=== PATIENT | male | born 1935 | race Caucasian/White ===

== ENCOUNTER 2020-08-12 22:57 | Inpatient (IN) | payer MEDICARE, SELFPAY ==
--- NOTE | ~2020-08-12 | XR_ITS ---
XR chest 2V DATE: 08/12/2020 23:56 INDICATION: Weakness TECHNIQUE: AP and lateral views COMPARISON: None FINDINGS: The cardiac and mediastinal silhouettes are unremarkable. There is extensive thoracic aorti c calcification. No hilar or mediastinal enlargement is evident. No pulmonary infiltrate or consolidation, pleural effusion or pulmonary vascular congestion or pneumo thorax is detected. 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 Minimal dextroscoliosis of the thoracic spine. Degenerativ e spurring of the thoracic and lumbar spine. IMPRESSION: No active cardiopulmonary disease Aortic atherosclerosis Reviewed, dictated and finalized at location A.
--- NOTE | ~2020-08-12 | US_ITS ---
EXAMINATION: US renal BI EXAM DATE: 08/13/2020 14:11 INDICATION: Elevated creatinine. TECHNIQUE: Multiple grayscale and Doppler images of the kidneys were obtained (by a technologist who performed the scan) and subsequently reviewed. There is no prior study for comparison. FINDINGS: Right kidney: There is normal contour and echogenicity. It measures 11.2 x 4.3 x 4.3 centimeters. T here are no focal renal lesions identified. There is no hydronephrosis. Left kidney: There is normal contour and echogenicity. It measures 12.6 x 4.5 x 2.1 centimeters. Th ere are no focal renal lesions identified. There is no hydronephrosis. Bladder unremarkable. IMPRESSION: 1. Sonographically unremarkable kidneys. Reviewed, dictated and finalized at location B.
[2020-08-12 22:58] VITALS: BP 85/45; PULSE 58; RESP 16; TEMP 36.1; O2SAT 100
[2020-08-12 23:09] VITALS: BP 103/56; PULSE 55; RESP 18; O2SAT 100
--- NOTE | 2020-08-12 23:14 | ECG_ITS ---
Measurements Intervals [place] Rate: 55 P: HI: 0 QRS: 109 QRSD: 172 T: 6 QT: 481 QTc: 461 Interpretive Statements ECTOPIC ATRIAL BRADYCARDIA RIGHT AXIS DEVIATION RIGHT BUNDLE BRANCH BLOCK MINIMAL Q WAVES- INFERIOR LEADS BASELINE ARTIFACT- I, II, III, AVR, AVL, AVF, V1-V6 ABNORMAL ECG Electronically Signed On 08-13-2020 6:58:50 CDT by Elier Glover D.O.
[2020-08-12 23:46] LABS: Basophils Absolute Auto 0.1 K/mm3 (0.0-0.1); Basophils Percent Auto 0.5 % (0.2-1.2); Eosinophils Absolute Auto 0.2 K/mm3 (0-0.3); Eosinophils Percent Auto 1.8 % (0-4.4); Hematocrit 38.1 % (42.0-52.0); Hemoglobin 13.1 g/dL (14.0-18.0); Immature Granulocyte Absolute 0.08 K/mm3 (0.00-0.031); Immature Granulocyte Percent A 0.7 % (0-0.5); Lymphocytes Absolute Auto 1.98 K/mm3 (0.9-3.2); Lymphocytes Percent Auto 17.9 % (18.3-44.2); Mean Corpuscular HGB Conc 34.4 g/dl (32-36); Mean Corpuscular Hemoglobin 34.1 pg (26-34); Mean Corpuscular Volume 99.2 fl (80-100); Monocytes Absolute Auto 1.1 K/mm3 (0.1-0.6); Monocytes Percent Auto 10.3 % (2.6-8.5); Neutrophils Absolute Auto 7.6 K/mm3 (1.3-6.7); Neutrophils Percent Auto 68.8 % (45.5-73.1); Platelet Count Result 185 k/mm3 (150-375); Red Blood Count 3.84 M/mm3 (4.6-6.20); Red Cell Distribution Width 11.2 % (11.5-14.5); White Blood Count 11.1 K/mm3 (4.5-10.0)
[2020-08-13] VITALS (12 sets, daily range): BP systolic 102–126; BP diastolic 55–71; PULSE 52–66; RESP 16–20; TEMP 36.2–37.1; O2SAT 96–100
[2020-08-13 00:16] LABS: Alanine Aminotransferase 21 U/L (4-50); Albumin Level 5.1 g/dL (3.5-5.1); Alkaline Phosphatase 55 U/L (38-126); Anion Gap 16 mmol/L (8-16); Aspartate Amino Transferase 35 U/L (17-59); Bilirubin,Total 1.3 mg/dL (0.2-1.3); Blood Urea Nitrogen 36 mg/dL (9-20); Calcium 10.1 mg/dL (8.4-10.2); Carbon Dioxide 28 mmol/L (22-30); Chloride 76 mmol/L (98-107); Estimated CRCL calculation 24 ml/min; Estimated Glomerular Filt Rate 23; Glucose 110 mg/dL (75-110); Potassium 3.6 mmol/L (3.4-5.0); Sodium 120 mmol/L (137-145)
--- NOTE | 2020-08-13 00:54 | ED.GENADULT ---
HPI - General Adult General Chief complaint: Recheck/Abnormal Lab/Rx Stated complaint: dr sent here for sodium level being low Time Seen by Provider: 08/12/20 23:08 Source: patient and family Mode of arrival: ambulatory Limitations: no limitations History of Present Illness HPI narrative: 85-year-old with a history of CAD, hypertension , hyperlipidemia here with complaints of having low sodium levels. Patient states that they were called by his primary doctor to go to the emergency room as his sodium levels were low. They are not quite sure how low they were. Patient states that they went to [place] emergency room as per the doctor advised however they have been in the waiting room for quite some time so they decided to come here to the ER he presently denies any headache weakness, nausea or vomiting or shortness of breath. He is on hydrochlorothiazide for his blood pressure. Denies drinking too much of water. Onset (ago): day(s) (1) Associated symptoms: denies other symptoms Related Data Home Medications Medication Instructions Recorded Confirmed aspirin [Aspirin Childrens] 81 mg PO DAILY 02/02/19 02/02/19 hydrochlorothiazide 12.5 mg PO DAILY 02/02/19 02/02/19 isosorbide mononitrate 30 mg PO DAILY 02/02/19 02/02/19 lisinopril 10 mg PO DAILY 02/02/19 02/02/19 metoprolol tartrate 50 mg PO DAILY 02/02/19 02/02/19 rosuvastatin 40 mg PO DAILY 02/02/19 02/02/19 alprazolam [Xanax] 0.25 mg PO TID PRN 08/12/20 bimatoprost [Lumigan] 1 drp EACH EYE QPM 08/12/20 loratadine [Claritin] 10 mg PO DAILY 08/12/20 Allergies Allergy/AdvReac Type Severity Reaction Status Date / Time No Known Allergies Allergy Verified 08/12/20 23:02 Review of Systems Review of Systems: All systems reviewed & are unremarkable except as noted in HPI and below Constitutional: Constitutional: Reports no additional constitutional complaints Eyes: Eyes: Reports no additional eye complaints ENT: Reports system reviewed and no additional complaints, except as documented Cardiovascular: Cardiovascular: Reports no additional cardiovascular complaints Respiratory: Respiratory: Reports no additional respiratory complaints Gastrointestinal: Gastrointestinal: Reports no additional gastrointestinal complaints Musculoskeletal: Musculoskeletal: Reports no additional musculoskeletal complaints Neurologic: Reports system reviewed and no additional complaints, except as documented PMFSH Social History Social History Gender identity (if verbalized by the patient): Male Sexual Orientation (if Verbalized by the Patient): Straight or Heterosexual Exam Narrative: Exam Narrative: GENERAL: Well-appearing, well-nourished, and in no acute distress. HEAD: Normocephalic, atraumatic. EYES: PERRLA and EOMI.. NECK: Supple. CHEST: Clear to auscultation. No respiratory distress. HEART: Regular rate and rhythm. No murmur heard. Normal peripheral pulses. ABDOMEN: Soft, nontender, nondistended, normal active bowel sounds. EXTREMITIES: Normal range of motion. No edema. SKIN: Warm, dry, no rash. NEURO: No focal deficits. Alert and oriented x3. PSYCH: Normal mood and affect. Course Course Emergency Course: Inform patient about the lab work. Will admit to the hospital for correction of his hyponatremia. I discussed with Dr. Serrano Vital Signs Vital signs: Vital Signs Temperature 36.1 C L 08/12/20 22:58 Pulse Rate 58 L 08/12/20 22:58 Respiratory Rate 16 08/12/20 22:58 Blood Pressure 85/45 L 08/12/20 22:58 Pulse Oximetry 100 08/12/20 22:58 Temperature 36.1 C L 08/12/20 22:58 Pulse Rate 55 L 08/12/20 23:09 Respiratory Rate 18 08/12/20 23:09 Blood Pressure 103/56 L 08/12/20 23:09 Pulse Oximetry 100 08/12/20 23:09 Medical Decision Making Vital Signs Vital Signs: Vital Signs Temperature 36.1 C L 08/12/20 22:58 Pulse Rate 58 L 08/12/20 22:58 Respiratory Rate 16
[2020-08-13] MEDS: SODIUM CHLORIDE 0.9% IV 1,000 ML 999 ML IV CONT (01:22)
[2020-08-13] MEDS: SODIUM CHLORIDE 0.9% IV 1,000 ML 125 ML IV CONT ×3 (03:29→17:34)
[2020-08-13 06:12] LABS: Add Urine Microscopic? YES; Appearance Urine Clear (Clear); Bilirubin Urine Negative (Negative); Blood Urine Negative (Negative); Color Urine Yellow (Yellow); Glucose Urine UA 1+ mg/dL (Negative); Ketones Urine Negative (Negative); Leukocyte Esterase Ur Negative LEU/UL (Negative); Mucus Urine Rare /lpf; Nitrate Urine Negative (Negative); Protein Urine Negative (Negative); Specific Grav Ur 1.009 (1.001-1.035); Squamous Epithelial Cell Urine Rare /hpf (Few); Urobilinogen Urine Negative mg/dL (<2.0); WBC Urine 0-3 /hpf
--- NOTE | 2020-08-13 06:14 | PM.IMHP ---
H&P: HPI History of Present Illness Date/Time: 08/13/20 06:14 Chief Complaint: Low-sodium on labs Narrative: 85-year-old male with past medical history of hypertension and hyperlipidemia who presented to the ER via private vehicle due to low sodiums on outpatient lab work. The patient evidently had seen his primary care physician and had routine labs performed. His labs came back with a low-sodium any was directed to go to [facility]. The patient went to [facility] where they had a 2 hour wait time in a told the patient that he would be waiting another 2 hours at which time he left that hospital in came to our hospital for evaluation . The labs he had obtained were routine in nature. However, a few days prior to his labs been drawn he had had 3 or 4 days of diarrheal stools. He had taken some Pepto-Bismol in his diarrhea has subsequently resolved. It has been almost 36 hours since he had a loose stool. He did not have any nausea, vomiting, abdominal pain, hematochezia or melena. He reports that his urine output has been normal. He has not had any recent changes in his medications. His labs in ER demonstrated hyponatremia and renal insufficiency. He denies any known history of renal disease. The patient reports that he was previously referred to a marble helper last year. He does not know if he was referred to a marble helper in the past due to hyponatremia or due to some renal insufficiency. He had never went to the marble helper appointment due to the pandemic. He denies any difficulty starting or stopping his stream. He denies sensation of incomplete bladder emptying. the patient reports that he usually drinks 3-4 mixed drinks a night. He has not had any alcohol in the last 2 weeks. Her he has not had any symptoms of alcohol withdrawal, irritability or agitation. He thought that he would quit drinking as it probably was not best for him to be drinking that much. He has not had any recent ill contacts. He received is COVID vaccines in February or March. Review of Systems Review of Systems: Narrative: 12 systems were reviewed with pertinent positives and negatives per HPI. Except as documented in the HPI, all other systems were reviewed and are negative. [facility] Past Medical History Medical History (Updated 08/13/20 @ 08:05 by Mariella Serrano DO) Coronary artery disease COVID-19 vaccine series completed (~03/2020) Essential hypertension Glaucoma Hyperlipidemia Surgical History Surgical History (Updated 08/13/20 @ 07:37 by Mariella Serrano DO) History of cardiac catheterization (~04/2019) with old prior occlusions noted, not a candidate for stent at that time per patient report History of detached retina repair left eye History of tonsillectomy and adenoidectomy Family History Family History (Updated 08/13/20 @ 07:37 by Mariella Serrano DO) Father Cerebral aneurysm Mother Heart disease Social History Social History (Updated 08/13/20 @ 07:53 by Mariella Serrano DO) Social History: He has been since 1956. He and his living Reynaldo caballero. He is retired from [employer]. They have 5 biological children and adopted 2 of their grand children. He usually drinks 3-4 mixed drinks a night. He is independent in activities of daily living and still drives. Smoking packs per day: 1 Smoking cigarettes per day: 20.0 Years smoked: 5 Smoking pack-years: 5.00 Smoking status: Former smoker Tobacco type: cigarettes Second hand tobacco smoke exposure: No Alcohol intake: current Drinks per week: 20 Substance use: never Gender identity (if verbalized by the patient): Male Sexual Orientation (if Verbalized by the Patient): Straight or Heterosexual Spiritual care concerns: No Meds Home Medications and Allergies Home Medications Medication Instructions Recorded Confirmed Type aspirin [Aspirin Childrens] 81 mg PO DAILY
[2020-08-13 06:48] LABS: Anion Gap 9 mmol/L (8-16); Blood Urea Nitrogen 34 mg/dL (9-20); Calcium 8.8 mg/dL (8.4-10.2); Carbon Dioxide 28 mmol/L (22-30); Chloride 84 mmol/L (98-107); Estimated CRCL calculation 28 ml/min; Estimated Glomerular Filt Rate 27; Glucose 94 mg/dL (75-110); Potassium 3.2 mmol/L (3.4-5.0); Sodium 121 mmol/L (137-145)
--- NOTE | 2020-08-13 07:50 | ADMGEN ---
This patient, Edison Burr, was admitted to [facility] Surg Room 304-01. Patient/family oriented to hospital policies and general routines including ID bracelet, bed and alarms, visiting hours, pain management, procedures, bathroom and other care routines, personal items, smoking policy, room service/diet, and visiting hours. Information on how to activate the Rapid Response Team has been discussed. Patient/Family are encouraged to report perceived risks to care and to ask questions if they do not understand what they are told or what they should do. Patient arrived at 0215. We discussed hospital policy, when to call for assistance, call light use, medications, current plan of care, and treatments. Patient was pleasant, very ELIM [place], and denies pain.
[2020-08-13] MEDS: ASPIRIN 81 MG CHEWABLE TABLET PO (09:02)
[2020-08-13] MEDS: POTASSIUM CHLORIDE 20 MEQ TABLET 40 MEQ PO ×2 (09:02→12:55)
[2020-08-13] MEDS: BRIMONIDINE TARTRATE 0.2% OP SOLN 5 ML BTL 1 DROP EACH EYE ×2 (09:03→16:53)
[2020-08-13] MEDS: METOPROLOL TARTRATE 50 MG TAB PO ×2 (09:04→20:33)
[2020-08-13] MEDS: ISOSORBIDE MONONITRATE 30 MG TAB.ER.24H PO (09:04)
[2020-08-13] MEDS: ENOXAPARIN 30 MG/0.3 ML SYRINGE SUB-Q (09:04)
[2020-08-13] MEDS: TIMOLOL MALEATE 0.5% OP SOLN 5 ML BOTTLE 1 DROP EACH EYE ×2 (09:05→16:53)
[2020-08-13] MEDS: ROSUVASTATIN 10 MG TABLET 40 MG PO (09:05)
[2020-08-13 10:23] LABS: Magnesium 1.6 mg/dL (1.6-2.3)
[2020-08-13 12:05] LABS: Potassium 3.3 mmol/L (3.4-5.0); Sodium 121 mmol/L (137-145)
--- NOTE | 2020-08-13 12:52 | PM.IMPN ---
Progress Note: A&P Assessment and Plan (1) Hyponatremia: Code(s): E87.1 - Hypo-osmolality and hyponatremia Status: Acute Assessment and Plan: His hyponatremia is at least part due to dehydration and volume depletion given his recent diarrheal illness and being on HCTZ. His sodium has remained stable, Na 120 on arrival, then with IV fluids went to 121. IV fluids were discontinued at 0743 and repeat Na at 1200 was stable at 121. Chest x-ray shows No active cardiopulmonary disease. Aortic atherosclerosis. Will continue the patient back on IV fluids at 125 cc/hr. ordering urine sodium, creatinine to check his FENA. ordering urine osmolality. Nephrology was consulted and their input is greatly appreciated Continue monitoring Sodium Q6hr. Hold HCTZ and Lisinopril. (2) KHADIJAH (acute kidney injury): Code(s): N17.9 - Acute kidney failure, unspecified Status: Acute Assessment and Plan: Patient denies any history of kidney dysfunction in his past. Creatinine on arrival was 2.7 with an elevated BUN at 36. After some IV fluids overnight and 2.3/34. Will continue IV fluids at this time and nephrology was consulted for further evaluation and monitoring. (3) Hypokalemia: Code(s): E87.6 - Hypokalemia Status: Acute Assessment and Plan: Hypokalemia which could be from IV fluid dilution. It was 3.6 when he came in and now it is 3.3. Will continue to replenish. His magnesium was also low at 1.6 so I will give IV magnesium 3 g and recheck in the morning. Continue monitoring and supplement as needed. Time Spent With Patient Time with patient: 25 - 35 minutes Subjective Date/time seen: 08/13/20 12:52 Interval history: Date of Service 08/13/20: the patient reports feeling well today. He has no current complaints other than only getting 1 hour asleep last night and being tired. He denies any history of kidney problems or low-sodium in his past. He has been having diarrhea the last few days and otherwise continuing to take his medications without any issues. He denies any urinary symptoms, other than slight darkening of his urine but states is now clear and normal. He denies any chest pain, shortness of breath, cough, fever, chills, nausea, vomiting, abdominal pain, leg swelling, calf pain or any other symptoms at this time. Review of Systems Review of Systems: All systems reviewed & are unremarkable except as noted in HPI and below Exam Narrative: Exam Narrative: General: 85-year-old man sitting up in the bed watching TV. Appears comfortable. In no acute distress. Skin: No jaundice or cyanosis. Good skin turgor. Neck: Full range of motion. Supple. Respiratory: Lungs are clear to auscultation bilaterally. No bony chest wall tenderness. Cardiovascular: The heart has a regular rate and rhythm without murmur. Lower extremities: No lower extremity edema. Distal pulses are easily palpated. No calf tenderness to palpation. Gastrointestinal: The abdomen is soft, nontender and nondistended with active bowel sounds. Psychiatric: Lucid and oriented. Memory intact. Neurologic: No focal deficits. Speech is clear. No facial drooping. Objective Data Vital Signs Vital Signs: Vital Signs - 24 hr 08/12/20 22:58 08/12/20 23:09 08/13/20 01:42 Temperature 96.9 F L Pulse Rate 58 L 55 L 60 Respiratory Rate 16 18 20 Blood Pressure 85/45 L 103/56 L 126/60 Pulse Oximetry 100 100 99 08/13/20 02:15 08/13/20 04:00 08/13/20 06:16 Temperature 97.1 F L 97.3 F L Pulse Rate 59 L 59 L 66 Respiratory Rate 18 16 Blood Pressure 119/71 118/60 Pulse Oximetry 98 100 08/13/20 08:00 08/13/20 09:04 08/13/20 12:00 Temperature Pulse Rate 63 63 56 L Respiratory Rate Blood Pressure Pulse Oximetry Intake/Output
--- NOTE | 2020-08-13 13:22 | PM.CNNEP ---
Assessment and Plan Assessment and plan (1) KHADIJAH (acute kidney injury): Code(s): N17.9 - Acute kidney failure, unspecified Status: Acute Assessment and Plan: The patient has acute kidney injury. Urinalysis shows a little bit of Sugar but is otherwise bland. his blood sugar was okay at that time. Most likely this is a case of dehydration from the diarrhea. He also was on ibuprofen which might exacerbate this issue. His creatinine was 2.7 yesterday and is down to 2.3 today. Will check a renal ultrasound, urine electrolytes and eosinophils. Continue IV fluid (2) Hyponatremia: Code(s): E87.1 - Hypo-osmolality and hyponatremia Status: Acute Assessment and Plan: sodium level is low. Apparently there is no history of low sodium in the past. Things that cause this include dehydration, medications such as diuretics antidepressants and narcotics, cancer, lung disease, brain disease. He does not have any history of the latter 3 but he is on hydrochlorothiazide And he was dehydrated. He is on hydrochlorothiazide which can do this, especially if he became dehydrated with the diarrhea and was drinking fluid. hypothyroidism and adrenal insufficiency can also cause hyponatremia. We will check for these. Will also check serum and urine osmolality as well as an SPEP. Right now will continue the IV fluids as dehydration may be playing a role. His hydrochlorothiazide was already stopped. It is been 24 hours and his sodium is not start correcting it. Will put him on a fluid restriction and check another sodium this afternoon. (3) Hypokalemia: Code(s): E87.6 - Hypokalemia Status: Acute Assessment and Plan: Hypokalemia is probably from the diarrhea and also from the hydrochlorothiazide. Will check urine electrolytes. (4) Essential hypertension: Code(s): I10 - Essential (primary) hypertension Status: Inactive Assessment and Plan: Blood pressure is under good control (5) Coronary artery disease: Code(s): I25.10 - Atherosclerotic heart disease of [place] coronary artery without angina pectoris Status: Inactive History of Present Illness Reason for Consult Consult date: 08/13/20 Chief Complaint Chief complaint: Hyponatremia History of Present Illness Narrative: Edison is a very pleasant 85-year-old gentleman who has multiple medical problems including coronary disease on medical therapy, hypertension, glaucoma, hyperlipidemia. The patient has had been having diarrhea for the last 3 or 4 days before admission. He said it was copious amounts. He was not eating very well at the time. He took some Pepto-Bismol and has not had a bowel movement since then. The dose of Pepto-Bismol happened about day and a half before he was admitted. he went to see his physician because of the diarrhea and blood was drawn. The sodium level was very low so has doctor called him and told him to go to the emergency room. He eventually made it to [facility] and was seen in the ER and evaluated. His sodium was low and his creatinine was high. He was admitted and given some IV fluids. The sodium is not improved so renal consultation was requested. The patient has never been told that his sodium was low in the past. He gets his blood work done at [facility] in so there is nothing available to us. On admission his sodium was 120 and today his sodium is 121. His says he tries to drink fluid. he denies any history of cancer. He had a colonoscopy a few years ago which was negative and was told not to have any more. He does not have any history of chest issues. No history of brain issues. No weight loss. He takes hydrochlorothiazide. He is also on ibuprofen every night. He does not take narcotics nor antidepressants. Review of Systems Constitutional: Constitutional: Reports no additional constitutional complain
[2020-08-13] MEDS: MAGNESIUM SULFATE 3GM/D5W100ML 3 GM/100 ML BAG IVPB (13:37)
[2020-08-13 15:06] LABS: Creatine Kinase 91 U/L (55-170)
[2020-08-13 16:44] LABS: Sodium 123 mmol/L (137-145)
[2020-08-13 17:18] LABS: Total Protein Urine Random 15 mg/dL; Ur Ttl Prot Creatinine Ratio 0.28 mg/mg (0-0.20)
[2020-08-13 17:23] LABS: Potassium Urine Random 18.8 meq/L; Sodium Urine Random 41 meq/L
[2020-08-13 19:28] LABS: Eosinophil Urine None Seen % (None Seen)
[2020-08-13] MEDS: LATANOPROST 0.005% OP SOLN 2.5 ML BTL 1 DROP EACH EYE (20:33)
[2020-08-13 22:11] LABS: Sodium 124 mmol/L (137-145)
[2020-08-14] VITALS (12 sets, daily range): BP systolic 122–140; BP diastolic 60–67; PULSE 52–69; RESP 18–20; TEMP 36.6; O2SAT 94–98
[2020-08-14] MEDS: SODIUM CHLORIDE 0.9% IV 1,000 ML 125 ML IV CONT ×2 (01:18→09:36)
[2020-08-14 02:07] LABS: Sodium 126 mmol/L (137-145)
[2020-08-14 06:28] LABS: Mean Corpuscular HGB Conc 34.4 g/dl (32-36); Mean Corpuscular Hemoglobin 34.7 pg (26-34); Mean Corpuscular Volume 100.9 fl (80-100); Mean Platelet Volume 9.2 fl (7.4-10.4); Platelet Count Result 141 k/mm3 (150-375); Red Blood Count 3.17 M/mm3 (4.6-6.20); Red Cell Distribution Width 11.1 % (11.5-14.5); White Blood Count 6.8 K/mm3 (4.5-10.0)
[2020-08-14 06:41] LABS: Sodium 128 mmol/L (137-145)
[2020-08-14 06:42] LABS: Anion Gap 10 mmol/L (8-16); Blood Urea Nitrogen 30 mg/dL (9-20); Calcium 9.2 mg/dL (8.4-10.2); Carbon Dioxide 25 mmol/L (22-30); Chloride 93 mmol/L (98-107); Estimated CRCL calculation 40 ml/min; Estimated Glomerular Filt Rate 41; Glucose 94 mg/dL (75-110); Sodium 128 mmol/L (137-145)
--- NOTE | 2020-08-14 06:56 | PC.NURSE ---
Called Dr Bucio's paging service at 0022 on pt's sodium level per request. No call back received. Patient was very lethargic tonight. He had been very restless the night before. He had no complaints of pain or difficulty breathing. He consumed less than his allotted water, likely due to lethargy. Sodium levels appear to continue rising.
[2020-08-14] MEDS: ENOXAPARIN 30 MG/0.3 ML SYRINGE SUB-Q (08:21)
[2020-08-14] MEDS: ASPIRIN 81 MG CHEWABLE TABLET PO (08:21)
[2020-08-14] MEDS: BRIMONIDINE TARTRATE 0.2% OP SOLN 5 ML BTL 1 DROP EACH EYE ×2 (08:21→17:34)
[2020-08-14] MEDS: ROSUVASTATIN 10 MG TABLET 40 MG PO (08:22)
[2020-08-14] MEDS: METOPROLOL TARTRATE 50 MG TAB PO ×2 (08:22→21:18)
[2020-08-14] MEDS: TIMOLOL MALEATE 0.5% OP SOLN 5 ML BOTTLE 1 DROP EACH EYE ×2 (08:22→17:34)
[2020-08-14] MEDS: ISOSORBIDE MONONITRATE 30 MG TAB.ER.24H PO (08:22)
[2020-08-14 12:18] LABS: Sodium 127 mmol/L (137-145)
--- NOTE | 2020-08-14 12:31 | PM.IMPN ---
Progress Note: A&P Assessment and Plan (1) Hyponatremia: Code(s): E87.1 - Hypo-osmolality and hyponatremia Status: Acute Assessment and Plan: His hyponatremia is at least part due to dehydration and volume depletion given his recent diarrheal illness and being on HCTZ. His sodium has remained stable, Na 120 on arrival, then with IV fluids went to 121. IV fluids were discontinued at 0743 and repeat Na at 1200 was stable at 121. today sodium is 128 Chest x-ray shows No active cardiopulmonary disease. Aortic atherosclerosis. Will continue the patient back on IV fluids at 125 cc/hr. ordering urine sodium, creatinine to check his FENa which is 1, which looks like it could be from lack of perfusion. Nephrology was consulted and their input is greatly appreciated Continue monitoring Sodium Q6hr. Hold HCTZ and Lisinopril. (2) KHADIJAH (acute kidney injury): Code(s): N17.9 - Acute kidney failure, unspecified Status: Acute Assessment and Plan: Patient denies any history of kidney dysfunction in his past. Creatinine on arrival was 2.7 with an elevated BUN at 36. After some IV fluids overnight and 07/03.60 Will continue IV fluids at this time and nephrology was consulted for further evaluation and monitoring. (3) Hypokalemia: Code(s): E87.6 - Hypokalemia Status: Acute Assessment and Plan: Hypokalemia which could be from IV fluid dilution. It was 3.6 when he came in and now it is 3.3. Will continue to replenish. His magnesium was also low at 1.6 so I will give IV magnesium 3 g and recheck in the morning. Today K 4.0 and will recheck mag in the am Continue monitoring and supplement as needed. Additional Plan His hyponatremia is at least part due to dehydration and volume depletion given his recent diarrheal illness. His sodium has improved from 120-121 after IV fluid hydration. However his potassium is now dropped. A 40 mg p.o. potassium supplement has been ordered. Subjective Date/time seen: 08/14/20 12:18 Interval history: Patient is an 85-year-old male with past medical history of hypertension and hyperlipidemia who presented to the ER for evaluation of low sodiums on outpatient lab work. Today patient stated he is better. He stated that he is feeling ok. He does not have any complaints of shortness of breath, chest pain, nausea, vomiting, diarrhea, abdominal pain, dizziness, sweats, chills, headache or any other complaints. He does seem concerned about keeping the fluids, and would like to have them off. Explained that they will come off when labs are better. Review of Systems Review of Systems: All systems reviewed & are unremarkable except as noted in HPI and below Exam Const: General: cooperative, healthy appearing, comfortable, no acute distress, well developed, alert, awake and Physically active Nutritional Appearance: average body habitus, well nourished and overweight Orientation/consciousness: oriented to person, oriented to place, oriented to time and patient oriented x3 Limitations: no limitations HENMT: Head: normal to inspection Ears: hearing grossly normal bilaterally General nose exam: Normal external nose present Mouth: Yes Normal oral and palatal mucosa present, Yes lip normal and Yes tongue normal Teeth and gingiva: abnormal tooth and associated gingiva and poor dentition Eyes: General: appearance normal, both eyes and all related structures Neck: Neck: normal visual inspection, full ROM, trachea midline and supple Chest: Chest palpation & inspection: normal inspection of the chest Resp: Effort & Inspection: normal respiratory effort and able to speak in complete sentences Auscultation: clear to auscultation bilaterally Cardio: Jugular venous distension: no JVD Rate: regular rate Rh
--- NOTE | 2020-08-14 14:11 | PM.PNNEP ---
Progress Note: A&P Assessment and Plan (1) KHADIJAH (acute kidney injury): Code(s): N17.9 - Acute kidney failure, unspecified Status: Acute Assessment and Plan: The patient has acute kidney injury. Urinalysis Shows a bland sediment. He has a little bit of protein. Urine electrolytes are non pre renal , however he was on diuretics on admission. urine eosinophils are negative renal ultrasound is normal Most likely this is a case of dehydration from the diarrhea. He also was on ibuprofen which might exacerbate this issue. His creatinine was 2.7 yesterday and is down to 1.6 today. Will check a renal ultrasound, urine electrolytes and eosinophils. he is eating well so we can stop the IV fluids. (2) Hyponatremia: Code(s): E87.1 - Hypo-osmolality and hyponatremia Status: Acute Assessment and Plan: sodium level is low. Most likely due to dehydration and thiazide diuretic His cortisol level is only 11 so will check a Cortrosyn stim test. TSH was not done. Will repeat this Order He was getting IV fluids because he was dehydrated. His sodium has corrected. His delta sodium was 7 over the last 24 hours. Because he is eating were going to stop his IV fluids but continue his fluid restriction. Will hold off on thiazide diuretics going forward. continue fluid restriction (3) Hypokalemia: Code(s): E87.6 - Hypokalemia Status: Acute Assessment and Plan: Hypokalemia is probably from the diarrhea and also from the hydrochlorothiazide. Will check urine electrolytes. (4) Essential hypertension: Code(s): I10 - Essential (primary) hypertension Status: Inactive Assessment and Plan: Blood pressure is under good control (5) Coronary artery disease: Code(s): I25.10 - Atherosclerotic heart disease of [place] coronary artery without angina pectoris Status: Inactive Subjective Date/time seen: 08/14/20 14:11 Interval history: Edison is feeling better today. Eager for discharge. Eating well. So getting IV fluids. Review of Systems Cardiovascular: Cardiovascular: Reports no additional cardiovascular complaints Respiratory: Respiratory: Reports no additional respiratory complaints Gastrointestinal: Gastrointestinal: Reports no additional gastrointestinal complaints Genitourinary: Genitourinary: Reports no additional male genitourinary complaints Exam Narrative: Exam Narrative: WDWN in NAD skin no rash head ncat lungs clear cor reg no rub abd BS+ nontender and soft ext no edema. Objective Data Vital Signs Vital Signs: Vital Signs - 24 hr 08/13/20 16:00 08/13/20 20:00 08/13/20 20:33 Temperature Pulse Rate 55 L 53 L 52 L Respiratory Rate Blood Pressure Pulse Oximetry 08/13/20 21:37 08/14/20 00:00 08/14/20 04:00 Temperature 37.1 C Pulse Rate 54 L 52 L 53 L Respiratory Rate 18 Blood Pressure 102/55 L Pulse Oximetry 97 08/14/20 05:46 08/14/20 08:00 08/14/20 08:22 Temperature 36.6 C Pulse Rate 68 66 66 Respiratory Rate 18 Blood Pressure 140/67 Pulse Oximetry 94 08/14/20 09:33 08/14/20 12:00 08/14/20 13:28 Temperature 36.6 C Pulse Rate 69 63 Respiratory Rate 18 Blood Pressure 122/67 Pulse Oximetry 94 98 Intake/Output Intake/Output: Intake & Output 08/11/20 08/12/20 08/13/20 08/14/20 23:59 23:59 23:59 23:59 Intake Total 3470 2620 Output Total 1400 700 Balance 2070 1920 Meds/Results Medications: Active Medications Generic Name Dose Route Start Last Admin Trade Name Freq PRN Reason Stop Dose Admin Acetaminophen 650 mg 08/13/20 01:06 Acetaminophen 325 Mg Tablet PO Q4H PRN Mild Pain (1-3) or Fever Alprazolam 0.25 mg 08/13/20 06:12 Alprazolam (*Crx) 0.25 Mg Tablet PO HS PRN Anxiety Aspirin 81 mg 08/13/20 08:00 08/14/20 08:21 Aspirin 81 Mg Chewable Tablet
[2020-08-14] MEDS: COSYNTROPIN 0.25 MG/ML VIAL IV PUSH (15:13)
[2020-08-14 16:14] LABS: Cortisol Baseline 9.94 ug/dL
[2020-08-14 18:22] LABS: Sodium 129 mmol/L (137-145)
[2020-08-14] MEDS: diphenhydrAMINE HCl CAP 25 MG CAPSULE PO (21:17)
[2020-08-14] MEDS: LATANOPROST 0.005% OP SOLN 2.5 ML BTL 1 DROP EACH EYE (21:18)
[2020-08-14] MEDS: ALPRAZolam (*CRX) 0.25 MG TABLET PO (21:18)
[2020-08-15] VITALS: PULSE 60
[2020-08-15 00:59] LABS: Sodium 130 mmol/L (137-145)
[2020-08-15 04:00] VITALS: PULSE 53
[2020-08-15 06:00] VITALS: BP 127/72; PULSE 59; RESP 20; TEMP 36.3; O2SAT 99
[2020-08-15 06:32] LABS: Basophils Percent Auto 0.7 % (0.2-1.2); Eosinophils Absolute Auto 0.2 K/mm3 (0-0.3); Eosinophils Percent Auto 3.3 % (0-4.4); Hemoglobin 10.9 g/dL (14.0-18.0); Immature Granulocyte Absolute 0.03 K/mm3 (0.00-0.031); Immature Granulocyte Percent A 0.5 % (0-0.5); Lymphocytes Absolute Auto 1.37 K/mm3 (0.9-3.2); Lymphocytes Percent Auto 23.8 % (18.3-44.2); Mean Corpuscular HGB Conc 34.1 g/dl (32-36); Mean Corpuscular Hemoglobin 34.6 pg (26-34); Mean Corpuscular Volume 101.6 fl (80-100); Mean Platelet Volume 9.1 fl (7.4-10.4); Monocytes Absolute Auto 0.6 K/mm3 (0.1-0.6); Neutrophils Absolute Auto 3.5 K/mm3 (1.3-6.7); Neutrophils Percent Auto 60.7 % (45.5-73.1); Platelet Count Result 145 k/mm3 (150-375); Red Blood Count 3.15 M/mm3 (4.6-6.20); Red Cell Distribution Width 11.2 % (11.5-14.5); White Blood Count 5.8 K/mm3 (4.5-10.0)
[2020-08-15 06:47] LABS: Alanine Aminotransferase 19 U/L (4-50); Albumin Level 3.9 g/dL (3.5-5.1); Alkaline Phosphatase 45 U/L (38-126); Anion Gap 11 mmol/L (8-16); Aspartate Amino Transferase 28 U/L (17-59); Bilirubin,Total 0.8 mg/dL (0.2-1.3); Blood Urea Nitrogen 22 mg/dL (9-20); Calcium 9.1 mg/dL (8.4-10.2); Carbon Dioxide 25 mmol/L (22-30); Chloride 95 mmol/L (98-107); Estimated CRCL calculation 52 ml/min; Estimated Glomerular Filt Rate 58; Glucose 88 mg/dL (75-110); Magnesium 1.9 mg/dL (1.6-2.3); Potassium 3.2 mmol/L (3.4-5.0); Sodium 131 mmol/L (137-145)
[2020-08-15 08:00] VITALS: PULSE 65
[2020-08-15] MEDS: ROSUVASTATIN 10 MG TABLET 40 MG PO (08:06)
[2020-08-15 08:07] VITALS: PULSE 64
[2020-08-15] MEDS: ASPIRIN 81 MG CHEWABLE TABLET PO (08:07)
[2020-08-15] MEDS: TIMOLOL MALEATE 0.5% OP SOLN 5 ML BOTTLE 1 DROP EACH EYE (08:07)
[2020-08-15] MEDS: METOPROLOL TARTRATE 50 MG TAB PO (08:07)
[2020-08-15] MEDS: BRIMONIDINE TARTRATE 0.2% OP SOLN 5 ML BTL 1 DROP EACH EYE (08:07)
[2020-08-15] MEDS: ISOSORBIDE MONONITRATE 30 MG TAB.ER.24H PO (08:07)
[2020-08-15] MEDS: ENOXAPARIN 30 MG/0.3 ML SYRINGE SUB-Q (08:07)
--- NOTE | 2020-08-15 11:08 | PM.PNNEP ---
Progress Note: A&P Assessment and Plan (1) KHADIJAH (acute kidney injury): Code(s): N17.9 - Acute kidney failure, unspecified Status: Acute Assessment and Plan: The patient has acute kidney injury. Urinalysis Shows a bland sediment. He has a little bit of protein. Urine electrolytes are non pre renal , however he was on diuretics on admission. urine eosinophils are negative renal ultrasound is normal Most likely this is a case of dehydration from the diarrhea. He also was on ibuprofen which might exacerbate this issue. His creatinine was 2.7 yesterday and is down to 1.2. Will check a renal ultrasound, urine electrolytes and eosinophils. Doing well off IV fluids. Okay for discharge from the renal standpoint (2) Hyponatremia: Code(s): E87.1 - Hypo-osmolality and hyponatremia Status: Acute Assessment and Plan: sodium level is low. Most likely due to dehydration and thiazide diuretic His cortisol level is only 11 so we did a Cortrosyn stim test which was fine. TSH Is normal. His sodium level is up to 131. He can continue fluid restriction at home and can seen me in the office if he likes to follow up with the sodium. He should get a sodium level mid next week and call the office for results. (3) Hypokalemia: Code(s): E87.6 - Hypokalemia Status: Acute Assessment and Plan: Hypokalemia is probably from the diarrhea and also from the hydrochlorothiazide. His urine potassium was only 18 confirming the above. Since he is off hydrochlorothiazide his urine potassium has dropped down appropriately. Will give another potassium supplement today. (4) Essential hypertension: Code(s): I10 - Essential (primary) hypertension Status: Inactive Assessment and Plan: Blood pressure is under good control (5) Coronary artery disease: Code(s): I25.10 - Atherosclerotic heart disease of [place] coronary artery without angina pectoris Status: Inactive Subjective Date/time seen: 08/15/20 11:08 Interval history: Edison is feeling better today. eating well and slept well. Exam Narrative: Exam Narrative: WDWN in NAD skin no rash head ncat lungs clear bilaterally cor reg no rub abd BS+ nontender and soft ext no edema. Or cyanosis Objective Data Vital Signs Vital Signs: Vital Signs - 24 hr 08/14/20 12:00 08/14/20 13:28 08/14/20 16:00 Temperature 36.6 C Pulse Rate 69 63 65 Respiratory Rate 18 Blood Pressure 122/67 Pulse Oximetry 98 08/14/20 20:00 08/14/20 21:18 08/14/20 22:00 Temperature 36.6 C Pulse Rate 62 65 55 L Respiratory Rate 20 Blood Pressure 130/60 Pulse Oximetry 98 08/15/20 00:00 08/15/20 04:00 08/15/20 06:00 Temperature 36.3 C L Pulse Rate 60 53 L 59 L Respiratory Rate 20 Blood Pressure 127/72 Pulse Oximetry 99 08/15/20 08:00 08/15/20 08:07 Temperature Pulse Rate 65 64 Respiratory Rate Blood Pressure Pulse Oximetry Intake/Output Intake/Output: Intake & Output 08/12/20 08/13/20 08/14/20 08/15/20 23:59 23:59 23:59 23:59 Intake Total 3470 3360 380 Output Total 1400 700 Balance 2070 2660 380 Meds/Results Medications: Active Medications Generic Name Dose Route Start Last Admin Trade Name Freq PRN Reason Stop Dose Admin Acetaminophen 650 mg 08/13/20 01:06 Acetaminophen 325 Mg Tablet PO Q4H PRN Mild Pain (1-3) or Fever Alprazolam 0.25 mg 08/13/20 06:12 08/14/20 21:18 Alprazolam (*Crx) 0.25 Mg Tablet PO 0.25 mg HS PRN Administration Anxiety Aspirin 81 mg 08/13/20 08:00 08/15/20 08:07 Aspirin 81 Mg Chewable Tablet PO 81 mg DAILY@0800 ROZ Administration Brimonidine Tartrate 1 drop 08/13/20 09:00 08/15/20 08:07 Brimonidine Tartrate 0.2% Op Soln 5 Ml Btl EACH EYE 09/12/20 09:01 1 drop BID ROZ Administration Diphenhydramine HCl 25 mg 08/13/20 06:19 08/14/20
[2020-08-15] MEDS: POTASSIUM CHLORIDE 20 MEQ PACKET (FOR LIQUID) 40 MEQ PO (11:23)
[2020-08-15 12:00] VITALS: PULSE 62
--- NOTE | 2020-08-15 12:03 | PM.DS ---
DS: Admitting Diagnosis Admitting Diagnosis Admitting Diagnosis: Hyponatremia DS: Discharge Diagnosis Discharge Diagnosis (1) Hyponatremia: Code(s): E87.1 - Hypo-osmolality and hyponatremia Status: Acute Assessment and Plan: Na 120 on admission. Chest x-ray shows no active cardiopulmonary disease. Aortic atherosclerosis. UA was bland and urine electrolytes consistent with non-prerenal but was on diuretics on admission. Renal US was normal. His cortisol level was 11 so a Cortrosyn stim test was performed which was normal. TSH normal. HCTZ and Lisinopril held. Nephrology followed along. He was started on IV fluids and sodium climbed to 131 in a slow predictable pattern. (2) KHADIJAH (acute kidney injury): Code(s): N17.9 - Acute kidney failure, unspecified Status: Acute Assessment and Plan: Creatinine 2.7 on admission. [place] related to dehydration diarrhea and hydrochlorothiazide. He is also taking ibuprofen which was probably contributing to this issue. Related to HoTN also? Lisinopril and hydrochlorothiazide were held. With IV fluids, creatinine trended down to 1.2 today. Patient feels well. No nausea or vomiting. Eating normally. Feels ready for discharge. (3) Hypokalemia: Code(s): E87.6 - Hypokalemia Status: Acute Assessment and Plan: Potassium mildly decreased felt related to the diarrhea and hydrochlorothiazide. IV fluids also may be contributing to this as well. Will need follow-up labs to ensure stability. (4) Essential hypertension: Code(s): I10 - Essential (primary) hypertension Status: Acute Assessment and Plan: Blood pressure was low on admission at 85/45. With being off the HCTZ and lisinopril, blood pressure improved and remained stable during his hospital course. No plans to resume these medications. We did continue his Imdur and Lopressor which he tolerated well. DS: Summary Hospital Course Reason for hospitalization: 85yo male here for hyponatremia and found to have KHADIJAH. Please see H&P for details. Hospital Course: Please see above for details of hospital course Status at Discharge Cognitive/behavioral status at discharge: stable Time Spent with Patient Time attestation: Total time spent providing and/or coordinating discharge services: 35 minutes Time spent: Greater than 30 minutes Exam Narrative: Exam Narrative: AF 97.3 127/72 64 20 99% ra Gen - NARD Chest - CTA bilaterally, nml RR CV - RRR S1/S2 Abd - Soft, NT/ND, Positive BS Ext - No pedal edema Psych - Nml mood and affect Skin - Warm and dry DS: Data Data Completed and Pending Labs on day of discharge: Labs from last 24 hours 08/15/20 08/15/20 08/15/20 05:34 05:34 00:32 WBC 5.8 RBC 3.15 L Hgb 10.9 L Hct 32.0 L MCV 101.6 H MCH 34.6 H MCHC 34.1 RDW 11.2 L Plt Count 145 L MPV 9.1 Immature Gran % (Auto) 0.5 Neut % (Auto) 60.7 Lymph % (Auto) 23.8 [place] % (Auto) 11.0 H Eos % (Auto) 3.3 Baso % (Auto) 0.7 Lymph # (Auto) 1.37 [place] # (Auto) 0.6 Eos # (Auto) 0.2 Baso # (Auto) 0.0 Abs Immat Gran (auto) 0.03 Absolute Neuts (auto) 3.5 Absolute Nucleated RBC 0.0 Nucleated RBC % 0.0 Sodium 131 L 130 L Potassium 3.2 L Chloride 95 L Carbon Dioxide 25 Anion Gap 11 BUN 22 H Creatinine 1.20 Estim Creat Clear Calc 52 Estimated GFR 58 L Glucose 88 Calcium 9.1 Magnesium 1.9 Total Bilirubin 0.8 AST 28 ALT 19 Alkaline Phosphatase 45 Total Protein 6.0 L Albumin 3.9 TSH (Reflex) Cortisol Baseline Cortisol Resp 30 Min Cortisol Resp 60 Min 08/14/20 08/14/20 08/14/20 17:44 16:19 15:48 WBC RBC Hgb Hct MCV MCH MCHC RDW Plt Count MPV Immature Gran % (Auto) Neut % (Auto) Lymph % (Auto) [place] % (Auto) Eos % (Auto) Baso % (Aut
[2020-08-15 21:52] LABS: Osmolality, Urine 290 mOsm/kg (50-1200)
[2020-08-16 06:38] LABS: Albumin 3.6 g/dL (3.8-4.8); Alpha 1 Globulin 0.3 g/dL (0.2-0.3); Alpha 2 Globulin 0.8 g/dL (0.5-0.9); Beta 1 Globulin 0.4 g/dL (0.4-0.6); Gamma Globulin 0.6 g/dL (0.8-1.7); Interpretation Consistent with; Protein, Total 5.9 g/dL (6.1-8.1)
--- NOTE | 2020-08-18 08:21 | PC.NURSE ---
SPEP- No M spike detected. Dr. Kylah aguirre.
== END 2020-08-15 13:10 | disposition home or self-care (01) | DRG 683 ==
LOC: ANHED 08-13 00:55 → ANH3MEDSUR 08-13 08:41
PROVIDERS: Internal Medicine Nephrology; Nurse Practitioner; Admitting Provider Internal Medicine; Emergency Provider Family Medicine; PCP Internal Medicine; Visit Provider Physician Assistant
DX: N17.9 Acute kidney failure, unspecified (principal); E87.1 Hypo-osmolality and hyponatremia; E87.6 Hypokalemia; E86.0 Dehydration; T50.2X5A Adverse effect of carbonic-anhydrase inhibitors, benzothiadiazides and other diuretics, initial encounter; I10 Essential (primary) hypertension; I25.10 Atherosclerotic heart disease of native coronary artery without angina pectoris; E78.5 Hyperlipidemia, unspecified; H40.9 Unspecified glaucoma; Z87.891 Personal history of nicotine dependence
CPT/HCPCS: 36415; 71046; 76775; 80048; 80053; 81001; 82533; 82550; 82570; 83735; 83930; 83935; 84132; 84133; 84155; 84156; 84165; 84295; 84300; 84443; 85025; 85027; 85999; 93005; 99285; A9270; J0834; J1650; J3475; J7030

== ENCOUNTER 2020-09-02 12:23 | Outpatient (CLI) | payer MEDICARE, SELFPAY ==
--- NOTE | ~2020-09-02 | XR_ITS ---
EXAMINATION: XR lg joint inject/asp w image DATE: 09/02/2020 13:14 INDICATION: Left shoulder osteoarthritis with pain TECHNIQUE: A time-out was performed to verify the patient's name, date of , and procedure to b e performed. The procedure including the risks, benefits, and alternatives was discussed with the pat ient. Risks discussed included bleeding and infection. The patient understood the risks and agreed to proceed. The skin overlying the left glenohumeral joint was prepped and draped in usual sterile fas hion. Anesthetic was administered with 1% lidocaine subcutaneously. A 22 G needle was advanced unde r fluoroscopic guidance into the joint. Injection of 1 mL of Omnipaque 240 confirmed intra-articular position of the needle. Subsequently, injectate consisting of 5 mL of a 4:1 mixture of 1% lidocaine : 80 mg/mL Depo-Medrol for a total dosage of 80 mg Depo-Medrol was instilled. Washout of contrast was seen confirming intra-articular administration. The needle was removed and the entry site was cleane d and dressed. There were no immediate complications. Fluoroscopy exposure time was 0.1 minutes. The total number of images was 2. FINDINGS: Real-time fluoroscopy demonstrates the needle in the left glenohumeral joint. Patient's juan jose n prior to procedure:06/15. Patient's pain following the procedure: 02/15. IMPRESSION: 1. Left glenohumeral joint injection of local anesthetic and steroid with decrease in the patient's p resenting pain. Reviewed, dictated and finalized at location A. IMPRESSION: 1. Left glenohumeral joint injection of local anesthetic and steroid with decre ase in the patient's presenting pain.
== END 2020-09-02 12:24 | disposition home or self-care (01) ==
LOC: ANHIMG 12:24
PROVIDERS: PCP Internal Medicine; Visit Provider Orthopaedic Surgery
DX: M19.012 Primary osteoarthritis, left shoulder (principal)
CPT/HCPCS: 20610; 77002; J1040; Q9966

== ENCOUNTER 2021-09-22 20:00 | Observation (INO) | payer MEDICARE, SELFPAY ==
--- NOTE | ~2021-09-22 | CT_ITS ---
EXAMINATION: CT cervical spine wo con DATE: 09/22/2021 20:43 INDICATION: Dizziness. Fall. TECHNIQUE: Computed tomography (CT) of the cervical spine was performed without intravenous contrast. Automated exposure control and iterative reconstruction technique were employed. The dose-length pro duct was 574.53 mGy-cm. COMPARISON: None FINDINGS: There is 9 degrees levocurvature of cervical spine. There is 2 mm retrolisthesis of C5 on C 6. Vertebral body heights are normal. There is moderately decreased disc height at C3-C4 with interbo dy fusion. There is mildly decreased disc height at C4-C5. There is severely decreased disc height at C5-C6, C6-C7, and C7-T1 with interbody fusion at C5-C6. The following disc levels are specifically d iscussed: C2-C3: There is no uncovertebral joint osteoarthritis. There is mild right and severe left facet join t osteoarthritis. There is mild left neural foraminal stenosis. There is no central canal stenosis. C3-C4: There is mild bilateral uncovertebral joint hypertrophy. There is moderate left facet joint os teoarthritis. There is ankylosis of right facet joint with severe hypertrophy. There is mild right ne ural foraminal stenosis. There is mild central canal stenosis. C4-C5: There is mild bilateral uncovertebral joint osteoarthritis. There is severe bilateral facet debo int osteoarthritis. There is mild bilateral neural foraminal stenosis. There is mild central canal st enosis. C5-C6: There is severe bilateral uncovertebral joint osteoarthritis. There is mild bilateral facet debo int osteoarthritis. There is mild bilateral neural foraminal stenosis. There is mild central canal st enosis. C6-C7: There is moderate bilateral uncovertebral joint osteoarthritis. There is moderate right and mi ld left facet joint osteoarthritis. There is no neural foraminal stenosis. There is mild central long l stenosis. C7-T1: There is no uncovertebral joint osteoarthritis. There is severe right and moderate left facet joint osteoarthritis. There is no neural foraminal stenosis. There is no central canal stenosis. IMPRESSION: 1. No fracture. 2. Severe cervical spondylosis. Reviewed, dictated and finalized at location A.
--- NOTE | ~2021-09-22 | CT_ITS ---
EXAMINATION: CT brain wo con DATE: 09/22/2021 20:42 INDICATION: Dizziness. Fall. TECHNIQUE: Computed tomography (CT) of the head was performed without intravenous contrast. The mA wa s adjusted according to patient size. Iterative reconstruction technique was employed. The dose-lengt h product was 605.33 mGy-cm. COMPARISON: None FINDINGS: There is an old infarct in right caudate nucleus. There are scattered areas of low attenuat ion in the cerebral white matter. There is no intracranial hemorrhage, acute infarction, or abnormal intracranial mass lesion. The ventricles are normal in size. There are changes of left-sided scleral banding procedure. There are likely changes of left ocular lens replacement surgery. The paranasal si nuses are clear. The mastoid air cells are normal. IMPRESSION: 1. 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 2. Moderate nonspecific cerebral white matter disease, which likely represents chronic small vessel i schemic disease. Reviewed, dictated and finalized at location A. IMPRESSION: 1. 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 2. Moderate nonspecific cerebral white matter disease, which likely represents chronic small vessel ischemic disease.
--- NOTE | ~2021-09-22 | XR_ITS ---
EXAMINATION: XR shoulder LT min 2V DATE: 09/22/2021 20:32 INDICATION: Left shoulder injury. Fall. TECHNIQUE: 3 views of left shoulder were obtained. COMPARISON: None. FINDINGS: Bone alignment is normal. No fracture. There is severe osteoarthritis of glenohumeral joint and acromioclavicular joint. IMPRESSION: 1. Polyarticular osteoarthritis. Reviewed, dictated and finalized at location A.
--- NOTE | ~2021-09-22 | XR_ITS ---
EXAMINATION: XR forearm LT 2V DATE: 09/22/2021 20:33 INDICATION: Left forearm injury and swelling. TECHNIQUE: 2 views of left forearm were obtained. COMPARISON: None. FINDINGS: Bone alignment is normal. No fracture. Joint spaces are normal. There are enthesophytes at medial and lateral humeral epicondyles. No elbow joint effusion. There is soft tissue swelling of the proximal forearm. IMPRESSION: 1. No fracture. Reviewed, dictated and finalized at location A. IMPRESSION: 1. No fracture.
--- NOTE | ~2021-09-22 | XR_ITS ---
EXAMINATION: XR chest 1V DATE: 09/22/2021 20:33 INDICATION: Fall. Hypertension. TECHNIQUE: A single frontal view of the chest was obtained. COMPARISON: Chest 2 views 08/12/20 FINDINGS: There is no pneumonia, pleural effusion, or pneumothorax. The heart size is normal. IMPRESSION: 1. No acute cardiopulmonary disease. Reviewed, dictated and finalized at location A.
[2021-09-22 20:02] VITALS: PULSE 89; RESP 20; TEMP 36.8; O2SAT 98
[2021-09-22 20:07] VITALS: BP 121/107
[2021-09-22 21:24] LABS: Basophils Percent Auto 0.4 % (0.2-1.2); Eosinophils Absolute Auto 0.1 K/mm3 (0-0.3); Eosinophils Percent Auto 0.5 % (0-4.4); Hematocrit 41.1 % (42.0-52.0); Hemoglobin 14.1 g/dL (14.0-18.0); Immature Granulocyte Absolute 0.04 K/mm3 (0.00-0.031); Immature Granulocyte Percent A 0.4 % (0-0.5); Lymphocytes Absolute Auto 1.13 K/mm3 (0.9-3.2); Lymphocytes Percent Auto 10.6 % (18.3-44.2); Mean Corpuscular HGB Conc 34.3 g/dl (32-36); Mean Corpuscular Hemoglobin 34.6 pg (26-34); Mean Platelet Volume 8.8 fl (7.4-10.4); Monocytes Absolute Auto 1.1 K/mm3 (0.1-0.6); Monocytes Percent Auto 10.1 % (2.6-8.5); Neutrophils Absolute Auto 8.3 K/mm3 (1.3-6.7); Platelet Count Result 137 k/mm3 (150-375); Red Blood Count 4.07 M/mm3 (4.6-6.20); Red Cell Distribution Width 11.6 % (11.5-14.5); White Blood Count 10.6 K/mm3 (4.5-10.0)
[2021-09-22 21:29] LABS: INR 1.2; Prothrombin Time 14.5 Seconds (11.1-14.7)
[2021-09-22 21:30] LABS: Partial Thromboplastin Time 29.1 SECONDS (22.3-36.8)
[2021-09-22 21:30] LABS: Appearance Urine Clear (Clear); Bilirubin Urine Negative (Negative); Blood Urine Negative (Negative); Color Urine Yellow (Yellow); Glucose Urine UA Negative (Negative); Ketones Urine 1+ mg/dL (Negative); Leukocyte Esterase Ur Negative LEU/UL (Negative); Nitrate Urine Negative (Negative); Protein Urine Negative (Negative); Urobilinogen Urine 0.2 mg/dL (<2.0)
[2021-09-22 21:32] VITALS: BP 119/63; PULSE 80; RESP 18; O2SAT 97
[2021-09-22 21:32] LABS: Alanine Aminotransferase 22 U/L (6-50); Albumin Level 4.2 g/dL (3.5-5.1); Alkaline Phosphatase 67 U/L (38-126); Anion Gap 11 mmol/L (8-16); Aspartate Amino Transferase 30 U/L (17-59); Bilirubin,Total 1.5 mg/dL (0.2-1.3); Blood Urea Nitrogen 9 mg/dL (9-20); Calcium 9.1 mg/dL (8.4-10.2); Carbon Dioxide 22 mmol/L (22-30); Chloride 90 mmol/L (98-107); Estimated CRCL calculation 73 ml/min; Estimated Glomerular Filt Rate > 60; Glucose 98 mg/dL (65-110); Sodium 123 mmol/L (137-145)
[2021-09-22 21:38] LABS: Bacteria Urine Trace /hpf; Mucus Urine Rare /lpf; RBC Urine 0-2 /hpf (0-2); Squamous Epithelial Cell Urine Rare /hpf (Few); WBC Urine 0-3 /hpf
[2021-09-22 21:39] LABS: Add Urine Microscopic? YES
--- NOTE | 2021-09-22 22:04 | ECG_ITS ---
Measurements Intervals [place] Rate: 77 P: AR: 0 QRS: 90 QRSD: 162 T: 39 QT: 429 QTc: 487 Interpretive Statements ATRIAL FIBRILLATION RIGHT BUNDLE BRANCH BLOCK [120+ ms QRS DURATION, UPRIGHT V1, 40+ ms S IN I/aVL/V4/V5/V6] ABNORMAL ECG COMPARED TO ECG 08/12/2020 23:11:25 ATRIAL FIBRILLATION NOW PRESENT Electronically Signed On 09-23-2021 9:38:12 CDT by Juan Martinez M.D.
--- NOTE | 2021-09-22 22:08 | ED.FALL ---
HPI - Fall General Chief Complaint: Fall Stated Complaint: FALL, HYPOTENSIVE Source: RN notes reviewed History of Present Illness HPI Narrative: Patient presents emergency department from home via EMS for a fall. 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 Per the family patient also had another fall on 813. At that time he struck his arm and has a large amount of swelling ecchymosis over the left arm he was not evaluated at that time. Patient notes that he has a skin tear over his right elbow today from the fall and states his last tetanus shot was a year and half ago. Per the family the patient's been more weak over the past several days has been having more difficult time getting up and ambulating. The patient denies any chest pain shortness of breath abdominal pain numbness or tingling in extremities or any other symptoms Related Data Home Medications Medication Instructions Recorded Confirmed aspirin 81 mg chewable tablet 81 mg PO DAILY 02/02/19 08/13/20 (Aspirin Childrens) isosorbide mononitrate 30 mg 30 mg PO DAILY 02/02/19 08/13/20 tablet,extended release 24 hr metoprolol tartrate 50 mg tablet 50 mg PO BID 02/02/19 08/13/20 rosuvastatin 40 mg tablet 40 mg PO DAILY 02/02/19 08/13/20 alprazolam 0.25 mg tablet (Xanax) 0.25 mg PO HS PRN Anxiety 08/12/20 08/13/20 Combigan 1 drp ophthalmic (eye) BID 08/13/20 08/13/20 latanoprost 1 drp ophthalmic (eye) DAILY 08/13/20 08/13/20 loratadine 10 mg tablet (Claritin) 10 mg PO DAILY PRN Allergic 08/13/20 08/13/20 Symptoms Allergies Allergy/AdvReac Type Severity Reaction Status Date / Time No Known Allergies Allergy Verified 09/22/21 20:07 Review of Systems Review of Systems: Gen.: Denies fevers or chills Eyes: Denies eye pain or visual change ENT: Denies congestion Respiratory: Denies shortness of breath or cough CV: Denies chest pain or palpitations GI: Denies abdominal pain nausea, emesis \ Musculoskeletal: Reports left arm bruising Neuro reports weakness Skin: See HPI Except as documented, all other systems reviewed and negative [facility] Past Medical History Medical History Coronary artery disease COVID-19 vaccine series completed (~03/2020) Essential hypertension Glaucoma Hyperlipidemia Surgical History Surgical History History of cardiac catheterization (~04/2019) with old prior occlusions noted, not a candidate for stent at that time per patient report History of detached retina repair left eye History of tonsillectomy and adenoidectomy Family History Family History Father Cerebral aneurysm Mother Heart disease Social History Social History Social History: He has been since 9. He and his living Reynaldo caballero. He is retired from [employer]. They have 5 biological children and adopted 2 of their grand children. He usually drinks 3-4 mixed drinks a night. He is independent in activities of daily living and still drives. Smoking packs per day: 1 Smoking cigarettes per day: 20.0 Years smoked: 5 Smoking pack-years: 5.00 Smoking status: Former smoker Tobacco type: cigarettes Second hand tobacco smoke exposure: No Alcohol intake: current Drinks per week: 20 Substance use: never Gender identity (if verbalized by the patient): Male Sexual Orientation (if Verbalized by the Patient): Straight or Heterosexual Spiritual care concerns: No Exam Narrative: APPEARANCE: No acute distress, nontoxic, restin
[2021-09-22 22:20] LABS: SARS-CoV-2 RNA PCR Negative
[2021-09-22 23:30] VITALS: BP 122/80; PULSE 82; RESP 20; O2SAT 99
[2021-09-23] MEDS: SODIUM CHLORIDE 0.9% IV 1,000 ML 999 ML IV CONT (00:10)
[2021-09-23 00:38] VITALS: BMI 29.7
--- NOTE | 2021-09-23 00:40 | PC.NURSE ---
NS infusing during time of transfer and continued on floor.
--- NOTE | 2021-09-23 01:00 | ADMGEN ---
This patient, Edison Burr, was admitted to [facility] Surg Room 315-02 at 0030. Patient/family oriented to hospital policies and general routines including ID bracelet, bed and alarms, visiting hours, pain management, procedures, bathroom and other care routines, personal items, smoking policy, room service/diet, and visiting hours. Information on how to activate the Rapid Response Team has been discussed. Patient/Family are encouraged to report perceived risks to care and to ask questions if they do not understand what they are told or what they should do.
--- NOTE | 2021-09-23 03:28 | PM.IMHP ---
H&P: HPI History of Present Illness Date/Time: 09/23/21 03:28 Chief Complaint: Fall Narrative: Greater than 30 minute spent reviewing chart, evaluating, treating, counseling patient. Anticipate greater than 48 hour admission, will admit under inpatient. 86-year-old male past medical history of CAD, HTN/HLD. Presents after fall. Patient had a fall 09/18 and another fall 09/22, both which he claims he lost his balance. Patient denies losing consciousness, significant weakness, dizziness/lightheadedness He does admit to trouble with keeping his balance lately, states he does not bend down much as well due to concern of falling and inability to bend. Patient reports he recently saw his PCP and his sodium was 131 at that time. Patient admits to taking Lasix daily. Patient reports he was up to 2 pack per day smoker for about 7 years, quit in his mid 20s. Has never had a lung cancer screening. States he has lost 15 lb over a year. Denies poor p.o. intake. Denies night sweats. In ED, vitals stable. WBC 10.6, patient is afebrile. MCV noted to be 101. Hemoglobin 14.1, back in August 2020 hemoglobin 10.9. Sodium noted to be 123. UA negative. CT head negative for acute intracranial pathology. C-spine negative for fracture, however showing severe cervical spondylosis. Right shoulder and forearm x-ray negative for fracture. EKG showing atrial fibrillation with right bundle branch block, similar to EKG 08/2020. Review of Systems Review of Systems: Ten point ROS reviewed, negative unless otherwise specified per [facility] Past Medical History Medical History Coronary artery disease COVID-19 vaccine series completed (~03/2020) Essential hypertension Glaucoma Hyperlipidemia Surgical History Surgical History History of cardiac catheterization (~04/2019) with old prior occlusions noted, not a candidate for stent at that time per patient report History of detached retina repair left eye History of tonsillectomy and adenoidectomy Family History Family History Father Cerebral aneurysm Mother Heart disease Social History Social History Social History: He has been since 1957. He and his living Reynaldo caballero. He is retired from [employer]. They have 5 biological children and adopted 2 of their grand children. He usually drinks 3-4 mixed drinks a night. He is independent in activities of daily living and still drives. Smoking packs per day: 1 Smoking cigarettes per day: 20.0 Years smoked: 5 Smoking pack-years: 5.00 Smoking status: Former smoker Tobacco type: cigarettes Second hand tobacco smoke exposure: No Alcohol intake: current Drinks per week: 20 Substance use: never Gender identity (if verbalized by the patient): Male Sexual Orientation (if Verbalized by the Patient): Straight or Heterosexual Spiritual care concerns: No Meds Home Medications and Allergies Home Medications Medication Instructions Recorded Confirmed Type aspirin 81 mg chewable tablet 81 mg PO DAILY 02/02/19 08/13/20 History (Aspirin Childrens) isosorbide mononitrate 30 mg 30 mg PO DAILY 02/02/19 08/13/20 History tablet,extended release 24 hr metoprolol tartrate 50 mg tablet 50 mg PO BID 02/02/19 08/13/20 History rosuvastatin 40 mg tablet 40 mg PO DAILY 02/02/19 08/13/20 History alprazolam 0.25 mg tablet (Xanax) 0.25 mg PO HS PRN Anxiety 08/12/20 08/13/20 History Combigan 1 drp ophthalmic (eye) BID 08/13/20 08/13/20 History latanoprost 1 drp ophthalmic (eye) DAILY 08/13/20 08/13/20 History loratadine 10 mg tablet (Claritin) 10 mg PO DAILY PRN Allergic 08/13/20 08/13/20 History Symptoms Entresto 09/22/21 History atorvastatin 09/22/21 History escitalo
[2021-09-23 04:00] VITALS: BP 144/89; PULSE 85; RESP 20; TEMP 36.6; O2SAT 98
--- NOTE | 2021-09-23 05:57 | PC.NURSE ---
Tried calling [facility] , Kimmy at [phone] to go over his medication, but I could not get ahold of her, will pass this along to day shift RN, was notified that med rec is not completed
[2021-09-23 06:55] LABS: Basophils Percent Auto 0.4 % (0.2-1.2); Eosinophils Percent Auto 0.4 % (0-4.4); Hematocrit 41.4 % (42.0-52.0); Immature Granulocyte Absolute 0.03 K/mm3 (0.00-0.031); Immature Granulocyte Percent A 0.4 % (0-0.5); Lymphocytes Absolute Auto 0.97 K/mm3 (0.9-3.2); Lymphocytes Percent Auto 11.4 % (18.3-44.2); Mean Corpuscular HGB Conc 33.8 g/dl (32-36); Mean Corpuscular Hemoglobin 34.4 pg (26-34); Mean Corpuscular Volume 101.7 fl (80-100); Mean Platelet Volume 8.7 fl (7.4-10.4); Monocytes Percent Auto 11.5 % (2.6-8.5); Neutrophils Absolute Auto 6.5 K/mm3 (1.3-6.7); Neutrophils Percent Auto 75.9 % (45.5-73.1); Platelet Count Result 131 k/mm3 (150-375); Red Blood Count 4.07 M/mm3 (4.6-6.20); Red Cell Distribution Width 11.6 % (11.5-14.5); White Blood Count 8.5 K/mm3 (4.5-10.0)
[2021-09-23 07:12] LABS: Alanine Aminotransferase 20 U/L (6-50); Albumin Level 3.9 g/dL (3.5-5.1); Alkaline Phosphatase 68 U/L (38-126); Anion Gap 7 mmol/L (8-16); Aspartate Amino Transferase 25 U/L (17-59); Bilirubin,Total 1.5 mg/dL (0.2-1.3); Blood Urea Nitrogen 8 mg/dL (9-20); Calcium 8.5 mg/dL (8.4-10.2); Carbon Dioxide 25 mmol/L (22-30); Chloride 97 mmol/L (98-107); Estimated CRCL calculation 73 ml/min; Estimated Glomerular Filt Rate > 60; Glucose 97 mg/dL (65-110); Potassium 3.8 mmol/L (3.4-5.0); Sodium 129 mmol/L (137-145)
[2021-09-23 08:00] VITALS: BP 132/80; PULSE 82; RESP 16; TEMP 36.8; O2SAT 92
[2021-09-23 09:28] VITALS: O2SAT 93
[2021-09-23] MEDS: ENOXAPARIN 40 MG/0.4 ML SYRINGE SUB-Q (09:58)
[2021-09-23 12:00] VITALS: BP 127/84; PULSE 77; RESP 16; TEMP 37; O2SAT 91
--- NOTE | 2021-09-23 15:31 | PM.IMPN ---
Progress Note: A&P Assessment and Plan (1) Fall: Code(s): W19.XXXA - Unspecified fall, initial encounter Status: Acute Assessment and Plan: PT/OT consult (2) Hyponatremia: Code(s): E87.1 - Hypo-osmolality and hyponatremia Status: Acute Assessment and Plan: Patient had thorough workup back in August 2020. Cosyntropin stem test normal, TSH was normal. Hydrochlorothiazide was discontinued at that time, suspected secondary to dehydration and diarrhea. Patient does not have any of these symptoms at this time. Will consult Nephrology due to recurrence. Urine osmolarity and urine sodium, serum osmolarity ordered. Low suspicion lung cancer given remote smoking history. Will start NS IVF 125 cc/HR (3) Atrial fibrillation: Code(s): I48.91 - Unspecified atrial fibrillation Status: Acute Assessment and Plan: Patient is not aware of atrial fibrillation history. Atrial fibrillation with right bundle branch noted on previous EKG 08/2020. Patient reports he had a heart catheterization in the past that noted old occlusions. Patient is on Lopressor per med rec, however he is not on anticoagulation. Follows with Dr. Mai of [facility] in [place], will obtain records Additional Plan 09/23/2021 interval history: 86-year-old male with recurrent fall and unsteady on gait, CT scan of the head is negative for any intracranial pathology as well as C-spine, patient does have severe cervical spondylitis, etiology uncertain most likely debility due to age and inactivity,patient remains clinically stable will have a PT OT to evaluate the patient, patient will benefit going to SNF for rehab. Subjective Date/time seen: 09/23/21 15:31 [id number] male past medical history of CAD, HTN/HLD.? Presents after fall.? Patient had a fall 09/18 and another fall 09/22, both which he claims he lost his balance.? Patient denies losing consciousness, significant weakness, dizziness/lightheadedness? He does admit to trouble with keeping his balance lately, states he does not bend down much as well due to concern of falling and inability to bend.? Patient reports he recently saw his PCP and his sodium was 131 at that time.? Patient admits to taking Lasix daily.? Patient reports he was up to 2 pack per day smoker for about 7 years, quit in his mid 20s.? Has never had a lung cancer screening.? States he has lost 15 lb over a year.? Denies poor p.o. intake.? Denies night sweats. In ED, vitals stable.? WBC 10.6, patient is afebrile.? MCV noted to be 101.? Hemoglobin 14.1, back in August 2020 hemoglobin 10.9.? Sodium noted to be 123.? UA negative.? CT head negative for acute intracranial pathology.? C-spine negative for fracture, however showing severe cervical spondylosis.? Right shoulder and forearm x-ray negative for fracture.? EKG showing atrial fibrillation with right bundle branch block, similar to EKG 08/2020. 09/23/2021 interval history: 86-year-old male with recurrent fall and unsteady on gait, CT scan of the head is negative for any intracranial pathology as well as C-spine, patient does have severe cervical spondylitis, etiology uncertain most likely debility due to age and inactivity,patient remains clinically stable will have a PT OT to evaluate the patient, patient will benefit going to SNF for rehab. Review of Systems Review of Systems: Ten point ROS reviewed, negative unless otherwise specified per HPI Exam Narrative: Patient is comfortable, NAD HEENT: eyes are clear and none icteric LUNGS: normal respiratory effort ABD: not distended Lower extremities: no edema SKIN: nonjaundiced Neuro: grossly intact. Objective Data Vital Signs Vital Signs: Vital Signs - 24 hr 09/22/21 20:02 09/22/21 20:07 09/22/21 21:32 Temperature 98.3 F Pulse Rate 89 80 Respiratory Rate 20 18 Blood Pressure 121/107 H 119/63 Pulse Oximetry 98 97 Oxygen Delivery Room Air 09/22/21 23:30 0
[2021-09-23 16:00] VITALS: BP 143/78; PULSE 77; RESP 16; TEMP 37.1; O2SAT 90
--- NOTE | 2021-09-23 18:22 | PM.CNNEP ---
Assessment and Plan Assessment and plan (1) Hyponatremia: Code(s): E87.1 - Hypo-osmolality and hyponatremia Status: Acute Assessment and Plan: The patient has hyponatremia. Initially, a year ago, his sodium was 120 and then by discharge it was up to 131. on admission last night his sodium was only 123. This morning it navin to 129. This is a delta of 6. Need to recheck it now to see if it his increased anymore and see if we need to bring it back down. We do not want it to change more than 8 in 24hours. The patient does have chronic hyponatremia. This is being going on for at least a year if not longer. Evaluation done then showed the following: normal TSH and cortisol. Normal chest x-ray unremarkable CT brain the patient has no active cancer he is up-to-date with cancer screening. He was on hydrochlorothiazide at that time but is no longer on this. This sodium level was 133 a week ago, And 135 6 months ago. he has had edema and was on diuretics but the dose was much higher before this. On his current dose of Lasix 1 a day his sodium was 133 8 days ago so I doubt if the Lasix alone did this. He is on escitalopram which can lower sodium as well. His son is out of town and perhaps he is drinking a little more fluid since he is not monitor this closely. I will talk more with the patient about his fluid intake. At this point will put him on fluid restriction of 1200cc an hour. I agree with holding off on the Lasix and the escitalopram for now. He does not look necessarily volume depleted so I agree with not giving him fluids. Will check urine electrolytes. (2) Essential hypertension: Code(s): I10 - Essential (primary) hypertension Status: Acute Assessment and Plan: His blood pressure is doing pretty well with a systolic ranging between 119 and 144. Most the numbers are below 132. (3) Fall: Code(s): W19.XXXA - Unspecified fall, initial encounter Status: Acute Assessment and Plan: The patient is getting physical therapy. (4) Atrial fibrillation: Code(s): I48.91 - Unspecified atrial fibrillation Status: Acute Assessment and Plan: His rate is under good control. History of Present Illness Reason for Consult Consult date: 09/23/21 Chief Complaint Chief complaint: hyponatremia,weakness,lft arm contusion,rt arm abr History of Present Illness Narrative: Edison is a very pleasant 86-year-old gentleman who has multiple medical problems including chronic hyponatremia, depression, hypertension, congestive heart failure, coronary disease, history of glaucoma and hyperlipidemia. The patient was in the hospital about a year ago with hyponatremia. At that time he had test for thyroid and cortisol, imaging of the brain and lungs. He was felt to have hyponatremia because of hydrochlorothiazide and possibly dehydration. He gradually improved. He has been followed as an outpatient since then. I just saw him in the office on Monday and his sodium level had been 133 so he was continued on the same management. He was instructed to drink if he is thirsty not if she he is not. Over the course of the last few months, he has developed swelling. He has been on Lasix 20mg Every other day. When the swelling developed, he was instructed increase the Lasix to daily by his primary care physician. This swelling continued to worsen and so he was taking 2 a day for a while but then when the swelling got better he went back down to 1 a day and is still on that now. This decrease happened about 1 month ago. The patient falls fairly frequently. He says that this happens because he just loses his concentration and slips and falls. He has never hit his head. He has never fainted or passed out. Usually his son is with him because he lives with his son and the son is able to get him up after he falls. This time however his son w
[2021-09-23 19:54] LABS: Sodium 128 mmol/L (137-145)
[2021-09-23 20:00] VITALS: BP 131/65; PULSE 77; RESP 18; TEMP 36.2; O2SAT 99
[2021-09-23 20:31] LABS: Sodium Urine Random 60 meq/L
[2021-09-23] MEDS: ACETAMINOPHEN 500 MG TABLET 1000 MG PO (21:35)
[2021-09-23] MEDS: diphenhydrAMINE HCl CAP 25 MG CAPSULE 50 MG PO (21:35)
[2021-09-23] MEDS: FLUTICASONE PROPIONATE 0.05% NA SPR 16 GM BTL (*BKC) 2 SPRAY NASAL (21:37)
[2021-09-23 23:41] LABS: Creatinine Urine 142.3 mg/dL; Total Protein Urine Random 7 mg/dL; Ur Ttl Prot Creatinine Ratio 0.05 mg/mg (0-0.20); Urea Random Urine 783 MG/DL
[2021-09-24] VITALS (8 sets, daily range): BP systolic 96–170; BP diastolic 57–100; PULSE 64–92; RESP 17–20; TEMP 36.1–36.7; O2SAT 94–100
[2021-09-24 00:19] LABS: Sodium Urine Random 61 meq/L
[2021-09-24 07:01] LABS: Hemoglobin 13.6 g/dL (14.0-18.0); Immature Platelet Fraction Pct 1.5 % (0.9-11.2); Mean Corpuscular Hemoglobin 35.2 pg (26-34); Mean Corpuscular Volume 103.6 fl (80-100); Mean Platelet Volume 8.6 fl (7.4-10.4); Platelet Count Result 140 k/mm3 (150-375); Red Blood Count 3.86 M/mm3 (4.6-6.20); Red Cell Distribution Width 11.9 % (11.5-14.5); White Blood Count 5.9 K/mm3 (4.5-10.0)
[2021-09-24 07:17] LABS: Albumin Level 3.7 g/dL (3.5-5.1); Anion Gap 7 mmol/L (8-16); Blood Urea Nitrogen 7 mg/dL (9-20); Calcium 8.7 mg/dL (8.4-10.2); Carbon Dioxide 28 mmol/L (22-30); Chloride 95 mmol/L (98-107); Estimated CRCL calculation 73 ml/min; Estimated Glomerular Filt Rate > 60; Glucose 102 mg/dL (65-110); Magnesium 1.8 mg/dL (1.6-2.3); Phosphorus 3.5 mg/dL (2.5-4.5); Potassium 3.4 mmol/L (3.4-5.0); Sodium 130 mmol/L (137-145)
[2021-09-24] MEDS: MAGNESIUM OXIDE 400 MG TABLET PO (08:57)
[2021-09-24] MEDS: ATORVASTATIN 20 MG TABLET PO (09:00)
[2021-09-24] MEDS: ASPIRIN 81 MG ENTERIC TABLET PO (09:00)
[2021-09-24] MEDS: LORATADINE 10 MG TABLET PO (09:00)
[2021-09-24] MEDS: ISOSORBIDE MONONITRATE 30 MG TAB.ER.24H PO (09:00)
[2021-09-24] MEDS: SACUBITRIL/VALSARTAN 24-26 MG TABLET 1 TAB PO ×2 (09:00→20:47)
[2021-09-24] MEDS: METOPROLOL TARTRATE 50 MG TAB 100 MG PO (09:04)
[2021-09-24] MEDS: FUROSEMIDE 20 MG TABLET PO (09:56)
[2021-09-24] MEDS: ENOXAPARIN 40 MG/0.4 ML SYRINGE SUB-Q (09:56)
[2021-09-24] MEDS: POTASSIUM CHLORIDE 20 MEQ TABLET 40 MEQ PO (09:56)
[2021-09-24] MEDS: ESCITALOPRAM OXALATE 10 MG TABLET PO (09:56)
--- NOTE | 2021-09-24 10:39 | PM.PNNEP ---
Progress Note: A&P Assessment and Plan (1) Hyponatremia: Code(s): E87.1 - Hypo-osmolality and hyponatremia Status: Acute Assessment and Plan: The patient has hyponatremia. Initially, a year ago, his sodium was 120 and then by discharge it was up to 131. on admission last night his sodium was only 123. This morning it navin to 129. Yesterday afternoon was down to 128 and now is 130. So he is now at baseline at a safe rate of improvement. normal TSH and cortisol. Normal chest x-ray unremarkable CT brain the patient has no active cancer he is up-to-date with cancer screening. He was on hydrochlorothiazide at that time but is no longer on this. This sodium level was 133 a week ago, And 135 6 months ago. Consider stopping the as could tell up vlad for continuing it and continuing the fluid restriction. I will talk more with the patient. (2) Essential hypertension: Code(s): I10 - Essential (primary) hypertension Status: Acute Assessment and Plan: His blood pressure is up and down with a systolic ranging from 127-170. He is on short-acting metoprolol once a day. Will change that to metoprolol succinate and see if this smooth Moira's the curve. (3) Fall: Code(s): W19.XXXA - Unspecified fall, initial encounter Status: Acute Assessment and Plan: The patient is getting physical therapy. (4) Atrial fibrillation: Code(s): I48.91 - Unspecified atrial fibrillation Status: Acute Assessment and Plan: His rate is under good control. Subjective Date/time seen: 09/24/21 10:39 Interval history: Edison is feeling a little better today. Physical therapy working with him. Review of Systems Cardiovascular: Cardiovascular: Reports no additional cardiovascular complaints Respiratory: Respiratory: Reports no additional respiratory complaints Gastrointestinal: Gastrointestinal: Reports no additional gastrointestinal complaints Genitourinary: Genitourinary: Reports no additional male genitourinary complaints Exam Narrative: WDWN in NAD skin no rash head ncat lungs clear cor reg no rub abd BS+ nontender and soft ext no edema. Objective Data Vital Signs Vital Signs: Vital Signs - 24 hr 09/23/21 12:00 09/23/21 14:59 09/23/21 16:00 Temperature 37.0 C 37.1 C Pulse Rate 77 77 Respiratory Rate 16 16 Blood Pressure 127/84 143/78 H Pulse Oximetry 91 90 Oxygen Delivery Room Air 09/23/21 20:00 09/23/21 20:00 09/24/21 00:00 Temperature 36.2 C L 36.4 C Pulse Rate 77 68 Respiratory Rate 18 19 Blood Pressure 131/65 150/74 H Pulse Oximetry 99 95 Oxygen Delivery Room Air 09/24/21 04:00 09/24/21 08:00 09/24/21 09:04 Temperature 36.3 C L 36.3 C L Pulse Rate 82 83 92 Respiratory Rate 20 18 Blood Pressure 170/100 H 144/96 H Pulse Oximetry 94 100 Oxygen Delivery Intake/Output Intake/Output: Intake & Output 09/21/21 09/22/21 09/23/21 09/24/21 23:59 23:59 23:59 23:59 Intake Total 1770 620 Output Total 900 Balance 870 620 Meds/Results Medications: Active Medications Generic Name Dose Route Start Last Admin Trade Name Freq PRN Reason Stop Dose Admin Acetaminophen 1,000 mg 09/23/21 21:00 09/23/21 21:35 Acetaminophen 500 Mg Tablet PO 1,000 mg HS ROZ Administration Alprazolam 0.25 mg 09/23/21 20:13 Alprazolam (*Crx) 0.25 Mg Tablet PO HS PRN Anxiety Aspirin 81 mg 09/24/21 09:00 09/24/21 09:00 Aspirin 81 Mg Enteric Tablet PO 81 mg DAILY ROZ Administration Atorvastatin Calcium 20 mg 09/24/21 09:00 09/24/21 09:00 Atorvastatin 20 Mg Tablet PO 20 mg DAILY ROZ Administration Diphenhydramine HCl 50 mg 09/23/21 21:00 09/23/21 21:35 Diphenhydramine Hcl Cap 25 Mg Capsule PO 10/23/21 20:59 50 mg HS ROZ Administration Enoxaparin Sodium 40 mg 09/23/21 09:00 09/24/21 09:56 Enoxaparin 40 Mg/0.4 Ml Syringe SUB-Q 40 mg
--- NOTE | 2021-09-24 12:21 | PM.IMPN ---
Progress Note: A&P Assessment and Plan (1) Fall: Code(s): W19.XXXA - Unspecified fall, initial encounter Status: Acute Assessment and Plan: PT/OT consult (2) Hyponatremia: Code(s): E87.1 - Hypo-osmolality and hyponatremia Status: Acute Assessment and Plan: Patient had thorough workup back in August 2020. Cosyntropin stem test normal, TSH was normal. Hydrochlorothiazide was discontinued at that time, suspected secondary to dehydration and diarrhea. Patient does not have any of these symptoms at this time. Will consult Nephrology due to recurrence. Urine osmolarity and urine sodium, serum osmolarity ordered. Low suspicion lung cancer given remote smoking history. Will start NS IVF 125 cc/HR (3) Atrial fibrillation: Code(s): I48.91 - Unspecified atrial fibrillation Status: Acute Assessment and Plan: Patient is not aware of atrial fibrillation history. Atrial fibrillation with right bundle branch noted on previous EKG 08/2020. Patient reports he had a heart catheterization in the past that noted old occlusions. Patient is on Lopressor per med rec, however he is not on anticoagulation. Follows with Dr. Mai of [facility] in [place], will obtain records Additional Plan 09/23/2021 interval history: 86-year-old male with recurrent fall and unsteady on gait, CT scan of the head is negative for any intracranial pathology as well as C-spine, patient does have severe cervical spondylitis, etiology uncertain most likely debility due to age and inactivity,patient remains clinically stable will have a PT OT to evaluate the patient, patient will benefit going to SNF for rehab. 09/24/2021 interval history: 86-year-old male with recurrent fall and unsteady on gait, CT scan of the head is negative for any intracranial pathology as well as C-spine, patient does have severe cervical spondylitis, etiology uncertain most likely debility due to age and inactivity,patient with hyponatremia, presented with sodium of 123 currently 130 which his baseline seen by subscription crew leader, patient remains clinically stable will have a PT OT to evaluate the patient, patient will benefit going to SNF for rehab. Subjective Date/time seen: 09/24/21 12:21 09/24/2021 interval history: 86-year-old male with recurrent fall and unsteady on gait, CT scan of the head is negative for any intracranial pathology as well as C-spine, patient does have severe cervical spondylitis, etiology uncertain most likely debility due to age and inactivity,patient with hyponatremia, presented with sodium of 123 currently 130 which his baseline seen by subscription crew leader, patient remains clinically stable will have a PT OT to evaluate the patient, patient will benefit going to SNF for rehab. Review of Systems Cardiovascular: Cardiovascular: Reports no additional cardiovascular complaints Respiratory: Respiratory: Reports no additional respiratory complaints Gastrointestinal: Gastrointestinal: Reports no additional gastrointestinal complaints Genitourinary: Genitourinary: Reports no additional male genitourinary complaints Exam Narrative: Patient is comfortable, NAD HEENT: eyes are clear and none icteric LUNGS: normal respiratory effort ABD: not distended Lower extremities: no edema SKIN: nonjaundiced Neuro: grossly intact. Objective Data Vital Signs Vital Signs: Vital Signs - 24 hr 09/23/21 14:59 09/23/21 16:00 09/23/21 20:00 Temperature 98.7 F Pulse Rate 77 Respiratory Rate 16 Blood Pressure 143/78 H Pulse Oximetry 90 Oxygen Delivery Room Air Room Air 09/23/21 20:00 09/24/21 00:00 09/24/21 04:00 Temperature 97.2 F L 97.6 F 97.3 F L Pulse Rate 77 68 82 Respiratory Rate 18 19 20 Blood Pressure 131/65 150/74 H 170/100 H Pulse Oximetry 99 95 94 Oxygen Delivery 09/24/21 08:00 09/24/21 09:04 Temperature 97.4 F L Pulse Rate 83 92 Respiratory Rate
[2021-09-24] MEDS: LATANOPROST 0.005% OP SOLN 2.5 ML BTL 1 DROP LEFT EYE (20:46)
[2021-09-24] MEDS: ACETAMINOPHEN 500 MG TABLET 1000 MG PO (20:47)
[2021-09-24] MEDS: diphenhydrAMINE HCl CAP 25 MG CAPSULE 50 MG PO (20:47)
[2021-09-25] VITALS (7 sets, daily range): BP systolic 118–149; BP diastolic 68–90; PULSE 73–94; RESP 16–20; TEMP 35.7–36.9; O2SAT 96–100
[2021-09-25 06:11] LABS: Hematocrit 39.8 % (42.0-52.0); Hemoglobin 13.3 g/dL (14.0-18.0); Mean Corpuscular HGB Conc 33.4 g/dl (32-36); Mean Corpuscular Hemoglobin 34.8 pg (26-34); Mean Corpuscular Volume 104.2 fl (80-100); Mean Platelet Volume 8.8 fl (7.4-10.4); Platelet Count Result 123 k/mm3 (150-375); Red Blood Count 3.82 M/mm3 (4.6-6.20); Red Cell Distribution Width 12.1 % (11.5-14.5); White Blood Count 6.8 K/mm3 (4.5-10.0)
[2021-09-25 06:21] LABS: Albumin Level 3.7 g/dL (3.5-5.1); Anion Gap 9 mmol/L (8-16); Blood Urea Nitrogen 8 mg/dL (9-20); Calcium 8.9 mg/dL (8.4-10.2); Carbon Dioxide 25 mmol/L (22-30); Chloride 93 mmol/L (98-107); Estimated CRCL calculation 73 ml/min; Estimated Glomerular Filt Rate > 60; Glucose 109 mg/dL (65-110); Magnesium 1.9 mg/dL (1.6-2.3); Phosphorus 3.3 mg/dL (2.5-4.5); Potassium 3.8 mmol/L (3.4-5.0); Sodium 127 mmol/L (137-145)
[2021-09-25] MEDS: METOPROLOL SUCCINATE EXT REL 100 MG TABCR PO (08:20)
[2021-09-25] MEDS: ENOXAPARIN 40 MG/0.4 ML SYRINGE SUB-Q (08:20)
[2021-09-25] MEDS: MAGNESIUM OXIDE 400 MG TABLET PO (08:20)
[2021-09-25] MEDS: ASPIRIN 81 MG ENTERIC TABLET PO (08:20)
[2021-09-25] MEDS: SACUBITRIL/VALSARTAN 24-26 MG TABLET 1 TAB PO ×2 (08:20→20:27)
[2021-09-25] MEDS: FUROSEMIDE 20 MG TABLET PO (08:20)
[2021-09-25] MEDS: ISOSORBIDE MONONITRATE 30 MG TAB.ER.24H PO (08:20)
--- NOTE | 2021-09-25 09:27 | PM.PNNEP ---
Progress Note: A&P Assessment and Plan (1) Hyponatremia: Code(s): E87.1 - Hypo-osmolality and hyponatremia Status: Acute Assessment and Plan: The patient has hyponatremia. Initially, a year ago, his sodium was 120 and then by discharge it was up to 131. on admission last night his sodium was only 123. This morning it navin to 129. Yesterday afternoon was down to 128 and now is 130. So he is now at baseline at a safe rate of improvement. normal TSH and cortisol. Normal chest x-ray unremarkable CT brain the patient has no active cancer he is up-to-date with cancer screening. He was on hydrochlorothiazide at that time but is no longer on this. he is on escitalopram. Will try stopping this. If there is an issue with his mood we can try an older antidepressant such as nortriptyline. He is on Lasix twice a day. He has no swelling. Will change this to once a day. Will add a salt tablet take along with the Lasix. Today the sodium is 127. This is a little bit lower. Will stop the escitalopram and change the Lasix to once a day and add sodium chloride to take with the Lasix. (2) Essential hypertension: Code(s): I10 - Essential (primary) hypertension Status: Acute Assessment and Plan: Blood pressures to be have smoothened out with the change to long-acting metoprolol. (3) Fall: Code(s): W19.XXXA - Unspecified fall, initial encounter Status: Acute Assessment and Plan: The patient is getting physical therapy. (4) Atrial fibrillation: Code(s): I48.91 - Unspecified atrial fibrillation Status: Acute Assessment and Plan: His rate is under good control. Subjective Date/time seen: 09/25/21 09:27 Interval history: Edison is feeling a little better today. He is getting his morning medicines. I asked him about his citalopram. He says he has been on this for a long time and does not feel depressed. It has a very low dose so I will discontinue this. This might help the sodium. Exam Narrative: WDWN in NAD skin no rash or subcu nodules head ncat lungs clear bilaterally cor reg no rub or gallop abd BS+ nontender and soft ext no edema. Objective Data Vital Signs Vital Signs: Vital Signs - 24 hr 09/24/21 12:00 09/24/21 15:54 09/24/21 20:00 Temperature 36.1 C L 36.2 C L 36.7 C Pulse Rate 81 82 64 Respiratory Rate 20 20 18 Blood Pressure 96/57 L 130/81 142/85 H Pulse Oximetry 95 100 98 09/24/21 23:42 09/25/21 04:00 09/25/21 07:56 Temperature 36.7 C 36.9 C 35.7 C L Pulse Rate 80 83 94 Respiratory Rate 17 18 20 Blood Pressure 146/83 H 149/90 H 141/68 H Pulse Oximetry 99 99 96 09/25/21 08:20 Temperature Pulse Rate 80 Respiratory Rate Blood Pressure Pulse Oximetry Intake/Output Intake/Output: Intake & Output 09/22/21 09/23/21 09/24/21 09/25/21 23:59 23:59 23:59 23:59 Intake Total 1770 1664 120 Output Total 900 500 400 Balance 870 1164 -280 Meds/Results Medications: Active Medications Generic Name Dose Route Start Last Admin Trade Name Freq PRN Reason Stop Dose Admin Acetaminophen 1,000 mg 09/23/21 21:00 09/24/21 20:47 Acetaminophen 500 Mg Tablet PO 1,000 mg HS ROZ Administration Alprazolam 0.25 mg 09/23/21 20:13 Alprazolam (*Crx) 0.25 Mg Tablet PO HS PRN Anxiety Aspirin 81 mg 09/24/21 09:00 09/25/21 08:20 Aspirin 81 Mg Enteric Tablet PO 81 mg DAILY ROZ Administration Atorvastatin Calcium 20 mg 09/25/21 21:00 Atorvastatin 20 Mg Tablet PO HS ROZ Diphenhydramine HCl 50 mg 09/23/21 21:00 09/24/21 20:47 Diphenhydramine Hcl Cap 25 Mg Capsule PO 10/23/21 20:59 50 mg HS ROZ Administration Enoxaparin Sodium 40 mg 09/23/21 09:00 09/25/21 08:20 Enoxaparin 40 Mg/0.4 Ml Syringe SUB-Q 40 mg DAILY ROZ Administration Escitalopram Oxalate 10 mg 09/24/21 09:00 09/25/21 08:24 Escitalopram Oxalate 10 Mg Tablet P
[2021-09-25] MEDS: SODIUM CHLORIDE 1 GM TABLET PO (10:32)
--- NOTE | 2021-09-25 10:55 | PM.IMPN ---
Progress Note: A&P Assessment and Plan (1) Fall: Code(s): W19.XXXA - Unspecified fall, initial encounter Status: Acute Assessment and Plan: PT/OT consult (2) Hyponatremia: Code(s): E87.1 - Hypo-osmolality and hyponatremia Status: Acute Assessment and Plan: Patient had thorough workup back in August 2020. Cosyntropin stem test normal, TSH was normal. Hydrochlorothiazide was discontinued at that time, suspected secondary to dehydration and diarrhea. Patient does not have any of these symptoms at this time. Will consult Nephrology due to recurrence. Urine osmolarity and urine sodium, serum osmolarity ordered. Low suspicion lung cancer given remote smoking history. Will start NS IVF 125 cc/HR (3) Atrial fibrillation: Code(s): I48.91 - Unspecified atrial fibrillation Status: Acute Assessment and Plan: Patient is not aware of atrial fibrillation history. Atrial fibrillation with right bundle branch noted on previous EKG 08/2020. Patient reports he had a heart catheterization in the past that noted old occlusions. Patient is on Lopressor per med rec, however he is not on anticoagulation. Follows with Dr. 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 Review of Systems Cardiovascular: Cardiovascular: Reports no additional cardiovascular complaints Respiratory: Respiratory: Reports no additional respiratory complaints Gastrointestinal: Gastrointestinal: Reports no additional gastrointestinal complaints Genitourinary: Genitourinary: Reports no additional male genitourinary complaints Exam Narrative:
--- NOTE | 2021-09-25 13:14 | PCOTNOTE ---
Attempted to see pt for occupational therapy tx this PM. Pt refused to participate in therapeutic activities and/or ue exercises. Pt states he just got back into bed and is too tired from physical therapy. Pt was educated on the purpose/benefits of continued therapy for independence however, pt still declined. Will continue per poc duration/frequency tomorrow.
[2021-09-25] MEDS: ATORVASTATIN 20 MG TABLET PO (20:27)
[2021-09-25] MEDS: LATANOPROST 0.005% OP SOLN 2.5 ML BTL 1 DROP LEFT EYE (20:27)
[2021-09-25] MEDS: diphenhydrAMINE HCl CAP 25 MG CAPSULE 50 MG PO (20:27)
[2021-09-25] MEDS: ACETAMINOPHEN 500 MG TABLET 1000 MG PO (20:28)
[2021-09-25] MEDS: FLUTICASONE PROPIONATE 0.05% NA SPR 16 GM BTL (*BKC) 2 SPRAY NASAL (21:59)
[2021-09-25] MEDS: ALPRAZolam (*CRX) 0.25 MG TABLET PO (22:01)
[2021-09-26 02:58] VITALS: BP 102/75; PULSE 89; RESP 17; TEMP 36.2; O2SAT 96
[2021-09-26 06:05] LABS: Hematocrit 37.4 % (42.0-52.0); Hemoglobin 12.5 g/dL (14.0-18.0); Mean Corpuscular HGB Conc 33.4 g/dl (32-36); Mean Corpuscular Hemoglobin 34.5 pg (26-34); Mean Corpuscular Volume 103.3 fl (80-100); Mean Platelet Volume 8.7 fl (7.4-10.4); Platelet Count Result 125 k/mm3 (150-375); Red Blood Count 3.62 M/mm3 (4.6-6.20); Red Cell Distribution Width 11.9 % (11.5-14.5); White Blood Count 6.7 K/mm3 (4.5-10.0)
[2021-09-26 06:28] LABS: Anion Gap 7 mmol/L (8-16); Blood Urea Nitrogen 9 mg/dL (9-20); Calcium 8.7 mg/dL (8.4-10.2); Carbon Dioxide 25 mmol/L (22-30); Chloride 95 mmol/L (98-107); Estimated CRCL calculation 73 ml/min; Estimated Glomerular Filt Rate > 60; Glucose 98 mg/dL (65-110); Magnesium 1.9 mg/dL (1.6-2.3); Phosphorus 3.6 mg/dL (2.5-4.5); Potassium 3.7 mmol/L (3.4-5.0); Sodium 127 mmol/L (137-145)
[2021-09-26 08:00] VITALS: BP 90/50; PULSE 76; RESP 16; TEMP 36.7; O2SAT 98
[2021-09-26 08:01] VITALS: PULSE 88
[2021-09-26] MEDS: METOPROLOL SUCCINATE EXT REL 100 MG TABCR PO (08:01)
[2021-09-26] MEDS: ENOXAPARIN 40 MG/0.4 ML SYRINGE SUB-Q (08:01)
[2021-09-26] MEDS: ISOSORBIDE MONONITRATE 30 MG TAB.ER.24H PO (08:01)
[2021-09-26] MEDS: FUROSEMIDE 20 MG TABLET PO (08:01)
[2021-09-26] MEDS: MAGNESIUM OXIDE 400 MG TABLET PO (08:01)
[2021-09-26] MEDS: ASPIRIN 81 MG ENTERIC TABLET PO (08:01)
[2021-09-26] MEDS: SODIUM CHLORIDE 1 GM TABLET PO (08:01)
[2021-09-26] MEDS: SACUBITRIL/VALSARTAN 24-26 MG TABLET 1 TAB PO ×2 (08:02→22:07)
--- NOTE | 2021-09-26 10:22 | PCPTNOTE ---
Patient refused therapy this time. Patient reports he just laid down and needs to rest. Patient was educated on the benefits of therapy however continues to decline.
--- NOTE | 2021-09-26 11:45 | PM.PNNEP ---
Progress Note: A&P Assessment and Plan (1) Hyponatremia: Code(s): E87.1 - Hypo-osmolality and hyponatremia Status: Acute Assessment and Plan: The patient has hyponatremia. Initially, a year ago, his sodium was 120 and then by discharge it was up to 131. normal TSH and cortisol. Normal chest x-ray unremarkable CT brain the patient has no active cancer he is up-to-date with cancer screening. He was on hydrochlorothiazide at that time but is no longer on this. he was on escitalopram. this has been discontinued. He is on L Fluid restriction, Lasix once a day, salt tablets once a day. Today the sodium is Stable at 127. He is okay for discharge from the kidney standpoint. (2) Essential hypertension: Code(s): I10 - Essential (primary) hypertension Status: Acute Assessment and Plan: Blood pressures to be have smoothened out with the change to long-acting metoprolol. However today is a little bit low. Will decrease metoprolol to 50. (3) Fall: Code(s): W19.XXXA - Unspecified fall, initial encounter Status: Acute Assessment and Plan: The patient is getting physical therapy. (4) Atrial fibrillation: Code(s): I48.91 - Unspecified atrial fibrillation Status: Acute Assessment and Plan: His rate is under good control. Subjective Date/time seen: 09/26/21 11:45 Interval history: patient feels okay. No chest pain or shortness of breath. Exam Narrative: WDWN in NAD skin no rash or subcu nodules head ncat lungs clear to auscultation cor reg no rub or gallop abd BS+ nontender and soft ext no edema. Objective Data Vital Signs Vital Signs: Vital Signs - 24 hr 09/25/21 12:00 09/25/21 16:00 09/25/21 21:46 Temperature 36.3 C L 36.3 C L 36.8 C Pulse Rate 87 86 73 Respiratory Rate 20 18 16 Blood Pressure 124/82 122/86 118/74 Pulse Oximetry 100 100 100 Oxygen Delivery 09/25/21 20:36 09/26/21 02:58 09/26/21 08:01 Temperature 36.2 C L Pulse Rate 89 88 Respiratory Rate 17 Blood Pressure 102/75 Pulse Oximetry 99 96 Oxygen Delivery Room Air 09/26/21 08:10 09/26/21 08:00 Temperature 36.7 C Pulse Rate 76 Respiratory Rate 16 Blood Pressure 90/50 L Pulse Oximetry 98 Oxygen Delivery Room Air Intake/Output Intake/Output: Intake & Output 09/23/21 09/24/21 09/25/21 09/26/21 23:59 23:59 23:59 23:59 Intake Total 1770 1664 1200 240 Output Total 900 500 400 Balance 870 1164 800 240 Meds/Results Medications: Active Medications Generic Name Dose Route Start Last Admin Trade Name Freq PRN Reason Stop Dose Admin Acetaminophen 1,000 mg 09/23/21 21:00 09/25/21 20:28 Acetaminophen 500 Mg Tablet PO 1,000 mg HS ROZ Administration Alprazolam 0.25 mg 09/23/21 20:13 09/25/21 22:01 Alprazolam (*Crx) 0.25 Mg Tablet PO 0.25 mg HS PRN Administration Anxiety Aspirin 81 mg 09/24/21 09:00 09/26/21 08:01 Aspirin 81 Mg Enteric Tablet PO 81 mg DAILY ROZ Administration Atorvastatin Calcium 20 mg 09/25/21 21:00 09/25/21 20:27 Atorvastatin 20 Mg Tablet PO 20 mg HS ROZ Administration Diphenhydramine HCl 50 mg 09/23/21 21:00 09/25/21 20:27 Diphenhydramine Hcl Cap 25 Mg Capsule PO 10/23/21 20:59 50 mg HS ROZ Administration Enoxaparin Sodium 40 mg 09/23/21 09:00 09/26/21 08:01 Enoxaparin 40 Mg/0.4 Ml Syringe SUB-Q 40 mg DAILY ROZ Administration Fluticasone Propionate 2 spray 09/23/21 21:00 09/25/21 21:59 Fluticasone Propionate 0.05% Na Spr 16 Gm Btl (*Bkc) NASAL 2 spray HS ROZ Administration Furosemide 20 mg 09/26/21 09:00 09/26/21 08:01 Furosemide 20 Mg Tablet PO 20 mg DAILY ROZ Administration Isosorbide Mononitrate 30 mg 09/24/21 09:00 09/26/21 08:01 Isosorbide Mononitrate 30 Mg Tab.Er.24h PO 30 mg DAILY ROZ Administration Latanoprost 1 drop 09/24/21 21:00 09/25/21 20:27 [place]
--- NOTE | 2021-09-26 11:55 | PM.IMPN ---
Progress Note: A&P Assessment and Plan (1) Fall: Code(s): W19.XXXA - Unspecified fall, initial encounter Status: Acute Assessment and Plan: PT/OT consult (2) Hyponatremia: Code(s): E87.1 - Hypo-osmolality and hyponatremia Status: Acute Assessment and Plan: Patient had thorough workup back in August 2020. Cosyntropin stem test normal, TSH was normal. Hydrochlorothiazide was discontinued at that time, suspected secondary to dehydration and diarrhea. Patient does not have any of these symptoms at this time. Will consult Nephrology due to recurrence. Urine osmolarity and urine sodium, serum osmolarity ordered. Low suspicion lung cancer given remote smoking history. Will start NS IVF 125 cc/HR (3) Atrial fibrillation: Code(s): I48.91 - Unspecified atrial fibrillation Status: Acute Assessment and Plan: Patient is not aware of atrial fibrillation history. Atrial fibrillation with right bundle branch noted on previous EKG 08/2020. Patient reports he had a heart catheterization in the past that noted old occlusions. Patient is on Lopressor per med rec, however he is not on anticoagulation. Follows with Dr. 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
[2021-09-26 12:00] VITALS: BP 132/76; PULSE 84; RESP 20; TEMP 36.5; O2SAT 100
[2021-09-26 14:39] LABS: Osmolality, Urine 195 mOsm/kg (50-1200)
[2021-09-26 16:00] VITALS: BP 135/77; PULSE 74; RESP 16; TEMP 36.4; O2SAT 96
[2021-09-26 20:00] VITALS: BP 116/63; PULSE 66; RESP 16; TEMP 37.2; O2SAT 97
[2021-09-26] MEDS: diphenhydrAMINE HCl CAP 25 MG CAPSULE 50 MG PO (22:06)
[2021-09-26] MEDS: ATORVASTATIN 20 MG TABLET PO (22:07)
[2021-09-26] MEDS: ACETAMINOPHEN 500 MG TABLET 1000 MG PO (22:07)
[2021-09-26] MEDS: FLUTICASONE PROPIONATE 0.05% NA SPR 16 GM BTL (*BKC) 2 SPRAY NASAL (22:07)
[2021-09-26] MEDS: LATANOPROST 0.005% OP SOLN 2.5 ML BTL 1 DROP LEFT EYE (22:08)
[2021-09-26] MEDS: ALPRAZolam (*CRX) 0.25 MG TABLET PO (22:10)
[2021-09-27 05:00] VITALS: BP 116/76; PULSE 70; RESP 18; TEMP 36.6; O2SAT 98
[2021-09-27 06:44] LABS: Hematocrit 38.1 % (42.0-52.0); Hemoglobin 12.5 g/dL (14.0-18.0); Mean Corpuscular HGB Conc 32.8 g/dl (32-36); Mean Corpuscular Hemoglobin 34.3 pg (26-34); Mean Corpuscular Volume 104.7 fl (80-100); Platelet Count Result 138 k/mm3 (150-375); Red Blood Count 3.64 M/mm3 (4.6-6.20); Red Cell Distribution Width 11.9 % (11.5-14.5); White Blood Count 6.6 K/mm3 (4.5-10.0)
[2021-09-27 07:00] LABS: Anion Gap 7 mmol/L (8-16); Blood Urea Nitrogen 11 mg/dL (9-20); Calcium 8.4 mg/dL (8.4-10.2); Carbon Dioxide 26 mmol/L (22-30); Chloride 96 mmol/L (98-107); Estimated CRCL calculation 73 ml/min; Estimated Glomerular Filt Rate > 60; Glucose 95 mg/dL (65-110); Magnesium 1.9 mg/dL (1.6-2.3); Potassium 3.6 mmol/L (3.4-5.0); Sodium 129 mmol/L (137-145)
[2021-09-27 08:00] VITALS: BP 115/73; PULSE 70; RESP 20; TEMP 36.5; O2SAT 99
[2021-09-27] MEDS: ISOSORBIDE MONONITRATE 30 MG TAB.ER.24H PO (08:54)
[2021-09-27] MEDS: MAGNESIUM OXIDE 400 MG TABLET PO (08:54)
[2021-09-27] MEDS: METOPROLOL SUCCINATE EXT REL 50 MG TABCR PO (08:54)
[2021-09-27] MEDS: SACUBITRIL/VALSARTAN 24-26 MG TABLET 1 TAB PO (08:54)
[2021-09-27] MEDS: ENOXAPARIN 40 MG/0.4 ML SYRINGE SUB-Q (08:54)
[2021-09-27] MEDS: FUROSEMIDE 20 MG TABLET PO (08:54)
[2021-09-27] MEDS: SODIUM CHLORIDE 1 GM TABLET PO (08:55)
[2021-09-27] MEDS: ASPIRIN 81 MG ENTERIC TABLET PO (08:55)
[2021-09-27 12:00] VITALS: BP 93/58; PULSE 73; RESP 18; TEMP 36.1; O2SAT 97
--- NOTE | 2021-09-27 12:27 | PM.DS ---
DS: Admitting Diagnosis Discharge Date 03/30/2021 Admitting Diagnosis recurrent fall, hyponatremia DS: Discharge Diagnosis Discharge Diagnosis (1) Fall: Code(s): W19.XXXA - Unspecified fall, initial encounter Status: Acute Assessment and Plan: PT/OT consult (2) Hyponatremia: Code(s): E87.1 - Hypo-osmolality and hyponatremia Status: Acute Assessment and Plan: Patient had thorough workup back in August 2020. Cosyntropin stem test normal, TSH was normal. Hydrochlorothiazide was discontinued at that time, suspected secondary to dehydration and diarrhea. Patient does not have any of these symptoms at this time. Will consult Nephrology due to recurrence. Urine osmolarity and urine sodium, serum osmolarity ordered. Low suspicion lung cancer given remote smoking history. Will start NS IVF 125 cc/HR (3) Atrial fibrillation: Code(s): I48.91 - Unspecified atrial fibrillation Status: Acute Assessment and Plan: Patient is not aware of atrial fibrillation history. Atrial fibrillation with right bundle branch noted on previous EKG 08/2020. Patient reports he had a heart catheterization in the past that noted old occlusions. Patient is on Lopressor per med rec, however he is not on anticoagulation. Follows with Dr. Mai of [facility] in [place], will obtain records DS: Summary Hospital Course Reason for hospitalization: Chief Complaint: Fall Narrative: 86-year-old male past medical history of CAD, HTN/HLD.? Presents after fall.? Patient had a fall 09/18 and another fall 09/22, both which he claims he lost his balance.? Patient denies losing consciousness, significant weakness, dizziness/lightheadedness? He does admit to trouble with keeping his balance lately, states he does not bend down much as well due to concern of falling and inability to bend.? Patient reports he recently saw his PCP and his sodium was 131 at that time.? Patient admits to taking Lasix daily.? Patient reports he was up to 2 pack per day smoker for about 7 years, quit in his mid 20s.? Has never had a lung cancer screening.? States he has lost 15 lb over a year.? Denies poor p.o. intake.? Denies night sweats. In ED, vitals stable.? WBC 10.6, patient is afebrile.? MCV noted to be 101.? Hemoglobin 14.1, back in August 2020 hemoglobin 10.9.? Sodium noted to be 123.? UA negative.? CT head negative for acute intracranial pathology.? C-spine negative for fracture, however showing severe cervical spondylosis.? Right shoulder and forearm x-ray negative for fracture.? EKG showing atrial fibrillation with right bundle branch block, similar to EKG 08/2020. Hospital Course: ?86-year-old male with recurrent fall and unsteady on gait,? 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 etiology uncertain most likely debility due to age and inactivity, patient with hyponatremia, presented with sodium of 123 currently 127? which his baseline seen by boat outfitter suspect hyponatremia due to lexapro and stopped the medication, patient remains clinically stable he is been working with? PT OT will continue, patient will benefit going to SNF for rehab. patient remains clinically stable will discharge patient today patient will resume physical therapy at [facility] facility. Time Spent with Patient Time attestation: Total time spent providing and/or coordinating discharge services: Exam Narrative: Patient is comfortable, NAD HEENT: eyes are clear and none icteric LUNGS: normal respiratory effort ABD: not distended Lower extremities: no edema SKIN: nonjaundiced Neuro: grossly intact. DS: Data Data Completed and Pending Labs on day of discharge: Labs from last 24 hours 09/27/21 09/27/21 09/23/21 05:50 05:50 04:13 WBC 6.6 RBC 3.64 L Hgb 12.5 L Hct 38.1 L MCV 104.7 H MCH 34.3 H MCHC
== END 2021-09-27 14:50 | disposition home or self-care (01) ==
LOC: ANHED 22:26 → ANH3MEDSUR 09-27 12:27
PROVIDERS: Internal Medicine Nephrology; Admitting Provider Internal Medicine; Emergency Provider Emergency Medicine; PCP Family Medicine; Visit Provider Family Medicine
DX: E87.1 Hypo-osmolality and hyponatremia (principal); S51.011A Laceration without foreign body of right elbow, initial encounter; S40.022A Contusion of left upper arm, initial encounter; W10.9XXA Fall (on) (from) unspecified stairs and steps, initial encounter; Z91.81 History of falling; I48.91 Unspecified atrial fibrillation; Y92.094 Garage of other non-institutional residence as the place of occurrence of the external cause; R26.81 Unsteadiness on feet; R53.1 Weakness; I45.10 Unspecified right bundle-branch block; I25.10 Atherosclerotic heart disease of native coronary artery without angina pectoris; I10 Essential (primary) hypertension; E78.5 Hyperlipidemia, unspecified; R29.6 Repeated falls; R42 Dizziness and giddiness; R63.4 Abnormal weight loss; Z68.29 Body mass index [BMI] 29.0-29.9, adult; M47.812 Spondylosis without myelopathy or radiculopathy, cervical region; H40.9 Unspecified glaucoma; M19.012 Primary osteoarthritis, left shoulder; R90.82 White matter disease, unspecified; Z20.822 Contact with and (suspected) exposure to COVID-19; Z86.73 Personal history of transient ischemic attack (TIA), and cerebral infarction without residual deficits; Z87.891 Personal history of nicotine dependence; Z79.1 Long term (current) use of non-steroidal anti-inflammatories (NSAID); Z79.52 Long term (current) use of systemic steroids; Z79.51 Long term (current) use of inhaled steroids; Z79.899 Other long term (current) drug therapy; Z82.49 Family history of ischemic heart disease and other diseases of the circulatory system
CPT/HCPCS: 36415; 70450; 71045; 72125; 73030; 73090; 80048; 80053; 80069; 81001; 82570; 83735; 83930; 83935; 84100; 84156; 84295; 84300; 84443; 84540; 85025; 85027; 85055; 85610; 85730; 93005; 96360; 96372; 97110; 97116; 97161; 97166; 97530; 97535; 99285; A9270; C9803; G0378; J1650; J7030; U0003; U0005

== ENCOUNTER 2022-06-03 15:16 | Inpatient (IN) | payer MEDICARE, SELFPAY ==
[2022-06-03] VITALS (18 sets, daily range): BP systolic 60–117; BP diastolic 42–78; PULSE 51–109; RESP 16–24; TEMP 36.4–36.6; O2SAT 94–100; BMI 31.1
--- NOTE | ~2022-06-03 | US_ITS ---
EXAMINATION: US venous doppler [facility] DATE: 06/03/2022 16:35 INDICATION: Left calf swelling. TECHNIQUE: Grayscale ultrasound images without and with compression and Doppler ultrasound images of the left lower extremity veins were obtained. COMPARISON: None. FINDINGS: The visualized portions of left common femoral vein, profunda (deep) femoral vein, femoral vein, popl iteal vein, peroneal veins, posterior tibial veins, and greater saphenous vein outflow are patent. IMPRESSION: 1. No deep venous thrombosis. Reviewed, dictated and finalized at location E.
--- NOTE | 2022-06-03 15:59 | ECG_ITS ---
Measurements Intervals [place] Rate: 105 P: OK: 0 QRS: 76 QRSD: 141 T: 1 QT: 356 QTc: 472 Interpretive Statements ATRIAL FIBRILLATION WITH RAPID VENTRICULAR RESPONSE RIGHT BUNDLE BRANCH BLOCK [120+ ms QRS DURATION, UPRIGHT V1, 40+ ms S IN I/aVL/V4/V5/V6] INTERPRETATION BASED ON A DEFAULT AGE OF 40 YEARS COMPARED TO ECG 09/22/2021 22:30:54 NO SIGNIFICANT CHANGES Electronically Signed On 06-04-2022 12:06:11 CDT by Jose Merino M.D.
[2022-06-03 16:06] LABS: Basophils Percent Auto 0.1 % (0.2-1.2); Hematocrit 44.6 % (42.0-52.0); Hemoglobin 14.5 g/dL (14.0-18.0); Immature Granulocyte Absolute 0.07 K/mm3 (0.00-0.031); Immature Granulocyte Percent A 0.5 % (0-0.5); Lymphocytes Absolute Auto 0.75 K/mm3 (0.9-3.2); Lymphocytes Percent Auto 4.9 % (18.3-44.2); Mean Corpuscular HGB Conc 32.5 g/dl (32-36); Mean Corpuscular Hemoglobin 36.8 pg (26-34); Mean Corpuscular Volume 113.2 fl (80-100); Mean Platelet Volume 8.6 fl (7.4-10.4); Monocytes Absolute Auto 1.2 K/mm3 (0.1-0.6); Monocytes Percent Auto 7.5 % (2.6-8.5); Neutrophils Absolute Auto 13.4 K/mm3 (1.3-6.7); Platelet Count Result 133 k/mm3 (150-375); Red Blood Count 3.94 M/mm3 (4.6-6.20); Red Cell Distribution Width 12.1 % (11.5-14.5); White Blood Count 15.3 K/mm3 (4.5-10.0)
[2022-06-03 16:19] LABS: Anion Gap 7 mmol/L (8-16); Blood Urea Nitrogen 15 mg/dL (9-20); Calcium 8.6 mg/dL (8.4-10.2); Carbon Dioxide 29 mmol/L (22-30); Chloride 97 mmol/L (98-107); Estimated CRCL calculation 57 ml/min; Estimated Glomerular Filt Rate > 60; Glucose 92 mg/dL (65-110); Potassium 3.8 mmol/L (3.4-5.0); Sodium 133 mmol/L (137-145)
[2022-06-03 16:23] LABS: INR 1.1; Prothrombin Time 14.1 Seconds (11.1-14.7)
[2022-06-03 16:27] LABS: Macrocytosis 1+ (NORMAL); Platelet Estimate Decreased (Adequate); Stomatocytes 1+ (NORMAL)
[2022-06-03 16:28] LABS: Schistocytes None Seen (NORMAL)
[2022-06-03] MEDS: SODIUM CHLORIDE 0.9% IV 1,000 ML 999 ML IV CONT ×2 (16:35→20:11)
--- NOTE | 2022-06-03 17:07 | ED.GENADULT ---
HPI - General Adult General Chief complaint: Extremity Problem,Nontraumatic Stated complaint: DVT r/o, referral Time Seen by Provider: 06/03/22 16:04 History of Present Illness HPI narrative: Patient is an 87-year-old male who presents ER due to concern for leg swelling and possible DVT. Woke up this morning and was having some cramping in his left leg and pain. Several hours later he developed swelling. Reports the swelling is gone down. No chest pain or shortness of breath. No history of DVT in the past. Patient found to be hypotensive here on repeat blood pressures. Denies fevers chills or sweats. Patient has been a bit more fatigued than typical. Denies urinary symptoms. Related Data Home Medications Medication Instructions Recorded Confirmed isosorbide mononitrate 30 mg 30 mg PO DAILY 02/02/19 09/23/21 tablet,extended release 24 hr loratadine 10 mg tablet (Claritin) 10 mg PO DAILY PRN Allergic 08/13/20 09/23/21 Symptoms furosemide 20 mg tablet 20 mg PO BID 09/22/21 09/23/21 aspirin 81 mg tablet,delayed 81 mg PO DAILY 09/23/21 09/23/21 release atorvastatin 20 mg tablet 20 mg PO DAILY 09/23/21 09/23/21 diphenhydramine 25 2 tablet PO HS 09/23/21 09/23/21 mg-acetaminophen 500 mg tablet (Tylenol PM Extra Strength) escitalopram oxalate 10 mg tablet 10 mg PO DAILY 09/23/21 09/23/21 (Lexapro) fluticasone propionate 50 2 spray intranasal HS 09/23/21 09/23/21 mcg/actuation nasal spray,suspension latanoprost 0.005 % eye drops 1 drp LEFT EYE QPM 09/23/21 09/23/21 sacubitril 24 mg-valsartan 26 mg 1 tablet PO BID 09/23/21 09/23/21 tablet (Entresto) brimonidine 0.2 %-timolol 0.5 % 1 drp EACH EYE Q12H 06/03/22 06/03/22 eye drops (Combigan) metoprolol succinate 100 mg 100 mg PO Q12H 06/03/22 06/03/22 tablet,extended release 24 hr (Toprol XL) Allergies Allergy/AdvReac Type Severity Reaction Status Date / Time No Known Allergies Allergy Verified 06/03/22 21:04 Review of Systems Review of Systems: All systems reviewed & are unremarkable except as noted in HPI and below Constitutional: Constitutional: Denies chills, Reports fatigue and Denies fever(s) ENT: Denies nasal congestion and Denies sore throat Cardiovascular: Cardiovascular: Denies chest pain, Denies rapid heart rate and Denies radiating jaw, neck or arm pain Respiratory: Respiratory: Denies cough and Denies dyspnea Gastrointestinal: Gastrointestinal: Denies abdominal pain, Denies nausea and Denies vomiting Musculoskeletal: Comments: Left leg pain and swelling Integumentary/Breasts: Skin/Breast: Denies pruritus, Denies erythema and Denies rash PMFSH Past Medical History Medical History Coronary artery disease COVID-19 vaccine series completed (~03/2020) Essential hypertension Glaucoma Hyperlipidemia Surgical History Surgical History History of cardiac catheterization (~04/2019) with old prior occlusions noted, not a candidate for stent at that time per patient report History of detached retina repair left eye History of tonsillectomy and adenoidectomy Family History Family History Father Cerebral aneurysm Mother Heart disease Social History Social History Social History: He has been since 1957. He and his living Reynaldo federico. He is retired from [employer]. They have 5 biological children and adopted 2 of their grand children. He usually drinks 3-4 mixed drinks a night. He is independent in activities of daily living and still drives. Smoking packs per day: 1 Smoking cigarettes per day: 20.0 Years smoked: 5 Smoking pack-years: 5.00 Smoking status: Former smoker Tobacco type: cigarettes Second hand tobacco smoke exposure: N
[2022-06-03 17:11] LABS: Lactic Acid Reflex 2.3 mmol/L (0.7-2.0)
[2022-06-03 18:01] LABS: Appearance Urine Clear (Clear); Bacteria Urine None Seen /hpf; Bilirubin Urine Negative (Negative); Blood Urine Negative (Negative); Color Urine Dark Yellow (Yellow); Glucose Urine UA Negative (Negative); Ketones Urine Trace mg/dL (Negative); Leukocyte Esterase Ur Trace LEU/UL (Negative); Need Manual Microscopic Reviewed; Nitrate Urine Negative (Negative); Protein Urine Trace mg/dL (Negative); RBC Urine 0-2 /hpf (0-2); Specific Grav Ur 1.022 (1.001-1.035); Spermatozoa Urine Present; Squamous Epithelial Cell Urine None seen /hpf (Few); WBC Urine 0-5 /hpf; pH Urine 5.5 (5.0-9.0)
[2022-06-03 18:02] LABS: Add Urine Microscopic? YES
[2022-06-03] MEDS: ceFAZolin 1 GM/NS 50 ML 1 GM/50 ML BAG IVPB (18:38)
[2022-06-03 19:58] LABS: Reflex Lactic Acid Yes or No Add Lactic
[2022-06-03 20:42] LABS: Lactic Acid 2.3 mmol/L (0.7-2.0)
--- NOTE | 2022-06-03 20:51 | ADMGEN ---
This patient, Edison Burr, was admitted to Medical Room 344-01. Patient/family oriented to hospital policies and general routines including ID bracelet, bed and alarms, visiting hours, pain management, procedures, bathroom and other care routines, personal items, smoking policy, room service/diet, and visiting hours. Information on how to activate the Rapid Response Team has been discussed. Patient/Family are encouraged to report perceived risks to care and to ask questions if they do not understand what they are told or what they should do.
[2022-06-03] MEDS: SODIUM CHLORIDE 0.9% IV 1,000 ML 125 ML IV CONT (22:45)
[2022-06-04] MEDS: ceFAZolin 1 GM/NS 50 ML 1 GM/50 ML BAG IVPB ×3 (01:34→17:55)
[2022-06-04 04:31] VITALS: BP 141/83; PULSE 96; RESP 18; TEMP 36.4; O2SAT 99
--- NOTE | 2022-06-04 05:00 | PM.IMHP ---
H&P: HPI History of Present Illness Date/Time: 06/04/22 04:00 Chief Complaint: Left leg pain and swelling Narrative: 87-year-old male with a past medical history of glaucoma, CHF, and hypertension who presented to the ER with left lower extremity pain and swelling. The patient reports that he used to frequently good cellulitis of his lower extremities. However he he usually puts moisturizer on his legs and put the loose covering over his legs to help moisturizer sink in. Recently he had not been doing so as consistently. He reports that as a result of this he began having increased discomfort in his left leg to her 3 days ago. It was accompanied by some increased swelling. He states that he does not know if his leg is more red than usual. But he began having increased cramping in his leg on the morning of the . As the day progressed she had increased swelling and pain. It became painful for him to walk on the leg. He noted that when he went across his legs during the day he rubbed his right foot across his ruby and that subsequently opened an area on his leg in it began draining. He denied having any fevers or chills. He did note that he was having some lightheadedness when he would stand. When he arrived to the ER he was found to be hypotensive and mildly tachycardic. He received 2 L of IV fluid bolus with resolution of hypotension. He reports that he feels like he has been eating and drinking without difficulty. He denies any chest pain or shortness of breath. He has not had any cough or congestion. He denies any recent ill contacts. Review of Systems Review of Systems: 12 systems were reviewed with pertinent positives and negatives per HPI. Except as documented in the HPI, all other systems were reviewed and are negative. [facility] Past Medical History Medical History Coronary artery disease COVID-19 vaccine series completed (~03/2020) Essential hypertension Glaucoma Hyperlipidemia Surgical History Surgical History History of cardiac catheterization (~04/2019) with old prior occlusions noted, not a candidate for stent at that time per patient report History of detached retina repair left eye History of tonsillectomy and adenoidectomy Family History Family History Father Cerebral aneurysm Mother Heart disease Social History Social History (Updated 06/04/22 @ 23:08 by Mariella Serraon DO) Social History: He has been since 1955. He and his living Reynaldo caballero. He is retired from [employer]. They have 5 biological children and adopted 2 of their grand children. He usually drinks 3-4 mixed drinks a night. He is independent in activities of daily living and still drives. Code Status: DNR/DNI (I personally had a discussion with the patient regarding goals of care and code status. He verbalized that he would be okay with full treatment until the event of cardiac arrest. If that were to occur he would not want CPR or intubation) Smoking packs per day: 1 Smoking cigarettes per day: 20.0 Years smoked: 5 Smoking pack-years: 5.00 Smoking status: Former smoker Tobacco type: cigarettes Second hand tobacco smoke exposure: No Alcohol intake: current Drinks per week: 3 Substance use: never Lack of Transportation: No Lack of Food: Never True Current Housing: I Have Housing Concerned About Future Housing: No Difficulty Paying Gas/Electric Bills: No Difficulty Paying for Meds: No Currently Unemployed: No Education: Decline to Answer Difficulty w/ Childcare or Family Care: No Gender identity (if verbalized by the patient): Male Sexual Orientation (if Verbalized by the Patient): Straight or Heterosexual Spiritual care concerns: No Meds Home Medications and Viktor
[2022-06-04] MEDS: ENOXAPARIN 40 MG/0.4 ML SYRINGE SUB-Q (09:33)
[2022-06-04] MEDS: ATORVASTATIN 20 MG TABLET PO (09:34)
[2022-06-04] MEDS: SACUBITRIL/VALSARTAN 24-26 MG TABLET 1 TAB PO ×2 (09:34→21:11)
[2022-06-04] MEDS: ASPIRIN 81 MG ENTERIC TABLET PO (09:34)
[2022-06-04] MEDS: MAGNESIUM OXIDE 400 MG TABLET PO (09:34)
[2022-06-04] MEDS: ISOSORBIDE MONONITRATE 30 MG TAB.ER.24H PO (09:36)
[2022-06-04] MEDS: FUROSEMIDE 20 MG TABLET PO (09:36)
[2022-06-04] MEDS: TIMOLOL MALEATE 0.5% OP SOLN 5 ML BOTTLE 1 DROP EACH EYE ×2 (09:38→21:09)
[2022-06-04] MEDS: BRIMONIDINE TARTRATE 0.2% OP SOLN 5 ML BTL 1 DROP EACH EYE ×2 (09:38→21:09)
[2022-06-04 09:39] VITALS: PULSE 96
[2022-06-04] MEDS: METOPROLOL SUCCINATE EXT REL 100 MG TABCR PO (09:39)
[2022-06-04 09:45] VITALS: PULSE 93; RESP 17; O2SAT 97
[2022-06-04 10:22] LABS: Anion Gap 7 mmol/L (8-16); Blood Urea Nitrogen 14 mg/dL (9-20); Calcium 8.1 mg/dL (8.4-10.2); Carbon Dioxide 25 mmol/L (22-30); Chloride 101 mmol/L (98-107); Estimated CRCL calculation 81 ml/min; Estimated Glomerular Filt Rate > 60; Glucose 104 mg/dL (65-110); Potassium 3.7 mmol/L (3.4-5.0); Sodium 133 mmol/L (137-145)
[2022-06-04 12:03] LABS: Hematocrit 39.5 % (42.0-52.0); Hemoglobin 12.8 g/dL (14.0-18.0); Immature Platelet Fraction Pct 1.6 % (0.9-11.2); Mean Corpuscular HGB Conc 32.4 g/dl (32-36); Mean Corpuscular Hemoglobin 37.4 pg (26-34); Mean Corpuscular Volume 115.5 fl (80-100); Mean Platelet Volume 8.9 fl (7.4-10.4); Platelet Count Result 112 k/mm3 (150-375); Red Blood Count 3.42 M/mm3 (4.6-6.20); Red Cell Distribution Width 12.5 % (11.5-14.5); White Blood Count 13.6 K/mm3 (4.5-10.0)
[2022-06-04 14:00] VITALS: BP 92/62; PULSE 93; RESP 17; TEMP 36; O2SAT 97
--- NOTE | 2022-06-04 14:54 | PM.IMPN ---
Progress Note: A&P Assessment and Plan (1) Cellulitis of left leg: Code(s): L03.116 - Cellulitis of left lower limb Status: Acute Assessment and Plan: Patient has marked erythema and warmth of the left lower extremity. Will continue empiric antibiotic therapy with Ancef. Given the degree of warmth and tenderness still involved in the patient's lower extremity he benefit from least 48 hours antibiotic therapy. Will repeat CBC this a.m.. 06/04/2022 interval history: Patient with left lower extremity cellulitis and scabs present with pain and swelling being treated with cefazolin, continue to complain of pain and redness, denies any fever or chills, continue to monitor and further recommendation to follow. (2) Transient hypotension: Code(s): I95.9 - Hypotension, unspecified Status: Acute Assessment and Plan: Blood pressure improved after IV fluid resuscitation. Likely due to infection and relative hypovolemia. The patient now appears euvolemic. Will stop IV fluid hydration. Will resume patient's home Lasix Toprol and Entresto. (3) CHF (congestive heart failure): Qualifiers: Heart failure type: unspecified Heart failure chronicity: chronic Qualified Code(s): I50.9 - Heart failure, unspecified Code(s): I50.9 - Heart failure, unspecified Status: Acute Assessment and Plan: The patient was initially hypotensive but and hypotension has resolved. The patient now appears euvolemic. Will stop additional IV fluids to avoid fluid overload. Will resume patient's home Entresto, metoprolol and Lasix. Subjective Date/time seen: 06/04/22 14:54 Interval history: Chief Complaint: Left leg pain and swelling HPI-Narrative: 87-year-old male with a past medical history of glaucoma, CHF, and hypertension who presented to the ER with left lower extremity pain and swelling.? The patient reports that he used to frequently good cellulitis of his lower extremities.? However he he usually puts moisturizer on his legs and put the loose covering over his legs to help moisturizer sink in.? Recently he had not been doing so as consistently.? He reports that as a result of this he began having increased discomfort in his left leg to her 3 days ago.? It was accompanied by some increased swelling.? He states that he does not know if his leg is more red than usual.? But he began having increased cramping in his leg on the morning of the .? As the day progressed she had increased swelling and pain.? It became painful for him to walk on the leg.? He noted that when he went across his legs during the day he rubbed his right foot across his ruby and that subsequently opened an area on his leg in it began draining.? He denied having any fevers or chills.? He did note that he was having some lightheadedness when he would stand.? When he arrived to the ER he was found to be hypotensive and mildly tachycardic.? He received 2 L of IV fluid bolus with resolution of hypotension.? He reports that he feels like he has been eating and drinking without difficulty.? He denies any chest pain or shortness of breath.? He has not had any cough or congestion.? He denies any recent ill contacts. 06/04/2022 interval history: Patient with left lower extremity cellulitis and scabs present with pain and swelling being treated with cefazolin, continue to complain of pain and redness, denies any fever or chills, continue to monitor and further recommendation to follow. Review of Systems Review of Systems: 12 systems were reviewed with pertinent positives and negatives per HPI. Except as documented in the HPI, all other systems were reviewed and are negative. Exam Narrative: Morbidly obese Patient is comfortable, NAD HEENT: eyes are clear and none icteric LUNGS: Normal respiratory effort ABD: Distended Lower extremities: Left lower extremity [id number] erythematosus scabs, no induration no drainage. SKIN
[2022-06-04] MEDS: LATANOPROST 0.005% OP SOLN 2.5 ML BTL 1 DROP LEFT EYE (17:55)
[2022-06-04 20:20] VITALS: BP 125/83; PULSE 84; RESP 18; TEMP 36.6; O2SAT 98
[2022-06-04] MEDS: ACETAMINOPHEN 500 MG TABLET 1000 MG PO (21:09)
[2022-06-04] MEDS: FLUTICASONE PROPIONATE 0.05% NA SPR 16 GM BTL (*BKC) 2 SPRAY NASAL (21:10)
[2022-06-05] MEDS: ceFAZolin 1 GM/NS 50 ML 1 GM/50 ML BAG IVPB ×3 (01:55→17:49)
[2022-06-05 05:11] VITALS: BP 133/80; PULSE 72; RESP 18; TEMP 36.5; O2SAT 98
[2022-06-05 06:06] LABS: Hematocrit 38.7 % (42.0-52.0); Hemoglobin 12.5 g/dL (14.0-18.0); Mean Corpuscular HGB Conc 32.3 g/dl (32-36); Mean Corpuscular Hemoglobin 36.7 pg (26-34); Mean Corpuscular Volume 113.5 fl (80-100); Mean Platelet Volume 9.1 fl (7.4-10.4); Platelet Count Result 101 k/mm3 (150-375); Red Blood Count 3.41 M/mm3 (4.6-6.20); Red Cell Distribution Width 12.2 % (11.5-14.5); White Blood Count 9.8 K/mm3 (4.5-10.0)
[2022-06-05 06:18] LABS: Anion Gap 2 mmol/L (8-16); Blood Urea Nitrogen 14 mg/dL (9-20); Calcium 8.2 mg/dL (8.4-10.2); Carbon Dioxide 29 mmol/L (22-30); Chloride 103 mmol/L (98-107); Estimated CRCL calculation 81 ml/min; Estimated Glomerular Filt Rate > 60; Glucose 94 mg/dL (65-110); Magnesium 1.9 mg/dL (1.6-2.3); Potassium 3.2 mmol/L (3.4-5.0); Sodium 134 mmol/L (137-145)
[2022-06-05] MEDS: ASPIRIN 81 MG ENTERIC TABLET PO (08:36)
[2022-06-05] MEDS: MAGNESIUM OXIDE 400 MG TABLET PO (08:36)
[2022-06-05] MEDS: ATORVASTATIN 20 MG TABLET PO (08:36)
[2022-06-05] MEDS: FUROSEMIDE 20 MG TABLET PO (08:36)
[2022-06-05] MEDS: SACUBITRIL/VALSARTAN 24-26 MG TABLET 1 TAB PO ×2 (08:36→20:49)
[2022-06-05 08:37] VITALS: PULSE 76
[2022-06-05] MEDS: METOPROLOL SUCCINATE EXT REL 100 MG TABCR PO (08:37)
[2022-06-05] MEDS: TIMOLOL MALEATE 0.5% OP SOLN 5 ML BOTTLE 1 DROP EACH EYE ×2 (08:38→20:49)
[2022-06-05] MEDS: BRIMONIDINE TARTRATE 0.2% OP SOLN 5 ML BTL 1 DROP EACH EYE ×2 (08:38→20:49)
[2022-06-05] MEDS: ISOSORBIDE MONONITRATE 30 MG TAB.ER.24H PO (08:38)
[2022-06-05 08:40] VITALS: PULSE 82; RESP 16; O2SAT 100
[2022-06-05 14:00] VITALS: BP 116/70; PULSE 82; RESP 16; TEMP 37; O2SAT 100
--- NOTE | 2022-06-05 14:42 | PM.IMPN ---
Progress Note: A&P Assessment and Plan (1) Cellulitis of left leg: Code(s): L03.116 - Cellulitis of left lower limb Status: Acute Assessment and Plan: Patient has marked erythema and warmth of the left lower extremity. Will continue empiric antibiotic therapy with Ancef. Given the degree of warmth and tenderness still involved in the patient's lower extremity he benefit from least 48 hours antibiotic therapy. Will repeat CBC this a.m.. 06/05/2022 interval history: Patient with left lower extremity cellulitis and scabs present with pain and swelling being treated with cefazolin, continue to complain of pain and redness, today there is improvement in erythema and pain, denies any fever or chills, continue to monitor and further recommendation to follow. (2) Transient hypotension: Code(s): I95.9 - Hypotension, unspecified Status: Acute Assessment and Plan: Blood pressure improved after IV fluid resuscitation. Likely due to infection and relative hypovolemia. The patient now appears euvolemic. Will stop IV fluid hydration. Will resume patient's home Lasix Toprol and Entresto. (3) CHF (congestive heart failure): Qualifiers: Heart failure type: unspecified Heart failure chronicity: chronic Qualified Code(s): I50.9 - Heart failure, unspecified Code(s): I50.9 - Heart failure, unspecified Status: Acute Assessment and Plan: The patient was initially hypotensive but and hypotension has resolved. The patient now appears euvolemic. Will stop additional IV fluids to avoid fluid overload. Will resume patient's home Entresto, metoprolol and Lasix. Subjective Date/time seen: 06/05/22 14:42 Interval history: Chief Complaint: Left leg pain and swelling HPI-Narrative: 87-year-old male with a past medical history of glaucoma, CHF, and hypertension who presented to the ER with left lower extremity pain and swelling.? The patient reports that he used to frequently good cellulitis of his lower extremities.? However he he usually puts moisturizer on his legs and put the loose covering over his legs to help moisturizer sink in.? Recently he had not been doing so as consistently.? He reports that as a result of this he began having increased discomfort in his left leg to her 3 days ago.? It was accompanied by some increased swelling.? He states that he does not know if his leg is more red than usual.? But he began having increased cramping in his leg on the morning of the .? As the day progressed she had increased swelling and pain.? It became painful for him to walk on the leg.? He noted that when he went across his legs during the day he rubbed his right foot across his ruby and that subsequently opened an area on his leg in it began draining.? He denied having any fevers or chills.? He did note that he was having some lightheadedness when he would stand.? When he arrived to the ER he was found to be hypotensive and mildly tachycardic.? He received 2 L of IV fluid bolus with resolution of hypotension.? He reports that he feels like he has been eating and drinking without difficulty.? He denies any chest pain or shortness of breath.? He has not had any cough or congestion.? He denies any recent ill contacts. 06/05/2022 interval history: Patient with left lower extremity cellulitis and scabs present with pain and swelling being treated with cefazolin, continue to complain of pain and redness, today there is improvement in erythema and pain, denies any fever or chills, continue to monitor and further recommendation to follow. Review of Systems Review of Systems: 12 systems were reviewed with pertinent positives and negatives per HPI. Except as documented in the HPI, all other systems were reviewed and are negative. Exam Narrative: Morbidly obese Patient is comfortable, NAD HEENT: eyes are clear and none icteric LUNGS: Normal respiratory effort ABD: Distended Lower extrem
[2022-06-05] MEDS: LATANOPROST 0.005% OP SOLN 2.5 ML BTL 1 DROP LEFT EYE (17:49)
[2022-06-05 19:46] VITALS: BP 134/81; PULSE 83; RESP 18; TEMP 36.6; O2SAT 98
[2022-06-05] MEDS: ACETAMINOPHEN 500 MG TABLET 1000 MG PO (20:49)
[2022-06-05] MEDS: FLUTICASONE PROPIONATE 0.05% NA SPR 16 GM BTL (*BKC) 2 SPRAY NASAL (20:49)
[2022-06-05] MEDS: ALPRAZolam (*CRX) 0.25 MG TABLET PO (20:49)
[2022-06-05] MEDS: LORATADINE 10 MG TABLET PO (21:51)
[2022-06-06] MEDS: ceFAZolin 1 GM/NS 50 ML 1 GM/50 ML BAG IVPB ×3 (02:11→17:06)
[2022-06-06 04:59] VITALS: BP 117/70; PULSE 70; RESP 20; TEMP 36.6; O2SAT 99
[2022-06-06 05:46] LABS: Hematocrit 39.1 % (42.0-52.0); Hemoglobin 12.7 g/dL (14.0-18.0); Mean Corpuscular HGB Conc 32.5 g/dl (32-36); Mean Corpuscular Hemoglobin 36.7 pg (26-34); Mean Platelet Volume 8.7 fl (7.4-10.4); Platelet Count Result 101 k/mm3 (150-375); Red Blood Count 3.46 M/mm3 (4.6-6.20); Red Cell Distribution Width 11.9 % (11.5-14.5); White Blood Count 7.8 K/mm3 (4.5-10.0)
[2022-06-06 05:58] LABS: Anion Gap 3 mmol/L (8-16); Blood Urea Nitrogen 14 mg/dL (9-20); Calcium 8.3 mg/dL (8.4-10.2); Carbon Dioxide 28 mmol/L (22-30); Chloride 101 mmol/L (98-107); Estimated CRCL calculation 81 ml/min; Estimated Glomerular Filt Rate > 60; Glucose 101 mg/dL (65-110); Potassium 3.5 mmol/L (3.4-5.0); Sodium 132 mmol/L (137-145)
[2022-06-06] MEDS: ATORVASTATIN 20 MG TABLET PO (09:02)
[2022-06-06] MEDS: SACUBITRIL/VALSARTAN 24-26 MG TABLET 1 TAB PO ×2 (09:02→21:00)
[2022-06-06] MEDS: MAGNESIUM OXIDE 400 MG TABLET PO (09:02)
[2022-06-06] MEDS: ISOSORBIDE MONONITRATE 30 MG TAB.ER.24H PO (09:02)
[2022-06-06] MEDS: ASPIRIN 81 MG ENTERIC TABLET PO (09:02)
[2022-06-06] MEDS: FUROSEMIDE 20 MG TABLET PO (09:03)
[2022-06-06 09:04] VITALS: PULSE 86
[2022-06-06] MEDS: METOPROLOL SUCCINATE EXT REL 100 MG TABCR PO (09:04)
[2022-06-06] MEDS: POTASSIUM CHLORIDE 20 MEQ TABLET 40 MEQ PO (09:05)
[2022-06-06] MEDS: ENOXAPARIN 40 MG/0.4 ML SYRINGE SUB-Q (09:06)
[2022-06-06] MEDS: TIMOLOL MALEATE 0.5% OP SOLN 5 ML BOTTLE 1 DROP EACH EYE ×2 (09:06→20:59)
[2022-06-06] MEDS: BRIMONIDINE TARTRATE 0.2% OP SOLN 5 ML BTL 1 DROP EACH EYE ×2 (09:06→20:59)
--- NOTE | 2022-06-06 13:14 | P.CDI_ITS ---
CDI Query Clarification Request Documented history of CHF. CHF noted in the assessment and plan. Entresto and Lasix listed as home medications. Patient receiving Lasix and Entresto. Please specify type and acuity of heart failure if known. * Acute * Chronic * Acute on Chronic * Unknown * Systolic * Diastolic * Combined Systolic and Diastolic * Unknown <Lulu Villalobos RN - Last Filed: 06/06/22 13:17> Clarified Diagnosis Clarified Diagnosis: Though patient has history of cardiomyopathy upon presentation patient was euvolemic and hypotensive, patient was not treated for CHF <Lakesha Dejesus MD - Last Filed: 06/15/22 07:41>
[2022-06-06 14:00] VITALS: BP 108/66; PULSE 82; RESP 16; TEMP 36.4; O2SAT 99
--- NOTE | 2022-06-06 16:58 | PM.IMPN ---
Progress Note: A&P Assessment and Plan (1) Cellulitis of left leg: Code(s): L03.116 - Cellulitis of left lower limb Status: Acute Assessment and Plan: Patient has marked erythema and warmth of the left lower extremity. Will continue empiric antibiotic therapy with Ancef. Given the degree of warmth and tenderness still involved in the patient's lower extremity he benefit from least 48 hours antibiotic therapy. Will repeat CBC this a.m.. 06/06/2022 interval history: Patient with left lower extremity cellulitis and scabs present with pain and swelling being treated with cefazolin, continue to complain of pain and redness, today there is improvement in erythema and pain, denies any fever or chills, continue to monitor 1 more day possibly discharge tomorrw, and further recommendation to follow. (2) Transient hypotension: Code(s): I95.9 - Hypotension, unspecified Status: Acute Assessment and Plan: Blood pressure improved after IV fluid resuscitation. Likely due to infection and relative hypovolemia. The patient now appears euvolemic. Will stop IV fluid hydration. Will resume patient's home Lasix Toprol and Entresto. (3) CHF (congestive heart failure): Qualifiers: Heart failure type: unspecified Heart failure chronicity: chronic Qualified Code(s): I50.9 - Heart failure, unspecified Code(s): I50.9 - Heart failure, unspecified Status: Acute Assessment and Plan: The patient was initially hypotensive but and hypotension has resolved. The patient now appears euvolemic. Will stop additional IV fluids to avoid fluid overload. Will resume patient's home Entresto, metoprolol and Lasix. Subjective Date/time seen: 06/06/22 16:58 Interval history: Chief Complaint: Left leg pain and swelling HPI-Narrative: 87-year-old male with a past medical history of glaucoma, CHF, and hypertension who presented to the ER with left lower extremity pain and swelling.? The patient reports that he used to frequently good cellulitis of his lower extremities.? However he he usually puts moisturizer on his legs and put the loose covering over his legs to help moisturizer sink in.? Recently he had not been doing so as consistently.? He reports that as a result of this he began having increased discomfort in his left leg to her 3 days ago.? It was accompanied by some increased swelling.? He states that he does not know if his leg is more red than usual.? But he began having increased cramping in his leg on the morning of the .? As the day progressed she had increased swelling and pain.? It became painful for him to walk on the leg.? He noted that when he went across his legs during the day he rubbed his right foot across his ruby and that subsequently opened an area on his leg in it began draining.? He denied having any fevers or chills.? He did note that he was having some lightheadedness when he would stand.? When he arrived to the ER he was found to be hypotensive and mildly tachycardic.? He received 2 L of IV fluid bolus with resolution of hypotension.? He reports that he feels like he has been eating and drinking without difficulty.? He denies any chest pain or shortness of breath.? He has not had any cough or congestion.? He denies any recent ill contacts. 06/06/2022 interval history: Patient with left lower extremity cellulitis and scabs present with pain and swelling being treated with cefazolin, continue to complain of pain and redness, today there is improvement in erythema and pain, denies any fever or chills, continue to monitor 1 more day possibly discharge tomorrw, and further recommendation to follow. Review of Systems Review of Systems: 12 systems were reviewed with pertinent positives and negatives per HPI. Except as documented in the HPI, all other systems were reviewed and are negative. Exam Narrative: Morbidly obese Patient is comfortable, NAD HEENT: eyes are clear and non
[2022-06-06] MEDS: ACETAMINOPHEN 500 MG TABLET 1000 MG PO (21:00)
[2022-06-06] MEDS: FLUTICASONE PROPIONATE 0.05% NA SPR 16 GM BTL (*BKC) 2 SPRAY NASAL (21:00)
[2022-06-06 22:00] VITALS: BP 128/71; PULSE 82; RESP 18; TEMP 36.6; O2SAT 96
[2022-06-07] MEDS: CEPHALEXIN 500 MG CAPSULE PO ×3 (00:16→12:06)
[2022-06-07] MEDS: ALPRAZolam (*CRX) 0.25 MG TABLET PO (00:16)
[2022-06-07 05:48] LABS: Hematocrit 39.7 % (42.0-52.0); Hemoglobin 13.2 g/dL (14.0-18.0); Mean Corpuscular HGB Conc 33.2 g/dl (32-36); Mean Corpuscular Hemoglobin 37.9 pg (26-34); Mean Corpuscular Volume 114.1 fl (80-100); Mean Platelet Volume 8.9 fl (7.4-10.4); Platelet Count Result 120 k/mm3 (150-375); Red Blood Count 3.48 M/mm3 (4.6-6.20); Red Cell Distribution Width 12.1 % (11.5-14.5); White Blood Count 5.5 K/mm3 (4.5-10.0)
[2022-06-07 05:55] VITALS: BP 132/77; PULSE 78; RESP 16; TEMP 36.7; O2SAT 99
[2022-06-07 05:58] LABS: Anion Gap 6 mmol/L (8-16); Blood Urea Nitrogen 13 mg/dL (9-20); Calcium 8.5 mg/dL (8.4-10.2); Carbon Dioxide 27 mmol/L (22-30); Chloride 100 mmol/L (98-107); Estimated CRCL calculation 93 ml/min; Estimated Glomerular Filt Rate > 60; Glucose 116 mg/dL (65-110); Potassium 3.7 mmol/L (3.4-5.0); Sodium 133 mmol/L (137-145)
[2022-06-07 08:55] VITALS: PULSE 70
[2022-06-07] MEDS: SACUBITRIL/VALSARTAN 24-26 MG TABLET 1 TAB PO (08:55)
[2022-06-07] MEDS: METOPROLOL SUCCINATE EXT REL 100 MG TABCR PO (08:55)
[2022-06-07] MEDS: MAGNESIUM OXIDE 400 MG TABLET PO (08:55)
[2022-06-07] MEDS: ASPIRIN 81 MG ENTERIC TABLET PO (08:55)
[2022-06-07] MEDS: ISOSORBIDE MONONITRATE 30 MG TAB.ER.24H PO (08:55)
[2022-06-07] MEDS: ATORVASTATIN 20 MG TABLET PO (08:55)
[2022-06-07] MEDS: ENOXAPARIN 40 MG/0.4 ML SYRINGE SUB-Q (08:58)
[2022-06-07] MEDS: TIMOLOL MALEATE 0.5% OP SOLN 5 ML BOTTLE 1 DROP EACH EYE (08:59)
[2022-06-07] MEDS: BRIMONIDINE TARTRATE 0.2% OP SOLN 5 ML BTL 1 DROP EACH EYE (08:59)
--- NOTE | 2022-06-07 08:59 | PM.DS ---
DS: Admitting Diagnosis Discharge Date 06/07/2022 Admitting Diagnosis Left leg pain and swelling DS: Discharge Diagnosis Discharge Diagnosis (1) Cellulitis of left leg: Code(s): L03.116 - Cellulitis of left lower limb Status: Acute Assessment and Plan: Patient has marked erythema and warmth of the left lower extremity. Will continue empiric antibiotic therapy with Ancef. Given the degree of warmth and tenderness still involved in the patient's lower extremity he benefit from least 48 hours antibiotic therapy. Will repeat CBC this a.m.. 06/06/2022 interval history: Patient with left lower extremity cellulitis and scabs present with pain and swelling being treated with cefazolin, continue to complain of pain and redness, today there is improvement in erythema and pain, denies any fever or chills, continue to monitor 1 more day possibly discharge tomorrw, and further recommendation to follow. (2) Transient hypotension: Code(s): I95.9 - Hypotension, unspecified Status: Acute Assessment and Plan: Blood pressure improved after IV fluid resuscitation. Likely due to infection and relative hypovolemia. The patient now appears euvolemic. Will stop IV fluid hydration. Will resume patient's home Lasix Toprol and Entresto. (3) CHF (congestive heart failure): Qualifiers: Heart failure type: unspecified Heart failure chronicity: chronic Qualified Code(s): I50.9 - Heart failure, unspecified Code(s): I50.9 - Heart failure, unspecified Status: Acute Assessment and Plan: The patient was initially hypotensive but and hypotension has resolved. The patient now appears euvolemic. Will stop additional IV fluids to avoid fluid overload. Will resume patient's home Entresto, metoprolol and Lasix. DS: Summary Hospital Course Reason for hospitalization: Left leg pain and swelling Narrative: 87-year-old male with a past medical history of glaucoma, CHF, and hypertension who presented to the ER with left lower extremity pain and swelling.? The patient reports that he used to frequently good cellulitis of his lower extremities.? However he he usually puts moisturizer on his legs and put the loose covering over his legs to help moisturizer sink in.? Recently he had not been doing so as consistently.? He reports that as a result of this he began having increased discomfort in his left leg to her 3 days ago.? It was accompanied by some increased swelling.? He states that he does not know if his leg is more red than usual.? But he began having increased cramping in his leg on the morning of the .? As the day progressed she had increased swelling and pain.? It became painful for him to walk on the leg.? He noted that when he went across his legs during the day he rubbed his right foot across his ruby and that subsequently opened an area on his leg in it began draining.? He denied having any fevers or chills.? He did note that he was having some lightheadedness when he would stand.? When he arrived to the ER he was found to be hypotensive and mildly tachycardic.? He received 2 L of IV fluid bolus with resolution of hypotension.? He reports that he feels like he has been eating and drinking without difficulty.? He denies any chest pain or shortness of breath.? He has not had any cough or congestion.? He denies any recent ill contacts. Hospital Course: Patient has marked erythema and warmth of the left lower extremity.? Will continue empiric antibiotic therapy with Ancef.? Given the degree of warmth and tenderness still involved in the patient's lower extremity he benefit from least 48 hours antibiotic therapy.? Will repeat CBC this a.m.. Patient with left lower extremity cellulitis and scabs present with pain and swelling being treated with cefazolin, continue to complain of pain and redness, today there is improvement in erythema and pain, denies any fever or chills, continue to monitor 1 more day possibl
== END 2022-06-07 12:50 | disposition home or self-care (01) | DRG 603 ==
LOC: ANHED 16:37 → ANH3MED 20:26
PROVIDERS: Emergency Medicine; Internal Medicine; Admitting Provider Internal Medicine; Emergency Provider Emergency Medicine; PCP Family Medicine; Visit Provider Family Medicine
DX: L03.116 Cellulitis of left lower limb (principal); I11.0 Hypertensive heart disease with heart failure; I50.9 Heart failure, unspecified; I95.9 Hypotension, unspecified; I25.10 Atherosclerotic heart disease of native coronary artery without angina pectoris; I87.8 Other specified disorders of veins; H40.9 Unspecified glaucoma; E78.5 Hyperlipidemia, unspecified; Z87.891 Personal history of nicotine dependence
CPT/HCPCS: 36415; 80048; 81001; 83605; 83735; 85025; 85027; 85055; 85610; 85730; 93005; 93971; 96361; 96365; 96366; 96372; 99285; A9270; G0378; J0690; J1650; J7030

== ENCOUNTER 2024-01-10 14:11 | Emergency (ER) | payer MEDICARE, SELFPAY ==
--- NOTE | ~2024-01-10 | CT_ITS ---
CT brain wo con Ordering provider: Brayden Rubio MD History: 88 years Male with . Head injury . Comparison: None. Technique: CT of the head without contrast. Radiation reduction technique utilized. The dose-length p roduct was 605.33 mGy-cm. FINDINGS: BRAIN PARENCHYMA AND CSF SPACES: Mild leukoaraiosis and diffuse cortical atrophy. Mild atheromatous d isease. No midline shift, mass effect or hemorrhage. The brain parenchyma and CSF spaces are otherwi se normal. VISUALIZED PARANASAL SINUSES: Well aerated. MASTOIDS: Well aerated. BONES: The bones appear intact. SOFT TISSUES: Visualized nasopharynx is normal. Superficial soft tissues are normal. band is seen around the left eye globe IMPRESSION: No acute intracranial findings. Reviewed, dictated and finalized at location A. EMENT MANAGER
--- NOTE | ~2024-01-10 | XR_ITS ---
EXAMINATION: XR forearm RT 2V DATE: 01/10/2024 17:06 INDICATION: Right forearm laceration. TECHNIQUE: 2 views of right forearm were obtained. COMPARISON: None. FINDINGS: Bone alignment is normal. No fracture. There is mild elbow joint osteoarthritis. No elbow j oint effusion. IMPRESSION: 1. No fracture or radiopaque foreign body. Reviewed, dictated and finalized at location A. FORMER OPERATOR
--- NOTE | ~2024-01-10 | CT_ITS ---
CT cervical spine wo con Ordering provider: Brayden Rubio MD History: . Head trauma . Comparison: None. Technique: CT of the cervical spine was performed without contrast. Sagittal and coronal reformatted images were also obtained and reviewed. Automated exposure control and iterative reconstruction lashaun hnique were employed. The dose-length product was 484.85 mGy-cm. FINDINGS: VERTEBRAE: No subluxation or acute fracture. The occipital condyles are intact. Fusion is seen at th e level of C5-C6. DISC SPACES: Narrowing of the disc C3-C4, C4-C5, C5-C6 and C6-C7. Multilevel facet joint disease. Mul tilevel uncovertebral joint osteoarthritic changes. Narrowing of the right foramen at the level of C3 -C4 PARASPINOUS SOFT TISSUES: Carotid calcifications. IMPRESSION: No acute osseous abnormality cervical spine. Multilevel degenerative disc disease. Reviewed, dictated and finalized at location A. PREPARATION SUPERVISOR
[2024-01-10 14:13] VITALS: BP 169/94; PULSE 96; RESP 16; TEMP 36.6; O2SAT 100
--- NOTE | 2024-01-10 17:15 | ED_ITS ---
HPI - Fall General Chief Complaint: Fall Stated Complaint: skin tear Time Seen by Provider: 01/10/24 15:49 Source: patient Mode of arrival: EMS Limitations: no limitations History of Present Illness HPI Narrative: This is an 88-year-old male, with history of AFib on Eliquis, brought in by EMS from his alf after a fall. The patient states he was attempting to stand, when his wheelchair rolled from underneath him. He states he struck his right arm or during the fall resulting in a large skin tear and laceration. He states he hit his head but did not lose consciousness. He denies chest pain, shortness of breath, lightheadedness, nausea or vomiting. Family members at bedside also note that he has had increased frequency of urination recently. He has no other complaints at this time. Related Data Home Medications Medication Instructions Recorded Confirmed isosorbide mononitrate 30 mg 30 mg PO DAILY 02/02/19 06/03/22 tablet,extended release 24 hr loratadine 10 mg tablet (Claritin) 10 mg PO DAILY PRN Allergic 08/13/20 06/03/22 Symptoms furosemide 20 mg tablet 20 mg PO BID 09/22/21 06/03/22 aspirin 81 mg tablet,delayed 81 mg PO DAILY 09/23/21 06/03/22 release atorvastatin 20 mg tablet 20 mg PO DAILY 09/23/21 06/03/22 diphenhydramine 25 2 tablet PO HS 09/23/21 06/03/22 mg-acetaminophen 500 mg tablet (Tylenol PM Extra Strength) escitalopram oxalate 10 mg tablet 10 mg PO DAILY 09/23/21 06/03/22 (Lexapro) fluticasone propionate 50 2 spray intranasal HS 09/23/21 06/03/22 mcg/actuation nasal spray,suspension latanoprost 0.005 % eye drops 1 drp LEFT EYE QPM 09/23/21 06/03/22 sacubitril 24 mg-valsartan 26 mg 1 tablet PO BID 09/23/21 06/03/22 tablet (Entresto) brimonidine 0.2 %-timolol 0.5 % 1 drp EACH EYE Q12H 06/03/22 06/03/22 eye drops (Combigan) metoprolol succinate 100 mg 100 mg PO Q12H 06/03/22 06/03/22 tablet,extended release 24 hr (Toprol XL) Allergies Allergy/AdvReac Type Severity Reaction Status Date / Time No Known Allergies Allergy Verified 01/10/24 19:35 Review of Systems Review of Systems: All systems reviewed & are unremarkable except as noted in HPI and below PMFSH Past Medical History Medical History Coronary artery disease COVID-19 vaccine series completed (~03/2020) Essential hypertension Glaucoma Hyperlipidemia Surgical History Surgical History History of cardiac catheterization (~04/2019) with old prior occlusions noted, not a candidate for stent at that time per patient report History of detached retina repair left eye History of tonsillectomy and adenoidectomy Family History Family History Father Cerebral aneurysm Mother Heart disease Social History Social History (Updated 06/04/22 @ 23:08 by Mariella Serrano DO) Social History: He has been since 9. He and his living Reynaldo caballero. He is retired from [employer]. They have 5 biological children and adopted 2 of their grand children. He usually drinks 3-4 mixed drinks a night. He is independent in activities of daily living and still drives. Code Status: DNR/DNI (I personally had a discussion with the patient regarding goals of care and code status. He verbalized that he would be okay with full treatment until the event of cardiac arrest. If that were to occur he would not want CPR or intubation) Smoking packs per day: 1 Smoking cigarettes per day: 20.0 Years smoked: 5 Smoking pack-years: 5.00 Smoking status: Former smoker Tobacco type: cigarettes Second hand tobacco smoke exposure: No Alcohol intake: current Drinks per week: 3 Substance use: never Lack of Transportation: No Lack of Food: Never True Current Housing: I Have Housing Concerned About Future Housing: No Difficulty Paying Gas/Electric Bills: No Difficulty Paying for Meds: No Currently Unemployed: No Education: Decline to Answer Difficulty w/ Childcare or Family Care: No Gender identity (if verbalized by the patient): Male Sexual Orientation (if Verbalized by the Patient): Straight or Heterosexual Spiritual care concerns: No Exam Narrative: GENERAL: Well-developed, well-nourished, and in no acute distress. HEAD: Normocephalic, there is a hematoma noted to the posterior scalp measuring approximately 5 cm in diameter. EYES: PERRLA and EOMI. NECK: Supple. No midline spine tenderness to palpation, step-off or crepitus CHEST: Clear to auscultation. No respiratory distress. No wheezes rales or rhonchi HEART: Regular rate and rhythm. No murmur heard. Normal peripheral pulses. ABDOMEN: Soft, nontender, nondistended, normal active bowel sounds. EXTREMITIES: Normal range of motion. No edema. SKIN: There is a 3 cm laceration noted to the posterior aspect of the right forearm with a large surrounding skin tear measuring approximately the 10 x 15 cm. There is a 10 cm skin tear noted at the anterior aspect of the left elbow. There is a skin tear noted at the right hip with surrounding erythema and induration CT consistent with cellulitis. Skin otherwise warm, dry, no rash. NEURO: Alert and oriented x3. No focal deficit. Moving all 4 limbs spontaneously PSYCH: Normal mood and affect. Course Course Emergency Course: 19:38 - CT head negative for intracranial hemorrhage or skull fracture. CT C- spine negative for fracture or dislocation. X-ray of the arm not concerning for fracture dislocation. The patient's laceration was repaired. Please see procedure note. Will discharge with Keflex for UTI and cellulitis of the right hip. the patient's family states they are in process of arranging placement for the patient. I discussed the findings and recommendations with The patient and his family. Discussed return and emergency precautions including signs/symptoms of ACS, respiratory distress and wound infection. The patient and his family voiced understanding and agreement with the plan. All questions answered to their satisfaction. 21:50 - Multiple efforts were made by nursing staff to assist in transport of the patient back to his facility. The patient reportedly does not meet criteria for ambulance transport. The patient's daughter and spouse are not comfortable with taking the patient in their own vehicle. On further discussion the patient lives at an independent care facility not a alf. Admission for placement was offered to the patient and his family who politely declined. Vital Signs Vital signs: Vital Signs Temperature 97.9 F 01/10/24 14:13 Pulse Rate 96 01/10/24 14:13 Respiratory Rate 16 01/10/24 14:13 Blood Pressure 169/94 H 01/10/24 14:13 Pulse Oximetry 100 01/10/24 14:13 Oxygen Delivery Room Air 01/10/24 14:13 Temperature 97.6 F 01/10/24 21:51 Pulse Rate 89 01/10/24 21:51 Respiratory Rate 15 01/10/24 21:51 Blood Pressure 120/62 01/10/24 21:51 Pulse Oximetry 100 01/10/24 21:51 Oxygen Delivery Room Air 01/10/24 14:13 Procedures Laceration Laceration 1: Date: 01/10/24 Time: 16:15 Site: upper extremity Side (If applicable): right Size (cm): 3 Description: irregular and other (skin tear involved) Depth: simple, single layer Local Anesthetic: lidocaine 1% and with epi Amount of anesthesia used (mL): 6 Pre-repair: wound explored, irrigated and minor debridement ====== Skin Level ====== Skin layer closed with: nylon Size (cm): 3-0 Number of sutures: 5 Technique: simple, interrupted (4) and horizontal mattress (1) ====== Subcutaneous Layer ====== ====== Muscle Layer ====== ====== Tendon Layer ====== MDM - Fall MDM Narrative Medical decision making narrative: plan: Imaging, pain control, laceration repair, reassess Differential Diagnosis Differential diagnosis: Likely other ( skull fracture, intracranial hemorrhage, cervical spine fracture, forearm fracture, laceration, skin tear, UTI, other) Lab Data Labs: Lab Results 01/10/24 Range/Units 17:16 Urine Color Dark yellow (Yellow) Urine Appearance Clear (Clear) Urine pH 7.5 (5.0-9.0) Ur Specific [place] 1.020 (1.001-1.035) Urine Protein 1+ H (Negative) mg/dL Urine Glucose (UA) Negative (Negative) mg/dL Urine Ketones Trace H (Negative) mg/dL Ur Blood (Man) 1+ H (Negative) Urine Nitrate Negative (Negative) Urine Bilirubin Negative (Negative) Urine Urobilinogen 1.0 (<2.0) mg/dL Leukocyte Esterase Rfl 1+ H (Negative) EARL/UL Urine RBC 21-50 H (0-2) /hpf Urine WBC 6-10 H (0-3) /hpf Ur Squamous Epith Cells None seen (Few) /hpf Urine Bacteria Rare /hpf Urine Casts 0-2 Discharge Plan Discharge Clinical Impression: Laceration, Skin tear of left upper extremity, Hematoma, Acute UTI Skin tear of forearm without complication Qualifiers: Encounter type: initial encounter Laterality: right Qualified Code(s): S51.811A - Laceration without foreign body of right forearm, initial encounter Cellulitis Qualifiers: Site of cellulitis: trunk Site of cellulitis of trunk: unspecified site Qualified Code(s): L03.319 - Cellulitis of trunk, unspecified Patient Disposition: Home, Self-Care Condition: Stable Instructions: Antibiotic Form Additional Instructions: You were seen in the emergency department. Urinalysis showed changes consistent with urinary tract infection. Scan of the head and neck was not concerning for skull fracture, intracranial hemorrhage or cervical spine fracture. x-ray of your arm was not concerning for fracture or dislocation. I recommend following up with your primary care doctor in 7-10 days to have the sutures in the arm removed. I recommend antibiotics. If you develop fevers with severe abdominal pain, persistent vomiting, the arm appears blue/cold, or if you have other emergent concerns for life, limb, or eyesight, return to the emergency department. Patient Language: Faroese Prescriptions: New cephalexin 500 mg tablet 500 mg PO Q6H 7 Days Qty: 28 0RF No Action isosorbide mononitrate 30 mg Tablet Extended Release 24 Hr 30 mg PO DAILY loratadine [Claritin] 10 mg tablet 10 mg PO DAILY PRN (Reason: Allergic Symptoms) furosemide 20 mg Tablet 20 mg PO BID aspirin 81 mg Tablet,Delayed Release (Dr/Ec) 81 mg PO DAILY atorvastatin 20 mg Tablet 20 mg PO DAILY Entresto 24-26 mg Tablet 1 tablet PO BID fluticasone propionate 50 mcg/actuation [place],Suspension 2 spray INTRANASAL HS escitalopram oxalate [Lexapro] 10 mg Tablet 10 mg PO DAILY Hold Instructions: until seen by Dr. Bucio Rx Instructions: HOLD UNTIL FOLLOW UP WITH DR. BUCIO latanoprost 0.005 % Drops 1 drp LEFT EYE QPM diphenhydramine-acetaminophen [Tylenol PM Extra Strength] 25-500 mg Tablet 2 tablet PO HS alprazolam 0.25 mg Tablet 0.25 mg PO HS PRN (Reason: Anxiety) Qty: 12 0RF magnesium oxide 400 mg (241.3 mg magnesium) Tablet 400 mg PO QAM Qty: 30 0RF metoprolol succinate [Toprol XL] 100 mg Tablet Extended Release 24 Hr 100 mg PO Q12H brimonidine-timolol [Combigan] 0.2-0.5 % Drops 1 drp EACH EYE Q12H cephalexin 500 mg Capsule 500 mg PO Q6HR Qty: 20 0RF Follow-up/Referrals: Lauren,Antelmo Sotelo MD [Primary Care Provider] - 1 Week Time of Disposition: 19:38
[2024-01-10 17:46] LABS: Add Urine Microscopic? YES; Appearance Urine Clear (Clear); Bacteria Urine Rare /hpf; Bilirubin Urine Negative (Negative); Blood Urine 1+ (Negative); Color Urine Dark Yellow (Yellow); Glucose Urine UA Negative (Negative); Ketones Urine Trace mg/dL (Negative); Leukocyte Esterase Ur 1+ LEU/UL (Negative); Nitrate Urine Negative (Negative); Non Pathogenic Casts 0-2; Protein Urine 1+ mg/dL (Negative); RBC Urine 21-50 /hpf (0-2); Squamous Epithelial Cell Urine None Seen /hpf (Few); pH Urine 7.5 (5.0-9.0)
[2024-01-10] MEDS: CEPHALEXIN 500 MG CAPSULE PO (19:36)
[2024-01-10 21:51] VITALS: BP 120/62; PULSE 89; RESP 15; TEMP 36.4; O2SAT 100
== END 2024-01-10 22:15 | disposition home or self-care (01) ==
PROVIDERS: Emergency Provider Preventive Medicine Aerospace Medicine; PCP Family Medicine
DX: S51.811A Laceration without foreign body of right forearm, initial encounter (principal); S51.012A Laceration without foreign body of left elbow, initial encounter; S71.011A Laceration without foreign body, right hip, initial encounter; L03.115 Cellulitis of right lower limb; N39.0 Urinary tract infection, site not specified; I48.91 Unspecified atrial fibrillation; I25.10 Atherosclerotic heart disease of native coronary artery without angina pectoris; I10 Essential (primary) hypertension; E78.5 Hyperlipidemia, unspecified; H40.9 Unspecified glaucoma; Z66 Do not resuscitate; Z87.891 Personal history of nicotine dependence; Z79.82 Long term (current) use of aspirin; Z79.899 Other long term (current) drug therapy; Z79.01 Long term (current) use of anticoagulants; M50.31 Other cervical disc degeneration, high cervical region; W05.0XXA Fall from non-moving wheelchair, initial encounter
CPT/HCPCS: 12002; 70450; 72125; 73090; 81001; 87086; 99284; A9270

== ENCOUNTER 2024-06-30 18:09 | Inpatient (IN) | payer MEDICARE, SELFPAY ==
[2024-06-30] VITALS (63 sets, daily range): BP systolic 49–125; BP diastolic 36–80; PULSE 104–171; RESP 11–33; TEMP 36.8; O2SAT 90–98
--- NOTE | ~2024-06-30 | XR_ITS ---
CHEST RADIOGRAPH CLINICAL HISTORY: assess degree of possible heart failure/decompensa . COMPARISON: 09/12/2021 TECHNIQUE: Single portable view of the chest. FINDINGS The cardiomediastinal silhouette is enlarged. Nasogastric tube in position. Elevation of the left hemidiaphragm with adjacent compressive atelectasis. Increased interstitial markings are identified bilaterally, findings suggesting mild pulmonary vascul ar congestion. The lungs are otherwise clear. IMPRESSION: Mild pulmonary vascular congestion, without focal infiltrate or effusion. Reviewed, dictated and finalized at location A.
--- NOTE | ~2024-06-30 | XR_ITS ---
Portable chest x-ray Comparison: 07/02/2024 Clinical History: Respiratory failure Findings: Endotracheal tube, NG tube, and right IJ line remain in place. Probable mild central conge stive change. Probable partial left lower lobe atelectatic change. Cardiomediastinal silhouette is s table. Bones and soft tissues are unremarkable. Impression: Mild central congestive change and probable partial left lower lobe atelectasis. Support tubes, as above. Reviewed, dictated and finalized at location . Impression: Mild central congestive change and probable partial left lower lobe atelectasis . Support tubes, as above.
--- NOTE | ~2024-06-30 | XR_ITS ---
Portable chest x-ray Comparison: 07/01/2024 Clinical History: Respiratory failure Findings: Endotracheal tube, NG tube, and right IJ line are in place. Small left pleural effusion pr esent with left basilar airspace disease. Right lung clear. Cardiomediastinal silhouette is stable. Bones and soft tissues are unremarkable. Impression: Small left pleural effusion with left basilar atelectasis/edema versus pneumonia. Support tubes, as above. Reviewed, dictated and finalized at location . Impression: Small left pleural effusion with left basilar atelectasis/edema versus pneumoni a. Support tubes, as above.
--- NOTE | ~2024-06-30 | XR_ITS ---
XR abdomen gastric tube insert Ordering provider: Hemant Martinez MD History: . NG placement . Comparison: None. FINDINGS/impression: Nasogastric tube is seen extending with the tip seen over the upper abdomen. Reviewed, dictated and finalized at location A.
--- NOTE | ~2024-06-30 | XR_ITS ---
CHEST RADIOGRAPH CLINICAL HISTORY: Post ETT adjustment . COMPARISON: 07/01/2024 approximately 4 hours earlier TECHNIQUE: Single portable view of the chest. FINDINGS Right internal jugular central venous catheter tip projecting over the proximal right atrium. Endotracheal tube is identified with its tip projecting approximately 3.6 cm above the base of the ca mike. Nasogastric tube identified with its tip extending below the left hemidiaphragm, presumably within th e stomach. The remainder of the cardiomediastinal silhouette is enlarged, and otherwise unremarkable. Blunting of the left costophrenic sulcus suggesting a small left-sided pleural effusion. Increased interstitial markings are identified bilaterally, findings suggesting mild pulmonary vascul ar congestion. Consolidation of the left pulmonary hilum with air bronchograms suggesting a left hilar infiltrate. The remainder of the lungs are clear. IMPRESSION: Left hilar infiltrate is suspected, with a small left-sided pleural effusion. Mild pulmonary vascular congestion persists. Supportive lines and tubes in good position. Reviewed, dictated and finalized at location A.
--- NOTE | ~2024-06-30 | CT_ITS ---
CT abdomen pelvis w con Ordering provider: [facility] History: 89 years Male with . abd pain . Comparison: None. Technique: CT abdomen and pelvis with IV and without oral contrast. Automated exposure control and it erative reconstruction technique were employed. The dose-length product was 1407.19 mGy-cm. 100 mL Om nipaque 350 was given IV. Findings: VISUALIZED LOWER CHEST: Bilateral atelectatic changes in the lung bases with left pleural effusion. C ardiomegaly. UPPER ABDOMINAL ORGANS: Liver: Normal. Gallbladder: Distended with no stones. Spleen: Normal. Stomach/duodenum: Normal. Nasogastric tube. Pancreas: Slightly atrophic pancreas. Adrenals: Normal. Kidneys: Normal. PELVIC ORGANS: The bladder shows slightly thickened wall. Enlarged prostate. BOWEL AND MESENTERY: Colon: Area is seen in the wall of the cecum area with minimal thickening in the wall in the area. Di fferential include infection with gas producing bacteria, ischemia and connective-tissue disease. Fur ther evaluation and follow-up advised.. No evidence of diverticulitis. The appendix is not demonstrated. Small Bowel: Dilated small bowel loops are seen in the pelvis suggestive of early or partial obstruct ion. The transition zone is seen in the right lower quadrant. Peritoneum/mesentery: No free air. Minimal free fluid seen around the liver.. No mesenteric lymphaden opathy. 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 No retroperitoneal lymphadenop athy. MUSCULOSKELETAL: Superficial soft tissues: Bilateral fat containing inguinal hernias. Minimal fluid is seen in the rig ht side hernia. Otherwise, The superficial soft tissues are normal. Bones: Degenerative changes of the spine. Severe left hip osteoarthritic changes. Bilateral sacroilii tis. Multilevel degenerative disc disease. IMPRESSION: 1. Air seen in the wall of the cecum and ascending colon with thickening in the ascending colon. Dif ferential include infection with gas-forming organism versus ischemia versus connective tissue diseas e. Clinical correlation and further evaluation advised. No free air. Minimal free fluid seen around t he liver. 2. Dilated small bowel loops in the distal ileum with transition zone seen in the terminal ileum are a. Follow-up advised. 3. Bilateral basal atelectasis with left pleural effusion. 4. Cardiomegaly. 5. Slightly thickened wall of the bladder. Evaluation for cystitis advised Dr. Puckett was notified with the result of the patient at 8:40 PM on June 30, 2024. Reviewed, dictated and finalized at location A. IMPRESSION: 1. Air seen in the wall of the cecum and ascending colon with thickening in th e ascending colon. Differential include infection with gas-forming organism chong jerrica ischemia versus connective tissue disease. Clinical correlation and further evaluation advised. No free air. Minimal free fluid seen around the liver. 2. Dilated small bowel loops in the distal ileum with transition zone seen in the terminal ileum area. Follow-up advised. 3. Bilateral basal atelectasis with left pleural effusion. 4. Cardiomegaly. 5. Slightly thickened wall of the bladder. Evaluation for cystitis advised Dr. Puckett was notified with the result of the patient at 8:40 PM on June 30.
--- NOTE | ~2024-06-30 | XR_ITS ---
CHEST RADIOGRAPH CLINICAL HISTORY: intubation . COMPARISON: 06/2506/25/2024 at 10:00 PM TECHNIQUE: Single portable view of the chest. FINDINGS Endotracheal tube is now identified with its tip approximately 1.5 cm above the base of the dhruv fo r which withdrawal of approximately 3 cm is suggested for optimal radiographic placement. Orogastric tube is present extending below the left hemidiaphragm. Right internal jugular central venous catheter identified with its tip projecting over the right atri um. The remainder of the cardiomediastinal silhouette is enlarged, unchanged and otherwise unremarkable. Bibasilar atelectasis is identified. Increased interstitial markings are identified bilaterally, findings suggesting mild pulmonary vascul ar congestion. The lungs are otherwise clear IMPRESSION: Mild pulmonary vascular congestion with bibasilar atelectasis. Withdrawal of the endotracheal tube approximately 3 cm is suggested for optimal radiographic placemen t. Remaining support catheters in good position. Reviewed, dictated and finalized at location A. IMPRESSION: Mild pulmonary vascular congestion with bibasilar atelectasis. Withdrawal of the endotracheal tube approximately 3 cm is suggested for optimal radiographic placement. Remaining support catheters in good position.
--- NOTE | ~2024-06-30 | XR_ITS ---
Portable chest x-ray Comparison: 07/03/2024 Clinical History: Respiratory failure Findings: Endotracheal tube, NG tube, and right IJ line are in place. Probable small pleural effusio ns with mild bibasilar pulmonary edema. Cardiomediastinal silhouette is stable. Bones and soft tissu es are unremarkable. Impression: Small bilateral pleural effusions with bibasilar pulmonary edema. Support tubes, as above. Reviewed, dictated and finalized at location . Impression: Small bilateral pleural effusions with bibasilar pulmonary edema. Support tubes, as above.
--- NOTE | 2024-06-30 18:27 | ECG_ITS ---
Test Date: 2024-06-30 18:38:06 Measurements Intervals [place] Rate: 156 P: 0 RI: 0 QRS: 101 QRSD: 126 T: -9 QT: 286 QTc: 462 Interpretive Statements ATRIAL FIBRILLATION WITH RAPID VENTRICULAR RESPONSE RIGHT AXIS DEVIATION [QRS AXIS > 100] RIGHT BUNDLE BRANCH BLOCK [120+ ms QRS DURATION, UPRIGHT V1, 40+ ms S IN I/aVL/V4/V5/V6] CRITICAL TEST RESULT No previous ECG available for comparison Electronically Signed On 06-30-2024 20:52:50 CDT by Earl Silveira M.D.
[2024-06-30 18:46] LABS: Basophils Absolute Auto 0.1 K/mm3 (0.0-0.1); Basophils Percent Auto 0.2 % (0.2-1.2); Eosinophils Percent Auto 0.2 % (0-4.4); Hematocrit 43.9 % (42.0-52.0); Hemoglobin 13.9 g/dL (14.0-18.0); Immature Granulocyte Percent A 0.5 % (0-0.5); Lymphocytes Absolute Auto 0.61 K/mm3 (0.9-3.2); Mean Corpuscular HGB Conc 31.7 g/dl (32-36); Mean Corpuscular Hemoglobin 31.2 pg (26-34); Mean Corpuscular Volume 98.7 fl (80-100); Mean Platelet Volume 8.4 fl (7.4-10.4); Monocytes Absolute Auto 0.4 K/mm3 (0.1-0.6); Monocytes Percent Auto 2.1 % (2.6-8.5); Platelet Count Result 194 k/mm3 (150-375); Red Blood Count 4.45 M/mm3 (4.6-6.20); Red Cell Distribution Width 13.6 % (11.5-14.5); White Blood Count 20.2 K/mm3 (4.5-10.0)
--- NOTE | 2024-06-30 18:48 | ED_ITS ---
HPI - Abdominal Pain General Chief Complaint: Abdominal Pain <Hemant Martinez MD - Last Filed: 06/30/24 20:04> Stated Complaint: RUQ pain/Afib RVR <Hemant Martinez MD - Last Filed: 06/30/24 20:04> Time Seen by Provider: 06/30/24 18:41 <Hemant Martinez MD - Last Filed: 06/30/24 20:04> Source: patient <Hemant Martinez MD - Last Filed: 06/30/24 20:04> Mode of arrival: EMS <Hemant Martinez MD - Last Filed: 06/30/24 20:04> Limitations: no limitations <Hemant Martinez MD - Last Filed: 06/30/24 20:04> History of Present Illness HPI narrative: 89 years old white male came to the ED by ambulance complaining of abdominal pain and frequent vomiting started early today. Patient did not eat breakfast or lunch today. Patient is telling me that he had similar symptoms 2 weeks ago, went [facility] and was discharged without specific diagnosis. History of atrial fibrillation on Eliquis, coronary artery disease, hypertension. Patient denied history of abdominal surgery. Patient is DNR. < Hemant Martinez MD - Last Filed: 06/30/24 20:04> Related Data Home Medications: Home Medications ?Medication ?Instructions ?Recorded ?Confirmed ?Last Taken ?Type furosemide 20 mg tablet 20 mg PO DAILY 09/22/21 07/01/24 06/03/22 09:00 History atorvastatin 20 mg tablet 20 mg PO DAILY 09/23/21 07/01/24 06/03/22 History diphenhydramine 25 2 tablet PO HS PRN sleep 09/23/21 07/01/24 06/02/22 History mg-acetaminophen 500 mg tablet (Tylenol PM Extra Strength) fluticasone propionate 50 1 spray intranasal HS 09/23/21 07/01/24 06/02/22 History mcg/actuation nasal spray,suspension latanoprost 0.005 % eye drops 1 drp LEFT EYE QPM 09/23/21 07/01/24 06/02/22 History sacubitril 24 mg-valsartan 26 mg 0.5 tablet PO BID 09/23/21 07/01/24 06/03/22 09:00 History tablet (Entresto) acetaminophen 325 mg capsule 650 mg PO BID PRN pain (scale 07/01/24 07/01/24 Unknown History score 1-3) apixaban 2.5 mg tablet (Eliquis) 2.5 mg PO BID 07/01/24 07/01/24 Unknown History clopidogrel 75 mg tablet 75 mg PO DAILY 07/01/24 07/01/24 Unknown History ergocalciferol (vitamin D2) 1,250 1,250 mcg PO WEEKLY 07/01/24 07/01/24 06/25/24 History mcg (50,000 unit) capsule folic acid 1 mg tablet 1 mg PO DAILY 07/01/24 07/01/24 Unknown History guaifenesin 100 mg/5 mL oral liquid 200 mg PO Q4H PRN cough 07/01/24 07/01/24 Unknown History levothyroxine 25 mcg capsule 25 mcg PO DAILY 07/01/24 07/01/24 Unknown History metoprolol succinate 25 mg 12.5 mg PO DAILY 07/01/24 07/01/24 Unknown History tablet,extended release 24 hr mirtazapine 15 mg tablet 15 mg PO DAILY 07/01/24 07/01/24 Unknown History ondansetron 4 mg disintegrating 4 mg PO Q6H PRN nausea and vomiting 07/01/24 07/01/24 Unknown History tablet pantoprazole 40 mg tablet,delayed 40 mg PO BID 07/01/24 07/01/24 Unknown History release polyethylene glycol 3350 17 17 g PO DAILY PRN constipation 07/01/24 07/01/24 Unknown History gram/dose oral powder (Miralax) potassium chloride 20 mEq 20 meq PO DAILY 07/01/24 07/01/24 Unknown History tablet,extended release(part/cryst) (Klor-Con M) sodium chloride 0.65 % nasal spray 1 spray intranasal Q4H PRN nasal 07/01/24 07/01/24 Unknown History aerosol (Saline Nasal) congestion spironolactone 25 mg tablet 12.5 mg PO DAILY 07/01/24 07/01/24 Unknown History (Aldactone) tramadol 50 mg tablet 50 mg PO Q6H PRN pain (scale score 07/01/24 07/01/24 Unknown History 7-10) triamcinolone acetonide 0.1 % 1 applic topical BID PRN rash 07/01/24 07/01/24 Unknown History topical ointment <Hemant Martinez MD - Last Filed: 06/30/24 20:04> Allergies/Adverse Reactions: Allergies Allergy/AdvReac Type Severity Reaction Status Date / Time No Known Allergies Allergy Verified 07/01/24 05:18 <Hemant Martinez MD - Last Filed: 06/30/24 20:04> Review of Systems 2 Review of Systems: All systems reviewed & are unremarkable except as noted in HPI and below <Hemant Martinez MD - Last Filed: 06/30/24 20:04> [facility] Past Medical History Medical History: Medical History Chronic anticoagulation Atrial fibrillation Chronic hyponatremia COVID-19 vaccine series completed (~03/2020) Coronary artery disease Glaucoma Hyperlipidemia Essential hypertension <Hemant Martinez MD - Last Filed: 06/30/24 20:04> Surgical History Surgical History: Surgical History History of detached retina repair left eye History of tonsillectomy and adenoidectomy History of cardiac catheterization (~04/2019) with old prior occlusions noted, not a candidate for stent at that time per patient report <Hemant Martinez MD - Last Filed: 06/30/24 20:04> Family History Family History: Family History Father Cerebral aneurysm Mother Heart disease <Hemant Martinez MD - Last Filed: 06/30/24 20:04> Social History Social History: Social History Social History: He has been since 1957. He and his live in [place]. He is now residing at [place] for indeterminate amount of time. He is retired from [employer]. They have 5 biological children and adopted 2 of their grand children. He usually drinks 3-4 mixed drinks a night. Code Status: DNR/DNI Smoking packs per day: 1 Smoking cigarettes per day: 20.0 Years smoked: 5 Smoking pack-years: 5.00 Smoking status: Former smoker Tobacco type: cigarettes Second hand tobacco smoke exposure: No Alcohol intake: current Drinks per week: 21 Substance use: never Lack of Transportation: No Lack of Food: Never True Current Housing: I Have Housing Concerned About Future Housing: No Difficulty Paying Gas/Electric Bills: No Difficulty Paying for Meds: No Currently Unemployed: No Education: Decline to Answer Difficulty w/ Childcare or Family Care: No Gender identity (if verbalized by the patient): Male Sexual Orientation (if Verbalized by the Patient): Straight or Heterosexual Spiritual care concerns: No <Hemant Martinez MD - Last Filed: 06/30/24 20:04> Exam 2 Narrative: General appearance: Well-developed, well-nourished Skin: Normal color Head: Normocephalic, nontraumatic Eyes: Clear conjunctiva ENT: Oropharynx normal, ears normal, nose normal Neck: Supple, nontender Chest and respiratory: Airway patent, no respiratory distress, no accessory muscle use Heart: Tachycardia, irregular irregularity Abdomen: Distended, diffusely tender, quite bowel sounds Vascular: Normal peripheral pulses, normal capillary refill. Musculoskeletal: Normal range of motion, nontender back Neurologic: Alert and oriented ?3, [employer] is normal as tested, no gross motor deficit <Hemant Martinez MD - Last Filed: 06/30/24 20:04> Course Course Emergency Course: Patient signed out to me pending rest of work up to include labs and imaging. He has a marked leukocytosis greater than 20. Patient's hyponatremia has been chronic. Remains in afib RVR rate 120s-130s. Borderline hypotensive BP. Ordered 2.5mg metoprolol but only able to give 1mL before becoming too hypotensive. Already received 1 push of diltiazem. Mild hypomanesemia. Repletion ordered. Phenylephrine push was given for blood pressure. Amiodarone was ordered but before given patient's heart rate was more appropriate, 110s. Radiologist called regarding CT findings. Based on the findings on CT, discussed with general surgeon. Patient had been a DNR/DNI upon initial discussion with Dr. Martinez but, through conversation, he would be amenable to intubation to undergo surgical intervention. I did explain to the family that patient is condition is very serious. Patient remains hypotensive although mentating appropriately and without complaint. Patient likely to require a central line. We discussed this with family and patient and he was amenable. Anesthesia did come to assess the patient preoperatively. I was informed by the [employer] that anesthesiologist agreed to place central line pre- operatively in preop. Given the volume of patient's in the emergency department, I do feel that this is reasonable to expedite patient's arrival to preop to continue high level of care and be able to continue to provide care to several other critical patients in the ED. Multiple family members arriving and updated. == Critical Care: 1 or more vital organ systems impaired with a high probability of imminent or life-threatening deterioration in the patient's condition requiring frequent personal assessment and manipulation of the patient's condition. This included time spent evaluating the patient, speaking with EMS pre-hospital personnel and family, reviewing/interpreting laboratory/imaging studies, discussing the case with consultants or admitting teams, retrieving data and reviewing charts, monitoring for decompensation, documenting the visit, and performing bundled procedures exclusive of separately billed procedures. <Tejal Puckett MD - Last Filed: 07/01/24 18:24> Vital Signs Vital signs: Vital Signs Pulse Rate 146 H 06/30/24 18:09 Respiratory Rate 17 06/30/24 18:09 Blood Pressure 125/73 06/30/24 18:09 Pulse Oximetry 98 06/30/24 18:09 Temperature 98.5 F 07/01/24 18:00 Pulse Rate 88 07/01/24 18:00 Respiratory Rate 16 07/01/24 18:00 Blood Pressure 123/55 L 07/01/24 18:00 Pulse Oximetry 100 07/01/24 18:00 Oxygen Delivery Mechanical Ventilation 07/01/24 16:15 Oxygen Flow Rate 2 06/30/24 19:08 Fraction of Inspired Oxygen 30 07/01/24 16:15 <Hemant Martinez MD - Last Filed: 06/30/24 20:04> Vital Signs Pulse Rate 146 H 06/30/24 18:09 Respiratory Rate 17 06/30/24 18:09 Blood Pressure 125/73 06/30/24 18:09 Pulse Oximetry 98 06/30/24 18:09 Temperature 98.5 F 07/01/24 18:00 Pulse Rate 88 07/01/24 18:00 Respiratory Rate 16 07/01/24 18:00 Blood Pressure 123/55 L 07/01/24 18:00 Pulse Oximetry 100 07/01/24 18:00 Oxygen Delivery Mechanical Ventilation 07/01/24 16:15 Oxygen Flow Rate 2 06/30/24 19:08 Fraction of Inspired Oxygen 30 07/01/24 16:15 <Tejal Puckett MD - Last Filed: 07/01/24 18:24> MDM - Abdominal Pain MDM Narrative Medical decision making narrative: Patient came to the ED with abdominal pain and vomiting Vital signs showing heart rate of 146, irregular irregularity, otherwise within normal limit Physical examination showing a comfortable patient, holding vomiting bag in hand with excessive vomiting and tachycardia on large distended abdomen. Differential diagnosis include small-bowel obstruction, cholecystitis, gastritis, pancreatitis, esophagitis, colitis, dehydration, electrolyte imbalance Blood workup today includes CBC, CMP, lipase, troponin, lactic acid showed Patient care turned over to Dr. Puckett at shift change, awaiting labs, imaging, disposition. Patient been resting quietly in the emergency room without any issues or problems. <Hemant Martinez MD - Last Filed: 06/30/24 20:04> Patient came to the ED with abdominal pain and vomiting Vital signs showing heart rate of 146, irregular irregularity, otherwise within normal limit Physical examination showing a comfortable patient, holding vomiting bag in hand with excessive vomiting and tachycardia on large distended abdomen. Differential diagnosis include small-bowel obstruction, cholecystitis, gastritis, pancreatitis, esophagitis, colitis, dehydration, electrolyte imbalance Blood workup today includes CBC, CMP, lipase, troponin, lactic acid showed Patient care turned over to Dr. Puckett at shift change, awaiting labs, imaging, disposition. Patient been resting quietly in the emergency room without any issues or problems. <Tejal Puckett MD - Last Filed: 07/01/24 18:24> Lab Data Result diagrams: 07/01/24 06:08 07/01/24 06:07 <Hemant Martinez MD - Last Filed: 06/30/24 20:04> Labs: Lab Results 06/30/24 06/30/24 06/30/24 Range/Units 18:40 18:41 21:06 WBC 20.2 H (4.5-10.0) K/mm3 RBC 4.45 L (4.6-6.20) M/mm3 Hgb 13.9 L (14.0-18.0) g/dL Hct 43.9 (42.0-52.0) % MCV 98.7 (80-100) fl MCH 31.2 (26-34) pg MCHC 31.7 L (32-36) g/dl RDW 13.6 (11.5-14.5) % Plt Count 194 D (150-375) k/mm3 MPV 8.4 (7.4-10.4) fl Immature Gran % (Auto) 0.5 (0-0.5) % Neut % (Auto) 94.0 H (45.5-73.1) % Lymph % (Auto) 3.0 L (18.3-44.2) % [place] % (Auto) 2.1 L (2.6-8.5) % Eos % (Auto) 0.2 (0-4.4) % Baso % (Auto) 0.2 (0.2-1.2) % Lymph # (Auto) 0.61 L (0.9-3.2) K/mm3 [place] # (Auto) 0.4 (0.1-0.6) K/mm3 Eos # (Auto) 0.0 (0-0.3) K/mm3 Baso # (Auto) 0.1 (0.0-0.1) K/mm3 Abs Immat Gran (auto) 0.10 H (0.00-0.031) K/mm3 Absolute Neuts (auto) 19.0 H (1.3-6.7) K/mm3 Absolute Nucleated RBC 0.000 (0.0-0.012) K/mm3 Band Neutrophils % Not Reportable Nucleated RBC % 0.0 (0.0-0.2) % Platelet Estimate Adequate (Adequate) Schistocytes None seen PT (11.1-14.7) Seconds INR APTT (22.3-36.8) Seconds D-Dimer (<0.48) ug/mL Methemoglobin (0-1.5) %THb Minute Volume Vent Mode Tidal Volume ml PEEP cmH2O Peak Inspir Pressure Pressure Support cmH2O Sodium 133 L (137-145) mmol/L Potassium 4.2 (3.4-5.0) mmol/L Chloride 96 L (98-107) mmol/L Carbon Dioxide 27 (22-30) mmol/L Anion Gap 10 (4-12) mmol/L BUN 13 (9-20) mg/dL Creatinine 0.84 (0.7-1.3) mg/dL Estim Creat Clear Calc 67 ml/min Estimated GFR > 60 (59 - ) Glucose 100 (65-110) mg/dL Lactic Acid 2.6 H 1.5 (0.7-2.0) mmol/L Calcium 9.1 (8.4-10.2) mg/dL Magnesium 1.5 L (1.6-2.3) mg/dL Total Bilirubin 1.3 (0.2-1.3) mg/dL AST 29 (17-59) U/L ALT 19 (6-50) U/L Alkaline Phosphatase 73 (38-126) U/L Troponin I < 0.012 (0.000-0.034) ng/mL NT-Pro-B Natriuret Pep 3290 H (19.9-100) pg/mL Total Protein 7.0 (6.3-8.2) g/dL Albumin 4.2 (3.5-5.1) g/dL Lipase 95 (23-300) U/L Urine Color (Yellow) Urine Appearance (Clear) Urine pH (5.0-9.0) Ur Specific [place] (1.001-1.035) Urine Protein (Negative) mg/dL Urine Glucose (UA) (Negative) mg/dL Urine Ketones (Negative) mg/dL Ur Blood (Man) (Negative) Urine Nitrate (Negative) Urine Bilirubin (Negative) Urine Urobilinogen (<2.0) mg/dL Add Ur Microanalysis Leukocyte Esterase Rfl (Negative) EARL/UL Urine RBC (0-2) /hpf Urine WBC (0-3) /hpf Ur Squamous Epith Cells (Few) /hpf Urine Bacteria /hpf Urine Casts Blood Type O Positive Antibody Screen Negative 06/30/24 06/30/24 07/01/24 Range/Units 21:07 22:18 00:00 WBC (4.5-10.0) K/mm3 RBC (4.6-6.20) M/mm3 Hgb 11.8 L (14.0-18.0) g/dL Hct 37.0 L (42.0-52.0) % MCV (80-100) fl MCH (26-34) pg MCHC (32-36) g/dl RDW (11.5-14.5) % Plt Count (150-375) k/mm3 MPV (7.4-10.4) fl Immature Gran % (Auto) (0-0.5) % Neut % (Auto) (45.5-73.1) % Lymph % (Auto) (18.3-44.2) % [place] % (Auto) (2.6-8.5) % Eos % (Auto) (0-4.4) % Baso % (Auto) (0.2-1.2) % Lymph # (Auto) (0.9-3.2) K/mm3 [place] # (Auto) (0.1-0.6) K/mm3 Eos # (Auto) (0-0.3) K/mm3 Baso # (Auto) (0.0-0.1) K/mm3 Abs Immat Gran (auto) (0.00-0.031) K/mm3 Absolute Neuts (auto) (1.3-6.7) K/mm3 Absolute Nucleated RBC (0.0-0.012) K/mm3 Band Neutrophils % Nucleated RBC % (0.0-0.2) % Platelet Estimate (Adequate) Schistocytes PT 17.7 H (11.1-14.7) Seconds INR 1.4 APTT 30.6 (22.3-36.8) Seconds D-Dimer 1.21 H (<0.48) ug/mL Methemoglobin 0.3 (0-1.5) %THb Minute Volume Not Reportable Vent Mode Cmv Tidal Volume 500 ml PEEP 0 cmH2O Peak Inspir Pressure Not Reportable Pressure Support cmH2O Sodium (137-145) mmol/L Potassium (3.4-5.0) mmol/L Chloride (98-107) mmol/L Carbon Dioxide (22-30) mmol/L Anion Gap (4-12) mmol/L BUN (9-20) mg/dL Creatinine (0.7-1.3) mg/dL Estim Creat Clear Calc ml/min Estimated GFR (59 - ) Glucose (65-110) mg/dL Lactic Acid (0.7-2.0) mmol/L Calcium (8.4-10.2) mg/dL Magnesium (1.6-2.3) mg/dL Total Bilirubin (0.2-1.3) mg/dL AST (17-59) U/L ALT (6-50) U/L Alkaline Phosphatase (38-126) U/L Troponin I (0.000-0.034) ng/mL NT-Pro-B Natriuret Pep (19.9-100) pg/mL Total Protein (6.3-8.2) g/dL Albumin (3.5-5.1) g/dL Lipase (23-300) U/L Urine Color Yellow (Yellow) Urine Appearance Cloudy H (Clear) Urine pH 7.5 (5.0-9.0) Ur Specific [place] 1.036 H (1.001-1.035) Urine Protein Trace (Negative) mg/dL Urine Glucose (UA) Negative (Negative) mg/dL Urine Ketones 1+ H (Negative) mg/dL Ur Blood (Man) Negative (Negative) Urine Nitrate Negative (Negative) Urine Bilirubin Negative (Negative) Urine Urobilinogen 1.0 (<2.0) mg/dL Add Ur Microanalysis Reviewed Leukocyte Esterase Rfl Negative (Negative) EARL/UL Urine RBC 0-2 (0-2) /hpf Urine WBC 6-10 H (0-3) /hpf Ur Squamous Epith Cells Moderate (Few) /hpf Urine Bacteria 1+ H /hpf Urine Casts 3-5 Blood Type Antibody Screen <Hemant Martinez MD - Last Filed: 06/30/24 20:04> Lab Results 06/30/24 06/30/24 06/30/24 Range/Units 18:40 18:41 21:06 WBC 20.2 H (4.5-10.0) K/mm3 RBC 4.45 L (4.6-6.20) M/mm3 Hgb 13.9 L (14.0-18.0) g/dL Hct 43.9 (42.0-52.0) % MCV 98.7 (80-100) fl MCH 31.2 (26-34) pg MCHC 31.7 L (32-36) g/dl RDW 13.6 (11.5-14.5) % Plt Count 194 D (150-375) k/mm3 MPV 8.4 (7.4-10.4) fl Immature Gran % (Auto) 0.5 (0-0.5) % Neut % (Auto) 94.0 H (45.5-73.1) % Lymph % (Auto) 3.0 L (18.3-44.2) % [place] % (Auto) 2.1 L (2.6-8.5) % Eos % (Auto) 0.2 (0-4.4) % Baso % (Auto) 0.2 (0.2-1.2) % Lymph # (Auto) 0.61 L (0.9-3.2) K/mm3 [place] # (Auto) 0.4 (0.1-0.6) K/mm3 Eos # (Auto) 0.0 (0-0.3) K/mm3 Baso # (Auto) 0.1 (0.0-0.1) K/mm3 Abs Immat Gran (auto) 0.10 H (0.00-0.031) K/mm3 Absolute Neuts (auto) 19.0 H (1.3-6.7) K/mm3 Absolute Nucleated RBC 0.000 (0.0-0.012) K/mm3 Band Neutrophils % Not Reportable Nucleated RBC % 0.0 (0.0-0.2) % Platelet Estimate Adequate (Adequate) Schistocytes None seen PT (11.1-14.7) Seconds INR APTT (22.3-36.8) Seconds D-Dimer (<0.48) ug/mL Methemoglobin (0-1.5) %THb Minute Volume Vent Mode Tidal Volume ml PEEP cmH2O Peak Inspir Pressure Pressure Support cmH2O Sodium 133 L (137-145) mmol/L Potassium 4.2 (3.4-5.0) mmol/L Chloride 96 L (98-107) mmol/L Carbon Dioxide 27 (22-30) mmol/L Anion Gap 10 (4-12) mmol/L BUN 13 (9-20) mg/dL Creatinine 0.84 (0.7-1.3) mg/dL Estim Creat Clear Calc 67 ml/min Estimated GFR > 60 (59 - ) Glucose 100 (65-110) mg/dL Lactic Acid 2.6 H 1.5 (0.7-2.0) mmol/L Calcium 9.1 (8.4-10.2) mg/dL Magnesium 1.5 L (1.6-2.3) mg/dL Total Bilirubin 1.3 (0.2-1.3) mg/dL AST 29 (17-59) U/L ALT 19 (6-50) U/L Alkaline Phosphatase 73 (38-126) U/L Troponin I < 0.012 (0.000-0.034) ng/mL NT-Pro-B Natriuret Pep 3290 H (19.9-100) pg/mL Total Protein 7.0 (6.3-8.2) g/dL Albumin 4.2 (3.5-5.1) g/dL Lipase 95 (23-300) U/L Urine Color (Yellow) Urine Appearance (Clear) Urine pH (5.0-9.0) Ur Specific [place] (1.001-1.035) Urine Protein (Negative) mg/dL Urine Glucose (UA) (Negative) mg/dL Urine Ketones (Negative) mg/dL Ur Blood (Man) (Negative) Urine Nitrate (Negative) Urine Bilirubin (Negative) Urine Urobilinogen (<2.0) mg/dL Add Ur Microanalysis Leukocyte Esterase Rfl (Negative) EARL/UL Urine RBC (0-2) /hpf Urine WBC (0-3) /hpf Ur Squamous Epith Cells (Few) /hpf Urine Bacteria /hpf Urine Casts Blood Type O Positive Antibody Screen Negative 06/30/24 06/30/24 07/01/24 Range/Units 21:07 22:18 00:00 WBC (4.5-10.0) K/mm3 RBC (4.6-6.20) M/mm3 Hgb 11.8 L (14.0-18.0) g/dL Hct 37.0 L (42.0-52.0) % MCV (80-100) fl MCH (26-34) pg MCHC (32-36) g/dl RDW (11.5-14.5) % Plt Count (150-375) k/mm3 MPV (7.4-10.4) fl Immature Gran % (Auto) (0-0.5) % Neut % (Auto) (45.5-73.1) % Lymph % (Auto) (18.3-44.2) % [place] % (Auto) (2.6-8.5) % Eos % (Auto) (0-4.4) % Baso % (Auto) (0.2-1.2) % Lymph # (Auto) (0.9-3.2) K/mm3 [place] # (Auto) (0.1-0.6) K/mm3 Eos # (Auto) (0-0.3) K/mm3 Baso # (Auto) (0.0-0.1) K/mm3 Abs Immat Gran (auto) (0.00-0.031) K/mm3 Absolute Neuts (auto) (1.3-6.7) K/mm3 Absolute Nucleated RBC (0.0-0.012) K/mm3 Band Neutrophils % Nucleated RBC % (0.0-0.2) % Platelet Estimate (Adequate) Schistocytes PT 17.7 H (11.1-14.7) Seconds INR 1.4 APTT 30.6 (22.3-36.8) Seconds D-Dimer 1.21 H (<0.48) ug/mL Methemoglobin 0.3 (0-1.5) %THb Minute Volume Not Reportable Vent Mode Cmv Tidal Volume 500 ml PEEP 0 cmH2O Peak Inspir Pressure Not Reportable Pressure Support cmH2O Sodium (137-145) mmol/L Potassium (3.4-5.0) mmol/L Chloride (98-107) mmol/L Carbon Dioxide (22-30) mmol/L Anion Gap (4-12) mmol/L BUN (9-20) mg/dL Creatinine (0.7-1.3) mg/dL Estim Creat Clear Calc ml/min Estimated GFR (59 - ) Glucose (65-110) mg/dL Lactic Acid (0.7-2.0) mmol/L Calcium (8.4-10.2) mg/dL Magnesium (1.6-2.3) mg/dL Total Bilirubin (0.2-1.3) mg/dL AST (17-59) U/L ALT (6-50) U/L Alkaline Phosphatase (38-126) U/L Troponin I (0.000-0.034) ng/mL NT-Pro-B Natriuret Pep (19.9-100) pg/mL Total Protein (6.3-8.2) g/dL Albumin (3.5-5.1) g/dL Lipase (23-300) U/L Urine Color Yellow (Yellow) Urine Appearance Cloudy H (Clear) Urine pH 7.5 (5.0-9.0) Ur Specific [place] 1.036 H (1.001-1.035) Urine Protein Trace (Negative) mg/dL Urine Glucose (UA) Negative (Negative) mg/dL Urine Ketones 1+ H (Negative) mg/dL Ur Blood (Man) Negative (Negative) Urine Nitrate Negative (Negative) Urine Bilirubin Negative (Negative) Urine Urobilinogen 1.0 (<2.0) mg/dL Add Ur Microanalysis Reviewed Leukocyte Esterase Rfl Negative (Negative) EARL/UL Urine RBC 0-2 (0-2) /hpf Urine WBC 6-10 H (0-3) /hpf Ur Squamous Epith Cells Moderate (Few) /hpf Urine Bacteria 1+ H /hpf Urine Casts 3-5 Blood Type Antibody Screen <Tejal Puckett MD - Last Filed: 07/01/24 18:24> ABG Data ABG results: 07/01/24 00:00 Puncture Site Artline ABG pH 7.273 L* ABG pCO2 39.9 ABG pO2 395.1 H ABG PO2/FiO2 Ratio 3.95 ABG HCO3 18.0 L ABG O2 Saturation 99.8 ABG O2 Content 18.1 ABG Base Excess -8.3 A-a Gradient 278.0 Oxyhemoglobin 98.7 Carboxyhemoglobin 0.9 Reduced Hemoglobin 0.1 Total Hemoglobin 12.3 O2 Delivery Device Ventilator O2 Liters/Min Not Reportable Vent Rate 10 FiO2 100 <Hemant Martinez MD - Last Filed: 06/30/24 20:04> 07/01/24 00:00 Puncture Site Artline ABG pH 7.273 L* ABG pCO2 39.9 ABG pO2 395.1 H ABG PO2/FiO2 Ratio 3.95 ABG HCO3 18.0 L ABG O2 Saturation 99.8 ABG O2 Content 18.1 ABG Base Excess -8.3 A-a Gradient 278.0 Oxyhemoglobin 98.7 Carboxyhemoglobin 0.9 Reduced Hemoglobin 0.1 Total Hemoglobin 12.3 O2 Delivery Device Ventilator O2 Liters/Min Not Reportable Vent Rate 10 FiO2 100 <Tejal Puckett MD - Last Filed: 07/01/24 18:24> Imaging Data Radiologist's impression: ITS Impressions Abdomen/Pelvis CT 06/30/24 20:18 IMPRESSION: 1. Air seen in the wall of the cecum and ascending colon with thickening in the ascending colon. Differential include infection with gas-forming organism versus ischemia versus connective tissue disease. Clinical correlation and further evaluation advised. No free air. Minimal free fluid seen around the liver. 2. Dilated small bowel loops in the distal ileum with transition zone seen in the terminal ileum area. Follow-up advised. 3. Bilateral basal atelectasis with left pleural effusion. 4. Cardiomegaly. 5. Slightly thickened wall of the bladder. Evaluation for cystitis advised Dr. Puckett was notified with the result of the patient at 8:40 PM on June 30, 2024. Chest X-Ray 07/01/24 06:36 IMPRESSION: Mild pulmonary vascular congestion with bibasilar atelectasis. Withdrawal of the endotracheal tube approximately 3 cm is suggested for optimal radiographic placement. Remaining support catheters in good position. <Hemant Martinez MD - Last Filed: 06/30/24 20:04> ITS Impressions Abdomen/Pelvis CT 06/30/24 20:18 IMPRESSION: 1. Air seen in the wall of the cecum and ascending colon with thickening in the ascending colon. Differential include infection with gas-forming organism versus ischemia versus connective tissue disease. Clinical correlation and further evaluation advised. No free air. Minimal free fluid seen around the liver. 2. Dilated small bowel loops in the distal ileum with transition zone seen in the terminal ileum area. Follow-up advised. 3. Bilateral basal atelectasis with left pleural effusion. 4. Cardiomegaly. 5. Slightly thickened wall of the bladder. Evaluation for cystitis advised Dr. Puckett was notified with the result of the patient at 8:40 PM on June 30, 2024. Chest X-Ray 07/01/24 06:36 IMPRESSION: Mild pulmonary vascular congestion with bibasilar atelectasis. Withdrawal of the endotracheal tube approximately 3 cm is suggested for optimal radiographic placement. Remaining support catheters in good position. <Tejal Puckett MD - Last Filed: 07/01/24 18:24> Critical Care Time Critical Care Time Critical Care Time: Yes <Tejal Puckett MD - Last Filed: 07/01/24 18:24> Total Critical Care Time: 60 <Tejal Puckett MD - Last Filed: 07/01/24 18:24> Discharge Plan Discharge Clinical Impression: Leukocytosis, Abnormal CT scan, colon, Abnormal CT scan, small bowel, Pleural effusion on left <Hemant Martinez MD - Last Filed: 06/30/24 20:04> Patient Disposition: Still a Patient <Hemant Martinez MD - Last Filed: 06/30/24 20:04> Condition: Critical <Hemant Martinez MD - Last Filed: 06/30/24 20:04>
[2024-06-30] MEDS: HYDROmorphone HCL INJ (*CRX) 2 MG/ML VIAL 0.5 MG IV PUSH (18:52)
[2024-06-30] MEDS: ONDANSETRON INJ 4 MG/2 ML VIAL IV PUSH (18:53)
[2024-06-30] MEDS: SODIUM CHLORIDE 0.9% IV 500 ML 999 ML IV CONT (18:53)
[2024-06-30 18:55] LABS: Lactic Acid Reflex 2.6 mmol/L (0.7-2.0)
[2024-06-30 18:56] LABS: Alanine Aminotransferase 19 U/L (6-50); Albumin Level 4.2 g/dL (3.5-5.1); Alkaline Phosphatase 73 U/L (38-126); Anion Gap 10 mmol/L (4-12); Aspartate Amino Transferase 29 U/L (17-59); Bilirubin,Total 1.3 mg/dL (0.2-1.3); Blood Urea Nitrogen 13 mg/dL (9-20); Calcium 9.1 mg/dL (8.4-10.2); Carbon Dioxide 27 mmol/L (22-30); Chloride 96 mmol/L (98-107); Estimated CRCL calculation 67 ml/min; Estimated Glomerular Filt Rate > 60; Glucose 100 mg/dL (65-110); Lipase 95 U/L (23-300); Potassium 4.2 mmol/L (3.4-5.0); Sodium 133 mmol/L (137-145)
--- NOTE | 2024-06-30 18:57 | PC.NURSE ---
patient had an episode of emesis, coffee ground, about 900ML, suction at bedside, md at bedside- NG tube ordered verbally. NG placed, placement confirming KUB ordered and xray called. NG at 65 in the left nare. patient tolerated well.
--- NOTE | 2024-06-30 19:04 | PC.NURSE ---
xray at bedside at this time
[2024-06-30 19:10] LABS: Platelet Estimate Adequate (Adequate); Schistocytes None Seen
[2024-06-30] MEDS: dilTIAZem HCl INJ 25 MG/5 ML VIAL 10 MG IV PUSH (19:14)
--- OUTSIDE RECORDS SUMMARY | 2024-06-30 19:15 | XMS_ITS ---
Author Organization [facility] Address [address] [facility] [address] [place] [address] Care Team Providers Care Aircraft Motor Mechanic Name Role Phone Antelmo Aguilar Primary Care Provider HITESH Severino Unavailable [phone] REASON FOR VISIT 3-4 Month Follow up Encounters Encounter Location Date Provider Diagnosis [address] [id number] 12/18/2023 HITESH HUYNH Plan Of Treatment No Information Progress Notes * Edison CADETDOB:1935 (89 yo M)Acc No.[id number]:12/18/2023 Patient: Edison PHILLIPS Provider: Jennifer Huynh MD :1935 A ge:88 Y S ex:Male Date:12/18/2023 Address:[address] [facility] Pcp:Antelmo Aguilar Subjective: * Chief Complaints: * 1 . 3-4 Month Follow up. * Medical History: Objective: * Vitals: Assessment: Plan: * Treatment: * * Electronic signature of PATRICK HUYNH MD on 06/30/2024 at 07:15 PM CDT Sign off status: Pending * Provider: Jennifer Huynh MD Date: 02/16/2023 Generated for Rebekah perla/Manuela/eTmee on: 0 06/30/2024 07:15 PM CDT
--- OUTSIDE RECORDS SUMMARY | 2024-06-30 19:16 | XMS_ITS | Patient Health Record ---
Author Organization [facility] Address [address] [address] [place] [address] Care Team Providers Care Helpdesk Analyst Name Role Phone Lauren Antelmo Primary Care Provider HITESH Severino Unavailable [phone] Allergies No Known Allergies Reason For Referral No Information Medications Medication SIG (Take, Route, Frequency, Duration) Notes Start Date End Date Status Magnesium Oxide 400 MG 1 tablet as neede d Orally Once a day Active Xanax 0.25 MG 1 tablet Orally Twic e a day Active Metoprolol Tartrate 100 MG 1 tablet with food Orally Once a day Active Latanoprost 0.005 % 1 null into affected eye in the evening Ophthalmic Once a day Active Acetaminophen 500 MG 1 capsule as needed Orally every 6 hrs Active Loratadine 10 MG 1 tablet Orally Once a day Not-Taking Furosemide 20 MG 1 tablet Orally Once a day for 30 day(s) Not-Taking Entresto 24-26 MG TAKE 1 TABLET BY ROMAN TH TWICE DAILY for 30 Active Fluticasone Propionate 50 MCG/ACT 1 spray in each nostril Nasally Once a day Active Isosorbide Mononitrate ER 30 MG 1 tablet in the morning Orally Once a day for 90 days Active Sodium Chloride 1 GM as directed Orally Active Doxycycline Monohydrate 100 MG 1 capsule Orally Once a day for 10 days 03/10/2023 Active Atorvastatin Calcium 40 MG 1 tablet Oral ly Once a day for 30 days Active Aspirin 81 MG 1 tablet Orally Once a day for 30 day(s) Active Combigan 0.2-0.5 % 1 drop into affected eye Ophthalmic Twice a day Active Social History Tobacco Use: Social History Observation Description Date Details (start date - stop date) Never Smoker NA - NA Tobacco Use/Smoking Question Answer Notes Are you a nonsmoker Problems Problem Type SNOMED Code ICD Code Onset Dates Problem Status W/U Status Risk Notes Problem Paroxysmal atrial fibrillation (792765527) Paroxysmal atrial fibrillation (I48.0) Active confirmed Problem Lymphedema (750706594) Lymphedema, not elsewhere classified (I89.0) Active confirmed Problem Skin ulcer of calf (529157616) 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 Problem Skin ulcer of calf (863562188) Non-pressure chronic ulcer of left calf with 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) Active confirmed Problem Varicose veins of leg with pain, 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 Encounters Encounter Location Date Provider Diagnosis [address] [id number] 12/18/2023 HITESH HUYNH Plan Of Treatment No Information Insurance Providers Payer Name Payer Address Payer Phone Subscriber Number Group Number Insured Name Patient Relationship to Insured Coverage Start Date Coverage End Date [facility] [address] [address] [place] [address] [phone] [id number] Edison Burr Self - patient is the insured Medical (General) History Medical History History ICD Code Heart attack HTN Arthritis Depression Kidney Disease Surgical History Surgery Date(Month/Year)
--- OUTSIDE RECORDS SUMMARY | 2024-06-30 19:16 | XMS_ITS | Clinical Summary ---
Author Organization [facility] Address [address] [place] [address] Phone Care Team Providers Care Food Service Tray Attendant Name Role Phone Antelmo Aguilar MD Primary Care Provider [phone] Allergies No known active allergies Medications loratadine (CLARITIN) 10 MG tablet Take 10 mg by mouth 1 (one) time each day Active isosorbide mononitrate (IMDUR) 30 MG 24 hr tablet Take 30 mg by mouth 1 (one) time each day Do not crush or chew. Active aspirin 81 MG chewable tablet Chew 81 mg 1 (one) time each day Active ALPRAZolam (XANAX) 0.25 MG tablet Take 0.25 mg by mouth at night if needed Active latanoprost (XALATAN) 0.005 % ophthalmic solution 1 drop every night Active brimonidine-miguel angel lol (COMBIGAN) 0.2-0.5 % ophthalmic solution 1 drop every 12 (twelve) hours Active atorvastatin (LIPITOR) 20 MG tablet Take 20 mg by mouth daily 03/19/2021 Active furosemide (LASIX) 20 MG tablet Take 20 mg by mouth daily 03/09/2021 Active Entresto 24-26 MG per tablet Take 1 tablet by mouth 2 (two) times a day 09/01/2021 Active metoprolol succinate XL (TOPROL-XL) 100 MG 24 hr tablet 07/06/2021 Act smith escitalopram (LEXAPRO) 10 MG tablet 09/13/2021 Active Active Problems Problem Noted Date Diagnosed Date 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 Hyponatremia 11/09/2020 Acute kidney failure 08/20/2020 Hyposmolality and/or hyponatremia 08/20/2020 Coronary arteriosclerosis 08/28/2018 Hyperlipidemia 10/31/2016 Immunizations Immunization Administration Dates Next Due Influenza LAIV (Nasal) 11/15/2017 Influenza TIV (IM) 11/19/2020 Influenza, Injectable, Quadrivalent 11/15/2017 Influenza, Quadrivalent 11/15/2017 Pfizer Sars-cov-2 Vaccination 12/20/2020, 021,03/03/2020 Pneumococcal Conjugate 10/07/2018,10/07/2018 Pneumococcal Conjugate 13-Valent 02/27/2017 Pneumococcal Polysaccharide 06/06/2018 Tdap 05/04/2020,01/12/2019 Social History Tobacco Use Types Packs/Day Years Used Date Smoking Tobacco: Former Smokeless Tobacco: Never Alcohol Use Standard Drinks/Week Comments Not Currently 0 (1 standard drink = 0.6 oz pur e alcohol) Sex and Gender Information Value Date Recorded Sex Assigned at Not on file Legal Sex Male 8:42 AM MDT Gender Identity Not on file Sexual Orientation Not on file Last Filed Vital Signs Vital Sign Reading Time Taken Comments Blood Pressure 122/70 09/20/2021 10:54 AM CDT Pulse 72 09/20/2021 10:54 AM CDT Temperature 35.8 C (96.4 F) 09/20/2021 10:54 AM CDT Respiratory Rate - - Oxygen Saturation - - Inhaled Oxygen Concentration - - Weight 97.5 kg (215 lb) 09/20/2021 10:54 AM CDT Height 180.3 cm (5' 11) 09/20/2021 10:54 AM CDT Body Mass Index 29.99 09/20/2021 10:54 AM CDT Plan of Treatment Health Maintenance Due Date Last Done Comments COVID-19 Vaccine ( season) 2023 12/20/2020, 03/30/2020, 03/03/2020 Influenza Vaccine (Season Ended) 2024 11/20/19 21, 11/15/2017 Pneumococcal PPSV23/PCV13 65 + Years / Low and Medium Risk Completed 06/06/2018, 02/27/2017 Insurance [employer] Member Subscriber Plan / Payer (Ef fective 2020-Present) Name:Edison Burr Member ID:[id number] PPO Relation to Subscriber:Self Name:Edison Burr Subscriber ID:[id number] PPO Payer ID:[id number] Type:Not on file Address: [address] [address] Care Teams Food Service Tray Attendant Relationship Specialty Start Date End Date Antelmo Aguilar MD PCP - General Family Medicine 03/23/21
--- OUTSIDE RECORDS SUMMARY | 2024-06-30 19:16 | XMS_ITS | CONTINUITY OF CARE DOCUMENT ---
Author Name denis barrios Address Unknown Organization [facility] Address [address] [facility] [address] [place] [address] Phone [phone] Care Team Providers Care Range Mechanic Name Role Phone Sergei AMBROSIO, Malka Unavailable DOMINIK AMBROSIO, NATE Unavailable [phone] DOMINIK AMBROSIO, NATE Unavailable PROBLEMS Condition Status Date Provider Notes Hyponatremia active Hector Macias Family History of Hypertension: completed - To gray Mai MD HTN essential--echo ef 65%, 2019 active Jose Ramon Mia MD Hyperlipidemia active Malka Mai MD Abnormal EKG active Malka Mai MD Obesity active Malka Mai MD CAD- 100% LAD w/collaterals 30% cir 40% mid RCA EF 60% 03/27 active Malka Mai MD ENCOUNTERS Date Type Provider Location Encounter Diag nosis - In-person encounter Office Visit Malka Mai MD [facility] HTN essential--echo ef 65%, 2019 - In-person encounter Office Visit Malka Mai MD [facility] - In-person encounter Office Visit Malka Mai MD [facility] Family History of Hypertension: - In-person encounter Office Visit Malka Mai MD [facility] CAD- 100% LAD w/collaterals 30% cir 40% mid RCA EF 60% 03/27 - In-person encounter Office Visit Malka Mai MD [facility] HTN essential--echo ef 65%, 2019HyperlipidemiaA bnormal EKGObesity VITAL SIGNS Date Observation Value Provider Body Mass Index (Ratio) 31.60 kg/m2 Cholo Mai MD weight E&M 233 [lb_av] Ivette pemberton respiratory rate E&M 18 /min Kalyn Delatorre blood pressure, cuff size regular La Sunita Delatorre height E&M 72 [in_i] Ivette pemberton height E&M 72 [in_i] [facility] Body Mass Index (Ratio) 32.95 kg/m2 Cholo Mai MD respiratory rate E&M 16 /min [facility] oxygen saturation, oximetry 98 % [facility] pulse rate 66 /min [facility] blood pressure, diastolic 90 mm[Hg] To gray Mai MD blood pressure, systolic 160 mm[Hg] Ton duarte Mai MD weight E&M 243 [lb_av] [facility] height E&M 72 [in_i] [facility] Body Mass Index (Ratio) 33.22 kg/m2 Cholo Mai MD blood pressure, resting Yes Jeff a Luisa blood pressure, diastolic 80 mm[Hg] Er ica Jaren-Vince blood pressure, systolic 140 mm[Hg] Cindy isabella Moran oxygen saturation, oximetry 97 % Awa Moran pulse rate 71 /min Awa Clarke weight E&M 245 [lb_av] Awa Jaren- Vince height E&M 72 [in_i] Awa Jaren- Vince Body Mass Index (Ratio) 33.50 kg/m2 Cholo Mai MD blood pressure, cuff size large Ke rri Gruenenfaideantoni blood pressure, diastolic 70 mm[Hg] David Alejandre blood pressure, systolic 160 mm[Hg] Kirill Cohenaideantoni oxygen saturation, oximetry 98 % Karen Cohenaideantoni respiratory rate E&M 20 /min Karen Pace ariellajuankaryn pulse rate 71 /min Karen Telles lder weight E&M 247 [lb_av] Karen Telles lder height E&M 72 [in_i] Karen Telles er ALLERGIES No Known Drug Allergies HISTORY OF MEDICATION USE Medication Status Instructions Dates Provider Indications Com ments Entresto 24-26 mg tablet active twice a day Galindo Alexander metoprolol succinate 100 mg tablet extended release 24 hr active Galindo Alexander amlodipine 5 mg tablet completed TAKE 1 TABLET BY MOUTH EVERY DAY - 06/07 Hector Macias atorvastatin 20 mg tablet active Take 1 tablet by mouth once daily Galindo Alexander Crestor 20 mg tablet completed 1 tablet on a day 08/27 - Hector Macias alprazolam 0.25 mg tablet active 1 tablet once a day 08/28 Malka Mai MD isosorbide mononitrate 30 mg tablet extended release 24 hr active Take 1 tablet by mouth once a day 08/03 Galindo Alexander TYLENOL PM EXTRA STRENGTH LIQUID completed 2 every night 03/05 - 02/06 Galindo Alexander aspirin 81 mg tablet,delayed release (DR/EC) active 1 tablet by mouth once a day 03/05 Karen Alejandre Combigan 0.2-0.5% drops active as directed 03/05 Karen Alejandre latanoprost 0.005% drops active as directed 03/05 Karen Alejandre Alavert 10 mg tablet,disintegrating active once a day 03/05 Karen Alejandre lisinopril 10 mg tablet completed 1 tablet once a day 03/05 - 0 Karen Alejandre hydrochlorothiazide 12.5 mg capsule completed 1 tablet once a day 03/05 - Karen Alejandre CRESTOR 40 MG ORAL TABLET completed ONE TAB. DAILY 03/05 - 02/26 Malka Mai MD metoprolol tartrate 100 mg tablet completed 0.5 tablet twice a day 03/05 - 06/07 Karen Alejandre SOCIAL HISTORY Date Observation Value Provider social history reviewed E&M revi ewed - no changes required Galindo Alexander smoking, year quit 1954 [facility] number of years as a smoker 8 a [facility] smoking history, tot al pack/day 1 ppd [facility] cigarette use yes [facility] smoking status Former smoker [facility] number of grandchildren Malka Mai MD T see Mai MD social history E&M S moking History: P atpadilla is a former smoker. Malka Mai MD social history reviewed E&M revi ewed - no changes required Malka Mai MD smoking, year quit 1954 [facility] number of years as a smoker 8 a [facility] smoking history, tot al pack/day 1 ppd [facility] cigarette use yes [facility] smoking status Former smoker [facility] social history E&M S moking History: P atpadilla is a former smoker. Malka Mai MD smoking, year quit 1954 Awa magana-Vince number of years as a smoker 8 a Awa Eastman-Vince smoking history, tot al pack/day 1 ppd Awa Eastman-Vince cigarette use yes Awa Jhaveri smoking status Former smoker Awa Woodson on-Vince social history reviewed E&M revi ewed - no changes required Awa Moran social history reviewed E&M revi ewed - no changes required Malka Mai MD number of years as a smoker 8 a Karen Alejandre smoking history, tot al pack/day 1 ppd Karen Alejandre smoking, year quit 1954 Karen Velez rosannafeldantoni cigarette use yes Karen rodríguez smoking status Former smoker Karen ruffer FUNCTIONAL STATUS Date Observation Value Provider HRA, CV Assess/Plan, Angina (inactive) Management Plan continue current therapy Galindo Alexander HRA, CV Assess/Plan, Angina (inactive) Management Plan continue current therapy Malka Mai MD HRA, CV Assess/Plan, Angina (inactive) Management Plan continue current therapy Malka Mai MD FAMILY HISTORY Family Member Condition Father Family History of Hy pertension: Mother Family History of Hy pertension: INSURANCE PROVIDERS Payer name Policy type / Coverage type [place] red republican ID [facility] MEDICARE ADVANTAGE (PPO) Other [id number] ADVANCE DIRECTIVES Name Date DISCUSSED - NO DECISION MADE TREATMENT PLAN Date Name Performer [id number],S, Galindo Ahmedza i [id number],S, Galindo Ahmedza i [id number],S, Galindo Ahmedza i [id number],S, Galindo Ahmedza i [id number],S, Galindo Ahmedza i [id number],S, Galindo Ahmedza i [id number],S, Galindo Ahmedza i [id number],S, Galindo Ahmedza i [id number],S, Galindo Ahmedza i [id number],S, Galindo Rothmedza i [id number],B, Hector Nacht [id number],S, Hector Nacht [id number],W, Hector Nacht [id number],S, Hector Nacht Telehealth Galindo Ahmedzai Telehealth Galindo Ahmedzai Telehealth Galindo Ahmedzai Telehealth Galindo Ahmedzai Telehealth Galindo Ahmedzai Cardiology Galindo Ahmedzai Cardiology Galindo Ahmedzai Cardiology Galindo Ahmedzai Cardiology Galindo Ahmedzai Cardiology Galindo Ahmedzai Telehealth Hector Nacht Telehealth Hector Nacht Telehealth Hector Nacht Telehealth Hector Nacht TeleHealth 6 m f/up please Srinivasa Mai MD TeleHealth 6 m f/up please Srinivasa Mai MD TeleHealth 6 m f/up please Srinivasa Mai MD Cardiology Malka Mai MD Cardiology Malka Mai MD Cardiology Malka Mai MD Cardiology Malka Mai MD Cardiology Malka Mai MD Cardiology Malka Mai MD Cardiology Malka Mai MD Cardiology Malka Mai MD Cardiology New Patient Malka avelar MD Cardiology New Patient Malka avelar MD Cardiology New Patient Tonitifafny avelar MD Cardiology New Patient Tonduarte avelar MD HISTORY OF PROCEDURES Procedure Date Procedure Name Provider Procedure Notes S tatus EKG Malka Mai MD completed EKG Malka Mai MD completed Regadenoson, 4 units Malka Mai MD completed Cardiolite, 2 units Malka Mai MD completed SPECT Images Jeremy Aggarwal MD completed Stress EKG Eleazar De Leon MD completed EKG Malka Mai MD completed
--- OUTSIDE RECORDS SUMMARY | 2024-06-30 19:17 | XMS_ITS | Referral Summary ---
Author Organization [facility] [address] Address [address] [place] [id number] Care Team Providers Care Food And Drug Research Scientist Name Role Phone Wilbert Bucio MD Unavailable [phone] Gabriel Hand MD Unavailable [phone] Heron Wiggins MD Unavailable [phone] Jw Pascual MD Unavailable [phone] Antelmo Aguilar MD Primary Care Provider [phone] Encounters Date Type Department Care Team Description 06/24/2024 7:00 PM CDT - 06/24/2024 11:59 PM CDT Hospital Encounter [facility] Discharge Disposition: Discharge to home or self care 06/23/2024 6:08 AM CDT - 06/24/2024 7:15 PM CDT Hospital Encounter [facility] Acute Medicine [address] [place] [id number] Néstor Benitez MD Nikolic, Jelena, MD UGIB (upper gastrointestinal bleed) (Primary Dx); Esophagitis; Coffee ground emesis; Nausea and vomiting, unspecified vomiting type; Abdominal bloating Discharge Disposition: Discharge to SNF 04/25/2024 1:20 PM CDT Ancillary Procedure [facility] at [address] [phone] 04/25/2024 1:15 PM CDT Ancillary Procedure [facility] [place] [address] [place] [phone] Left rotator cuff tear arthropathy 04/25/2024 Telephone [facility] Gastroenterology at [address] [place] [phone] Martha Umanzor 04/25/2024 1:00 PM CDT Office Visit [facility] Orthopedic and Sports Medicine [address] [place] [phone] Macey Cota PA Primary osteoarthritis of left knee (Primary Dx); Left rotator cuff tear arthropathy 04/19/2024 Telephone [facility] Orthopedics and Sports Medicine [address] [place] [address] [address] [place] [phone] Macey Cota PA 04/08/2024 10:00 AM CUSTOMER RELATIONS ADVISOR Office Visit [facility] at [address] [place] [phone] Jun Hwang MD 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) (Primary Dx); Chronic venous stasis dermatitis of both lower extremities [I87.2]; Chronic atrial fibrillation (HCC) from Last 3 Months Allergies No known active allergies Medications latanoprost (XALATAN) 0.005 % ophthalmic solutionIndicat ions:ocular hypertension latanoprost 0.005 % eye drops INSTILL 1 DROP INTO LEFT EYE AT BEDTIME 03/05/19 19 Active fluticasone propionate (FLONASE) 50 mcg/actuation nasal sprayIndication s:Allergic Rhinitis Administer 1 spray into each nostril daily Active atorvastatin (LIPITOR) 20 mg tabletIndicatio ns:hyperlipidem ia Take 1 tablet (20 mg total) by mouth daily 90 tablet 3 05/09/19 24 Active metoprolol XL (Toprol XL) 25 mg extended release tabletIndicatio ns:hypertension Take 0.5 tablets (12.5 mg total) by mouth daily 45 tablet 3 05/24/19 24 Active Eliquis 2.5 mg tabletIndicatio ns:atrial fibrillation TAKE 1 TABLET(2.5 MG) BY MOUTH TWICE DAILY 60 tablet 1 11/20/19 24 Active furosemide (LASIX) 20 mg tablet Take 1 tablet (20 mg total) by mouth daily 30 tablet 1 01/21/20 24 Active folic acid (FOLVITE) 1 mg tablet Take 1 tablet (1 mg total) by mouth daily 30 tablet 1 01/21/20 24 Active levothyroxine (SYNTHROID) 25 mcg tablet Take 1 tablet (25 mcg total) by mouth measurer machine before breakfast 30 tablet 1 01/21/20 24 Active polyethylene glycol (MIRALAX) 17 gram/dose bulk powderIndicatio ns:constipation Take 17 g by mouth daily 510 g 01/20/20 24 Active ergocalciferol (VITAMIN D) 50,000 unit capsule Take 1 capsule (50,000 Units total) by mouth once a week 02/05/20 24 Active mirtazapine (REMERON) 15 mg tablet 02/05/20 24 Active spironolactone (ALDACTONE) 25 mg tablet Take 0.5 tablets (12.5 mg total) by mouth daily 15 tablet 1 02/18/19 25 Active sacubitriL-vals tomasa (ENTRESTO) 24-26 mg tabletIndicatio ns:chronic heart failure Take 0.5 tablets by mouth 2 (two) times a day Active clopidogreL (PLAVIX) 75 mg tablet Take 1 tablet (75 mg total) by mouth daily 30 tablet 11 02/28/19 25 2025 Active diphenhydrAMINE -acetaminophen (TYLENOL PM) 25-500 mg tablet Take 1 tablet by mouth Active traMADoL (ULTRAM) 50 mg tablet Take 1 tablet (50 mg total) by mouth every 8 (eight) hours as needed for pain 15 tablet 06/25/[address] (PROTONIX) 40 mg EC tabletIndicatio ns:GI Bleed Take 1 tablet (40 mg total) by mouth 2 (two) times a day 06/25/[address] (PROTONIX) 40 mg EC tabletIndicatio ns:GI Bleed Take 1 tablet (40 mg total) by mouth 2 (two) times a day 60 tablet 01/20/20 24 2024 Discontinued traMADoL (ULTRAM) 50 mg tablet 02/15/19 25 2024 Discontinued acetaminophen (TYLENOL) 325 mg suppository Insert 1 suppository (325 mg total) into the rectum every 4 (four) hours as needed for pain 2024 Discontinued(S top Taking at Discharge) Active Problems Problem Noted Date Diagnosed Date UGIB (upper gastrointestinal bleed) 06/23/2024 Esophagitis 06/23/2024 Coffee ground emesis 06/23/2024 Nausea and vomiting 06/23/2024 Abdominal bloating 06/23/2024 Athscl nightmute art of left leg w ulcer of heel an d midfoot 02/19/2024 Chronic venous stasis dermatitis of both lower e xtremities 02/19/2024 Frequent falls 01/11/2024 Iron deficiency anemia 01/11/2024 Stiffness of unspecified shoulder, not elsewhere classified 09/07/2023 Unsteadiness on feet 09/07/2023 Other fatigue 09/07/2023 Weakness 09/07/2023 Chronic atrial fibrillation 02/13/2023 Encounter for Medicare annual wellness exam 02/08 Assessment & Plan (03/09/2022 12:48 PM CUSTOMER RELATIONS ADVISOR): A(n) yearly Medicare Annual Wellness Visit has been performed today. Edison Burr is up to date on screening tests. He is in need of None- no screening indicated at this time. He is up to date on needed preventative vaccinations. We discussed healthy lifestyle habits, educational material has been given. Medications reviewed, changes documented as per the medical record and discussed with patient along with risks vs benefits. Planning referral to wound clinic; will contact them Dr. Quigley recommended stopping Imdur (I believe); we will double-check that Continuing current regimen otherwise White count is mildly elevated, but otherwise the labs look good Wound will need cleaning; I do not want steri strips applied anymore, as they are not doing anything Continuing Silvadene until we can get the wound visit set up Doxycycline sent for different antibiotic coverage Start probiotic (Align, Florastor, Suhail, etc) Laceration of left knee 02/25/2022 Overview (02/25/2022): advised patient that he should go to the ER or UC after injuries like this steris in place, suturing not possible at this point due to edge retraction C? Assessment & Plan (02/25/2022 2:26 PM CUSTOMER RELATIONS ADVISOR): Silvadene to wound daily after cleansing (OTC wound cleanser). Change dressings daily Keflex x 1 week Don't apply the silvadene until steris slough (likely by Monday) Start antibiotic today Xray today Muscle weakness (generalized) 10/05/2021 Hospital discharge follow-up 09/30/2021 Assessment & Plan (10/01/2021 5:31 PM CDT): I have reviewed the available outside hospital record, medications, and relevant testing from Edison Burr's recent admission. We will attempt to get more information. Complications and discharge plan have been noted, reviewed. Post-discharge testing has been ordered. Will need to keep an eye on the blood pressure. Hydrochlorothiazide was discontinued, which should help to keep the BP above danger zone; continuing metoprolol xl and Entresto I am going to go ahead and repeat metabolic panel, to see what the sodium level etc are now. Considering cellulitis in the R forearm. Lexapro will stay off for now as it can cause low sodium Keflex x 1 week Decreased mobility and endurance 09/30/2021 Assessment & Plan (09/30/2021 11:43 AM CDT): Patient needs walker to assist with her/his ADL's and to enable moving around his home without difficulty He is able to maintain his balance with a walker in order to the form his ADL's. Patient cannot use a cane due to problems with balance secondary to his chronic conditions. Patient would benefit for having a Rollator with a seat so the patient can rest in between ADL's. Lymphedema 06/17/2021 CKD (chronic kidney disease) stage 2, GFR 60-89 ml/min 05/04/2021 Persistent proteinuria, unspecified 03/22/2021 LLOYD (generalized anxiety disorder) 02/10/2021 Osteoarthritis 01/06/2021 Hyponatremia 11/09/2020 Hyposmolality and/or hyponatremia 08/20/2020 Coronary arteriosclerosis 08/28/2018 Obesity 03/05/2018 Erythrocytosis 02/22/2017 Hyperlipidemia 10/31/2016 Benign hypertensive renal disease 08/08/2016 Assessment & Plan (08/26/2022 2:09 PM CDT): Add protein supplement between meals (aiming as close to 60 grams of protein a day as we can get) Discussed leg elevation Continuing leg venous pump, but will try to get one through [employer] however Continuing Juxtalites otherwise Empiric Augmentin x 1 week BP has reportedly been better Awaiting labs- get them today, as I will use the results to plan adjustment on the water pill Assessment & Plan (05/06/2021 4:33 PM CDT): BP today is a bit elevated; reviewed home readings Adding amlodipine; continue lisinopril and Toprol XL Renal function from Jan looked fine; continue as per Dr. Bucio's instructions of course May continue furosemide as 'PRN'- take if swelling returns, stop when swelling resolves Assessment & Plan (02/10/2021 12:15 PM CUSTOMER RELATIONS ADVISOR): Monitor BP- 1-2 times daily, get me the numbers over the next week. If above 160/90, call. Will continue lisinopril at 30 mg dailly Go to daily furosemide Labs reviewed. Kidney function looks fine. Liver function is acceptable. We will watch the bilirubin, but that is only slightly elevated Assessment & Plan (01/10/2021 11:00 AM CUSTOMER RELATIONS ADVISOR): BP journal requested over the next week, take 1-2 times a day in proper position (see handout). Will increase lisinopril to 30 mg daily (1.5 tabs for now, when refill needed will refill at 30 mg tablets). Continue Toprol XL at current dose Adding lisinopril every other day (20 mg) Will recheck creatinine etc in 2-4 week Recent retinal detachment, total or subtotal 09/2010 Resolved Problems Problem Noted Date Diagnosed Date Resolved Date Stage 3 chronic kidney disease 01/10/2021 05/04/2021 Acute kidney failure 08/20/2020 022 Immunizations Immunization Administration Dates Next Due Influenza LAIV (Nasal) 11/15/2017 Influenza, Quadrivalent, Hig h Dose, Preservative Free, Intrr 11/08/2021 Influenza, Quadrivalent, Spl it, Intramuscular 11/15/2017 Influenza, Trivalent, IM (MDV) 11/19/2020 Influenza, Unspecified 10/06/2022(Deferr ed: Patient Refused),02/06/2022(Deferred: Patient Refused),02/06/2021(Deferred: Patient Refused),03/18/2020(Deferred: Patient Refused),11/21/2019(Deferred: Patient Refused),02/22/2017,08/12/2016, 017 Moderna SARS-CoV-2 Monovalen t Vaccination (12+ YRS) 11/10/2021,05/24/2021 Pfizer SARS-CoV-2 Monovalent Vaccination (12+ Yrs) PURPLE 12/20/2020,03/30/2020,03/03/2020 Pneumococcal Conjugate 7-Valent 10/07/2018 Pneumococcal Conjugate PCV 13 02/27/2017 Pneumococcal Polysaccharide PPV23 06/06/2018 Tdap 05/04/2020,01/12/2019 ZOSTER LIVE 02/22/2017,08/12/2016 Social History Tobacco Use Types Packs/Day Years Used Date Smoking Tobacco: Former Tobacco Cessation:Counseling Given: Not Answered OASIS D0700: Social Isolation Answer Da te Recorded Frequency of experiencing loneliness or isolatio n Never 12/14/2023 OASIS A1250: Transportation Answer Date Recorded Lack of Transportation (Medical) No 12/14/2023 Lack of Transportation (Non-Medical) No 12/14/2023 Patient Unable or Declines to Respond No 12/14/2023 OASIS B1300: Health Literacy Answer Brooks e Recorded Frequency of needing help to read materials from doctor or pharmacy Never 12/14/2023 [facility] Utilities Answer Date Recorded In the past 12 months has e [employer], oil, or water [employer] threatened to shut off services in your home? No 06/24/2024 Social Connection and Isolat ion Panel [NHANES] Answer Date Recorded In a typical week, how many times do you talk on the phone with family, friends, or neighbors? More than three times a week 06/24/2024 How often do you get togethe r with friends or relatives? More than three times a week 06/24/2024 How often do you attend chur ch or latter-day services? Never 06/24/2024 Do you belong to any clubs o r organizations such as advent groups, unions, fraternal or athletic groups, or school groups? No 06/24/2024 How often do you attend meet ings of the clubs or organizations you belong to? Never 06/24/2024 Are you , , di vorced, , never , or living with a partner? 06/24/2024 AUDIT-C Answer Date Recorded Q1: How often do you have a drink containing alcohol? 4 or more times a week 02/13/2023 Q2: How many drinks containi ng alcohol do you have on a typical day when you are drinking? 3 or 4 Q3: How often do you have si x or more drinks on one occasion? Never 02/13/2023 Overall Financial Resource Strain (CARDIA) Answe r Date Recorded How hard is it for you to pa y for the very basics like food, housing, medical care, and heating? Not hard at all 06/24/2024 PHQ-2 Answer Date Recorded PHQ-2 Total Score (If total score is 3 or more points, staff should administer the PHQ-9) 2 02/13/2023 Hunger Vital Sign Answer Date Recorded Within the past 12 months, y ou worried that your food would run out before you got the money to buy more. Never true 06/25/19 25 Within the past 12 months, t he food you bought just didn't last and you didn't have money to get more. Never true 06/24/2024 PRAPARE - Transportation Answer Date Re corded In the past 12 months, has l ack of transportation kept you from medical appointments or from getting medications? No 06/06 In the past 12 months, has l ack of transportation kept you from meetings, work, or from getting things needed for daily living? No 06/24/2024 Housing Stability Vital Sign Answer Brooks e Recorded In the last 12 months, was t here a time when you were not able to pay the mortgage or rent on time? No 06/24/2024 In the past 12 months, how m any times have you moved where you were living? 0 06/24/2024 At any time in the past 12 m [facility], were you homeless or living in a half-way (including now)? No 06/24/2024 Personal Safety Answer Date Recorded Have you ever been in or are you currently in a harmful physical or emotional relationship or is someone making you feel afraid or unsafe? Denies 06/23/2024 Sex and Gender Information Value Date Recorded Sex Assigned at Not on file Legal Sex Male 5:06 AM CUSTOMER RELATIONS ADVISOR Gender Identity Male 09/02/2021 11:12 AM CDT Sexual Orientation Not on file Last Filed Vital Signs Vital Sign Reading Time Taken Comments Blood Pressure 118/65 06/24/2024 3:34 PM CDT Pulse 95 06/24/2024 3:34 PM CDT Temperature 36.8 C (98.2 F) 06/24/2024 3:34 PM CDT Respiratory Rate 20 06/24/2024 3:34 PM CDT Oxygen Saturation 96% 06/24/2024 3:34 PM CDT Inhaled Oxygen Concentration - - Weight 97.8 kg (215 lb 9.8 oz) 06/23/2024 10:35 AM CDT Height 180.3 cm (5' 11) 06/23/2024 10:35 AM CDT Body Mass Index 30.07 06/23/2024 10:35 AM CDT Plan of Treatment Not on file Medical Devices Implanted Type Area Light Industrial Supervisor Device Identifier Shelf Expiration Date Model / Serial / Lot TouchLocal Stent Coronary Drug Eluting Rapid Exchange Synergy Megatron [id number] [place]ium [id number] - [id number] Implanted:Qty: 1 on 02/29/2024 by Jun Hwang MD at [facility] [employer] 12/11/2024 [id number] / / [id number] [employer] Angio-Seal Vip 6fr Closere Device [id number] - [id number] Implanted:Qty: 1 on 02/29/2024 by Jun Hwang MD at [facility] [employer] 06/19/2024 [id number] / / [id number] Procedures Procedure Name Priority Date/Time Associated Diagnosis Comments EGFR Routine 06/24/2024 6:05 AM CDT DIFFERENTIAL AUTO Routine 06/24/2024 6:0 5 AM CDT MAGNESIUM Routine 06/24/2024 6:05 AM CDT COMPREHENSIVE METABOLIC PANEL Routine 06/24/2024 6:05 AM CDT CBC WITH AUTO DIFFERENTIAL Routine 06/24/2024 6:05 AM CDT B ABO / RH CONFIRMATION TESTING STAT 06/23/2024 8:42 AM CDT HEMOGLOBIN AND HEMATOCRIT Timed 06/23/2024 8:42 AM CDT EGFR STAT 06/23/2024 6:22 AM CDT DIFFERENTIAL AUTO STAT 06/23/2024 6:2 2 AM CDT ANTIBODY SCREEN STAT 06/23/2024 6:22 AM CDT ABO/RH STAT 06/23/2024 6:22 AM CDT TYPE AND SCREEN STAT 06/23/2024 6:22 AM CDT LIPASE STAT 06/23/2024 6:22 AM CDT COMPREHENSIVE METABOLIC PANEL STAT 06/23/2024 6:22 AM CDT CBC WITH AUTO DIFFERENTIAL STAT 06/23/2024 6:22 AM CDT XR KNEE LEFT 1 OR 2 VIEWS Schedule Routine, Read Routine (OP Routine) 04/25/2024 1:29 PM CDT Primary osteoarthritis of left knee XR SHOULDER LEFT 2 OR MORE VIEWS Schedule Routine, Read Routine (OP Routine) 04/25/2024 1:29 PM CDT Left rotator cuff tear arthropathy [place] ARTHROCENTESIS ASPIR&/INJ MAJOR JT/BURSA W/O US Routine 04/25/2024 1:00 PM CDT Primary osteoarthritis of left knee [place] ARTHROCENTESIS ASPIR&/INJ MAJOR JT/BURSA W/O US Routine 04/25/2024 1:00 PM CDT Left rotator cuff tear arthropathy from Last 3 Months Results * eGFR (06/24/2024 6:05 AM CDT) eGFR 86 >=60 mL/min/1. 73 m2 Comment: Interpretive Data Reference Interval Normal >/= 90 mL/min/1.73m2 Mildly decreased* 60 - 89 mL/min/1.73m2 Mildly to moderately decreased 45 - 59 mL/min/1.73m2 Moderately to severely decreased 30 - 44 mL/min/1.73m2 Severely decreased 15 - 29 mL/min/1.73m2 Kidney Failure < 15 mL/min/1.73m2 *Relative to young adult level Estimated glomerular filtration rate is determined by the 2020 CKD-EPI equation recommended by the National Kidney Foundation (A Unifying Approach to GFR Estimation: Recommendations of the NKF-ASK Task Force on Reassessing the Inclusion of Race in Diagnosing Kidney Disease, JASN 2020). The CKD-EPI equation should not be used for patients with unstable renal function and has not been validated in children and those over 70. Current interpretive data was last reviewed 2020. Blood 06/24/2024 6:05 AM CDT 06/24/2024 6:13 AM CDT us Blaze Cade MD LAB BLOOD ORDERABLES Final Resu lt [facility] ([facility]) [facility] [place] [address] * (ABNORMAL) Differential, auto (06/24/2024 6:05 AM CDT) Neutrophil abs 6.85(H) 1.50 - 6.50 K/cumm Imm gran abs 0.04 0.00 - 0.10 K/cumm [facility] ([facility]) Lymphocyte abs 1.40 0.80 - 3.30 K/cumm [facility] ([place]) Monocyte abs 1.27(H) 0.20 - 0.80 K/cumm [facility] ([place]) Eosinophil abs 0.27 0.00 - 0.50 K/cumm [facility] ([place]) Basophil abs 0.05 0.00 - 0.10 K/cumm [facility] ([place]) Neutrophil pct 69.3 % [facility] ([place]) Comment: Interpretive Data Percent cell count reference ranges are not reported, since discordance with absolute values may lead to misinterpretation of CBC data. Current Interpretive Data was last revised on 2017. Imm gran pct 0.4 % [facility] ([facility]) Comment: Interpretive Data Percent cell count reference ranges are not reported, since discordance with absolute values may lead to misinterpretation of CBC data. Current Interpretive Data was last revised on 2017. Lymphocyte pct 14.2 % [facility] ([facility]) Comment: Interpretive Data Percent cell count reference ranges are not reported, since discordance with absolute values may lead to misinterpretation of CBC data. Current Interpretive Data was last revised on 2017. Monocyte pct 12.9 % [facility] ([facility]) Comment: Interpretive Data Percent cell count reference ranges are not reported, since discordance with absolute values may lead to misinterpretation of CBC data. Current Interpretive Data was last revised on 2017. Eosinophil pct 2.7 % [facility] ([facility]) Comment: Interpretive Data Percent cell count reference ranges are not reported, since discordance with absolute values may lead to misinterpretation of CBC data. Current Interpretive Data was last revised on 2017. Basophil pct 0.5 % [facility] ([facility]) Comment: Interpretive Data Percent cell count reference ranges are not reported, since discordance with absolute values may lead to misinterpretation of CBC data. Current Interpretive Data was last revised on 2017. Blood 06/24/2024 6:05 AM CDT 06/24/2024 6:13 AM CDT us Blaze Cade MD LAB BLOOD ORDERABLES Final Resu lt [facility] ([facility]) [facility] [place] [address] * (ABNORMAL) CBC with auto differential (06/24/2024 6:05 AM CDT) WBC 9.88 3.80 - 9.90 K/cumm Hgb 11.7(L) 13.0 - 17.5 g/dL [facility] ([place]) Hct 36.3(L) 38.9 - 50.3 % [facility] ([place]) Plt 150 150 - 400 K/cumm [facility] ([place]) MPV 8.4(L) 9.1 - 12.3 fL [facility] ([place]) RBC 3.68(L) 4.30 - 5.80 M/cumm [facility] ([place]) MCV 98.6(H) 81.3 - 96.4 fL [facility] ([place]) MCH 31.8 27.1 - 33.3 pg [facility] ([place]) MCHC 32.2(L) 32.3 - 35.7 g/dL [facility] ([place]) RDW CV 12.9 11.1 - 14.9 % [facility] ([place]) RDW SD 46.9 35.7 - 48.1 fL [facility] ([place]) NRBC abs 0.00 0.00 - 0.01 K/cumm [facility] ([place]) Blood 06/24/2024 6:05 AM CDT 06/24/2024 6:13 AM CDT us Blaze Cade MD LAB BLOOD ORDERABLES Final Resu lt [facility] ([place]) [facility] [place] [address] * Magnesium (06/24/2024 6:05 AM CDT) Pathologist [facility] Magnesium 1.7 1.4 - 2.5 mg/dL Blood 06/24/2024 6:05 AM CDT 06/24/2024 6:13 AM CDT us Blaze Cade MD LAB BLOOD ORDERABLES Final Resu lt [facility] ([place]) [facility] Department [place] [address] * (ABNORMAL) Comprehensive metabolic panel (06/24/2024 6:05 AM CDT) Sodium 134(L) 135 - 145 mmol/L Potassium, pl 3.6 3.3 - 4.9 mmol/L [facility] ([place]) Chloride 95(L) 97 - 110 mmol/L [facility] ([place]) CO2 28 22 - 32 mmol/L [facility] ([place]) Anion gap 11 2 - 15 mmol/L [facility] ([place]) BUN 23 6 - 25 mg/dL [facility] ([place]) Creatinine 0.80 0.80 - 1.30 mg/dL [facility] ([place]) Comment:Icteric sample, test results may be affected. Glucose 97 70 - 199 mg/dL [facility] ([place]) Comment: Interpretive Data Fasting glucose >/= 126 mg/dl is diagnostic for diabetes. Fasting is defined as no caloric intake for at least 8 hours. Fasting glucose between 100 mg/dl to 125 mg/dl is diagnostic of prediabetes. In a patient with classic symptoms of hyperglycemia or hyperglycemic crisis, a random glucose >/= 200 mg/dl is diagnostic for diabetes. In the absence of unequivocal hyperglycemia, results should be confirmed by repeat testing. The classification and Diagnosis of Diabetes Diabetes Care 2021; 46: S19-S40. Current interpretive data was last revised 2022. Calcium 9.4 8.5 - 10.3 mg/dL [facility] ([place]) Bilirubin, total 1.0 0.1 - 1.2 mg/dL [facility] ([place]) Protein, pl 5.9(L) 6.5 - 8.5 g/dL [facility] ([place]) Albumin 3.6 3.5 - 5.0 g/dL [facility] ([place]) Alk phos 68 40 - 130 Units/L [facility] ([place]) ALT 7 7 - 55 Units/L [facility] ([place]) AST 11 10 - 50 Units/L [facility] ([place]) Blood 06/24/2024 6:05 AM CDT 06/24/2024 6:13 AM CDT us Blaze Cade MD LAB BLOOD ORDERABLES Final Resu lt [facility] ([facility]) [facility] [place] [address] * ABO / Rh Confirmation Testing (06/23/2024 8:42 AM CDT) ABO/Rh Confirmation O Positive [facility] Blood 06/23/2024 8:42 AM CDT 06/23/2024 8:46 AM CDT us Néstor Benitez MD LAB BLOOD ORDERABLE S Final Result Performing Organization Address [facility]/ZIP Co de Phone Number [facility] ([facility]) [facility] [place] [address] [facility] * Hemoglobin and hematocrit (06/23/2024 8:42 AM CDT) Pathologist [facility] Hgb 13.5 13.0 - 17.5 g/dL Hct 41.9 38.9 - 50.3 % [facility] ([facility]) Blood 06/23/2024 8:42 AM CDT 06/23/2024 8:46 AM CDT us Néstor Benitez MD LAB BLOOD ORDERABLE S Final Result Performing Organization Address City/[facility]/ZIP Co de Phone Number [facility] ([place]) [facility] [place] [address] * eGFR (06/23/2024 6:22 AM CDT) eGFR 86 >=60 mL/min/1. 73 m2 Comment: Interpretive Data Reference Interval Normal >/= 90 mL/min/1.73m2 Mildly decreased* 60 - 89 mL/min/1.73m2 Mildly to moderately decreased 45 - 59 mL/min/1.73m2 Moderately to severely decreased 30 - 44 mL/min/1.73m2 Severely decreased 15 - 29 mL/min/1.73m2 Kidney Failure < 15 mL/min/1.73m2 *Relative to young adult level Estimated glomerular filtration rate is determined by the 2020 CKD-EPI equation recommended by the National Kid[employer] (A Unifying Approach to GFR Estimation: Recommendations of the NKF-ASK Task Force on Reassessing the Inclusion of Race in Diagnosing Kidney Disease, JASN 2020). The CKD-EPI equation should not be used for patients with unstable renal function and has not been validated in children and those over 70. Current interpretive data was last reviewed 2020. Blood 06/23/2024 6:22 AM CDT 06/23/2024 6:25 AM CDT us Néstor Benitez MD LAB BLOOD ORDERABLE S Final Result [facility] ([place]) [address] [facility] [place] [address] * (ABNORMAL) Differential, auto (06/23/2024 6:22 AM CDT) Neutrophil abs 10.43(H) 1.50 - 6.50 K/cumm Imm gran abs 0.05 0.00 - 0.10 K/cumm [facility] ([place]) Lymphocyte abs 1.23 0.80 - 3.30 K/cumm [facility] ([place]) Monocyte abs 1.07(H) 0.20 - 0.80 K/cumm [facility] ([place]) Eosinophil abs 0.02 0.00 - 0.50 K/cumm [facility] ([place]) Basophil abs 0.04 0.00 - 0.10 K/cumm [facility] ([place]) Neutrophil pct 81.2 % [facility] ([place]) Comment: Interpretive Data Percent cell count reference ranges are not reported, since discordance with absolute values may lead to misinterpretation of CBC data. Current Interpretive Data was last revised on 2017. Imm gran pct 0.4 % [facility] ([place]) Comment: Interpretive Data Percent cell count reference ranges are not reported, since discordance with absolute values may lead to misinterpretation of CBC data. Current Interpretive Data was last revised on 2017. Lymphocyte pct 9.6 % [facility] ([place]) Comment: Interpretive Data Percent cell count reference ranges are not reported, since discordance with absolute values may lead to misinterpretation of CBC data. Current Interpretive Data was last revised on 2017. Monocyte pct 8.3 % [facility] ([place]) Comment: Interpretive Data Percent cell count reference ranges are not reported, since discordance with absolute values may lead to misinterpretation of CBC data. Current Interpretive Data was last revised on 2017. Eosinophil pct 0.2 % [facility] ([place]) Comment: Interpretive Data Percent cell count reference ranges are not reported, since discordance with absolute values may lead to misinterpretation of CBC data. Current Interpretive Data was last revised on 2017. Basophil pct 0.3 % [facility] ([place]) Comment: Interpretive Data Percent cell count reference ranges are not reported, since discordance with absolute values may lead to misinterpretation of CBC data. Current Interpretive Data was last revised on 2017. Blood 06/23/2024 6:22 AM CDT 06/23/2024 6:24 AM CDT us Néstor Benitez MD LAB BLOOD ORDERABLE S Final Result [facility] ([place]) [facility] [place] [address] * (ABNORMAL) CBC with auto differential (06/23/2024 6:22 AM CDT) WBC 12.84(H) 3.80 - 9.90 K/cumm Hgb 14.4 13.0 - 17.5 g/dL [facility] ([place]) Hct 44.4 38.9 - 50.3 % [facility] ([place]) Plt 178 150 - 400 K/cumm [facility] ([place]) MPV 8.4(L) 9.1 - 12.3 fL [facility] ([place]) RBC 4.54 4.30 - 5.80 M/cumm [facility] ([place]) MCV 97.8(H) 81.3 - 96.4 fL [facility] ([place]) MCH 31.7 27.1 - 33.3 pg [facility] ([place]) MCHC 32.4 32.3 - 35.7 g/dL [facility] ([place]) RDW CV 12.9 11.1 - 14.9 % [facility] ([place]) RDW SD 46.3 35.7 - 48.1 fL [facility] ([place]) NRBC abs 0.00 0.00 - 0.01 K/cumm [facility] ([place]) Blood 06/23/2024 6:22 AM CDT 06/23/2024 6:24 AM CDT us Néstor Benitez MD LAB BLOOD ORDERABLE S Final Result [facility] ([place]) [address] [facility] [place] [place] [address] * ABO/Rh (06/23/2024 6:22 AM CDT) ABO/Rh O Positive Blood 06/23/2024 6:22 AM CDT 06/23/2024 6:24 AM CDT Narrative [facility] ([place]) - 06/23/2024 7:45 AM CDT Has the patient had Daratumumab or Isatuximab in the past 6 months?->Unknown us Néstor Benitez MD LAB BLOOD BANK TEST ORDERABLES Final Result [facility] ([place]) [address] [facility] [place] [place] [address] * Antibody screen (06/23/2024 6:22 AM CDT) Kasey, indirect, Gel Interpretation Negative ABSC Blood 06/23/2024 6:22 AM CDT 06/23/2024 6:24 AM CDT Narrative [facility] ([place]) - 06/23/2024 7:45 AM CDT Has the patient had Daratumumab or Isatuximab in the past 6 months?->Unknown Néstor Benitez MD LAB BLOOD BANK TEST ORDERABLES Final Result Performing Organization Address City/[facility]/ZIP Co de Phone Number [facility] ([place]) 1 [facility] [place] [address] * Lipase (06/23/2024 6:22 AM CDT) Lipase 23 10 - 99 Units/L Blood 06/23/2024 6:22 AM CDT 06/23/2024 6:25 AM CDT Néstor Benitez MD LAB BLOOD ORDERABLE S Final Result Performing Organization Address [facility] de Phone Number [facility] ([place]) [address] [facility] [place] [address] * (ABNORMAL) Comprehensive metabolic panel (06/23/2024 6:22 AM CDT) Sodium 137 135 - 145 mmol/L Potassium, pl 4.2 3.3 - 4.9 mmol/L [facility] ([place]) Chloride 95(L) 97 - 110 mmol/L [facility] ([place]) CO2 28 22 - 32 mmol/L [facility] ([place]) Anion gap 15 2 - 15 mmol/L [facility] ([place]) BUN 17 6 - 25 mg/dL [facility] ([place]) Creatinine 0.78(L) 0.80 - 1.30 mg/dL [facility] ([place]) Comment:Icteric sample, test results may be affected. Glucose 128 70 - 199 mg/dL [facility] ([place]) Comment: Interpretive Data Fasting glucose >/= 126 mg/dl is diagnostic for diabetes. Fasting is defined as no caloric intake for at least 8 hours. Fasting glucose between 100 mg/dl to 125 mg/dl is diagnostic of prediabetes. In a patient with classic symptoms of hyperglycemia or hyperglycemic crisis, a random glucose >/= 200 mg/dl is diagnostic for diabetes. In the absence of unequivocal hyperglycemia, results should be confirmed by repeat testing. The classification and Diagnosis of Diabetes Diabetes Care 2021; 46: S19-S40. Current interpretive data was last revised 2022. Calcium 9.9 8.5 - 10.3 mg/dL [facility] ([place]) Bilirubin, total 1.2 0.1 - 1.2 mg/dL [facility] ([place]) Protein, pl 7.1 6.5 - 8.5 g/dL [facility] ([place]) Albumin 4.0 3.5 - 5.0 g/dL [facility] ([place]) Alk phos 90 40 - 130 Units/L [facility] ([place]) ALT 9 7 - 55 Units/L [facility] ([place]) AST 15 10 - 50 Units/L [facility] ([place]) Comment:Slightly Hemolyzed S pecimen Blood 06/23/2024 6:22 AM CDT 06/23/2024 6:25 AM CDT us Néstor Benitez MD LAB BLOOD ORDERABLE S Final Result [facility] ([place]) [facility] [place] [address] * XR Knee Left 1 or 2 Views (04/25/2024 1:29 PM CDT) Anatomical Region Laterality Modality Lower Extremities, Knee Left Digital Radiography Narrative 04/25/2024 2:01 PM CDT XR of the left knee are reviewed and demonstrate no acute fractures or destructive osseous lesions. Advanced tricompartmental degenerative changes present with joint space narrowing, osteophyte formation, and subchondral sclerosis. Bone on bone changes tibiofemoral compartments. us Macey PERRY IMG XR PROCEDURES Final Result * XR Shoulder Left 2 or More Views (04/25/2024 1:29 PM CDT) Anatomical Region Laterality Modality Upper Extremities, Shoulder Left Digi johnna Radiography Narrative 04/25/2024 2:01 PM CDT Radiographs of the left shoulder reviewed, interpreted, and compared with previous views. 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 Macey PERRY IMG XR PROCEDURES Final Result * [place] ARTHROCENTESIS ASPIR&/INJ MAJOR JT/BURSA W/O US (04/25/2024 1:00 PM CDT) Macey Oreilly PA - 04/25/2024 1:00 PM CDT Macey Cota PA 04/25/2024 2:02 PM Large Joint (Hip, Knee, Shoulder) Injection: L knee Performed by: Macey Cota PA Authorized by: Macey Cota PA Large Joint Injection/Aspiration: Consent Given by: Patient Site marked: the procedure site was marked Verbal consent obtained: Yes Supporting Documentation: Indications: Pain Procedure Details: Location: Knee Site: L knee Prep: patient was prepped and draped in usual sterile fashion Needle Size: 22 G Ultrasound guided: No Fluroscopic guidance: No Medications: 3 mL lidocaine 20 mg/mL (2 %); 80 mg methylPREDNISolone acetate 80 mg/mL Patient tolerance: Patient tolerated the procedure well with no immediate complications Result [facility] Macey PERRY IN CLINIC/BEDSIDE ORDER ESTRELLITA Final Result * [place] ARTHROCENTESIS ASPIR&/INJ MAJOR JT/BURSA W/O US (04/25/2024 1:00 PM CDT) Macey Oreilly PA - 04/25/2024 1:00 PM CDT Macey Cota PA 04/25/2024 2:02 PM Large Joint (Hip, Knee, Shoulder) Injection: L glenohumeral Performed by: Macey Cota PA Authorized by: Macey Cota PA Large Joint Injection/Aspiration: Consent Given by: Patient Site marked: the procedure site was marked Timeout: prior to procedure the correct patient, procedure, and site was verified Verbal consent obtained: Yes Supporting Documentation: Indications: Pain Procedure Details: Location: Shoulder Site: L glenohumeral Prep: patient was prepped and draped in usual sterile fashion Needle Size: 22 G Approach: Posterior Ultrasound guided: No Fluroscopic guidance: No Medications: 80 mg methylPREDNISolone acetate 80 mg/mL; 3 mL lidocaine 20 mg/mL (2 %) Patient tolerance: Patient tolerated the procedure well with no immediate complications Macey PERRY IN CLINIC/BEDSIDE ORDER ESTRELLITA Final Result from Last 3 Months Insurance [facility] Address: [address] [place] [address] UHC MEDICARE ADVANTAGE [facility] MEDICARE [employer] MEDICARE Advance Directives For more information, please contact: [phone] Documents on File Type Date Recorded 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 Use antibiotics, IV Fluids, and medical treatment unless specifically selected below: No intubation * Full Code Date Activated Date Inactivated Comments 02/29/2024 11:52 AM 02/29/2024 6:34 PM * Full Code Date Activated Date Inactivated Comments 01/15/2024 1:19 PM 01/20/2024 8:58 PM * LIMITED - No CPR Date Activated Date Inactivated Comments 01/12/2024 2:07 PM 01/15/2024 1:19 PM Question Answer Comments Provide aggressive medical m anagement before a full cardiopulmonary arrest occurs. Use antibiotics, IV Fluids, and medical treatment unless specifically selected below: No intubation Care Teams Food And Drug Research Scientist Relationship Specialty Start Date End Date Antelmo Aguilar MD [address] [facility] [address] [place] [address] PCP - General Family Medicine 06/23/24 Wilbert Bucio MD Consulting Physician Nephrology 01/06/21 Gabriel Hand MD [facility] [place] [address] [place] [address] Consulting Physician Ophthalmology 01/06/21 Heron Wiggins MD [address] [place] [address] Consulting Physician Orthopedic Surgery 01/06/21 Jw Pascual MD [address] [facility] [address] [place] [address] Cardiology 09/02/21
--- OUTSIDE RECORDS SUMMARY | 2024-06-30 19:17 | XMS_ITS | Clinical Summary ---
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 30 tablet 1 01/21/20 24 [...] and vomiting 06/23/2024 Abdominal bloating 06/23/2024 [place]cl [place] art of left leg w ulcer of heel an d midfoot 02/19/2024 Chronic venous stasis dermatitis of both lower e xtremities 02/19/2024 Frequent falls 01/11/2024 Iron deficiency anemia 01/11/2024 Stiffness of unspecified shoulder, not elsewhere classified 09/07/2023 Unsteadiness on feet 09/07/2023 Other fatigue 09/07/2023 Weakness 09/07/2023 Chronic atrial fibrillation 02/13/2023 Encounter for Medicare annual wellness exam 02/08 Assessment & Plan (03/09/2022 12:48 PM EVENT PLANNER): A(n) yearly Medicare Annual Wellness Visit has [...] at this point due to edge retraction [facility]? Assessment & Plan (02/25/2022 2:26 PM EVENT PLANNER): Silvadene to wound daily after cleansing (OTC [...] resolves Assessment & Plan (02/10/2021 12:15 PM EVENT PLANNER): Monitor BP- 1-2 times daily, get me the numbers over the next week. If above 160/90, call. Will continue lisinopril at 30 mg dailly Go to daily furosemide Labs reviewed. Kidney function looks fine. Liver function is acceptable. We will watch the bilirubin, but that is only slightly elevated Assessment & Plan (01/10/2021 11:00 AM EVENT PLANNER): BP journal requested over the next week, [...] 01/10/2021 05/04/2021 Acute kidney failure 08/20/2020 022 Encounters Date Type Department Care Team Description 06/24/2024 7:00 PM CDT - 06/24/2024 11:59 PM CDT Hospital Encounter [facility] Discharge Disposition: Discharge to home or self care 06/23/2024 6:08 AM CDT - 06/24/2024 7:15 PM CDT Hospital Encounter [facility] Acute Medicine [address] [place] [address] Néstor Benitez MD Nikolic, Jelena, MD UGIB (upper gastrointestinal bleed) (Primary Dx); Esophagitis; Coffee ground emesis; Nausea and vomiting, unspecified vomiting type; Abdominal bloating Discharge Disposition: Discharge to [facility] 04/25/2024 1:20 PM CDT Ancillary Procedure [facility] Imaging at [address] [phone] 04/25/2024 1:15 PM CDT Ancillary Procedure [facility] Imaging at [address] [address] Left rotator cuff tear arthropathy 04/25/2024 1:00 PM CDT Office Visit [facility] Orthopedic and Sports Medicine [address] [place] [phone] Macey Cota PA Primary osteoarthritis of left knee (Primary Dx); Left rotator cuff tear arthropathy 04/25/2024 Telephone [facility] Gastroenterology at [address] [place] [address] Martha Umanzor 04/19/2024 Telephone [facility] Orthopedics and Sports Medicine [address] [place] [address] [address] [place] [address] Macey Cota PA 04/08/2024 10:00 AM EVENT PLANNER Office Visit [employer] at [facility] [address] [place] [address] Jun Hwang MD [place] art of left leg w ulcer of heel and midfoot (HCC) (Primary Dx); Chronic venous stasis dermatitis of both lower extremities [I87.2]; Chronic atrial fibrillation (HCC) from Last 3 Months Immunizations Immunization Administration Dates Next Due Influenza [...] PPV23 06/06/2018 Tdap 05/04/2020,01/12/2019 ZOSTER LIVE 02/22/2017,08/12/2016 Surgical History Surgery Date Site/Laterality Comments EYE SURGERY 02/06/2017 - 02/05/2018 Left removed silicone RETINAL DETACHMENT SURGERY 02/06/2017 - 02/05/2018 Left Medical History Medical History Date Comments Hyperlipidemia 10/31/2016 Primary hypertension 08/08/2016 Arteriosclerosis of coronary artery 08/28/2018 Obesity 03/05/2018 Benign hypertensive renal disease 08/08/2016 Low sodium levels Family History Relation Name Status Comments Father Mother Social History Tobacco Use Types Packs/Day Years [...] materials from doctor or pharmacy Never 12/14/2023 [facility] Utilities Answer Date Recorded In the past 12 months has th e electric, gas, oil, or water company threatened to shut off services in your [...] often do you attend chur ch or voodoo services? Never 06/24/2024 Do you belong to any clubs o r organizations such as roman catholic groups, unions, fraternal or athletic groups, or [...] any time in the past 12 m [facility], were you homeless or living in a group home (including now)? No 06/24/2024 Personal Safety Answer Date Recorded Have you ever been in or are you currently in a harmful physical or emotional relationship or is someone making you feel afraid or unsafe? Denies 06/23/2024 Sex and Gender Information Value Date Recorded Sex Assigned at Not on file Legal Sex Male 5:06 AM EVENT PLANNER Gender Identity Male 09/02/2021 11:12 AM CDT Sexual Orientation Not on file Obstetrics History Last Filed Vital Signs Vital Sign Reading [...] 06/23/2024 10:35 AM CDT Plan of Treatment Health Maintenance Due Date Last Done Comments Hepatitis B Screening 1953 Zoster Vaccine (2 of 3) 04/19/2017 02/22/2017, 08/12 Well Visit 65+ 03/07/2023 03/07/2022 Covid-19 Vaccine ( season) 2023 08/01/2022, 11/10/2021, 11/10/2021, Additional history exists Depression Screening 02/14/2024 02/13/2023, 11/24/2022, 11/24/2022, Additional history exists Influenza Vaccine (Season Ended) 2024 11/08/2021, 11/19/2020, 11/15/2017, Additional history exists Fall Risk Assessment 06/24/2025 06/24/2024, 02/13/2023, 11/24/2022, Additional history exists DTaP/Tdap/Td Vaccine (3 - Td or Tdap) 05/04/2030 05/04/2020, 01/12/2019 Pneumococcal vaccine 65+ Completed 019, 06/06/2018, 02/27/2017 Medical Devices Implanted Type Area Automobile Radio Repairer Device Identifier Shelf Expiration Date Model / Serial / Lot Chronix Biomedical Stent Coronary Drug Eluting Rapid Exchange Synergy Megatron [id number] Resighini Chromium [id number] - [id number] Implanted:Qty: 1 on 02/29/2024 by Jun Hwang MD at [facility] [employer] Ross 12/11/2024 [id number] / / [id number] [employer] Angio-Seal Vip 6fr Closere Device [id number] - [id number] Implanted:Qty: 1 on 02/29/2024 by Jun Hwang MD at [facility] [employer] 06/19/2024 [id number] / / [id number] Procedures Procedure Name Priority Date/Time Associated Diagnosis [...] PM CDT Left rotator cuff tear arthropathy AK ARTHROCENTESIS ASPIR&/INJ MAJOR JT/BURSA W/O US Routine 04/25/2024 1:00 PM CDT Primary osteoarthritis of left knee AK ARTHROCENTESIS ASPIR&/INJ MAJOR JT/BURSA W/O US Routine [...] BLOOD ORDERABLES Final Resu lt [facility] ([place]) [address] [place] [address] * (ABNORMAL) Differential, auto (06/24/2024 6:05 AM CDT) Neutrophil abs 6.85(H) 1.50 - 6.50 K/cumm Imm gran abs 0.04 0.00 - 0.10 K/cumm [facility] ([place]) Lymphocyte abs 1.40 0.80 - 3.30 [...] revised on 2017. Basophil pct 0.5 % [facility] ([place]) Comment: Interpretive Data Percent cell count reference ranges are not reported, since discordance with absolute values may lead to misinterpretation of CBC data. Current Interpretive Data was last revised on 2017. Blood 06/24/2024 6:05 AM CDT 06/24/2024 6:13 AM CDT us Blaze Cade MD LAB BLOOD ORDERABLES Final Resu lt [facility] ([place]) [address] [place] [address] * (ABNORMAL) CBC with auto differential (06/24/2024 6:05 AM CDT) WBC 9.88 3.80 - 9.90 K/cumm Hgb 11.7(L) 13.0 - 17.5 g/dL [facility] ([place]) Hct 36.3(L) 38.9 - 50.3 % [facility] ([place]) Plt 150 150 - 400 K/cumm [facility] ([place]) MPV 8.4(L) 9.1 - 12.3 fL [facility] ([place]) RBC 3.68(L) 4.30 - 5.80 M/cumm [facility] ([place]) MCV 98.6(H) 81.3 - 96.4 fL [facility] ([place]) MCH 31.8 27.1 - 33.3 pg [facility] ([place]) MCHC 32.2(L) 32.3 - 35.7 g/dL [facility] ([place]) RDW CV 12.9 11.1 - 14.9 % [facility] ([place]) RDW SD 46.9 35.7 - 48.1 fL [facility] ([place]) NRBC abs 0.00 0.00 - 0.01 K/cumm [facility] ([place]) Blood 06/24/2024 6:05 AM CDT 06/24/2024 6:13 AM CDT Blaze Cade MD LAB BLOOD ORDERABLES Final Resu lt Performing Organization Address City/[facility]/ZIP Co de Phone Number [facility] ([place]) [address] [facility] [place] [address] * Magnesium (06/24/2024 6:05 AM CDT) Pathologist [facility] Magnesium 1.7 1.4 - 2.5 mg/dL Blood 06/24/2024 6:05 AM CDT 06/24/2024 6:13 AM CDT Blaze Cade MD LAB BLOOD ORDERABLES Final Resu lt [facility] ([place]) [address] [facility] [place] [address] * (ABNORMAL) Comprehensive metabolic panel (06/24/2024 6:05 AM CDT) Sodium 134(L) 135 - 145 mmol/L Potassium, pl 3.6 3.3 - 4.9 mmol/L [facility] ([place]) Chloride 95(L) 97 - 110 [...] ([place]) AST 11 10 - 50 Units/L [facility] ([place]) Blood 06/24/2024 6:05 AM CDT 06/24/2024 6:13 AM CDT us Blaze Cade MD LAB BLOOD ORDERABLES Final Resu lt [facility] ([place]) [address] [place] [address] * ABO / Rh Confirmation Testing (06/23/2024 8:42 AM CDT) ABO/Rh Confirmation O Positive [facility] Blood 06/23/2024 8:42 AM CDT 06/23/2024 8:46 AM CDT Néstor Benitez MD LAB BLOOD ORDERABLE S Final Result [facility] ([place] [address] [facility] [place] [address] [facility] * Hemoglobin and hematocrit (06/23/2024 8:42 AM CDT) Hgb 13.5 13.0 - 17.5 g/dL Hct 41.9 38.9 - 50.3 % [facility] ([place]) Blood 06/23/2024 8:42 AM CDT 06/23/2024 8:46 AM CDT Néstor Benitez MD LAB BLOOD ORDERABLE S Final Result Performing Organization Address City/[facility]/ZIP Co de Phone Number [facility] ([place] [address] [facility] [place] [address] * eGFR (06/23/2024 6:22 AM CDT) eGFR [...] MD LAB BLOOD ORDERABLE S Final Result [facility] ([place]) [address] [place] [address] * (ABNORMAL) Differential, auto (06/23/2024 6:22 AM CDT) Neutrophil abs 10.43(H) 1.50 - 6.50 K/cumm Imm gran abs 0.05 0.00 - 0.10 K/cumm [facility] ([place]) Lymphocyte abs 1.23 0.80 - 3.30 K/cumm [facility] ([place]) Monocyte abs 1.07(H) 0.20 - 0.80 K/cumm [facility] ([place]) Eosinophil abs 0.02 0.00 - 0.50 K/cumm [facility] ([place]) Basophil abs 0.04 0.00 - 0.10 K/cumm [facility] ([place]) Neutrophil pct 81.2 % [facility] ([place]) Comment: Interpretive Data Percent cell count reference [...] revised on 2017. Basophil pct 0.3 % [facility] ([place]) Comment: Interpretive Data Percent cell count reference ranges are not reported, since discordance with absolute values may lead to misinterpretation of CBC data. Current Interpretive Data was last revised on 2017. Blood 06/23/2024 6:22 AM CDT 06/23/2024 6:24 AM CDT us Néstor Benitez MD LAB BLOOD ORDERABLE S Final Result [facility] ([place] [address] [place] [address] * (ABNORMAL) CBC with auto differential (06/23/2024 6:22 AM CDT) WBC 12.84(H) 3.80 - 9.90 K/cumm Hgb 14.4 13.0 - 17.5 g/dL [facility] ([place]) Hct 44.4 38.9 - 50.3 % [facility] ([place]) Plt 178 150 - 400 K/cumm [facility] ([place]) MPV 8.4(L) 9.1 - 12.3 fL [facility] ([place]) RBC 4.54 4.30 - 5.80 M/cumm [facility] ([place]) MCV 97.8(H) 81.3 - 96.4 fL [facility] ([place]) MCH 31.7 27.1 - 33.3 pg [facility] ([place]) MCHC 32.4 32.3 - 35.7 g/dL [facility] ([place]) RDW CV 12.9 11.1 - 14.9 % [facility] ([place]) RDW SD 46.3 35.7 - 48.1 fL [facility] ([place]) NRBC abs 0.00 0.00 - 0.01 K/cumm [facility] ([place]) Blood 06/23/2024 6:22 AM CDT 06/23/2024 6:24 AM CDT Néstor Benitez MD LAB BLOOD ORDERABLE S Final Result [facility] ([place]) [address] [facility] [place] [address] * ABO/Rh (06/23/2024 6:22 AM CDT) ABO/Rh O Positive Blood 06/23/2024 6:22 AM CDT 06/23/2024 6:24 AM CDT Narrative [facility] ([place]) - 06/23/2024 7:45 AM CDT Has the patient had Daratumumab or Isatuximab in the past 6 months?->Unknown us Néstor Benitez MD LAB BLOOD BANK TEST ORDERABLES Final Result [facility] ([place]) [address] [place] [address] [place] [address] * Antibody screen (06/23/2024 6:22 AM CDT) Kasey, indirect, Gel Interpretation Negative ABSC Blood 06/23/2024 6:22 AM CDT 06/23/2024 6:24 AM CDT Narrative [facility] ([place]) - 06/23/2024 7:45 AM CDT Has the patient had Daratumumab or Isatuximab in the past 6 months?->Unknown Néstor Benitez MD LAB BLOOD BANK TEST ORDERABLES Final Result [facility] ([place] [address] [facility] [place] [address] * Lipase (06/23/2024 6:22 AM CDT) Lipase 23 10 - 99 Units/L Blood 06/23/2024 6:22 AM CDT 06/23/2024 6:25 AM CDT us Néstor Benitez MD LAB BLOOD ORDERABLE S Final Result [facility] ([place]) [address] [place] [address] * (ABNORMAL) Comprehensive metabolic panel (06/23/2024 6:22 AM CDT) Sodium 137 135 - 145 mmol/L Potassium, pl 4.2 3.3 - 4.9 mmol/L [facility] ([place]) Chloride 95(L) 97 - 110 mmol/L [facility] ([place]) CO2 28 22 - 32 mmol/L [facility] ([place]) Anion gap 15 2 - 15 mmol/L [facility] ([place]) BUN 17 6 - 25 mg/dL [facility] ([place]) Creatinine 0.78(L) 0.80 - 1.30 mg/dL [facility] ([place]) Comment:Icteric sample, test results may be affected. Glucose 128 70 - 199 mg/dL [facility] ([place]) [...] LAB BLOOD ORDERABLE S Final Result [facility] ([place]) [address] [place] [address] * XR Knee Left 1 or 2 Views (04/25/2024 1:29 PM CDT) Anatomical Region Laterality Modality Lower Extremities, Knee Left Digital Radiography Narrative 04/25/2024 2:01 PM CDT XR of the left knee are reviewed and demonstrate no acute fractures or destructive osseous lesions. Advanced tricompartmental degenerative changes present with joint space narrowing, osteophyte formation, and subchondral sclerosis. Bone on bone changes tibiofemoral compartments. Macey PERRY IMG XR PROCEDURES Final Result * XR Shoulder Left 2 or More Views (04/25/2024 1:29 PM CDT) Anatomical Region Laterality Modality Upper Extremities, Shoulder Left Digi johnna Radiography Narrative 04/25/2024 2:01 PM CDT Radiographs of the left shoulder reviewed, interpreted, and compared with previous views. There are progressive, advanced, end-stage degenerative changes of the glenohumeral joint, noted with [id number] joint space narrowing, glenoid dysplasia, and flattening and cystic changes of the humeral head. Macey PERRY IMG XR PROCEDURES Final Result * [place] ARTHROCENTESIS ASPIR&/INJ MAJOR JT/BURSA W/O US (04/25/2024 1:00 PM CDT) Narrative Macey Cota PA - 04/25/2024 1:00 PM CDT Macey [...] the procedure well with no immediate complications us Macey PERRY IN CLINIC/BEDSIDE ORDER ESTRELLITA Final Result * AK ARTHROCENTESIS ASPIR&/INJ MAJOR JT/BURSA W/O US (04/25/2024 1:00 PM CDT) Narrative Macey Cota PA - 04/25/2024 1:00 PM CDT Macey [...] Final Result from Last 3 Months Insurance [facility] MEDICARE [facility] Address: [address] [place] [address] UHC MEDICARE ADVANTAGE [facility] Address: [address] [address] [place] [address] FOR[facility]LY [facility] MEDICARE [facility] MED[facility] Address: [address] [place] [address] [employer] MEDICARE Advance Directives For more information, please contact: [phone] Documents on File Type Date Recorded Patient Emergency Room Physician Expl anation ADVANCE DIRECTIVE 01/22/2024 11:35 AM [...] specifically selected below: No intubation Care Teams Watcher Lookout Tower Relationship Specialty Start Date End Date Antelmo Aguilar MD [address] [facility] [address] [place] [address] PCP - General Family Medicine 06/23/24 Wilbert Bucio MD Consulting Physician Nephrology 01/06/21 Gabriel Hand MD [address] [place] [address] [place] [address] Consulting Physician Ophthalmology 01/06/21 Heron Wiggins MD [address] [place] [address] Consulting Physician Orthopedic Surgery 01/06/21 Jw Pascual MD [address] [facility] [address] [place] [address] Cardiology 09/02/21
--- OUTSIDE RECORDS SUMMARY | 2024-06-30 19:17 | XMS_ITS ---
Author Name Auto Generated, Auto Generated Organization [facility] Address [address] [place] [address] Phone [phone] Care Team Providers Care Inductor Tester Name Role Phone Fab Turnercorey Quigley Unavailable [phone] NathanielUlyssesJuanita Unavailable Juan Bowenelle Unavailable [phone] Lauren Antelmo Unavailable [phone] Functional Status No Results Mental Status No Results Allergies and Intolerances Name Onset Date Reaction Severity No Known Allergies (Allergy) Sat Jan 19 16:19:00 EST 2023 Encounters Program Name Primary Diagnosis Admission Date/Time Dis charge Date/Time Rehabilitation [facility] MonSep 05 20:00:00 EDT 2023Dec 04 19:59:00 EDT 2023 null Sat Oct 02 04:00 :00 EDT 2015Mar 08 03:00:00 EST 2024 [facility] Anemia, unspecified Sat Jan 19 11:30:00 EST 2023 Immunizations Name Dates Status TST-PPD intradermal Kelsy Jan 31 01:00:00 EST 2023 Completed TST-PPD intradermal MonJan 22 01:00:00 EST 2023 Completed TST-PPD intradermal Sun Jan 27 01:00:00 EST 2023 Completed TST-PPD intradermal Sun Jan 20 01:00:00 EST 2023 Completed TST-PPD intradermal MonFeb 08 01:00:00 EST 2024 Completed TST-PPD intradermal MonFeb 01 01:00:00 EST 2023 Completed TST-PPD intradermal MonFeb 06 01:00:00 EST 2024 Completed COVID-19, mRNA, LNP-S, PF, 50 mcg/0.5 mL MonJune 06 01:00:00 EDT 2024 Completed Medications Medication Directions Start Date End Date fluticasone propionate 50 mcg/actuation nasal spray,suspension 1 spray SPRAY, SUSPENSION Intranasal - Both Nostrils 1 Time Daily Indication: allergic rhinitis MonJune 27 17:00:00 EDT 2024 pantoprazole 40 mg tablet,delayed release 1 tablet TABLET, DELAYED RELEASE (ENTERIC COATED) Oral 2 Times Daily Indication: GERD- Please give at 6am and 4pm on an empty stomach. MonJune 27 17:00:00 EDT 2024 potassium chloride ER 20 mEq tablet,extended release(part/cryst) 2 TABLET, EXT RELEASE, PARTICLES/CRYSTALS Oral 2 Times Daily for 3 Days Indication: Hypokalemia MonJune 26 05:00:00 EDT 2024June 29 04:59:00 EDT 2024 potassium chloride ER 20 mEq tablet,extended release(part/cryst) 1 TABLET, EXT RELEASE, PARTICLES/CRYSTALS Oral 1 Time Daily Indication: Hypokalemia MonJune 29 05:00:00 EDT 2024 fluticasone propionate 50 mcg/actuation nasal spray,suspension 1 spray SPRAY, SUSPENSION Intranasal - Both Nostrils 1 Time Daily Indication: allergic rhinitis MonJune 25 01:00:00 EDT 2024June 27 15:11:00 EDT 2024 acetaminophen 500 mg tablet 2 Tablets TABLET Oral 1 Time Daily Indication: PainDO NOT EXCEED 3 GRAMS OF TYLENOL IN 24 HOURS MonJune 25 01:00:00 ED2024 atorvastatin 20 mg tablet 1 tablet TABLE T Oral 1 Time Daily Indication: HLD MonJune 25 01:00:00 ED2024 clopidogreL 75 mg tablet 1 tab TABLET Or al 1 Time Daily Indication: cad MonJune 25 01:00:00 ED2024 Eliquis 2.5 mg tablet 1 tab TABLET Oral 2 Times Daily Indication: CAD MonJune 25 01:00:00 EDT 2024 ergocalciferol (vitamin D2) 1,250 mcg (50,000 unit) capsule 1 capsule CAPSULE Oral 1 Time Weekly Indication: Vitamin deficiency MonJune 25 01:00:00 EDT 2024 folic acid 1 mg tablet 1 tablet TABLET O ral 1 Time Daily Indication: Supplement MonJune 25 01:00:00 EDT 2024 furosemide 20 mg tablet 1 tablet TABLET Oral 1 Time Daily Indication: Edema MonJune 25 01:00:00 EDT 2024 latanoprost 0.005 % eye drops 1 drop DROPS Left Eye 1 Time Daily Indication: Glaucoma MonJune 25 01:00:00 EDT 2024 metoprolol succinate ER 25 mg tablet,extended release 24 hr 12.5 mg TABLET, EXTENDED RELEASE 24 HR Oral 1 Time Daily BP and/or Pulse Hold: Systolic Blood Pressure < 100 Hold;Vitals (Diastolic Blood Pressure) < 50 Hold;Vital Signs (Pulse) < 60 Hold;. Indication: HTN MonJune 25 01:00:00 EDT 2024 pantoprazole 40 mg tablet,delayed release 1 tablet TABLET, DELAYED RELEASE (ENTERIC COATED) Oral 2 Times Daily Indication: GERD MonJune 25 01:00:00 EDT 2024June 27 15:15:00 EDT 2024 polyethylene glycoL 3350 17 gram/dose oral powder 17 gram POWDER (GRAM) Oral 1 Time Daily Indication: Constipation MonJune 25 01:00:00 EDT 2024 Entresto 24 mg-26 mg tablet 1/2 tablet TABLET Oral 2 Times Daily BP and/or Pulse Hold: Systolic Blood Pressure < 100 Hold;Vitals (Diastolic Blood Pressure) < 50 Hold;Vital Signs (Pulse) < 60 Hold;. Indication: Heart Failure MonJune 25 01:00:00 EDT 2024 spironolactone 25 mg tablet 12.5mg TABLET Oral 1 Time Daily Indication: CHF MonJune 25 01:00:00 EDT 2024 ondansetron 4 mg disintegrating tablet 1 TABLET,DISINTEGRATING Oral PRN Every 6 Hours Indication: Nausea/vomiting MonJune 22 06:00:00 EDT 2024 Spikevax [id number](12y up)(PF) 50 mcg/0.5 mL intramuscular syringe 0.5 mL SYRINGE (ML) Intramuscular 1 Time Daily for 1 Day Indication: COVID vaccination MonJune 06 05:00:00 EDT 2024June 07 04:59:00 EDT 2024 triamcinolone acetonide 0.1 % topical cream 1 application CREAM (GRAM) Topical PRN 2 Times Daily Indication: Apply 1 application to rash on face and neck BID PRN MonMay 28 06:00:00 ED2024 acetaminophen PM 25 mg-500 mg tablet 2 Tablets TABLET Oral 1 Time Daily Indication: Take 2 tabs Q HS for pain/insomniaDO NOT EXCEED MORE THAN 3GM IN 24 HR BY ALL SOURCES MonMay 26 23:33:00 ED2024 acetaminophen 500 mg tablet 2 Tablets TABLET Oral 1 Time Daily Indication: PainDO NOT EXCEED 3 GRAMS OF TYLENOL IN 24 HOURS MonMay 26 23:34:00 ED2024June 25 00:04:00 ED2024 acetaminophen 325 mg tablet 1-2 tabs TABLET Oral PRN 2 Times Daily Indication: May take 1 to 2 tablets PO BID PRN. PT is not to exceed > 3grams of Tylenol in 24 hours MonMay 26 23:36:00 ED2024 pantoprazole 40 mg tablet,delayed release 1 tablet TABLET, DELAYED RELEASE (ENTERIC COATED) Oral 1 Time Daily Indication: GERD MonMay 22 06:00:00 EDT 2024June 25 00:19:00 EDT 2024 Santyl Collagenase Ointment 30 GM 1 application Topical 1 Time Daily Indication: Wound Cleanse left heel with NS, apply nickel think amount of santyl & aquacel AG, cover with ABD pad, & wrap with kerlix daily & PRN MonMay 21 14:00:00 EDT 2024May 29 14:24:00 EDT 2024 guaiFENesin 100 mg/5 mL oral liquid 10 MLS LIQUID (ML) Oral PRN Every 4 Hours Indication: Cough MonApr 23 17:00:00 EDT 2024 Saline NasaL 0.65 % spray aerosol 1 spray AEROSOL, SPRAY (ML) Intranasal - Both Nostrils PRN Every 4 Hours Indication: allergies MonMar 24 06:00:00 EST 2024 mirtazapine 15 mg tablet 1 tab TABLET Or al 1 Time Daily Indication: . depression, appetite stimulant Sat Mar 09 13:10:00 EST 2024 traMADoL 50 mg tablet 1 tab TABLET Oral PRN Every 6 Hours Indication: pain MonMar 09 13:11:00 EST 2024 acetaminophen PM 25 mg-500 mg tablet 2 Tablets TABLET Oral 1 Time Daily Indication: Take 2 tabs Q HS for pain/insomniaDO NOT EXCEED MORE THAN 3GM IN 24 HR BY ALL SOURCES MonMar 09 13:12:00 EST 2024May 26 23:34:00 EDT 2024 Child Pratik Guevara-Sym Cold-Flu 4 mg-10 mg-13 mg-650 mg/10 mL oral liq 10 MLS LIQUID (ML) Oral 1 Time Daily Indication: Give 10mls Q HS for cough MonMar 04 06:00:00 EST 2024Apr 23 16:40:00 EDT 2024 acetaminophen 500 mg tablet 2 Tablets TABLET Oral 1 Time Daily Indication: PainDO NOT EXCEED 3 GRAMS OF TYLENOL IN 24 HOURS MonMar 04 06:00:00 EST 2024May 26 23:35:00 EDT 2024 acetaminophen 325 mg tablet 1 TABLET Oral PRN 2 Times Daily Indication: May take 1 to 2 tablets PO BID PRN. PT is not to exceed > 3grams of Tylenol in 24 hours MonMar 03 01:00:00 2024May 26 23:38:00 EDT 2024 acetaminophen PM 25 mg-500 mg tablet 2 Tablets TABLET Oral 1 Time Daily Indication: Take 2 tabs Q HS for pain/insomnia MonMar 04 21:00:00 EST 2024Mar 09 13:13:00 EST 2024 Children's Mucinex Multi-Symptom 2.5 mg-5 mg-100 mg/5 mL oral liquid 10 ml LIQUID (ML) Oral PRN Every 12 Hours Indication: Cough, congestion MonMar 02 11:58:00 EST 2024Mar 04 10:30:00 EST 2024 Eliquis 2.5 mg tablet 1 tab TABLET Oral 2 Times Daily Indication: CAD MonMar 01 09:00:00 EST 2024June 25 00:10:00 EDT 2024 clopidogreL 75 mg tablet 1 tab TABLET Or al 1 Time Daily Indication: cad MonMar 01 09:00:00 EST 2024June 25 00:07:00 EDT 2024 Eliquis 2.5 mg tablet 1 tablet TABLET Or al 2 Times Daily for 3 Days Indication: A-Fib MonFeb 21 21:00:00 EST 2024Feb 24 20:59:00 EST 2024 spironolactone 25 mg tablet 12.5mg TABLET Oral 1 Time Daily Indication: CHF MonFeb 18 14:00:00 EST 2024June 25 00:22:00 EDT 2024 Entresto 24 mg-26 mg tablet 1/2 tablet TABLET Oral 2 Times Daily BP and/or Pulse Hold: Systolic Blood Pressure < 100 Hold;Vitals (Diastolic Blood Pressure) < 50 Hold;Vital Signs (Pulse) < 60 Hold;. Indication: Heart Failure MonFeb 16 09:00:00 EST 2024June 25 00:21:00 EDT 2024 traMADoL 50 mg tablet 1 tab TABLET Oral PRN Every 6 Hours Indication: pain MonFeb 15 13:00:00 EST 2024Mar 09 13:12:00 EST 2024 Santyl Collagenase Ointment 30 GM 1 Topical Every 1 Day Indication: wound care Left heel: cleanse with NS or WC, apply Santyl, calcium alginate, cover with ABD and secure with gauze roll MonFeb 13 14:00:00 EST 2024Apr 10 23:52:00 EST 2024 ergocalciferol (vitamin D2) 1,250 mcg (50,000 unit) capsule 1 capsule CAPSULE Oral 1 Time Weekly Indication: Vitamin deficiency MonFeb 04 18:33:00 2023June 25 00:12:00 EDT 2024 TubersoL 5 tub. unit/0.1 mL intradermal injection solution 0.1 ml VIAL (ML) Intradermal 1 Time Weekly for 2 Weeks Indication: .. 1st injection on admission, then one week after. Read between 48 and 72 hours MonJan 29 07:00:00 2023Feb 12 06:59:00 EST 2024 TubersoL 5 tub. unit/0.1 mL intradermal injection solution Read Results VIAL (ML) Other 1 Time Weekly for 2 Weeks Indication: .. Read results between 48-72 hours after 1st and 2nd (1 week apart). If positive do chest x-ray. MonJan 29 07:00:00 EST 2023Feb 12 06:59:00 EST 2024 mirtazapine 7.5 mg tablet 7.5 mg TABLET Oral 1 Time Daily for 7 Days Indication: depression, appetite stimulant MonJan 28 21:00:00 2023Feb 04 20:59:00 EST 2023 mirtazapine 15 mg tablet 1 tab TABLET Or al 1 Time Daily Indication: . depression, appetite stimulant MonFeb 04 21:00:00 2023Mar 09 13:11:00 EST 2024 acetaminophen 325 mg tablet 2 tablets TABLET Oral PRN Every 4 Hours Indication: Pain *Do not exceed 3gm/day total apap from all sources* MonJan 22 02:53:00 2023Mar 03 17:20:00 2024 ALPRAZolam 0.25 mg tablet 1 tablet TABLE T Oral PRN Hour Of Sleep for 30 Days Indication: Anxiety MonJan 22 02:54:00 2023u Feb 21 02:53:00 EST 2024 Entresto 24 mg-26 mg tablet 1 tablet TABLET Oral 2 Times Daily BP and/or Pulse Hold: Systolic Blood Pressure < 100 Hold;Vitals (Diastolic Blood Pressure) < 50 Hold;Vital Signs (Pulse) < 60 Hold;. Indication: Heart Failure MonJan 20 12:18:00 2023Feb 15 12:12:00 EST 2024 metoprolol succinate ER 25 mg tablet,extended release 24 hr 12.5 mg TABLET, EXTENDED RELEASE 24 HR Oral 1 Time Daily BP and/or Pulse Hold: Systolic Blood Pressure < 100 Hold;Vitals (Diastolic Blood Pressure) < 50 Hold;Vital Signs (Pulse) < 60 Hold;. Indication: HTN MonJan 20 12:19:00 2023June 25 00:18:00 EDT 2024 TubersoL 5 tub. unit/0.1 mL intradermal injection solution 0.1 ml VIAL (ML) Intradermal 1 Time Weekly for 2 Weeks Indication: . 1st injection on admission, then one week after. Read between 48 and 72 hours MonJan 19 16:00:00 2023Jan 29 14:32:00 2023 TubersoL 5 tub. unit/0.1 mL intradermal injection solution Read Results VIAL (ML) Other 1 Time Weekly for 2 Weeks Indication: . Read results between 48-72 hours after 1st and 2nd (1 week apart). If positive do chest x-ray. MonJan 19 16:00:00 2023Jan 29 14:33:00 2023 acetaminophen 325 mg tablet 2 tablets TABLET Oral PRN Every 4 Hours Indication: Pain MonJan 19 16:20:00 2023Jan 22 02:54:00 EST 2023 ALPRAZolam 0.25 mg tablet 1 tablet TABLE T Oral PRN Hour Of Sleep Indication: Anxiety MonJan 19 16:20:00 2023Jan 22 02:55:00 EST 2023 atorvastatin 20 mg tablet 1 tablet TABLE T Oral 1 Time Daily Indication: HLD MonJan 19 16:22:00 EST 2023June 25 00:06:00 EDT 2024 Eliquis 2.5 mg tablet 1 tablet TABLET Or al 2 Times Daily Indication: A-Fib Sat Jan 19 16:20:00 EST 2023Feb 21 21:05:00 EST 2024 Entresto 24 mg-26 mg tablet 1 tablet TABLET Oral 2 Times Daily Indication: Heart Failure MonJan 19 16:20:00 EST 2023Jan 20 12:21:00 EST 2023 fluticasone propionate 50 mcg/actuation nasal spray,suspension 1 spray SPRAY, SUSPENSION Intranasal - Both Nostrils 1 Time Daily Indication: Allergies MonJan 19 16:20:00 EST 2023Mar 24 15:02:00 EST 2024 folic acid 1 mg tablet 1 tablet TABLET O ral 1 Time Daily Indication: Supplement MonJan 19 16:30:00 2023June 25 00:14:00 EDT 2024 furosemide 20 mg tablet 1 tablet TABLET Oral 1 Time Daily Indication: Edema MonJan 19 16:30:00 2023June 25 00:15:00 EDT 2024 isosorbide mononitrate ER 30 mg tablet,extended release 24 hr 1 tablet TABLET, EXTENDED RELEASE 24 HR Oral 1 Time Daily Indication: Angina MonJan 19 16:30:00 2023Jan 20 12:21:00 EST 2023 latanoprost 0.005 % eye drops 1 drop DROPS Left Eye 1 Time Daily Indication: Glaucoma MonJan 19 16:30:00 2023June 25 00:16:00 EDT 2024 levothyroxine 25 mcg tablet 1 tablet TABLET Oral 1 Time Daily Indication: Hypothyroidism MonJan 19 16:30:00 EST 2023 Toprol XL 25 mg tablet,extended release 12.5 mg TABLET, EXTENDED RELEASE 24 HR Oral 1 Time Daily Indication: HTN MonJan 19 16:30:00 EST 2023Jan 20 12:21:00 EST 2023 pantoprazole 40 mg tablet,delayed release 1 tablet TABLET, DELAYED RELEASE (ENTERIC COATED) Oral 2 Times Daily Indication: GERD Sat Jan 19 16:30:00 EST 2023May 21 15:13:00 EDT 2024 polyethylene glycoL 3350 17 gram/dose oral powder 17 gram POWDER (GRAM) Oral 1 Time Daily Indication: Constipation MonJan 19 16:30:00 EST 2023June 25 00:20:00 EDT 2024 sertraline 50 mg tablet 1 tablet TABLET Oral 1 Time Daily Indication: Depression MonJan 19 16:30:00 EST 2023Jan 28 13:49:00 EST 2023 spironolactone 25 mg tablet 1 tablet TABLET Oral 1 Time Daily Indication: Edema MonJan 19 16:30:00 EST 2023Feb 18 14:38:00 EST 2024 Problems Active Concerns * Hypothyroidism, unspecified* Code: * Start Date: MonJan 19 00:00:00 EST 2023 * End Date: * Text: * Hypo-osmolality and hyponatremia* Code: * Start Date: MonJan 19 00:00:00 EST 2023 * End Date: * Text: * Major depressive disorder, single episode, unspecified* Code: * Start Date: MonJan 19 00:00:00 2023 * End Date: * Text: * Constipation, unspecified* Code: * Start Date: MonJan 19 00:00:00 EST 2023 * End Date: * Text: * Allergic rhinitis, unspecified* Code: * Start Date: MonJan 19 00:00:00 EST 2023 * End Date: * Text: * Hyperlipidemia, unspecified* Code: * Start Date: MonJan 19 00:00:00 2023 * End Date: * Text: * Generalized anxiety disorder* Code: * Start Date: MonJan 19 00:00:00 2023 * End Date: * Text: * Unspecified glaucoma* Code: * Start Date: MonJan 19 00:00:00 2023 * End Date: * Text: * Syndrome of inappropriate secretion of antidiuretic hormone* Code: * Start Date: MonJan 19 00:00:00 2023 * End Date: * Text: * Chronic diastolic (congestive) heart failure* Code: * Start Date: MonJan 19 00:00:00 EST 2023 * End Date: * Text: * Aneurysm of the ascending aorta, without rupture* Code: * Start Date: MonJan 19 00:00:00 2023 * End Date: * Text: * Thrombocytopenia, unspecified* Code: * Start Date: MonJan 19 00:00:00 EST 2023 * End Date: * Text: * Peripheral vascular disease, unspecified* Code: * Start Date: MonJan 19 00:00:00 EST 2023 * End Date: * Text: * Gastritis, unspecified, without bleeding* Code: * Start Date: MonJan 19 00:00:00 EST 2023 * End Date: * Text: * Chronic atrial fibrillation, unspecified* Code: * Start Date: MonJan 19 00:00:00 EST 2023 * End Date: * Text: * Repeated falls* Code: * Start Date: MonJan 19 00:00:00 EST 2023 * End Date: * Text: * [facility]CI (current) use of anticoagulants* Code: * Start Date: MonJan 19 00:00:00 EST 2023 * End Date: * Text: * Hypertensive heart and chronic kidney disease with heart failure and stage 1 through stage 4 chronic kidney disease, or unspecified chronic kidney disease * Code: * Start Date: MonJan 19 00:00:00 EST 2023 * End Date: * Text: * Chronic kidney disease, stage 2 (mild)* Code: * Start Date: MonJan 19 00:00:00 EST 2023 * End Date: * Text: * Personal history of nicotine dependence* Code: * Start Date: MonJan 19 00:00:00 2023 * End Date: * Text: * Vitamin D deficiency, unspecified* Code: * Start Date: MonJan 19 00:00:00 EST 2023 * End Date: * Text: * Pressure ulcer of left heel, stage 3* Code: * Start Date: MonApr 24 00:00:00 EDT 2024 * End Date: * Text: * Personal history of other diseases of the digestive system* Code: * Start Date: MonJan 19 00:00:00 EST 2023 * End Date: * Text: * Polyosteoarthritis, unspecified* Code: * Start Date: MonMay 22 00:00:00 EDT 2024 * End Date: * Text: * Gastrointestinal hemorrhage, unspecified* Code: * Start Date: MonJune 24 00:00:00 EDT 2024 * End Date: * Text: * Atherosclerotic heart disease of jamul coronary artery without angina pectoris* Code: * Start Date: MonJune 24 00:00:00 EDT 2024 * End Date: * Text: * 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* Code: * Start Date: MonJune 24 00:00:00 EDT 2024 * End Date: * Text: * Gastro-esophageal reflux disease with esophagitis, with bleeding* Code: * Start Date: MonJune 24 00:00:00 EDT 2024 * End Date: * Text: * 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* Code: * Start Date: MonJune 24 00:00:00 EDT 2024 * End Date: * Text: * 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 * Dulce Aviles will be involved in goal development to the best of his ability.* Code: * Start Date: MonJan 29 00:00:00 EST 2023 * End Date: * Text: Dulce Aviles will be involved in goal development to the best of his ability. * Dulce Aviles has family/friends who are supportive.* Code: * Start Date: MonJan 29 00:00:00 EST 2023 * End Date: * Text: Dulce Aviles has family/friends who are supportive. * Dulce Schultzs mobility level is different than prior level due to current medical condition.* Code: * Start Date: MonJan 29 00:00:00 EST 2023 * End Date: * Text: Dulce Schultzs mobility level is different than prior level due to current medical condition. * Dulce Aviles will be involved in discharge planning.* Code: * Start Date: MonJan 29 00:00:00 EST 2023 * End Date: MonApr 16 00:00:00 EDT 2024 * Text: LSS_Social Services- Stefan will be involved in discharge planning. * LSS_Anticoagulant - Stefan is at risk for bleeding due to use of Eliquis* Code: * Start Date: MonJan 31 00:00:00 EST 2023 * End Date: * Text: LSS_Anticoagulant - Stefan is at risk for bleeding due to use of Eliquis * LSS_Psychotropic Drug Use - Use of psychotropic drug use places Vincent at risk for drug-related side effects.* Code: * Start Date: MonJan 31 00:00:00 EST 2023 * End Date: * Text: LSS_Psychotropic Drug Use - Use of psychotropic drug use places Vincent at risk for drug-related side effects. * LSS_Falls - Andresent is at risk for falls/injury as evidenced by: history of falls, cognitive status/behavior, vision status, continence, mobility, balance.* Code: * Start Date: MonJan 31 00:00:00 EST 2023 * End Date: * Text: LSS_Falls - Stefan is at risk for falls/injury as evidenced by: history of falls, cognitive status/behavior, vision status, continence, mobility, balance. * LSS_Pain - Stefan is experiencing pain or is at high risk for pain.* Code: * Start Date: MonJan 31 00:00:00 EST 2023 * End Date: * Text: LSS_Pain - Stefan is experiencing pain or is at high risk for pain. * LSS_Skin Integrity - Stefan has alteration in skin integrity. Wound type: left heel pressure injury.* Code: * Start Date: MonJan 31 00:00:00 EST 2023 * End Date: * Text: LSS_Skin Integrity - Stefan has alteration in skin integrity. Wound type: left heel pressureinjury. * LSS_ADLs - Stefan has ADL selfcare deficit related to decreased mobility and muscle weakness* Code: * Start Date: MonJan 31 00:00:00 EST 2023 * End Date: * Text: LSS_ADLs - Stefan has ADL selfcare deficit related to decreased mobility and muscle weakness * LSS_Vascular Wound - Stefan has a vascular wounds. Stent placed related to BLE vascular issues.* Code: * Start Date: MonJan 31 00:00:00 EST 2023 * End Date: MonMay 06 00:00:00 EDT 2024 * Text: LSS_Vascular Wound - Stefan has a vascular wounds. Stent placed related to BLE vascular issues. * LSS_Urinary Incontinence1 - Stefan is frequently incontinent.* Code: * Start Date: MonJan 31 00:00:00 EST 2023 * End Date: * Text: LSS_Urinary Incontinence1 - Stefan is frequently incontinent. * Alteration in nutrition/hydration R/T wounds and recent weight loss* Code: * Start Date: MonMar 08 00:00:00 EST 2024 * End Date: * Text: Alteration in nutrition/hydration R/T wounds and recent weight loss * LSS_Activities - Delmar's quality of life is better when he is able to do things that are most important to him. Demlar is [employer]. Delmar spends most of his leisure time in his room watching television.* Code: * Start Date: MonMar 18 00:00:00 EST 2024 * End Date: * Text: LSS_Activities - Delmar's quality of life is better when he is able to do things that are mostimportant to him. Delmar is Lutheran. Delmar spends most of his leisure time in his room watching television. * LSS_Social Services- Delmar will be involved in discharge planning.* Code: * Start Date: MonApr 16 00:00:00 EDT 2024 * End Date: * Text: LSS_Social Services- Delmar will be involved in discharge planning. * LSS_Cardiovascular - Delmar has potential forcomplications related to diagnosis or history ofcardiacdysfunction as evidenced by: hypertension (), hypotension ( ), CVA/TIA ( ), edema ( ), atrialfibrillation ( ), other dysrhythmia: ( ), fluidvolume deficit ( ), fluid volume overload ( ), CHF( x),hypercholesteremia ( ), diuretic use ( x), anemia ( x),other: ( ).* Code: * Start Date: MonMay 06 00:00:00 EDT 2024 * End Date: * Text: LSS_Cardiovascular - Delmar has potential forcomplications related to diagnosis or history ofcardiac dysfunction as evidenced by: hypertension (), hypotension ( ), CVA/TIA ( ), edema ( ), atrialfibrillation ( ), other dysrhythmia: ( ), fluidvolume deficit ( ), fluid volume overload ( ), CHF ( x),hypercholesteremia ( ), diuretic use ( x), anemia ( x),other: ( ). * Constipation* Code: * Start Date: MonMay 06 00:00:00 EDT 2024 * End Date: * Text: Constipation * LSS_Skin Integrity - (Potential Alteration of)- Vinceis at risk for developing impaired skin integrity.* Code: * Start Date: MonMay 16 00:00:00 EDT 2024 * End Date: * Text: LSS_Skin Integrity - (Potential Alteration of)- Vinceis at risk for developing impaired skin integrity. * H0400.1 Bowel Continence: Delmar has occasionally incontinent (16)* Code: * Start Date: MonJun 04 00:00:00 EDT 2024 * End Date: * Text: H0400.1 Bowel Continence: Delmar has occasionally incontinent (16) * B1000.1 Vision: Delmar ability to see in adequate light is Impaired (3)* Code: * Start Date: MonJun 04 00:00:00 EDT 2024 * End Date: * Text: B1000.1 Vision: Delmar ability to see in adequate light is Impaired (3) * B0700.1 Communication: Delmar is usually understood in ability to express ideas and wants. (4)* Code: * Start Date: MonJun 04 00:00:00 EDT 2024 * End Date: * Text: B0700.1 Communication: Delmar is usually understood in ability to express ideas and wants. (4) Resolved Concerns * Problem Muscle weakness (generalized)* Code: * Start Date: MonSep 30 00:00:00 EDT 2021 * End Date: MonJune 26 00:00:00 EDT 2024 * Problem Stiffness of unspecified shoulder, not elsewhere classified* Code: * Start Date: MonSep 06 00:00:00 EDT 2023 * End Date: MonJan 23 00:00:00 EST 2023 * Problem Weakness* Code: * Start Date: MonSep 06 00:00:00 EDT 2023 * End Date: MonJan 23 00:00:00 EST 2023 * Problem Other fatigue* Code: * Start Date: MonSep 06 00:00:00 EDT 2023 * End Date: MonJune 26 00:00:00 EDT 2024 * Problem Unsteadiness on feet* Code: * Start Date: MonSep 06 00:00:00 EDT 2023 * End Date: MonJune 26 00:00:00 EDT 2024 * Problem Need for assistance with personal care* Code: * Start Date: MonSep 06 00:00:00 EDT 2023 * End Date: MonJune 26 00:00:00 EDT 2024 * Problem Anxiety disorder, unspecified* Code: * Start Date: MonJan 19 00:00:00 EST 2023 * End Date: MonJan 23 00:00:00 EST 2023 * Problem Depression, unspecified* Code: * Start Date: MonJan 19 00:00:00 EST 2023 * End Date: MonJan 23 00:00:00 EST 2023 * Problem Unspecified atrial fibrillation* Code: * Start Date: MonJan 19 00:00:00 EST 2023 * End Date: MonJan 23 00:00:00 EST 2023 * Problem Heart failure, unspecified* Code: * Start Date: MonJan 19 00:00:00 EST 2023 * End Date: MonJan 23 00:00:00 EST 2023 * Problem Laceration without foreign body of left forearm, subsequent encounter * Code: * Start Date: MonJan 19 00:00:00 EST 2023 * End Date: MonJune 26 00:00:00 EDT 2024 * Problem Hypertensive heart disease with heart failure* Code: * Start Date: MonJan 19 00:00:00 EST 2023 * End Date: MonJan 23 00:00:00 EST 2023 * Problem Non-pressure chronic ulcer of other part of left foot with necrosis of muscle* Code: * Start Date: MonJan 19 00:00:00 EST 2023 * End Date: MonFeb 22 00:00:00 EST 2024 * Problem Iron deficiency anemia, unspecified* Code: * Start Date: MonJan 19 00:00:00 EST 2023 * End Date: MonJune 26 00:00:00 EDT 2024 * Problem 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* Code: * Start Date: MonJan 19 00:00:00 EST 2023 * End Date: MonJune 26 00:00:00 EDT 2024 * Problem Urinary tract infection, site not specified* Code: * Start Date: MonJan 19 00:00:00 EST 2023 * End Date: MonJune 26 00:00:00 EDT 2024 * Problem Pressure ulcer of left heel, unstageable* Code: * Start Date: MonJan 19 00:00:00 EST 2023 * End Date: MonApr 26 00:00:00 EDT 2024 * Problem Laceration without foreign body of right upper arm, subsequent encounter* Code: * Start Date: MonFeb 20 00:00:00 EST 2024 * End Date: MonApr 26 00:00:00 EDT 2024 * Problem Insomnia, unspecified* Code: * Start Date: MonJan 19 00:00:00 EST 2023 * End Date: MonJune 26 00:00:00 EDT 2024 * Problem Other abnormalities of gait and mobility* Code: * Start Date: MonJan 19 00:00:00 EST 2023 * End Date: MonJune 26 00:00:00 EDT 2024 Vital Signs Vital Sign Measurement Date Systolic Blood Pressure 133.00 mm[Hg] MonJune 30 10:01:57 EDT 2024 Diastolic Blood Pressure 80.00 mm[Hg] MonJune 30 10:01:57 EDT 2024 Systolic Blood Pressure 133.00 mm[Hg] MonJune 30 10:01:57 EDT 2024 Diastolic Blood Pressure 80.00 mm[Hg] MonJune 30 10:01:57 EDT 2024 Heart Rate 92.00 /min MonJune 30 10:01 :57 EDT 2024 Heart Rate 92.00 /min MonJune 30 10:01 :57 EDT 2024 Systolic Blood Pressure 134.00 mm[Hg] MonJune 29 20:39:03 EDT 2024 Diastolic Blood Pressure 82.00 mm[Hg] MonJune 29 20:39:03 EDT 2024 Heart Rate 78.00 /min MonJune 29 20:39 :03 EDT 2024 Systolic Blood Pressure 108.00 mm[Hg] MonJune 29 09:36:15 EDT 2024 Diastolic Blood Pressure 64.00 mm[Hg] MonJune 29:36:15 EDT 2024 Systolic Blood Pressure 108.00 mm[Hg] MonJune 29:36:15 EDT 2024 Diastolic Blood Pressure 64.00 mm[Hg] MonJune 29:36:15 EDT 2024 Heart Rate 72.00 /min MonJune 29:36 :15 EDT 2024 Heart Rate 72.00 /min MonJune 29:36 :15 EDT 2024 Systolic Blood Pressure 142.00 mm[Hg] MonJune 28 21:25:24 EDT 2024 Diastolic Blood Pressure 78.00 mm[Hg] MonJune 28:25:24 EDT 2024 Heart Rate 80.00 /min MonJune 28:25 :24 EDT 2024 Systolic Blood Pressure 128.00 mm[Hg] MonJune 28 10:31:26 EDT 2024 Diastolic Blood Pressure 60.00 mm[Hg] MonJune 28 10:31:26 EDT 2024 Systolic Blood Pressure 128.00 mm[Hg] MonJune 28 10:31:26 EDT 2024 Diastolic Blood Pressure 60.00 mm[Hg] MonJune 28 10:31:26 EDT 2024 Heart Rate 92.00 /min MonJune 28 10:31 :26 EDT 2024 Heart Rate 92.00 /min MonJune 28 10:31 :26 EDT 2024 Systolic Blood Pressure 127.00 mm[Hg] MonJune 27 20:07:27 EDT 2024 Diastolic Blood Pressure 75.00 mm[Hg] MonJune 27 20:07:27 EDT 2024 Heart Rate 80.00 /min MonJune 27:07 :27 EDT 2024 Systolic Blood Pressure 130.00 mm[Hg] MonJune 27 08:31:03 EDT 2024 Diastolic Blood Pressure 80.00 mm[Hg] MonJune 27 08:31:03 EDT 2024 Heart Rate 96.00 /min MonJune 27 08:31 :03 EDT 2024 Systolic Blood Pressure 102.00 mm[Hg] MonJune 27 02:40:58 EDT 2024 Diastolic Blood Pressure 58.00 mm[Hg] MonJune 27 02:40:58 EDT 2024 Pulse Oximetry 96.00 % MonJune 27 02:40 :58 EDT 2024 Heart Rate 70.00 /min MonJune 27 02:40 :58 EDT 2024 Respiratory rate 18.00 /min MonJune 27 02:4 0:58 EDT 2024 Body temperature 97.70 [degF] MonJune 27 02:4 0:58 EDT 2024 Systolic Blood Pressure 102.00 mm[Hg] MonJune 26 20:13:28 EDT 2024 Diastolic Blood Pressure 58.00 mm[Hg] MonJune 26 20:13:28 EDT 2024 Heart Rate 70.00 /min MonJune 26 20:13 :28 EDT 2024 Systolic Blood Pressure 99.00 mm[Hg] MonJune 26 08:48:48 EDT 2024 Diastolic Blood Pressure 56.00 mm[Hg] MonJune 26 08:48:48 EDT 2024 Systolic Blood Pressure 99.00 mm[Hg] MonJune 26 08:48:48 EDT 2024 Diastolic Blood Pressure 56.00 mm[Hg] MonJune 26 08:48:48 EDT 2024 Heart Rate 64.00 /min MonJune 26 08:48 :48 EDT 2024 Heart Rate 64.00 /min MonJune 26 08:48 :48 EDT 2024 Systolic Blood Pressure 124.00 mm[Hg] MonJune 25 20:05:00 EDT 2024 Diastolic Blood Pressure 73.00 mm[Hg] MonJune 25 20:05:00 EDT 2024 Heart Rate 75.00 /min MonJune 25 20:05 :00 EDT 2024 Systolic Blood Pressure 118.00 mm[Hg] MonJune 25 09:14:38 EDT 2024 Diastolic Blood Pressure 65.00 mm[Hg] MonJune 25 09:14:38 EDT 2024 Systolic Blood Pressure 118.00 mm[Hg] MonJune 25:14:38 EDT 2024 Diastolic Blood Pressure 65.00 mm[Hg] MonJune 25:14:38 EDT 2024 Heart Rate 95.00 /min MonJune 25:14 :38 EDT 2024 Heart Rate 95.00 /min MonJune 25:14 :38 EDT 2024 Body weight 225.00 [lb_av] MonJune 25 04:55 :00 EDT 2024 Systolic Blood Pressure 118.00 mm[Hg] MonJune 25 02:06:00 EDT 2024 Diastolic Blood Pressure 65.00 mm[Hg] MonJune 25 02:06:00 EDT 2024 Heart Rate 95.00 /min MonJune 25 02:06 :00 EDT 2024 Respiratory rate 20.00 /min MonJune 25 02:0 6:00 EDT 2024 Pulse Oximetry 97.00 % MonJune 25 02:06 :00 EDT 2024 Body temperature 98.20 [degF] MonJune 25 02:0 6:00 EDT 2024 Body Height 71.00 [in_i] MonJune 25 02:06 :00 EDT 2024 Systolic Blood Pressure 108.00 mm[Hg] MonJune 23 00:06:19 EDT 2024 Diastolic Blood Pressure 74.00 mm[Hg] MonJune 23 00:06:19 EDT 2024 Pulse Oximetry 95.00 % MonJune 23:06 :19 EDT 2024 Heart Rate 93.00 /min MonJune 23 00:06 :19 EDT 2024 Respiratory rate 18.00 /min MonJune 23 00:0 6:19 EDT 2024 Body temperature 98.30 [degF] MonJune 23 00:0 6:19 EDT 2024 Systolic Blood Pressure 108.00 mm[Hg] MonJune 22 22:45:50 EDT 2024 Diastolic Blood Pressure 74.00 mm[Hg] MonJune 22 22:45:50 EDT 2024 Heart Rate 113.00 /min MonJune 22 22:45 :50 EDT 2024 Systolic Blood Pressure 123.00 mm[Hg] MonJune 22 18:53:34 EDT 2024 Diastolic Blood Pressure 72.00 mm[Hg] MonJune 22 18:53:34 EDT 2024 Pulse Oximetry 94.00 % MonJune 22 18:53 :34 EDT 2024 Heart Rate 99.00 /min MonJune 22 18:53 :34 EDT 2024 Respiratory rate 20.00 /min MonJune 22 18:5 3:34 EDT 2024 Body temperature 97.20 [degF] MonJune 22 18:5 3:34 EDT 2024 Systolic Blood Pressure 157.00 mm[Hg] MonJune 22 09:22:03 EDT 2024 Diastolic Blood Pressure 97.00 mm[Hg] MonJune 22 09:22:03 EDT 2024 Systolic Blood Pressure 157.00 mm[Hg] MonJune 22 09:22:03 EDT 2024 Diastolic Blood Pressure 97.00 mm[Hg] MonJune 22 09:22:03 EDT 2024 Heart Rate 84.00 /min MonJune 22 09:22 :03 EDT 2024 Heart Rate 84.00 /min MonJune 22:22 :03 EDT 2024 Systolic Blood Pressure 157.00 mm[Hg] MonJune 22 07:57:28 EDT 2024 Diastolic Blood Pressure 97.00 mm[Hg] MonJune 22 07:57:28 EDT 2024 Pulse Oximetry 98.00 % MonJune 22 07:57 :28 EDT 2024 Heart Rate 108.00 /min MonJune 22 07:57 :28 EDT 2024 Systolic Blood Pressure 107.00 mm[Hg] MonJune 21 22:40:22 EDT 2024 Diastolic Blood Pressure 67.00 mm[Hg] MonJune 21 22:40:22 EDT 2024 Heart Rate 78.00 /min MonJune 21 22:40 :22 EDT 2024 Systolic Blood Pressure 130.00 mm[Hg] MonJune 21 08:44:01 EDT 2024 Diastolic Blood Pressure 80.00 mm[Hg] MonJune 21 08:44:01 EDT 2024 Systolic Blood Pressure 130.00 mm[Hg] MonJune 21 08:44:01 EDT 2024 Diastolic Blood Pressure 80.00 mm[Hg] MonJune 21 08:44:01 EDT 2024 Heart Rate 80.00 /min MonJune 21 08:44 :01 EDT 2024 Heart Rate 80.00 /min MonJune 21 08:44 :01 EDT 2024 Systolic Blood Pressure 132.00 mm[Hg] MonJune 20:22:23 EDT 2024 Diastolic Blood Pressure 82.00 mm[Hg] MonJune 20 20:22:23 EDT 2024 Heart Rate 85.00 /min MonJune 20:22 :23 EDT 2024 Systolic Blood Pressure 124.00 mm[Hg] MonJune 20 10:30:44 EDT 2024 Diastolic Blood Pressure 78.00 mm[Hg] MonJune 20 10:30:44 EDT 2024 Systolic Blood Pressure 124.00 mm[Hg] MonJune 20 10:30:44 EDT 2024 Diastolic Blood Pressure 78.00 mm[Hg] MonJune 20 10:30:44 EDT 2024 Heart Rate 72.00 /min MonJune 20 10:30 :44 EDT 2024 Heart Rate 72.00 /min MonJune 20 10:30 :44 EDT 2024 Systolic Blood Pressure 133.00 mm[Hg] MonJune 19 22:59:12 EDT 2024 Diastolic Blood Pressure 75.00 mm[Hg] MonJune 19 22:59:12 EDT 2024 Heart Rate 78.00 /min MonJune 19 22:59 :12 EDT 2024 Body temperature 97.70 [degF] MonJune 19 22:5 9:12 EDT 2024 Respiratory rate 20.00 /min MonJune 19 22:5 9:12 EDT 2024 Pulse Oximetry 97.00 % MonJune 19 22:59 :12 EDT 2024 Systolic Blood Pressure 133.00 mm[Hg] MonJune 19 20:19:19 EDT 2024 Diastolic Blood Pressure 75.00 mm[Hg] MonJune 19 20:19:19 EDT 2024 Heart Rate 78.00 /min MonJune 19 20:19 :19 EDT 2024 Systolic Blood Pressure 145.00 mm[Hg] MonJune 19 10:44:12 EDT 2024 Diastolic Blood Pressure 89.00 mm[Hg] MonJune 19 10:44:12 EDT 2024 Systolic Blood Pressure 145.00 mm[Hg] MonJune 19 10:44:12 EDT 2024 Diastolic Blood Pressure 89.00 mm[Hg] MonJune 19 10:44:12 EDT 2024 Heart Rate 86.00 /min MonJune 19 10:44 :12 EDT 2024 Heart Rate 86.00 /min MonJune 19 10:44 :12 EDT 2024 Systolic Blood Pressure 94.00 mm[Hg] MonJune 18 22:32:10 EDT 2024 Diastolic Blood Pressure 60.00 mm[Hg] MonJune 18 22:32:10 EDT 2024 Heart Rate 70.00 /min MonJune 18 22:32 :10 EDT 2024 Body weight 224.20 [lb_av] MonJune 18 18:58 :36 EDT 2024 Systolic Blood Pressure 129.00 mm[Hg] MonJune 18 09:31:40 EDT 2024 Diastolic Blood Pressure 69.00 mm[Hg] MonJune 18 09:31:40 EDT 2024 Systolic Blood Pressure 129.00 mm[Hg] MonJune 18 09:31:40 EDT 2025 Diastolic Blood Pressure 69.00 mm[Hg] MonJune 18 09:31:40 EDT 2024 Heart Rate 76.00 /min MonJune 18 09:31 :40 EDT 2024 Heart Rate 76.00 /min MonJune 18 09:31 :40 EDT 2024 Systolic Blood Pressure 139.00 mm[Hg] MonJune 17 20:13:36 EDT 2024 Diastolic Blood Pressure 72.00 mm[Hg] MonJune 17 20:13:36 EDT 2024 Heart Rate 75.00 /min MonJune 17 20:13 :36 EDT 5 Systolic Blood Pressure 136.00 mm[Hg] MonJune 17 09:54:13 EDT 2024 Diastolic Blood Pressure 84.00 mm[Hg] MonJune 17 09:54:13 EDT 2024 Systolic Blood Pressure 136.00 mm[Hg] MonJune 17 09:54:13 EDT 2024 Diastolic Blood Pressure 84.00 mm[Hg] MonJune 17 09:54:13 EDT 2024 Heart Rate 82.00 /min MonJune 17 09:54 :13 EDT 2024 Heart Rate 82.00 /min MonJune 17 09:54 :13 EDT 2024 Systolic Blood Pressure 122.00 mm[Hg] MonJune 16 20:46:36 EDT 2024 Diastolic Blood Pressure 68.00 mm[Hg] MonJune 16 20:46:36 EDT 2024 Heart Rate 74.00 /min MonJune 16 20:46 :36 EDT 2024 Systolic Blood Pressure 117.00 mm[Hg] MonJune 16:07:05 EDT 2024 Diastolic Blood Pressure 65.00 mm[Hg] MonJune 16:07:05 EDT 2024 Systolic Blood Pressure 117.00 mm[Hg] MonJune 16:07:05 EDT 2024 Diastolic Blood Pressure 65.00 mm[Hg] MonJune 16:07:05 EDT 2024 Heart Rate 70.00 /min MonJune 16:07 :05 EDT 2024 Heart Rate 70.00 /min MonJune 16:07 :05 EDT 2024 Systolic Blood Pressure 107.00 mm[Hg] MonJune 15 23:03:22 EDT 2024 Diastolic Blood Pressure 71.00 mm[Hg] MonJune 15 23:03:22 EDT 2024 Heart Rate 83.00 /min MonJune 15 23:03 :22 EDT 5 Systolic Blood Pressure 144.00 mm[Hg] MonJune 15 09:17:16 EDT 5 Diastolic Blood Pressure 81.00 mm[Hg] MonJune 15 09:17:16 EDT 2024 Systolic Blood Pressure 144.00 mm[Hg] MonJune 15 09:17:16 EDT 5 Diastolic Blood Pressure 81.00 mm[Hg] MonJune 15 09:17:16 EDT 5 Heart Rate 81.00 /min MonJune 15 09:17 :16 EDT 2024 Heart Rate 81.00 /min MonJune 15 09:17 :16 EDT 2025 Systolic Blood Pressure 105.00 mm[Hg] MonJune 14 21:21:21 EDT 2024 Diastolic Blood Pressure 64.00 mm[Hg] MonJune 14 21:21:21 EDT 2024 Heart Rate 76.00 /min MonJune 14 21:21 :21 EDT 2024 Systolic Blood Pressure 134.00 mm[Hg] MonJune 14 09:16:24 EDT 2024 Diastolic Blood Pressure 84.00 mm[Hg] MonJune 14 09:16:24 EDT 2024 Systolic Blood Pressure 134.00 mm[Hg] MonJune 14 09:16:24 EDT 2024 Diastolic Blood Pressure 84.00 mm[Hg] MonJune 14 09:16:24 EDT 5 Heart Rate 80.00 /min MonJune 14 09:16 :24 EDT 2024 Heart Rate 80.00 /min MonJune 14 09:16 :24 EDT 5 Systolic Blood Pressure 127.00 mm[Hg] MonJune 13 20:14:15 EDT 2024 Diastolic Blood Pressure 74.00 mm[Hg] MonJune 13 20:14:15 EDT 2024 Heart Rate 86.00 /min MonJune 13 20:14 :15 EDT 5 Body weight 204.00 [lb_av] MonJune 13 12:14 :27 EDT 5 Systolic Blood Pressure 135.00 mm[Hg] MonJune 13 09:19:52 EDT 2024 Diastolic Blood Pressure 78.00 mm[Hg] MonJune 13 09:19:52 EDT 5 Systolic Blood Pressure 135.00 mm[Hg] MonJune 13 09:19:52 EDT 2024 Diastolic Blood Pressure 78.00 mm[Hg] Kelsy June 13 09:19:52 EDT 2025 Heart Rate 79.00 /min Kelsy June 13 09:19 :52 EDT 2024 Heart Rate 79.00 /min Kelsy June 13 09:19 :52 EDT 2024 Systolic Blood Pressure 118.00 mm[Hg] MonJune 13 00:44:50 EDT 2024 Diastolic Blood Pressure 73.00 mm[Hg] Kelsy June 13 00:44:50 EDT 2024 Heart Rate 86.00 /min MonJune 13 00:44 :50 EDT 2024 Body temperature 98.00 [degF] Kelsy June 13 00:4 4:50 EDT 2024 Respiratory rate 20.00 /min Kelsy June 13 00:4 4:50 EDT 2024 Pulse Oximetry 95.00 % MonJune 13 00:44 :50 EDT 2024 Systolic Blood Pressure 118.00 mm[Hg] MonJune 12 20:48:28 EDT 2024 Diastolic Blood Pressure 73.00 mm[Hg] MonJune 12 20:48:28 EDT 2024 Heart Rate 75.00 /min MonJune 12 20:48 :28 EDT 2024 Systolic Blood Pressure 114.00 mm[Hg] MonJune 12 09:36:28 EDT 2024 Diastolic Blood Pressure 73.00 mm[Hg] MonJune 12 09:36:28 EDT 2024 Systolic Blood Pressure 114.00 mm[Hg] MonJune 12 09:36:28 EDT 2024 Diastolic Blood Pressure 73.00 mm[Hg] MonJune 12 09:36:28 EDT 2024 Heart Rate 78.00 /min MonJune 12 09:36 :28 EDT 2024 Heart Rate 78.00 /min MonJune 12 09:36 :28 EDT 2024 Systolic Blood Pressure 114.00 mm[Hg] MonJune 12 07:59:47 EDT 2024 Diastolic Blood Pressure 73.00 mm[Hg] MonJune 12 07:59:47 EDT 2024 Heart Rate 78.00 /min MonJune 12 07:59 :47 EDT 2024 Pulse Oximetry 97.00 % MonJune 12 07:59 :47 EDT 2024 Systolic Blood Pressure 128.00 mm[Hg] MonJune 11 20:48:34 EDT 2024 Diastolic Blood Pressure 76.00 mm[Hg] MonJune 11 20:48:34 EDT 2024 Heart Rate 85.00 /min MonJune 11 20:48 :34 EDT 2024 Systolic Blood Pressure 123.00 mm[Hg] MonJune 11 09:33:52 EDT 2024 Diastolic Blood Pressure 65.00 mm[Hg] MonJune 11 09:33:52 EDT 2024 Systolic Blood Pressure 123.00 mm[Hg] MonJune 11 09:33:52 EDT 2024 Diastolic Blood Pressure 65.00 mm[Hg] MonJune 11 09:33:52 EDT 2024 Heart Rate 73.00 /min MonJune 11 09:33 :52 EDT 2024 Heart Rate 73.00 /min MonJune 11 09:33 :52 EDT 2024 Systolic Blood Pressure 123.00 mm[Hg] MonJune 11 07:34:59 EDT 2024 Diastolic Blood Pressure 65.00 mm[Hg] MonJune 11 07:34:59 EDT 2024 Heart Rate 73.00 /min MonJune 11 07:34 :59 EDT 2024 Pulse Oximetry 96.00 % MonJune 11 07:34 :59 EDT 2024 Systolic Blood Pressure 97.00 mm[Hg] MonJune 10 22:36:16 EDT 2024 Diastolic Blood Pressure 69.00 mm[Hg] MonJune 10 22:36:16 EDT 2024 Heart Rate 88.00 /min MonJune 10 22:36 :16 EDT 2024 Systolic Blood Pressure 128.00 mm[Hg] MonJune 10 09:46:40 EDT 2024 Diastolic Blood Pressure 83.00 mm[Hg] MonJune 10 09:46:40 EDT 2024 Systolic Blood Pressure 128.00 mm[Hg] MonJune 10 09:46:40 EDT 2024 Diastolic Blood Pressure 83.00 mm[Hg] MonJune 10 09:46:40 EDT 2024 Heart Rate 85.00 /min MonJune 10 09:46 :40 EDT 2024 Heart Rate 85.00 /min MonJune 10 09:46 :40 EDT 2024 Systolic Blood Pressure 97.00 mm[Hg] MonJune 09 20:52:41 EDT 2024 Diastolic Blood Pressure 50.00 mm[Hg] MonJune 09 20:52:41 EDT 2024 Heart Rate 84.00 /min MonJune 09 20:52 :41 EDT 2024 Body temperature 97.20 [degF] MonJune 09 15:0 7:06 EDT 2024 Systolic Blood Pressure 125.00 mm[Hg] MonJune 09 09:36:55 EDT 2024 Diastolic Blood Pressure 85.00 mm[Hg] MonJune 09 09:36:55 EDT 2024 Systolic Blood Pressure 125.00 mm[Hg] MonJune 09 09:36:55 EDT 2024 Diastolic Blood Pressure 85.00 mm[Hg] MonJune 09 09:36:55 EDT 2024 Heart Rate 76.00 /min MonJune 09 09:36 :55 EDT 2024 Heart Rate 76.00 /min MonJune 09 09:36 :55 EDT 2024 Systolic Blood Pressure 125.00 mm[Hg] MonJune 09 07:51:22 EDT 2024 Diastolic Blood Pressure 85.00 mm[Hg] MonJune 09 07:51:22 EDT 2024 Heart Rate 72.00 /min MonJune 09 07:51 :22 EDT 2024 Pulse Oximetry 97.00 % Basom June 09 07:51 :22 EDT 2024 Systolic Blood Pressure 114.00 mm[Hg] [facility] June 08 22:14:16 EDT 2024 Diastolic Blood Pressure 69.00 mm[Hg] MonJune 08 22:14:16 EDT 2024 Heart Rate 69.00 /min MonJune 08 22:14 :16 EDT 2024 Body temperature 97.50 [degF] MonJune 08 16:0 2:35 EDT 2024 Systolic Blood Pressure 116.00 mm[Hg] MonJune 08 09:46:10 EDT 2024 Diastolic Blood Pressure 74.00 mm[Hg] MonJune 08 09:46:10 EDT 2024 Systolic Blood Pressure 116.00 mm[Hg] MonJune 08 09:46:10 EDT 2024 Diastolic Blood Pressure 74.00 mm[Hg] MonJune 08 09:46:10 EDT 2024 Heart Rate 72.00 /min MonJune 08 09:46 :10 EDT 2024 Heart Rate 72.00 /min MonJune 08 09:46 :10 EDT 2024 Body temperature 97.20 [degF] MonJune 08 09:4 6:10 EDT 2024 Systolic Blood Pressure 109.00 mm[Hg] MonJune 07 23:24:24 EDT 2024 Diastolic Blood Pressure 66.00 mm[Hg] MonJune 07 23:24:24 EDT 2024 Heart Rate 83.00 /min MonJune 07 23:24 :24 EDT 2024 Body temperature 98.50 [degF] MonJune 07 23:2 4:24 EDT 2024 Systolic Blood Pressure 133.00 mm[Hg] MonJune 07 09:24:06 EDT 2024 Diastolic Blood Pressure 76.00 mm[Hg] MonJune 07 09:24:06 EDT 2024 Systolic Blood Pressure 133.00 mm[Hg] MonJune 07 09:24:06 EDT 2024 Diastolic Blood Pressure 76.00 mm[Hg] MonJune 07 09:24:06 EDT 2024 Heart Rate 92.00 /min MonJune 07 09:24 :06 EDT 2024 Heart Rate 92.00 /min MonJune 07 09:24 :06 EDT 2024 Body temperature 97.20 [degF] MonJune 07 08:2 6:10 EDT 2024 Body temperature 97.50 [degF] MonJune 07 04:1 6:47 EDT 2024 Systolic Blood Pressure 135.00 mm[Hg] MonJune 06 20:15:38 EDT 2024 Diastolic Blood Pressure 74.00 mm[Hg] MonJune 06 20:15:38 EDT 2024 Heart Rate 82.00 /min MonJune 06 20:15 :38 EDT 2024 Systolic Blood Pressure 123.00 mm[Hg] MonJune 06 09:37:41 EDT 2024 Diastolic Blood Pressure 70.00 mm[Hg] MonJune 06 09:37:41 EDT 2024 Systolic Blood Pressure 123.00 mm[Hg] MonJune 06 09:37:41 EDT 2024 Diastolic Blood Pressure 70.00 mm[Hg] MonJune 06 09:37:41 EDT 2024 Heart Rate 76.00 /min MonJune 06 09:37 :41 EDT 2024 Heart Rate 76.00 /min MonJune 06 09:37 :41 EDT 2024 Systolic Blood Pressure 143.00 mm[Hg] MonJune 06 02:47:52 EDT 2024 Diastolic Blood Pressure 81.00 mm[Hg] MonJune 06 02:47:52 EDT 2024 Pulse Oximetry 96.00 % MonJune 06 02:47 :52 EDT 2024 Heart Rate 75.00 /min MonJune 06 02:47 :52 EDT 2024 Respiratory rate 18.00 /min MonJune 06 02:4 7:52 EDT 2025 Body temperature 98.50 [degF] MonJune 06 02:4 7:52 EDT 2024 Systolic Blood Pressure 143.00 mm[Hg] MonJun 05 20:28:59 EDT 2024 Diastolic Blood Pressure 81.00 mm[Hg] MonJun 05 20:28:59 EDT 2024 Heart Rate 70.00 /min MonJun 05 20:28 :59 EDT 2024 Systolic Blood Pressure 151.00 mm[Hg] MonJun 05 09:55:38 EDT 2024 Diastolic Blood Pressure 87.00 mm[Hg] MonJun 05 09:55:38 EDT 2024 Systolic Blood Pressure 151.00 mm[Hg] MonJun 05 09:55:38 EDT 2024 Diastolic Blood Pressure 87.00 mm[Hg] MonJun 05 09:55:38 EDT 2024 Heart Rate 84.00 /min MonJun 05 09:55 :38 EDT 2024 Heart Rate 84.00 /min MonJun 05 09:55 :38 EDT 2024 Systolic Blood Pressure 106.00 mm[Hg] MonJun 04 23:11:02 EDT 2024 Diastolic Blood Pressure 59.00 mm[Hg] MonJun 04 23:11:02 EDT 2024 Heart Rate 75.00 /min MonJun 04 23:11 :02 EDT 2024 Systolic Blood Pressure 117.00 mm[Hg] MonJun 04 10:39:36 EDT 2024 Diastolic Blood Pressure 73.00 mm[Hg] MonJun 04 10:39:36 EDT 2024 Systolic Blood Pressure 117.00 mm[Hg] MonJun 04 10:39:36 EDT 2024 Diastolic Blood Pressure 73.00 mm[Hg] MonJun 04 10:39:36 EDT 2024 Heart Rate 78.00 /min MonJun 04 10:39 :36 EDT 2024 Heart Rate 78.00 /min MonJun 04 10:39 :36 EDT 2024 Systolic Blood Pressure 132.00 mm[Hg] MonJun 03 20:11:38 EDT 2024 Diastolic Blood Pressure 74.00 mm[Hg] MonJun 03 20:11:38 EDT 2024 Heart Rate 82.00 /min MonJun 03 20:11 :38 EDT 2024 Body weight 201.00 [lb_av] MonJun 03 15:37 :05 EDT 2024 Systolic Blood Pressure 136.00 mm[Hg] Mon Apr 28 08:47:11 EDT 2024 Diastolic Blood Pressure 77.00 mm[Hg] Mon Apr 08:47:11 EDT 2024 Systolic Blood Pressure 136.00 mm[Hg] Mon Apr 08:47:11 EDT 2024 Diastolic Blood Pressure 77.00 mm[Hg] Mon Apr 08:47:11 EDT 2024 Heart Rate 77.00 /min Mon Apr 08:47 :11 EDT 2024 Heart Rate 77.00 /min Mon Apr 08:47 :11 EDT 2024 Systolic Blood Pressure 98.00 mm[Hg] Sun Apr 23:41:01 EDT 2024 Diastolic Blood Pressure 55.00 mm[Hg] Sun Apr 23:41:01 EDT 2024 Heart Rate 81.00 /min Sun Apr 23:41 :01 EDT 2024 Systolic Blood Pressure 114.00 mm[Hg] Sun Apr 09:20:23 EDT 2024 Diastolic Blood Pressure 70.00 mm[Hg] Sun Apr 09:20:23 EDT 2024 Systolic Blood Pressure 114.00 mm[Hg] Sun Apr 09:20:23 EDT 2024 Diastolic Blood Pressure 70.00 mm[Hg] Sun Apr 09:20:23 EDT 2024 Heart Rate 77.00 /min Sun Apr 09:20 :23 EDT 2024 Heart Rate 77.00 /min Sun Apr 09:20 :23 EDT 2024 Systolic Blood Pressure 114.00 mm[Hg] Sun Apr 07:28:51 EDT 2024 Diastolic Blood Pressure 70.00 mm[Hg] Sun Apr 07:28:51 EDT 2024 Pulse Oximetry 98.00 % Sun Apr 07:28 :51 EDT 2024 Heart Rate 77.00 /min Sun Apr 07:28 :51 EDT 2024 Systolic Blood Pressure 130.00 mm[Hg] Sat Apr 20:38:09 EDT 2024 Diastolic Blood Pressure 61.00 mm[Hg] Sat Apr 20:38:09 EDT 2024 Heart Rate 62.00 /min Sat Apr 20:38 :09 EDT 2024 Systolic Blood Pressure 147.00 mm[Hg] Sat Apr 09:19:26 EDT 2024 Diastolic Blood Pressure 91.00 mm[Hg] Sat Apr 26 09:19:26 EDT 2024 Systolic Blood Pressure 147.00 mm[Hg] Sat Apr 26 09:19:26 EDT 2024 Diastolic Blood Pressure 91.00 mm[Hg] Sat Apr 26 09:19:26 EDT 2024 Heart Rate 71.00 /min Sat Apr 01 11:19 :26 EDT 2024 Heart Rate 71.00 /min Sat Apr 09:19 :26 EDT 2024 Systolic Blood Pressure 116.00 mm[Hg] Fri May 25 23:17:33 EDT 2024 Diastolic Blood Pressure 57.00 mm[Hg] Fri May 31 23:17:33 EDT 2024 Heart Rate 73.00 /min Fri May 31 23:17 :33 EDT 2024 Systolic Blood Pressure 131.00 mm[Hg] Mon 25 08:42:37 EDT 2024 Diastolic Blood Pressure 81.00 mm[Hg] MonMay 31 08:42:37 EDT 2024 Systolic Blood Pressure 131.00 mm[Hg] MonMay 31 08:42:37 EDT 2024 Diastolic Blood Pressure 81.00 mm[Hg] MonMay 31 08:42:37 EDT 2024 Heart Rate 76.00 /min MonMay 31 08:42 :37 EDT 2024 Heart Rate 76.00 /min MonMay 31 08:42 :37 EDT 2024 Systolic Blood Pressure 132.00 mm[Hg] Kelsy Apr 24 20:12:02 EDT 2024 Diastolic Blood Pressure 75.00 mm[Hg] Kelsy May 24 20:12:02 EDT 2024 Heart Rate 68.00 /min Kelsy Apr 24 20:12 :02 EDT 2024 Systolic Blood Pressure 125.00 mm[Hg] Kelsy Apr 24 09:40:35 EDT 2024 Diastolic Blood Pressure 81.00 mm[Hg] Kelsy Apr 24 09:40:35 EDT 2024 Systolic Blood Pressure 125.00 mm[Hg] Kelsy Apr 24 09:40:35 EDT 2024 Diastolic Blood Pressure 81.00 mm[Hg] Kelsy Apr 24 09:40:35 EDT 2024 Heart Rate 81.00 /min Kelsy Apr 24 09:40 :35 EDT 2024 Heart Rate 81.00 /min Kelsy Apr 24 09:40 :35 EDT 2024 Systolic Blood Pressure 125.00 mm[Hg] Kelsy Apr 24 08:23:57 EDT 2024 Diastolic Blood Pressure 81.00 mm[Hg] Kelsy May 24 08:23:57 EDT 2024 Heart Rate 81.00 /min Kelsy May 30 08:23 :57 EDT 2024 Pulse Oximetry 98.00 % Kelsy May 30 08:23 :57 EDT 2024 Systolic Blood Pressure 118.00 mm[Hg] Kelsy May 30 05:18:04 EDT 2024 Diastolic Blood Pressure 62.00 mm[Hg] Kelsy May 30 05:18:04 EDT 2024 Heart Rate 85.00 /min Kelsy May 30 05:18 :04 EDT 2024 Body temperature 98.50 [degF] Kelsy May 30 05:1 8:04 EDT 2024 Respiratory rate 18.00 /min Kelsy May 30 05:1 8:04 EDT 2024 Pulse Oximetry 97.00 % Kelsy May 30 05:18 :04 EDT 2024 Systolic Blood Pressure 147.00 mm[Hg] MonMay 29 20:24:28 EDT 2024 Diastolic Blood Pressure 73.00 mm[Hg] MonMay 29 20:24:28 EDT 2024 Heart Rate 78.00 /min MonMay 29 20:24 :28 EDT 2024 Systolic Blood Pressure 141.00 mm[Hg] MonMay 29 10:39:44 EDT 2024 Diastolic Blood Pressure 79.00 mm[Hg] MonMay 29 10:39:44 EDT 2024 Systolic Blood Pressure 141.00 mm[Hg] MonMay 29 10:39:44 EDT 2024 Diastolic Blood Pressure 79.00 mm[Hg] MonMay 29 10:39:44 EDT 2024 Heart Rate 75.00 /min MonMay 29 10:39 :44 EDT 2024 Heart Rate 75.00 /min MonMay 29 10:39 :44 EDT 2024 Systolic Blood Pressure 141.00 mm[Hg] MonMay 29 07:28:01 EDT 2024 Diastolic Blood Pressure 79.00 mm[Hg] MonMay 29 07:28:01 EDT 2024 Pulse Oximetry 98.00 % MonMay 29 07:28 :01 EDT 2024 Heart Rate 75.00 /min MonMay 29 07:28 :01 EDT 2024 Systolic Blood Pressure 132.00 mm[Hg] MonMay 28 20:25:31 EDT 2024 Diastolic Blood Pressure 78.00 mm[Hg] MonMay 28 20:25:31 EDT 2024 Heart Rate 82.00 /min MonMay 28 20:25 :31 EDT 2024 Systolic Blood Pressure 125.00 mm[Hg] MonMay 28 09:18:44 EDT 2024 Diastolic Blood Pressure 73.00 mm[Hg] MonMay 28 09:18:44 EDT 2024 Systolic Blood Pressure 125.00 mm[Hg] MonMay 28 09:18:44 EDT 2024 Diastolic Blood Pressure 73.00 mm[Hg] MonMay 28 09:18:44 EDT 2024 Heart Rate 84.00 /min MonMay 28 09:18 :44 EDT 2024 Heart Rate 84.00 /min MonMay 28 09:18 :44 EDT 2024 Systolic Blood Pressure 125.00 mm[Hg] MonMay 28 09:08:49 EDT 2024 Diastolic Blood Pressure 73.00 mm[Hg] MonMay 28 09:08:49 EDT 2024 Systolic Blood Pressure 136.00 mm[Hg] MonMay 27 21:22:34 EDT 2024 Diastolic Blood Pressure 74.00 mm[Hg] MonMay 27 21:22:34 EDT 2024 Heart Rate 68.00 /min MonMay 27 21:22 :34 EDT 2024 Body weight 195.80 [lb_av] MonMay 27 13:43 :29 EDT 2024 Body weight 195.80 [lb_av] MonMay 27 12:59 :01 EDT 2024 Systolic Blood Pressure 145.00 mm[Hg] MonMay 27 09:33:26 EDT 2024 Diastolic Blood Pressure 80.00 mm[Hg] MonMay 27 09:33:26 EDT 2024 Systolic Blood Pressure 145.00 mm[Hg] MonMay 27 09:33:26 EDT 2024 Diastolic Blood Pressure 80.00 mm[Hg] MonMay 27 09:33:26 EDT 2024 Heart Rate 75.00 /min MonMay 27 09:33 :26 EDT 2024 Heart Rate 75.00 /min MonMay 27 09:33 :26 EDT 2024 Systolic Blood Pressure 143.00 mm[Hg] MonMay 26 20:08:22 EDT 2024 Diastolic Blood Pressure 74.00 mm[Hg] MonMay 26 20:08:22 EDT 2024 Heart Rate 82.00 /min MonMay 26 20:08 :22 EDT 2024 Systolic Blood Pressure 152.00 mm[Hg] Sun Apr 20 09:01:49 EDT 5 Diastolic Blood Pressure 95.00 mm[Hg] Sun Apr 20 09:01:49 EDT 5 Systolic Blood Pressure 152.00 mm[Hg] Sun Apr 20 09:01:49 EDT 5 Diastolic Blood Pressure 95.00 mm[Hg] Sun Apr 20 09:01:49 EDT 5 Heart Rate 88.00 /min Sun Apr 20 09:01 :49 EDT 5 Heart Rate 88.00 /min Sun Apr 20 09:01 :49 EDT 5 Systolic Blood Pressure 152.00 mm[Hg] Sun Apr 20 08:12:49 EDT 5 Diastolic Blood Pressure 95.00 mm[Hg] Sun Apr 20 08:12:49 EDT 2024 Heart Rate 88.00 /min Sun Apr 20 08:12 :49 EDT 2024 Pulse Oximetry 98.00 % Sun Apr 20 08:12 :49 EDT 2024 Systolic Blood Pressure 116.00 mm[Hg] Sat Apr 19 20:47:26 EDT 2024 Diastolic Blood Pressure 70.00 mm[Hg] Sat Apr 19 20:47:26 EDT 2024 Heart Rate 72.00 /min Sat Apr 19 20:47 :26 EDT 5 Systolic Blood Pressure 135.00 mm[Hg] Sat Apr 19 09:19:05 EDT 2024 Diastolic Blood Pressure 75.00 mm[Hg] Sat Apr 19 09:19:05 EDT 2024 Systolic Blood Pressure 135.00 mm[Hg] Sat Apr 19 09:19:05 EDT 2024 Diastolic Blood Pressure 75.00 mm[Hg] Sat Apr 19 09:19:05 EDT 2024 Heart Rate 72.00 /min Sat Apr 19 09:19 :05 EDT 2024 Heart Rate 72.00 /min Sat Apr 19 09:19 :05 EDT 5 Systolic Blood Pressure 129.00 mm[Hg] Sat Apr 19 08:14:58 EDT 2024 Diastolic Blood Pressure 71.00 mm[Hg] Sat Apr 19 08:14:58 EDT 2024 Pulse Oximetry 97.00 % Sat Apr 19 08:14 :58 EDT 2024 Heart Rate 50.00 /min Sat Apr 19 08:14 :58 EDT 2024 Systolic Blood Pressure 130.00 mm[Hg] Sat Apr 19 08:10:14 EDT 2024 Diastolic Blood Pressure 75.00 mm[Hg] Sat Apr 19 08:10:14 EDT 2024 Pulse Oximetry 100.00 % Sat Apr 19 08:10 :14 EDT 2024 Heart Rate 72.00 /min Sat Apr 19 08:10 :14 EDT 2024 Systolic Blood Pressure 98.00 mm[Hg] Fri May 18 22:51:11 EDT 2024 Diastolic Blood Pressure 61.00 mm[Hg] Fri May 18 22:51:11 EDT 2024 Heart Rate 82.00 /min Mon 18 22:51 :11 EDT 2024 Systolic Blood Pressure 131.00 mm[Hg] Mon 18 08:59:09 EDT 2024 Diastolic Blood Pressure 76.00 mm[Hg] Mon 18 08:59:09 EDT 2024 Systolic Blood Pressure 131.00 mm[Hg] Mon 18 08:59:09 EDT 2024 Diastolic Blood Pressure 76.00 mm[Hg] Mon 18 08:59:09 EDT 2024 Heart Rate 79.00 /min Mon 18 08:59 :09 EDT 2024 Heart Rate 79.00 /min Mon 18 08:59 :09 EDT 2024 Systolic Blood Pressure 132.00 mm[Hg] Kelsy May 17 20:36:05 EDT 2024 Diastolic Blood Pressure 68.00 mm[Hg] Kelsy May 17 20:36:05 EDT 2024 Heart Rate 75.00 /min Kelsy May 17 20:36 :05 EDT 2024 Systolic Blood Pressure 126.00 mm[Hg] Kelsy Apr 17 10:52:12 EDT 2024 Diastolic Blood Pressure 79.00 mm[Hg] Kelsy May 17 10:52:12 EDT 2024 Systolic Blood Pressure 126.00 mm[Hg] Kelsy Apr 17 10:52:12 EDT 2024 Diastolic Blood Pressure 79.00 mm[Hg] Kelsy Apr 17 10:52:12 EDT 2024 Heart Rate 79.00 /min Kelsy May 17 10:52 :12 EDT 2024 Heart Rate 79.00 /min Kelsy May 17 10:52 :12 EDT 2024 Systolic Blood Pressure 126.00 mm[Hg] Mon 16 22:48:44 EDT 2024 Diastolic Blood Pressure 77.00 mm[Hg] Mon 16 22:48:44 EDT 2024 Heart Rate 82.00 /min Wed Apr 16 22:48 :44 EDT 2024 Body temperature 97.50 [degF] Mon 16 22:4 8:44 EDT 2024 Respiratory rate 18.00 /min Mon 16 22:4 8:44 EDT 2024 Pulse Oximetry 97.00 % Mon 16 22:48 :44 EDT 2024 Systolic Blood Pressure 126.00 mm[Hg] Mon 16 20:38:31 EDT 2024 Diastolic Blood Pressure 77.00 mm[Hg] Mon 16 20:38:31 EDT 2024 Heart Rate 75.00 /min Mon 16 20:38 :31 EDT 2024 Systolic Blood Pressure 133.00 mm[Hg] Mon 16 09:29:48 EDT 2024 Diastolic Blood Pressure 73.00 mm[Hg] Mon 16 09:29:48 EDT 2024 Systolic Blood Pressure 133.00 mm[Hg] Mon 16 09:29:48 EDT 2024 Diastolic Blood Pressure 73.00 mm[Hg] Mon 16 09:29:48 EDT 2024 Heart Rate 80.00 /min Mon 16 09:29 :48 EDT 2024 Heart Rate 80.00 /min Mon 16 09:29 :48 EDT 2024 Systolic Blood Pressure 133.00 mm[Hg] Mon 16 08:16:20 EDT 2024 Diastolic Blood Pressure 73.00 mm[Hg] Mon 16 08:16:20 EDT 2024 Heart Rate 80.00 /min Mon 16 08:16 :20 EDT 2024 Body temperature 97.00 [degF] Mon 16 08:1 6:20 EDT 2024 Pulse Oximetry 97.00 % Mon 16 08:16 :20 EDT 2024 Respiratory rate 18.00 /min Mon 16 08:1 6:20 EDT 2024 Systolic Blood Pressure 101.00 mm[Hg] MonMay 21 23:40:24 EDT 2024 Diastolic Blood Pressure 60.00 mm[Hg] MonMay 21 23:40:24 EDT 2024 Heart Rate 69.00 /min MonMay 21 23:40 :24 EDT 2024 Systolic Blood Pressure 137.00 mm[Hg] MonMay 21 10:47:42 EDT 2024 Diastolic Blood Pressure 79.00 mm[Hg] MonMay 21 10:47:42 EDT 2024 Systolic Blood Pressure 137.00 mm[Hg] Mon 15 10:47:42 EDT 2024 Diastolic Blood Pressure 79.00 mm[Hg] Mon 15 10:47:42 EDT 2024 Heart Rate 79.00 /min Mon 15 10:47 :42 EDT 2024 Heart Rate 79.00 /min Mon 15 10:47 :42 EDT 2024 Systolic Blood Pressure 128.00 mm[Hg] Mon 14 20:21:41 EDT 2024 Diastolic Blood Pressure 75.00 mm[Hg] Mon 14 20:21:41 EDT 2024 Heart Rate 88.00 /min Mon 14 20:21 :41 EDT 2024 Body weight 193.60 [lb_av] Mon 14 18:21 :13 EDT 2024 Systolic Blood Pressure 124.00 mm[Hg] Mon 14 09:50:58 EDT 2024 Diastolic Blood Pressure 68.00 mm[Hg] Mon 14 09:50:58 EDT 2024 Systolic Blood Pressure 124.00 mm[Hg] Mon 14 09:50:58 EDT 2024 Diastolic Blood Pressure 68.00 mm[Hg] Mon 14 09:50:58 EDT 2024 Heart Rate 76.00 /min Mon 14 09:50 :58 EDT 2024 Heart Rate 76.00 /min Mon 14 09:50 :58 EDT 2024 Systolic Blood Pressure 100.00 mm[Hg] Sun May 19 23:12:09 EDT 2024 Diastolic Blood Pressure 55.00 mm[Hg] Sun May 19 23:12:09 EDT 2024 Heart Rate 80.00 /min Sun May 19 23:12 :09 EDT 2024 Systolic Blood Pressure 161.00 mm[Hg] Sun May 19 09:27:35 EDT 2024 Diastolic Blood Pressure 97.00 mm[Hg] Sun May 19 09:27:35 EDT 2024 Systolic Blood Pressure 161.00 mm[Hg] Sun May 19 09:27:35 EDT 2024 Diastolic Blood Pressure 97.00 mm[Hg] Sun May 19 09:27:35 EDT 2024 Heart Rate 80.00 /min Sun Apr 09:27 :35 EDT 2024 Heart Rate 80.00 /min Sun Apr 09:27 :35 EDT 2024 Systolic Blood Pressure 161.00 mm[Hg] Sun Apr 08:17:56 EDT 2025 Diastolic Blood Pressure 97.00 mm[Hg] Sun Apr 13 08:17:56 EDT 2024 Heart Rate 80.00 /min Sun Apr 13 08:17 :56 EDT 2024 Systolic Blood Pressure 105.00 mm[Hg] Sat Apr 12 20:54:31 EDT 2024 Diastolic Blood Pressure 60.00 mm[Hg] Sat Apr 12 20:54:31 EDT 2024 Heart Rate 77.00 /min Sat Apr 12 20:54 :31 EDT 5 Systolic Blood Pressure 137.00 mm[Hg] Sat Apr 12 10:56:35 EDT 2024 Diastolic Blood Pressure 81.00 mm[Hg] Sat Apr 12 10:56:35 EDT 2024 Systolic Blood Pressure 137.00 mm[Hg] Sat Apr 12 10:56:35 EDT 2024 Diastolic Blood Pressure 81.00 mm[Hg] Sat Apr 12 10:56:35 EDT 2024 Heart Rate 56.00 /min Sat Apr 12 10:56 :35 EDT 2024 Heart Rate 56.00 /min Sat Apr 12 10:56 :35 EDT 2024 Systolic Blood Pressure 152.00 mm[Hg] Fri May 11 23:26:10 EDT 2024 Diastolic Blood Pressure 78.00 mm[Hg] Fri May 11 23:26:10 EDT 2024 Heart Rate 80.00 /min Mon 11 23:26 :10 EDT 2024 Systolic Blood Pressure 136.00 mm[Hg] MonMay 17 10:16:45 EDT 2024 Diastolic Blood Pressure 72.00 mm[Hg] MonMay 17 10:16:45 EDT 2024 Systolic Blood Pressure 136.00 mm[Hg] MonMay 17 10:16:45 EDT 2024 Diastolic Blood Pressure 72.00 mm[Hg] MonMay 17 10:16:45 EDT 2024 Heart Rate 73.00 /min MonMay 17 10:16 :45 EDT 2024 Heart Rate 73.00 /min MonMay 17 10:16 :45 EDT 2024 Systolic Blood Pressure 128.00 mm[Hg] Kelsy Apr 10 20:33:34 EDT 2024 Diastolic Blood Pressure 72.00 mm[Hg] Kelsy Apr 10 20:33:34 EDT 2024 Heart Rate 85.00 /min Kelsy Apr 10 20:33 :34 EDT 2024 Systolic Blood Pressure 136.00 mm[Hg] Kelsy Apr 10 09:03:17 EDT 2024 Diastolic Blood Pressure 72.00 mm[Hg] Kelsy May 16 09:03:17 EDT 2024 Systolic Blood Pressure 136.00 mm[Hg] Kelsy May 16 09:03:17 EDT 2024 Diastolic Blood Pressure 72.00 mm[Hg] Kelsy May 16 09:03:17 EDT 2024 Heart Rate 73.00 /min Kelsy May 16 09:03 :17 EDT 2024 Heart Rate 73.00 /min Kelsy May 16 09:03 :17 EDT 2024 Systolic Blood Pressure 134.00 mm[Hg] MonMay 15 21:13:15 EDT 2024 Diastolic Blood Pressure 72.00 mm[Hg] MonMay 15 21:13:15 EDT 2024 Heart Rate 76.00 /min MonMay 15 21:13 :15 EDT 2024 Body temperature 98.00 [degF] MonMay 15 21:1 3:15 EDT 2024 Respiratory rate 17.00 /min MonMay 15 21:1 3:15 EDT 2024 Pulse Oximetry 94.00 % MonMay 15 21:13 :15 EDT 2024 Systolic Blood Pressure 134.00 mm[Hg] MonMay 15 20:21:49 EDT 2024 Diastolic Blood Pressure 72.00 mm[Hg] MonMay 15 20:21:49 EDT 2024 Heart Rate 76.00 /min MonMay 15 20:21 :49 EDT 2024 Systolic Blood Pressure 134.00 mm[Hg] MonMay 15 15:38:33 EDT 2024 Diastolic Blood Pressure 72.00 mm[Hg] MonMay 15 15:38:33 EDT 2024 Heart Rate 82.00 /min MonMay 15 15:38 :33 EDT 2024 Body temperature 98.00 [degF] MonMay 15 15:3 8:33 EDT 2024 Respiratory rate 17.00 /min MonMay 15 15:3 8:33 EDT 2024 Pulse Oximetry 94.00 % MonMay 15 15:38 :33 EDT 2024 Systolic Blood Pressure 134.00 mm[Hg] MonMay 15 11:24:52 EDT 2024 Diastolic Blood Pressure 71.00 mm[Hg] MonMay 15 11:24:52 EDT 2024 Systolic Blood Pressure 134.00 mm[Hg] MonMay 15 11:24:52 EDT 2024 Diastolic Blood Pressure 71.00 mm[Hg] MonMay 15 11:24:52 EDT 2024 Heart Rate 65.00 /min MonMay 15 11:24 :52 EDT 2024 Heart Rate 65.00 /min MonMay 15 11:24 :52 EDT 2024 Systolic Blood Pressure 135.00 mm[Hg] MonMay 14 20:33:54 EDT 2024 Diastolic Blood Pressure 76.00 mm[Hg] MonMay 14 20:33:54 EDT 2024 Heart Rate 82.00 /min MonMay 14 20:33 :54 EDT 2024 Systolic Blood Pressure 159.00 mm[Hg] MonMay 14 09:55:01 EDT 2024 Diastolic Blood Pressure 88.00 mm[Hg] MonMay 14 09:55:01 EDT 2024 Systolic Blood Pressure 159.00 mm[Hg] MonMay 14 09:55:01 EDT 2024 Diastolic Blood Pressure 88.00 mm[Hg] MonMay 14 09:55:01 EDT 2024 Heart Rate 78.00 /min MonMay 14 09:55 :01 EDT 2024 Heart Rate 78.00 /min MonMay 14 09:55 :01 EDT 2024 Systolic Blood Pressure 159.00 mm[Hg] MonMay 14 07:50:42 EDT 2024 Diastolic Blood Pressure 88.00 mm[Hg] MonMay 14 07:50:42 EDT 2024 Pulse Oximetry 99.00 % MonMay 14 07:50 :42 EDT 2024 Heart Rate 78.00 /min MonMay 14 07:50 :42 EDT 2024 Systolic Blood Pressure 142.00 mm[Hg] MonMay 13 22:45:36 EDT 2024 Diastolic Blood Pressure 88.00 mm[Hg] MonMay 13 22:45:36 EDT 2024 Heart Rate 78.00 /min MonMay 13 22:45 :36 EDT 2024 Body weight 199.40 [lb_av] MonMay 13 15:26 :04 EDT 2024 Systolic Blood Pressure 148.00 mm[Hg] MonMay 13 10:47:07 EDT 2024 Diastolic Blood Pressure 82.00 mm[Hg] MonMay 13 10:47:07 EDT 2024 Systolic Blood Pressure 148.00 mm[Hg] MonMay 13 10:47:07 EDT 2024 Diastolic Blood Pressure 82.00 mm[Hg] MonMay 13 10:47:07 EDT 2024 Heart Rate 70.00 /min MonMay 13 10:47 :07 EDT 2024 Heart Rate 70.00 /min MonMay 13 10:47 :07 EDT 2024 Systolic Blood Pressure 148.00 mm[Hg] MonMay 13 07:42:13 EDT 2024 Diastolic Blood Pressure 82.00 mm[Hg] MonMay 13 07:42:13 EDT 2024 Pulse Oximetry 98.00 % MonMay 13 07:42 :13 EDT 2024 Heart Rate 70.00 /min MonMay 13 07:42 :13 EDT 2024 Systolic Blood Pressure 107.00 mm[Hg] Sun May 12 22:38:31 EDT 2024 Diastolic Blood Pressure 63.00 mm[Hg] Sun May 12 22:38:31 EDT 2024 Heart Rate 76.00 /min Sun May 12 22:38 :31 EDT 2024 Systolic Blood Pressure 119.00 mm[Hg] Sun May 12 09:45:36 EDT 2024 Diastolic Blood Pressure 78.00 mm[Hg] Sun May 12 09:45:36 EDT 2024 Systolic Blood Pressure 119.00 mm[Hg] Sun May 12 09:45:36 EDT 2024 Diastolic Blood Pressure 78.00 mm[Hg] Sun May 12 09:45:36 EDT 2024 Heart Rate 84.00 /min Sun May 12 09:45 :36 EDT 2024 Heart Rate 84.00 /min Sun May 12 09:45 :36 EDT 2024 Systolic Blood Pressure 105.00 mm[Hg] Sun May 12 01:08:38 EDT 2024 Diastolic Blood Pressure 64.00 mm[Hg] Sun May 06 01:08:38 EDT 2024 Heart Rate 84.00 /min Sun May 06 01:08 :38 EDT 2024 Systolic Blood Pressure 109.00 mm[Hg] Sat May 11 09:41:01 EDT 2024 Diastolic Blood Pressure 71.00 mm[Hg] Sat May 11 09:41:01 EDT 2024 Systolic Blood Pressure 109.00 mm[Hg] Sat May 11 09:41:01 EDT 2024 Diastolic Blood Pressure 71.00 mm[Hg] Sat May 11 09:41:01 EDT 2024 Heart Rate 91.00 /min Sat May 11 09:41 :01 EDT 2025 Heart Rate 91.00 /min Sat May 11 09:41 :01 EDT 5 Systolic Blood Pressure 103.00 mm[Hg] Fri May 10 21:41:52 EDT 2024 Diastolic Blood Pressure 60.00 mm[Hg] Fri May 10 21:41:52 EDT 2024 Heart Rate 77.00 /min Fri May 10 21:41 :52 EDT 2024 Systolic Blood Pressure 146.00 mm[Hg] MonMay 10 09:42:25 EDT 2024 Diastolic Blood Pressure 81.00 mm[Hg] MonMay 10 09:42:25 EDT 2024 Systolic Blood Pressure 146.00 mm[Hg] MonMay 10 09:42:25 EDT 2024 Diastolic Blood Pressure 81.00 mm[Hg] Fri May 10 09:42:25 EDT 2024 Heart Rate 79.00 /min Fri May 10 09:42 :25 EDT 2024 Heart Rate 79.00 /min Fri May 10 09:42 :25 EDT 2024 Systolic Blood Pressure 121.00 mm[Hg] Kelsy May 09 20:27:00 EDT 2024 Diastolic Blood Pressure 83.00 mm[Hg] Kelsy May 09 20:27:00 EDT 2024 Heart Rate 78.00 /min Kelsy May 09 20:27 :00 EDT 2024 Systolic Blood Pressure 129.00 mm[Hg] Kelsy May 09 09:12:27 EDT 2024 Diastolic Blood Pressure 77.00 mm[Hg] Kelsy May 09 09:12:27 EDT 2024 Systolic Blood Pressure 129.00 mm[Hg] Kelsy May 09 09:12:27 EDT 2024 Diastolic Blood Pressure 77.00 mm[Hg] Kelsy May 09 09:12:27 EDT 2024 Heart Rate 70.00 /min Kelsy May 09 09:12 :27 EDT 2024 Heart Rate 70.00 /min Kelsy May 09 09:12 :27 EDT 2024 Systolic Blood Pressure 129.00 mm[Hg] Kelsy May 09 08:11:58 EDT 2024 Diastolic Blood Pressure 77.00 mm[Hg] Kelsy May 09 08:11:58 EDT 2024 Heart Rate 70.00 /min Kelsy May 09 08:11 :58 EDT 2024 Pulse Oximetry 96.00 % Kelsy May 09 08:11 :58 EDT 2024 Systolic Blood Pressure 132.00 mm[Hg] Kelsy May 09 00:24:50 EDT 2024 Diastolic Blood Pressure 81.00 mm[Hg] Kelsy May 09 00:24:50 EDT 2024 Pulse Oximetry 95.00 % Kelsy May 09 00:24 :50 EDT 2024 Heart Rate 76.00 /min Kelsy May 09 00:24 :50 EDT 2024 Respiratory rate 18.00 /min Kelsy May 09 00:2 4:50 EDT 2024 Body temperature 97.50 [degF] Kelsy May 09 00:2 4:50 EDT 2024 Systolic Blood Pressure 132.00 mm[Hg] MonMay 08 20:20:52 EDT 2024 Diastolic Blood Pressure 81.00 mm[Hg] MonMay 08 20:20:52 EDT 2024 Heart Rate 78.00 /min MonMay 08 20:20 :52 EDT 2024 Systolic Blood Pressure 138.00 mm[Hg] MonMay 08 10:10:14 EDT 2024 Diastolic Blood Pressure 77.00 mm[Hg] MonMay 08 10:10:14 EDT 2024 Systolic Blood Pressure 138.00 mm[Hg] MonMay 08 10:10:14 EDT 2024 Diastolic Blood Pressure 77.00 mm[Hg] MonMay 08 10:10:14 EDT 2024 Heart Rate 75.00 /min MonMay 08 10:10 :14 EDT 2024 Heart Rate 75.00 /min MonMay 08 10:10 :14 EDT 2024 Systolic Blood Pressure 138.00 mm[Hg] MonMay 08 08:58:14 EDT 2024 Diastolic Blood Pressure 77.00 mm[Hg] MonMay 08 08:58:14 EDT 2024 Respiratory rate 18.00 /min MonMay 08 08:5 8:14 EDT 2024 Heart Rate 75.00 /min MonMay 08 08:58 :14 EDT 2024 Pulse Oximetry 96.00 % MonMay 08 08:58 :14 EDT 2024 Systolic Blood Pressure 106.00 mm[Hg] MonMay 07 20:23:35 EDT 2024 Diastolic Blood Pressure 60.00 mm[Hg] MonMay 07 20:23:35 EDT 2024 Heart Rate 77.00 /min MonMay 07 20:23 :35 EDT 2024 Systolic Blood Pressure 103.00 mm[Hg] MonMay 07 10:07:40 EDT 2024 Diastolic Blood Pressure 59.00 mm[Hg] MonMay 07 10:07:40 EDT 2024 Systolic Blood Pressure 103.00 mm[Hg] MonMay 07 10:07:40 EDT 2024 Diastolic Blood Pressure 59.00 mm[Hg] MonMay 07 10:07:40 EDT 2024 Heart Rate 92.00 /min MonMay 07 10:07 :40 EDT 2024 Heart Rate 92.00 /min MonMay 07 10:07 :40 EDT 2024 Systolic Blood Pressure 112.00 mm[Hg] MonMay 06 20:19:26 EDT 2024 Diastolic Blood Pressure 68.00 mm[Hg] MonMay 06 20:19:26 EDT 2024 Heart Rate 75.00 /min MonMay 06 20:19 :26 EDT 2024 Body weight 208.00 [lb_av] MonMay 06 14:43 :31 EDT 2024 Systolic Blood Pressure 104.00 mm[Hg] MonMay 06 09:58:55 EDT 2024 Diastolic Blood Pressure 62.00 mm[Hg] MonMay 06 09:58:55 EDT 2024 Systolic Blood Pressure 104.00 mm[Hg] MonMay 06 09:58:55 EDT 2024 Diastolic Blood Pressure 62.00 mm[Hg] MonMay 06 09:58:55 EDT 2024 Heart Rate 82.00 /min MonMay 06 09:58 :55 EDT 2024 Heart Rate 82.00 /min MonMay 06 09:58 :55 EDT 2024 Systolic Blood Pressure 103.00 mm[Hg] MonMay 05 20:24:25 EDT 2024 Diastolic Blood Pressure 66.00 mm[Hg] MonMay 05 20:24:25 EDT 2024 Heart Rate 76.00 /min MonMay 05 20:24 :25 EDT 2024 Systolic Blood Pressure 109.00 mm[Hg] MonMay 05 09:10:39 EDT 2024 Diastolic Blood Pressure 60.00 mm[Hg] Mon Mar 09:10:39 EDT 2024 Systolic Blood Pressure 109.00 mm[Hg] MonMay 05 09:10:39 EDT 2024 Diastolic Blood Pressure 60.00 mm[Hg] Sun Mar 30 09:10:39 EDT 2024 Heart Rate 78.00 /min Sun Mar 09:10 :39 EDT 2024 Heart Rate 78.00 /min Sun Mar 30 09:10 :39 EDT 5 Systolic Blood Pressure 109.00 mm[Hg] Sun Mar 30 08:37:53 EDT 5 Diastolic Blood Pressure 60.00 mm[Hg] Sun Mar 30 08:37:53 EDT 2024 Pulse Oximetry 95.00 % Sun Mar 30 08:37 :53 EDT 2024 Heart Rate 78.00 /min Sun Mar 30 08:37 :53 EDT 2024 Systolic Blood Pressure 116.00 mm[Hg] Sat Mar 29 22:33:53 EDT 2024 Diastolic Blood Pressure 76.00 mm[Hg] Sat Mar 29 22:33:53 EDT 2024 Heart Rate 73.00 /min Sat Mar 29 22:33 :53 EDT 2024 Systolic Blood Pressure 119.00 mm[Hg] Sat Mar 29 08:18:30 EDT 2024 Diastolic Blood Pressure 75.00 mm[Hg] Sat Mar 29 08:18:30 EDT 2024 Systolic Blood Pressure 119.00 mm[Hg] Sat Mar 29 08:18:30 EDT 2024 Diastolic Blood Pressure 75.00 mm[Hg] Sat Mar 29 08:18:30 EDT 5 Heart Rate 57.00 /min Sat Mar 29 08:18 :30 EDT 5 Heart Rate 57.00 /min Sat Mar 29 08:18 :30 EDT 2024 Systolic Blood Pressure 119.00 mm[Hg] Sat Mar 29 07:53:22 EDT 2024 Diastolic Blood Pressure 75.00 mm[Hg] Sat Mar 29 07:53:22 EDT 2024 Pulse Oximetry 94.00 % Sat Mar 29 07:53 :22 EDT 2024 Heart Rate 57.00 /min Sat Mar 29 07:53 :22 EDT 2024 Systolic Blood Pressure 104.00 mm[Hg] MonMay 03 21:32:30 EDT 2024 Diastolic Blood Pressure 63.00 mm[Hg] MonMay 03 21:32:30 EDT 2024 Heart Rate 82.00 /min MonMay 03 21:32 :30 EDT 2024 Systolic Blood Pressure 142.00 mm[Hg] MonMay 03 09:21:31 EDT 2024 Diastolic Blood Pressure 91.00 mm[Hg] MonMay 03 09:21:31 EDT 2024 Systolic Blood Pressure 142.00 mm[Hg] MonMay 03 09:21:31 EDT 2024 Diastolic Blood Pressure 91.00 mm[Hg] MonMay 03 09:21:31 EDT 2024 Heart Rate 77.00 /min MonMay 03 09:21 :31 EDT 2024 Heart Rate 77.00 /min MonMay 03 09:21 :31 EDT 2024 Systolic Blood Pressure 142.00 mm[Hg] MonMay 03 08:12:22 EDT 2024 Diastolic Blood Pressure 91.00 mm[Hg] MonMay 03 08:12:22 EDT 2024 Heart Rate 77.00 /min MonMay 03 08:12 :22 EDT 2024 Pulse Oximetry 97.00 % MonMay 03 08:12 :22 EDT 2024 Systolic Blood Pressure 126.00 mm[Hg] Mon 27 20:04:57 EDT 2024 Diastolic Blood Pressure 85.00 mm[Hg] MonMay 02 20:04:57 EDT 2024 Heart Rate 76.00 /min MonMay 02 20:04 :57 EDT 2024 Systolic Blood Pressure 135.00 mm[Hg] Mon 27 09:44:39 EDT 2024 Diastolic Blood Pressure 77.00 mm[Hg] Kelsyapr 27 09:44:39 EDT 2024 Systolic Blood Pressure 135.00 mm[Hg] Mon 27 09:44:39 EDT 2024 Diastolic Blood Pressure 77.00 mm[Hg] Kelsyapr 27 09:44:39 EDT 2024 Heart Rate 77.00 /min Mon 27 09:44 :39 EDT 2024 Heart Rate 77.00 /min Mon 27 09:44 :39 EDT 2024 Systolic Blood Pressure 126.00 mm[Hg] Mon 27 04:14:06 EDT 2024 Diastolic Blood Pressure 77.00 mm[Hg] Kelsyapr 27 04:14:06 EDT 2024 Heart Rate 88.00 /min Mon 27 04:14 :06 EDT 2024 Body temperature 97.80 [degF] MonMay 02 04:1 4:06 EDT 2024 Respiratory rate 18.00 /min MonMay 02 04:1 4:06 EDT 2024 Pulse Oximetry 96.00 % MonMay 02 04:14 :06 EDT 2024 Systolic Blood Pressure 126.00 mm[Hg] MonMay 01 20:11:39 EDT 2024 Diastolic Blood Pressure 77.00 mm[Hg] MonMay 01 20:11:39 EDT 2024 Heart Rate 68.00 /min MonMay 01 20:11 :39 EDT 2024 Systolic Blood Pressure 130.00 mm[Hg] MonMay 01 10:25:19 EDT 2024 Diastolic Blood Pressure 74.00 mm[Hg] MonMay 01 10:25:19 EDT 2024 Systolic Blood Pressure 130.00 mm[Hg] MonMay 01 10:25:19 EDT 2024 Diastolic Blood Pressure 74.00 mm[Hg] MonMay 01 10:25:19 EDT 2024 Heart Rate 85.00 /min MonMay 01 10:25 :19 EDT 2024 Heart Rate 85.00 /min MonMay 01 10:25 :19 EDT 2024 Systolic Blood Pressure 122.00 mm[Hg] MonApr 30 20:27:26 EDT 2024 Diastolic Blood Pressure 71.00 mm[Hg] MonApr 30 20:27:26 EDT 2024 Heart Rate 75.00 /min MonApr 30 20:27 :26 EDT 2024 Systolic Blood Pressure 116.00 mm[Hg] MonApr 30 09:17:05 EDT 2024 Diastolic Blood Pressure 69.00 mm[Hg] MonApr 30 09:17:05 EDT 2024 Systolic Blood Pressure 116.00 mm[Hg] MonApr 30 09:17:05 EDT 2024 Diastolic Blood Pressure 69.00 mm[Hg] MonApr 30 09:17:05 EDT 2024 Heart Rate 81.00 /min MonApr 30 09:17 :05 EDT 2024 Heart Rate 81.00 /min MonApr 30 09:17 :05 EDT 2024 Systolic Blood Pressure 116.00 mm[Hg] MonApr 30 07:33:33 EDT 2024 Diastolic Blood Pressure 69.00 mm[Hg] MonApr 30 07:33:33 EDT 2024 Pulse Oximetry 94.00 % MonApr 30 07:33 :33 EDT 2024 Heart Rate 81.00 /min MonApr 30 07:33 :33 EDT 2024 Systolic Blood Pressure 130.00 mm[Hg] MonApr 29 23:30:57 EDT 2024 Diastolic Blood Pressure 76.00 mm[Hg] MonApr 29 23:30:57 EDT 2024 Heart Rate 84.00 /min MonApr 29 23:30 :57 EDT 2024 Systolic Blood Pressure 147.00 mm[Hg] Mon Apr 24 10:10:07 EDT 2024 Diastolic Blood Pressure 96.00 mm[Hg] Mon Apr 24 10:10:07 EDT 2024 Systolic Blood Pressure 147.00 mm[Hg] Mon Apr 24 10:10:07 EDT 2024 Diastolic Blood Pressure 96.00 mm[Hg] Mon Apr 24 10:10:07 EDT 2024 Heart Rate 73.00 /min Mon Apr 24 10:10 :07 EDT 2024 Heart Rate 73.00 /min Mon Mar 24 10:10 :07 EDT 5 Systolic Blood Pressure 98.00 mm[Hg] Sun Mar 23 23:28:31 EDT 2024 Diastolic Blood Pressure 64.00 mm[Hg] Sun Mar 23 23:28:31 EDT 2024 Heart Rate 94.00 /min Sun Mar 23 23:28 :31 EDT 2024 Systolic Blood Pressure 133.00 mm[Hg] Sun Mar 23 09:47:46 EDT 2024 Diastolic Blood Pressure 87.00 mm[Hg] Sun Mar 23 09:47:46 EDT 2024 Systolic Blood Pressure 133.00 mm[Hg] Sun Mar 23 09:47:46 EDT 2024 Diastolic Blood Pressure 87.00 mm[Hg] Sun Mar 23 09:47:46 EDT 5 Heart Rate 85.00 /min Sun Mar 23 09:47 :46 EDT 2024 Heart Rate 85.00 /min Sun Mar 23 09:47 :46 EDT 2024 Systolic Blood Pressure 106.00 mm[Hg] Sat Mar 22 23:57:27 EDT 2024 Diastolic Blood Pressure 66.00 mm[Hg] Sat Mar 22 23:57:27 EDT 2024 Heart Rate 78.00 /min Sat Mar 22 23:57 :27 EDT 2024 Systolic Blood Pressure 134.00 mm[Hg] Sat Mar 22 09:47:57 EDT 2024 Diastolic Blood Pressure 86.00 mm[Hg] Sat Mar 22 09:47:57 EDT 2024 Systolic Blood Pressure 134.00 mm[Hg] Sat Mar 22 09:47:57 EDT 2024 Diastolic Blood Pressure 86.00 mm[Hg] Sat Mar 22 09:47:57 EDT 2024 Heart Rate 92.00 /min Sat Mar 22 09:47 :57 EDT 2024 Heart Rate 92.00 /min Sat Mar 22 09:47 :57 EDT 2024 Systolic Blood Pressure 102.00 mm[Hg] Mon 21 21:17:08 EDT 5 Diastolic Blood Pressure 60.00 mm[Hg] Mon 21 21:17:08 EDT 2024 Heart Rate 82.00 /min Mon 21 21:17 :08 EDT 2024 Systolic Blood Pressure 148.00 mm[Hg] Mon 21 09:00:18 EDT 2024 Diastolic Blood Pressure 72.00 mm[Hg] Mon 21 09:00:18 EDT 2024 Systolic Blood Pressure 148.00 mm[Hg] Mon 21 09:00:18 EDT 2024 Diastolic Blood Pressure 72.00 mm[Hg] Mon 21 09:00:18 EDT 2024 Heart Rate 90.00 /min Mon 21 09:00 :18 EDT 2024 Heart Rate 90.00 /min Mon 21 09:00 :18 EDT 2024 Systolic Blood Pressure 148.00 mm[Hg] Mon 21 08:29:38 EDT 2024 Diastolic Blood Pressure 72.00 mm[Hg] Mon 21 08:29:38 EDT 2024 Heart Rate 90.00 /min Mon 21 08:29 :38 EDT 2024 Systolic Blood Pressure 127.00 mm[Hg] Kelsyapr 20 20:31:23 EDT 2024 Diastolic Blood Pressure 78.00 mm[Hg] Kelsyapr 20 20:31:23 EDT 2024 Heart Rate 72.00 /min Kelsyapr 20 20:31 :23 EDT 2024 Systolic Blood Pressure 132.00 mm[Hg] Kelsyapr 20 09:51:23 EDT 2024 Diastolic Blood Pressure 84.00 mm[Hg] Kelsy[facility]r 20 09:51:23 EDT 2024 Systolic Blood Pressure 132.00 mm[Hg] Kelsyapr 20 09:51:23 EDT 2024 Diastolic Blood Pressure 84.00 mm[Hg] Kelsy Mar 20 09:51:23 EDT 2024 Heart Rate 79.00 /min Kelsy Mar 20 09:51 :23 EDT 2024 Heart Rate 79.00 /min Kelsyapr 20 09:51 :23 EDT 2024 Systolic Blood Pressure 132.00 mm[Hg] Kelsyapr 20 07:38:19 EDT 2024 Diastolic Blood Pressure 84.00 mm[Hg] Kelsyapr 20 07:38:19 EDT 2024 Heart Rate 79.00 /min Mon 20 07:38 :19 EDT 2024 Pulse Oximetry 98.00 % Mon 20 07:38 :19 EDT 2024 Systolic Blood Pressure 85.00 mm[Hg] Mon 19 22:54:42 EDT 2024 Diastolic Blood Pressure 57.00 mm[Hg] Mon 19 22:54:42 EDT 2024 Heart Rate 84.00 /min Mon 19 22:54 :42 EDT 2024 Body temperature 98.50 [degF] Mon 19 22:5 4:42 EDT 2024 Respiratory rate 18.00 /min MonApr 24 22:5 4:42 EDT 2024 Pulse Oximetry 96.00 % Mon 19 22:54 :42 EDT 2024 Systolic Blood Pressure 85.00 mm[Hg] Mon 19 20:31:23 EDT 2024 Diastolic Blood Pressure 57.00 mm[Hg] Mon 19 20:31:23 EDT 2024 Heart Rate 84.00 /min Mon 19 20:31 :23 EDT 2024 Systolic Blood Pressure 107.00 mm[Hg] Mon 19 16:00:13 EDT 2024 Diastolic Blood Pressure 69.00 mm[Hg] MonApr 24 16:00:13 EDT 2024 Heart Rate 76.00 /min MonApr 24 16:00 :13 EDT 2024 Pulse Oximetry 98.00 % MonApr 24 16:00 :13 EDT 2024 Respiratory rate 17.00 /min MonApr 24 16:0 0:13 EDT 2024 Body temperature 98.20 [degF] Mon 19 16:0 0:13 EDT 2024 Systolic Blood Pressure 128.00 mm[Hg] Mon 19 11:24:15 EDT 2024 Diastolic Blood Pressure 64.00 mm[Hg] Mon 19 11:24:15 EDT 2024 Systolic Blood Pressure 128.00 mm[Hg] Mon 19 11:24:15 EDT 2024 Diastolic Blood Pressure 64.00 mm[Hg] Mon 19 11:24:15 EDT 2024 Heart Rate 62.00 /min Mon 19 11:24 :15 EDT 2024 Heart Rate 62.00 /min Mon 19 11:24 :15 EDT 2024 Systolic Blood Pressure 130.00 mm[Hg] Mon 18 22:48:27 EDT 2024 Diastolic Blood Pressure 68.00 mm[Hg] Mon 18 22:48:27 EDT 5 Heart Rate 76.00 /min Mon 18 22:48 :27 EDT 2024 Systolic Blood Pressure 140.00 mm[Hg] Mon 18 08:42:10 EDT 2024 Diastolic Blood Pressure 69.00 mm[Hg] Mon 18 08:42:10 EDT 2024 Systolic Blood Pressure 140.00 mm[Hg] Mon 18 08:42:10 EDT 2024 Diastolic Blood Pressure 69.00 mm[Hg] Mon 18 08:42:10 EDT 2024 Heart Rate 88.00 /min Mon 18 08:42 :10 EDT 2024 Heart Rate 88.00 /min Mon 18 08:42 :10 EDT 2024 Systolic Blood Pressure 140.00 mm[Hg] Mon 18 07:57:17 EDT 2024 Diastolic Blood Pressure 69.00 mm[Hg] Mon 18 07:57:17 EDT 2024 Heart Rate 88.00 /min Mon 18 07:57 :17 EDT 2024 Systolic Blood Pressure 98.00 mm[Hg] Mon 17 20:24:38 EDT 2024 Diastolic Blood Pressure 68.00 mm[Hg] Mon 17 20:24:38 EDT 2024 Heart Rate 72.00 /min Mon 17 20:24 :38 EDT 2024 Body weight 209.20 [lb_av] Mon 17 14:09 :00 EDT 2024 Systolic Blood Pressure 99.00 mm[Hg] Mon 17 09:48:51 EDT 2024 Diastolic Blood Pressure 61.00 mm[Hg] Mon 17 09:48:51 EDT 2024 Systolic Blood Pressure 99.00 mm[Hg] Mon 17 09:48:51 EDT 2024 Diastolic Blood Pressure 61.00 mm[Hg] Mon 17 09:48:51 EDT 2024 Heart Rate 54.00 /min Mon 17 09:48 :51 EDT 2024 Heart Rate 54.00 /min Mon 17 09:48 :51 EDT 2024 Systolic Blood Pressure 101.00 mm[Hg] Mon 16 20:46:45 EDT 2024 Diastolic Blood Pressure 56.00 mm[Hg] Mon 16 20:46:45 EDT 2024 Heart Rate 81.00 /min Sun Mar 16 20:46 :45 EDT 2024 Systolic Blood Pressure 98.00 mm[Hg] Sun Mar 16 11:24:51 EDT 2024 Diastolic Blood Pressure 58.00 mm[Hg] Sun Mar 16 11:24:51 EDT 2024 Systolic Blood Pressure 98.00 mm[Hg] Sun Mar 16 11:24:51 EDT 2024 Diastolic Blood Pressure 58.00 mm[Hg] Sun Mar 16 11:24:51 EDT 2024 Heart Rate 90.00 /min Sun Mar 16 11:24 :51 EDT 2024 Heart Rate 90.00 /min Sun Mar 16 11:24 :51 EDT 2024 Systolic Blood Pressure 105.00 mm[Hg] Sun Mar 16 00:20:21 EDT 2024 Diastolic Blood Pressure 59.00 mm[Hg] Sun Mar 16 00:20:21 EDT 2024 Heart Rate 84.00 /min Sun Mar 16 00:20 :21 EDT 2024 Systolic Blood Pressure 117.00 mm[Hg] Sat Mar 15 09:23:30 EDT 2024 Diastolic Blood Pressure 70.00 mm[Hg] Sat Mar 15 09:23:30 EDT 2024 Systolic Blood Pressure 117.00 mm[Hg] Sat Mar 15 09:23:30 EDT 2024 Diastolic Blood Pressure 70.00 mm[Hg] Sat Mar 15 09:23:30 EDT 2024 Heart Rate 81.00 /min Sat Mar 15 09:23 :30 EDT 2024 Heart Rate 81.00 /min Sat Mar 15 09:23 :30 EDT 2024 Systolic Blood Pressure 117.00 mm[Hg] Sat Mar 15 07:52:37 EDT 2024 Diastolic Blood Pressure 70.00 mm[Hg] Sat Mar 15 07:52:37 EDT 2024 Heart Rate 81.00 /min Sat Mar 15 07:52 :37 EDT 2024 Pulse Oximetry 96.00 % Sat Mar 15 07:52 :37 EDT 2024 Systolic Blood Pressure 100.00 mm[Hg] Fri Mar 14 23:48:36 EDT 2024 Diastolic Blood Pressure 64.00 mm[Hg] Fri Mar 14 23:48:36 EDT 2024 Heart Rate 86.00 /min Fri Mar 14 23:48 :36 EDT 2024 Systolic Blood Pressure 114.00 mm[Hg] Mon 14 10:07:32 EDT 2024 Diastolic Blood Pressure 64.00 mm[Hg] Fri Mar 14 10:07:32 EDT 2024 Systolic Blood Pressure 114.00 mm[Hg] Mon 14 10:07:32 EDT 2024 Diastolic Blood Pressure 64.00 mm[Hg] Mon 14 10:07:32 EDT 2024 Heart Rate 96.00 /min Mon 14 10:07 :32 EDT 2024 Heart Rate 96.00 /min Mon 14 10:07 :32 EDT 2024 Systolic Blood Pressure 126.00 mm[Hg] Eklsyapr 13 20:25:47 EDT 2024 Diastolic Blood Pressure 74.00 mm[Hg] Kelsy Apr 13 20:25:47 EDT 2024 Heart Rate 82.00 /min Kelsyapr 13 20:25 :47 EDT 2024 Systolic Blood Pressure 131.00 mm[Hg] Kelsyapr 13 09:34:54 EDT 2024 Diastolic Blood Pressure 76.00 mm[Hg] Kelsyapr 13 09:34:54 EDT 2024 Systolic Blood Pressure 131.00 mm[Hg] Kelsyapr 13 09:34:54 EDT 2024 Diastolic Blood Pressure 76.00 mm[Hg] Kelsyapr 13 09:34:54 EDT 2024 Heart Rate 84.00 /min Kelsyapr 13 09:34 :54 EDT 2024 Heart Rate 84.00 /min Kelsyapr 13 09:34 :54 EDT 2024 Systolic Blood Pressure 131.00 mm[Hg] Kelsyapr 13 07:57:52 EDT 2024 Diastolic Blood Pressure 76.00 mm[Hg] Kelsyapr 13 07:57:52 EDT 2024 Pulse Oximetry 98.00 % Kelsyapr 13 07:57 :52 EDT 2024 Heart Rate 84.00 /min Kelsyapr 13 07:57 :52 EDT 2024 Systolic Blood Pressure 88.00 mm[Hg] Kelsyapr 13 03:34:36 EDT 2024 Diastolic Blood Pressure 49.00 mm[Hg] Kelsyapr 13 03:34:36 EDT 2024 Heart Rate 78.00 /min Kelsyapr 13 03:34 :36 EDT 2024 Body temperature 97.50 [degF] Kelsyapr 13 03:3 4:36 EDT 2024 Respiratory rate 18.00 /min Kelsyapr 13 03:3 4:36 EDT 2024 Pulse Oximetry 96.00 % Mon 13 03:34 :36 EDT 5 Systolic Blood Pressure 88.00 mm[Hg] Mon 12 21:13:41 EDT 5 Diastolic Blood Pressure 49.00 mm[Hg] Mon 12 21:13:41 EDT 2024 Heart Rate 85.00 /min Mon 12 21:13 :41 EDT 5 Systolic Blood Pressure 98.00 mm[Hg] Mon 12 17:42:18 EDT 2024 Diastolic Blood Pressure 57.00 mm[Hg] Mon 12 17:42:18 EDT 2024 Heart Rate 84.00 /min Mon 12 17:42 :18 EDT 2024 Pulse Oximetry 94.00 % Mon 12 17:42 :18 EDT 2024 Systolic Blood Pressure 131.00 mm[Hg] Mon 12 09:34:20 EDT 2024 Diastolic Blood Pressure 80.00 mm[Hg] Mon 12 09:34:20 EDT 2024 Systolic Blood Pressure 131.00 mm[Hg] Mon 12 09:34:20 EDT 2024 Diastolic Blood Pressure 80.00 mm[Hg] Mon 12 09:34:20 EDT 5 Heart Rate 82.00 /min Mon 12 09:34 :20 EDT 2024 Heart Rate 82.00 /min Mon 12 09:34 :20 EDT 2024 Systolic Blood Pressure 131.00 mm[Hg] Mon 12 08:12:01 EDT 2024 Diastolic Blood Pressure 80.00 mm[Hg] Mon 12 08:12:01 EDT 2024 Heart Rate 82.00 /min Mon 12 08:12 :01 EDT 2024 Systolic Blood Pressure 135.00 mm[Hg] Mon 11 20:12:13 EDT 2024 Diastolic Blood Pressure 87.00 mm[Hg] Mon 11 20:12:13 EDT 5 Heart Rate 78.00 /min Mon 11 20:12 :13 EDT 2024 Systolic Blood Pressure 129.00 mm[Hg] Mon 11 09:55:08 EDT 2024 Diastolic Blood Pressure 77.00 mm[Hg] Mon 11 09:55:08 EDT 2024 Systolic Blood Pressure 129.00 mm[Hg] Mon 11 09:55:08 EDT 2024 Diastolic Blood Pressure 77.00 mm[Hg] Mon 11 09:55:08 EDT 2025 Heart Rate 64.00 /min e Apr 16 09:55 :08 EDT 2024 Heart Rate 64.00 /min MonApr 16 09:55 :08 EDT 2024 Systolic Blood Pressure 122.00 mm[Hg] Mon Mar 10 21:34:35 EDT 2024 Diastolic Blood Pressure 61.00 mm[Hg] Mon Mar 10 21:34:35 EDT 2024 Heart Rate 83.00 /min Mon 10 21:34 :35 EDT 2024 Body weight 196.80 [lb_av] Mon Mar 10 14:12 :20 EDT 2025 Systolic Blood Pressure 132.00 mm[Hg] Mon Mar 10 09:45:56 EDT 2024 Diastolic Blood Pressure 80.00 mm[Hg] Mon 10 09:45:56 EDT 2024 Systolic Blood Pressure 132.00 mm[Hg] Mon 10 09:45:56 EDT 2024 Diastolic Blood Pressure 80.00 mm[Hg] MonApr 15 09:45:56 EDT 2024 Heart Rate 93.00 /min Mon 10 09:45 :56 EDT 2024 Heart Rate 93.00 /min MonApr 15 09:45 :56 EDT 2024 Systolic Blood Pressure 132.00 mm[Hg] MonApr 15 09:01:48 EDT 2024 Diastolic Blood Pressure 80.00 mm[Hg] MonApr 15 09:01:48 EDT 2024 Heart Rate 93.00 /min MonApr 15 09:01 :48 EDT 2024 Systolic Blood Pressure 103.00 mm[Hg] Sun Mar 23:02:13 EDT 2024 Diastolic Blood Pressure 59.00 mm[Hg] Sun Apr 14 23:02:13 EDT 2024 Heart Rate 85.00 /min Sun Mar 23:02 :13 EDT 2024 Systolic Blood Pressure 120.00 mm[Hg] Sun Mar 09:33:01 EDT 2024 Diastolic Blood Pressure 71.00 mm[Hg] Sun Mar 09:33:01 EDT 2024 Systolic Blood Pressure 120.00 mm[Hg] Sun Mar 09:33:01 EDT 2024 Diastolic Blood Pressure 71.00 mm[Hg] Sun Mar 09:33:01 EDT 2024 Heart Rate 88.00 /min Sun Mar 09:33 :01 EDT 2024 Heart Rate 88.00 /min Sun Mar 09 09:33 :01 EDT 2024 Systolic Blood Pressure 120.00 mm[Hg] Sun Mar 09 07:49:28 EDT 2024 Diastolic Blood Pressure 71.00 mm[Hg] Sun Mar 07:49:28 EDT 2024 Pulse Oximetry 97.00 % Sun Mar 07:49 :28 EDT 2024 Heart Rate 88.00 /min Sun Mar 07:49 :28 EDT 2024 Systolic Blood Pressure 100.00 mm[Hg] Sat Mar 08 23:27:00 EST 2024 Diastolic Blood Pressure 68.00 mm[Hg] Sat Mar 08 23:27:00 EST 2024 Heart Rate 56.00 /min Sat Mar 08 23:27 :00 EST 2024 Systolic Blood Pressure 119.00 mm[Hg] Sat Mar 08 09:36:40 EST 2024 Diastolic Blood Pressure 73.00 mm[Hg] Sat Mar 08 09:36:40 EST 2024 Systolic Blood Pressure 119.00 mm[Hg] Sat Mar 08 09:36:40 EST 2024 Diastolic Blood Pressure 73.00 mm[Hg] Sat Mar 08 09:36:40 EST 2024 Heart Rate 65.00 /min Sat Mar 08 09:36 :40 EST 2024 Heart Rate 65.00 /min Sat Mar 08 09:36 :40 EST 2024 Systolic Blood Pressure 101.00 mm[Hg] Mon 07 23:43:28 EST 2024 Diastolic Blood Pressure 58.00 mm[Hg] Mon 07 23:43:28 EST 2024 Heart Rate 70.00 /min Mon 07 23:43 :28 EST 2024 Systolic Blood Pressure 115.00 mm[Hg] Mon 07 10:26:43 EST 2024 Diastolic Blood Pressure 74.00 mm[Hg] Mon 07 10:26:43 EST 2024 Systolic Blood Pressure 115.00 mm[Hg] Mon 07 10:26:43 EST 2024 Diastolic Blood Pressure 74.00 mm[Hg] Mon 07 10:26:43 EST 2024 Heart Rate 86.00 /min Mon 07 10:26 :43 EST 2024 Heart Rate 86.00 /min Mon 07 10:26 :43 EST 2024 Systolic Blood Pressure 115.00 mm[Hg] Mon 07 08:02:43 EST 2024 Diastolic Blood Pressure 74.00 mm[Hg] Mon 07 08:02:43 EST 2024 Heart Rate 86.00 /min Fri Mar 07 08:02 :43 EST 2024 Pulse Oximetry 97.00 % MonApr 12 08:02 :43 EST 2024 Systolic Blood Pressure 126.00 mm[Hg] MonApr 11 20:56:56 EST 2024 Diastolic Blood Pressure 72.00 mm[Hg] MonApr 11 20:56:56 EST 2024 Heart Rate 88.00 /min MonApr 11 20:56 :56 EST 2024 Systolic Blood Pressure 117.00 mm[Hg] MonApr 11 11:45:28 EST 2024 Diastolic Blood Pressure 64.00 mm[Hg] MonApr 11 11:45:28 EST 2024 Systolic Blood Pressure 117.00 mm[Hg] MonApr 11 11:45:28 EST 2024 Diastolic Blood Pressure 64.00 mm[Hg] MonApr 11 11:45:28 EST 2024 Heart Rate 87.00 /min MonApr 11 11:45 :28 EST 2024 Heart Rate 87.00 /min MonApr 11 11:45 :28 EST 2024 Systolic Blood Pressure 135.00 mm[Hg] MonApr 10 22:17:51 EST 2024 Diastolic Blood Pressure 78.00 mm[Hg] MonApr 10 22:17:51 EST 2024 Pulse Oximetry 95.00 % MonApr 10 22:17 :51 EST 2024 Heart Rate 78.00 /min MonApr 10 22:17 :51 EST 2024 Respiratory rate 16.00 /min MonApr 10 22:1 7:51 EST 2024 Body temperature 97.50 [degF] MonApr 10 22:1 7:51 EST 2024 Systolic Blood Pressure 135.00 mm[Hg] MonApr 10 21:06:58 EST 2024 Diastolic Blood Pressure 78.00 mm[Hg] MonApr 10 21:06:58 EST 2024 Heart Rate 86.00 /min MonApr 10 21:06 :58 EST 2024 Systolic Blood Pressure 139.00 mm[Hg] MonApr 10 09:27:03 EST 2024 Diastolic Blood Pressure 92.00 mm[Hg] MonApr 10 09:27:03 EST 2024 Systolic Blood Pressure 139.00 mm[Hg] MonApr 10 09:27:03 EST 2024 Diastolic Blood Pressure 92.00 mm[Hg] MonApr 10 09:27:03 EST 2024 Heart Rate 79.00 /min MonApr 10 09:27 :03 EST 2024 Heart Rate 79.00 /min MonApr 10 09:27 :03 EST 2024 Systolic Blood Pressure 139.00 mm[Hg] MonApr 10 08:48:17 EST 2024 Diastolic Blood Pressure 92.00 mm[Hg] MonApr 10 08:48:17 EST 2024 Heart Rate 79.00 /min MonApr 10 08:48 :17 EST 2024 Pulse Oximetry 95.00 % MonApr 10 08:48 :17 EST 2024 Systolic Blood Pressure 111.00 mm[Hg] MonApr 09 21:15:26 EST 2024 Diastolic Blood Pressure 55.00 mm[Hg] MonApr 09 21:15:26 EST 2024 Heart Rate 61.00 /min MonApr 09 21:15 :26 EST 2024 Systolic Blood Pressure 132.00 mm[Hg] MonApr 09 10:34:40 EST 2024 Diastolic Blood Pressure 80.00 mm[Hg] MonApr 09 10:34:40 EST 2024 Systolic Blood Pressure 132.00 mm[Hg] MonApr 09 10:34:40 EST 2024 Diastolic Blood Pressure 80.00 mm[Hg] MonApr 09 10:34:40 EST 2024 Heart Rate 84.00 /min MonApr 09 10:34 :40 EST 2024 Heart Rate 84.00 /min MonApr 09 10:34 :40 EST 2024 Systolic Blood Pressure 126.00 mm[Hg] MonApr 08 20:27:08 EST 2024 Diastolic Blood Pressure 73.00 mm[Hg] MonApr 08 20:27:08 EST 2024 Heart Rate 75.00 /min MonApr 08 20:27 :08 EST 2024 Body weight 203.60 [lb_av] MonApr 08 17:40 :19 EST 2024 Systolic Blood Pressure 120.00 mm[Hg] MonApr 08 09:11:49 EST 2024 Diastolic Blood Pressure 66.00 mm[Hg] MonApr 08 09:11:49 EST 2024 Systolic Blood Pressure 120.00 mm[Hg] MonApr 08 09:11:49 EST 2024 Diastolic Blood Pressure 66.00 mm[Hg] MonApr 08 09:11:49 EST 2024 Heart Rate 83.00 /min MonApr 08 09:11 :49 EST 2024 Heart Rate 83.00 /min MonApr 08 09:11 :49 EST 2024 Systolic Blood Pressure 120.00 mm[Hg] MonApr 08 07:49:11 EST 2024 Diastolic Blood Pressure 66.00 mm[Hg] Mon Mar 07:49:11 EST 2024 Pulse Oximetry 96.00 % Mon Mar 07:49 :11 EST 2024 Heart Rate 83.00 /min Mon Mar 07:49 :11 EST 2024 Systolic Blood Pressure 115.00 mm[Hg] Sun Mar 23:23:20 EST 2024 Diastolic Blood Pressure 78.00 mm[Hg] Sun Mar 23:23:20 EST 2024 Heart Rate 64.00 /min Sun Mar 23:23 :20 EST 2024 Systolic Blood Pressure 128.00 mm[Hg] Sun Mar 09:55:49 EST 2024 Diastolic Blood Pressure 76.00 mm[Hg] Sun Mar 09:55:49 EST 2024 Systolic Blood Pressure 128.00 mm[Hg] Sun Mar 09:55:49 EST 2024 Diastolic Blood Pressure 76.00 mm[Hg] Sun Mar 09:55:49 EST 2024 Heart Rate 95.00 /min Sun Mar 09:55 :49 EST 2024 Heart Rate 95.00 /min Sun Mar 09:55 :49 EST 2024 Systolic Blood Pressure 128.00 mm[Hg] Sun Mar 08:32:53 EST 2024 Diastolic Blood Pressure 76.00 mm[Hg] Sun Mar 02 08:32:53 EST 2024 Heart Rate 95.00 /min Sun Mar 08:32 :53 EST 2024 Pulse Oximetry 97.00 % Sun Mar 08:32 :53 EST 2024 Systolic Blood Pressure 100.00 mm[Hg] Sat Mar 23:01:52 EST 2024 Diastolic Blood Pressure 86.00 mm[Hg] Sat Mar 23:01:52 EST 2024 Heart Rate 85.00 /min Sat Mar 23:01 :52 EST 2024 Systolic Blood Pressure 136.00 mm[Hg] Sat Mar 01 09:43:23 EST 2024 Diastolic Blood Pressure 82.00 mm[Hg] Sat Mar 01 09:43:23 EST 2024 Systolic Blood Pressure 136.00 mm[Hg] Sat Mar 01 09:43:23 EST 2024 Diastolic Blood Pressure 82.00 mm[Hg] Sat Mar 01 09:43:23 EST 2024 Heart Rate 78.00 /min Sat Mar 01 09:43 :23 EST 2024 Heart Rate 78.00 /min Sat Mar 09:43 :23 EST 2025 Systolic Blood Pressure 123.00 mm[Hg] MonApr 06 07:27:15 EST 2024 Diastolic Blood Pressure 72.00 mm[Hg] MonApr 06 07:27:15 EST 2024 Heart Rate 75.00 /min MonApr 06 07:27 :15 EST 2024 Pulse Oximetry 97.00 % [facility] Apr 06 07:27 :15 EST 5 Systolic Blood Pressure 104.00 mm[Hg] Fri Feb 28 20:28:18 EST 2024 Diastolic Blood Pressure 59.00 mm[Hg] Fri Feb 28 20:28:18 EST 5 Heart Rate 62.00 /min Fri Feb 28 20:28 :18 EST 2024 Systolic Blood Pressure 174.00 mm[Hg] Fri Feb 28 10:11:10 EST 2024 Diastolic Blood Pressure 92.00 mm[Hg] Fri Feb 28 10:11:10 EST 2024 Systolic Blood Pressure 174.00 mm[Hg] Fri Feb 28 10:11:10 EST 2024 Diastolic Blood Pressure 92.00 mm[Hg] Fri Feb 28 10:11:10 EST 2024 Heart Rate 100.00 /min Fri Feb 28 10:11 :10 EST 2024 Heart Rate 100.00 /min Fri Feb 28 10:11 :10 EST 2024 Systolic Blood Pressure 121.00 mm[Hg] Fri Feb 28 08:07:43 EST 2024 Diastolic Blood Pressure 68.00 mm[Hg] Fri Feb 28 08:07:43 EST 2024 Pulse Oximetry 97.00 % Mon Feb 28 08:07 :43 EST 5 Heart Rate 76.00 /min Fri Feb 28 08:07 :43 EST 2024 Systolic Blood Pressure 124.00 mm[Hg] Kelsy Feb 27 20:50:30 EST 5 Diastolic Blood Pressure 68.00 mm[Hg] Kelsy Feb 27 20:50:30 EST 5 Heart Rate 75.00 /min Kelsy Feb 27 20:50 :30 EST 5 Systolic Blood Pressure 111.00 mm[Hg] Kelsy Feb 27 09:14:27 EST 5 Diastolic Blood Pressure 64.00 mm[Hg] Kelsy Feb 27 09:14:27 EST 5 Systolic Blood Pressure 111.00 mm[Hg] Kelsy Feb 27 09:14:27 EST 5 Diastolic Blood Pressure 64.00 mm[Hg] Kelsy Feb 27 09:14:27 EST 5 Heart Rate 91.00 /min Kelsy Feb 27 09:14 :27 EST 5 Heart Rate 91.00 /min Kelsy Feb 27 09:14 :27 EST 5 Systolic Blood Pressure 111.00 mm[Hg] Kelsy Feb 27 08:45:52 EST 2025 Diastolic Blood Pressure 64.00 mm[Hg] Kelsy Feb 27 08:45:52 EST 2025 Heart Rate 91.00 /min Kelsy Feb 27 08:45 :52 EST 2025 Systolic Blood Pressure 90.00 mm[Hg] Wed Feb 26 20:47:51 EST 2025 Diastolic Blood Pressure 59.00 mm[Hg] Wed Feb 26 20:47:51 EST 2025 Systolic Blood Pressure 90.00 mm[Hg] Wed Feb 26 20:47:51 EST 5 Diastolic Blood Pressure 59.00 mm[Hg] Wed Feb 26 20:47:51 EST 5 Heart Rate 65.00 /min Wed Feb 26 20:47 :51 EST 2024 Pulse Oximetry 78.00 % Wed Feb 26 20:47 :51 EST 5 Heart Rate 65.00 /min Wed Feb 26 20:47 :51 EST 5 Respiratory rate 18.00 /min Wed Feb 26 20:4 7:51 EST 5 Body temperature 97.70 [degF] Wed Feb 26 20:4 7:51 EST 5 Systolic Blood Pressure 90.00 mm[Hg] Wed Feb 26 15:39:29 EST 2025 Diastolic Blood Pressure 59.00 mm[Hg] Wed Feb 26 15:39:29 EST 2025 Respiratory rate 18.00 /min Wed Feb 26 15:3 9:29 EST 5 Pulse Oximetry 98.00 % Wed Feb 26 15:39 :29 EST 2025 Heart Rate 88.00 /min Wed Feb 26 15:39 :29 EST 5 Body temperature 98.00 [degF] Wed Feb 26 15:3 9:29 EST 2025 Systolic Blood Pressure 124.00 mm[Hg] Wed Feb 26 09:24:35 EST 2025 Diastolic Blood Pressure 89.00 mm[Hg] Wed Feb 26 09:24:35 EST 2025 Systolic Blood Pressure 124.00 mm[Hg] Wed Feb 26 09:24:35 EST 2025 Diastolic Blood Pressure 89.00 mm[Hg] Wed Feb 26 09:24:35 EST 2024 Heart Rate 82.00 /min Wed Feb 26 09:24 :35 EST 5 Heart Rate 82.00 /min Wed Feb 26 09:24 :35 EST 5 Systolic Blood Pressure 124.00 mm[Hg] Wed Feb 26 08:27:25 EST 5 Diastolic Blood Pressure 89.00 mm[Hg] Wed Feb 26 08:27:25 EST 2024 Pulse Oximetry 96.00 % Wed Feb 26 08:27 :25 EST 5 Heart Rate 82.00 /min Wed Feb 26 08:27 :25 EST 5 Systolic Blood Pressure 136.00 mm[Hg] e Feb 25 20:49:30 EST 2024 Diastolic Blood Pressure 74.00 mm[Hg] e Feb 25 20:49:30 EST 5 Heart Rate 78.00 /min e Feb 20:49 :30 EST 5 Systolic Blood Pressure 125.00 mm[Hg] e Feb 25 10:07:25 EST 2024 Diastolic Blood Pressure 81.00 mm[Hg] e Feb 25 10:07:25 EST 5 Systolic Blood Pressure 125.00 mm[Hg] e Feb 25 10:07:25 EST 5 Diastolic Blood Pressure 81.00 mm[Hg] e Feb 25 10:07:25 EST 2024 Heart Rate 90.00 /min e Feb 25 10:07 :25 EST 5 Heart Rate 90.00 /min e Feb 25 10:07 :25 EST 5 Systolic Blood Pressure 125.00 mm[Hg] e Feb 25 07:49:22 EST 5 Diastolic Blood Pressure 81.00 mm[Hg] e Feb 25 07:49:22 EST 5 Heart Rate 90.00 /min e Feb 25 07:49 :22 EST 2024 Pulse Oximetry 98.00 % e Feb 25 07:49 :22 EST 2024 Systolic Blood Pressure 132.00 mm[Hg] Mon Feb 24 20:55:36 EST 2024 Diastolic Blood Pressure 73.00 mm[Hg] Mon Feb 24 20:55:36 EST 5 Heart Rate 78.00 /min Mon Feb 24 20:55 :36 EST 2024 Body weight 194.60 [lb_av] Mon Feb 24 15:54 :41 EST 2024 Body weight 194.60 [lb_av] Mon b 24 15:42 :32 EST 2024 Systolic Blood Pressure 122.00 mm[Hg] Mon Feb 24 09:53:56 EST 2024 Diastolic Blood Pressure 74.00 mm[Hg] Mon Feb 24 09:53:56 EST 2024 Systolic Blood Pressure 122.00 mm[Hg] Mon Feb 24 09:53:56 EST 2024 Diastolic Blood Pressure 74.00 mm[Hg] Mon Feb 24 09:53:56 EST 2024 Heart Rate 84.00 /min Mon Feb 09:53 :56 EST 2024 Heart Rate 84.00 /min Mon Feb 24 09:53 :56 EST 2024 Systolic Blood Pressure 122.00 mm[Hg] Mon Feb 24 08:04:28 EST 2024 Diastolic Blood Pressure 74.00 mm[Hg] Mon Feb 08:04:28 EST 2024 Heart Rate 84.00 /min Mon Feb 24 08:04 :28 EST 2024 Systolic Blood Pressure 109.00 mm[Hg] Sun Feb 20:02:32 EST 2024 Diastolic Blood Pressure 66.00 mm[Hg] Sun Feb 20:02:32 EST 2024 Heart Rate 56.00 /min Sun Feb 20:02 :32 EST 2024 Systolic Blood Pressure 146.00 mm[Hg] Sun Feb 09:30:40 EST 2024 Diastolic Blood Pressure 78.00 mm[Hg] Sun Feb 09:30:40 EST 2024 Systolic Blood Pressure 146.00 mm[Hg] Sun Feb 09:30:40 EST 2024 Diastolic Blood Pressure 78.00 mm[Hg] Sun Feb 09:30:40 EST 2024 Heart Rate 74.00 /min Sun Feb 09:30 :40 EST 2024 Heart Rate 74.00 /min Sun Feb 09:30 :40 EST 2024 Systolic Blood Pressure 132.00 mm[Hg] Sun Feb 07:49:42 EST 2024 Diastolic Blood Pressure 76.00 mm[Hg] Sun Feb 07:49:42 EST 2024 Heart Rate 90.00 /min Sun Feb 07:49 :42 EST 2024 Pulse Oximetry 100.00 % Sun Feb 07:49 :42 EST 2024 Systolic Blood Pressure 113.00 mm[Hg] Sat Feb 22 21:02:19 EST 2024 Diastolic Blood Pressure 57.00 mm[Hg] Sat Feb 22 21:02:19 EST 5 Heart Rate 85.00 /min Sat Feb 22 21:02 :19 EST 2024 Systolic Blood Pressure 116.00 mm[Hg] Sat Feb 22 09:16:09 EST 5 Diastolic Blood Pressure 74.00 mm[Hg] Sat Feb 22 09:16:09 EST 2024 Systolic Blood Pressure 116.00 mm[Hg] Sat Feb 22 09:16:09 EST 5 Diastolic Blood Pressure 74.00 mm[Hg] Sat Feb 22 09:16:09 EST 2024 Heart Rate 78.00 /min Sat Feb 22 09:16 :09 EST 5 Heart Rate 78.00 /min Sat Feb 22 09:16 :09 EST 2024 Systolic Blood Pressure 112.00 mm[Hg] Sat Feb 22 08:09:05 EST 2024 Diastolic Blood Pressure 71.00 mm[Hg] Sat Feb 22 08:09:05 EST 2024 Heart Rate 80.00 /min Sat Feb 22 08:09 :05 EST 2024 Systolic Blood Pressure 94.00 mm[Hg] Fri Feb 21 20:09:07 EST 5 Diastolic Blood Pressure 59.00 mm[Hg] Fri Feb 21 20:09:07 EST 2024 Heart Rate 89.00 /min Fri Feb 21 20:09 :07 EST 2024 Systolic Blood Pressure 108.00 mm[Hg] Fri Feb 21 09:00:50 EST 5 Diastolic Blood Pressure 81.00 mm[Hg] Fri Feb 21 09:00:50 EST 2024 Systolic Blood Pressure 108.00 mm[Hg] Mon Feb 21 09:00:50 EST 5 Diastolic Blood Pressure 81.00 mm[Hg] Fri Feb 21 09:00:50 EST 2024 Heart Rate 84.00 /min Fri Feb 21 09:00 :50 EST 5 Heart Rate 84.00 /min Fri Feb 21 09:00 :50 EST 5 Systolic Blood Pressure 108.00 mm[Hg] Fri Feb 21 08:29:08 EST 5 Diastolic Blood Pressure 81.00 mm[Hg] Fri Feb 21 08:29:08 EST 5 Heart Rate 84.00 /min Fri Feb 21 08:29 :08 EST 5 Systolic Blood Pressure 135.00 mm[Hg] Kelsy Feb 20 20:43:53 EST 2025 Diastolic Blood Pressure 78.00 mm[Hg] Kelsy Feb 20 20:43:53 EST 2024 Heart Rate 75.00 /min Kelsy Feb 20 20:43 :53 EST 2024 Systolic Blood Pressure 132.00 mm[Hg] Kelsy Feb 20 08:56:45 EST 2024 Diastolic Blood Pressure 74.00 mm[Hg] Kelsy Feb 20 08:56:45 EST 2024 Systolic Blood Pressure 132.00 mm[Hg] Kelsy Feb 20 08:56:45 EST 2024 Diastolic Blood Pressure 74.00 mm[Hg] Kelsy Feb 20 08:56:45 EST 2024 Heart Rate 86.00 /min Kelsy Feb 20 08:56 :45 EST 2024 Heart Rate 86.00 /min Kelsy Feb 20 08:56 :45 EST 2024 Systolic Blood Pressure 132.00 mm[Hg] Kelsy Feb 20 07:41:48 EST 2024 Diastolic Blood Pressure 74.00 mm[Hg] Kelsy Feb 20 07:41:48 EST 2024 Heart Rate 86.00 /min Kelsy Feb 20 07:41 :48 EST 2024 Pulse Oximetry 99.00 % Kelsy Feb 20 07:41 :48 EST 2024 Systolic Blood Pressure 126.00 mm[Hg] Kelsy Feb 20 04:48:49 EST 2024 Diastolic Blood Pressure 78.00 mm[Hg] Kelsy Feb 20 04:48:49 EST 2024 Pulse Oximetry 96.00 % Kelsy Feb 20 04:48 :49 EST 2024 Heart Rate 75.00 /min Kelsy Feb 20 04:48 :49 EST 2024 Respiratory rate 18.00 /min Kelsy Feb 20 04:4 8:49 EST 2024 Body temperature 97.50 [degF] Kelsy Feb 20 04:4 8:49 EST 2024 Systolic Blood Pressure 118.00 mm[Hg] Wed Feb 19 20:50:59 EST 2024 Diastolic Blood Pressure 73.00 mm[Hg] Wed Feb 19 20:50:59 EST 5 Heart Rate 68.00 /min Wed Feb 19 20:50 :59 EST 2024 Systolic Blood Pressure 107.00 mm[Hg] Wed Feb 19 09:43:26 EST 2024 Diastolic Blood Pressure 64.00 mm[Hg] Wed Feb 19 09:43:26 EST 5 Systolic Blood Pressure 107.00 mm[Hg] Wed Feb 19 09:43:26 EST 5 Diastolic Blood Pressure 64.00 mm[Hg] Wed Feb 19 09:43:26 EST 5 Heart Rate 62.00 /min Wed Feb 19 09:43 :26 EST 5 Heart Rate 62.00 /min Wed Feb 19 09:43 :26 EST 5 Systolic Blood Pressure 98.00 mm[Hg] e Feb 18 20:36:14 EST 5 Diastolic Blood Pressure 61.00 mm[Hg] e Feb 18 20:36:14 EST 5 Heart Rate 72.00 /min e Feb 18 20:36 :14 EST 2024 Body weight 189.60 [lb_av] Mon Feb 18 16:28 :52 EST 5 Systolic Blood Pressure 95.00 mm[Hg] Mon Feb 18 10:00:08 EST 5 Diastolic Blood Pressure 63.00 mm[Hg] e Feb 18 10:00:08 EST 5 Systolic Blood Pressure 95.00 mm[Hg] Mon Feb 18 10:00:08 EST 5 Diastolic Blood Pressure 63.00 mm[Hg] e Feb 18 10:00:08 EST 5 Heart Rate 90.00 /min e Feb 18 10:00 :08 EST 5 Heart Rate 90.00 /min e Feb 18 10:00 :08 EST 5 Systolic Blood Pressure 118.00 mm[Hg] Mon Feb 17 20:31:37 EST 5 Diastolic Blood Pressure 75.00 mm[Hg] Mon Feb 17 20:31:37 EST 5 Heart Rate 72.00 /min Mon Feb 17 20:31 :37 EST 5 Systolic Blood Pressure 113.00 mm[Hg] Mon Feb 17 08:47:10 EST 5 Diastolic Blood Pressure 65.00 mm[Hg] Mon Feb 17 08:47:10 EST 5 Systolic Blood Pressure 113.00 mm[Hg] Mon Feb 17 08:47:10 EST 5 Diastolic Blood Pressure 65.00 mm[Hg] Mon Feb 17 08:47:10 EST 5 Heart Rate 82.00 /min Mon Feb 17 08:47 :10 EST 5 Heart Rate 82.00 /min Mon Feb 17 08:47 :10 EST 5 Systolic Blood Pressure 113.00 mm[Hg] Mon Feb 17 08:25:11 EST 5 Diastolic Blood Pressure 65.00 mm[Hg] Mon Feb 17 08:25:11 EST 2024 Heart Rate 82.00 /min Mon Feb 17 08:25 :11 EST 5 Systolic Blood Pressure 104.00 mm[Hg] Sun Feb 16 22:21:47 EST 5 Diastolic Blood Pressure 64.00 mm[Hg] Sun Feb 16 22:21:47 EST 5 Heart Rate 85.00 /min Sun Feb 16 22:21 :47 EST 5 Systolic Blood Pressure 118.00 mm[Hg] Sun Feb 16 09:58:45 EST 5 Diastolic Blood Pressure 70.00 mm[Hg] Sun Feb 16 09:58:45 EST 5 Systolic Blood Pressure 118.00 mm[Hg] Sun Feb 16 09:58:45 EST 5 Diastolic Blood Pressure 70.00 mm[Hg] Sun Feb 16 09:58:45 EST 5 Heart Rate 81.00 /min Sun Feb 16 09:58 :45 EST 5 Heart Rate 81.00 /min Sun Feb 16 09:58 :45 EST 5 Systolic Blood Pressure 118.00 mm[Hg] Sun Feb 16 08:35:09 EST 5 Diastolic Blood Pressure 70.00 mm[Hg] Sun Feb 16 08:35:09 EST 5 Heart Rate 81.00 /min Sun Feb 16 08:35 :09 EST 5 Systolic Blood Pressure 110.00 mm[Hg] Sat Feb 15 20:05:41 EST 5 Diastolic Blood Pressure 63.00 mm[Hg] Sat Feb 15 20:05:41 EST 5 Heart Rate 59.00 /min Sat Feb 15 20:05 :41 EST 5 Systolic Blood Pressure 109.00 mm[Hg] Sat Feb 15 09:24:56 EST 2025 Diastolic Blood Pressure 69.00 mm[Hg] Sat Feb 15 09:24:56 EST 5 Systolic Blood Pressure 109.00 mm[Hg] Sat Feb 15 09:24:56 EST 2025 Diastolic Blood Pressure 69.00 mm[Hg] Sat Feb 15 09:24:56 EST 2025 Heart Rate 79.00 /min Sat Feb 15 09:24 :56 EST 5 Heart Rate 79.00 /min Sat Feb 15 09:24 :56 EST 2025 Systolic Blood Pressure 109.00 mm[Hg] Sat Feb 15 08:30:44 EST 5 Diastolic Blood Pressure 69.00 mm[Hg] Sat Feb 15 08:30:44 EST 2024 Heart Rate 79.00 /min Sat Feb 15 08:30 :44 EST 2024 Pulse Oximetry 95.00 % Sat Feb 15 08:30 :44 EST 5 Systolic Blood Pressure 114.00 mm[Hg] Fri Feb 14 20:05:44 EST 2024 Diastolic Blood Pressure 66.00 mm[Hg] Fri Feb 14 20:05:44 EST 5 Heart Rate 83.00 /min Fri Feb 14 20:05 :44 EST 2024 Systolic Blood Pressure 100.00 mm[Hg] Fri Feb 14 09:57:14 EST 2024 Diastolic Blood Pressure 65.00 mm[Hg] Fri Feb 14 09:57:14 EST 2024 Systolic Blood Pressure 100.00 mm[Hg] Fri Feb 14 09:57:14 EST 2024 Diastolic Blood Pressure 65.00 mm[Hg] Fri Feb 14 09:57:14 EST 2024 Heart Rate 78.00 /min Fri Feb 14 09:57 :14 EST 2024 Heart Rate 78.00 /min Fri Feb 14 09:57 :14 EST 2024 Systolic Blood Pressure 100.00 mm[Hg] Fri Feb 14 07:52:36 EST 2024 Diastolic Blood Pressure 65.00 mm[Hg] Fri Feb 14 07:52:36 EST 2024 Heart Rate 78.00 /min Fri Feb 14 07:52 :36 EST 2024 Pulse Oximetry 98.00 % Fri Feb 14 07:52 :36 EST 2024 Systolic Blood Pressure 132.00 mm[Hg] Kelsy Feb 13 20:39:19 EST 2024 Diastolic Blood Pressure 77.00 mm[Hg] Kelsy Feb 13 20:39:19 EST 2024 Heart Rate 75.00 /min Kelsy Feb 13 20:39 :19 EST 2024 Systolic Blood Pressure 140.00 mm[Hg] Kelsy Feb 13 11:04:21 EST 5 Diastolic Blood Pressure 76.00 mm[Hg] Kelsy Feb 13 11:04:21 EST 2024 Systolic Blood Pressure 140.00 mm[Hg] Kelsy Feb 13 11:04:21 EST 2024 Diastolic Blood Pressure 76.00 mm[Hg] Kelsy Feb 13 11:04:21 EST 2024 Heart Rate 94.00 /min Kelsy Feb 13 11:04 :21 EST 2024 Heart Rate 94.00 /min Kelsy Feb 13 11:04 :21 EST 5 Systolic Blood Pressure 116.00 mm[Hg] Kelsy Feb 13 04:20:22 EST 5 Diastolic Blood Pressure 68.00 mm[Hg] Kelsy Feb 13 04:20:22 EST 2024 Pulse Oximetry 97.00 % Kelsy Feb 13 04:20 :22 EST 2024 Heart Rate 75.00 /min Kelsy Feb 13 04:20 :22 EST 5 Respiratory rate 20.00 /min Kelsy Feb 13 04:2 0:22 EST 2024 Body temperature 97.80 [degF] Kelsy Feb 13 04:2 0:22 EST 2024 Systolic Blood Pressure 110.00 mm[Hg] Wed Feb 12 20:27:30 EST 5 Diastolic Blood Pressure 61.00 mm[Hg] Wed Feb 12 20:27:30 EST 2024 Heart Rate 84.00 /min Wed Feb 12 20:27 :30 EST 5 Respiratory rate 18.00 /min Wed Feb 12 20:0 3:50 EST 2024 Systolic Blood Pressure 110.00 mm[Hg] Wed Feb 12 20:03:45 EST 5 Diastolic Blood Pressure 61.00 mm[Hg] Wed Feb 12 20:03:45 EST 2024 Body temperature 98.10 [degF] Wed Feb 12 20:0 3:29 EST 2024 Heart Rate 84.00 /min Wed Feb 12 20:03 :21 EST 2024 Pulse Oximetry 95.00 % Wed Feb 12 20:03 :09 EST 5 Systolic Blood Pressure 98.00 mm[Hg] Wed Feb 12 09:46:14 EST 5 Diastolic Blood Pressure 60.00 mm[Hg] Wed Feb 12 09:46:14 EST 5 Systolic Blood Pressure 98.00 mm[Hg] Wed Feb 12 09:46:14 EST 5 Diastolic Blood Pressure 60.00 mm[Hg] Wed Feb 12 09:46:14 EST 5 Heart Rate 88.00 /min Wed Feb 12 09:46 :14 EST 5 Heart Rate 88.00 /min Wed Feb 12 09:46 :14 EST 5 Systolic Blood Pressure 128.00 mm[Hg] Tue Feb 11 20:10:58 EST 2024 Diastolic Blood Pressure 74.00 mm[Hg] Mon Feb 11 20:10:58 EST 2024 Heart Rate 68.00 /min Mon Feb 11 20:10 :58 EST 5 Systolic Blood Pressure 122.00 mm[Hg] e Feb 09:24:22 EST 5 Diastolic Blood Pressure 68.00 mm[Hg] e Feb 09:24:22 EST 5 Systolic Blood Pressure 122.00 mm[Hg] Mon Feb 09:24:22 EST 5 Diastolic Blood Pressure 68.00 mm[Hg] Mon Feb 09:24:22 EST 2024 Heart Rate 76.00 /min Mon Feb 09:24 :22 EST 2024 Heart Rate 76.00 /min Mon Feb 09:24 :22 EST 5 Systolic Blood Pressure 122.00 mm[Hg] Mon Feb 07:47:15 EST 2024 Diastolic Blood Pressure 68.00 mm[Hg] Monb 07:47:15 EST 5 Systolic Blood Pressure 122.00 mm[Hg] Monb 07:47:15 EST 5 Diastolic Blood Pressure 68.00 mm[Hg] Mon Feb 07:47:15 EST 2024 Pulse Oximetry 92.00 % Monb 07:47 :15 EST 2024 Pulse Oximetry 92.00 % Monb 07:47 :15 EST 5 Heart Rate 76.00 /min Monb 07:47 :15 EST 5 Heart Rate 76.00 /min Monb 07:47 :15 EST 5 Systolic Blood Pressure 98.00 mm[Hg] Monb 10 20:39:37 EST 5 Diastolic Blood Pressure 69.00 mm[Hg] Monb 10 20:39:37 EST 2024 Heart Rate 82.00 /min Monb 10 20:39 :37 EST 2024 Body weight 202.60 [lb_av] Monb 10 19:00 :53 EST 5 Systolic Blood Pressure 105.00 mm[Hg] Mon Feb 10 09:49:26 EST 5 Diastolic Blood Pressure 69.00 mm[Hg] Monb 10 09:49:26 EST 5 Systolic Blood Pressure 105.00 mm[Hg] Mon Feb 10 09:49:26 EST 2024 Diastolic Blood Pressure 69.00 mm[Hg] Mon Feb 10 09:49:26 EST 2024 Heart Rate 92.00 /min Mon Feb 10 09:49 :26 EST 2024 Heart Rate 92.00 /min Mon Feb 10 09:49 :26 EST 2024 Systolic Blood Pressure 105.00 mm[Hg] Mon Feb 10 07:52:39 EST 2024 Diastolic Blood Pressure 69.00 mm[Hg] Mon Feb 10 07:52:39 EST 2024 Systolic Blood Pressure 105.00 mm[Hg] Mon Feb 10 07:52:39 EST 2024 Diastolic Blood Pressure 69.00 mm[Hg] Mon Feb 10 07:52:39 EST 2024 Heart Rate 92.00 /min Mon Feb 10 07:52 :39 EST 2024 Heart Rate 92.00 /min Mon Feb 10 07:52 :39 EST 2024 Pulse Oximetry 95.00 % Mon Feb 10 07:52 :39 EST 2024 Pulse Oximetry 95.00 % Mon Feb 10 07:52 :39 EST 2024 Systolic Blood Pressure 108.00 mm[Hg] Sun Feb 20:15:14 EST 2024 Diastolic Blood Pressure 64.00 mm[Hg] Sun Feb 20:15:14 EST 2024 Heart Rate 86.00 /min Sun Feb 20:15 :14 EST 2024 Systolic Blood Pressure 119.00 mm[Hg] Sun Feb 10:00:00 EST 2024 Diastolic Blood Pressure 68.00 mm[Hg] Sun Feb 10:00:00 EST 2024 Systolic Blood Pressure 119.00 mm[Hg] Sun Feb 10:00:00 EST 2024 Diastolic Blood Pressure 68.00 mm[Hg] Sun Feb 10:00:00 EST 2024 Heart Rate 85.00 /min Sun Feb 10:00 :00 EST 2024 Heart Rate 85.00 /min Sun Feb 10:00 :00 EST 2024 Systolic Blood Pressure 119.00 mm[Hg] Sun Feb 07:38:39 EST 2024 Diastolic Blood Pressure 68.00 mm[Hg] Sun Feb 07:38:39 EST 2024 Systolic Blood Pressure 119.00 mm[Hg] Sun Feb 07:38:39 EST 2024 Diastolic Blood Pressure 68.00 mm[Hg] Sun Feb 09 07:38:39 EST 2024 Heart Rate 85.00 /min Sun Feb 07:38 :39 EST 2024 Heart Rate 85.00 /min Sun Feb 07:38 :39 EST 2024 Pulse Oximetry 97.00 % Sun Feb 07:38 :39 EST 2024 Pulse Oximetry 97.00 % Sun Feb 07:38 :39 EST 2024 Systolic Blood Pressure 92.00 mm[Hg] Sat Feb 08 20:05:20 EST 2024 Diastolic Blood Pressure 64.00 mm[Hg] Sat Feb 08 20:05:20 EST 2024 Heart Rate 89.00 /min Sat Feb 08 20:05 :20 EST 2024 Systolic Blood Pressure 102.00 mm[Hg] Sat Feb 08 10:58:38 EST 2024 Diastolic Blood Pressure 53.00 mm[Hg] Sat Feb 08 10:58:38 EST 2024 Systolic Blood Pressure 102.00 mm[Hg] Sat Feb 08 10:58:38 EST 2024 Diastolic Blood Pressure 53.00 mm[Hg] Sat Feb 08 10:58:38 EST 2024 Heart Rate 82.00 /min Sat Feb 08 10:58 :38 EST 2024 Heart Rate 82.00 /min Sat Feb 08 10:58 :38 EST 2024 Systolic Blood Pressure 99.00 mm[Hg] Fri Feb 07 20:34:26 EST 2024 Diastolic Blood Pressure 61.00 mm[Hg] Fri Feb 07 20:34:26 EST 2024 Heart Rate 80.00 /min Fri Feb 07 20:34 :26 EST 2024 Systolic Blood Pressure 113.00 mm[Hg] Fri Feb 07 09:41:43 EST 2024 Diastolic Blood Pressure 61.00 mm[Hg] Fri Feb 07 09:41:43 EST 5 Systolic Blood Pressure 113.00 mm[Hg] Fri Feb 09:41:43 EST 2024 Diastolic Blood Pressure 61.00 mm[Hg] Mon Feb 09:41:43 EST 2024 Heart Rate 84.00 /min Mon Feb 09:41 :43 EST 2024 Heart Rate 84.00 /min Fri Feb 09:41 :43 EST 2024 Systolic Blood Pressure 113.00 mm[Hg] Fri Feb 07 08:03:29 EST 2024 Diastolic Blood Pressure 61.00 mm[Hg] Fri Feb 07 08:03:29 EST 5 Systolic Blood Pressure 113.00 mm[Hg] Fri Feb 07 08:03:29 EST 2025 Diastolic Blood Pressure 61.00 mm[Hg] Fri Feb 07 08:03:29 EST 5 Pulse Oximetry 97.00 % Fri Feb 07 08:03 :29 EST 2025 Heart Rate 84.00 /min Fri Feb 07 08:03 :29 EST 5 Pulse Oximetry 97.00 % Mon Feb 07 08:03 :29 EST 2025 Heart Rate 84.00 /min Fri Feb 07 08:03 :29 EST 2025 Systolic Blood Pressure 132.00 mm[Hg] Kelsy Feb 06 21:03:51 EST 2025 Diastolic Blood Pressure 74.00 mm[Hg] Kelsy Feb 06 21:03:51 EST 5 Heart Rate 78.00 /min Kelsy Feb 06 21:03 :51 EST 2025 Systolic Blood Pressure 110.00 mm[Hg] Kelsy Feb 06 10:05:29 EST 2025 Diastolic Blood Pressure 80.00 mm[Hg] Kelsy Feb 06 10:05:29 EST 2025 Systolic Blood Pressure 110.00 mm[Hg] Kelsy Feb 06 10:05:29 EST 2025 Diastolic Blood Pressure 80.00 mm[Hg] Kelsy Feb 06 10:05:29 EST 2025 Heart Rate 88.00 /min Kelsy Feb 06 10:05 :29 EST 2025 Heart Rate 88.00 /min Kelsy Feb 06 10:05 :29 EST 2025 Systolic Blood Pressure 110.00 mm[Hg] Kelsy Feb 06 07:27:31 EST 2025 Diastolic Blood Pressure 80.00 mm[Hg] Kelsy Feb 06 07:27:31 EST 2025 Systolic Blood Pressure 110.00 mm[Hg] Kelsy Feb 06 07:27:31 EST 2025 Diastolic Blood Pressure 80.00 mm[Hg] Kelsy Feb 06 07:27:31 EST 2025 Heart Rate 88.00 /min Kelsy Feb 06 07:27 :31 EST 2025 Pulse Oximetry 91.00 % Kelsy Feb 06 07:27 :31 EST 2025 Heart Rate 88.00 /min Kelsy Feb 06 07:27 :31 EST 2025 Pulse Oximetry 91.00 % Kelsy Feb 06 07:27 :31 EST 2025 Systolic Blood Pressure 108.00 mm[Hg] Kelsy Feb 06 04:43:26 EST 5 Diastolic Blood Pressure 66.00 mm[Hg] Kelsy Feb 06 04:43:26 EST 2024 Pulse Oximetry 95.00 % Kelsy Feb 06 04:43 :26 EST 5 Heart Rate 84.00 /min Kelsy Feb 06 04:43 :26 EST 5 Respiratory rate 18.00 /min Kelsy Feb 06 04:4 3:26 EST 2024 Body temperature 97.40 [degF] Kelsy Feb 06 04:4 3:26 EST 5 Systolic Blood Pressure 108.00 mm[Hg] Wed Feb 05 21:11:37 EST 5 Diastolic Blood Pressure 66.00 mm[Hg] Wed Feb 05 21:11:37 EST 5 Heart Rate 84.00 /min Wed Feb 05 21:11 :37 EST 5 Systolic Blood Pressure 94.00 mm[Hg] Wed Feb 05 09:26:11 EST 5 Diastolic Blood Pressure 57.00 mm[Hg] Wed Feb 05 09:26:11 EST 5 Systolic Blood Pressure 94.00 mm[Hg] Wed Feb 05 09:26:11 EST 5 Diastolic Blood Pressure 57.00 mm[Hg] Wed Feb 05 09:26:11 EST 5 Heart Rate 98.00 /min Wed Feb 05 09:26 :11 EST 5 Heart Rate 98.00 /min Wed Feb 05 09:26 :11 EST 5 Systolic Blood Pressure 99.00 mm[Hg] Mon Feb 04 20:46:33 EST 5 Diastolic Blood Pressure 62.00 mm[Hg] Mon Feb 04 20:46:33 EST 5 Heart Rate 83.00 /min Mon Feb 04 20:46 :33 EST 5 Systolic Blood Pressure 104.00 mm[Hg] Mon Feb 04 09:57:53 EST 5 Diastolic Blood Pressure 70.00 mm[Hg] Mon Feb 04 09:57:53 EST 5 Systolic Blood Pressure 104.00 mm[Hg] Mon Feb 04 09:57:53 EST 5 Diastolic Blood Pressure 70.00 mm[Hg] Mon Feb 04 09:57:53 EST 2024 Heart Rate 98.00 /min Monb 04 09:57 :53 EST 2025 Heart Rate 98.00 /min e Feb 09:57 :53 EST 2024 Body weight 201.80 [lb_av] Monb 18:59 :00 EST 2024 Systolic Blood Pressure 110.00 mm[Hg] Mon Feb 11:22:17 EST 2024 Diastolic Blood Pressure 68.00 mm[Hg] Mon Feb 11:22:17 EST 2024 Systolic Blood Pressure 110.00 mm[Hg] Mon Feb 11:22:17 EST 2024 Diastolic Blood Pressure 68.00 mm[Hg] Mon Feb 11:22:17 EST 2024 Heart Rate 82.00 /min Mon Feb 11:22 :17 EST 2024 Heart Rate 82.00 /min Mon Feb 11:22 :17 EST 2024 Systolic Blood Pressure 101.00 mm[Hg] Sun Feb 02 20:07:43 EST 2024 Diastolic Blood Pressure 63.00 mm[Hg] Sun Feb 02 20:07:43 EST 2024 Heart Rate 86.00 /min Sun Feb 02 20:07 :43 EST 2024 Systolic Blood Pressure 108.00 mm[Hg] Sun Feb 02 10:05:42 EST 2024 Diastolic Blood Pressure 72.00 mm[Hg] Sun Feb 02 10:05:42 EST 2024 Systolic Blood Pressure 108.00 mm[Hg] Sun Feb 02 10:05:42 EST 2024 Diastolic Blood Pressure 72.00 mm[Hg] Sun Feb 02 10:05:42 EST 2024 Heart Rate 97.00 /min Sun Feb 02 10:05 :42 EST 2024 Heart Rate 97.00 /min Sun Feb 02 10:05 :42 EST 2024 Systolic Blood Pressure 106.00 mm[Hg] Sat Feb 01 23:02:09 EST 2024 Diastolic Blood Pressure 59.00 mm[Hg] Sat Feb 01 23:02:09 EST 2024 Heart Rate 88.00 /min Sat Feb 01 23:02 :09 EST 2024 Systolic Blood Pressure 110.00 mm[Hg] Sat Feb 01 09:34:12 EST 2024 Diastolic Blood Pressure 56.00 mm[Hg] Sat Feb 01 09:34:12 EST 2024 Systolic Blood Pressure 110.00 mm[Hg] Sat Feb 01 09:34:12 EST 2024 Diastolic Blood Pressure 56.00 mm[Hg] Sat Feb 01 09:34:12 EST 2024 Heart Rate 96.00 /min Sat Mar 09 09:34 :12 EST 2024 Heart Rate 96.00 /min Sat Mar 09 09:34 :12 EST 5 Systolic Blood Pressure 94.00 mm[Hg] MonMar 08 20:58:27 EST 2024 Diastolic Blood Pressure 56.00 mm[Hg] MonMar 08 20:58:27 EST 2024 Heart Rate 88.00 /min MonMar 08 20:58 :27 EST 2024 Body weight 205.00 [lb_av] MonMar 08 17:03 :43 EST 2024 Systolic Blood Pressure 94.00 mm[Hg] MonMar 08 09:39:40 EST 2024 Diastolic Blood Pressure 58.00 mm[Hg] MonMar 08 09:39:40 EST 2024 Systolic Blood Pressure 94.00 mm[Hg] MonMar 08 09:39:40 EST 2024 Diastolic Blood Pressure 58.00 mm[Hg] MonMar 08 09:39:40 EST 2024 Systolic Blood Pressure 94.00 mm[Hg] MonMar 08 09:39:40 EST 2024 Diastolic Blood Pressure 58.00 mm[Hg] MonMar 08 09:39:40 EST 2024 Pulse Oximetry 98.00 % MonMar 08 09:39 :40 EST 2024 Heart Rate 96.00 /min MonMar 08 09:39 :40 EST 2024 Respiratory rate 20.00 /min MonMar 08 09:3 9:40 EST 2024 Body temperature 98.20 [degF] MonMar 08 09:3 9:40 EST 2024 Heart Rate 96.00 /min MonMar 08 09:39 :40 EST 2024 Heart Rate 96.00 /min MonMar 08 09:39 :40 EST 5 Systolic Blood Pressure 108.00 mm[Hg] MonMar 08 00:33:10 EST 2024 Diastolic Blood Pressure 54.00 mm[Hg] MonMar 08 00:33:10 EST 2024 Pulse Oximetry 95.00 % MonMar 08 00:33 :10 EST 2024 Heart Rate 72.00 /min MonMar 08 00:33 :10 EST 5 Respiratory rate 18.00 /min MonMar 08 00:3 3:10 EST 2024 Body temperature 98.30 [degF] MonMar 08 00:3 3:10 EST 5 Systolic Blood Pressure 108.00 mm[Hg] MonMar 07 20:54:39 EST 2025 Diastolic Blood Pressure 54.00 mm[Hg] MonMar 07 20:54:39 EST 2024 Heart Rate 72.00 /min MonMar 07 20:54 :39 2024 Body weight 205.20 [lb_av] MonMar 07 15:15 :50 EST 2024 Systolic Blood Pressure 131.00 mm[Hg] MonMar 07 10:18:21 2024 Diastolic Blood Pressure 69.00 mm[Hg] MonMar 07 10:18:21 EST 2024 Systolic Blood Pressure 131.00 mm[Hg] MonMar 07 10:18:21 EST 2024 Diastolic Blood Pressure 69.00 mm[Hg] MonMar 07 10:18:21 2024 Systolic Blood Pressure 131.00 mm[Hg] MonMar 07 10:18:21 2024 Diastolic Blood Pressure 69.00 mm[Hg] MonMar 07 10:18:21 2024 Pulse Oximetry 98.00 % MonMar 07 10:18 :21 2024 Heart Rate 82.00 /min MonMar 07 10:18 :21 2024 Respiratory rate 20.00 /min MonMar 07 10:1 8:21 2024 Body temperature 98.20 [degF] MonMar 07 10:1 8:21 2024 Heart Rate 82.00 /min MonMar 07 10:18 :21 2024 Heart Rate 82.00 /min MonMar 07 10:18 :21 2024 Systolic Blood Pressure 95.00 mm[Hg] MonMar 06 22:22:25 2024 Diastolic Blood Pressure 56.00 mm[Hg] MonMar 06 22:22:25 2024 Pulse Oximetry 96.00 % MonMar 06 22:22 :25 2024 Heart Rate 88.00 /min MonMar 06 22:22 :25 2024 Respiratory rate 18.00 /min MonMar 06 22:2 2:25 2024 Body temperature 98.20 [degF] MonMar 06 22:2 2:25 2024 Systolic Blood Pressure 95.00 mm[Hg] MonMar 06 20:26:45 EST 2024 Diastolic Blood Pressure 56.00 mm[Hg] MonMar 06 20:26:45 EST 2024 Heart Rate 88.00 /min MonMar 06 20:26 :45 2024 Body weight 209.90 [lb_av] MonMar 06 15:00 :07 EST 2024 Systolic Blood Pressure 102.00 mm[Hg] MonMar 06 09:29:46 EST 2024 Diastolic Blood Pressure 65.00 mm[Hg] MonMar 06 09:29:46 EST 2024 Systolic Blood Pressure 102.00 mm[Hg] MonMar 06 09:29:46 EST 2024 Diastolic Blood Pressure 65.00 mm[Hg] MonMar 06 09:29:46 EST 2024 Systolic Blood Pressure 102.00 mm[Hg] MonMar 06 09:29:46 EST 2024 Diastolic Blood Pressure 65.00 mm[Hg] MonMar 06 09:29:46 EST 2024 Pulse Oximetry 97.00 % MonMar 06 09:29 :46 EST 2024 Heart Rate 82.00 /min MonMar 06 09:29 :46 EST 2024 Respiratory rate 18.00 /min MonMar 06 09:2 9:46 EST 2024 Body temperature 98.00 [degF] MonMar 06 09:2 9:46 EST 2024 Heart Rate 82.00 /min MonMar 06 09:29 :46 EST 2024 Heart Rate 82.00 /min MonMar 06 09:29 :46 EST 2024 Systolic Blood Pressure 95.00 mm[Hg] MonMar 05 22:15:09 EST 2024 Diastolic Blood Pressure 57.00 mm[Hg] MonMar 05 22:15:09 EST 2024 Pulse Oximetry 98.00 % MonMar 05 22:15 :09 EST 2024 Heart Rate 81.00 /min MonMar 05 22:15 :09 EST 2024 Respiratory rate 20.00 /min MonMar 05 22:1 5:09 EST 2024 Body temperature 98.20 [degF] MonMar 05 22:1 5:09 EST 2024 Systolic Blood Pressure 95.00 mm[Hg] MonMar 05 20:35:11 EST 2024 Diastolic Blood Pressure 57.00 mm[Hg] MonMar 05 20:35:11 EST 2024 Heart Rate 81.00 /min MonMar 05 20:35 :11 EST 2024 Body weight 208.40 [lb_av] MonMar 05 13:27 :12 EST 2024 Body weight 204.60 [lb_av] MonMar 05 09:48 :30 EST 2024 Systolic Blood Pressure 117.00 mm[Hg] MonMar 05 09:04:32 EST 2024 Diastolic Blood Pressure 65.00 mm[Hg] MonMar 05 09:04:32 EST 2024 Systolic Blood Pressure 117.00 mm[Hg] MonMar 05 09:04:32 EST 2024 Diastolic Blood Pressure 65.00 mm[Hg] MonMar 05 09:04:32 EST 2024 Heart Rate 76.00 /min MonMar 05 09:04 :32 EST 2024 Heart Rate 76.00 /min MonMar 05 09:04 :32 EST 2024 Systolic Blood Pressure 117.00 mm[Hg] MonMar 05 08:44:01 EST 2024 Diastolic Blood Pressure 65.00 mm[Hg] MonMar 05 08:44:01 EST 2024 Pulse Oximetry 98.00 % MonMar 05 08:44 :01 EST 2024 Heart Rate 76.00 /min MonMar 05 08:44 :01 EST 2024 Respiratory rate 19.00 /min MonMar 05 08:4 4:01 EST 2024 Body temperature 98.20 [degF] MonMar 05 08:4 4:01 EST 2024 Systolic Blood Pressure 130.00 mm[Hg] MonMar 05 00:23:49 EST 2024 Diastolic Blood Pressure 64.00 mm[Hg] MonMar 05 00:23:49 EST 2024 Pulse Oximetry 97.00 % MonMar 05 00:23 :49 EST 2024 Heart Rate 84.00 /min MonMar 05 00:23 :49 EST 2024 Respiratory rate 20.00 /min MonMar 05 00:2 3:49 EST 2024 Body temperature 98.00 [degF] MonMar 05 00:2 3:49 EST 2024 Systolic Blood Pressure 130.00 mm[Hg] MonMar 04 21:51:00 EST 2024 Diastolic Blood Pressure 64.00 mm[Hg] MonMar 04 21:51:00 EST 2024 Heart Rate 84.00 /min MonMar 04 21:51 :00 EST 2024 Body weight 204.20 [lb_av] MonMar 04 11:55 :14 EST 2024 Systolic Blood Pressure 130.00 mm[Hg] MonMar 04 10:04:21 EST 2024 Diastolic Blood Pressure 87.00 mm[Hg] MonMar 04 10:04:21 EST 2024 Systolic Blood Pressure 130.00 mm[Hg] MonMar 04 10:04:21 EST 2024 Diastolic Blood Pressure 87.00 mm[Hg] MonMar 04 10:04:21 EST 2024 Heart Rate 92.00 /min MonMar 04 10:04 :21 EST 2024 Heart Rate 92.00 /min MonMar 04 10:04 :21 EST 2024 Systolic Blood Pressure 130.00 mm[Hg] MonMar 04 08:15:37 EST 2024 Diastolic Blood Pressure 87.00 mm[Hg] MonMar 04 08:15:37 EST 2024 Pulse Oximetry 98.00 % MonMar 04 08:15 :37 EST 2024 Heart Rate 92.00 /min MonMar 04 08:15 :37 EST 2024 Respiratory rate 19.00 /min MonMar 04 08:1 5:37 EST 2024 Body temperature 98.00 [degF] MonMar 04 08:1 5:37 EST 2024 Systolic Blood Pressure 107.00 mm[Hg] MonMar 03 20:01:53 EST 2024 Diastolic Blood Pressure 61.00 mm[Hg] MonMar 03 20:01:53 EST 2024 Heart Rate 90.00 /min MonMar 03 20:01 :53 EST 2024 Systolic Blood Pressure 107.00 mm[Hg] MonMar 03 19:52:48 EST 2024 Diastolic Blood Pressure 61.00 mm[Hg] MonMar 03 19:52:48 EST 2024 Pulse Oximetry 97.00 % MonMar 03 19:52 :48 EST 2024 Heart Rate 90.00 /min MonMar 03 19:52 :48 EST 2024 Respiratory rate 18.00 /min MonMar 03 19:5 2:48 EST 2024 Body temperature 98.30 [degF] MonMar 03 19:5 2:48 EST 2024 Systolic Blood Pressure 109.00 mm[Hg] MonMar 03 10:29:02 EST 2024 Diastolic Blood Pressure 61.00 mm[Hg] MonMar 03 10:29:02 EST 2024 Systolic Blood Pressure 109.00 mm[Hg] MonMar 03 10:29:02 EST 2024 Diastolic Blood Pressure 61.00 mm[Hg] MonMar 03 10:29:02 EST 2024 Systolic Blood Pressure 109.00 mm[Hg] MonMar 03 10:29:02 EST 2024 Diastolic Blood Pressure 61.00 mm[Hg] MonMar 03 10:29:02 EST 2024 Pulse Oximetry 95.00 % MonMar 03 10:29 :02 EST 2024 Heart Rate 83.00 /min MonMar 03 10:29 :02 EST 2024 Respiratory rate 18.00 /min MonMar 03 10:2 9:02 EST 2024 Body temperature 98.70 [degF] MonMar 03 10:2 9:02 EST 2024 Heart Rate 83.00 /min MonMar 03 10:29 :02 EST 2024 Heart Rate 83.00 /min MonMar 03 10:29 :02 EST 2024 Systolic Blood Pressure 129.00 mm[Hg] Sat Mar 02 22:01:30 EST 2024 Diastolic Blood Pressure 62.00 mm[Hg] Sat Mar 02 22:01:30 EST 2024 Pulse Oximetry 98.00 % Sat Mar 02 22:01 :30 EST 2024 Heart Rate 82.00 /min Sat Mar 02 22:01 :30 EST 2024 Respiratory rate 20.00 /min Sat Mar 02 22:0 1:30 EST 2024 Body temperature 98.40 [degF] Sat Mar 02 22:0 1:30 EST 2024 Systolic Blood Pressure 124.00 mm[Hg] Sat Mar 02 21:20:51 EST 2024 Diastolic Blood Pressure 62.00 mm[Hg] Sat Mar 02 21:20:51 EST 2024 Heart Rate 82.00 /min Sat Mar 02 21:20 :51 EST 2024 Systolic Blood Pressure 106.00 mm[Hg] Sat Mar 02 09:55:17 EST 2024 Diastolic Blood Pressure 67.00 mm[Hg] Sat Mar 02 09:55:17 EST 2024 Systolic Blood Pressure 106.00 mm[Hg] Sat Mar 02 09:55:17 EST 2024 Diastolic Blood Pressure 67.00 mm[Hg] Sat Mar 02 09:55:17 EST 2024 Heart Rate 86.00 /min Sat Mar 02 09:55 :17 EST 2024 Heart Rate 85.00 /min Sat Mar 02 09:55 :17 EST 2024 Systolic Blood Pressure 108.00 mm[Hg] Sat Mar 02 08:52:26 EST 2024 Diastolic Blood Pressure 67.00 mm[Hg] Sat Mar 02 08:52:26 EST 2024 Pulse Oximetry 97.00 % Sat Mar 02 08:52 :26 EST 2024 Heart Rate 86.00 /min Sat Mar 02 08:52 :26 EST 2024 Respiratory rate 20.00 /min Sat Mar 02 08:5 2:26 EST 2024 Body temperature 98.50 [degF] Sat Mar 02 08:5 2:26 EST 2024 Systolic Blood Pressure 103.00 mm[Hg] MonMar 01 21:14:46 EST 2024 Diastolic Blood Pressure 65.00 mm[Hg] MonMar 01 21:14:46 EST 2024 Systolic Blood Pressure 103.00 mm[Hg] MonMar 01 21:14:46 EST 2024 Diastolic Blood Pressure 65.00 mm[Hg] MonMar 01 21:14:46 EST 2024 Body weight 211.40 [lb_av] MonMar 01 21:14 :46 EST 2024 Pulse Oximetry 97.00 % MonMar 01 21:14 :46 EST 2024 Heart Rate 87.00 /min MonMar 01 21:14 :46 EST 2024 Respiratory rate 18.00 /min MonMar 01 21:1 4:46 EST 2024 Body temperature 98.30 [degF] MonMar 01 21:1 4:46 EST 2024 Heart Rate 87.00 /min MonMar 01 21:14 :46 EST 2024 Systolic Blood Pressure 106.00 mm[Hg] MonMar 01 09:20:08 EST 2024 Diastolic Blood Pressure 67.00 mm[Hg] MonMar 01 09:20:08 EST 2024 Systolic Blood Pressure 106.00 mm[Hg] MonMar 01 09:20:08 EST 2024 Diastolic Blood Pressure 67.00 mm[Hg] MonMar 01 09:20:08 EST 2024 Systolic Blood Pressure 106.00 mm[Hg] MonMar 01 09:20:08 EST 2024 Diastolic Blood Pressure 67.00 mm[Hg] MonMar 01 09:20:08 EST 2024 Pulse Oximetry 96.00 % MonMar 01 09:20 :08 EST 2024 Heart Rate 90.00 /min MonMar 01 09:20 :08 EST 2024 Respiratory rate 18.00 /min MonMar 01 09:2 0:08 EST 2024 Body temperature 98.30 [degF] MonMar 01 09:2 0:08 EST 2024 Heart Rate 90.00 /min MonMar 01 09:20 :08 EST 2024 Heart Rate 90.00 /min MonMar 01 09:20 :08 EST 2024 Systolic Blood Pressure 112.00 mm[Hg] MonMar 01 00:13:00 EST 2024 Diastolic Blood Pressure 67.00 mm[Hg] MonMar 01 00:13:00 EST 2024 Pulse Oximetry 95.00 % MonMar 01 00:13 :00 EST 2024 Heart Rate 86.00 /min MonMar 01 00:13 :00 EST 2024 Respiratory rate 16.00 /min MonMar 01 00:1 3:00 EST 2024 Body temperature 98.70 [degF] MonMar 01 00:1 3:00 EST 2024 Systolic Blood Pressure 112.00 mm[Hg] MonFeb 28 22:00:12 EST 2024 Diastolic Blood Pressure 67.00 mm[Hg] MonFeb 28 22:00:12 EST 2024 Heart Rate 86.00 /min MonFeb 28 22:00 :12 EST 2024 Body weight 212.80 [lb_av] MonFeb 28 09:52 :08 EST 2024 Systolic Blood Pressure 118.00 mm[Hg] MonFeb 28 09:04:43 EST 2024 Diastolic Blood Pressure 66.00 mm[Hg] MonFeb 28 09:04:43 EST 2024 Systolic Blood Pressure 118.00 mm[Hg] MonFeb 28 09:04:43 EST 2024 Diastolic Blood Pressure 66.00 mm[Hg] MonFeb 28 09:04:43 EST 2024 Systolic Blood Pressure 118.00 mm[Hg] MonFeb 28 09:04:43 EST 2024 Diastolic Blood Pressure 66.00 mm[Hg] MonFeb 28 09:04:43 EST 2024 Pulse Oximetry 96.00 % MonFeb 28 09:04 :43 EST 2024 Heart Rate 84.00 /min MonFeb 28 09:04 :43 EST 2024 Respiratory rate 18.00 /min MonFeb 28 09:0 4:43 EST 2024 Body temperature 98.20 [degF] MonFeb 28 09:0 4:43 EST 2024 Heart Rate 84.00 /min MonFeb 28 09:04 :43 EST 2024 Heart Rate 84.00 /min MonFeb 28 09:04 :43 EST 2024 Systolic Blood Pressure 115.00 mm[Hg] MonFeb 28 02:14:12 EST 2024 Diastolic Blood Pressure 63.00 mm[Hg] MonFeb 28 02:14:12 EST 2024 Pulse Oximetry 97.00 % MonFeb 28 02:14 :12 EST 2024 Heart Rate 74.00 /min MonFeb 28 02:14 :12 EST 2024 Respiratory rate 20.00 /min MonFeb 28 02:1 4:12 EST 2024 Body temperature 97.90 [degF] MonFeb 28 02:1 4:12 EST 2024 Systolic Blood Pressure 115.00 mm[Hg] MonFeb 27 21:17:53 EST 2024 Diastolic Blood Pressure 63.00 mm[Hg] MonFeb 27 21:17:53 EST 2024 Heart Rate 74.00 /min MonFeb 27 21:17 :53 EST 2024 Systolic Blood Pressure 119.00 mm[Hg] MonFeb 27 09:09:05 EST 2024 Diastolic Blood Pressure 73.00 mm[Hg] MonFeb 27 09:09:05 EST 2024 Systolic Blood Pressure 119.00 mm[Hg] MonFeb 27 09:09:05 EST 2024 Diastolic Blood Pressure 73.00 mm[Hg] MonFeb 27 09:09:05 EST 2024 Heart Rate 79.00 /min MonFeb 27 09:09 :05 EST 2024 Heart Rate 79.00 /min MonFeb 27 09:09 :05 EST 2024 Systolic Blood Pressure 119.00 mm[Hg] MonFeb 27 09:04:49 EST 2024 Diastolic Blood Pressure 73.00 mm[Hg] MonFeb 27 09:04:49 EST 2024 Pulse Oximetry 98.00 % MonFeb 27 09:04 :49 EST 2024 Heart Rate 79.00 /min MonFeb 27 09:04 :49 EST 2024 Respiratory rate 18.00 /min MonFeb 27 09:0 4:49 EST 2024 Body temperature 98.20 [degF] MonFeb 27 09:0 4:49 EST 2024 Systolic Blood Pressure 104.00 mm[Hg] MonFeb 26 23:44:10 EST 2024 Diastolic Blood Pressure 61.00 mm[Hg] MonFeb 26 23:44:10 EST 2024 Pulse Oximetry 97.00 % MonFeb 26 23:44 :10 EST 2024 Heart Rate 84.00 /min MonFeb 26 23:44 :10 EST 2024 Respiratory rate 18.00 /min MonFeb 26 23:4 4:10 EST 2024 Body temperature 98.30 [degF] MonFeb 26 23:4 4:10 EST 2024 Systolic Blood Pressure 104.00 mm[Hg] MonFeb 26 20:02:32 EST 2024 Diastolic Blood Pressure 61.00 mm[Hg] MonFeb 26 20:02:32 EST 2024 Heart Rate 84.00 /min MonFeb 26 20:02 :32 EST 2024 Systolic Blood Pressure 124.00 mm[Hg] MonFeb 26 10:27:33 EST 2024 Diastolic Blood Pressure 75.00 mm[Hg] MonFeb 26 10:27:33 EST 2024 Pulse Oximetry 97.00 % MonFeb 26 10:27 :33 EST 2024 Heart Rate 88.00 /min MonFeb 26 10:27 :33 EST 2024 Respiratory rate 18.00 /min MonFeb 26 10:2 7:33 EST 2024 Body temperature 97.90 [degF] MonFeb 26 10:2 7:33 EST 2024 Systolic Blood Pressure 124.00 mm[Hg] MonFeb 26 10:03:38 EST 2024 Diastolic Blood Pressure 75.00 mm[Hg] MonFeb 26 10:03:38 EST 2024 Systolic Blood Pressure 124.00 mm[Hg] MonFeb 26 10:03:38 EST 2024 Diastolic Blood Pressure 75.00 mm[Hg] MonFeb 26 10:03:38 EST 2024 Heart Rate 88.00 /min MonFeb 26 10:03 :38 EST 2024 Heart Rate 88.00 /min MonFeb 26 10:03 :38 EST 2024 Systolic Blood Pressure 96.00 mm[Hg] MonFeb 25 23:32:07 EST 2024 Diastolic Blood Pressure 56.00 mm[Hg] MonFeb 25 23:32:07 EST 2024 Pulse Oximetry 96.00 % MonFeb 25 23:32 :07 EST 2024 Heart Rate 87.00 /min MonFeb 25 23:32 :07 EST 2024 Respiratory rate 20.00 /min MonFeb 25 23:3 2:07 EST 2024 Body temperature 98.20 [degF] MonFeb 25 23:3 2:07 EST 2024 Systolic Blood Pressure 96.00 mm[Hg] MonFeb 25 22:03:14 EST 2024 Diastolic Blood Pressure 56.00 mm[Hg] MonFeb 25 22:03:14 EST 2024 Heart Rate 87.00 /min MonFeb 25 22:03 :14 EST 2024 Body weight 207.40 [lb_av] MonFeb 25 10:59 :16 EST 2024 Systolic Blood Pressure 129.00 mm[Hg] MonFeb 25 08:44:39 EST 2024 Diastolic Blood Pressure 80.00 mm[Hg] MonFeb 25 08:44:39 EST 2024 Systolic Blood Pressure 129.00 mm[Hg] MonFeb 25 08:44:39 EST 2024 Diastolic Blood Pressure 80.00 mm[Hg] MonFeb 25 08:44:39 EST 2024 Heart Rate 98.00 /min MonFeb 25 08:44 :39 EST 2024 Heart Rate 98.00 /min MonFeb 25 08:44 :39 EST 2024 Systolic Blood Pressure 129.00 mm[Hg] MonFeb 25 08:43:23 EST 2024 Diastolic Blood Pressure 80.00 mm[Hg] MonFeb 25 08:43:23 EST 2024 Pulse Oximetry 99.00 % MonFeb 25 08:43 :23 EST 2024 Heart Rate 98.00 /min MonFeb 25 08:43 :23 EST 2024 Respiratory rate 20.00 /min MonFeb 25 08:4 3:23 EST 2024 Body temperature 98.00 [degF] MonFeb 25 08:4 3:23 EST 2024 Systolic Blood Pressure 99.00 mm[Hg] [facility] Feb 24 23:52:03 EST 2024 Diastolic Blood Pressure 57.00 mm[Hg] MonFeb 24 23:52:03 EST 2024 Pulse Oximetry 98.00 % MonFeb 24 23:52 :03 EST 2024 Heart Rate 83.00 /min MonFeb 24 23:52 :03 EST 2024 Respiratory rate 18.00 /min MonFeb 24 23:5 2:03 EST 2024 Body temperature 98.20 [degF] MonFeb 24 23:5 2:03 EST 2024 Systolic Blood Pressure 99.00 mm[Hg] MonFeb 24 22:07:29 EST 2024 Diastolic Blood Pressure 57.00 mm[Hg] MonFeb 24 22:07:29 EST 2024 Heart Rate 83.00 /min MonFeb 24 22:07 :29 EST 2024 Body weight 210.00 [lb_av] MonFeb 24 11:02 :24 EST 2024 Systolic Blood Pressure 122.00 mm[Hg] MonFeb 24 09:28:25 EST 2024 Diastolic Blood Pressure 64.00 mm[Hg] MonFeb 24 09:28:25 EST 2024 Systolic Blood Pressure 122.00 mm[Hg] MonFeb 24 09:28:25 EST 2024 Diastolic Blood Pressure 64.00 mm[Hg] MonFeb 24 09:28:25 EST 2024 Systolic Blood Pressure 122.00 mm[Hg] MonFeb 24 09:28:25 EST 2024 Diastolic Blood Pressure 64.00 mm[Hg] Sun Feb 24 09:28:25 EST 2024 Pulse Oximetry 98.00 % Sun Feb 24 09:28 :25 EST 2024 Heart Rate 66.00 /min MonFeb 24:28 :25 EST 2024 Respiratory rate 18.00 /min MonFeb 24 09:2 8:25 EST 2024 Body temperature 98.10 [degF] Sun Feb 24 09:2 8:25 EST 2024 Heart Rate 66.00 /min Sun Feb 24 09:28 :25 EST 2024 Heart Rate 66.00 /min Sun Feb 24 09:28 :25 EST 2024 Systolic Blood Pressure 91.00 mm[Hg] Sat Feb 23 23:14:23 EST 2024 Diastolic Blood Pressure 55.00 mm[Hg] Sat Feb 23 23:14:23 EST 2024 Pulse Oximetry 94.00 % [facility] Feb 23 23:14 :23 EST 2024 Heart Rate 79.00 /min Sat Feb 23 23:14 :23 EST 2024 Respiratory rate 18.00 /min [facility] Feb 23 23:1 4:23 EST 2024 Body temperature 98.50 [degF] [facility] Feb 23 23:1 4:23 EST 2024 Systolic Blood Pressure 91.00 mm[Hg] Sat Feb 23 21:49:38 EST 2024 Diastolic Blood Pressure 55.00 mm[Hg] Sat Feb 23 21:49:38 EST 2024 Heart Rate 79.00 /min Sat Feb 23 21:49 :38 EST 2024 Systolic Blood Pressure 126.00 mm[Hg] Sat Feb 23 12:16:22 EST 2024 Diastolic Blood Pressure 75.00 mm[Hg] Sat Feb 23 12:16:22 EST 2024 Pulse Oximetry 96.00 % Sat Feb 23 12:16 :22 EST 2024 Heart Rate 86.00 /min Sat Feb 23 12:16 :22 EST 2024 Respiratory rate 20.00 /min Sat Feb 23 12:1 6:22 EST 2024 Body temperature 98.20 [degF] Sat Feb 23 12:1 6:22 EST 2024 Systolic Blood Pressure 126.00 mm[Hg] Sat Feb 23 10:36:03 EST 2024 Diastolic Blood Pressure 75.00 mm[Hg] Sat Feb 23 10:36:03 EST 2024 Systolic Blood Pressure 126.00 mm[Hg] Sat Feb 23 10:36:03 EST 2024 Diastolic Blood Pressure 75.00 mm[Hg] Sat [facility] 18 10:36:03 EST 2024 Heart Rate 86.00 /min MonFeb 23 10:36 :03 EST 2024 Heart Rate 86.00 /min MonFeb 23 10:36 :03 EST 2024 Systolic Blood Pressure 96.00 mm[Hg] MonFeb 23 00:30:35 EST 2024 Diastolic Blood Pressure 49.00 mm[Hg] MonFeb 23 00:30:35 EST 2024 Pulse Oximetry 95.00 % MonFeb 23 00:30 :35 EST 2024 Heart Rate 90.00 /min MonFeb 23 00:30 :35 EST 2024 Respiratory rate 20.00 /min MonFeb 23 00:3 0:35 EST 2024 Body temperature 97.80 [degF] MonFeb 23 00:3 0:35 EST 2024 Systolic Blood Pressure 96.00 mm[Hg] MonFeb 22 20:43:42 EST 2024 Diastolic Blood Pressure 49.00 mm[Hg] MonFeb 22 20:43:42 EST 2024 Heart Rate 90.00 /min MonFeb 22 20:43 :42 EST 2024 Systolic Blood Pressure 120.00 mm[Hg] MonFeb 22 11:01:31 EST 2024 Diastolic Blood Pressure 70.00 mm[Hg] MonFeb 22 11:01:31 EST 2024 Body weight 211.60 [lb_av] MonFeb 22 11:01 :31 EST 2024 Pulse Oximetry 97.00 % MonFeb 22 11:01 :31 EST 2024 Heart Rate 99.00 /min MonFeb 22 11:01 :31 EST 2024 Respiratory rate 18.00 /min MonFeb 22 11:0 1:31 EST 2024 Body temperature 98.20 [degF] MonFeb 22 11:0 1:31 EST 5 Systolic Blood Pressure 120.00 mm[Hg] MonFeb 22 10:02:19 EST 2024 Diastolic Blood Pressure 70.00 mm[Hg] MonFeb 22 10:02:19 EST 2024 Systolic Blood Pressure 120.00 mm[Hg] MonFeb 22 10:02:19 EST 2024 Diastolic Blood Pressure 70.00 mm[Hg] MonFeb 22 10:02:19 EST 2024 Heart Rate 99.00 /min MonFeb 22 10:02 :19 EST 2024 Heart Rate 99.00 /min MonFeb 22 10:02 :19 EST 2024 Systolic Blood Pressure 98.00 mm[Hg] [facility] Feb 21 23:05:42 EST 2024 Diastolic Blood Pressure 58.00 mm[Hg] [facility] Feb 21 23:05:42 EST 2024 Pulse Oximetry 95.00 % MonFeb 21 23:05 :42 2024 Heart Rate 73.00 /min MonFeb 21 23:05 :42 2024 Respiratory rate 18.00 /min [facility] Feb 21 23:0 5:42 2024 Body temperature 98.30 [degF] MonFeb 21 23:0 5:42 EST 2024 Systolic Blood Pressure 98.00 mm[Hg] MonFeb 21 21:47:57 EST 2024 Diastolic Blood Pressure 58.00 mm[Hg] [facility] Feb 21 21:47:57 EST 2024 Heart Rate 73.00 /min [facility] Feb 21 21:47 :57 2024 Body weight 207.60 [lb_av] [facility] Feb 21 16:38 :34 EST 2024 Systolic Blood Pressure 95.00 mm[Hg] [facility] Feb 21 09:53:30 2024 Diastolic Blood Pressure 54.00 mm[Hg] [facility] Feb 21 09:53:30 2024 Systolic Blood Pressure 95.00 mm[Hg] [facility] Feb 21 09:53:30 2024 Diastolic Blood Pressure 54.00 mm[Hg] [facility] Feb 21 09:53:30 2024 Systolic Blood Pressure 95.00 mm[Hg] [facility] Feb 21 09:53:30 2024 Diastolic Blood Pressure 54.00 mm[Hg] [facility] Feb 21 09:53:30 2024 Pulse Oximetry 99.00 % [facility] Feb 21 09:53 :30 2024 Heart Rate 83.00 /min MonFeb 21 09:53 :30 2024 Respiratory rate 20.00 /min [facility] Feb 21 09:5 3:30 2024 Body temperature 98.60 [degF] [facility] Feb 21 09:5 3:30 EST 2024 Heart Rate 83.00 /min MonFeb 21 09:53 :30 2024 Heart Rate 83.00 /min [facility] Feb 21 09:53 :30 2024 Systolic Blood Pressure 97.00 mm[Hg] [facility] Feb 21 01:27:56 2024 Diastolic Blood Pressure 54.00 mm[Hg] [facility] Feb 21 01:27:56 EST 2024 Pulse Oximetry 97.00 % MonFeb 21 01:27 :56 EST 2024 Heart Rate 69.00 /min MonFeb 21 01:27 :56 EST 2024 Respiratory rate 20.00 /min MonFeb 21 01:2 7:56 EST 2024 Body temperature 98.20 [degF] MonFeb 21 01:2 7:56 EST 2024 Systolic Blood Pressure 97.00 mm[Hg] MonFeb 20 21:26:18 EST 2024 Diastolic Blood Pressure 54.00 mm[Hg] MonFeb 20 21:26:18 EST 2024 Heart Rate 69.00 /min MonFeb 20 21:26 :18 EST 2024 Body weight 208.40 [lb_av] MonFeb 20 14:51 :33 EST 2024 Systolic Blood Pressure 121.00 mm[Hg] MonFeb 20 09:24:44 EST 2024 Diastolic Blood Pressure 75.00 mm[Hg] MonFeb 20 09:24:44 EST 2024 Systolic Blood Pressure 121.00 mm[Hg] MonFeb 20 09:24:44 EST 2024 Diastolic Blood Pressure 75.00 mm[Hg] MonFeb 20 09:24:44 EST 2024 Systolic Blood Pressure 121.00 mm[Hg] MonFeb 20 09:24:44 EST 2024 Diastolic Blood Pressure 75.00 mm[Hg] MonFeb 20 09:24:44 EST 2024 Pulse Oximetry 96.00 % MonFeb 20 09:24 :44 EST 2024 Heart Rate 107.00 /min MonFeb 20 09:24 :44 EST 2024 Respiratory rate 20.00 /min MonFeb 20 09:2 4:44 EST 2024 Body temperature 98.00 [degF] MonFeb 20 09:2 4:44 EST 2024 Heart Rate 107.00 /min MonFeb 20 09:24 :44 EST 2024 Heart Rate 107.00 /min MonFeb 20 09:24 :44 EST 2024 Systolic Blood Pressure 92.00 mm[Hg] MonFeb 19 23:28:37 EST 2024 Diastolic Blood Pressure 47.00 mm[Hg] MonFeb 19 23:28:37 EST 2024 Pulse Oximetry 97.00 % MonFeb 19 23:28 :37 EST 2024 Heart Rate 87.00 /min MonFeb 19 23:28 :37 EST 2024 Respiratory rate 18.00 /min MonFeb 19 23:2 8:37 EST 2024 Body temperature 98.10 [degF] MonFeb 19 23:2 8:37 EST 2024 Systolic Blood Pressure 92.00 mm[Hg] MonFeb 19 21:55:40 EST 2024 Diastolic Blood Pressure 47.00 mm[Hg] MonFeb 19 21:55:40 EST 2024 Heart Rate 87.00 /min MonFeb 19 21:55 :40 EST 2024 Body weight 210.80 [lb_av] MonFeb 19 10:23 :31 EST 2024 Systolic Blood Pressure 102.00 mm[Hg] MonFeb 19 10:20:31 EST 2024 Diastolic Blood Pressure 66.00 mm[Hg] MonFeb 19 10:20:31 EST 2024 Pulse Oximetry 95.00 % MonFeb 19 10:20 :31 EST 2024 Heart Rate 94.00 /min MonFeb 19 10:20 :31 EST 2024 Respiratory rate 18.00 /min MonFeb 19 10:2 0:31 2024 Body temperature 98.10 [degF] MonFeb 19 10:2 0:31 2024 Systolic Blood Pressure 102.00 mm[Hg] MonFeb 19 09:19:30 EST 2024 Diastolic Blood Pressure 66.00 mm[Hg] MonFeb 19 09:19:30 EST 2024 Systolic Blood Pressure 102.00 mm[Hg] MonFeb 19 09:19:30 2024 Diastolic Blood Pressure 66.00 mm[Hg] MonFeb 19 09:19:30 2024 Heart Rate 94.00 /min MonFeb 19 09:19 :30 2024 Heart Rate 94.00 /min MonFeb 19 09:19 :30 EST 2024 Systolic Blood Pressure 94.00 mm[Hg] MonFeb 19 00:15:37 EST 2024 Diastolic Blood Pressure 55.00 mm[Hg] MonFeb 19 00:15:37 EST 2024 Pulse Oximetry 96.00 % MonFeb 19 00:15 :37 EST 2024 Heart Rate 72.00 /min MonFeb 19 00:15 :37 EST 2024 Respiratory rate 16.00 /min MonFeb 19 00:1 5:37 EST 2024 Body temperature 98.60 [degF] MonFeb 19 00:1 5:37 EST 2024 Systolic Blood Pressure 94.00 mm[Hg] MonFeb 18 22:02:43 EST 2024 Diastolic Blood Pressure 55.00 mm[Hg] MonFeb 18 22:02:43 EST 2024 Heart Rate 72.00 /min MonFeb 18 22:02 :43 EST 2024 Body weight 212.20 [lb_av] MonFeb 18 13:35 :01 EST 2024 Systolic Blood Pressure 137.00 mm[Hg] MonFeb 18 11:04:53 EST 2024 Diastolic Blood Pressure 68.00 mm[Hg] MonFeb 18 11:04:53 EST 2024 Pulse Oximetry 97.00 % MonFeb 18 11:04 :53 EST 2024 Heart Rate 66.00 /min MonFeb 18 11:04 :53 EST 2024 Respiratory rate 18.00 /min MonFeb 18 11:0 4:53 EST 2024 Body temperature 97.90 [degF] MonFeb 18 11:0 4:53 EST 2024 Systolic Blood Pressure 137.00 mm[Hg] MonFeb 18 09:31:42 EST 2024 Diastolic Blood Pressure 68.00 mm[Hg] MonFeb 18 09:31:42 EST 2024 Systolic Blood Pressure 137.00 mm[Hg] MonFeb 18 09:31:42 EST 2024 Diastolic Blood Pressure 68.00 mm[Hg] MonFeb 18 09:31:42 EST 2024 Heart Rate 66.00 /min MonFeb 18 09:31 :42 EST 2024 Heart Rate 66.00 /min MonFeb 18 09:31 :42 EST 2024 Systolic Blood Pressure 100.00 mm[Hg] MonFeb 18 00:37:28 EST 2024 Diastolic Blood Pressure 57.00 mm[Hg] MonFeb 18 00:37:28 EST 2024 Pulse Oximetry 95.00 % MonFeb 18 00:37 :28 EST 2024 Heart Rate 86.00 /min MonFeb 18 00:37 :28 EST 2024 Respiratory rate 18.00 /min MonFeb 18 00:3 7:28 EST 2024 Body temperature 98.50 [degF] MonFeb 18 00:3 7:28 EST 2024 Systolic Blood Pressure 100.00 mm[Hg] MonFeb 17 21:04:23 EST 2024 Diastolic Blood Pressure 57.00 mm[Hg] MonFeb 17 21:04:23 EST 2024 Heart Rate 86.00 /min MonFeb 17 21:04 :23 EST 2024 Systolic Blood Pressure 119.00 mm[Hg] MonFeb 17 09:27:46 EST 2024 Diastolic Blood Pressure 70.00 mm[Hg] MonFeb 17:27:46 EST 2024 Systolic Blood Pressure 119.00 mm[Hg] [facility] Feb 17 09:27:46 EST 2024 Diastolic Blood Pressure 70.00 mm[Hg] [facility] Feb 17 09:27:46 EST 2024 Systolic Blood Pressure 119.00 mm[Hg] MonFeb 17 09:27:46 EST 2024 Diastolic Blood Pressure 70.00 mm[Hg] [facility] Feb 17 09:27:46 EST 2024 Pulse Oximetry 97.00 % [facility] Feb 17 09:27 :46 EST 2024 Heart Rate 86.00 /min [facility] Feb 17 09:27 :46 EST 2024 Respiratory rate 20.00 /min [facility] Feb 17 09:2 7:46 EST 2024 Body temperature 98.20 [degF] [facility] Feb 17 09:2 7:46 EST 2024 Heart Rate 86.00 /min [facility] Feb 17 09:27 :46 EST 2024 Heart Rate 86.00 /min [facility] Feb 17 09:27 :46 EST 2024 Systolic Blood Pressure 109.00 mm[Hg] [facility] Feb 17 00:12:13 EST 2024 Diastolic Blood Pressure 54.00 mm[Hg] [facility] Feb 17 00:12:13 EST 2024 Pulse Oximetry 96.00 % [facility] Feb 17 00:12 :13 EST 2024 Heart Rate 80.00 /min [facility] Feb 17 00:12 :13 EST 2024 Respiratory rate 18.00 /min [facility] Feb 17 00:1 2:13 EST 2024 Body temperature 98.30 [degF] [facility] Feb 17 00:1 2:13 EST 2024 Systolic Blood Pressure 109.00 mm[Hg] MonFeb 16 22:13:26 EST 2024 Diastolic Blood Pressure 54.00 mm[Hg] MonFeb 16 22:13:26 EST 2024 Heart Rate 80.00 /min MonFeb 16 22:13 :26 EST 2024 Systolic Blood Pressure 122.00 mm[Hg] MonFeb 16 16:00:23 EST 2024 Diastolic Blood Pressure 78.00 mm[Hg] MonFeb 16 16:00:23 EST 2024 Pulse Oximetry 98.00 % [facility] Feb 16 16:00 :23 EST 2024 Heart Rate 82.00 /min [facility] Feb 16 16:00 :23 EST 2024 Respiratory rate 18.00 /min [facility] Feb 16 16:0 0:23 EST 2024 Body temperature 98.00 [degF] [facility] Feb 16 16:0 0:23 EST 2024 Systolic Blood Pressure 122.00 mm[Hg] MonFeb 16 09:14:21 EST 2024 Diastolic Blood Pressure 78.00 mm[Hg] MonFeb 16 09:14:21 EST 2024 Systolic Blood Pressure 122.00 mm[Hg] MonFeb 16 09:14:21 EST 2024 Diastolic Blood Pressure 78.00 mm[Hg] MonFeb 16 09:14:21 EST 2024 Heart Rate 82.00 /min MonFeb 16 09:14 :21 EST 2024 Heart Rate 82.00 /min MonFeb 16 09:14 :21 EST 2024 Systolic Blood Pressure 88.00 mm[Hg] MonFeb 16 00:29:31 EST 2024 Diastolic Blood Pressure 51.00 mm[Hg] MonFeb 16 00:29:31 EST 2024 Pulse Oximetry 97.00 % [facility] Feb 16 00:29 :31 EST 2024 Heart Rate 84.00 /min MonFeb 16 00:29 :31 EST 2024 Respiratory rate 18.00 /min MonFeb 16 00:2 9:31 EST 2024 Body temperature 98.00 [degF] MonFeb 16 00:2 9:31 EST 2024 Systolic Blood Pressure 113.00 mm[Hg] MonFeb 15 11:46:07 EST 2024 Diastolic Blood Pressure 63.00 mm[Hg] MonFeb 15 11:46:07 EST 2024 Pulse Oximetry 96.00 % MonFeb 15 11:46 :07 EST 2024 Heart Rate 96.00 /min MonFeb 15 11:46 :07 EST 2024 Respiratory rate 18.00 /min MonFeb 15 11:4 6:07 EST 2024 Body temperature 98.00 [degF] MonFeb 15 11:4 6:07 EST 2024 Systolic Blood Pressure 113.00 mm[Hg] MonFeb 15 11:32:15 EST 2024 Diastolic Blood Pressure 63.00 mm[Hg] MonFeb 15 11:32:15 EST 2024 Systolic Blood Pressure 113.00 mm[Hg] MonFeb 15 11:32:15 EST 2024 Diastolic Blood Pressure 63.00 mm[Hg] MonFeb 15 11:32:15 EST 5 Heart Rate 99.00 /min MonFeb 15 11:32 :15 EST 2024 Heart Rate 99.00 /min MonFeb 15 11:32 :15 EST 2024 Systolic Blood Pressure 93.00 mm[Hg] [facility] Feb 14 23:23:13 EST 2025 Diastolic Blood Pressure 58.00 mm[Hg] MonFeb 14 23:23:13 EST 2024 Pulse Oximetry 95.00 % MonFeb 14 23:23 :13 EST 2024 Heart Rate 85.00 /min MonFeb 14 23:23 :13 EST 2024 Respiratory rate 18.00 /min MonFeb 14 23:2 3:13 2024 Body temperature 98.30 [degF] MonFeb 14 23:2 3:13 EST 2024 Systolic Blood Pressure 93.00 mm[Hg] MonFeb 14 21:40:28 EST 2024 Diastolic Blood Pressure 58.00 mm[Hg] MonFeb 14 21:40:28 EST 2024 Heart Rate 89.00 /min [facility] Feb 14 21:40 :28 EST 2024 Systolic Blood Pressure 116.00 mm[Hg] MonFeb 14 10:41:47 EST 2024 Diastolic Blood Pressure 72.00 mm[Hg] MonFeb 14 10:41:47 EST 2024 Body weight 213.60 [lb_av] MonFeb 14 10:41 :47 EST 2024 Pulse Oximetry 94.00 % [facility] Feb 14 10:41 :47 EST 2024 Heart Rate 111.00 /min MonFeb 14 10:41 :47 EST 2024 Respiratory rate 18.00 /min [facility] Feb 14 10:4 1:47 EST 2024 Body temperature 97.30 [degF] MonFeb 14 10:4 1:47 EST 2024 Systolic Blood Pressure 116.00 mm[Hg] MonFeb 14 09:23:37 EST 2024 Diastolic Blood Pressure 72.00 mm[Hg] [facility] Feb 14 09:23:37 EST 2024 Systolic Blood Pressure 116.00 mm[Hg] MonFeb 14 09:23:37 EST 2024 Diastolic Blood Pressure 72.00 mm[Hg] [facility] Feb 14 09:23:37 EST 2024 Heart Rate 111.00 /min MonFeb 14 09:23 :37 EST 2024 Heart Rate 111.00 /min [facility] Feb 14 09:23 :37 EST 2024 Systolic Blood Pressure 101.00 mm[Hg] [facility] Feb 14 01:01:57 EST 2024 Diastolic Blood Pressure 59.00 mm[Hg] [facility] Feb 14 01:01:57 EST 2024 Pulse Oximetry 96.00 % [facility] Feb 14 01:01 :57 EST 2025 Heart Rate 88.00 /min MonFeb 14 01:01 :57 EST 5 Respiratory rate 18.00 /min MonFeb 14 01:0 1:57 EST 2024 Body temperature 98.20 [degF] MonFeb 14 01:0 1:57 EST 5 Systolic Blood Pressure 101.00 mm[Hg] MonFeb 13 21:13:59 EST 2024 Diastolic Blood Pressure 59.00 mm[Hg] MonFeb 13 21:13:59 EST 2024 Heart Rate 88.00 /min MonFeb 13 21:13 :59 EST 2024 Body weight 213.40 [lb_av] MonFeb 13 16:35 :45 EST 2024 Systolic Blood Pressure 130.00 mm[Hg] MonFeb 13 13:42:23 EST 2024 Diastolic Blood Pressure 69.00 mm[Hg] MonFeb 13 13:42:23 EST 2024 Pulse Oximetry 98.00 % MonFeb 13 13:42 :23 EST 2024 Heart Rate 93.00 /min MonFeb 13 13:42 :23 EST 2024 Respiratory rate 18.00 /min MonFeb 13 13:4 2:23 EST 2024 Body temperature 98.00 [degF] MonFeb 13 13:4 2:23 EST 2024 Systolic Blood Pressure 130.00 mm[Hg] MonFeb 13 09:59:03 EST 2024 Diastolic Blood Pressure 69.00 mm[Hg] MonFeb 13 09:59:03 EST 2024 Systolic Blood Pressure 130.00 mm[Hg] MonFeb 13 09:59:03 EST 2024 Diastolic Blood Pressure 69.00 mm[Hg] MonFeb 13 09:59:03 EST 2024 Heart Rate 93.00 /min MonFeb 13 09:59 :03 EST 2024 Heart Rate 93.00 /min MonFeb 13 09:59 :03 EST 2024 Systolic Blood Pressure 98.00 mm[Hg] MonFeb 13 01:16:05 EST 2024 Diastolic Blood Pressure 55.00 mm[Hg] MonFeb 13 01:16:05 EST 2024 Pulse Oximetry 95.00 % MonFeb 13 01:16 :05 EST 2024 Heart Rate 71.00 /min MonFeb 13 01:16 :05 EST 5 Respiratory rate 18.00 /min MonFeb 13 01:1 6:05 EST 2024 Body temperature 98.70 [degF] MonFeb 13 01:1 6:05 EST 2024 Systolic Blood Pressure 98.00 mm[Hg] MonFeb 12 20:50:07 EST 2024 Diastolic Blood Pressure 55.00 mm[Hg] MonFeb 12 20:50:07 EST 2024 Heart Rate 71.00 /min MonFeb 12 20:50 :07 EST 2024 Body weight 216.20 [lb_av] MonFeb 12 10:44 :51 EST 2024 Systolic Blood Pressure 122.00 mm[Hg] MonFeb 12 09:30:21 EST 2024 Diastolic Blood Pressure 59.00 mm[Hg] MonFeb 12 09:30:21 EST 2024 Systolic Blood Pressure 122.00 mm[Hg] MonFeb 12 09:30:21 EST 2024 Diastolic Blood Pressure 59.00 mm[Hg] MonFeb 12 09:30:21 EST 2024 Heart Rate 87.00 /min MonFeb 12 09:30 :21 EST 2024 Heart Rate 87.00 /min MonFeb 12 09:30 :21 EST 2024 Systolic Blood Pressure 122.00 mm[Hg] MonFeb 12 08:31:40 EST 2024 Diastolic Blood Pressure 59.00 mm[Hg] MonFeb 12 08:31:40 EST 2024 Pulse Oximetry 97.00 % MonFeb 12 08:31 :40 EST 2024 Heart Rate 87.00 /min MonFeb 12 08:31 :40 EST 2024 Respiratory rate 19.00 /min MonFeb 12 08:3 1:40 EST 2024 Body temperature 98.00 [degF] MonFeb 12 08:3 1:40 EST 2024 Systolic Blood Pressure 104.00 mm[Hg] MonFeb 11 22:58:40 EST 2024 Diastolic Blood Pressure 57.00 mm[Hg] MonFeb 11 22:58:40 EST 2024 Pulse Oximetry 96.00 % MonFeb 11 22:58 :40 EST 2024 Heart Rate 82.00 /min MonFeb 11 22:58 :40 EST 2024 Respiratory rate 18.00 /min MonFeb 11 22:5 8:40 EST 2024 Body temperature 97.50 [degF] MonFeb 11 22:5 8:40 EST 2024 Systolic Blood Pressure 104.00 mm[Hg] MonFeb 11 21:51:57 EST 2024 Diastolic Blood Pressure 57.00 mm[Hg] MonFeb 11 21:51:57 EST 2024 Heart Rate 82.00 /min MonFeb 11 21:51 :57 EST 2024 Body weight 214.60 [lb_av] MonFeb 11 13:57 :17 EST 2024 Systolic Blood Pressure 109.00 mm[Hg] MonFeb 11 09:03:21 EST 2024 Diastolic Blood Pressure 70.00 mm[Hg] MonFeb 11 09:03:21 EST 2024 Systolic Blood Pressure 109.00 mm[Hg] MonFeb 11 09:03:21 EST 2024 Diastolic Blood Pressure 70.00 mm[Hg] MonFeb 11 09:03:21 EST 2024 Systolic Blood Pressure 109.00 mm[Hg] MonFeb 11 09:03:21 EST 2024 Diastolic Blood Pressure 70.00 mm[Hg] MonFeb 11 09:03:21 EST 2024 Pulse Oximetry 94.00 % MonFeb 11 09:03 :21 EST 2024 Heart Rate 94.00 /min MonFeb 11 09:03 :21 EST 2024 Respiratory rate 18.00 /min MonFeb 11 09:0 3:21 EST 2024 Body temperature 97.50 [degF] MonFeb 11 09:0 3:21 EST 2024 Heart Rate 94.00 /min MonFeb 11 09:03 :21 EST 2024 Heart Rate 94.00 /min MonFeb 11 09:03 :21 EST 2024 Systolic Blood Pressure 104.00 mm[Hg] MonFeb 11 00:09:17 EST 2024 Diastolic Blood Pressure 57.00 mm[Hg] MonFeb 11 00:09:17 EST 2024 Pulse Oximetry 93.00 % MonFeb 11 00:09 :17 EST 2024 Heart Rate 75.00 /min MonFeb 11 00:09 :17 EST 2024 Respiratory rate 18.00 /min MonFeb 11 00:0 9:17 EST 2024 Body temperature 97.30 [degF] MonFeb 11 00:0 9:17 EST 2024 Systolic Blood Pressure 104.00 mm[Hg] Basom Feb 10 21:47:12 EST 2024 Diastolic Blood Pressure 57.00 mm[Hg] MonFeb 10 21:47:12 EST 2024 Heart Rate 75.00 /min MonFeb 10 21:47 :12 EST 2024 Systolic Blood Pressure 97.00 mm[Hg] Basom Feb 10 12:13:21 EST 2024 Diastolic Blood Pressure 62.00 mm[Hg] Basom Feb 10 12:13:21 EST 2024 Pulse Oximetry 95.00 % Basom Feb 10 12:13 :21 EST 2024 Heart Rate 86.00 /min Basom Feb 10 12:13 :21 EST 2024 Respiratory rate 16.00 /min Basom Feb 10 12:1 3:21 EST 2024 Body temperature 97.50 [degF] Basom Feb 10 12:1 3:21 EST 2024 Systolic Blood Pressure 97.00 mm[Hg] Basom Feb 10 09:04:09 EST 2024 Diastolic Blood Pressure 62.00 mm[Hg] Basom Feb 10 09:04:09 EST 2024 Systolic Blood Pressure 97.00 mm[Hg] [facility] Feb 10 09:04:09 EST 2024 Diastolic Blood Pressure 62.00 mm[Hg] [facility] Feb 10 09:04:09 EST 2024 Heart Rate 86.00 /min [facility] Feb 10 09:04 :09 EST 2024 Heart Rate 86.00 /min [facility] Feb 10 09:04 :09 EST 2024 Systolic Blood Pressure 106.00 mm[Hg] [facility] Feb 09 23:00:01 EST 2024 Diastolic Blood Pressure 69.00 mm[Hg] [facility] Feb 09 23:00:01 EST 2024 Pulse Oximetry 92.00 % [facility] Feb 09 23:00 :01 EST 2024 Heart Rate 84.00 /min [facility] Feb 09 23:00 :01 EST 2024 Respiratory rate 18.00 /min Sat Feb 09 23:0 0:01 EST 2024 Body temperature 97.30 [degF] [facility] Feb 09 23:0 0:01 EST 2024 Systolic Blood Pressure 106.00 mm[Hg] Sat Feb 09 21:43:40 EST 2024 Diastolic Blood Pressure 69.00 mm[Hg] Sat Feb 09 21:43:40 EST 2024 Heart Rate 84.00 /min [facility] Feb 09 21:43 :40 EST 2024 Body weight 211.60 [lb_av] Sat Feb 09 15:11 :51 EST 2024 Systolic Blood Pressure 114.00 mm[Hg] Sat Feb 09 09:02:08 EST 2024 Diastolic Blood Pressure 69.00 mm[Hg] Sat Feb 09 09:02:08 EST 2024 Pulse Oximetry 95.00 % Sat Feb 09 09:02 :08 EST 2024 Heart Rate 86.00 /min Sat Feb 09 09:02 :08 EST 2024 Respiratory rate 18.00 /min Sat Feb 09 09:0 2:08 EST 2024 Body temperature 98.20 [degF] Sat Feb 09 09:0 2:08 EST 2024 Systolic Blood Pressure 104.00 mm[Hg] MonFeb 09 00:37:18 EST 2024 Diastolic Blood Pressure 63.00 mm[Hg] MonFeb 09 00:37:18 EST 2024 Pulse Oximetry 96.00 % MonFeb 09 00:37 :18 EST 2024 Heart Rate 83.00 /min MonFeb 09 00:37 :18 EST 2024 Respiratory rate 18.00 /min MonFeb 09 00:3 7:18 EST 2024 Body temperature 98.20 [degF] MonFeb 09 00:3 7:18 EST 2024 Systolic Blood Pressure 104.00 mm[Hg] MonFeb 08 20:52:06 EST 2024 Diastolic Blood Pressure 63.00 mm[Hg] MonFeb 08 20:52:06 EST 2024 Heart Rate 83.00 /min MonFeb 08 20:52 :06 EST 2024 Systolic Blood Pressure 127.00 mm[Hg] MonFeb 08 11:07:45 EST 2024 Diastolic Blood Pressure 69.00 mm[Hg] MonFeb 08 11:07:45 EST 2024 Body weight 215.20 [lb_av] MonFeb 08 11:07 :45 EST 2024 Pulse Oximetry 98.00 % MonFeb 08 11:07 :45 EST 2024 Heart Rate 93.00 /min MonFeb 08 11:07 :45 EST 2024 Respiratory rate 18.00 /min MonFeb 08 11:0 7:45 EST 2024 Body temperature 98.00 [degF] MonFeb 08 11:0 7:45 EST 2024 Systolic Blood Pressure 127.00 mm[Hg] MonFeb 08 09:25:51 EST 2024 Diastolic Blood Pressure 69.00 mm[Hg] MonFeb 08 09:25:51 EST 2024 Systolic Blood Pressure 127.00 mm[Hg] MonFeb 08 09:25:51 EST 2024 Diastolic Blood Pressure 69.00 mm[Hg] MonFeb 08 09:25:51 EST 2024 Heart Rate 93.00 /min MonFeb 08 09:25 :51 EST 2024 Heart Rate 93.00 /min MonFeb 08 09:25 :51 EST 2024 Systolic Blood Pressure 96.00 mm[Hg] MonFeb 07 20:50:20 EST 2024 Diastolic Blood Pressure 52.00 mm[Hg] MonFeb 07 20:50:20 EST 2024 Systolic Blood Pressure 96.00 mm[Hg] MonFeb 07 20:50:20 2024 Diastolic Blood Pressure 52.00 mm[Hg] MonFeb 07 20:50:20 2024 Pulse Oximetry 98.00 % MonFeb 07 20:50 :20 2024 Heart Rate 72.00 /min MonFeb 07 20:50 :20 2024 Respiratory rate 18.00 /min MonFeb 07 20:5 0:20 2024 Body temperature 98.30 [degF] MonFeb 07 20:5 0:20 2024 Heart Rate 72.00 /min MonFeb 07 20:50 :20 2024 Body weight 212.40 [lb_av] MonFeb 07 17:38 :03 2024 Systolic Blood Pressure 97.00 mm[Hg] MonFeb 07 10:39:25 2024 Diastolic Blood Pressure 57.00 mm[Hg] MonFeb 07 10:39:25 2024 Systolic Blood Pressure 97.00 mm[Hg] MonFeb 07 10:39:25 2024 Diastolic Blood Pressure 57.00 mm[Hg] MonFeb 07 10:39:25 2024 Systolic Blood Pressure 97.00 mm[Hg] MonFeb 07 10:39:25 2024 Diastolic Blood Pressure 57.00 mm[Hg] MonFeb 07 10:39:25 2024 Pulse Oximetry 99.00 % MonFeb 07 10:39 :25 2024 Heart Rate 114.00 /min MonFeb 07 10:39 :25 2024 Respiratory rate 18.00 /min MonFeb 07 10:3 9:25 2024 Body temperature 98.20 [degF] MonFeb 07 10:3 9:25 2024 Heart Rate 114.00 /min MonFeb 07 10:39 :25 2024 Heart Rate 114.00 /min MonFeb 07 10:39 :25 2024 Systolic Blood Pressure 105.00 mm[Hg] MonFeb 06 23:12:18 2024 Diastolic Blood Pressure 61.00 mm[Hg] MonFeb 06 23:12:18 2024 Pulse Oximetry 98.00 % MonFeb 06 23:12 :18 2024 Heart Rate 93.00 /min MonFeb 06 23:12 :18 2024 Respiratory rate 18.00 /min MonFeb 06 23:1 2:18 2024 Body temperature 98.20 [degF] MonFeb 06 23:1 2:18 EST 2024 Systolic Blood Pressure 105.00 mm[Hg] MonFeb 06 22:03:25 EST 2024 Diastolic Blood Pressure 61.00 mm[Hg] MonFeb 06 22:03:25 EST 2024 Heart Rate 93.00 /min MonFeb 06 22:03 :25 EST 2024 Body weight 216.00 [lb_av] MonFeb 06 14:35 :56 EST 2024 Systolic Blood Pressure 92.00 mm[Hg] MonFeb 06 09:41:13 EST 2024 Diastolic Blood Pressure 56.00 mm[Hg] MonFeb 06 09:41:13 EST 2024 Systolic Blood Pressure 92.00 mm[Hg] MonFeb 06 09:41:13 EST 2024 Diastolic Blood Pressure 56.00 mm[Hg] MonFeb 06 09:41:13 EST 2024 Systolic Blood Pressure 92.00 mm[Hg] MonFeb 06 09:41:13 EST 2024 Diastolic Blood Pressure 56.00 mm[Hg] MonFeb 06 09:41:13 EST 2024 Pulse Oximetry 97.00 % MonFeb 06 09:41 :13 EST 2024 Heart Rate 91.00 /min MonFeb 06 09:41 :13 EST 2024 Respiratory rate 18.00 /min MonFeb 06 09:4 1:13 EST 2024 Body temperature 98.20 [degF] MonFeb 06 09:4 1:13 EST 2024 Heart Rate 91.00 /min MonFeb 06 09:41 :13 EST 2024 Heart Rate 91.00 /min MonFeb 06 09:41 :13 EST 2024 Systolic Blood Pressure 100.00 mm[Hg] MonFeb 06 01:15:37 EST 2024 Diastolic Blood Pressure 53.00 mm[Hg] MonFeb 06 01:15:37 EST 2024 Pulse Oximetry 94.00 % MonFeb 06 01:15 :37 EST 2024 Heart Rate 87.00 /min MonFeb 06 01:15 :37 EST 2024 Respiratory rate 18.00 /min MonFeb 06 01:1 5:37 EST 2024 Body temperature 97.40 [degF] MonFeb 06 01:1 5:37 EST 2024 Systolic Blood Pressure 100.00 mm[Hg] MonFeb 05 21:53:00 EST 2023 Diastolic Blood Pressure 53.00 mm[Hg] MonFeb 05 21:53:00 EST 2023 Heart Rate 87.00 /min MonFeb 05 21:53 :00 EST 2023 Body weight 217.00 [lb_av] MonFeb 05 17:18 :09 EST 2023 Systolic Blood Pressure 128.00 mm[Hg] MonFeb 05 10:58:14 EST 2023 Diastolic Blood Pressure 69.00 mm[Hg] MonFeb 05 10:58:14 EST 2023 Pulse Oximetry 96.00 % MonFeb 05 10:58 :14 EST 2023 Heart Rate 82.00 /min MonFeb 05 10:58 :14 EST 4 Respiratory rate 20.00 /min MonFeb 05 10:5 8:14 EST 2023 Body temperature 97.40 [degF] MonFeb 05 10:5 8:14 EST 2023 Systolic Blood Pressure 128.00 mm[Hg] MonFeb 05 10:03:50 EST 2023 Diastolic Blood Pressure 69.00 mm[Hg] MonFeb 05 10:03:50 EST 2023 Systolic Blood Pressure 128.00 mm[Hg] MonFeb 05 10:03:50 EST 2023 Diastolic Blood Pressure 69.00 mm[Hg] MonFeb 05 10:03:50 EST 2023 Heart Rate 82.00 /min MonFeb 05 10:03 :50 EST 2023 Heart Rate 82.00 /min MonFeb 05 10:03 :50 EST 2023 Systolic Blood Pressure 102.00 mm[Hg] MonFeb 05 01:21:16 EST 2023 Diastolic Blood Pressure 64.00 mm[Hg] MonFeb 05 01:21:16 EST 2023 Pulse Oximetry 95.00 % MonFeb 05 01:21 :16 EST 2023 Heart Rate 80.00 /min MonFeb 05 01:21 :16 EST 4 Respiratory rate 20.00 /min MonFeb 05 01:2 1:16 EST 2023 Body temperature 98.20 [degF] MonFeb 05 01:2 1:16 EST 2023 Systolic Blood Pressure 102.00 mm[Hg] MonFeb 04 21:51:51 EST 2023 Diastolic Blood Pressure 64.00 mm[Hg] MonFeb 04 21:51:51 EST 2023 Heart Rate 80.00 /min MonFeb 04 21:51 :51 EST 2023 Body weight 217.40 [lb_av] MonFeb 04 15:36 :13 EST 2024 Body weight 217.40 [lb_av] MonFeb 04 09:22 :53 EST 2023 Systolic Blood Pressure 122.00 mm[Hg] MonFeb 04 09:17:38 EST 2023 Diastolic Blood Pressure 72.00 mm[Hg] MonFeb 04 09:17:38 EST 2023 Systolic Blood Pressure 122.00 mm[Hg] MonFeb 04 09:17:38 EST 2023 Diastolic Blood Pressure 72.00 mm[Hg] MonFeb 04 09:17:38 EST 2023 Heart Rate 70.00 /min MonFeb 04 09:17 :38 EST 2023 Heart Rate 70.00 /min MonFeb 04 09:17 :38 EST 2023 Systolic Blood Pressure 122.00 mm[Hg] MonFeb 04 08:42:29 EST 2023 Diastolic Blood Pressure 72.00 mm[Hg] MonFeb 04 08:42:29 EST 2023 Pulse Oximetry 94.00 % MonFeb 04 08:42 :29 EST 2023 Heart Rate 70.00 /min MonFeb 04 08:42 :29 EST 2023 Respiratory rate 18.00 /min MonFeb 04 08:4 2:29 EST 2023 Body temperature 98.20 [degF] MonFeb 04 08:4 2:29 EST 2023 Systolic Blood Pressure 107.00 mm[Hg] MonFeb 03 20:31:14 EST 2023 Diastolic Blood Pressure 79.00 mm[Hg] MonFeb 03 20:31:14 EST 2023 Systolic Blood Pressure 107.00 mm[Hg] MonFeb 03 20:31:14 EST 2023 Diastolic Blood Pressure 79.00 mm[Hg] MonFeb 03 20:31:14 EST 2023 Pulse Oximetry 98.00 % MonFeb 03 20:31 :14 EST 2023 Heart Rate 88.00 /min MonFeb 03 20:31 :14 EST 2023 Respiratory rate 18.00 /min MonFeb 03 20:3 1:14 EST 2023 Body temperature 98.20 [degF] MonFeb 03 20:3 1:14 EST 2023 Heart Rate 88.00 /min MonFeb 03 20:31 :14 EST 2023 Systolic Blood Pressure 110.00 mm[Hg] MonFeb 03 09:50:15 EST 2023 Diastolic Blood Pressure 57.00 mm[Hg] MonFeb 03 09:50:15 EST 2023 Pulse Oximetry 95.00 % MonFeb 03 09:50 :15 EST 2023 Heart Rate 62.00 /min MonFeb 03 09:50 :15 EST 2023 Respiratory rate 18.00 /min MonFeb 03 09:5 0:15 EST 2023 Body temperature 97.00 [degF] MonFeb 03 09:5 0:15 EST 2023 Systolic Blood Pressure 110.00 mm[Hg] MonFeb 03 09:35:15 EST 2023 Diastolic Blood Pressure 57.00 mm[Hg] MonFeb 03 09:35:15 EST 2023 Systolic Blood Pressure 110.00 mm[Hg] MonFeb 03 09:35:15 EST 2023 Diastolic Blood Pressure 57.00 mm[Hg] MonFeb 03 09:35:15 EST 2023 Heart Rate 62.00 /min MonFeb 03 09:35 :15 EST 2023 Heart Rate 62.00 /min MonFeb 03 09:35 :15 EST 2023 Systolic Blood Pressure 82.00 mm[Hg] MonFeb 03 01:22:16 EST 2023 Diastolic Blood Pressure 48.00 mm[Hg] MonFeb 03 01:22:16 EST 2023 Pulse Oximetry 94.00 % MonFeb 03 01:22 :16 EST 2023 Heart Rate 85.00 /min MonFeb 03 01:22 :16 EST 2023 Respiratory rate 18.00 /min MonFeb 03 01:2 2:16 EST 2023 Body temperature 98.00 [degF] MonFeb 03 01:2 2:16 EST 2023 Systolic Blood Pressure 82.00 mm[Hg] MonFeb 02 21:58:53 EST 2023 Diastolic Blood Pressure 48.00 mm[Hg] MonFeb 02 21:58:53 EST 2023 Heart Rate 68.00 /min MonFeb 02 21:58 :53 EST 2023 Systolic Blood Pressure 106.00 mm[Hg] MonFeb 02 09:55:43 EST 2023 Diastolic Blood Pressure 59.00 mm[Hg] MonFeb 02 09:55:43 EST 2023 Pulse Oximetry 96.00 % MonFeb 02 09:55 :43 EST 2023 Heart Rate 83.00 /min MonFeb 02 09:55 :43 EST 2023 Respiratory rate 18.00 /min MonFeb 02 09:5 5:43 EST 2023 Body temperature 98.30 [degF] MonFeb 02 09:5 5:43 EST 2023 Systolic Blood Pressure 106.00 mm[Hg] MonFeb 02 08:41:26 EST 2023 Diastolic Blood Pressure 59.00 mm[Hg] MonFeb 02 08:41:26 EST 4 Systolic Blood Pressure 106.00 mm[Hg] MonFeb 02 08:41:26 EST 2023 Diastolic Blood Pressure 59.00 mm[Hg] MonFeb 02 08:41:26 EST 2023 Heart Rate 83.00 /min MonFeb 02 08:41 :26 EST 2023 Heart Rate 83.00 /min MonFeb 02 08:41 :26 EST 2023 Systolic Blood Pressure 119.00 mm[Hg] MonFeb 01 20:06:09 EST 2023 Diastolic Blood Pressure 69.00 mm[Hg] MonFeb 01 20:06:09 EST 2023 Systolic Blood Pressure 119.00 mm[Hg] MonFeb 01 20:06:09 EST 2023 Diastolic Blood Pressure 69.00 mm[Hg] MonFeb 01 20:06:09 EST 2023 Pulse Oximetry 95.00 % MonFeb 01 20:06 :09 EST 2023 Heart Rate 89.00 /min MonFeb 01 20:06 :09 EST 2023 Respiratory rate 18.00 /min MonFeb 01 20:0 6:09 EST 2023 Body temperature 97.80 [degF] MonFeb 01 20:0 6:09 EST 2023 Heart Rate 89.00 /min MonFeb 01 20:06 :09 EST 2023 Systolic Blood Pressure 114.00 mm[Hg] MonFeb 01 11:29:37 EST 2023 Diastolic Blood Pressure 64.00 mm[Hg] MonFeb 01 11:29:37 EST 2023 Systolic Blood Pressure 114.00 mm[Hg] MonFeb 01 11:29:37 EST 2023 Diastolic Blood Pressure 64.00 mm[Hg] MonFeb 01 11:29:37 EST 2023 Systolic Blood Pressure 114.00 mm[Hg] MonFeb 01 11:29:37 EST 2023 Diastolic Blood Pressure 64.00 mm[Hg] MonFeb 01 11:29:37 EST 2023 Body weight 218.60 [lb_av] MonFeb 01 11:29 :37 EST 2023 Pulse Oximetry 95.00 % MonFeb 01 11:29 :37 EST 2023 Heart Rate 81.00 /min MonFeb 01 11:29 :37 EST 2023 Respiratory rate 18.00 /min MonFeb 01 11:2 9:37 EST 2023 Body temperature 98.00 [degF] MonFeb 01 11:2 9:37 EST 2023 Heart Rate 81.00 /min MonFeb 01 11:29 :37 EST 2023 Heart Rate 81.00 /min MonFeb 01 11:29 :37 EST 2023 Systolic Blood Pressure 97.00 mm[Hg] MonJan 31 22:48:52 EST 2023 Diastolic Blood Pressure 67.00 mm[Hg] MonJan 31 22:48:52 EST 2023 Pulse Oximetry 96.00 % MonJan 31 22:48 :52 EST 2023 Heart Rate 82.00 /min MonJan 31 22:48 :52 EST 2023 Respiratory rate 18.00 /min MonJan 31 22:4 8:52 EST 2023 Body temperature 98.30 [degF] MonJan 31 22:4 8:52 EST 2023 Systolic Blood Pressure 97.00 mm[Hg] MonJan 31 21:37:34 EST 2023 Diastolic Blood Pressure 67.00 mm[Hg] MonJan 31 21:37:34 EST 2023 Heart Rate 82.00 /min MonJan 31 21:37 :34 EST 2023 Body weight 222.80 [lb_av] MonJan 31 15:55 :40 EST 2023 Systolic Blood Pressure 141.00 mm[Hg] MonJan 31 09:30:13 EST 2023 Diastolic Blood Pressure 90.00 mm[Hg] MonJan 31 09:30:13 EST 2023 Systolic Blood Pressure 141.00 mm[Hg] MonJan 31 09:30:13 EST 2023 Diastolic Blood Pressure 90.00 mm[Hg] MonJan 31 09:30:13 EST 2023 Systolic Blood Pressure 141.00 mm[Hg] MonJan 31 09:30:13 EST 2023 Diastolic Blood Pressure 90.00 mm[Hg] MonJan 31 09:30:13 EST 2023 Pulse Oximetry 97.00 % MonJan 31 09:30 :13 EST 2023 Heart Rate 76.00 /min MonJan 31 09:30 :13 EST 2023 Respiratory rate 18.00 /min MonJan 31 09:3 0:13 EST 2023 Body temperature 97.90 [degF] MonJan 31 09:3 0:13 EST 2023 Heart Rate 76.00 /min MonJan 31 09:30 :13 EST 2023 Heart Rate 76.00 /min MonJan 31 09:30 :13 EST 2023 Systolic Blood Pressure 112.00 mm[Hg] [facility] Jan 30 23:28:29 EST 2024 Diastolic Blood Pressure 55.00 mm[Hg] MonJan 30 23:28:29 EST 2023 Pulse Oximetry 98.00 % MonJan 30 23:28 :29 EST 2023 Heart Rate 84.00 /min MonJan 30 23:28 : EST 4 Respiratory rate 18.00 /min MonJan 30 23:2 8:29 EST 2023 Body temperature 98.30 [degF] MonJan 30 23:2 8:29 EST 4 Systolic Blood Pressure 112.00 mm[Hg] MonJan 30 21:55:04 EST 2024 Diastolic Blood Pressure 55.00 mm[Hg] MonJan 30 21:55:04 EST 2023 Heart Rate 84.00 /min MonJan 30 21:55 :04 EST 2023 Systolic Blood Pressure 92.00 mm[Hg] MonJan 30 10:00:56 EST 2023 Diastolic Blood Pressure 55.00 mm[Hg] MonJan 30 10:00:56 EST 4 Systolic Blood Pressure 92.00 mm[Hg] MonJan 30 10:00:56 EST 2023 Diastolic Blood Pressure 55.00 mm[Hg] MonJan 30 10:00:56 EST 4 Systolic Blood Pressure 92.00 mm[Hg] MonJan 30 10:00:56 EST 4 Diastolic Blood Pressure 55.00 mm[Hg] MonJan 30 10:00:56 EST 2023 Pulse Oximetry 97.00 % MonJan 30 10:00 :56 EST 2023 Heart Rate 78.00 /min MonJan 30 10:00 :56 EST 2023 Respiratory rate 18.00 /min MonJan 30 10:0 0:56 EST 2023 Body temperature 98.00 [degF] MonJan 30 10:0 0:56 EST 4 Heart Rate 78.00 /min MonJan 30 10:00 :56 EST 2023 Heart Rate 78.00 /min MonJan 30 10:00 :56 EST 4 Systolic Blood Pressure 110.00 mm[Hg] MonJan 29 21:59:53 EST 2023 Diastolic Blood Pressure 44.00 mm[Hg] MonJan 29 21:59:53 EST 2023 Pulse Oximetry 96.00 % MonJan 29 21:59 :53 EST 4 Heart Rate 85.00 /min MonJan 29 21:59 :53 EST 4 Respiratory rate 18.00 /min MonJan 29 21:5 9:53 EST 2024 Body temperature 98.30 [degF] MonJan 29 21:5 9:53 EST 2023 Systolic Blood Pressure 110.00 mm[Hg] MonJan 29 20:07:24 EST 2023 Diastolic Blood Pressure 44.00 mm[Hg] MonJan 29 20:07:24 EST 2023 Heart Rate 85.00 /min MonJan 29 20:07 :24 EST 2023 Body weight 223.20 [lb_av] MonJan 29 10:34 :41 EST 2023 Systolic Blood Pressure 130.00 mm[Hg] MonJan 29 10:26:01 EST 2023 Diastolic Blood Pressure 70.00 mm[Hg] MonJan 29 10:26:01 EST 2023 Pulse Oximetry 95.00 % MonJan 29 10:26 :01 EST 2023 Heart Rate 94.00 /min MonJan 29 10:26 :01 EST 2023 Respiratory rate 18.00 /min MonJan 29 10:2 6:01 EST 2023 Body temperature 98.00 [degF] MonJan 29 10:2 6:01 EST 2023 Systolic Blood Pressure 130.00 mm[Hg] MonJan 29 09:23:31 EST 2023 Diastolic Blood Pressure 70.00 mm[Hg] MonJan 29 09:23:31 EST 2023 Systolic Blood Pressure 130.00 mm[Hg] MonJan 29 09:23:31 EST 2023 Diastolic Blood Pressure 70.00 mm[Hg] MonJan 29 09:23:31 EST 2023 Heart Rate 94.00 /min MonJan 29 09:23 :31 EST 2023 Heart Rate 94.00 /min MonJan 29 09:23 :31 EST 2023 Systolic Blood Pressure 110.00 mm[Hg] MonJan 28 22:12:26 EST 2023 Diastolic Blood Pressure 55.00 mm[Hg] MonJan 28 22:12:26 EST 2023 Pulse Oximetry 95.00 % MonJan 28 22:12 :26 EST 2023 Heart Rate 82.00 /min MonJan 28 22:12 :26 EST 2023 Respiratory rate 18.00 /min MonJan 28 22:1 2:26 EST 2023 Body temperature 98.20 [degF] MonJan 28 22:1 2:26 EST 2023 Systolic Blood Pressure 110.00 mm[Hg] MonJan 28 21:51:42 EST 2023 Diastolic Blood Pressure 55.00 mm[Hg] MonJan 28 21:51:42 EST 2023 Heart Rate 82.00 /min MonJan 28 21:51 :42 EST 2023 Body weight 222.00 [lb_av] MonJan 28 17:09 :42 EST 2023 Systolic Blood Pressure 136.00 mm[Hg] MonJan 28 10:15:41 EST 2023 Diastolic Blood Pressure 69.00 mm[Hg] MonJan 28 10:15:41 EST 2023 Systolic Blood Pressure 136.00 mm[Hg] MonJan 28 10:15:41 EST 2023 Diastolic Blood Pressure 69.00 mm[Hg] MonJan 28 10:15:41 EST 2023 Systolic Blood Pressure 136.00 mm[Hg] MonJan 28 10:15:41 EST 2023 Diastolic Blood Pressure 69.00 mm[Hg] MonJan 28 10:15:41 EST 2023 Pulse Oximetry 96.00 % MonJan 28 10:15 :41 EST 2023 Heart Rate 78.00 /min MonJan 28 10:15 :41 EST 2023 Respiratory rate 18.00 /min MonJan 28 10:1 5:41 EST 2023 Body temperature 98.00 [degF] MonJan 28 10:1 5:41 EST 2023 Heart Rate 78.00 /min MonJan 28 10:15 :41 EST 2023 Heart Rate 78.00 /min MonJan 28 10:15 :41 EST 2023 Systolic Blood Pressure 116.00 mm[Hg] MonJan 27 23:06:29 EST 2023 Diastolic Blood Pressure 62.00 mm[Hg] MonJan 27 23:06:29 EST 2023 Pulse Oximetry 98.00 % MonJan 27 23:06 :29 EST 2023 Heart Rate 96.00 /min MonJan 27 23:06 :29 EST 2023 Respiratory rate 16.00 /min MonJan 27 23:0 6:29 EST 2023 Body temperature 98.30 [degF] MonJan 27 23:0 6:29 EST 2023 Systolic Blood Pressure 116.00 mm[Hg] MonJan 27 22:38:24 EST 2023 Diastolic Blood Pressure 62.00 mm[Hg] MonJan 27 22:38:24 EST 2023 Heart Rate 96.00 /min MonJan 27 22:38 :24 EST 2023 Body weight 220.40 [lb_av] MonJan 27 11:47 :34 EST 2023 Systolic Blood Pressure 119.00 mm[Hg] MonJan 27 09:43:02 EST 2023 Diastolic Blood Pressure 81.00 mm[Hg] MonJan 27 09:43:02 EST 2023 Systolic Blood Pressure 119.00 mm[Hg] MonJan 27 09:43:02 EST 2023 Diastolic Blood Pressure 81.00 mm[Hg] MonJan 27 09:43:02 EST 2023 Systolic Blood Pressure 119.00 mm[Hg] MonJan 27 09:43:02 EST 2023 Diastolic Blood Pressure 81.00 mm[Hg] MonJan 27 09:43:02 EST 2023 Body weight 220.40 [lb_av] MonJan 27 09:43 :02 EST 2023 Pulse Oximetry 97.00 % MonJan 27 09:43 :02 EST 2023 Heart Rate 83.00 /min MonJan 27 09:43 :02 EST 2023 Respiratory rate 20.00 /min MonJan 27 09:4 3:02 EST 2023 Body temperature 98.30 [degF] MonJan 27 09:4 3:02 EST 2023 Heart Rate 83.00 /min MonJan 27 09:43 :02 EST 2023 Heart Rate 83.00 /min MonJan 27 09:43 :02 EST 2023 Systolic Blood Pressure 100.00 mm[Hg] MonJan 27 00:40:19 EST 2023 Diastolic Blood Pressure 61.00 mm[Hg] MonJan 27 00:40:19 EST 2023 Pulse Oximetry 98.00 % MonJan 27 00:40 :19 EST 2023 Heart Rate 67.00 /min MonJan 27 00:40 :19 EST 2023 Respiratory rate 20.00 /min MonJan 27 00:4 0:19 EST 2023 Body temperature 97.80 [degF] MonJan 27 00:4 0:19 EST 2023 Systolic Blood Pressure 100.00 mm[Hg] MonJan 26 22:10:54 EST 2023 Diastolic Blood Pressure 61.00 mm[Hg] MonJan 26 22:10:54 EST 2023 Heart Rate 67.00 /min MonJan 26 22:10 :54 EST 2023 Body weight 224.60 [lb_av] MonJan 26 14:58 :39 EST 2023 Systolic Blood Pressure 117.00 mm[Hg] MonJan 26 09:40:04 EST 2023 Diastolic Blood Pressure 67.00 mm[Hg] MonJan 26 09:40:04 EST 2023 Systolic Blood Pressure 117.00 mm[Hg] Sat Dec 09:40:04 EST 4 Diastolic Blood Pressure 67.00 mm[Hg] Mon Dec 09:40:04 EST 2023 Systolic Blood Pressure 117.00 mm[Hg] Mon Dec 09:40:04 EST 2023 Diastolic Blood Pressure 67.00 mm[Hg] MonJan 26 09:40:04 EST 2023 Pulse Oximetry 94.00 % Mon Dec 09:40 :04 EST 2023 Heart Rate 63.00 /min MonJan 26 09:40 :04 EST 2023 Respiratory rate 18.00 /min MonJan 26 09:4 0:04 EST 2023 Body temperature 97.80 [degF] MonJan 26 09:4 0:04 EST 2023 Heart Rate 63.00 /min MonJan 26 09:40 :04 EST 2023 Heart Rate 63.00 /min MonJan 26 09:40 :04 EST 2023 Systolic Blood Pressure 110.00 mm[Hg] MonJan 25 20:10:46 EST 2023 Diastolic Blood Pressure 48.00 mm[Hg] MonJan 25 20:10:46 EST 2023 Systolic Blood Pressure 110.00 mm[Hg] MonJan 25 20:10:46 EST 2023 Diastolic Blood Pressure 48.00 mm[Hg] MonJan 25 20:10:46 EST 2023 Pulse Oximetry 98.00 % MonJan 25 20:10 :46 EST 2023 Heart Rate 85.00 /min MonJan 25 20:10 :46 EST 2023 Respiratory rate 20.00 /min MonJan 25 20:1 0:46 EST 2023 Body temperature 98.20 [degF] MonJan 25 20:1 0:46 EST 2023 Heart Rate 85.00 /min MonJan 25 20:10 :46 EST 2023 Systolic Blood Pressure 150.00 mm[Hg] MonJan 25 11:01:02 EST 2023 Diastolic Blood Pressure 77.00 mm[Hg] MonJan 25 11:01:02 EST 2023 Pulse Oximetry 98.00 % MonJan 25 11:01 :02 EST 2023 Heart Rate 62.00 /min MonJan 25 11:01 :02 EST 2023 Respiratory rate 18.00 /min MonJan 25 11:0 1:02 EST 2023 Body temperature 97.90 [degF] MonJan 25 11:0 1:02 EST 2023 Systolic Blood Pressure 150.00 mm[Hg] MonJan 25:21:24 EST 2023 Diastolic Blood Pressure 77.00 mm[Hg] MonJan 25:21:24 EST 2023 Systolic Blood Pressure 150.00 mm[Hg] MonJan 25::24 EST 2023 Diastolic Blood Pressure 77.00 mm[Hg] MonJan 25::24 EST 4 Heart Rate 62.00 /min MonJan 25: :24 2023 Heart Rate 62.00 /min MonJan 25: :24 EST 2023 Systolic Blood Pressure 113.00 mm[Hg] MonJan 24 23:30:36 EST 2023 Diastolic Blood Pressure 51.00 mm[Hg] MonJan 24 23:30:36 2023 Pulse Oximetry 96.00 % MonJan 24 23:30 :36 2023 Heart Rate 82.00 /min MonJan 24 23:30 :36 2023 Respiratory rate 16.00 /min MonJan 24 23:3 0:36 2023 Body temperature 98.00 [degF] MonJan 24 23:3 0:36 EST 2023 Systolic Blood Pressure 113.00 mm[Hg] MonJan 24 20:51:39 EST 2023 Diastolic Blood Pressure 51.00 mm[Hg] MonJan 24 20:51:39 2023 Heart Rate 82.00 /min MonJan 24 20:51 :39 EST 2023 Body weight 222.80 [lb_av] MonJan 24 15:06 :26 2023 Systolic Blood Pressure 160.00 mm[Hg] MonJan 24 10:08:48 EST 2023 Diastolic Blood Pressure 76.00 mm[Hg] MonJan 24 10:08:48 EST 2023 Systolic Blood Pressure 160.00 mm[Hg] MonJan 24 10:08:48 EST 2023 Diastolic Blood Pressure 76.00 mm[Hg] MonJan 24 10:08:48 EST 2023 Systolic Blood Pressure 160.00 mm[Hg] MonJan 24 10:08:48 EST 2023 Diastolic Blood Pressure 76.00 mm[Hg] MonJan 24 10:08:48 2023 Pulse Oximetry 98.00 % MonJan 24 10:08 :48 2023 Heart Rate 93.00 /min MonJan 24 10:08 :48 EST 2023 Respiratory rate 18.00 /min MonJan 24 10:0 8:48 EST 2023 Body temperature 98.30 [degF] MonJan 24 10:0 8:48 EST 2023 Heart Rate 93.00 /min MonJan 24 10:08 :48 EST 2023 Heart Rate 93.00 /min MonJan 24 10:08 :48 EST 4 Systolic Blood Pressure 109.00 mm[Hg] MonJan 24 00:29:15 EST 2023 Diastolic Blood Pressure 43.00 mm[Hg] MonJan 24 00:29:15 EST 2023 Pulse Oximetry 97.00 % MonJan 24 00:29 :15 EST 2023 Heart Rate 63.00 /min MonJan 24 00:29 :15 EST 2023 Respiratory rate 20.00 /min MonJan 24 00:2 9:15 EST 2023 Body temperature 98.50 [degF] MonJan 24 00:2 9:15 EST 2023 Systolic Blood Pressure 109.00 mm[Hg] MonJan 23 21:29:48 EST 2023 Diastolic Blood Pressure 43.00 mm[Hg] MonJan 23 21:29:48 EST 2023 Heart Rate 63.00 /min MonJan 23 21:29 :48 EST 2023 Body weight 224.80 [lb_av] MonJan 23 13:40 :32 EST 2023 Systolic Blood Pressure 107.00 mm[Hg] MonJan 23 09:13:41 EST 2023 Diastolic Blood Pressure 57.00 mm[Hg] MonJan 23 09:13:41 EST 2023 Heart Rate 80.00 /min MonJan 23 09:13 :41 EST 2023 Systolic Blood Pressure 107.00 mm[Hg] MonJan 23 08:42:35 EST 2023 Diastolic Blood Pressure 57.00 mm[Hg] MonJan 23 08:42:35 EST 2023 Pulse Oximetry 95.00 % MonJan 23 08:42 :35 EST 2023 Heart Rate 80.00 /min MonJan 23 08:42 :35 EST 2023 Respiratory rate 20.00 /min MonJan 23 08:4 2:35 EST 2023 Body temperature 98.30 [degF] MonJan 23 08:4 2:35 EST 2023 Systolic Blood Pressure 100.00 mm[Hg] MonJan 22 22:45:52 EST 2023 Diastolic Blood Pressure 41.00 mm[Hg] MonJan 22 22:45:52 EST 2023 Pulse Oximetry 95.00 % MonJan 22 22:45 :52 EST 2023 Heart Rate 84.00 /min MonJan 22 22:45 :52 EST 2023 Respiratory rate 18.00 /min MonJan 22 22:4 5:52 EST 2023 Body temperature 98.30 [degF] MonJan 22 22:4 5:52 EST 4 Systolic Blood Pressure 100.00 mm[Hg] MonJan 22 21:26:45 EST 2023 Diastolic Blood Pressure 41.00 mm[Hg] MonJan 22 21:26:45 EST 2023 Heart Rate 84.00 /min MonJan 22 21:26 :45 EST 4 Systolic Blood Pressure 102.00 mm[Hg] MonJan 22 11:07:20 EST 2023 Diastolic Blood Pressure 64.00 mm[Hg] MonJan 22 11:07:20 EST 2023 Pulse Oximetry 97.00 % MonJan 22 11:07 :20 EST 2023 Heart Rate 86.00 /min MonJan 22 11:07 :20 EST 2023 Respiratory rate 20.00 /min MonJan 22 11:0 7:20 EST 2023 Body temperature 98.30 [degF] MonJan 22 11:0 7:20 EST 2023 Systolic Blood Pressure 102.00 mm[Hg] MonJan 22 09:20:46 EST 2023 Diastolic Blood Pressure 64.00 mm[Hg] MonJan 22 09:20:46 EST 2023 Systolic Blood Pressure 102.00 mm[Hg] MonJan 22 09:20:46 EST 2023 Diastolic Blood Pressure 64.00 mm[Hg] MonJan 22 09:20:46 EST 2023 Heart Rate 86.00 /min MonJan 22 09:20 :46 EST 2023 Heart Rate 86.00 /min MonJan 22 09:20 :46 EST 4 Systolic Blood Pressure 96.00 mm[Hg] MonJan 21 22:39:17 EST 2023 Diastolic Blood Pressure 66.00 mm[Hg] MonJan 21 22:39:17 EST 2023 Pulse Oximetry 98.00 % MonJan 21 22:39 :17 EST 4 Heart Rate 77.00 /min MonJan 21 22:39 :17 EST 4 Respiratory rate 20.00 /min MonJan 21 22:3 9:17 EST 2023 Body temperature 97.30 [degF] MonJan 21 22:3 9:17 EST 2024 Systolic Blood Pressure 96.00 mm[Hg] MonJan 21 21:55:42 EST 2023 Diastolic Blood Pressure 66.00 mm[Hg] MonJan 21 21:55:42 EST 2023 Heart Rate 86.00 /min MonJan 21 21:55 :42 EST 2023 Systolic Blood Pressure 142.00 mm[Hg] MonJan 21 10:23:11 EST 2023 Diastolic Blood Pressure 68.00 mm[Hg] MonJan 21 10:23:11 EST 2023 Pulse Oximetry 97.00 % MonJan 21 10:23 :11 EST 2023 Heart Rate 79.00 /min MonJan 21 10:23 :11 EST 2023 Respiratory rate 18.00 /min MonJan 21 10:2 3:11 EST 2023 Body temperature 98.20 [degF] MonJan 21 10:2 3:11 EST 2023 Systolic Blood Pressure 142.00 mm[Hg] MonJan 21 09:08:32 EST 2023 Diastolic Blood Pressure 68.00 mm[Hg] MonJan 21 09:08:32 EST 2023 Systolic Blood Pressure 142.00 mm[Hg] MonJan 21 09:08:32 EST 2023 Diastolic Blood Pressure 68.00 mm[Hg] MonJan 21 09:08:32 EST 2023 Heart Rate 79.00 /min MonJan 21 09:08 :32 EST 2023 Heart Rate 79.00 /min MonJan 21 09:08 :32 EST 4 Systolic Blood Pressure 143.00 mm[Hg] MonJan 20 21:02:06 EST 2023 Diastolic Blood Pressure 77.00 mm[Hg] MonJan 20 21:02:06 EST 2023 Systolic Blood Pressure 143.00 mm[Hg] MonJan 20 21:02:06 EST 2023 Diastolic Blood Pressure 77.00 mm[Hg] MonJan 20 21:02:06 EST 2023 Pulse Oximetry 94.00 % MonJan 20 21:02 :06 EST 2023 Heart Rate 72.00 /min MonJan 20 21:02 :06 EST 2023 Respiratory rate 20.00 /min MonJan 20 21:0 2:06 EST 2023 Body temperature 97.00 [degF] MonJan 20 21:0 2:06 EST 2023 Heart Rate 72.00 /min MonJan 20 21:02 :06 EST 2023 Systolic Blood Pressure 102.00 mm[Hg] MonJan 20 09:24:57 EST 2023 Diastolic Blood Pressure 53.00 mm[Hg] MonJan 20 09:24:57 EST 2023 Pulse Oximetry 95.00 % MonJan 20 09:24 :57 EST 2023 Heart Rate 68.00 /min MonJan 20 09:24 :57 EST 2023 Respiratory rate 18.00 /min MonJan 20 09:2 4:57 EST 2023 Body temperature 97.10 [degF] MonJan 20 09:2 4:57 EST 2023 Systolic Blood Pressure 102.00 mm[Hg] MonJan 20 09:18:34 EST 2023 Diastolic Blood Pressure 53.00 mm[Hg] MonJan 20 09:18:34 EST 2023 Systolic Blood Pressure 102.00 mm[Hg] MonJan 20 09:18:34 EST 2023 Diastolic Blood Pressure 53.00 mm[Hg] MonJan 20 09:18:34 EST 2023 Heart Rate 68.00 /min MonJan 20 09:18 :34 EST 2023 Systolic Blood Pressure 96.00 mm[Hg] MonJan 19 21:35:04 EST 2023 Diastolic Blood Pressure 46.00 mm[Hg] MonJan 19 21:35:04 EST 2023 Systolic Blood Pressure 96.00 mm[Hg] MonJan 19 21:35:04 EST 2023 Diastolic Blood Pressure 46.00 mm[Hg] MonJan 19 21:35:04 EST 2023 Pulse Oximetry 97.00 % MonJan 19 21:35 :04 EST 2023 Heart Rate 79.00 /min MonJan 19 21:35 :04 EST 2023 Respiratory rate 24.00 /min MonJan 19 21:3 5:04 EST 2023 Body temperature 98.30 [degF] MonJan 19 21:3 5:04 EST 2023 Systolic Blood Pressure 96.00 mm[Hg] MonJan 19 18:29:00 EST 2023 Diastolic Blood Pressure 46.00 mm[Hg] MonJan 19 18:29:00 EST 2023 Heart Rate 79.00 /min MonJan 19 18:29 :00 EST 2023 Respiratory rate 20.00 /min MonJan 19 18:2 9:00 EST 2023 Pulse Oximetry 97.00 % MonJan 19 18:29 :00 EST 2023 Body weight 231.00 [lb_av] MonJan 19 18:29 :00 EST 2023 Body temperature 98.30 [degF] [facility] Jan 19 18:2 9:00 EST 2023 Body Height 71.00 [in_i] Sat Jan 19 18:29 :00 EST 2023 Reason for Referral Past Medical History Resolved Concerns * Problem Muscle weakness (generalized)* Code: * Start Date: MonSep 30 00:00:00 EDT 2021 * End Date: MonJune 26 00:00:00 EDT 2024
--- OUTSIDE RECORDS SUMMARY | 2024-06-30 19:17 | XMS_ITS | Data Portability ---
Author Organization [place] [employer] [facility] Main Office Address [address] [place] [address] Care Team Providers Care Acute Specialist Name Role Phone NATE LEHMAN Primary Care Provider GCP 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 Pt will need F/U with GI Dr. Jaime for EGD -- Requested nursing f/u with regarding this. charissa Not available 04/24/2024 15:00:04 05/21/2024 05/21/2024 Reduce Pantoprazole to daily. Monitor for S&S of GIB. Reminded staff/pt he needs f/u appt with Dr. Jaime (GI) scheduled as needs f/u EGD. Repeat Hgb with next visit. charissa Not available 05/22/2024 08:44:42 06/25/2024 06/25/2024 fu labs in am - continue PPI therapy GI f/u needed 6-8 weeks [email or web address] Not available 06/26/2024 04:23:17 06/27/2024 06/27/2024 Increase Flonase dosing and move to qhs administration. Labs (CBC, BMP, Mag) on 07/01. F/U with Dr. Jaime (GI) in 6-8 weeks -- nursing to schedule. charissa Not available 06/27/2024 16:30:57 Plan of Treatment Reminders Order Date Submit Date Provider Last Modified By Organization Details Last Modified Time Details Appointments None record ed. Lab None record ed. Referral None record ed. Procedures None record ed. Surgeries None record ed. Imaging None record ed. Medication Orders None record ed. Patient TargetsNo targets recorded. Patient Instructions Encounter Date Encounter Id Patient Instructions Last Modified By Organization Details Last Modified Time 04/24/2024 [id number] I spent {{ 35#}} minutes providing care to the patient today. More than 50% of that time was spent in discussing the expected course of the disease, discussing prognosis, coordinating care and counseling of the patient/family. Not available 04/24/2024 14:58:43 05/21/2024 [id number] I spent {{ 36#}} minutes providing care to the patient today. More than 50% of that time was spent in discussing the expected course of the disease, discussing prognosis, coordinating care and counseling of the patient/family. [email or web address] Not available 05/22/2024 08:42:12 06/18/2024 [id number] I spent {{ 37#}} minutes providing care to the patient today. More than 50% of that time was spent in discussing the expected course of the disease, discussing prognosis, coordinating care and counseling of the patient/family. Not available 06/18/2024 16:17:25 06/25/2024 [id number] I spent {{ 50#}} minutes providing care to the patient today. More than 50% of that time was spent in discussing the expected course of the disease, discussing prognosis, coordinating care and counseling of the patient/family. I spent {{16* 17 18 19 20 21 22 23 24 25}} minutes counseling and discussing advance directives and/or end of life care planning and decisions with the {{patient* surrog ate patient and surrogate}} today. I reviewed the current relevant diagnoses, treatment options, natural history, and prognosis and clarified the patient's goals of care. code status is DNR [email or web address] Not available 06/26/2024 04:33:30 06/27/2024 [id number] I spent {{ 36#}} minutes providing care to the patient today. More than 50% of that time was spent in discussing the expected course of the disease, discussing prognosis, coordinating care and counseling of the patient/family. Not available 06/27/2024 16:31:02 Reason for Referral None Reported. Results Created Date Observation Date Name Description Value Unit Range Abnormal Flag Note LastModifiedBy Organization Detail LastModifiedTime Result Notes None recorded. Procedures Surgical History Date Name Laterality Status Provider Name and Address Organization Details Recorded Time repair of retina for retinal [place] [address] [facility], [place], [address], [facility] 01/23/2024 07:20:45 Imaging Results None recorded. Procedure Notes None recorded. Medical Equipment None Reported. Allergies No known drug allergies Medications Name Sig Start Date Stop Date Status Note LastModified by Organization Details LastModified Time Prescripti on - Renewal 06/27 completed Not Available Not Available Not Available Santyl 250 unit/gram topical ointment Apply 1 applicati on every day by topical route. 06/18 completed Not Available Not Available Not Available latanopros t 0.005 % eye drops Instill 1 drop every day by ophthalmi c route at bedtime. active Not Available Not Available No t Available acetaminop hen 325 mg tablet Take 2 tablets every 4 hours by oral route as needed. 03/10 completed Not Available Not Available Not Available atorvastat in 20 mg tablet Take 1 tablet every day by oral route. active Not Available Not Available No t Available polyethyle ne glycol 3350 17 gram oral powder packet Take 1 packet every day by oral route. active Not Available Not Available No t Available isosorbide mononitrat e ER 30 mg tablet,ext ended release 24 hr Take 1 tablet every day by oral route. 01/22 completed Not Available Not Available Not Available clopidogre l 75 mg tablet Take 1 tablet every day by oral route. active Not Available Not Available No t Available tramadol 50 mg tablet Take 1 tablet every 6 hours by oral route as needed. 2024 active Not Available Not Available Not Avai lable acetaminop hen 500 mg tablet Take 2 tablets every day by oral route. active Not Available Not Available No t Available triamcinol one acetonide 0.1 % topical cream Apply 1 applicati on twice a day by topical route as needed. active Not Available Not Available No t Available spironolac tone 25 mg tablet Take 0.5 tablets every day by oral route. active Not Available Not Available No t Available levothyrox ine 25 mcg tablet Take 1 tablet every day by oral route. active Not Available Not Available No t Available alprazolam 0.25 mg tablet Take 1 tablet every day by oral route as needed. 03/10 completed Not Available Not Available Not Available pantoprazo le 40 mg tablet,del ayed release Take 1 tablet twice a day by oral route. active Not Available Not Available No t Available folic acid 1 mg tablet Take 1 tablet every day by oral route. active Not Available Not Available No t Available furosemide 20 mg tablet Take 1 tablet every day by oral route. active Not Available Not Available No t Available mirtazapin e 15 mg tablet Take 1 tablet every day by oral route at bedtime. active Not Available Not Available No t Available metoprolol succinate ER 25 mg tablet,ext ended release 24 hr Take 0.5 tablets every day by oral route. active Not Available Not Available No t Available ergocalcif marion (vitamin D2) 1,250 mcg (50,000 unit) capsule Take 1 capsule every week by oral route. active Not Available Not Available No t Available ondansetro n 4 mg disintegra ting tablet Place 1 tablet every 6 hours by transling ual route as needed. active Not Available Not Available No t Available sertraline 50 mg tablet Take 1 tablet every day by oral route. 01/31 completed Not Available Not Available Not Available Saline Nasal 0.65 % spray aerosol Take 2 sprays every 4 hours by nasal route as needed. active Not Available Not Available No t Available mirtazapin e 7.5 mg tablet Take 1 tablet every day by oral route at bedtime for 7 days. 02/04 completed then [02/04 ] start 15 mg daily at bedtim e. Not Available Not Available Not Available Acetaminop hen PM 25 mg-500 mg tablet Take 2 tablets every day by oral route at bedtime. active Not Available Not Available No t Available Child Multi-Symp daniel Cold-Cough 10 mls po BID prn 03/26 completed Not Available Not Available Not Available Cyn-Tussi n 100 mg/5 mL oral liquid Take 10 mL every 4 hours by oral route as needed. active Not Available Not Available No t Available cholecalci ferol (vitamin D3) 1,250 mcg (50,000 unit) tablet Take 1 tablet every week by oral route. 02/06 completed Not Available Not Available Not Available Eliquis 2.5 mg tablet Take 1 tablet twice a day by oral route. active Not Available Not Available No t Available potassium chloride ER 20 mEq tablet,ext ended release Take 2 tablets every day by oral route for 3 days. active then [06/29] 20 meq daily. Not Available Not Available Not Available Flonase Allergy Relief 50 mcg/actuat ion nasal spray,susp ension [place] 4 sprays every day by intranasa l route at bedtime. active Not Available Not Available No t Available Entresto 24 mg-26 mg tablet Take 0.5 tablets twice a day by oral route. active Not Available Not Available No t Available Child Giltuss Mult-Sym Cold-Flu 4 mg-10 mg-13 mg-650 mg/10 mL oral liq Take 10 mL every day by oral route. 04/24 completed Not Available Not Available Not Available Vitals Date Recorded Body height Body mass index (BMI) Body weight Oxygen saturation Oxygen saturation in Arterial blood by Pulse oximetry Respiratory rate Body temperature Heart rate Systolic blood pressure Diastolic blood pressure Provider Name and Address Organization Details Last Updated DateTime 5 180.34 cm 27.4 kg/m2 70064.9 8 g 96 % 96 % 18 /min 97.5 [degF] 62 /min 128 mm[Hg] 64 mm[Hg] [place] [address] [place], [address] , [place] [employer] [facility] 5 14:37:01 Date Recorded Body height Heart rate Body temperature Respiratory rate Oxygen saturation Oxygen saturation in Arterial blood by Pulse oximetry Body mass index (BMI) Body weight Systolic blood pressure Diastolic blood pressure Provider Name and Address Organization Details Last Updated DateTime 5 180.34 cm 80 /min 97 [degF] 18 /min 97 % 97 % 27 kg/m2 03234.4 8 g 133 mm[Hg] 73 mm[Hg] [place] [address] [place], [address] , [facility] 5 08:29:58 Date Recorded Body height Heart rate Body temperature Respiratory rate Oxygen saturation Oxygen saturation in Arterial blood by Pulse oximetry Body mass index (BMI) Body weight Systolic blood pressure Diastolic blood pressure Provider Name and Address Organization Details Last Updated DateTime 5 180.34 cm 76 /min 98 [degF] 20 /min 95 % 95 % 28 kg/m2 79812.0 7 g 129 mm[Hg] 69 mm[Hg] [place] [address] [place], [address], [place] [facility] 5 10:52:25 Date Recorded Body height Oxygen saturation Oxygen saturation in Arterial blood by Pulse oximetry Respiratory rate Body temperature Heart rate Systolic blood pressure Diastolic blood pressure Provider Name and Address Organization Details Last Updated DateTime 5 180.34 cm 97 % 97 % 20 /min 98.2 [degF] 75 /min 124 mm[Hg] 73 mm[Hg] [place] [address] [place], [address], [place] [facility] 5 03:35:43 Date Recorded Body height Heart rate Body temperature Respiratory rate Oxygen saturation Oxygen saturation in Arterial blood by Pulse oximetry Systolic blood pressure Diastolic blood pressure Provider Name and Address Organization Details Last Updated DateTime 5 180.34 cm 96 /min 97.7 [degF] 18 /min 96 % 96 % 130 mm[Hg] 80 mm[Hg] [place] [address] [place], [address], [place] [facility] 5 16:16:28 Social History Question Answer Notes LastModified by Maimai Details LastModified Time Tobacco Smoking Status [place] [address] [place], [address], [place] [facility] 01/23/2024 07:21:27 What Is Your Code Status? DNR Information not available 01/21/2024 What Is Your Relationship Status? Information not available 01/21/2024 Sex: Unknown Functional Status Question Answer Note LastModified by Maimai Details LastModified Time Do you use any illicit or recreational drugs? No Information not available 01/23/2024 What is your level of alcohol consumption? None Information not available 01/23/2024 Mental Status None recorded. Family History Relationship Description Onset Age of this Age Resolved Age Notes LastModified by Organization Details LastModified Time Father No current problems or disability [email or web address] Not available 01/22 07:44:47 Mother No current problems or disability [email or web address] Not available 01/22 07:44:47 Medical History Condition Response Psychiatric -- Anxiety Disorder Y Atrial Fibrillation Y Ulcer -- Venous Stasis Y Psychiatric -- Depression Y Hypothyroidism Y Fall Y Anemia Y Constipation Y Congestive Heart Failure (CHF) Y Hyperlipidemia Y GERD / Reflux Y Hypertension Y Past Encounters Encounter ID Performer Location Encounter Start Date Encounter Closed Date Diagnosis/Indication Diagnosis SNOMED-CT Code Diagnosis ICD10 Code Diagnosis Note [id number] Corazon Mckinney DO [place] [address] [place] [address] 01/22/2024 00:10:17 01/24/2024 16:58:22 Hyponatremia 76173219 E87.1 patient is newly diagnosed with hypothyroi dism - levothyrox ine has been startedcon tinue diureticst rend serum sodium levelscons ider fluid restrictio n if worseninga void additional aggravatin g meds - patient does continue on SSRI Gastrointe stinal hemorrhage 76772872 K92.2 due to severe gastritis and esophagiti scontinue high dose PPI therapypla n is for GI f/u 3 months for repeat EGDGI has documented that anticoagul ation is OK to continue as long as the patient has not evidence of active bleeding with melena or hematochez ia Anemia 418905161 D64.9 related to aboveconti nue folate replacemen ttrend CBC Gastritis 7259404 K29.70 see above Congestive heart failure 09807243 I50.9 TTE 01/14 EF 55-70%, mild atrial enlargemen t, RV volume overload with elevated RV end -diastolic pressurela six dose adjusted during his inpatient stay - was taking 20 mg BID prior to his recent hospitaliz ation. Now on 20 mg daily with addition of aldactone to medication regimencon tinue entrestod/ c imdur due to hypotensio nf/u with Dr. Hwang as scheduled in early February Major depr essive disorder 407774870 F32.9 continue sertraline - monitor clinically for need to dose adjust Constipation 17418883 K5 9.00 continue daily miralaxadd itional meds available per standing orders Allergic rhinitis 331624 04 J30.9 continue daily flonase Hypothyroidism 02039185 E03.9 newly diagnosed while hospitaliz ed at [facility] ntinue low dose synthroidf /u thyroid studies 6-8 weeks Atrial fibrillation 4943 6004 I48.91 rate is controlled with metoprolol continue eliquis for VTE prophylaxi s - may need to readdress continuati on of this with fall risk and recent GI bleeding (risks may outweight benefits going forward) Multiple o pen wounds of lower leg 316357300 S81.809D continue current wound careSWM to consultno evidence of secondary cellulitis at this time Laceration of left forearm 4621211232 6178191 S51.812D repaired at [facility] 12/4suture s remain in placewound with large amount of exudate/sl ough which may need some debridingw ill request ER records to confirm # of sutures - appears there are at least [address] at this time - continue daily wound care/SWM consult and close observatio n for secondary infection Hyperlipidemia 36313978 E78.5 presumed stable - continue statin therapy 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 Consider transition to alternate therapy during his stay or as an outpatient . Trazodone might be a good option. Glaucoma 19690463 H40.9 continue latanopros toutpatien t f/u with ophtho Physical deconditioning 2133936705 9102 R68.89 related to advanced age, recent hospitaliz ation, comorbidit iestherapi es have been initiated - will monitor progressgo al is for patient to return to his CTF home at - no alternate discharge plan is in place. Have discussed with importance of plan B in the event that the patient does not progress with therapy and requires alternate placement upon discharge from SNF. Recurrent falls 73556160 2 R29.6 likely multifacto rial in naturecons ider checking vitamin D levelrecen t Vitamin B12 level normalcont inue therapies [id number] Corazon Mckinney, DO [facility] [address] [place] [address] 01/24/2024 09:25:15 01/25/2024 16:00:19 Hyponatremia 00688436 E87.1 Newly diagnosed with hypothyroi dism. Levothyrox ine has been started.Co ntinue Furosemide & Spironolac tone.Trend serum sodium levels.Con ssis etl developer fluid restrictio n if worsening. Stable thus far.Avoid additional aggravatin g meds. Patient does continue on SSRI. Gastrointe stinal hemorrhage 74683093 K92.2 due to severe gastritis and esophagiti s. GI has documented that anticoagul ation is OK to continue as long as the patient has not evidence of active bleeding with melena or hematochez ia.Continu e high dose PPI therapy.Pl an is for GI f/u 3 months for repeat EGD. Anemia 542199214 D64.9 Related to above.Cont inue folate replacemen t.Pt did not tolerate oral iron tablets (nausea) so discontinu ed while inpatient. Trend CBC. Gastritis 3768464 K29.70 SEE ABOVE... Congestive heart failure 79381214 I50.9 TTE on 01/14 EF 55-70%, mild atrial enlargemen t, RV volume overload with elevated RV end -diastolic pressure.L asix dose adjusted during his inpatient stay - was taking 20 mg BID prior to his recent hospitaliz ation. Now on 20 mg daily with addition of Aldactone. Continue Entresto.H ave d/kelly Imdur due to hypotensio n.f/u with Dr. Hwang as scheduled in early February. Major depr essive disorder 619471894 F32.9 Stable. Continue Sertraline - monitor clinically for need to dose adjust. Constipation 16360322 K5 9.00 Stable. Continue daily Miralax.Ad ditional meds available per standing orders. Allergic rhinitis 729310 04 J30.9 Stable. Continue daily flonase. Hypothyroidism 74361782 E03.9 Newly diagnosed while hospitaliz ed at [facility].C ontinue newly-adde d low dose Synthroid. f/u thyroid studies 6-8 weeks (Mar 2024). Atrial fibrillation 4943 6004 I48.91 Rate is controlled with Metoprolol .Continue Eliquis for VTE prophylaxi s. May need to readdress continuati on of this with fall risk and recent GI bleeding (risks may outweigh benefit going forward). Multiple o pen wounds of lower leg 294522613 S81.809D Continue current wound care.SWM to consult.No evidence of secondary cellulitis at this time. Laceration of left forearm 9764012889 8252138 S51.812D Repaired at [facility] on 01/09.Sutur es removed on 01/21.Cont inue daily wound care/SWM consult and close observatio n for secondary infection. Hyperlipidemia 13193396 E78.5 Presumed stable. Continue statin. 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 Continue Metoprolol , Entresto, Lasix, & Spironolac tone.Stopp ed Imdur in response to hypotensio n, BPs have since stabilized . Hold parameters in place with Entresto and Metoprolol .Continue to trend blood pressures, monitor lytes and renal function, and adjust meds as clinically indicated. Generalize d anxiety disorder 25728389 F41.1 Patient takes routine Alprazolam as an outpatient at bedtime.Jayesh morris reports this helps patient sleep through the night, as well. Not ideal treatment in this elderly man with recent falls but due to longstandi ng use, will continue as a PRN med for now. Consider transition to alternate therapy during his stay or as an outpatient . Trazodone might be a good option. Glaucoma 43951857 H40.9 Presumed stable. Continue Latanopros t.Outpatie nt f/u with ophtho. Recurrent falls 47248963 2 R29.6 Likely multifacto rial in nature.Con ssis etl developer checking vitamin D level.Rece nt Vitamin B12 level normal.Con tinue therapies. Physical deconditioning 3359030695 9102 R68.89 Related to advanced age, recent hospitaliz ation, comorbidit ies.Therap ies have been initiated - will monitor progress.G oal is for patient to return to his ILF home at - no alternate discharge plan is in place. Have discussed with importance of plan B in the event that the patient does not progress with therapy and requires alternate placement upon discharge from SNF. [id number] Corazon Mckinney DO [facility] [address] [place] [address] 01/29/2024 10:25:42 01/30/2024 12:25:05 Hyponatremia 31313410 E87.1 Newly diagnosed with hypothyroi dism. Levothyrox ine has been started.Co ntinue Furosemide & Spironolac tone.Trend serum sodium levels.Con ssis etl developer fluid restrictio n if worsening. Stable thus far.Avoid additional aggravatin g meds. Patient does continue on SSRI. Hypothyroidism 22161963 E03.9 Newly diagnosed while hospitaliz ed at [facility].C ontinue newly-adde d low dose Synthroid. f/u thyroid studies 6-8 weeks (Mar 2024). Gastrointe stinal hemorrhage 73065205 K92.2 due to severe gastritis and esophagiti s. GI has documented that anticoagul ation is OK to continue as long as the patient has not evidence of active bleeding with melena or hematochez ia.Continu e high dose PPI therapy.Pl an is for GI f/u 3 months for repeat EGD. Anemia 908201776 D64.9 Related to above.Cont inue folate replacemen t.Pt did not tolerate oral iron tablets (nausea) so discontinu ed while inpatient. Trend CBC. Gastritis 6274772 K29.70 SEE ABOVE... 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 Continue Metoprolol , Entresto, Lasix, & Spironolac tone.Stopp ed Imdur in response to hypotensio n, BPs have since stabilized . Hold parameters in place with Entresto and Metoprolol .Continue to trend blood pressures, monitor lytes and renal function, and adjust meds as clinically indicated. Congestive heart failure 06575519 I50.9 TTE on 01/14 EF 55-70%, mild atrial enlargemen t, RV volume overload with elevated RV end -diastolic pressure.L asix dose adjusted during his inpatient stay - was taking 20 mg BID prior to his recent hospitaliz ation. Now on 20 mg daily with addition of Aldactone. Continue Entresto.H ave d/kelly Imdur due to hypotensio n.f/u with Dr. Hwang as scheduled in early February. Atrial fibrillation 4943 6004 I48.91 Rate is controlled with Metoprolol .Continue Eliquis for VTE prophylaxi s. May need to readdress continuati on of this with fall risk and recent GI bleeding (risks may outweigh benefit going forward). Multiple o pen wounds of lower leg 928504429 S81.809D Continue current wound care.SWM TOGGLER to follow weekly.No evidence of secondary cellulitis at this time. Laceration of left forearm 8880720061 9078332 S51.812D Repaired at [facility] on 01/09.Sutur es removed on 01/21.Cont inue daily wound care/SWM consult and close observatio n for secondary infection. Hyperlipidemia 48572782 E78.5 Presumed stable. Continue statin. Major depr essive disorder 716802395 F32.[address] Duque transition ing Sertraline to Mirtazapin e in hopes it will help his appetite. Generalize d anxiety disorder 63713765 F41.1 Patient takes routine Alprazolam as an outpatient at bedtime.Jayesh morris reports this helps patient sleep through the night, as well. Not ideal treatment in this elderly man with recent falls but due to longstandi ng use, will continue as a PRN med for now. Consider transition to alternate therapy during his stay or as an outpatient . Trazodone might be a good option. Constipation 81713190 K5 9.00 Stable. Continue daily Miralax.Ad ditional meds available per standing orders. Allergic rhinitis 678989 04 J30.9 Stable. Continue daily flonase. Glaucoma 29502258 H40.9 Presumed stable. Continue Latanopros t.Outpatie nt f/u with ophtho. Recurrent falls 78015729 2 R29.6 Likely multifacto rial in nature.Con ssis etl developer checking vitamin D level.Rece nt Vitamin B12 level normal.Con tinue therapies. Physical deconditioning 5572180244 9102 R68.89 Related to advanced age, recent hospitaliz ation, comorbidit ies.Therap ies have been initiated - will monitor progress.G oal is for patient to return to his ILF home at - no alternate discharge plan is in place. Have discussed with importance of plan B in the event that the patient does not progress with therapy and requires alternate placement upon discharge from SNF. [id number] Corazon Mckinney DO [place] [place] [address] 02/01/2024 09:08:50 02/05/2024 15:14:45 Hyponatremia 54310061 E87.1 Newly diagnosed with hypothyroi dism. Levothyrox ine has been started.Co ntinue Furosemide & Spironolac tone.Trend serum sodium levels. Have trended 130-131 here.Consi keon fluid restrictio n if worsening. Avoid additional aggravatin g meds. Hypothyroidism 03059663 E03.9 Newly diagnosed while hospitaliz ed at [facility].C ontinue newly-adde d low dose Synthroid. f/u thyroid studies 6-8 weeks (Mar 2024). Gastrointe stinal hemorrhage 68616353 K92.2 due to severe gastritis and esophagiti s. GI has documented that anticoagul ation is OK to continue as long as the patient has not evidence of active bleeding with melena or hematochez ia.Continu e high dose PPI therapy.Hg b has been very slowly improving. Plan is for GI f/u 3 months for repeat EGD. Anemia 658248677 D64.9 Related to above.Cont inue folate replacemen t.Pt did not tolerate oral iron tablets (nausea) so discontinu ed while inpatient. Hgb has been very slowly improving. Trend CBC. Gastritis 7221287 K29.70 SEE ABOVE... 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 Continue Metoprolol , Entresto, Lasix, & Spironolac tone.Stopp ed Imdur in response to hypotensio n, BPs have since stabilized . Hold parameters in place with Entresto and Metoprolol .Continue to trend blood pressures, monitor lytes and renal function, and adjust meds as clinically indicated. Congestive heart failure 56886966 I50.9 TTE on 01/14 EF 55-70%, mild atrial enlargemen t, RV volume overload with elevated RV end -diastolic pressure.L asix dose adjusted during his inpatient stay - was taking 20 mg BID prior to his recent hospitaliz ation. Now on 20 mg daily with addition of Aldactone. Continue Entresto.H ave d/kelly Imdur due to hypotensio n.f/u with Dr. Hwang as scheduled in early February. Atrial fibrillation 4943 6004 I48.91 Rate is controlled with Metoprolol .Continue Eliquis for VTE prophylaxi s. May need to readdress continuati on of this with fall risk and recent GI bleeding (risks may outweigh benefit going forward). Multiple o pen wounds of lower leg 789038605 S81.809D Continue current wound care.SWM TOGGLER to follow weekly.No evidence of secondary cellulitis at this time. Laceration of left forearm [id number] 6155632 S51.812D Repaired at [facility] on 01/09.Sutur es removed on 01/21.Cont inue daily wound care/SWM consult and close observatio n for secondary infection. Hyperlipidemia 95827620 E78.5 Presumed stable. Continue statin. Major depr essive disorder 041347121 F32.[address] Duque transition ing Sertraline to Mirtazapin e in hopes it will help his appetite. Generalize d anxiety disorder 57050564 F41.1 Patient takes routine Alprazolam as an outpatient at bedtime.Jayesh morris reports this helps patient sleep through the night, as well. Not ideal treatment in this elderly man with recent falls but due to longstandi ng use, will continue as a PRN med for now. Consider transition to alternate therapy during his stay or as an outpatient . Trazodone might be a good option. Constipation 62813022 K5 9.00 Stable. Continue daily Miralax.Ad ditional meds available per standing orders. Allergic rhinitis 004199 04 J30.9 Stable. Continue daily flonase. Glaucoma 45025197 H40.9 Presumed stable. Continue Latanopros t.Outpatie nt f/u with ophtho. Recurrent falls 10175049 2 R29.6 Likely multifacto rial in nature.Con ssis etl developer checking vitamin D level.Rece nt Vitamin B12 level normal.Con tinue therapies. Physical deconditioning [id number] 9102 R68.89 Related to advanced age, recent hospitaliz ation, comorbidit ies.Therap ies have been initiated - will monitor progress.G oal is for patient to return to his ILF home at - no alternate discharge plan is in place. Have discussed with importance of plan B in the event that the patient does not progress with therapy and requires alternate placement upon discharge from SNF. [id number] Corazon Mckinney, DO [place] [address] [place] [address] 02/05/2024 09:55:28 02/12/2024 16:30:40 Vitamin D deficiency 13743452 E55.9 Level 15. Start on weekly supplement and trend level as OP. Hypothyroidism 62280491 E03.9 Newly diagnosed while hospitaliz ed at [facility].C ontinue newly-adde d low-dose Synthroid. f/u thyroid studies 6-8 weeks (Mar 2024). Hyponatremia 66008492 E8 7.1 Newly diagnosed with hypothyroi dism. Levothyrox ine has been started.Co ntinue Furosemide & Spironolac tone.Trend serum sodium levels. Have trended 130-131 here.Consi keon fluid restrictio n if worsening. Avoid additional aggravatin g meds. Gastrointe stinal hemorrhage 68012470 K92.2 due to severe gastritis and esophagiti s. GI has documented that anticoagul ation is OK to continue as long as the patient has not evidence of active bleeding with melena or hematochez ia.Continu e high dose PPI therapy.Hg b has been very slowly improving. Doubt accuracy of most recent Hgb as huge jump to 11s.Plan is for GI f/u 3 months for repeat EGD. Anemia 801509774 D64.9 Related to above.Cont inue folate replacemen t.Pt did not tolerate oral iron tablets (nausea) so discontinu ed while inpatient. Hgb has been very slowly improving. Trend CBC. Gastritis 6644160 K29.70 SEE ABOVE... Hypertensi ve heart disease with congestive heart failure 6746939 I11.0 Stable. Continue Metoprolol , Entresto, Lasix, & Spironolac tone.Stopp ed Imdur in response to hypotensio n, BPs have since stabilized . Hold parameters in place with Entresto and Metoprolol .Continue to trend blood pressures, monitor lytes and renal function, and adjust meds as clinically indicated. Congestive heart failure 89727029 I50.9 TTE on 01/14 EF 55-70%, mild atrial enlargemen t, RV volume overload with elevated RV end -diastolic pressure.L asix dose adjusted during his inpatient stay - was taking 20 mg BID prior to his recent hospitaliz ation. Now on 20 mg daily with addition of Aldactone. Continue Entresto.H ave d/kelly Imdur due to hypotensio n.f/u with Dr. Hwang as scheduled in early February. Atrial fibrillation 4943 6004 I48.91 Rate is controlled with Metoprolol .Continue Eliquis for VTE prophylaxi s. May need to readdress continuati on of this with fall risk and recent GI bleeding (risks may outweigh benefit going forward). Multiple o pen wounds of lower leg 392107719 S81.809D Continue current wound care.SWM TOGGLER to follow weekly.No evidence of secondary cellulitis at this time. Laceration of left forearm [id number] 6294167 S51.812D Repaired at [facility] on 01/09.Sutur es removed on 01/21. Healed. Hyperlipidemia 71900834 E78.5 Presumed stable. Continue statin. Major depr essive disorder 752900561 F32.[address] Duque transition ing Sertraline to Mirtazapin e in hopes it will help his appetite. Generalize d anxiety disorder 06426914 F41.1 Patient takes routine Alprazolam as an outpatient at bedtime.Jayesh morris reports this helps patient sleep through the night, as well. Not ideal treatment in this elderly man with recent falls but due to longstandi ng use, will continue as a PRN med for now. Consider transition to alternate therapy during his stay or as an outpatient . Trazodone might be a good option. Constipation 01537994 K5 9.00 Stable. Continue daily Miralax.Ad ditional meds available per standing orders. Allergic rhinitis 350674 04 J30.9 Stable. Continue daily flonase. Glaucoma 93148480 H40.9 Presumed stable. Continue Latanopros t.Outpatie nt f/u with ophtho. Recurrent falls 71291111 2 R29.6 Likely multifacto rial in nature.Con ssis etl developer checking vitamin D level.Rece nt Vitamin B12 level normal.Con tinue therapies. Physical deconditioning 6333423863 9102 R68.89 Related to advanced age, recent hospitaliz ation, comorbidit ies.Therap ies have been initiated - will monitor progress.G oal is for patient to return to his ILF home at - no alternate discharge plan is in place. Have discussed with importance of plan B in the event that the patient does not progress with therapy and requires alternate placement upon discharge from SNF. [id number] Corazon Mckinney, [facility] [address] [place] [address] 02/07/2024 13:00:38 03/09/2024 09:21:35 Vitamin D deficiency 80262870 E55.9 Level 15. Start on weekly supplement and trend level as OP. Hypothyroidism 78805017 E03.9 Newly diagnosed while hospitaliz ed at [facility].C ontinue newly-adde d low-dose Synthroid. f/u thyroid studies 6-8 weeks (Mar 2024). Hyponatremia 21820366 E8 7.1 Newly diagnosed with hypothyroi dism. Levothyrox ine has been started.Co ntinue Furosemide & Spironolac tone.Trend serum sodium levels. Have trended 130-131 here.Consi keon fluid restrictio n if worsening. Avoid additional aggravatin g meds. Gastrointe stinal hemorrhage 56747773 K92.2 due to severe gastritis and esophagiti s. GI has documented that anticoagul ation is OK to continue as long as the patient has not evidence of active bleeding with melena or hematochez ia.Continu e high dose PPI therapy.Hg b has been very slowly improving. Doubt accuracy of most recent Hgb as huge jump to 11s.Plan is for GI f/u 3 months for repeat EGD. Gastritis 2841878 K29.70 SEE ABOVE... Anemia 278709971 D64.9 Related to above.Cont inue folate replacemen t.Pt did not tolerate oral iron tablets (nausea) so discontinu ed while inpatient. Hgb has been very slowly improving. Trend CBC. Hypertensi ve heart disease with congestive heart failure 7179022 I11.0 Stable. Continue Metoprolol , Entresto, Lasix, & Spironolac tone.Stopp ed Imdur in response to hypotensio n, BPs have since stabilized . Hold parameters in place with Entresto and Metoprolol .Continue to trend blood pressures, monitor lytes and renal function, and adjust meds as clinically indicated. Congestive heart failure 70505104 I50.9 TTE on 01/14 EF 55-70%, mild atrial enlargemen t, RV volume overload with elevated RV end -diastolic pressure.L asix dose adjusted during his inpatient stay - was taking 20 mg BID prior to his recent hospitaliz ation. Now on 20 mg daily with addition of Aldactone. Continue Entresto.H ave d/kelly Imdur due to hypotensio n.f/u with Dr. Hwang as scheduled in early February. Atrial fibrillation 4943 6004 I48.91 Rate is controlled with Metoprolol .Continue Eliquis for VTE prophylaxi s. May need to readdress continuati on of this with fall risk and recent GI bleeding (risks may outweigh benefit going forward). Multiple o pen wounds of lower leg 953244433 S81.809D Continue current wound care.SWM TOGGLER to follow weekly.No evidence of secondary cellulitis at this time. Hyperlipidemia 01777636 E78.5 Presumed stable. Continue statin. Major depr essive disorder 699699626 F32.[address] Duque transition ing Sertraline to Mirtazapin e in hopes it will help his appetite. Generalize d anxiety disorder 35831802 F41.1 Patient takes routine Alprazolam as an outpatient at bedtime.Jayesh morris reports this helps patient sleep through the night, as well. Not ideal treatment in this elderly man with recent falls but due to longstandi ng use, will continue as a PRN med for now. Consider transition to alternate therapy during his stay or as an outpatient . Trazodone might be a good option. Constipation 48863061 K5 9.00 Stable. Continue daily Miralax.Ad ditional meds available per standing orders. Allergic rhinitis 075728 04 J30.9 Stable. Continue daily flonase. Glaucoma 45687632 H40.9 Presumed stable. Continue Latanopros t.Outpatie nt f/u with ophtho. Recurrent falls 88958578 2 R29.6 Likely multifacto rial in nature.Con ssis etl developer checking vitamin D level.Rece nt Vitamin B12 level normal.Con tinue therapies. Laceration of left forearm 0456791982 7283782 S51.812D Repaired at [facility] on 01/09.Sutur es removed on 01/21. Healed. Physical deconditioning 1307798652 9102 R68.89 Related to advanced age, recent hospitaliz ation, comorbidit ies.Therap ies have been initiated - will monitor progress.G oal is for patient to return to his ILF home at - no alternate discharge plan is in place. Have discussed with importance of plan B in the event that the patient does not progress with therapy and requires alternate placement upon discharge from SNF. [id number] Corazon Mckinney, DO [facility] [address] [facility] [place] [address] 02/09/2024 10:42:02 03/09/2024 09:22:52 Vitamin D deficiency 89764520 E55.9 Level 15. Started on weekly supplement and trend level as OP. Hypothyroidism 15307444 E03.9 Newly diagnosed while hospitaliz ed at [facility].C ontinue newly-adde d low-dose Synthroid. f/u thyroid studies 6-8 weeks (Mar 2024). Hyponatremia 45891051 E8 7.1 Newly diagnosed with hypothyroi dism. Levothyrox ine has been started.Co ntinue Furosemide & Spironolac tone.Trend serum sodium levels. Had trended 130-131 here, but most recently was 139.Consid er fluid restrictio n if worsening. Avoid additional aggravatin g meds. Gastrointe stinal hemorrhage 06598657 K92.2 due to severe gastritis and esophagiti s. GI has documented that anticoagul ation is OK to continue as long as the patient has not evidence of active bleeding with melena or hematochez ia.Continu e high dose PPI therapy.Hg b has been very slowly improving, most recently 10.7.Plan is for GI f/u 3 months for repeat EGD. Gastritis 6592789 K29.70 SEE ABOVE... Anemia 626018791 D64.9 Related to above.Cont inue folate replacemen t.Pt did not tolerate oral iron tablets (nausea) so discontinu ed while inpatient. Hgb has been improving. Trend CBC. Hypertensi ve heart disease with congestive heart failure 9625833 I11.0 Stable. Continue Metoprolol , Entresto, Lasix, & Spironolac tone.Stopp ed Imdur in response to hypotensio n, BPs have since stabilized . Hold parameters in place with Entresto and Metoprolol .Continue to trend blood pressures, monitor lytes and renal function, and adjust meds as clinically indicated. Congestive heart failure 29270053 I50.9 TTE on 01/14 EF 55-70%, mild atrial enlargemen t, RV volume overload with elevated RV end -diastolic pressure.L asix dose adjusted during his inpatient stay - was taking 20 mg BID prior to his recent hospitaliz ation. Now on 20 mg daily with addition of Aldactone. Continue Entresto.H ave d/kelly Imdur due to hypotensio n.f/u with Dr. Hwang as scheduled in early February. Atrial fibrillation 4943 6004 I48.91 Rate is controlled with Metoprolol .Continue Eliquis for VTE prophylaxi s. May need to readdress continuati on of this with fall risk and recent GI bleeding (risks may outweigh benefit going forward). Multiple o pen wounds of lower leg 864310645 S81.809D Continue current wound care.SWM TOGGLER to follow weekly.No evidence of secondary cellulitis at this time. Hyperlipidemia 46120280 E78.5 Presumed stable. Continue statin. Major depr essive disorder 261686454 F32.[address] Duque transition ing Sertraline to Mirtazapin e in hopes it will help his appetite. Generalize d anxiety disorder 34067962 F41.1 Patient takes routine Alprazolam as an outpatient at bedtime.Jayesh morris reports this helps patient sleep through the night, as well. Not ideal treatment in this elderly man with recent falls but due to longstandi ng use, will continue as a PRN med for now. Consider transition to alternate therapy during his stay or as an outpatient . Trazodone might be a good option. Constipation 13736663 K5 9.00 Stable. Continue daily Miralax.Ad ditional meds available per standing orders. Allergic rhinitis 444275 04 J30.9 Stable. Continue daily flonase. Glaucoma 33982026 H40.9 Presumed stable. Continue Latanopros t.Outpatie nt f/u with ophtho. Recurrent falls 08193652 2 R29.6 Likely multifacto rial in nature.Con ssis etl developer checking vitamin D level.Rece nt Vitamin B12 level normal.Con tinue therapies. Laceration of left forearm 2819491847 0067095 S51.812D Repaired at [facility] on 01/09.Sutur es removed on 01/21. Healed. Physical deconditioning 8937918848 9102 R68.89 Related to advanced age, recent hospitaliz ation, comorbidit ies.Therap ies have been initiated - will monitor progress.G oal is for patient to return to his ILF home at - no alternate discharge plan is in place. Have discussed with importance of plan B in the event that the patient does not progress with therapy and requires alternate placement upon discharge from SNF. [id number] Corazon Mckinney, [address] [address] 02/14/2024 09:31:06 03/09/2024 09:24:27 Hypothyroidism 62253785 E03.9 Newly diagnosed while hospitaliz ed at [facility].C ontinue newly-adde d low-dose Synthroid. f/u thyroid studies 6-8 weeks (Mar 2024). Hyponatremia 99600627 E8 7.1 Newly diagnosed with hypothyroi dism. Levothyrox ine has been started.Co ntinue Furosemide & Spironolac tone.Trend serum sodium levels. Had trended 130-131 here, but most recently was 139.Consid er fluid restrictio n if worsening. Avoid additional aggravatin g meds. Gastrointe stinal hemorrhage 86402013 K92.2 due to severe gastritis and esophagiti s. GI has documented that anticoagul ation is OK to continue as long as the patient has not evidence of active bleeding with melena or hematochez ia.Continu e high dose PPI therapy.Hg b has been very slowly improving, most recently 10.7.Plan is for GI f/u 3 months for repeat EGD. Gastritis 2314449 K29.70 SEE ABOVE... Anemia 872256299 D64.9 Related to above.Cont inue folate replacemen t.Pt did not tolerate oral iron tablets (nausea) so discontinu ed while inpatient. Hgb has been improving. Trend CBC. Hypertensi ve heart disease with congestive heart failure 6186700 I11.0 Stable. Continue Metoprolol , Entresto, Lasix, & Spironolac tone.Stopp ed Imdur in response to hypotensio n, BPs have since stabilized . Hold parameters in place with Entresto and Metoprolol .Continue to trend blood pressures, monitor lytes and renal function, and adjust meds as clinically indicated. F/U with Dr. Hwang on 02/18. Congestive heart failure 90155544 I50.9 TTE on 01/14 EF 55-70%, mild atrial enlargemen t, RV volume overload with elevated RV end -diastolic pressure.L asix dose adjusted during his inpatient stay - was taking 20 mg BID prior to his recent hospitaliz ation. Now on 20 mg daily with addition of Aldactone. Continue Entresto.H ave d/kelly Imdur due to hypotensio n.F/U with Dr. Hwang on 02/18. Atrial fibrillation 4943 6004 I48.91 Rate is controlled with Metoprolol .Continue Eliquis for VTE prophylaxi s. May need to readdress continuati on of this with fall risk and recent GI bleeding (risks may outweigh benefit going forward).F /U with Dr. Hwang on 02/18. Multiple o pen wounds of lower leg 210954638 S81.809D Continue current wound care.SWM TOGGLER to follow weekly.No evidence of secondary cellulitis at this time. Hyperlipidemia 62115828 E78.5 Presumed stable. Continue statin. Major depr essive disorder 159877368 F32.[address] Duque transition ing Sertraline to Mirtazapin e in hopes it will help his appetite. Generalize d anxiety disorder 59183693 F41.1 Patient takes routine Alprazolam as an outpatient at bedtime.Jayesh morris reports this helps patient sleep through the night, as well. Not ideal treatment in this elderly man with recent falls but due to longstandi ng use, will continue as a PRN med for now. Consider transition to alternate therapy during his stay or as an outpatient . Trazodone might be a good option. Vitamin D deficiency 347 44304 E55.9 Level 15. Started on weekly supplement and trend level as OP. Constipation 42559660 K5 9.00 Stable. Continue daily Miralax.Ad ditional meds available per standing orders. Allergic rhinitis 287848 04 J30.9 Stable. Continue daily flonase. Glaucoma 10950599 H40.9 Presumed stable. Continue Latanopros t.Outpatie nt f/u with ophtho. Recurrent falls 81820851 2 R29.6 Likely multifacto rial in nature.Con ssis etl developer checking vitamin D level.Rece nt Vitamin B12 level normal.Con tinue therapies. Laceration of left forearm 1605425475 5772725 S51.812D Repaired at [facility] on 01/09.Sutur es removed on 01/21. Healed. Physical deconditioning 4408862920 9102 R68.89 Related to advanced age, recent hospitaliz ation, comorbidit ies.Therap ies have been initiated - will monitor progress.G oal is for patient to return to his ILF home at - no alternate discharge plan is in place. Have discussed with importance of plan B in the event that the patient does not progress with therapy and requires alternate placement upon discharge from SNF. [id number] Corazon Mckinney DO [address] [address] 02/16/2024 17:18:51 03/09/2024 09:25:34 Hypertensive heart disease with congestive heart failure 3078869 I11.0 BPs soft, resulting in nursing periodical ly holding Metoprolol and/or Entresto. Stopped Imdur in response to hypotensio n on 01/20.Cont inue Metoprolol , Lasix, & Spironolac tone.Reduc e Entresto to 1/2 dose with hold parameters .Continue to trend blood pressures, monitor lytes and renal function, and adjust meds as clinically indicated. F/U with Dr. Hwang on 02/18. Congestive heart failure 42542574 I50.9 TTE on 01/14 EF 55-70%, mild atrial enlargemen t, RV volume overload with elevated RV end -diastolic pressure.L asix dose adjusted during his inpatient stay - was taking 20 mg BID prior to his recent hospitaliz ation. Now on 20 mg daily with addition of Aldactone. Continue Entresto (halving dose today).F/U with Dr. Hwang on 02/18. Atrial fibrillation 4943 6004 I48.91 Rate is controlled with Metoprolol .Continue Eliquis for VTE prophylaxi s. May need to readdress continuati on of this with fall risk and recent GI bleeding (risks may outweigh benefit going forward).F /U with Dr. Hwang on 02/18. Multiple o pen wounds of lower leg 443483788 S81.809D Continue current wound care.SWM TOGGLER to follow weekly. Hyponatremia 35847450 E8 7.1 Newly diagnosed with hypothyroi dism. Levothyrox ine has been started.Co ntinue Furosemide & Spironolac tone.Trend serum sodium levels. Had trended 130-131 here, but most recently was 139.Consid er fluid restrictio n if worsening. Avoid additional aggravatin g meds. Gastrointe stinal hemorrhage 72197059 K92.2 due to severe gastritis and esophagiti s. GI has documented that anticoagul ation is OK to continue as long as the patient has not evidence of active bleeding with melena or hematochez ia.Continu e high dose PPI therapy.Hg b has been very slowly improving, most recently 10.7.Plan is for GI f/u 3 months for repeat EGD. Gastritis 4360044 K29.70 SEE ABOVE... Anemia 271450245 D64.9 Related to above.Cont inue folate replacemen t.Pt did not tolerate oral iron tablets (nausea) so discontinu ed while inpatient. Hgb has been improving. Trend CBC. Hypothyroidism 42520822 E03.9 Newly diagnosed while hospitaliz ed at [facility].C ontinue newly-adde d low-dose Synthroid. f/u thyroid studies 6-8 weeks (Mar 2024). Hyperlipidemia 48005373 E78.5 Presumed stable. Continue statin. Major depr essive disorder 185765075 F32.9 Dr. Duque transition ed Sertraline to Mirtazapin e on 01/28 in hopes it will help his appetite. Mood has been stable. Generalize d anxiety disorder 22369178 F41.1 Patient takes routine Alprazolam as an outpatient at bedtime.Jayesh morris reports this helps patient sleep through the night, as well. Not ideal treatment in this elderly man with recent falls but due to longstandi ng use, will continue as a PRN med for now. Consider transition to alternate therapy during his stay or as an outpatient . Trazodone might be a good option. Vitamin D deficiency 347 27762 E55.9 Level 15. Started on weekly supplement and trend level as OP. Constipation 36065688 K5 9.00 Stable. Continue daily Miralax.Ad ditional meds available per standing orders. Allergic rhinitis 719309 04 J30.9 Stable. Continue daily flonase. Glaucoma 01915750 H40.9 Presumed stable. Continue Latanopros t.Outpatie nt f/u with ophtho. Recurrent falls 70109887 2 R29.6 Likely multifacto rial in nature.Con ssis etl developer checking vitamin D level.Rece nt Vitamin B12 level normal.Con tinue therapies. Laceration of left forearm [id number] S51.812D Repaired at [facility] on 01/09.Sutur es removed on 01/21. Healed. Physical deconditioning [id number] 9102 R68.89 Related to advanced age, recent hospitaliz ation, comorbidit ies.Therap ies have been initiated - will monitor progress.G oal is for patient to return to his ILF home at - no alternate discharge plan is in place. Have discussed with importance of plan B in the event that the patient does not progress with therapy and requires alternate placement upon discharge from SNF. [id number] Corazon Mckinney, DO [address] [address] 02/19/2024 09:33:18 03/09/2024 09:27:33 Hypertensive heart disease with congestive heart failure 9422654 I11.0 BPs soft, resulting in nursing periodical ly holding Metoprolol and/or Entresto. Stopped Imdur in response to hypotensio n on 01/20.Impr jacque recently. Continue Metoprolol , Lasix, and Entresto (reduced). Dr. Hwang saw today, reduced Spironolac tone to 12.5 mg daily.Cont inue to trend blood pressures, monitor lytes and renal function, and adjust meds as clinically indicated. F/U with Dr. Hwang as directed. Last seen on 02/18 with plan to move forward with CTA of LE with possibilit y of revascular ization procedure in the future. Congestive heart failure 09348557 I50.9 TTE on 01/14 EF 55-70%, mild atrial enlargemen t, RV volume overload with elevated RV end -diastolic pressure.L asix dose adjusted during his inpatient stay - was taking 20 mg BID prior to his recent hospitaliz ation. Now on 20 mg daily with addition of Aldactone. Continue Entresto (reduced) and Spironolac tone (reduced). SEE ABOVE... Atrial fibrillation 4943 6004 I48.91 Rate is controlled with Metoprolol .Continue Eliquis for VTE prophylaxi s.F/U with Dr. Hwang as directed. Multiple o pen wounds of lower leg 600678808 S81.809D Continue current wound care.SWM TOGGLER to follow weekly. Hyponatremia 10572397 E8 7.1 Newly diagnosed with hypothyroi dism. Levothyrox ine has been started.Co ntinue Furosemide & Spironolac tone.Trend serum sodium levels. Had trended 130-131 here, but most recently was 139.Consid er fluid restrictio n if worsening. Avoid additional aggravatin g meds. Gastrointe stinal hemorrhage 37335759 K92.2 due to severe gastritis and esophagiti s. GI has documented that anticoagul ation is OK to continue as long as the patient has not evidence of active bleeding with melena or hematochez ia.Continu e high dose PPI therapy.Hg b has been very slowly improving, most recently 10.7.Plan is for GI f/u 3 months for repeat EGD. Gastritis 5398183 K29.70 SEE ABOVE... Anemia 262371092 D64.9 Related to above.Cont inue folate replacemen t.Pt did not tolerate oral iron tablets (nausea) so discontinu ed while inpatient. Hgb has been improving. Trend CBC. Hypothyroidism 33540506 E03.9 Newly diagnosed while hospitaliz ed at [facility].C ontinue newly-adde d low-dose Synthroid. f/u thyroid studies 6-8 weeks (Mar 2024). Hyperlipidemia 26200325 E78.5 Presumed stable. Continue statin. Major depr essive disorder 306410867 F32.9 Dr. Duque transition ed Sertraline to Mirtazapin e on 01/28 in hopes it will help his appetite. Mood has been stable. Generalize d anxiety disorder 71427908 F41.1 Patient takes routine Alprazolam as an outpatient at bedtime.Jayesh morris reports this helps patient sleep through the night, as well. Not ideal treatment in this elderly man with recent falls but due to longstandi ng use, will continue as a PRN med for now. Consider transition to alternate therapy during his stay or as an outpatient . Trazodone might be a good option. Vitamin D deficiency 347 17021 E55.9 Level 15. Started on weekly supplement and trend level as OP. Constipation 99680743 K5 9.00 Stable. Continue daily Miralax.Ad ditional meds available per standing orders. Allergic rhinitis 494668 04 J30.9 Stable. Continue daily flonase. Glaucoma 66645056 H40.9 Presumed stable. Continue Latanopros t.Outpatie nt f/u with ophtho. Recurrent falls 18241079 2 R29.6 Likely multifacto rial in nature.Con ssis etl developer checking vitamin D level.Rece nt Vitamin B12 level normal.Con tinue therapies. Laceration of left forearm [id number] 0222025 S51.812D Repaired at [facility] on 01/09.Sutur es removed on 01/21. Healed. Physical deconditioning 8057769624 9102 R68.89 Related to advanced age, recent hospitaliz ation, comorbidit ies.Therap ies have been initiated - will monitor progress.G oal is for patient to return to his ILF home at - no alternate discharge plan is in place. Have discussed with importance of plan B in the event that the patient does not progress with therapy and requires alternate placement upon discharge from SNF. Peripheral vascular disease 077377526 I73.[address] Hwang's office note from today: Periphera l vascular disease with moderate to severe stenosis of both renal arteries. CTA shows moderate right external iliac stenosis, severe SFA stenosis. Left leg with severe common iliac stenosis a as well as SFA stenosis. Given his clinical presentati on, peripheral angiograph y was offered to assess the extent of peripheral vascular disease on possible interventi on... They are agreeable to proceed.F /U with Dr. Hwang as directed. [id number] Corazon Mckinney DO [address] [address] 02/22/2024 16:10:24 03/09/2024 09:28:37 Hypertensive heart disease with congestive heart failure 2379869 I11.0 BPs soft, resulting in nursing periodical ly holding Metoprolol and/or Entresto. Stopped Imdur and reduced Entresto & Spironolac tone dosing.Con tinue Metoprolol , Lasix, and Entresto.C ontinue to trend blood pressures, monitor lytes and renal function, and adjust meds as clinically indicated. F/U with Dr. Hwang. Last seen on 02/18 with plan to move forward with revascular ization procedure on 02/28. Congestive heart failure 27634480 I50.9 TTE on 01/14 EF 55-70%, mild atrial enlargemen t, RV volume overload with elevated RV end -diastolic pressure.L asix dose adjusted during his inpatient stay - was taking 20 mg BID prior to his recent hospitaliz ation. Now on 20 mg daily with addition of Aldactone. Continue Entresto and Spironolac tone, both recently reduced sec to soft BPs.SEE ABOVE... Atrial fibrillation 4943 6004 I48.91 Rate is controlled with Metoprolol .Continue Eliquis for VTE prophylaxi s.F/U with Dr. Hwang as directed. Peripheral vascular disease 001961109 I73.[address] Hwang's office note from 02/18: Periphera l vascular disease with moderate to severe stenosis of both renal arteries. CTA shows moderate right external iliac stenosis, severe SFA stenosis. Left leg with severe common iliac stenosis a as well as SFA stenosis. Given his clinical presentati on, peripheral angiograph y was offered to assess the extent of peripheral vascular disease on possible interventi on... They are agreeable to proceed.S EE ABOVE... Multiple o pen wounds of lower leg 286946066 S81.809D Continue current wound care.SWM TOGGLER to follow weekly. Hyponatremia 83154994 E8 7.1 Newly diagnosed with hypothyroi dism. Levothyrox ine has been started.Co ntinue Furosemide & Spironolac tone.Trend serum sodium levels. Had trended 130-131 here, but most recently was 139.Consid er fluid restrictio n if worsening. Avoid additional aggravatin g meds. Gastrointe stinal hemorrhage 15573170 K92.2 due to severe gastritis and esophagiti s. GI has documented that anticoagul ation is OK to continue as long as the patient has not evidence of active bleeding with melena or hematochez ia.Continu e high dose PPI therapy.Hg b has been very slowly improving, most recently 10.5.Plan is for GI f/u 3 months for repeat EGD. Gastritis 2124267 K29.70 SEE ABOVE... Anemia 737930498 D64.9 Related to above.Cont inue folate replacemen t.Pt did not tolerate oral iron tablets (nausea) so discontinu ed while inpatient. Hgb has been improving. Trend CBC. Hypothyroidism 90945496 E03.9 Newly diagnosed while hospitaliz ed at [facility].C ontinue newly-adde d low-dose Synthroid. f/u thyroid studies 6-8 weeks (Mar 2024). Hyperlipidemia 84686696 E78.5 Presumed stable. Continue statin. Major depr essive disorder 317069499 F32.9 Dr. Duque transition ed Sertraline to Mirtazapin e on 01/28 in hopes it will help his appetite. Mood has been stable. Generalize d anxiety disorder 99601041 F41.1 Patient takes routine Alprazolam as an outpatient at bedtime.Jayesh morris reports this helps patient sleep through the night, as well. Not ideal treatment in this elderly man with recent falls but due to longstandi ng use, will continue as a PRN med for now. Consider transition to alternate therapy during his stay or as an outpatient . Trazodone might be a good option. Vitamin D deficiency 347 38698 E55.9 Level 15. Started on weekly supplement and trend level as OP. Constipation 51199499 K5 9.00 Stable. Continue daily Miralax.Ad ditional meds available per standing orders. Allergic rhinitis 073639 04 J30.9 Stable. Continue daily flonase. Glaucoma 38958067 H40.9 Presumed stable. Continue Latanopros t.Outpatie nt f/u with ophtho. Recurrent falls 67754881 2 R29.6 Likely multifacto rial in nature.Con ssis etl developer checking vitamin D level.Rece nt Vitamin B12 level normal.Con tinue therapies. Laceration of left forearm 9044103921 9413598 S51.812D Repaired at [facility] on 01/09.Sutur es removed on 01/21. Healed. [id number] Corazon Mckinney DO [address] [address] [place] [address] 03/03/2024 14:30:15 03/17/2024 07:52:00 Hypertensive heart disease with congestive heart failure 9050701 I11.0 BPs soft, resulting in nursing periodical ly holding Metoprolol and/or Entresto. Stopped Imdur and reduced Entresto & Spironolac tone dosing.Con tinue Metoprolol , Lasix, and Entresto.C ontinue to trend blood pressures, monitor lytes and renal function, and adjust meds as clinically indicated. F/U with Dr. Hwang as scheduled 04/08 Peripheral vascular disease 062506807 I73.9 s/p stenting of the left posterior tibial artery per angiogram 02/29/[address] Silver x added to medication continue optimal blood pressure control and statin therapyCon tinue to monitor clinically - fu as scheduled with Dr. Hwang 04/08 Multiple o pen wounds of lower leg 215180982 S81.809D Continue current wound care.SWM TOGGLER is following weekly - no concern for infection of left heel wound on exam today Congestive heart failure 62221245 I50.9 TTE on 01/14 EF 55-70%, mild atrial enlargemen t, RV volume overload with elevated RV end -diastolic pressure.L asix dose adjusted during his inpatient stay - was taking 20 mg BID prior to his recent hospitaliz ation. Now on 20 mg daily with addition of Aldactone. Continue Entresto and Spironolac tone, both recently reduced sec to soft BPs.SEE ABOVE... Atrial fibrillation 4943 6004 I48.91 Rate is controlled with Metoprolol .Continue Eliquis for VTE prophylaxi s.F/U with Dr. Hwang as directed. Hyponatremia 90594959 E8 7.1 Newly diagnosed with hypothyroi dism. Levothyrox ine has been started.Co ntinue Furosemide & Spironolac tone.Trend serum sodium levels. Had trended 130-131 here, but most recently was 139.Consid er fluid restrictio n if worsening. Avoid additional aggravatin g meds. Gastrointe stinal hemorrhage 92095611 K92.2 due to severe gastritis and esophagiti s. GI has documented that anticoagul ation is OK to continue as long as the patient has not evidence of active bleeding with melena or hematochez ia.Continu e high dose PPI therapy.Hg b has been very slowly improving, most recently 10.5 - monitor closely with addition of plavix after recent LE stenting - f/u labs ordered for 03/07Plan is for GI f/u 3 months for repeat EGD. Gastritis 5307006 K29.70 SEE ABOVE... Anemia 022267513 D64.9 Related to above.Cont inue folate replacemen t.Pt did not tolerate oral iron tablets (nausea) so discontinu ed while inpatient. Hgb has been improving. Trend CBC. Hypothyroidism 80624924 E03.9 Newly diagnosed while hospitaliz ed at [facility].C ontinue newly-adde d low-dose Synthroid. f/u thyroid studies 6-8 weeks (Mar 2024). Hyperlipidemia 08865360 E78.5 Presumed stable. Continue statin. Major depr essive disorder 883469374 F32.9 Dr. Duque transition ed Sertraline to Mirtazapin e on 01/28 in hopes it will help his appetite. Mood has been stable. Generalize d anxiety disorder 50244804 F41.1 Patient was taking routine Alprazolam as an outpatient at bedtime.Jayesh morris reports this helps patient sleep through the night, as well. Not ideal treatment in this elderly man with recent falls but due to longstandi ng use this was continued prn. However, it is currently off his medication list for unclear reasons. Perhaps pharmacy discontinu ed. family and patient agreeable at this point to discontinu e and monitor symptoms. Will start Trazodone if alternate therapy is needed. Vitamin D deficiency 347 56224 E55.9 Level 15. Started on weekly supplement and trend level as OP. Constipation 25886598 K5 9.00 Stable. Continue daily Miralax.Ad ditional meds available per standing orders. Allergic rhinitis 437149 04 J30.9 Stable. Continue daily flonase. Glaucoma 74848648 H40.9 Presumed stable. Continue Latanopros t.Outpatie nt f/u with ophtho. Insomnia 754987040 F51.0 1 adding tylenol pm at bedtime which patient and reports he was taking at home [id number] Corazon Mckinney DO [address] [address] [place] [address] 03/06/2024 15:57:34 03/25/2024 13:16:00 Hypertensive heart disease with congestive heart failure 2714082 I11.0 BPs soft, resulting in nursing periodical ly holding Metoprolol and/or Entresto. Stopped Imdur and reduced Entresto & Spironolac tone dosing.Con tinue Metoprolol , Lasix, and Entresto.C ontinue to trend blood pressures, monitor lytes and renal function, and adjust meds as clinically indicated. F/U with Dr. Hwang as scheduled 04/08 Peripheral vascular disease 865573518 I73.9 s/p stenting of the left posterior tibial artery per angiogram 02/29/[address] Silver x added to medication continue optimal blood pressure control and statin therapyCon tinue to monitor clinically - fu as scheduled with Dr. Hwang 04/08 Multiple o pen wounds of lower leg 112169544 S81.809D Continue current wound care.SWM TOGGLER is following weekly - no concern for infection of left heel wound on exam todayconti nue routine tylenol and prn ultram Congestive heart failure 83314625 I50.9 TTE on 01/14 EF 55-70%, mild atrial enlargemen t, RV volume overload with elevated RV end -diastolic pressure.L asix dose adjusted during his inpatient stay - was taking 20 mg BID prior to his recent hospitaliz ation. Now on 20 mg daily with addition of Aldactone. Continue Entresto and Spironolac tone, both recently reduced sec to soft BPs.SEE ABOVE... Atrial fibrillation 4943 6004 I48.91 Rate is controlled with Metoprolol .Continue Eliquis for VTE prophylaxi s.F/U with Dr. Hwang as directed. Hyponatremia 45709047 E8 7.1 Newly diagnosed with hypothyroi dism. Levothyrox ine has been started.Co ntinue Furosemide & Spironolac tone.Trend serum sodium levels. Had trended 130-131 here, but most recently was 139.Consid er fluid restrictio n if worsening. Avoid additional aggravatin g meds. Gastrointe stinal hemorrhage 99624066 K92.2 due to severe gastritis and esophagiti s. GI has documented that anticoagul ation is OK to continue as long as the patient has not evidence of active bleeding with melena or hematochez ia.Continu e high dose PPI therapy.Hg b has been very slowly improving, most recently 10.5 - monitor closely with addition of plavix after recent LE stenting - f/u labs ordered for 03/07Plan is for GI f/u 3 months for repeat EGD. Gastritis 2189403 K29.70 SEE ABOVE... Anemia 795327979 D64.9 Related to above.Cont inue folate replacemen t.Pt did not tolerate oral iron tablets (nausea) so discontinu ed while inpatient. Hgb has been improving. Trend CBC. Hypothyroidism 30827207 E03.9 Newly diagnosed while hospitaliz ed at [facility].C ontinue newly-adde d low-dose Synthroid. f/u thyroid studies 6-8 weeks (Mar 2024). Hyperlipidemia 26879294 E78.5 Presumed stable. Continue statin. Major depr essive disorder 527348684 F32.9 Dr. Duque transition ed Sertraline to Mirtazapin e on 01/28 in hopes it will help his appetite. Mood has been stable. Generalize d anxiety disorder 67611663 F41.1 Patient was taking routine Alprazolam as an outpatient at bedtime.Jayesh morris reports this helps patient sleep through the night, as well. Not ideal treatment in this elderly man with recent falls but due to longstandi ng use this was continued prn. However, it is currently off his medication list for unclear reasons. Perhaps pharmacy discontinu ed. family and patient agreeable at this point to discontinu e and monitor symptoms. Will start Trazodone if alternate therapy is needed. Vitamin D deficiency 347 61130 E55.9 Level 15. Started on weekly supplement and trend level as OP. Constipation 73591772 K5 9.00 Stable. Continue daily Miralax.Ad ditional meds available per standing orders. Allergic rhinitis 957531 04 J30.9 Stable. Continue daily flonase. Glaucoma 93340788 H40.9 Presumed stable. Continue Latanopros t.Outpatie nt f/u with ophtho. Insomnia 771606504 F51.0 1 adding tylenol pm at bedtime which patient and reports he was taking at home [id number] Corazon Mckinney DO [address] [address] [place] [address] 03/26/2024 08:34:50 04/07/2024 09:28:10 Hypertensive heart disease with congestive heart failure 2735472 I11.0 BPs soft at times. Continue Metoprolol , Lasix, and Entresto with hold parameters in place.Cont inue to trend blood pressures, monitor lytes and renal function, and adjust meds as clinically indicated. F/U with Dr. Hwang as scheduled 04/08. Peripheral vascular disease 310731539 I73.9 s/p stenting of the left posterior tibial artery per angiogram on 02/29/[address] Hwang.Plav ix added to medication . Continues on Atorvastat in and Eliquis, as well.Marlene nue optimal blood pressure control.Gopi welch clinically . F/U as scheduled with Dr. Hwang on 04/08. Congestive heart failure 46307040 I50.9 TTE on 01/14 EF 55-70%, mild atrial enlargemen t, RV volume overload with elevated RV end -diastolic pressure.L asix dose adjusted during his inpatient stay - was taking 20 mg BID prior to his recent hospitaliz ation. Now on 20 mg daily with addition of Aldactone. Continue Entresto, Lasix, and Spironolac tone.Trend weights & labs. Monitor for low BPs. Atrial fibrillation 4943 6004 I48.91 Rate is controlled with Metoprolol .Continue Eliquis for VTE prophylaxi s.F/U with Dr. Hwang as directed. Hyponatremia 58495584 E8 7.1 Newly diagnosed with hypothyroi dism. Levothyrox ine has been started.Co ntinue Furosemide & Spironolac tone.Trend serum sodium levels. Had trended 130-131 here, but most recently was 135.Consid er fluid restrictio n if worsening. Avoid additional aggravatin g meds. Gastrointe stinal hemorrhage 32497269 K92.2 due to severe gastritis and esophagiti s. GI has documented that anticoagul ation is OK to continue as long as the patient has not evidence of active bleeding with melena or hematochez ia. Hgb was as low as 7.Continue high dose PPI therapy.Gopi welch closely as pt is now on both Eliquis & Plavix after recent LLE stenting. F/U Hgb was 11.4.Pt will need F/U with GI for EGD, initially recommende d 3 months, which would be April 2024. Gastritis 1552675 K29.70 SEE ABOVE... Anemia 203652036 D64.9 Related to above.Cont inue folate replacemen t.Pt did not tolerate oral iron tablets (nausea) so discontinu ed while inpatient. Hgb has been improving. Trend CBC.SEE ABOVE... Hypothyroidism 92110187 E03.9 Newly diagnosed while hospitaliz ed at [facility].C ontinue newly-adde d low-dose Synthroid. f/u thyroid studies 6-8 weeks, will order for 04/01. Hyperlipidemia 84238847 E78.5 Presumed stable. Continue statin. Major depr essive disorder 334517663 F32.9 Transition ed Sertraline to Mirtazapin e on 01/28 in hopes it will help his appetite. Mood has been stable. Generalize d anxiety disorder 76182873 F41.1 Patient was taking routine Alprazolam as an outpatient at bedtime. Has been removed from this medication and are utilize Tylenol PM in its stead. Ideally would transition over to Trazodone in the future. Will keep an open conversati on with patient. Vitamin D deficiency 347 11068 E55.9 Level 15. Started on weekly supplement and trend level as OP. Constipation 68975622 K5 9.00 Stable. Continue daily Miralax.Ad ditional meds available per standing orders. Allergic rhinitis 483281 04 J30.9 Stable. Continue PRN ocean nasal spray.Flon ase has been discontinu ed per pt's request. Glaucoma 51488577 H40.9 Presumed stable. Continue Latanopros t.Outpatie nt f/u with ophtho. Insomnia 453278390 F51.0 1 SEE ABOVE... 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 Continue to tx with santyl & aquacel daily.Cont inue offloading with Prevalon boot.Marlene nue routine Tylenol and PRN Tramadol. [id number] Corazon Mckinney, [address] [address] [place] [address] 04/24/2024 10:45:02 04/28/2024 05:14:43 Hypertensive heart disease with congestive heart failure 2942274 I11.0 Stable. Continue Metoprolol , Lasix, and Entresto.C ontinue to trend blood pressures, monitor lytes and renal function, and adjust meds as clinically indicated. F/U with Dr. Hwang on 07/15. Last seen on 04/08 with NNO. Peripheral vascular disease 750471115 I73.9 s/p stenting of the left posterior tibial artery per angiogram on 02/29/[address] Hwang.Cont inues on Atorvastat in, Plavix, and Eliquis.Co ntinue optimal blood pressure control.Mo nitor clinically . F/U with Dr. Hwang on 07/15. Last seen on 04/08 with NNO. Congestive heart failure 09358514 I50.9 TTE on 01/14 EF 55-70%, mild atrial enlargemen t, RV volume overload with elevated RV end-diasto lic pressure.S table. Continue Entresto, Lasix, and Spironolac tone.Trend weights, edema, & labs.F/U with Dr. Hwang on 07/15. Last seen on 04/08 with NNO. Atrial fibrillation 4943 6004 I48.91 Stable. Rate is controlled with Metoprolol .Continue Eliquis for VTE prophylaxi s.F/U with Dr. Hwang as directed. Hyponatremia 40698038 E8 7.1 Recently diagnosed with hypothyroi dism. Levothyrox ine started.Co ntinue Furosemide & Spironolac tone.Most recently Na was 135. Continue to trend serum sodium levels.Aj id additional aggravatin g meds. Gastrointe stinal hemorrhage 70165965 K92.2 due to severe gastritis and esophagiti s. GI has documented that anticoagul ation is OK to continue as long as the patient has not evidence of active bleeding with melena or hematochez ia. Hgb was as low as 7.Continue high dose PPI therapy through this month, reduce to daily in May.Skye tor closely as pt is now on both Eliquis & Plavix.Pt will need F/U with GI Dr. Jaime for EGD, initially recommende d 3 months, which would be April 2024. Gastritis 6606844 K29.70 SEE ABOVE... Anemia 049620713 D64.9 Related to above.Cont inue folate replacemen t.Pt did not tolerate oral iron tablets (nausea) so discontinu ed while inpatient. Hgb has been improving. Trend CBC.SEE ABOVE... Hypothyroidism 14478485 E03.9 Newly diagnosed while hospitaliz ed at [facility].C ontinue newly-adde d low-dose Synthroid. F/U studies on 04/01 = TSH 1.859, Free T4 0.93. Hyperlipidemia 49714464 E78.5 Stable. FLP within desired limits. Continue statin. Major depr essive disorder 590150929 F32.9 Transition ed Sertraline to Mirtazapin e on 01/29/24 in hopes it will help his appetite. Mood has been stable. Generalize d anxiety disorder 70476975 F41.1 Patient was taking routine Alprazolam as an outpatient at bedtime. Has been removed from this medication and utilizing Tylenol PM in its stead. Ideally would transition over to Trazodone in the future. Will keep an open conversati on with patient. Insomnia 064119219 F51.0 1 SEE ABOVE... Vitamin D deficiency 347 93420 E55.9 Level 15. Started on weekly supplement and trend level as OP. Recently up to 25. Constipation 49569846 K5 9.00 Stable. Continue daily Miralax.Ad ditional meds available per standing orders. Allergic rhinitis 516614 04 J30.9 Stable. Continue PRN ocean nasal spray.Flon ase has been discontinu ed per pt's request. Glaucoma 19368617 H40.9 Presumed stable. Continue Latanopros t.Outpatie nt f/u with ophtho. 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 Continue to tx with aquacel daily.Cont inue offloading with Prevalon boot.Marlene nue routine Tylenol and PRN Tramadol. Osteoarthr itis of multiple joints 835354847 M15.9 Stable. Pt will see [facility] ortho tomorrow with injections to left knee & left shoulder.C ontinue routine APAP & PRN Tramadol. [id number] Corazon Mckinney DO [address] [address] [place] [address] 05/21/2024 09:20:16 05/31/2024 13:44:06 Hypertensive heart disease with congestive heart failure 5508374 I11.0 Stable. Continue Metoprolol , Lasix, and Entresto.C ontinue to trend blood pressures, monitor lytes and renal function, and adjust meds as clinically indicated. F/U with Dr. Hwang on 07/15. Last seen on 04/08 with NNO. Peripheral vascular disease 320583889 I73.9 s/p stenting of the left posterior tibial artery per angiogram on 02/29/[address] Hwang.Cont inues on Atorvastat in, Plavix, and Eliquis.Co ntinue optimal blood pressure control.Mo nitor clinically . F/U with Dr. Hwang on 07/15. Last seen on 04/08 with NNO. 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 Congestive heart failure 70146063 I50.9 TTE on 01/14 EF 55-70%, mild atrial enlargemen t, RV volume overload with elevated RV end-diasto lic pressure.S table. Continue Entresto, Lasix, and Spironolac tone.Trend weights, edema, & labs.F/U with Dr. Hwang on 07/15. Last seen on 04/08 with NNO. Atrial fibrillation 4943 6004 I48.91 Stable. Rate is controlled with Metoprolol .Continue Eliquis for VTE prophylaxi s.F/U with Dr. Hwang as directed. Hyponatremia 38442045 E8 7.1 Recently diagnosed with hypothyroi dism. Levothyrox ine started.Co ntinue Furosemide & Spironolac tone.Most recently Na was 135. Continue to trend serum sodium levels.Aj id additional aggravatin g meds. Osteoarthr itis of multiple joints 225899334 M15.9 Stable. Pt follows with [facility] ortho for injections to left knee & left shoulder, last done on 04/25.Marlene nue routine APAP & PRN Tramadol. Gastrointe stinal hemorrhage 41329135 K92.2 due to severe gastritis and esophagiti s. GI documented that anticoagul ation is OK to continue as long as the patient has not evidence of active bleeding with melena or hematochez ia. Hgb was as low as 7.Pt is on both Eliquis & Plavix.Has completed 3 months at high-dose Pantoprazo le. GI recommende d reducing to daily administra tion after 3 months. Will reduce today and monitor for S&S of GIB. Pt is aware to report these to nursing.Re minded staff/pt he needs f/u appt with Dr. Jaime (GI) scheduled as needs f/u EGD. Gastritis 0057610 K29.70 SEE ABOVE... Anemia 390982440 D64.9 Related to above.Cont inue folate replacemen t.Pt did not tolerate oral iron tablets (nausea) so discontinu ed while inpatient. Hgb has been improving. Trend CBC.SEE ABOVE... Hypothyroidism 48427114 E03.9 Newly diagnosed while hospitaliz ed at [facility].C ontinue newly-adde d low-dose Synthroid. F/U studies on 04/01 = TSH 1.859, Free T4 0.93. Hyperlipidemia 94936250 E78.5 Stable. FLP within desired limits. Continue statin. Major depr essive disorder 231205574 F32.9 Transition ed Sertraline to Mirtazapin e on 01/29/24 in hopes it will help his appetite. Mood has been stable. Generalize d anxiety disorder 28346718 F41.1 Patient was taking routine Alprazolam as an outpatient at bedtime. Has been removed from this medication and utilizing Tylenol PM in its stead. Ideally would transition over to Trazodone in the future. Will keep an open conversati on with patient. Insomnia 325053277 F51.0 1 SEE ABOVE... Vitamin D deficiency 347 20056 E55.9 Level 15. Started on weekly supplement and trend level as OP. Recently up to 25. Constipation 87472465 K5 9.00 Stable. Continue daily Miralax.Ad ditional meds available per standing orders. Allergic rhinitis 729383 04 J30.9 Stable. Continue PRN ocean nasal spray.Flon ase has been discontinu ed per pt's request. Glaucoma 66431932 H40.9 Presumed stable. Continue Latanopros t.Outpatie nt f/u with ophtho. [id number] Corazon Mckinney DO [address] [address] [place] [address] 06/18/2024 10:51:22 06/27/2024 09:47:56 Gastrointestinal hemorrhage 89196176 K92.2 due to severe gastritis and esophagiti s. GI documented that anticoagul ation is OK to continue as long as he is without evidence of active bleeding with melena or hematochez ia. Hgb was as low as 7.Pt is on both Eliquis & Plavix. Completed 3 months at high-dose Pantoprazo le and reduced to daily dosing on 05/21. Has been tolerating well without symptoms and f/u Hgb on 06/03 held steady at 12.5. Continue to monitor.F/ U with Dr. Jaime (GI) PRN. Gastritis 6306010 K29.70 SEE ABOVE... Anemia 713121490 D64.9 Related to above.Cont inue folate replacemen t.Pt did not tolerate oral iron tablets (nausea) so discontinu ed while inpatient. Hgb has been stable.SEE ABOVE... Hypertensi ve heart disease with congestive heart failure 5581268 I11.0 Stable. Continue Metoprolol , Lasix, and Entresto.C ontinue to trend blood pressures, monitor lytes and renal function, and adjust meds as clinically indicated. F/U with Dr. Hwang on 07/15. Last seen on 04/08 with NNO. Peripheral vascular disease 785619386 I73.9 s/p stenting of the left posterior tibial artery per angiogram on 02/29/[address] Hwang.Cont inues on Atorvastat in, Plavix, and Eliquis.Co ntinue optimal blood pressure control.Mo linseyor clinically . F/U with Dr. Hwang on 07/15. Last seen on 04/08 with NNO. 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 Congestive heart failure 26505588 I50.9 TTE on 01/14 EF 55-70%, mild atrial enlargemen t, RV volume overload with elevated RV end-diasto lic pressure.S table. Continue Entresto, Lasix, and Spironolac tone.Trend weights, edema, & labs.F/U with Dr. Hwang on 07/15. Last seen on 04/08 with NNO. Atrial fibrillation 4943 6004 I48.91 Stable. Rate is controlled with Metoprolol .Continue Eliquis for VTE prophylaxi s.F/U with Dr. Hwang as directed. Hyponatremia 59294747 E8 7.1 Recently diagnosed with hypothyroi dism. Levothyrox ine started.Co ntinue Furosemide & Spironolac tone.Most recently Na was 135. Continue to trend serum sodium levels.Aj id additional aggravatin g meds. Osteoarthr itis of multiple joints 546148790 M15.9 Stable. Pt follows with [facility] ortho for injections to left knee & left shoulder, last done on 04/25.Marlene nue routine APAP & PRN Tramadol. Hypothyroidism 10212133 E03.9 Newly diagnosed while hospitaliz ed at [facility].C ontinue low-dose Synthroid. F/U studies on 04/01/24 = TSH 1.859, Free T4 0.93. Hyperlipidemia 62518410 E78.5 Stable. FLP within desired limits. Continue statin. Major depr essive disorder 512925843 F32.9 Transition ed Sertraline to Mirtazapin e on 01/29/24 in hopes it will help his appetite. Mood has been stable. Generalize d anxiety disorder 53816034 F41.1 Patient was taking routine Alprazolam as an outpatient at bedtime. Has been removed from this medication and utilizing Tylenol PM instead. Ideally would transition over to Trazodone in the future. Will keep an open conversati on with patient. Insomnia 455668443 F51.0 1 SEE ABOVE... Vitamin D deficiency 347 63234 E55.9 Level 15. Started on weekly supplement and trend level as OP. Recently up to 25. Constipation 91293626 K5 9.00 Stable. Continue daily Miralax.Ad ditional meds available per standing orders. Allergic rhinitis 014498 04 J30.9 Stable. Continue PRN ocean nasal spray.Flon ase has been discontinu ed per pt's request. Glaucoma 79498399 H40.9 Presumed stable. Continue Latanopros t.Outpatie nt f/u with ophtho. [id number] Corazon Mckinney, DO [address] [address] [place] [address] 06/26/2024 03:33:43 06/28/2024 23:10:56 Hematemesis 2390091 K92.0 resolved at this timeplavix and eliquis briefly held during his hospitaliz ation - plavix resumed yesterday, eliquis to resume tomorrowHb with mild drop from 14.4 to 11.7GI consulted and did not recommend further testing at this time - continue PPI therapy (unclear why this medication was discontinu ed on hospital discharge) . [facility] with [facility]-8 weeksconti nue prn zofran Gastrointe stinal hemorrhage 83092402 K92.2 see above - due to severe gastritis and esophagiti s. GI documented that anticoagul ation is OK to continue as long as he is without evidence of active bleeding with melena or hematochez ia. Hgb has been as low as 7.Pt is on both Eliquis & Plavix. Completed 3 months of high-dose Pantoprazo le and reduced to daily dosing on 05/21. Increasing dose back to BID for now in light of recent hospital readmissio n and episodes of hematemesi sF/U with Dr. Jaime (GI) 6-8 weeksF/U CBC in am Anemia 987228664 D64.9 Related to above.Cont inue folate replacemen t.Pt did not tolerate oral iron tablets (nausea) so discontinu ed while inpatient. Hgb has been stable.SEE ABOVE... Hypertensi ve heart disease with congestive heart failure 5034717 I11.0 Stable. Continue Metoprolol , Lasix, and Entresto.C ontinue to trend blood pressures, monitor lytes and renal function, and adjust meds as clinically indicated. F/U with Dr. Hwang on 07/15. Last seen on 04/08 with NNO. Congestive heart failure 90558483 I50.9 TTE on 01/14 EF 55-70%, mild atrial enlargemen t, RV volume overload with elevated RV end-diasto lic pressure.S table. Continue Entresto, Lasix, and Spironolac tone.Trend weights, edema, & labs.F/U with Dr. Hwang on 07/15. Last seen on 04/08 with NNO. Atrial fibrillation 4943 6004 I48.91 Stable. Rate is controlled with Metoprolol .Continue Eliquis for VTE prophylaxi s.F/U with Dr. Hwang as directed. Peripheral vascular disease 351889669 I73.9 s/p stenting of the left posterior tibial artery per angiogram on 02/29/[address] Hwang.Cont inues on Atorvastat in, Plavix, and Eliquis.Co ntinue optimal blood pressure control. 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 Hyponatremia 45715641 E8 7.1 Recently diagnosed with hypothyroi dism. Levothyrox ine started.Co ntinue Furosemide & Spironolac tone.Marlene nue to trend serum sodium levels.Aj id additional aggravatin g meds. Osteoarthr itis of multiple joints 323256868 M15.9 Stable. Pt follows with [facility] ortho for injections to left knee & left shoulder, last done on 04/25.Marlene nue routine APAP & PRN Tramadol. Hypothyroidism 64429184 E03.9 Newly diagnosed while hospitaliz ed at [facility].C ontinue low-dose Synthroid. F/U studies on 04/01/24 = TSH 1.859, Free T4 0.93. Hyperlipidemia 14753000 E78.5 Stable. FLP within desired limits. Continue statin. Major depr essive disorder 963655807 F32.9 Transition ed Sertraline to Mirtazapin e on 01/29/24 in hopes it will help his appetite. Mood has been stable. Generalize d anxiety disorder 13825248 F41.1 Patient was taking routine Alprazolam as an outpatient at bedtime. Has been removed from this medication and utilizing Tylenol PM instead with acceptable control Insomnia 079034075 F51.0 1 SEE ABOVE... Vitamin D deficiency 347 20970 E55.9 Level 15. Started on weekly supplement and trend level as OP. Recently up to 25. Constipation 06862546 K5 9.00 Stable. Continue daily Miralax.Ad ditional meds available per standing orders. Allergic rhinitis 612940 04 J30.9 Stable. Continue PRN ocean nasal spray and routine flonase (resumed per patient request) Glaucoma 63496437 H40.9 Presumed stable. Continue Latanopros t.Outpatie nt f/u with ophtho. Physical deconditioning 1187584989 9102 R53.81 related to advanced age, recent hospitaliz ation, comorbidit iesskilled services have been approved with update planned for 07/01- will monitor progresspa tient will remain at facility as LTC resident upon SNF discharge [id number] Corazon Mckinney, DO [address] [address] 06/27/2024 14:22:41 06/28/2024 23:10:08 Congestion of throat 224802994 R09.89 [facility] Flon[facility] Continue PRN nasal spray.Also receives Tylenol with Benadryl at bedtime. Hypokalemia 87041905 E87 .6 Supplement ing. Continue to trend level. Hematemesis 3735864 K92. 0 Due to severe gastritis and esophagiti s. Resolved at this time. Hgb with mild drop from 14.4 to 11.7. GI consulted and did not recommend further testing at this time. He was treated with IV PPI therapy while at [facility]. Plavix and Eliquis briefly held during his hospitaliz ation, Plavix resumed on 06/24 and Eliquis resumed on 06/25.Marlene nue high-dose PPI -- pt did not tolerate reduction to daily dosing despite 3 month course of high-dose treatment. Continue PRN Zofran.F/U with Dr. Jaime (GI) in 6-8 weeks -- nursing to schedule. Gastrointe stinal hemorrhage 07438737 K92.2 SEE ABOVE... Anemia 557094050 D64.9 Hgb has been stable.Con tinue folate replacemen t.Pt did not tolerate oral iron tablets (nausea) so discontinu ed.SEE ABOVE... Hypertensi ve heart disease with congestive heart failure 2757524 I11.0 Stable. Continue Metoprolol , Lasix, and Entresto.C ontinue to trend blood pressures, monitor lytes and renal function, and adjust meds as clinically indicated. F/U with Dr. Hwang on 07/15. Last seen on 04/08 with NNO. Congestive heart failure 08689900 I50.9 TTE on 01/14 EF 55-70%, mild atrial enlargemen t, RV volume overload with elevated RV end-diasto lic pressure.S table. Continue Entresto, Lasix, and Spironolac tone.Trend weights, edema, & labs.F/U with Dr. Hwang on 07/15. Last seen on 04/08 with NNO. Atrial fibrillation 4943 6004 I48.91 Stable. Rate is controlled with Metoprolol .Continue Eliquis for VTE prophylaxi s.F/U with Dr. Hwang as directed. Peripheral vascular disease 750972178 I73.9 s/p stenting of the left posterior tibial artery per angiogram on 02/29/[address] Hwang.Cont inues on Atorvastat in, Plavix, and Eliquis.Co ntinue optimal blood pressure control. 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 Hyponatremia 91150367 E8 7.1 Stable. Continue to trend serum sodium levels.Aj id additional aggravatin g meds. Osteoarthr itis of multiple joints 866039066 M15.9 Stable. Pt follows with [facility] ortho for injections to left knee & left shoulder, last done on 04/25.Marlene nue routine APAP & PRN Tramadol. Hypothyroidism 04685903 E03.9 Stable. 04/01/24 = TSH 1.859, Free T4 0.93. Continue low-dose Synthroid. Hyperlipidemia 34143320 E78.5 Stable. FLP within desired limits. Continue statin. Major depr essive disorder 511565597 F32.9 Transition ed Sertraline to Mirtazapin e on 01/29/24 in hopes it will help his appetite. Mood has been stable. Generalize d anxiety disorder 38324269 F41.1 Patient was taking routine Alprazolam as an outpatient at bedtime. Has been removed from this medication and utilizing Tylenol PM instead with acceptable control. Insomnia 635354174 F51.0 1 SEE ABOVE... Vitamin D deficiency 347 94519 E55.9 Level 15. Started on weekly supplement and continue to trend level. Constipation 33904013 K5 9.00 Stable. Continue daily Miralax.Ad ditional meds available per standing orders. Allergic rhinitis 115592 04 J30.9 SEE ABOVE... Glaucoma 96099945 H40.9 Presumed stable. Continue Latanopros t.Outpatie nt f/u with ophtho. Physical deconditioning 4725474205 9102 R53.81 Related to advanced age, recent hospitaliz ation, comorbidit ies.Kiki lehman services have been approved with update planned for 07/01 - will monitor progress. Patient will remain at facility as LTC resident upon SNF discharge. Health Concerns Section Related Observation LastModified by Organization Detai ls LastModified Time None Recorded Concern Status LastModified by Organization Details LastModified Time None Recorded Advance Directives Directive None Recorded Payers Encounter Date Sequence Insurance Name Policy Number Policy Lucero Covered Member ID Lucero Member ID Guarantor Name 04/24/2024 1 [employer] (MEDICARE REPLACEMENT/ ADVANTAGE - PPO) [id number] Stefan Burr [id number] Edison Burr 05/21/2024 1 [employer] (MEDICARE REPLACEMENT/ ADVANTAGE - PPO) [id number] Stefan Burr [id number] Edison Burr 06/18/2024 1 [employer] (MEDICARE REPLACEMENT/ ADVANTAGE - PPO) [id number] Stefan Burr [id number] Edison Burr 06/25/2024 1 [employer] (MEDICARE REPLACEMENT/ ADVANTAGE - PPO) [id number] Stefan Burr [id number] Edison Burr 06/27/2024 1 [employer] (MEDICARE REPLACEMENT/ ADVANTAGE - PPO) [id number] Stefan Burr [id number] Edison Burr Notes Date Note Type Note Provider Name and Address Organization Details Recorded Time 04/24/2024 text/html F/U routine visi t with review of chronic medical conditions and medications. Delmar is seated in his w/c in his room, self-propelling about, with his by his side. He reports he is doing well overall and is without concerns today. He does note has had chronic OA pain of his left knee and left shoulder, for which he will be seen by [facility] ortho tomorrow with injections. He tells me that the ulceration on his left foot continues to become smaller every week. Currently tx with aquacel ag and dry dressing daily, followed by [facility] in-house. VSS. Staff is without concerns. No recent falls or acute illnesses. He continues to receive [place] [address] [place], [address], [facility] 04/24/2024 15:01:26 05/21/2024 text/html F/U routine visi t with review of chronic medical conditions and medications. Delmar is seated in his w/c in his room, self-propelling himself around, is without concerns or pain to report today. He continues to be followed by [facility] weekly for his LE ulcer, which he reports has markedly improved and is nearly gone. He will be seen by them today. We discuss the plan to reduce his PPI to daily and S&S of GI bleed to report to nursing should they occur. We also discuss his need for f/u with Dr. Jaime as recommended for EGD. VSS. Staff is without concerns. No recent falls or acute illnesses. He continues to receive therapy [place] [address] [facility], [place], [address], [facility] [facility] 05/22/2024 08:44:54 06/18/2024 text/html F/U routine visi t with review of chronic medical conditions and medications. Delmar is seated in the common area, waiting for his lunch to be served. He is in good spirits, reports his LE ulceration is all but healed and believes he won't need to be followed by wound care much longer. As such, he reports he no longer has pain. VSS. Staff is without concerns at the moment. No recent falls or acute illnesses reported. Delmar reports he has used up his therapy days but is considering paying privately for a few times a week. Juanita Armstrong, ISAAC [address] [facility], [place], [address], [place] - [facility] 06/18/2024 16:17:46 06/25/2024 text/html 89 year old LTC resident of this facility with past medical history of anxiety, depression, atrial fibrillation on Eliquis, right-sided heart failure preserved ejection fraction, hypertension, hyperlipidemia, hypothyroidism , Iron-deficiency anemia, severe erosive esophagitis, rulf-hi-hiwhefgj gastropathy readmitted to [place] subsequent to an inpatient stay at [facility] 06/23-06/24/2024 due to abdominal bloating and coffee ground emesis.He complained of intermittent bloating in his stomach with some nausea late last week. He had a few episodes of emesis over the weekend treated with prn Zofran. A large, dark brown emesis was noted late in the day 06/22. Stat labs ordered and he was again treated with zofran. Ultimately, he was sent out to the ER for further evaluation overnight 06/22.Of note, EGD was just done in January and noted severe erosive esophagitis - he has been on PPI therapy since that time - BID dosing was reduced to daily dosing in mid-May.Labs were stable on hospital admission. He was admitted to the hospitalist service with GI consultation. Per hospital discharge summary:Active Issues & Recommended Plan for Follow-up:Hematemesis , resolvedHx grade D esophagitis- Recent EGD at this facility indicating mild to moderate gastropathy and severe erosive esophagitis, currently on protonix BID- Reports two episodes of emesis brown in color- Hgb stable during admission, no further emesis after arrival- GI consulted, defer repeat EGD at this time as patient is already on proper treatment- Resumed plavix day of discharge, may resume eliquis 06/26/24- Tolerating GI soft diet prior to discharge- Follow up with PCP in 1 week with repeat labs- Follow up with GI as previously instructedAtrial fibrillation, chronicHFpEF, not acutely exacerbatedHypertensi on/hyperlipidemia- Continue home regimen with exception of eliquis, as aboveHypothyroidism- Continue levothyroxine Discontinued medications: tylenol and pantoprazoleDose adjusted medications: tramadolNew medications: NONE The patient is lying in his bed this evening feeling well. He has eaten 3 good meals today without GI upset and is looking forward to starting therapy in the AM - [employer] has approved SNF benefits with update scheduled for 07/01. He had a small BM earlier today - staff denies concern for bleeding. No nursing concerns. f/u labs are scheduled for [place] [address] [place], [address], [facility] [place] [facility] 06/26/2024 04:36:35 06/27/2024 text/html F/U allergic rhinitis/congestion, GI bleed, anemia, deconditioning, and chronic medical conditions.---06/25/24 The patient is lying in his bed this evening feeling well. He has eaten 3 good meals today without GI upset and is looking forward to starting therapy in the AM - [employer] has approved SNF benefits with update scheduled for 07/01. He had a small BM earlier today - staff denies concern for bleeding. No nursing concerns. f/u labs are scheduled for the am.---06/27/24Vince is seated in his w/c in the common area, his only concern is development of phlegm at night. He reports he develops thick, clear mucus in his throat after he lies down at night and that this results in him having to cough it up early in the morning. He denies any post-nasal drainage, sinus/nasal congestion, throat tenderness, respiratory symptoms, or GERD symptoms. He notes he gets a nasal spray in the morning and is wondering if this can be increased so he receives it at night, as well. Note, he is speaking of Flonase, of which he receives 2 sprays every morning. He otherwise has been eating and drinking well without concerns and is without concerns for recurrence of GIB. VSS. Staff is also without concerns beyond aforementioned. Per therapy notes = Conducted gait training with FWW ~50' Sebastian cues for turns and for wt shifting. sit/stand to FWW ModA of 1 cues for forward wt shift. sit/stand to sidebar pulling up to bar Sebastian of 1 Juanita Armstrong, TOGGLER [address] [facility], [place], [place], [id number], [facility] [place] [facility] 06/27/2024 16:31:42
--- NOTE | 2024-06-30 19:23 | PC.NURSE ---
NG tube hooked up to LIS at this time, 100ml of dark, coffee ground stomach contents in suction canister
[2024-06-30 19:28] LABS: Troponin I < 0.012 ng/mL (0.000-0.034)
[2024-06-30] MEDS: SODIUM CHLORIDE 0.9% IV 2,000 ML 999 ML IV CONT (20:06)
--- NOTE | 2024-06-30 20:07 | PC.NURSE ---
patient declined morphine dose at this time
[2024-06-30] MEDS: PANTOPRAZOLE SODIUM IV 40 MG VIAL IV PUSH (20:18)
--- NOTE | 2024-06-30 20:40 | PC.NURSE ---
patient has a urinal and is attempting to provide a urine sample, declines straight cath at this time
[2024-06-30 20:43] LABS: Reflex Lactic Acid Yes or No Add Lactic
[2024-06-30 21:20] LABS: Add Urine Microscopic? YES; Appearance Urine Cloudy (Clear); Bacteria Urine 1+ /hpf; Bilirubin Urine Negative (Negative); Blood Urine Negative (Negative); Color Urine Yellow (Yellow); Glucose Urine UA Negative (Negative); Ketones Urine 1+ mg/dL (Negative); Leukocyte Esterase Ur Negative LEU/UL (Negative); Need Manual Microscopic Reviewed; Nitrate Urine Negative (Negative); Protein Urine Trace mg/dL (Negative); RBC Urine 0-2 /hpf (0-2); Specific Grav Ur 1.036 (1.001-1.035); Squamous Epithelial Cell Urine Moderate /hpf (Few); pH Urine 7.5 (5.0-9.0)
[2024-06-30 21:20] LABS: Lactic Acid 1.5 mmol/L (0.7-2.0)
[2024-06-30 21:28] LABS: Magnesium 1.5 mg/dL (1.6-2.3)
[2024-06-30] MEDS: METOPROLOL TARTRATE INJ 5 MG/5 ML VIAL 2.5 MG IV PUSH (21:30)
[2024-06-30 21:39] LABS: NT Pro B Type Natriuretic Pept 3290 pg/mL (19.9-100)
[2024-06-30] MEDS: AMIODARONE 150 MG/D5W 100 ML 150 MG/100 ML BAG 600 MG IV CONT (21:54)
[2024-06-30] MEDS: PHENYLEPHRINE 1,000 MCG/10 ML SYRINGE 100 MCG IV PUSH (22:05)
[2024-06-30 22:24] LABS: Hemoglobin 11.8 g/dL (14.0-18.0)
[2024-06-30] MEDS: MAGNESIUM SULF 1 GM/D5W 100 ML 1 GM/100 ML BAG IVPB (22:24)
[2024-06-30] MEDS: PIPERACILLIN/TAZ 4.5G/NS 100ML 4.5 GM/100 ML BAG IVPB (22:28)
[2024-06-30 22:36] LABS: INR 1.4; Prothrombin Time 17.7 Seconds (11.1-14.7)
[2024-06-30 22:37] LABS: Partial Thromboplastin Time 30.6 Seconds (22.3-36.8)
[2024-06-30] MEDS: NOREPINEPHRINE 8 MG/D5W 250 ML 8 MG/250 ML BAG 9.38 MG IV CONT (22:40)
--- NOTE | 2024-06-30 23:03 | WPDHPUPDATE1 ---
History and Physical Update Update Date/Time: 06/30/24 23:03 History and Physical has been reviewed, including an updated exam of the patient. There are NO changes in the patient's condition. Risks, benefits, and alternatives have been discussed and questions answered. Patient agrees to proceed with procedure.
--- NOTE | 2024-06-30 23:03 | PM.IMHP ---
H&P: HPI History of Present Illness Date/Time: 06/30/24 23:03 Chief Complaint: Abdominal pain Narrative: This is an 89-year-old man who presented to the emergency department with generalized abdominal pain. He started having pain earlier this morning. He has had abdominal pains and was recently at [place] emergency department. Nothing was identified as a potential cause there. He denies any prior abdominal surgery history. Upon presentation here this evening he was tachycardic. He had an elevated white blood count and CT showed evidence of pneumatosis of the cecum as well as portal venous gas. He remained tachycardic despite 2 L of IV crystalloid. He has a history of AFib and is on hold Eliquis. Review of Systems Review of Systems: All systems reviewed & are unremarkable except as noted in HPI and below Eyes: Eyes: Denies change in vision ENT: Denies hearing loss, Denies neck pain and Denies sore throat Cardiovascular: Cardiovascular: Denies chest pain and Denies dyspnea Respiratory: Respiratory: Denies cough, Denies dyspnea and Denies wheezing Gastrointestinal: Gastrointestinal: Reports as per HPI Genitourinary: Genitourinary: Denies hematuria and Denies dysuria Musculoskeletal: Musculoskeletal: Denies arthralgias, Denies joint swelling and Denies neck pain Allergic/Immunologic: Allergic/Immunologic: Denies wheezing PMFSH Past Medical History Medical History COVID-19 vaccine series completed (~03/2020) Coronary artery disease Glaucoma Hyperlipidemia Essential hypertension Surgical History Surgical History History of detached retina repair left eye History of tonsillectomy and adenoidectomy History of cardiac catheterization (~04/2019) with old prior occlusions noted, not a candidate for stent at that time per patient report Family History Family History Father Cerebral aneurysm Mother Heart disease Social History Social History Social History: He has been since 1957. He and his living [place]. He is retired from [employer]. They have 5 biological children and adopted 2 of their grand children. He usually drinks 3-4 mixed drinks a night. He is independent in activities of daily living and still drives. Code Status: DNR/DNI (I personally had a discussion with the patient regarding goals of care and code status. He verbalized that he would be okay with full treatment until the event of cardiac arrest. If that were to occur he would not want CPR or intubation) Smoking packs per day: 1 Smoking cigarettes per day: 20.0 Years smoked: 5 Smoking pack-years: 5.00 Smoking status: Former smoker Tobacco type: cigarettes Second hand tobacco smoke exposure: No Alcohol intake: current Drinks per week: 3 Substance use: never Lack of Transportation: No Lack of Food: Never True Current Housing: I Have Housing Concerned About Future Housing: No Difficulty Paying Gas/Electric Bills: No Difficulty Paying for Meds: No Currently Unemployed: No Education: Decline to Answer Difficulty w/ Childcare or Family Care: No Gender identity (if verbalized by the patient): Male Sexual Orientation (if Verbalized by the Patient): Straight or Heterosexual Spiritual care concerns: No Meds Home Medications and Allergies Home Medications ?Medication ?Instructions ?Recorded ?Confirmed ?Type isosorbide mononitrate 30 mg 30 mg PO DAILY 02/02/19 06/03/22 History tablet,extended release 24 hr loratadine 10 mg tablet (Claritin) 10 mg PO DAILY PRN Allergic 08/13/20 06/03/22 History Symptoms furosemide 20 mg tablet 20 mg PO BID 09/22/21 06/03/22 History aspirin 81 mg tablet,delayed 81 mg PO DAILY 09/23/21 06/03/22 History release atorvastatin 20 mg tablet 20 mg PO DAILY 09/23/21 06/03/22 History diphenhydramine 25 2 tablet PO HS 09/23/21 06/03/22 History mg-acetaminophen 500 mg tablet (Tylenol PM Extra Strength) escitalopram oxalate 10 mg tablet 10 mg PO DAILY 09/23/21 06/03/22 History (Lexapro) fluticasone propionate 50 2 spray intranasal HS 09/23/21 06/03/22 History mcg/actuation nasal spray,suspension latanoprost 0.005 % eye drops 1 drp LEFT EYE QPM 09/23/21 06/03/22 History sacubitril 24 mg-valsartan 26 mg 1 tablet PO BID 09/23/21 06/03/22 History tablet (Entresto) alprazolam 0.25 mg tablet 0.25 mg PO HS PRN Anxiety #12 tabs 09/27/21 06/03/22 Rx magnesium oxide 400 mg (241.3 mg 400 mg PO QAM #30 tabs 09/27/21 06/03/22 Rx magnesium) tablet brimonidine 0.2 %-timolol 0.5 % 1 drp EACH EYE Q12H 06/03/22 06/03/22 History eye drops (Combigan) metoprolol succinate 100 mg 100 mg PO Q12H 06/03/22 06/03/22 History tablet,extended release 24 hr (Toprol XL) cephalexin 500 mg capsule 500 mg PO Q6HR #20 caps 06/07/22 Rx cephalexin 500 mg tablet 500 mg PO Q6H 7 days #28 tabs 01/10/24 Rx Allergies Allergy/AdvReac Type Severity Reaction Status Date / Time No Known Allergies Allergy Verified 01/10/24 19:35 Vital Signs Vital Signs - 24 hr 06/30/24 18:09 06/30/24 18:34 06/30/24 18:39 Temperature Pulse Rate 146 H 171 H 158 H Respiratory Rate 17 33 H 29 H Blood Pressure 125/73 Pulse Oximetry 98 94 Oxygen Delivery Oxygen Flow Rate 06/30/24 18:57 06/30/24 19:00 06/30/24 19:08 Temperature Pulse Rate 159 H 155 H Respiratory Rate 11 L 15 Blood Pressure Pulse Oximetry 91 Oxygen Delivery Nasal Cannula Oxygen Flow Rate 2 06/30/24 19:11 06/30/24 19:15 06/30/24 19:41 Temperature Pulse Rate 163 H 163 H 142 H Respiratory Rate 21 H 22 H 22 H Blood Pressure Pulse Oximetry 92 Oxygen Delivery Oxygen Flow Rate 06/30/24 20:10 06/30/24 21:13 06/30/24 21:30 Temperature 98.3 F Pulse Rate 131 H 132 H 144 H Respiratory Rate 19 18 Blood Pressure 104/65 107/56 L Pulse Oximetry 95 Oxygen Delivery Oxygen Flow Rate 06/30/24 21:54 06/30/24 22:34 Temperature Pulse Rate 130 H 121 H Respiratory Rate Blood Pressure 63/45 L 49/36 L Pulse Oximetry Oxygen Delivery Oxygen Flow Rate Exam Const: General: alert; No acute distress Orientation/consciousness: patient oriented x3 Limitations: no limitations HENMT: Head: normocephalic and atraumatic Ears: hearing grossly normal bilaterally Face/Nose/Sinus: Normal external nose present and Normal nares present Mouth: Yes Normal oral and palatal mucosa present and Yes moist mucous membranes Eyes: General: appearance normal, both eyes and all related structures Conjunctivae: conjunctivae normal Sclera: sclerae normal Pupils: Equal, round and reactive pupils present EOM: EOMs intact bilaterally Neck: Neck: normal visual inspection, full ROM, no lymphadenopathy, supple and no JVD Lymphatic: no lymphadenopathy noted Chest: Chest palpation & inspection: normal inspection of the chest Resp: Effort & Inspection: normal respiratory effort and able to speak in complete sentences Auscultation: clear to auscultation bilaterally Percussion: percussion normal Cardio: Jugular venous distension: no JVD Rate: regular rate Rhythm: regular rhythm Heart sounds: S1 normal heart sound present and S2 normal heart sound present Peripheral pulses: Peripheral pulses 2+ throughout GI: Inspection: distended GI Palp: Yes Firmness to palpation present (GI), Yes Tenderness to palpation present (GI) (Diffuse peritonitis), Yes Guarding due to palpation present (GI) and Yes Rebound tenderness present Auscultation: absent bowel sounds : General: Yes no CVA tenderness Back/Spine/Pelvis: Back: no CVA tenderness Skin: General skin exam: normal color and dry skin Neuro: General: patient oriented x3, gait normal, moves all extremities, no focal motor deficits and CN's II-XI intact bilaterally Cranial nerves: Yes Equal, round and reactive pupils present Speech: normal speech Extrem: General: normal to inspection and capillary refill normal H&P: Results Labs Labs: Short CBC 06/30/24 06/30/24 Range/Units 18:41 22:18 WBC 20.2 H (4.5-10.0) K/mm3 Hgb 13.9 L 11.8 L (14.0-18.0) g/dL Hct 43.9 37.0 L (42.0-52.0) % Plt Count 194 D (150-375) k/mm3 BMP 06/30/24 18:41 Sodium 133 L Potassium 4.2 Chloride 96 L Carbon Dioxide 27 BUN 13 Creatinine 0.84 Glucose 100 Calcium 9.1 Cardiac Enzymes 06/30/24 Range/Units 18:40 Troponin I < 0.012 (0.000-0.034) ng/mL Liver Function 06/30/24 Range/Units 18:41 Total Bilirubin 1.3 (0.2-1.3) mg/dL AST 29 (17-59) U/L ALT 19 (6-50) U/L Alkaline Phosphatase 73 (38-126) U/L Albumin 4.2 (3.5-5.1) g/dL Urine 06/30/24 Range/Units 21:07 Urine Color Yellow (Yellow) Urine Appearance Cloudy H (Clear) Urine pH 7.5 (5.0-9.0) Ur Specific [place] 1.036 H (1.001-1.035) Urine Protein Trace (Negative) mg/dL Urine Glucose (UA) Negative (Negative) mg/dL Assessment and Plan Assessment and plan (1) Peritonitis (acute) generalized: Code(s): K65.0 - Generalized (acute) peritonitis Status: Acute Assessment and Plan: I have reviewed the CT. He appears to have evidence of pneumatosis of the cecum along with some terminal ileum bowel wall thickening. He also has portal venous gas which was not mentioned in the CT report. He is in septic shock with hypotension and tachycardia along with a likely source in the abdomen. Zosyn has been started and he has received IV crystalloid. I evaluated the patient in the emergency department and have discussed need for emergent exploratory laparotomy, possible bowel resection, possible ostomy. Patient voices understanding and is willing to proceed. His family is present as well and they are in agreement. He does have a modified DNR code. He and his family have confirmed that he does not want chest compressions or cardioversion, but is willing to have intubation for the surgery and any medication resuscitation and treatment. I also discussed that he might remain intubated after the surgery until it is safe to extubate him based on his overall condition. (2) Acute ischemia of large intestine: Code(s): K55.039 - Acute (reversible) ischemia of large intestine, extent unspecified Status: Acute (3) Septic shock: Code(s): A41.9 - Sepsis, unspecified organism; R65.21 - Severe sepsis with septic shock Status: Acute (4) Atrial fibrillation: Code(s): I48.91 - Unspecified atrial fibrillation Status: Acute
--- NOTE | 2024-06-30 23:07 | WPDANESEPPF ---
Anes - Initial Pre Proc Eval Procedure: Operation Date: 06/30/24 23:30 Proposed Procedures p Exploratory Laparotomy, Pos Bowel Resec - Ketan Milligan DO Date/Time: 06/30/24 23:07 Pre Op Diagnosis: RUQ pain/Afib RVR Patient Data Age: 89 Gender: M Height: 1.8 m Weight: 105.2 kg Last Vital Signs Temp 36.8 C 06/30/24 21:13 Pulse 121 H 06/30/24 22:34 Resp 18 06/30/24 21:13 BP 49/36 L 06/30/24 22:34 Pulse Ox 95 06/30/24 21:13 O2 Del Method Nasal Cannula 06/30/24 19:08 O2 Flow Rate 2 06/30/24 19:08 Allergies Allergy/AdvReac Type Severity Reaction Status Date / Time No Known Allergies Allergy Verified 01/10/24 19:35 Home Medications ?Medication ?Instructions ?Recorded ?Confirmed ?Type isosorbide mononitrate 30 mg 30 mg PO DAILY 02/02/19 06/03/22 History tablet,extended release 24 hr loratadine 10 mg tablet (Claritin) 10 mg PO DAILY PRN Allergic 08/13/20 06/03/22 History Symptoms furosemide 20 mg tablet 20 mg PO BID 09/22/21 06/03/22 History aspirin 81 mg tablet,delayed 81 mg PO DAILY 09/23/21 06/03/22 History release atorvastatin 20 mg tablet 20 mg PO DAILY 09/23/21 06/03/22 History diphenhydramine 25 2 tablet PO HS 09/23/21 06/03/22 History mg-acetaminophen 500 mg tablet (Tylenol PM Extra Strength) escitalopram oxalate 10 mg tablet 10 mg PO DAILY 09/23/21 06/03/22 History (Lexapro) fluticasone propionate 50 2 spray intranasal HS 09/23/21 06/03/22 History mcg/actuation nasal spray,suspension latanoprost 0.005 % eye drops 1 drp LEFT EYE QPM 09/23/21 06/03/22 History sacubitril 24 mg-valsartan 26 mg 1 tablet PO BID 09/23/21 06/03/22 History tablet (Entresto) alprazolam 0.25 mg tablet 0.25 mg PO HS PRN Anxiety #12 tabs 09/27/21 06/03/22 Rx magnesium oxide 400 mg (241.3 mg 400 mg PO QAM #30 tabs 09/27/21 06/03/22 Rx magnesium) tablet brimonidine 0.2 %-timolol 0.5 % 1 drp EACH EYE Q12H 06/03/22 06/03/22 History eye drops (Combigan) metoprolol succinate 100 mg 100 mg PO Q12H 06/03/22 06/03/22 History tablet,extended release 24 hr (Toprol XL) cephalexin 500 mg capsule 500 mg PO Q6HR #20 caps 06/07/22 Rx cephalexin 500 mg tablet 500 mg PO Q6H 7 days #28 tabs 01/10/24 Rx Laboratory Tests 06/30/24 06/30/24 06/30/24 18:40 18:41 21:06 WBC 20.2 H K/mm3 (4.5-10.0) RBC 4.45 L M/mm3 (4.6-6.20) Hgb 13.9 L g/dL (14.0-18.0) Hct 43.9 % (42.0-52.0) MCV 98.7 fl (80-100) MCH 31.2 pg (26-34) MCHC 31.7 L g/dl (32-36) RDW 13.6 % (11.5-14.5) Plt Count 194 D k/mm3 (150-375) MPV 8.4 fl (7.4-10.4) Immature Gran % (Auto) 0.5 % (0-0.5) Neut % (Auto) 94.0 H % (45.5-73.1) Lymph % (Auto) 3.0 L % (18.3-44.2) [place] % (Auto) 2.1 L % (2.6-8.5) Eos % (Auto) 0.2 % (0-4.4) Baso % (Auto) 0.2 % (0.2-1.2) Lymph # (Auto) 0.61 L K/mm3 (0.9-3.2) [place] # (Auto) 0.4 K/mm3 (0.1-0.6) Eos # (Auto) 0.0 K/mm3 (0-0.3) Baso # (Auto) 0.1 K/mm3 (0.0-0.1) Abs Immat Gran (auto) 0.10 H K/mm3 (0.00-0.031) Absolute Neuts (auto) 19.0 H K/mm3 (1.3-6.7) Absolute Nucleated RBC 0.000 K/mm3 (0.0-0.012) Band Neutrophils % Not Reportable Nucleated RBC % 0.0 % (0.0-0.2) Platelet Estimate Adequate (Adequate) Schistocytes None seen PT INR APTT Sodium 133 L mmol/L (137-145) Potassium 4.2 mmol/L (3.4-5.0) Chloride 96 L mmol/L (98-107) Carbon Dioxide 27 mmol/L (22-30) Anion Gap 10 mmol/L (4-12) BUN 13 mg/dL (9-20) Creatinine 0.84 mg/dL (0.7-1.3) Estim Creat Clear Calc 67 ml/min Estimated GFR > 60 (59 - ) Glucose 100 mg/dL (65-110) Lactic Acid 2.6 H mmol/L 1.5 mmol/L (0.7-2.0) (0.7-2.0) Calcium 9.1 mg/dL (8.4-10.2) Magnesium 1.5 L mg/dL (1.6-2.3) Total Bilirubin 1.3 mg/dL (0.2-1.3) AST 29 U/L (17-59) ALT 19 U/L (6-50) Alkaline Phosphatase 73 U/L (38-126) Troponin I < 0.012 ng/mL (0.000-0.034) NT-Pro-B Natriuret Pep 3290 H pg/mL (19.9-100) Total Protein 7.0 g/dL (6.3-8.2) Albumin 4.2 g/dL (3.5-5.1) Lipase 95 U/L (23-300) Urine Color Urine Appearance Urine pH Ur Specific [place] Urine Protein Urine Glucose (UA) Urine Ketones Ur Blood (Man) Urine Nitrate Urine Bilirubin Urine Urobilinogen Add Ur Microanalysis Leukocyte Esterase Rfl Urine RBC Urine WBC Ur Squamous Epith Cells Urine Bacteria Urine Casts Blood Type O Positive Antibody Screen Negative 06/30/24 06/30/24 21:07 22:18 WBC RBC Hgb 11.8 L g/dL (14.0-18.0) Hct 37.0 L % (42.0-52.0) MCV MCH MCHC RDW Plt Count MPV Immature Gran % (Auto) Neut % (Auto) Lymph % (Auto) [place] % (Auto) Eos % (Auto) Baso % (Auto) Lymph # (Auto) [place] # (Auto) Eos # (Auto) Baso # (Auto) Abs Immat Gran (auto) Absolute Neuts (auto) Absolute Nucleated RBC Band Neutrophils % Nucleated RBC % Platelet Estimate Schistocytes PT 17.7 H Seconds (11.1-14.7) INR 1.4 APTT 30.6 Seconds (22.3-36.8) Sodium Potassium Chloride Carbon Dioxide Anion Gap BUN Creatinine Estim Creat Clear Calc Estimated GFR Glucose Lactic Acid Calcium Magnesium Total Bilirubin AST ALT Alkaline Phosphatase Troponin I NT-Pro-B Natriuret Pep Total Protein Albumin Lipase Urine Color Yellow (Yellow) Urine Appearance Cloudy H (Clear) Urine pH 7.5 (5.0-9.0) Ur Specific [place] 1.036 H (1.001-1.035) Urine Protein Trace mg/dL (Negative) Urine Glucose (UA) Negative mg/dL (Negative) Urine Ketones 1+ H mg/dL (Negative) Ur Blood (Man) Negative (Negative) Urine Nitrate Negative (Negative) Urine Bilirubin Negative (Negative) Urine Urobilinogen 1.0 mg/dL (<2.0) Add Ur Microanalysis Reviewed Leukocyte Esterase Rfl Negative EARL/UL (Negative) Urine RBC 0-2 /hpf (0-2) Urine WBC 6-10 H /hpf (0-3) Ur Squamous Epith Cells Moderate /hpf (Few) Urine Bacteria 1+ H /hpf Urine Casts 3-5 Blood Type Antibody Screen Patient hx anesthesia problems: none Family hx anesthesia problems: none Results Review: All pre-operative results and documents have been reviewed as part of the pre-operative evaluation. [facility] Past Medical History Medical History COVID-19 vaccine series completed (~03/2020) Coronary artery disease Glaucoma Hyperlipidemia Essential hypertension Surgical History Surgical History History of detached retina repair left eye History of tonsillectomy and adenoidectomy History of cardiac catheterization (~04/2019) with old prior occlusions noted, not a candidate for stent at that time per patient report Family History Family History Father Cerebral aneurysm Mother Heart disease Social History Social History Social History: He has been since 1957. He and his living [place]. He is retired from [employer]. They have 5 biological children and adopted 2 of their grand children. He usually drinks 3-4 mixed drinks a night. He is independent in activities of daily living and still drives. Code Status: DNR/DNI (I personally had a discussion with the patient regarding goals of care and code status. He verbalized that he would be okay with full treatment until the event of cardiac arrest. If that were to occur he would not want CPR or intubation) Smoking packs per day: 1 Smoking cigarettes per day: 20.0 Years smoked: 5 Smoking pack-years: 5.00 Smoking status: Former smoker Tobacco type: cigarettes Second hand tobacco smoke exposure: No Alcohol intake: current Drinks per week: 3 Substance use: never Lack of Transportation: No Lack of Food: Never True Current Housing: I Have Housing Concerned About Future Housing: No Difficulty Paying Gas/Electric Bills: No Difficulty Paying for Meds: No Currently Unemployed: No Education: Decline to Answer Difficulty w/ Childcare or Family Care: No Gender identity (if verbalized by the patient): Male Sexual Orientation (if Verbalized by the Patient): Straight or Heterosexual Spiritual care concerns: No Anes - Eval Final PreProcedure Day of Procedure 06/30/24 23:07 Patient weight: obese Heart: regular rate and rhythm Lungs: clear to auscultation Airway: Mallampati scale class II Neurological: alert and oriented Last oral intake: >/= 8 hours ASA classification: IV Emergent: no Anesthetic plan: proceed Anesthesia type and monitoring: general ETT and standard monitoring Results Review: All pre-operative results and documents have been reviewed as part of the pre-operative evaluation. Informed Consent: The patient's anesthetic plan and its attendant risks and benefits were discussed with the patient/family/POA. Questions were solicited and answers provided to the satisfaction of the patient/family/POA.
[2024-06-30 23:26] LABS: D Dimer 1.21 ug/mL (<0.48)
--- NOTE | 2024-06-30 23:32 | PC.NURSE ---
total NG suction 800ml of dark brown coffee ground stomach contents from placement to admission to the OR Levo started in peripheral 18 g in the left ac. 2240 start time, at 5mcg, was titrated until pt left for OR by fuse cup expander. patient went to the OR at 2304, report was given to Edwardo RN at 2242. patients family electroplater automatic was called in and at bedside. patient was transported to the OR at 2304 attached to panel monitor, levo, magnesium, and bolus liter of fluids, 2L NC oxygen. NG remained in place. taped and secure at 65. peripheral ivs patent and infusing.
--- NOTE | 2024-06-30 23:44 | PC.NURSE ---
2129- prior to giving metoprolol for heart rate bp was noted to be low- discussed with Dr Puckett, who said to continue with metoprolol dose but to push the dose very slow, pause after 1 minute, take a new bp, and monitor patient half of metoprolol dose was given, patient became markedly hypotensive with SPB of 50. discussed with dairy farmer, rest of dose not given, discussed with Dr Puckett again who placed orders for mag, amio, phenylephrine which were hung per APR. pt blood pressure didn't respond. patient was being prepped for central line by Dr Puckett, while in trendelenberg position pt bp normalized. Dr Puckett discussed central line placement with anesthesiology in preop. levo was started piv due to drop in bp after phenylephrine wore off. patient was alert and oriented, and talking throughout. was able to sign consent in preop with bro newman, dr lr, anesthesiology, and family present.
[2024-07-01] VITALS (78 sets, daily range): BP systolic 61–159; BP diastolic 41–84; PULSE 80–152; RESP 16–22; TEMP 36.9–37.7; O2SAT 98–100; BMI 33.6
--- NOTE | 2024-07-01 | ECHO_ITS ---
Patient Info Name: Edison Burr Age: 89 years : 1935 Gender: Male Ht: 71 in Wt: 242 lbs BSA: 2.38 m2 HR: 110 bpm BP: 104 / 49 mmHg Technical Quality: Fair Exam Date: 07/01/2024 10:12 AM Patient Status: I Admit Date: 07/01/2024 Exam Type: CA echo dop color flow w con Complete two-dimensional, color flow and Doppler transthoracic echocardiogram is performed with contrast to opacify the left ventricle and to improve the deliniation of the left ventricle endocardial borders. Staff Referring Physician: Gian Doan MD Continuous Improvement Lead: Shania Villalobos Attending Provider: Ketan Milligan DO Contrast/Agitated Saline Contrast/Ag. Saline: Definity Amount: 3.00 ml Existing IV Access: Yes IV Access Condition: patent with no signs of infiltration Summary 1. The left ventricle is normal in size and systolic function. The left ventricular ejection fraction is visually estimated to be 60-65%. Paradoxical septum motion abnormality suggestive of bundle-branch block. 2. The right ventricle is poorly visualized however does appear mildly dilated with mildly reduced systolic function. 3. The valves are poorly visualized in this study however there does not appear to be any severe valvular abnormalities. Left Ventricle The left ventricle is normal in size and systolic function. The left ventricular ejection fraction is visually estimated to be 60-65%. Paradoxical septum motion abnormality suggestive of bundle-branch block. Right Ventricle The right ventricle is poorly visualized however does appear mildly dilated with mildly reduced systolic function. Left Atria The left atrium is mildly dilated. Right Atria The right atrium is moderately dilated. Atrial Septum No shunting by color Doppler. Aortic Valve The aortic valve is not well visualized but does appear to be calcified. Pulmonic Valve The pulmonic valve is not visualized. Mitral Valve The mitral valve is grossly normal. Tricuspid Valve The tricuspid valve is grossly normal. Pericardium/Pleural Pericardium is normal in appearance with no evidence for significant pericardial effusion. Inferior Vena Cava Dilated inferior vena cava with <50% collapse upon inspiration consistent with significantly elevated right atrial pressure, 15 mmHg. Left Ventricular Outflow Tract Name Value Normal LVOT 2D LVOT Diameter 2.0 cm LVOT Doppler LVOT Peak Velocity 104 cm/s LVOT Peak Gradient 4 mmHg LVOT Mean Gradient 2 mmHg LVOT VTI 17 cm LVOT VTI/AV VTI Ratio 0.6 LVOT Stroke Volume 50 ml LVOT CO 11.9 l/min LVOT CI 5.0 l/min/m2 Mitral Valve Name Value Normal MV Diastolic Function MV E Peak Velocity 109 cm/s MV A Peak Velocity 4 cm/s MV E/A 27.9 MV Decel Time (PW) 169 ms MV Annular TDI MV E/e' (Septal) 11.0 MV E/e' (Lateral) 10.5 MV E/e' (Average) 10.7 Tricuspid Valve Name Value Normal TV Regurgitation Doppler TR Peak Velocity 226 cm/s TR Peak Gradient 18 mmHg Estimated PAP/RSVP RA Pressure 15 mmHg <=5 PA Systolic Pressure 36 mmHg <36 RV Systolic Pressure 36 mmHg <36 TV Annular TDI TV Lateral Thalia s' Velocity 10.7 cm/s >=9.5 Aorta Name Value Normal Ascending Aorta Ao Root Diameter (MM) 4.2 cm Ao Root Diam Index (MM) 1.7 cm/m2 Aortic Valve Name Value Normal AV Doppler AV Peak Velocity 192 cm/s AV Peak Gradient 14 mmHg AV Mean Gradient 8 mmHg AV VTI 29 cm AV Area (Cont Eq VTI) 1.7 cm2 >=3.0 AV Area (Cont Eq Dick) 1.6 cm2 AV DI (Dick) 0.54 AV Regurgitation 2D LVOT Area 3.0 cm2 Ventricles Name Value Normal LV Dimensions 2D/MM IVS Diastolic Thickness (2D) 1.0 cm 0.6-1.0 LVID Diastole (2D) 4.2 cm 4.2-5.8 LVIW Diastolic Thickness (2D) 1.1 cm 0.6-1.0 LVID Systole (2D) 2.7 cm 2.5-4.0 LVOT Diameter 2.0 cm LV Mass (2D Cubed) 147.28 g 88.00-224.00 LV Mass Index (2D Cubed) 62 g/m2 49-115 Relative Wall Thickness (2D) 0.53 <=0.42 LV Fractional Shortening/Ejection Fraction 2D/MM LV Fractional Shortening (2D) 37 % 25-43 LV EF (2D Teichholz) 68 % LV Diastolic Volume (4C MOD) 34 ml LV EF (4C MOD) 68 % LV Diastolic Volume (2C MOD) 66 ml LV EF (2C MOD) 61 % LV Diastolic Volume (BP MOD) 47 ml 62-150 LV Diastolic Volume Index (BP MOD) 20 ml/m2 34-74 LV Systolic Volume (BP MOD) 17 ml 21-61 LV Systolic Volume Index (BP MOD) 7 ml/m2 11-31 LV EF (BP MOD) 63 % 52-72 LV Diastolic Length (4C) 6.4 cm LV Systolic Length (4C) 5.2 cm LV Stroke Volume (4C MOD) 23 ml RV Dimensions 2D/MM RVID Diastole (2D) 5.1 cm 2.1-3.5 Atria Name Value Normal LA Dimensions LA Volume (4C A-L) 72 ml LA Volume (BP A-L) 89 ml RA Dimensions RA Systolic Major Rainier Length (4C) 7.0 cm 2.1-2.7 RA Area (4C) 31.5 cm2 <=18.0 Report Signatures
--- NOTE | 2024-07-01 00:02 | P.PCNANE_ITS ---
Arterial Cath Proc Note Consent: I have discussed with the patient/family/POA, the non-emergent placement of an arterial catheter, including its clinical necessity/indication and associated potential risks and complications. The patient/family/POA and/or understand(s) and acknowledge(s) the need to proceed with the arterial catheter insertion as an important element of the patient's clinical management. Given emergent patient conditions, temporal constraints may have precluded informed consent. Time-Out: A pre-procedural Time-Out was completed immediately before starting the procedure and confirmed: Patient Identification, Site, Procedure, Patient Position and the Availability of Requisite Equipment. Procedure Note Problems: hypotension Patient position: supine Insertion site: left radial Method of insertion: surface landmarks Prawn Trawler Hand prep: sterile gloves, mask and hat Site prep: chlorahexadine Skin anesthesia: general anesthesia Gauge: 20 gauge Length (cm): 4.4 cm Closure/Dressing: antimicrobial disc and tegaderm Complications: None immediately noted/suspected.
--- NOTE | 2024-07-01 00:03 | WPDANESCVCPN ---
Anes - Cent Venous Cath Note Consent: I have discussed with the patient/family/POA, the non-emergent placement of a central venous catheter, including its clinical necessity/indication and associated potential risks and complications. The patient/family/POA understand(s) and acknowledge(s) the need to proceed with central venous catheter insertion as an important element of the patient's clinical management given emergent patient conditions, temporal constraints may have precluded informed consent. Time-Out: A pre-procedural Time-Out was completed immediately before starting the procedure and confirmed: Patient Identification, Site, Procedure, Patient Position and the Availability of Requisite Equipment. Procedure Note Clinical Indications: hypotension Patient position: trendelenburg Central venous catheter insertion site: right internal jugular CVC method of insertion: ultrasound-guided Hand hygiene/Aseptic technique: Hand hygiene procedures were performed. Aseptic technique was maintained throughout the procedure. Sterile barrier precautions: Maximal sterile barrier precautions, including use of a cap, mask, sterile gown, sterile gloves and a sterile full body drape. Site prep: duraprep Skin anesthesia: placed under general anesthesia Prydeinig: 7.5 Lumen: 3 Length (cm): 20 cm Depth of insertion (cm): 18 Closure/Dressing: suture, biopatch and tegaderm Complications: None immediately noted/suspected. Chest X Ray: Ordered/review to follow.
[2024-07-01 00:05] LABS: Base Excess ABG -8.3 mEq/l (+/-2.0); Carboxyhemoglobin 0.9 % THb (0-2.0); Fractional Inspired Oxygen 100 %; Methemoglobin ABG 0.3 %THb (0-1.5); Oxygen Content ABG 18.1 %vol (16.0-22.0); Oxygen Saturation ABG 99.8 % (95.0-100.0); Oxyhemoglobin 98.7 % THb (90.0-100.0); PCO2 ABG 39.9 mmHg (35.0-45.0); PO2 ABG 395.1 mmHg (80.0-100.0); PO2 FiO2 Ratio Arterial Blood 3.95 %; Reduced Hemoglobin 0.1 %THb (0-5.0); Total Hemoglobin 12.3 g/dL (12.0-18.0)
[2024-07-01 00:08] LABS: pH ABG 7.273 (7.350-7.450)
[2024-07-01 00:09] LABS: Arterial Blood Gas PEEP 0 cmH2O; Arterial Blood Gas Tidal Volume 500 ml; Arterial Blood Gas Vent Mode CMV; Arterial Blood Gas Ventilator rate 10 /MIN; Device VENTILATOR; Site Drawn ARTLINE
--- NOTE | 2024-07-01 00:39 | S_PTH ---
PATIENT: Edison Burr V LOC: [id number] U#:[id number] AGE/SX: 89/M ROOM: 243 RE07/01/[address]: Nasir Phillips MD : 1935 BED: 01 DIS: 07/07/2024 SPEC #: [id number] RECD: 07/02/24 07:30 STATUS: TUNDE REJaren #: [id number] YUNIOR: 07/01/24 00:[address]: Ketan Milligan DEPT: [facility] Surgical RECD BY: Sheryl Haynes ENTERED: 07/02/24 07:30 SP TYPE: Surgical OTHR DR: Antelmo Aguilar, DO Gian Hills MD Tissues: A - Colon Segment NonTumor Procedures: Hematoxylin and Eosin Stain Gross and Microscopic Level 5
--- NOTE | 2024-07-01 01:11 | P.OP_ITS ---
Procedure Note - Detailed Date of Procedure 07/01/24 Pre-op Diagnosis Acute bowel ischemia, septic shock Post-op Diagnosis Same Procedure Performed 1. Exploratory laparotomy 2. Right hemicolectomy with ileocolic anastomosis Surgeon Ketan Milligan, DO Anesthesia General Indications This is an 89-year-old man who presented to the emergency department on 06/30/2024 with generalized abdominal pain. His pain it started earlier that day and was continuing to progress. He was noted to be tachycardic with AFib with RVR. He also had an elevated white blood count 87513 and a slightly elevated lactic acid level. His blood pressure and began dropping in the emergency department as well. He was fluid resuscitated with [address] showed evidence of pneumatosis of the cecum and portal venous gas concerning for bowel ischemia. Discussions were made with the patient about treatment options and decision was made to proceed emergently with exploratory laparotomy, possible bowel resection, possible ostomy. Findings Exploratory laparotomy was performed. The cecum and ascending colon appeared ischemic with signs of necrosis of the cecum but no signs of perforation. The small intestine appeared overall healthy and viable. There were some areas of reactive erythema but the small bowel did not appear obviously ischemic. I was also able to palpate pulses in the mesentery along the small bowel. The mid transverse colon appeared healthy and viable along with the remainder of the colon distal. A right hemicolectomy was performed and a [id number] ileocolic anastomosis was performed. The anastomosis appeared healthy and viable. The abdomen was irrigated with sterile saline and 1 final inspection was made around the abdomen and the small bowel was run from ligament of Treitz all the way to the anastomosis. No other signs of ischemia were noted. Description of Procedure Procedure as well as risks, benefits, and alternatives were discussed with the patient. Written consent was obtained and placed in chart prior to procedure. Patient was brought back to surgical suite. He was placed supine on operating table. Time-out was done to confirm patient and procedure. He was then i ntubated by the anesthesia department. His abdomen was prepped and draped in sterile fashion using chlorhexidine prep. A 15 cm vertical midline incision was made from the upper abdomen to just below the umbilicus using a 10 blade scalpel. Electrocautery was used for hemostasis and for dissection through the subcutaneous tissue. The linea alba was then incised with electrocautery and then the peritoneum was entered with electrocautery. An Jaison wound protector was then inserted and the abdomen was carefully inspected. The cecum appeared somewhat floppy and the mesocolon was lax. This allowed me to easily deliver the cecum out through the midline incision inspected. The cecum was clearly ischemic and necrotic but there was no evidence of perforation. The ischemia appeared to extend all the way up the ascending colon to just around the proximal transverse colon. The mid transverse colon appeared healthy and viable. The ileum appeared healthy and viable as well. The lateral peritoneal attachments and hepatic flexure were carefully taken down using electrocautery. I then created a window in the mesocolon of the mid transverse colon using electrocautery hand then a ALE 75 mm blue load stapler was advanced across the mid transverse colon at this point and clamped and fired. I then also created a window in the mesentery of the terminal ileum with electrocautery and a ALE 75 mm blue load stapler was advanced across the terminal ileum at this point in clamped and fired. The mesocolon of the right colon was then taken down using LigaSure bipolar cautery. Hemostasis was achieved along the way. This freed up the specimen completely and it was then removed and sent to the lab for pathology. The ileum appeared to come up to the transverse colon without any tension. Enterotomies were made at the anti mesenteric border of the transverse colon and terminal ileum and a 75 mm blue load ALE stapler was advanced through each enterotomy and the bowel was clamped together in a [id number] fashion. The stapler was fired to create the [id number] anastomosis. The common enterotomy was then closed using a Tx 60 mm stapler. The anastomosis was inspected and appeared healthy and viable. The apex of the anastomosis was reinforced using a 3-0 silk seromuscular suture. The anterior surface of the anastomosis was also reinforced using 3-0 silk seromuscular imbricating sutures. The anastomosis was then released back down into the abdominal cavity. The small bowel was then run from the anastomosis proximally all the way to the ligament of Treitz. There was some reactive erythema to a couple segments of the small bowel but there did not appear to be any further ischemia. There were palpable pulses throughout the mesentery. The distal transverse colon, de scending colon, and sigmoid colon all appeared healthy and viable. The abdomen was then irrigated with sterile saline. Hemostasis appeared adequate no other abnormalities were noted. The NG tube was confirmed within the body of the stomach and was adequately decompressing the stomach. The Jaison wound protector was then removed. Sponge and needle counts were correct. The fascia was then approximated using 0 PDS running suture starting from each end and meeting in the middle. The skin was then approximated with a skin stapler. Telfa, 4 x 4 gauze, and Medipore tape were then applied. The patient was then left intubated and transferred to the ICU. Estimated Blood Loss 100 Pathology Yes (Right colon) Complications No immediate complications Condition Critical Disposition ICU [facility] Billing Surgery - Charge Forward: Surgery Billing
[2024-07-01] MEDS: MIDAZOLAM 100MG/NS 100ML(*CRX) 100 MG/100 ML BAG IV CONT (01:45)
[2024-07-01] MEDS: FENTANYL 2,500MCG/NS250ML(*CRX 2,500 MCG/250 ML BAG IV CONT (01:45)
[2024-07-01 02:04] LABS: Alveolar/Arterial O2 Gradient 160.1 mmHg; Base Excess ABG -5.3 mEq/l (+/-2.0); Device VENTILATOR; Fractional Inspired Oxygen 40 %; HCO3 ABG 20.4 mEq/l (22.0-26.0); Oxygen Content ABG 16.1 %vol (16.0-22.0); Oxygen Saturation ABG 94.7 % (95.0-100.0); Oxyhemoglobin 94.3 % THb (90.0-100.0); PCO2 ABG 40.6 mmHg (35.0-45.0); PO2 ABG 78.4 mmHg (80.0-100.0); PO2 FiO2 Ratio Arterial Blood 1.96 %; Site Drawn ARTLINE; Total Hemoglobin 12.1 g/dL (12.0-18.0)
[2024-07-01 02:05] LABS: Arterial Blood Gas PEEP 5 cmH2O; Arterial Blood Gas Tidal Volume 450 ml; Arterial Blood Gas Vent Mode CMV; Arterial Blood Gas Ventilator rate 16 /MIN
[2024-07-01] MEDS: AMIODARONE 150 MG/D5W 100 ML 150 MG/100 ML BAG 600 MG IV CONT (02:05)
[2024-07-01] MEDS: AMIODARONE 360 MG/D5W 200 ML 360 MG/200 ML BAG 33.33 MG IV CONT (02:15)
[2024-07-01 02:20] LABS: Hematocrit 34.3 % (42.0-52.0); Mean Corpuscular HGB Conc 32.1 g/dl (32-36); Mean Corpuscular Volume 99.7 fl (80-100); Mean Platelet Volume 8.4 fl (7.4-10.4); Platelet Count Result 141 k/mm3 (150-375); Red Blood Count 3.44 M/mm3 (4.6-6.20); Red Cell Distribution Width 13.7 % (11.5-14.5); White Blood Count 21.5 K/mm3 (4.5-10.0)
[2024-07-01 02:29] LABS: Anion Gap 10 mmol/L (4-12); Blood Urea Nitrogen 12 mg/dL (9-20); Calcium 7.9 mg/dL (8.4-10.2); Carbon Dioxide 21 mmol/L (22-30); Chloride 101 mmol/L (98-107); Estimated CRCL calculation 71 ml/min; Estimated Glomerular Filt Rate > 60; Glucose 133 mg/dL (65-110); Magnesium 1.4 mg/dL (1.6-2.3); Phosphorus 3.2 mg/dL (2.5-4.5); Potassium 3.5 mmol/L (3.4-5.0); Sodium 132 mmol/L (137-145)
[2024-07-01 02:51] LABS: Procalcitonin 3.5 ng/mL
[2024-07-01] MEDS: PIPERACILLN/TAZ 3.375GM/NS50ML 3.375 GM/50 ML BAG IVPB ×4 (03:38→21:24)
[2024-07-01] MEDS: VASOPRESSIN INJ 100 UNITS in DEXTROSE 5% 95 ML IV CONT (03:38)
[2024-07-01] MEDS: MAGNESIUM SULF 4 GM/WATER100ML 4 GM/100 ML BAG IVPB (04:11)
--- NOTE | 2024-07-01 04:50 | ADMGEN ---
This patient, Edison Burr, was admitted to Intensive Care Unit-2 at 0105 from surgery via bed. Patient/family oriented to hospital policies and general routines including ID bracelet, bed and alarms, visiting hours, pain management, procedures, bathroom and other care routines, personal items, smoking policy, room service/diet, and visiting hours. Information on how to activate the Rapid Response Team has been discussed. Patient/Family are encouraged to report perceived risks to care and to ask questions if they do not understand what they are told or what they should do.
[2024-07-01 05:57] LABS: Glucose Point of Care 116 mg/dl (65-105)
[2024-07-01] MEDS: CENTRAL LINE FLUSH 10 ML IV PUSH ×3 (06:04→21:25)
[2024-07-01 06:12] LABS: Hematocrit 36.1 % (42.0-52.0); Hemoglobin 11.7 g/dL (14.0-18.0); Mean Corpuscular HGB Conc 32.4 g/dl (32-36); Mean Corpuscular Hemoglobin 31.9 pg (26-34); Mean Corpuscular Volume 98.4 fl (80-100); Mean Platelet Volume 8.5 fl (7.4-10.4); Platelet Count Result 184 k/mm3 (150-375); Red Blood Count 3.67 M/mm3 (4.6-6.20); Red Cell Distribution Width 13.8 % (11.5-14.5); White Blood Count 30.9 K/mm3 (4.5-10.0)
[2024-07-01] MEDS: LEVOTHYROXINE SODIUM INJ 100 MCG/5 ML VIAL 12.5 MCG IV PUSH (06:14)
[2024-07-01] MEDS: NOREPINEPHRINE 8 MG/D5W 250 ML 8 MG/250 ML BAG 45 MG IV CONT (06:15)
[2024-07-01 06:21] LABS: Lactic Acid Reflex 2.4 mmol/L (0.7-2.0)
[2024-07-01 06:23] LABS: Alanine Aminotransferase 15 U/L (6-50); Albumin Level 3.2 g/dL (3.5-5.1); Alkaline Phosphatase 55 U/L (38-126); Anion Gap 9 mmol/L (4-12); Aspartate Amino Transferase 25 U/L (17-59); Bilirubin,Total 1.3 mg/dL (0.2-1.3); Blood Urea Nitrogen 13 mg/dL (9-20); Carbon Dioxide 23 mmol/L (22-30); Chloride 100 mmol/L (98-107); Estimated CRCL calculation 72 ml/min; Estimated Glomerular Filt Rate > 60; Glucose 131 mg/dL (65-110); Sodium 132 mmol/L (137-145)
[2024-07-01 06:35] LABS: INR 1.4; Prothrombin Time 17.8 Seconds (11.1-14.7)
--- NOTE | 2024-07-01 06:52 | PM.IMCN ---
Assessment and Plan Assessment and plan (1) Septic shock: Code(s): A41.9 - Sepsis, unspecified organism; R65.21 - Severe sepsis with septic shock Status: Acute (2) Acute ischemia of large intestine: Code(s): K55.039 - Acute (reversible) ischemia of large intestine, extent unspecified Status: Acute (3) Peritonitis (acute) generalized: Code(s): K65.0 - Generalized (acute) peritonitis Status: Acute (4) Respiratory failure: Qualifiers: Chronicity: acute Respiratory failure complication: unspecified whether with hypoxia or hypercapnia Qualified Code(s): J96.00 - Acute respiratory failure, unspecified whether with hypoxia or hypercapnia Code(s): J96.90 - Respiratory failure, unspecified, unspecified whether with hypoxia or hypercapnia Status: Acute (5) Chronic atrial fibrillation with RVR: Code(s): I48.20 - Chronic atrial fibrillation, unspecified Status: Acute (6) Chronic anticoagulation: Code(s): Z79.01 - continuous churn buttermaker (current) use of anticoagulants Status: Acute Plan Patient developed septic shock due to ischemic bowel involving the large intestine status post exploratory laparotomy with end-to-end anastomosis. Patient received 30 mL/kilos fluid resuscitation has been started on empiric antibiotic therapy with Zosyn. Blood cultures have been obtained and are pending. Will monitor infectious markers closely including CBC. Patient is also on chronic Eliquis and Plavix leaving him at increased risk of bleeding given emergent surgery. Will monitor hemoglobin closely. Patient has right IJ in place. The patient remained hypotensive on arrival to the ICU cheetah score was performed and was less than 0 indicating patient was not fluid responsive. Patient remains on Levophed and vasopressin has been added. Blood pressures are being monitored both cuff pressures an art line. Will maintain maps of 65-70. Will titrate for goal per protocol. Will continue maintenance fluids. The patient remains intubated due to acute respiratory failure from sepsis and recent surgery. Will monitor daily chest x-rays and ABGs. Will place on Protonix IV q.12 hours for prophylaxis. The patient has a history of chronic AFib does med exacerbated due to his sepsis. Heart rate has improved with improved blood pressures had improving acidosis and treatment of underlying sepsis. He remains on amiodarone. 40 minute spent in critical care activities. Due to a high probability of clinically significant, life threatening deterioration, the patient required my highest level of preparedness to intervene emergently and I personally spent this critical care time directly and personally managing the patient. This critical care time included obtaining a history; examining the patient; pulse oximetry; ordering and review of studies; arranging urgent treatment with development of a management plan; evaluation of patient's response to treatment; frequent reassessment; and discussions with other providers. It was exclusive of separately billable procedures and treating other patients and teaching time. Please see Assessment and Plan section and the rest of the note for further information on patient assessment and treatment. HPI Date of Consult Consult date: 07/01/24 Requesting Physician: Ketan Milligan DO Primary Care Provider: Antelmo Aguilar, Consult Narrative Narrative: Edison Burr is a 89 year old male with a past medical history of atrial fibrillation on Eliquis, glaucoma, CHF, hypertension and coronary artery disease who presented to the ER from [place] for abdominal pain. Patient is intubated sedated following exploratory laparotomy and hemicolectomy sof the entirety of HPI was obtained from review of past medical records and physician report. The patient presented to the ER from [facility] with vomiting that started in the early head start director. He ate breakfast including Ob ill but was unable to keep his breakfast down in did not want lunch due to nausea and abdominal pain. The patient had been evaluated at [facility] a couple of weeks ago for similar symptoms symptoms he was evaluated for possible GI bleed but was reportedly discharged without a specific diagnosis. He had been having normal bowel loose bowels. On presentation to the ER patient had a diffusely tender distended tight abdomen. He had minimal bowel sounds. He had stat labs performed which demonstrated marked leukocytosis, stable anemia, elevated D-dimer, mild stable hyponatremia, mildly low serum bicarb, and magnesium low at 1.5. And lactic acid 2.6. Patient He was sent for immediate CT of the abdomen pelvis with contrast and demonstrated air within the wall of the cecum and ascending colon with thickening of the ascending colon with dilated small bowel loops in the distal ileum with transition zone in the terminal ileum and other unrelated findings. Patient was also noted to be in AFib RVR with initial blood pressures stable. The patient did receive 30 mL/kilos bolus of isotonic fluids to treat for sepsis. The patient also received IV pushes of Cardizem and metoprolol. He then became acutely hypotensive with systolic blood pressures down into the 50s. He subsequently had a right IJ placed and was started on pressor therapy. The patient's abdominal exam was consistent with an acute abdomen and imaging was concerning for ischemic bowel is surgeon was emergently consulted in the patient was taken directly to the OR. Patient had exploratory laparotomy which demonstrated cecum and ascending colon appeared ischemic with signs of necrosis the cecum but no perforation. Patient had a right hemicolectomy with [id number] ileo colic anastomosis. Reported 100 mL of estimated blood loss. The patient remained intubated postoperatively and had are lying placed in the OR. On arrival to the ICU patient was requiring Levophed at 30. Patient's initial vent settings were reportedly 500 tidal volume peep of 5 rate of 10 and 100% FiO2. The singing teacher provided adjustments in vent settings. Review of Systems Review of Systems: ROS unobtainable: Yes unobtainable due to endotracheal tube PMFSH Past Medical History Medical History (Updated 07/01/24 @ 08:43 by Mariella Serrano DO) Chronic anticoagulation Atrial fibrillation Chronic hyponatremia COVID-19 vaccine series completed (~03/2020) Coronary artery disease Glaucoma Hyperlipidemia Essential hypertension Surgical History Surgical History History of detached retina repair left eye History of tonsillectomy and adenoidectomy History of cardiac catheterization (~04/2019) with old prior occlusions noted, not a candidate for stent at that time per patient report Family History Family History Father Cerebral aneurysm Mother Heart disease Social History Social History (Updated 07/01/24 @ 07:49 by Mariella Serrano DO) Social History: He has been since 1957. He and his live in [place]. He is now residing at [place] for indeterminate amount of time. He is retired from [employer]. They have 5 biological children and adopted 2 of their grand children. He usually drinks 3-4 mixed drinks a night. Code Status: DNR/DNI Smoking packs per day: 1 Smoking cigarettes per day: 20.0 Years smoked: 5 Smoking pack-years: 5.00 Smoking status: Former smoker Tobacco type: cigarettes Second hand tobacco smoke exposure: No Alcohol intake: current Drinks per week: 21 Substance use: never Lack of Transportation: No Lack of Food: Never True Current Housing: I Have Housing Concerned About Future Housing: No Difficulty Paying Gas/Electric Bills: No Difficulty Paying for Meds: No Currently Unemployed: No Education: Decline to Answer Difficulty w/ Childcare or Family Care: No Gender identity (if verbalized by the patient): Male Sexual Orientation (if Verbalized by the Patient): Straight or Heterosexual Spiritual care concerns: No Meds Home Medications and Allergies Home Medications ?Medication ?Instructions ?Recorded ?Confirmed ?Type furosemide 20 mg tablet 20 mg PO DAILY 09/22/21 07/01/24 History atorvastatin 20 mg tablet 20 mg PO DAILY 09/23/21 07/01/24 History diphenhydramine 25 2 tablet PO HS PRN sleep 09/23/21 07/01/24 History mg-acetaminophen 500 mg tablet (Tylenol PM Extra Strength) fluticasone propionate 50 1 spray intranasal HS 09/23/21 07/01/24 History mcg/actuation nasal spray,suspension latanoprost 0.005 % eye drops 1 drp LEFT EYE QPM 09/23/21 07/01/24 History sacubitril 24 mg-valsartan 26 mg 0.5 tablet PO BID 09/23/21 07/01/24 History tablet (Entresto) acetaminophen 325 mg capsule 650 mg PO BID PRN pain (scale 07/01/24 07/01/24 History score 1-3) apixaban 2.5 mg tablet (Eliquis) 2.5 mg PO BID 07/01/24 07/01/24 History clopidogrel 75 mg tablet 75 mg PO DAILY 07/01/24 07/01/24 History ergocalciferol (vitamin D2) 1,250 1,250 mcg PO WEEKLY 07/01/24 07/01/24 History mcg (50,000 unit) capsule folic acid 1 mg tablet 1 mg PO DAILY 07/01/24 07/01/24 History guaifenesin 100 mg/5 mL oral liquid 200 mg PO Q4H PRN cough 07/01/24 07/01/24 History levothyroxine 25 mcg capsule 25 mcg PO DAILY 07/01/24 07/01/24 History metoprolol succinate 25 mg 12.5 mg PO DAILY 07/01/24 07/01/24 History tablet,extended release 24 hr mirtazapine 15 mg tablet 15 mg PO DAILY 07/01/24 07/01/24 History ondansetron 4 mg disintegrating 4 mg PO Q6H PRN nausea and vomiting 07/01/24 07/01/24 History tablet pantoprazole 40 mg tablet,delayed 40 mg PO BID 07/01/24 07/01/24 History release polyethylene glycol 3350 17 17 g PO DAILY PRN constipation 07/01/24 07/01/24 History gram/dose oral powder (Miralax) potassium chloride 20 mEq 20 meq PO DAILY 07/01/24 07/01/24 History tablet,extended release(part/cryst) (Klor-Con M) sodium chloride 0.65 % nasal spray 1 spray intranasal Q4H PRN nasal 07/01/24 07/01/24 History aerosol (Saline Nasal) congestion spironolactone 25 mg tablet 12.5 mg PO DAILY 07/01/24 07/01/24 History (Aldactone) tramadol 50 mg tablet 50 mg PO Q6H PRN pain (scale score 07/01/24 07/01/24 History 7-10) triamcinolone acetonide 0.1 % 1 applic topical BID PRN rash 07/01/24 07/01/24 History topical ointment Allergies Allergy/AdvReac Type Severity Reaction Status Date / Time No Known Allergies Allergy Verified 07/01/24 05:18 Vital Signs Vital Signs - 24 hr 06/30/24 18:09 06/30/24 18:34 06/30/24 18:39 Temperature Pulse Rate 146 H 171 H 158 H Respiratory Rate 17 33 H 29 H Blood Pressure 125/73 Pulse Oximetry 98 94 Oxygen Delivery Oxygen Flow Rate Fraction of Inspired Oxygen 06/30/24 18:57 06/30/24 19:00 06/30/24 19:08 Temperature Pulse Rate 159 H 155 H Respiratory Rate 11 L 15 Blood Pressure Pulse Oximetry 91 Oxygen Delivery Nasal Cannula Oxygen Flow Rate 2 Fraction of Inspired Oxygen 06/30/24 19:11 06/30/24 19:15 06/30/24 19:41 Temperature Pulse Rate 163 H 163 H 142 H Respiratory Rate 21 H 22 H 22 H Blood Pressure Pulse Oximetry 92 Oxygen Delivery Oxygen Flow Rate Fraction of Inspired Oxygen 06/30/24 20:10 06/30/24 21:03 06/30/24 21:04 Temperature Pulse Rate 131 H 136 H 139 H Respiratory Rate 19 22 H 20 Blood Pressure 104/65 Pulse Oximetry Oxygen Delivery Oxygen Flow Rate Fraction of Inspired Oxygen 06/30/24 21:05 06/30/24 21:06 06/30/24 21:11 Temperature Pulse Rate 142 H 129 H 135 H Respiratory Rate 20 24 H 17 Blood Pressure Pulse Oximetry Oxygen Delivery Oxygen Flow Rate Fraction of Inspired Oxygen 06/30/24 21:13 06/30/24 21:23 06/30/24 21:30 Temperature 98.3 F Pulse Rate 132 H 131 H 144 H Respiratory Rate 18 16 Blood Pressure 107/56 L Pulse Oximetry 95 93 Oxygen Delivery Oxygen Flow Rate Fraction of Inspired Oxygen 06/30/24 21:34 06/30/24 21:35 06/30/24 21:36 Temperature Pulse Rate 144 H 144 H 135 H Respiratory Rate 21 H 18 24 H Blood Pressure 74/54 L Pulse Oximetry 94 94 Oxygen Delivery Oxygen Flow Rate Fraction of Inspired Oxygen 06/30/24 21:37 06/30/24 21:38 06/30/24 21:39 Temperature Pulse Rate 145 H 143 H 145 H Respiratory Rate 19 21 H 20 Blood Pressure 68/54 L Pulse Oximetry Oxygen Delivery Oxygen Flow Rate Fraction of Inspired Oxygen 06/30/24 21:40 06/30/24 21:41 06/30/24 21:42 Temperature Pulse Rate 125 H 126 H 120 H Respiratory Rate 25 H 17 15 Blood Pressure 66/45 L Pulse Oximetry 95 95 94 Oxygen Delivery Oxygen Flow Rate Fraction of Inspired Oxygen 06/30/24 21:43 06/30/24 21:44 06/30/24 21:45 Temperature Pulse Rate 115 H 110 H 123 H Respiratory Rate 19 20 20 Blood Pressure 56/47 L Pulse Oximetry 95 95 95 Oxygen Delivery Oxygen Flow Rate Fraction of Inspired Oxygen 06/30/24 21:46 06/30/24 21:47 06/30/24 21:48 Temperature Pulse Rate 124 H 126 H 125 H Respiratory Rate 18 18 19 Blood Pressure 62/48 L Pulse Oximetry 95 95 95 Oxygen Delivery Oxygen Flow Rate Fraction of Inspired Oxygen 06/30/24 21:49 06/30/24 21:50 06/30/24 21:52 Temperature Pulse Rate 137 H 128 H 138 H Respiratory Rate 19 21 H 20 Blood Pressure Pulse Oximetry 95 94 94 Oxygen Delivery Oxygen Flow Rate Fraction of Inspired Oxygen 06/30/24 21:53 06/30/24 21:54 06/30/24 21:54 Temperature Pulse Rate 131 H 130 H 129 H Respiratory Rate 19 17 Blood Pressure 63/45 L Pulse Oximetry 95 95 Oxygen Delivery Oxygen Flow Rate Fraction of Inspired Oxygen 06/30/24 21:56 06/30/24 21:57 06/30/24 22:00 Temperature Pulse Rate 127 H 130 H 130 H Respiratory Rate 19 19 20 Blood Pressure 68/47 L Pulse Oximetry 96 95 Oxygen Delivery Oxygen Flow Rate Fraction of Inspired Oxygen 06/30/24 22:01 06/30/24 22:03 06/30/24 22:04 Temperature Pulse Rate 121 H 116 H 119 H Respiratory Rate 20 19 22 H Blood Pressure 66/47 L Pulse Oximetry 95 95 96 Oxygen Delivery Oxygen Flow Rate Fraction of Inspired Oxygen 06/30/24 22:05 06/30/24 22:06 06/30/24 22:07 Temperature Pulse Rate 120 H 116 H 118 H Respiratory Rate 25 H 21 H 20 Blood Pressure 69/52 L Pulse Oximetry 94 97 95 Oxygen Delivery Oxygen Flow Rate Fraction of Inspired Oxygen 06/30/24 22:08 06/30/24 22:09 06/30/24 22:10 Temperature Pulse Rate 115 H 110 H 113 H Respiratory Rate 19 22 H 19 Blood Pressure Pulse Oximetry 95 96 96 Oxygen Delivery Oxygen Flow Rate Fraction of Inspired Oxygen 06/30/24 22:11 06/30/24 22:12 06/30/24 22:13 Temperature Pulse Rate 114 H 109 H 117 H Respiratory Rate 21 H 22 H 18 Blood Pressure 60/48 L Pulse Oximetry 93 90 90 Oxygen Delivery Oxygen Flow Rate Fraction of Inspired Oxygen 06/30/24 22:14 06/30/24 22:15 06/30/24 22:16 Temperature Pulse Rate 110 H 105 H 119 H Respiratory Rate 29 H 24 H 24 H Blood Pressure 78/52 L Pulse Oximetry 95 95 95 Oxygen Delivery Oxygen Flow Rate Fraction of Inspired Oxygen 06/30/24 22:17 06/30/24 22:21 06/30/24 22:22 Temperature Pulse Rate 121 H 119 H 104 H Respiratory Rate 23 H 20 16 Blood Pressure 66/37 L Pulse Oximetry 96 95 Oxygen Delivery Oxygen Flow Rate Fraction of Inspired Oxygen 06/30/24 22:28 06/30/24 22:34 06/30/24 22:38 Temperature Pulse Rate 114 H 121 H 115 H Respiratory Rate 22 H 21 H Blood Pressure 98/80 L 49/36 L Pulse Oximetry Oxygen Delivery Oxygen Flow Rate Fraction of Inspired Oxygen 06/30/24 22:40 06/30/24 22:40 07/01/24 01:05 Temperature Pulse Rate 114 H 116 H 152 H Respiratory Rate 17 Blood Pressure 49/36 L 159/84 H Pulse Oximetry 97 Oxygen Delivery Oxygen Flow Rate Fraction of Inspired Oxygen 07/01/24 01:11 07/01/24 01:15 07/01/24 01:23 Temperature Pulse Rate 139 H 149 H 141 H Respiratory Rate Blood Pressure 147/82 H 154/67 H Pulse Oximetry 98 Oxygen Delivery Mechanical Ventilation Oxygen Flow Rate Fraction of Inspired Oxygen 40 07/01/24 01:45 07/01/24 01:45 07/01/24 02:00 Temperature Pulse Rate 137 H 137 H 132 H Respiratory Rate 16 16 16 Blood Pressure Pulse Oximetry Oxygen Delivery Oxygen Flow Rate Fraction of Inspired Oxygen 07/01/24 02:00 07/01/24 02:00 07/01/24 02:05 Temperature Pulse Rate 132 H 132 H 133 H Respiratory Rate 16 Blood Pressure 107/44 L 112/49 L Pulse Oximetry Oxygen Delivery Oxygen Flow Rate Fraction of Inspired Oxygen 07/01/24 02:10 07/01/24 02:15 07/01/24 02:16 Temperature Pulse Rate 116 H 118 H 115 H Respiratory Rate Blood Pressure 61/44 L 91/41 L 104/45 L Pulse Oximetry Oxygen Delivery Oxygen Flow Rate Fraction of Inspired Oxygen 07/01/24 02:35 07/01/24 02:52 07/01/24 02:57 Temperature Pulse Rate 113 H 124 H 118 H Respiratory Rate Blood Pressure 103/47 L 102/47 L 94/48 L Pulse Oximetry Oxygen Delivery Oxygen Flow Rate Fraction of Inspired Oxygen 07/01/24 02:58 07/01/24 02:58 07/01/24 03:08 Temperature Pulse Rate 132 H 132 H 126 H Respiratory Rate 16 16 16 Blood Pressure Pulse Oximetry Oxygen Delivery Oxygen Flow Rate Fraction of Inspired Oxygen 07/01/24 03:08 07/01/24 03:17 07/01/24 03:38 Temperature Pulse Rate 126 H 118 H 119 H Respiratory Rate 16 Blood Pressure 83/42 L 116/55 L Pulse Oximetry Oxygen Delivery Oxygen Flow Rate Fraction of Inspired Oxygen 07/01/24 03:47 07/01/24 04:00 07/01/24 04:00 Temperature Pulse Rate 115 H 117 H 117 H Respiratory Rate 16 Blood Pressure 91/45 L 106/51 L Pulse Oximetry Oxygen Delivery Oxygen Flow Rate Fraction of Inspired Oxygen 07/01/24 04:00 07/01/24 04:00 07/01/24 04:00 Temperature Pulse Rate 117 H 117 H 117 H Respiratory Rate 16 16 Blood Pressure 106/51 L Pulse Oximetry 98 Oxygen Delivery Mechanical Ventilation Oxygen Flow Rate Fraction of Inspired Oxygen 35 07/01/24 04:00 07/01/24 04:00 07/01/24 05:05 Temperature 98.4 F Pulse Rate 113 H 113 H 111 H Respiratory Rate 16 Blood Pressure 107/51 L Pulse Oximetry 100 99 Oxygen Delivery Mechanical Ventilation Oxygen Flow Rate Fraction of Inspired Oxygen 35 07/01/24 05:32 07/01/24 06:00 07/01/24 06:00 Temperature Pulse Rate 109 H 109 H Respiratory Rate 16 Blood Pressure 104/50 L Pulse Oximetry Oxygen Delivery Oxygen Flow Rate Fraction of Inspired Oxygen 30 07/01/24 06:00 07/01/24 06:00 07/01/24 06:00 Temperature Pulse Rate 109 H 109 H 107 H Respiratory Rate 16 Blood Pressure 104/50 L Pulse Oximetry Oxygen Delivery Oxygen Flow Rate Fraction of Inspired Oxygen 07/01/24 06:00 07/01/24 06:15 07/01/24 06:15 Temperature Pulse Rate 107 H 105 H 105 H Respiratory Rate 16 Blood Pressure 97/64 L 110/51 L 110/51 L Pulse Oximetry 100 Oxygen Delivery Oxygen Flow Rate Fraction of Inspired Oxygen Exam Narrative: Weight 109.8 kg BMI 33.8 Const: Other: Acutely ill-appearing, intubated and sedated HENMT: Other: Mucous membranes are dry, ET tube measuring 26 cm at the lip, head is normocephalic atraumatic Eyes: Other: Right pupil is pinpoint left pupil is sluggishly reactive but does not constrict as far as the right but he has had prior retinal detachment in this eye in the past Neck: Other: Right IJ in place, No JVD, no lymphadenopathy, trachea midline Resp: Other: Coarse breath sounds bilaterally, no increased work of breathing Cardio: Other: Irregularly irregular, tachycardic rate in the low 100s to 110s, no murmur, no JVD GI: Other: Distended but soft laparoscopic incision with overlying dressing clean dry and intact, hypoactive bowel sounds : Other: Sneed catheter in place with small amount of dark yellow urine Skin: Other: 5-6 second cap refill, extremities are cool to touch, wound to the left heel that appears chronic, mottling to the extremities Neuro: Other: Nursing staff reports that the patient was pointing to the tube and trying to mimic pulling the tube out, patient was redirectable, pupillary abnormalities as mentioned above likely chronic Extrem: Other: No cyanosis, no clubbing, right radial art line in place Psych: Other: Unable to assess due to sedation Results Labs 07/01/24 06:08 07/01/24 06:07 Labs: Short CBC 06/30/24 06/30/24 07/01/24 Range/Units 18:41 22:18 02:15 WBC 20.2 H 21.5 H (4.5-10.0) K/mm3 Hgb 13.9 L 11.8 L 11.0 L (14.0-18.0) g/dL Hct 43.9 37.0 L 34.3 L (42.0-52.0) % Plt Count 194 D 141 L (150-375) k/mm3 07/01/24 Range/Units 06:08 WBC 30.9 H (4.5-10.0) K/mm3 Hgb 11.7 L (14.0-18.0) g/dL Hct 36.1 L (42.0-52.0) % Plt Count 184 (150-375) k/mm3 BMP 06/30/24 07/01/24 07/01/24 18:41 02:15 06:07 Sodium 133 L 132 L 132 L Potassium 4.2 3.5 4.0 Chloride 96 L 101 100 Carbon Dioxide 27 21 L 23 BUN 13 12 13 Creatinine 0.84 0.79 0.79 Glucose 100 133 H 131 H Calcium 9.1 7.9 L 8.0 L Cardiac Enzymes 06/30/24 Range/Units 18:40 Troponin I < 0.012 (0.000-0.034) ng/mL Liver Function 06/30/24 07/01/24 Range/Units 18:41 06:07 Total Bilirubin 1.3 1.3 (0.2-1.3) mg/dL AST 29 25 (17-59) U/L ALT 19 15 (6-50) U/L Alkaline Phosphatase 73 55 (38-126) U/L Albumin 4.2 3.2 L (3.5-5.1) g/dL Urine 06/30/24 Range/Units 21:07 Urine Color Yellow (Yellow) Urine Appearance Cloudy H (Clear) Urine pH 7.5 (5.0-9.0) Ur Specific [place] 1.036 H (1.001-1.035) Urine Protein Trace (Negative) mg/dL Urine Glucose (UA) Negative (Negative) mg/dL Laboratory Tests 06/30/24 06/30/24 06/30/24 18:40 18:41 21:06 WBC 20.2 H RBC 4.45 L Hgb 13.9 L Hct 43.9 MCV 98.7 MCH 31.2 MCHC 31.7 L RDW 13.6 Plt Count 194 D MPV 8.4 Immature Gran % (Auto) 0.5 Neut % (Auto) 94.0 H Lymph % (Auto) 3.0 L [place] % (Auto) 2.1 L Eos % (Auto) 0.2 Baso % (Auto) 0.2 Lymph # (Auto) 0.61 L [place] # (Auto) 0.4 Eos # (Auto) 0.0 Baso # (Auto) 0.1 Abs Immat Gran (auto) 0.10 H Absolute Neuts (auto) 19.0 H Absolute Nucleated RBC 0.000 Band Neutrophils % Not Reportable Nucleated RBC % 0.0 Platelet Estimate Adequate Schistocytes None seen PT INR APTT D-Dimer Puncture Site ABG pH ABG pCO2 ABG pO2 ABG PO2/FiO2 Ratio ABG HCO3 ABG O2 Saturation ABG O2 Content ABG Base Excess A-a Gradient Oxyhemoglobin Carboxyhemoglobin Methemoglobin Reduced Hemoglobin Total Hemoglobin O2 Delivery Device O2 Liters/Min Minute Volume Vent Rate Vent Mode FiO2 Tidal Volume PEEP Peak Inspir Pressure Pressure Support Sodium 133 L Potassium 4.2 Chloride 96 L Carbon Dioxide 27 Anion Gap 10 BUN 13 Creatinine 0.84 Estim Creat Clear Calc 67 Estimated GFR > 60 Glucose 100 POC Capillary Glucose Lactic Acid 2.6 H 1.5 Calcium 9.1 Phosphorus Magnesium 1.5 L Total Bilirubin 1.3 AST 29 ALT 19 Alkaline Phosphatase 73 Troponin I < 0.012 NT-Pro-B Natriuret Pep 3290 H Total Protein 7.0 Albumin 4.2 Lipase 95 Procalcitonin Urine Color Urine Appearance Urine pH Ur Specific [place] Urine Protein Urine Glucose (UA) Urine Ketones Ur Blood (Man) Urine Nitrate Urine Bilirubin Urine Urobilinogen Add Ur Microanalysis Leukocyte Esterase Rfl Urine RBC Urine WBC Ur Squamous Epith Cells Urine Bacteria Urine Casts Nasal MRSA (PCR) Blood Type O Positive Antibody Screen Negative 06/30/24 06/30/24 07/01/24 21:07 22:18 00:00 WBC RBC Hgb 11.8 L Hct 37.0 L MCV MCH MCHC RDW Plt Count MPV Immature Gran % (Auto) Neut % (Auto) Lymph % (Auto) [place] % (Auto) Eos % (Auto) Baso % (Auto) Lymph # (Auto) [place] # (Auto) Eos # (Auto) Baso # (Auto) Abs Immat Gran (auto) Absolute Neuts (auto) Absolute Nucleated RBC Band Neutrophils % Nucleated RBC % Platelet Estimate Schistocytes PT 17.7 H INR 1.4 APTT 30.6 D-Dimer 1.21 H Puncture Site Artline ABG pH 7.273 L* ABG pCO2 39.9 ABG pO2 395.1 H ABG PO2/FiO2 Ratio 3.95 ABG HCO3 18.0 L ABG O2 Saturation 99.8 ABG O2 Content 18.1 ABG Base Excess -8.3 A-a Gradient 278.0 Oxyhemoglobin 98.7 Carboxyhemoglobin 0.9 Methemoglobin 0.3 Reduced Hemoglobin 0.1 Total Hemoglobin 12.3 O2 Delivery Device Ventilator O2 Liters/Min Not Reportable Minute Volume Not Reportable Vent Rate 10 Vent Mode Cmv FiO2 100 Tidal Volume 500 PEEP 0 Peak Inspir Pressure Not Reportable Pressure Support Sodium Potassium Chloride Carbon Dioxide Anion Gap BUN Creatinine Estim Creat Clear Calc Estimated GFR Glucose POC Capillary Glucose Lactic Acid Calcium Phosphorus Magnesium Total Bilirubin AST ALT Alkaline Phosphatase Troponin I NT-Pro-B Natriuret Pep Total Protein Albumin Lipase Procalcitonin Urine Color Yellow Urine Appearance Cloudy H Urine pH 7.5 Ur Specific [place] 1.036 H Urine Protein Trace Urine Glucose (UA) Negative Urine Ketones 1+ H Ur Blood (Man) Negative Urine Nitrate Negative Urine Bilirubin Negative Urine Urobilinogen 1.0 Add Ur Microanalysis Reviewed Leukocyte Esterase Rfl Negative Urine RBC 0-2 Urine WBC 6-10 H Ur Squamous Epith Cells Moderate Urine Bacteria 1+ H Urine Casts 3-5 Nasal MRSA (PCR) Blood Type Antibody Screen 07/01/24 07/01/24 07/01/24 01:54 02:15 05:55 WBC 21.5 H RBC 3.44 L Hgb 11.0 L Hct 34.3 L MCV 99.7 MCH 32.0 MCHC 32.1 RDW 13.7 Plt Count 141 L MPV 8.4 Immature Gran % (Auto) Neut % (Auto) Lymph % (Auto) [place] % (Auto) Eos % (Auto) Baso % (Auto) Lymph # (Auto) [place] # (Auto) Eos # (Auto) Baso # (Auto) Abs Immat Gran (auto) Absolute Neuts (auto) Absolute Nucleated RBC Band Neutrophils % Nucleated RBC % Platelet Estimate Schistocytes PT INR APTT D-Dimer Puncture Site Artline ABG pH 7.320 L ABG pCO2 40.6 ABG pO2 78.4 L ABG PO2/FiO2 Ratio 1.96 ABG HCO3 20.4 L ABG O2 Saturation 94.7 L ABG O2 Content 16.1 ABG Base Excess -5.3 A-a Gradient 160.1 Oxyhemoglobin 94.3 Carboxyhemoglobin Methemoglobin Reduced Hemoglobin Total Hemoglobin 12.1 O2 Delivery Device Ventilator O2 Liters/Min Not Reportable Minute Volume Not Reportable Vent Rate 16 Vent Mode Cmv FiO2 40 Tidal Volume 450 PEEP 5 Peak Inspir Pressure Not Reportable Pressure Support Not Reportable Sodium 132 L Potassium 3.5 Chloride 101 Carbon Dioxide 21 L Anion Gap 10 BUN 12 Creatinine 0.79 Estim Creat Clear Calc 71 Estimated GFR > 60 Glucose 133 H POC Capillary Glucose 116 H Lactic Acid Calcium 7.9 L Phosphorus 3.2 Magnesium 1.4 L Total Bilirubin AST ALT Alkaline Phosphatase Troponin I NT-Pro-B Natriuret Pep Total Protein Albumin Lipase Procalcitonin 3.5 Urine Color Urine Appearance Urine pH Ur Specific [place] Urine Protein Urine Glucose (UA) Urine Ketones Ur Blood (Man) Urine Nitrate Urine Bilirubin Urine Urobilinogen Add Ur Microanalysis Leukocyte Esterase Rfl Urine RBC Urine WBC Ur Squamous Epith Cells Urine Bacteria Urine Casts Nasal MRSA (PCR) Blood Type Antibody Screen 07/01/24 07/01/24 07/01/24 06:06 06:07 06:08 WBC 30.9 H RBC 3.67 L Hgb 11.7 L Hct 36.1 L MCV 98.4 MCH 31.9 MCHC 32.4 RDW 13.8 Plt Count 184 MPV 8.5 Immature Gran % (Auto) Neut % (Auto) Lymph % (Auto) [place] % (Auto) Eos % (Auto) Baso % (Auto) Lymph # (Auto) [place] # (Auto) Eos # (Auto) Baso # (Auto) Abs Immat Gran (auto) Absolute Neuts (auto) Absolute Nucleated RBC Band Neutrophils % Nucleated RBC % Platelet Estimate Schistocytes PT 17.8 H INR 1.4 APTT D-Dimer Puncture Site ABG pH ABG pCO2 ABG pO2 ABG PO2/FiO2 Ratio ABG HCO3 ABG O2 Saturation ABG O2 Content ABG Base Excess A-a Gradient Oxyhemoglobin Carboxyhemoglobin Methemoglobin Reduced Hemoglobin Total Hemoglobin O2 Delivery Device O2 Liters/Min Minute Volume Vent Rate Vent Mode FiO2 Tidal Volume PEEP Peak Inspir Pressure Pressure Support Sodium 132 L Potassium 4.0 Chloride 100 Carbon Dioxide 23 Anion Gap 9 BUN 13 Creatinine 0.79 Estim Creat Clear Calc 72 Estimated GFR > 60 Glucose 131 H POC Capillary Glucose Lactic Acid 2.4 H Calcium 8.0 L Phosphorus Magnesium 2.3 Total Bilirubin 1.3 AST 25 ALT 15 Alkaline Phosphatase 55 Troponin I NT-Pro-B Natriuret Pep Total Protein 5.0 L Albumin 3.2 L Lipase Procalcitonin Urine Color Urine Appearance Urine pH Ur Specific [place] Urine Protein Urine Glucose (UA) Urine Ketones Ur Blood (Man) Urine Nitrate Urine Bilirubin Urine Urobilinogen Add Ur Microanalysis Leukocyte Esterase Rfl Urine RBC Urine WBC Ur Squamous Epith Cells Urine Bacteria Urine Casts Nasal MRSA (PCR) Not detected Blood Type Antibody Screen Impressions Abdomen/Pelvis CT 06/30/24 20:18 IMPRESSION: 1. Air seen in the wall of the cecum and ascending colon with thickening in the ascending colon. Differential include infection with gas-forming organism versus ischemia versus connective tissue disease. Clinical correlation and further evaluation advised. No free air. Minimal free fluid seen around the liver. 2. Dilated small bowel loops in the distal ileum with transition zone seen in the terminal ileum area. Follow-up advised. 3. Bilateral basal atelectasis with left pleural effusion. 4. Cardiomegaly. 5. Slightly thickened wall of the bladder. Evaluation for cystitis advised Dr. Puckett was notified with the result of the patient at 8:40 PM on June 30, 2024. Chest X-Ray 07/01/24 06:22 IMPRESSION: Mild pulmonary vascular congestion, without focal infiltrate or effusion. Chest X-Ray 07/01/24 06:23 IMPRESSION: Left hilar infiltrate is suspected, with a small left-sided pleural effusion. Mild pulmonary vascular congestion persists. Supportive lines and tubes in good position. Chest X-Ray 07/01/24 06:36 IMPRESSION: Mild pulmonary vascular congestion with bibasilar atelectasis. Withdrawal of the endotracheal tube approximately 3 cm is suggested for optimal radiographic placement. Remaining support catheters in good position. EKG:Test Date: 2024-06-30 18:38:06 Measurements Intervals [place] Rate: 156 P: 0 SC: 0 QRS: 101 QRSD: 126 T: -9 QT: 286 QTc: 462 Interpretive Statements ATRIAL FIBRILLATION WITH RAPID VENTRICULAR RESPONSE RIGHT AXIS DEVIATION [QRS AXIS > 100] RIGHT BUNDLE BRANCH BLOCK [120+ ms QRS DURATION, UPRIGHT V1, 40+ ms S IN I/aVL/V4/V5/V6] CRITICAL TEST RESULT No previous ECG available for comparison All imaging and EKGs personally reviewed and interpreted. And unless stated otherwise agree with radiologic and cardiology interpretation. Quality VTE Prophylaxis VTE prophylaxis: pharmacologic ordered Hospitalist MIPS Advance Care Plan I have confirmed that the patient's Advanced Care Plan is present, code status is documented, or surrogate decision maker is listed in patient medical record.: Yes Medication Reconciliation I have utilized all available resources to obtain, update and review the patients current medications (includes all prescriptions, OTC, herbals, cannabis, and nutritional supplements).: Yes
[2024-07-01 06:58] LABS: Magnesium 2.3 mg/dL (1.6-2.3)
[2024-07-01] MEDS: AMIODARONE 360 MG/D5W 200 ML 360 MG/200 ML BAG 16.67 MG IV CONT ×2 (07:04→18:00)
[2024-07-01 07:51] LABS: MRSA (PCR) NOT DETECTED (NOT DETECTE)
[2024-07-01] MEDS: PANTOPRAZOLE SODIUM IV 40 MG VIAL IV PUSH ×2 (08:40→21:24)
[2024-07-01] MEDS: LACTATED RINGERS 1,000 ML 100 ML IV CONT ×2 (08:40→18:49)
[2024-07-01] MEDS: ENOXAPARIN 40 MG/0.4 ML SYRINGE SUB-Q (08:40)
[2024-07-01] MEDS: ALBUMIN HUMAN 5% 25 GM/500 ML BTL IV CONT (08:40)
[2024-07-01] MEDS: MINERAL OIL/WHITE PETROLATUM OINTMENT 1 APPLIC EACH EYE ×2 (08:41→21:24)
--- NOTE | 2024-07-01 09:02 | P.CONIN_ITS ---
Assessment and Plan Assessment and plan (1) Septic shock: Code(s): A41.9 - Sepsis, unspecified organism; R65.21 - Severe sepsis with septic shock Status: Acute Assessment and Plan: Septic shock secondary to bowel perforation and peritonitis Patient has received more than 4 L of crystalloids. I will decrease IV fluid rate to 100 mL/hour Will give 5% % albumin bolus and 25% albumin to minimize third-spacing Continue Levophed and vasopressin infusion Add stress dose hydrocortisone Blood and urine cultures have been sent and are pending Continue empiric Zosyn Check echocardiogram (2) Chronic atrial fibrillation with RVR: Code(s): I48.20 - Chronic atrial fibrillation, unspecified Status: Acute Assessment and Plan: Currently in RVR. Continue amiodarone infusion. Anticoagulation is on hold (3) Respiratory failure: Qualifiers: Chronicity: acute Respiratory failure complication: unspecified whether with hypoxia or hypercapnia Qualified Code(s): J96.00 - Acute respiratory failure, unspecified whether with hypoxia or hypercapnia Code(s): J96.90 - Respiratory failure, unspecified, unspecified whether with hypoxia or hypercapnia Status: Acute Assessment and Plan: Acute Respiratory failure secondary to septic shock, peritonitis, bowel ischemia perforation, general anaesthesia Patient now intubated and on mechanical ventilation Chest x-ray reviewed and ET tube has already been adjusted. Continue full mechanical ventilation support to prevent hypoxemia/hypercarbia and end organ damage. ABG and vent settings reviewed Continue mechanical ventilation until hemodynamics improved and then and will evaluate for weaning Low tidal volume ventilation strategy to prevent volutrauma (4) Chronic anticoagulation: Code(s): Z79.01 - penitentiary (current) use of anticoagulants Status: Acute Assessment and Plan: Patient was on Eliquis and received FFP for the surgery. Continue to hold anticoagulation at this time due to high risk of bleeding (5) Acute ischemia of large intestine: Code(s): K55.039 - Acute (reversible) ischemia of large intestine, extent unspecified Status: Acute Assessment and Plan: Status post exploratory laparotomy and right hemicolectomy NPO Management per General surgery (6) Peritonitis (acute) generalized: Code(s): K65.0 - Generalized (acute) peritonitis Status: Acute Assessment and Plan: See above Plan DVT prophylaxis -Lovenox Stress ulcer prophylaxis -PPI Nutrition - NPO Code Status -patient is DNR I spoke to patient's grandson who is a nurse assessment analyst at [facility] at bedside and updated him with patient's current status including respiratory failure, septic shock. I explained him the patient is critically ill and has guarded prognosis. I answered all his questions Total Critical Care Time - 45 minutes Due to a high probability of clinically significant, life threatening deterioration, the patient required my highest level of preparedness to intervene emergently and I personally spent this critical care time directly and personally managing the patient. This critical care time included obtaining a history; examining the patient; pulse oximetry; ordering and review of studies; arranging urgent treatment with development of a management plan; evaluation of patient's response to treatment; frequent reassessment; and discussions with other providers. It was exclusive of separately billable procedures and treating other patients and teaching time. Please see Assessment and Plan section and the rest of the note for further information on patient assessment and treatment Sisal Operator Consult Note Consult date: 07/01/24 Reason for consult: Septic shock, acute respiratory failure HPI: Edison Burr is a 89 year old male with past medical history of coronary disease hypertension, AFib and hyperlipidemia presented to ER yesterday with chief complaint of abdominal pain. Workup in the ER showed elevated WBC and CT scan of the abdomen showed Air seen in the wall of the cecum and ascending colon with thickening in the ascending colon. Differential include infection with gas-forming organism versus ischemia versus connective tissue disease. Clinical correlation and further evaluation advised. No free air. Minimal free fluid seen around the liver. Patient was diagnosed with sepsis and shock and also was in AFib with RVR. Patient was given 2 L fluid bolus in the ER, started on antibiotics and was taken to operating room. Patient underwent Exploratory laparotomy and Right hemicolectomy with ileocolic anastomosis for acute bowel ischemia. Patient was given additional 2 L of fluid in the OR for hypertension and started on vasopressors. On arrival to the ICU patient was on mechanical ventilation in AFib with RVR. I was called by the night nurse. Patient was given additional fluid bolus, started on amiodarone infusion sedation for mechanical ventilation and vasopressin was added At this time patient continues to be in septic shock and on mechanical ventilation and unable to provide any further history. History was obtained from chart review and physician sign-out. Review of Systems 2 Review of Systems: ROS unobtainable: Yes unobtainable due to endotracheal tube, unobtainable due to medical condition and unobtainable due to mental status [facility] Past Medical History Medical History Chronic anticoagulation Atrial fibrillation Chronic hyponatremia COVID-19 vaccine series completed (~03/2020) Coronary artery disease Glaucoma Hyperlipidemia Essential hypertension Surgical History Surgical History History of detached retina repair left eye History of tonsillectomy and adenoidectomy History of cardiac catheterization (~04/2019) with old prior occlusions noted, not a candidate for stent at that time per patient report Family History Family History Father Cerebral aneurysm Mother Heart disease Social History Social History Social History: He has been since 1956. He and his live in [place]. He is now residing at [place] for indeterminate amount of time. He is retired from [employer]. They have 5 biological children and adopted 2 of their grand children. He usually drinks 3-4 mixed drinks a night. Code Status: DNR/DNI Smoking packs per day: 1 Smoking cigarettes per day: 20.0 Years smoked: 5 Smoking pack-years: 5.00 Smoking status: Former smoker Tobacco type: cigarettes Second hand tobacco smoke exposure: No Alcohol intake: current Drinks per week: 21 Substance use: never Lack of Transportation: No Lack of Food: Never True Current Housing: I Have Housing Concerned About Future Housing: No Difficulty Paying Gas/Electric Bills: No Difficulty Paying for Meds: No Currently Unemployed: No Education: Decline to Answer Difficulty w/ Childcare or Family Care: No Gender identity (if verbalized by the patient): Male Sexual Orientation (if Verbalized by the Patient): Straight or Heterosexual Spiritual care concerns: No Meds Home Medications and Allergies Home Medications ?Medication ?Instructions ?Recorded ?Confirmed ?Type furosemide 20 mg tablet 20 mg PO DAILY 09/22/21 07/01/24 History atorvastatin 20 mg tablet 20 mg PO DAILY 09/23/21 07/01/24 History diphenhydramine 25 2 tablet PO HS PRN sleep 09/23/21 07/01/24 History mg-acetaminophen 500 mg tablet (Tylenol PM Extra Strength) fluticasone propionate 50 1 spray intranasal HS 09/23/21 07/01/24 History mcg/actuation nasal spray,suspension latanoprost 0.005 % eye drops 1 drp LEFT EYE QPM 09/23/21 07/01/24 History sacubitril 24 mg-valsartan 26 mg 0.5 tablet PO BID 09/23/21 07/01/24 History tablet (Entresto) acetaminophen 325 mg capsule 650 mg PO BID PRN pain (scale 07/01/24 07/01/24 History score 1-3) apixaban 2.5 mg tablet (Eliquis) 2.5 mg PO BID 07/01/24 07/01/24 History clopidogrel 75 mg tablet 75 mg PO DAILY 07/01/24 07/01/24 History ergocalciferol (vitamin D2) 1,250 1,250 mcg PO WEEKLY 07/01/24 07/01/24 History mcg (50,000 unit) capsule folic acid 1 mg tablet 1 mg PO DAILY 07/01/24 07/01/24 History guaifenesin 100 mg/5 mL oral liquid 200 mg PO Q4H PRN cough 07/01/24 07/01/24 History levothyroxine 25 mcg capsule 25 mcg PO DAILY 07/01/24 07/01/24 History metoprolol succinate 25 mg 12.5 mg PO DAILY 07/01/24 07/01/24 History tablet,extended release 24 hr mirtazapine 15 mg tablet 15 mg PO DAILY 07/01/24 07/01/24 History ondansetron 4 mg disintegrating 4 mg PO Q6H PRN nausea and vomiting 07/01/24 07/01/24 History tablet pantoprazole 40 mg tablet,delayed 40 mg PO BID 07/01/24 07/01/24 History release polyethylene glycol 3350 17 17 g PO DAILY PRN constipation 07/01/24 07/01/24 History gram/dose oral powder (Miralax) potassium chloride 20 mEq 20 meq PO DAILY 07/01/24 07/01/24 History tablet,extended release(part/cryst) (Klor-Con M) sodium chloride 0.65 % nasal spray 1 spray intranasal Q4H PRN nasal 07/01/24 07/01/24 History aerosol (Saline Nasal) congestion spironolactone 25 mg tablet 12.5 mg PO DAILY 07/01/24 07/01/24 History (Aldactone) tramadol 50 mg tablet 50 mg PO Q6H PRN pain (scale score 07/01/24 07/01/24 History 7-10) triamcinolone acetonide 0.1 % 1 applic topical BID PRN rash 07/01/24 07/01/24 History topical ointment Allergies Allergy/AdvReac Type Severity Reaction Status Date / Time No Known Allergies Allergy Verified 07/01/24 05:18 Vital Signs Vital Signs - 24 hr 06/30/24 18:09 06/30/24 18:34 06/30/24 18:39 Temperature Pulse Rate 146 H 171 H 158 H Respiratory Rate 17 33 H 29 H Blood Pressure 125/73 Pulse Oximetry 98 94 Oxygen Delivery Oxygen Flow Rate Fraction of Inspired Oxygen 06/30/24 18:57 06/30/24 19:00 06/30/24 19:08 Temperature Pulse Rate 159 H 155 H Respiratory Rate 11 L 15 Blood Pressure Pulse Oximetry 91 Oxygen Delivery Nasal Cannula Oxygen Flow Rate 2 Fraction of Inspired Oxygen 06/30/24 19:11 06/30/24 19:15 06/30/24 19:41 Temperature Pulse Rate 163 H 163 H 142 H Respiratory Rate 21 H 22 H 22 H Blood Pressure Pulse Oximetry 92 Oxygen Delivery Oxygen Flow Rate Fraction of Inspired Oxygen 06/30/24 20:10 06/30/24 21:03 06/30/24 21:04 Temperature Pulse Rate 131 H 136 H 139 H Respiratory Rate 19 22 H 20 Blood Pressure 104/65 Pulse Oximetry Oxygen Delivery Oxygen Flow Rate Fraction of Inspired Oxygen 06/30/24 21:05 06/30/24 21:06 06/30/24 21:11 Temperature Pulse Rate 142 H 129 H 135 H Respiratory Rate 20 24 H 17 Blood Pressure Pulse Oximetry Oxygen Delivery Oxygen Flow Rate Fraction of Inspired Oxygen 06/30/24 21:13 06/30/24 21:23 06/30/24 21:30 Temperature 36.8 C Pulse Rate 132 H 131 H 144 H Respiratory Rate 18 16 Blood Pressure 107/56 L Pulse Oximetry 95 93 Oxygen Delivery Oxygen Flow Rate Fraction of Inspired Oxygen 06/30/24 21:34 06/30/24 21:35 06/30/24 21:36 Temperature Pulse Rate 144 H 144 H 135 H Respiratory Rate 21 H 18 24 H Blood Pressure 74/54 L Pulse Oximetry 94 94 Oxygen Delivery Oxygen Flow Rate Fraction of Inspired Oxygen 06/30/24 21:37 06/30/24 21:38 06/30/24 21:39 Temperature Pulse Rate 145 H 143 H 145 H Respiratory Rate 19 21 H 20 Blood Pressure 68/54 L Pulse Oximetry Oxygen Delivery Oxygen Flow Rate Fraction of Inspired Oxygen 06/30/24 21:40 06/30/24 21:41 06/30/24 21:42 Temperature Pulse Rate 125 H 126 H 120 H Respiratory Rate 25 H 17 15 Blood Pressure 66/45 L Pulse Oximetry 95 95 94 Oxygen Delivery Oxygen Flow Rate Fraction of Inspired Oxygen 06/30/24 21:43 06/30/24 21:44 06/30/24 21:45 Temperature Pulse Rate 115 H 110 H 123 H Respiratory Rate 19 20 20 Blood Pressure 56/47 L Pulse Oximetry 95 95 95 Oxygen Delivery Oxygen Flow Rate Fraction of Inspired Oxygen 06/30/24 21:46 06/30/24 21:47 06/30/24 21:48 Temperature Pulse Rate 124 H 126 H 125 H Respiratory Rate 18 18 19 Blood Pressure 62/48 L Pulse Oximetry 95 95 95 Oxygen Delivery Oxygen Flow Rate Fraction of Inspired Oxygen 06/30/24 21:49 06/30/24 21:50 06/30/24 21:52 Temperature Pulse Rate 137 H 128 H 138 H Respiratory Rate 19 21 H 20 Blood Pressure Pulse Oximetry 95 94 94 Oxygen Delivery Oxygen Flow Rate Fraction of Inspired Oxygen 06/30/24 21:53 06/30/24 21:54 06/30/24 21:54 Temperature Pulse Rate 131 H 130 H 129 H Respiratory Rate 19 17 Blood Pressure 63/45 L Pulse Oximetry 95 95 Oxygen Delivery Oxygen Flow Rate Fraction of Inspired Oxygen 06/30/24 21:56 06/30/24 21:57 06/30/24 22:00 Temperature Pulse Rate 127 H 130 H 130 H Respiratory Rate 19 19 20 Blood Pressure 68/47 L Pulse Oximetry 96 95 Oxygen Delivery Oxygen Flow Rate Fraction of Inspired Oxygen 06/30/24 22:01 06/30/24 22:03 06/30/24 22:04 Temperature Pulse Rate 121 H 116 H 119 H Respiratory Rate 20 19 22 H Blood Pressure 66/47 L Pulse Oximetry 95 95 96 Oxygen Delivery Oxygen Flow Rate Fraction of Inspired Oxygen 06/30/24 22:05 06/30/24 22:06 06/30/24 22:07 Temperature Pulse Rate 120 H 116 H 118 H Respiratory Rate 25 H 21 H 20 Blood Pressure 69/52 L Pulse Oximetry 94 97 95 Oxygen Delivery Oxygen Flow Rate Fraction of Inspired Oxygen 06/30/24 22:08 06/30/24 22:09 06/30/24 22:10 Temperature Pulse Rate 115 H 110 H 113 H Respiratory Rate 19 22 H 19 Blood Pressure Pulse Oximetry 95 96 96 Oxygen Delivery Oxygen Flow Rate Fraction of Inspired Oxygen 06/30/24 22:11 06/30/24 22:12 06/30/24 22:13 Temperature Pulse Rate 114 H 109 H 117 H Respiratory Rate 21 H 22 H 18 Blood Pressure 60/48 L Pulse Oximetry 93 90 90 Oxygen Delivery Oxygen Flow Rate Fraction of Inspired Oxygen 06/30/24 22:14 06/30/24 22:15 06/30/24 22:16 Temperature Pulse Rate 110 H 105 H 119 H Respiratory Rate 29 H 24 H 24 H Blood Pressure 78/52 L Pulse Oximetry 95 95 95 Oxygen Delivery Oxygen Flow Rate Fraction of Inspired Oxygen 06/30/24 22:17 06/30/24 22:21 06/30/24 22:22 Temperature Pulse Rate 121 H 119 H 104 H Respiratory Rate 23 H 20 16 Blood Pressure 66/37 L Pulse Oximetry 96 95 Oxygen Delivery Oxygen Flow Rate Fraction of Inspired Oxygen 06/30/24 22:28 06/30/24 22:34 06/30/24 22:38 Temperature Pulse Rate 114 H 121 H 115 H Respiratory Rate 22 H 21 H Blood Pressure 98/80 L 49/36 L Pulse Oximetry Oxygen Delivery Oxygen Flow Rate Fraction of Inspired Oxygen 06/30/24 22:40 06/30/24 22:40 07/01/24 01:05 Temperature Pulse Rate 114 H 116 H 152 H Respiratory Rate 17 Blood Pressure 49/36 L 159/84 H Pulse Oximetry 97 Oxygen Delivery Oxygen Flow Rate Fraction of Inspired Oxygen 07/01/24 01:11 07/01/24 01:15 07/01/24 01:23 Temperature Pulse Rate 139 H 149 H 141 H Respiratory Rate Blood Pressure 147/82 H 154/67 H Pulse Oximetry 98 Oxygen Delivery Mechanical Ventilation Oxygen Flow Rate Fraction of Inspired Oxygen 40 07/01/24 01:45 07/01/24 01:45 07/01/24 02:00 Temperature Pulse Rate 137 H 137 H 132 H Respiratory Rate 16 16 16 Blood Pressure Pulse Oximetry Oxygen Delivery Oxygen Flow Rate Fraction of Inspired Oxygen 07/01/24 02:00 07/01/24 02:00 07/01/24 02:05 Temperature Pulse Rate 132 H 132 H 133 H Respiratory Rate 16 Blood Pressure 107/44 L 112/49 L Pulse Oximetry Oxygen Delivery Oxygen Flow Rate Fraction of Inspired Oxygen 07/01/24 02:10 07/01/24 02:15 07/01/24 02:16 Temperature Pulse Rate 116 H 118 H 115 H Respiratory Rate Blood Pressure 61/44 L 91/41 L 104/45 L Pulse Oximetry Oxygen Delivery Oxygen Flow Rate Fraction of Inspired Oxygen 07/01/24 02:35 07/01/24 02:52 07/01/24 02:57 Temperature Pulse Rate 113 H 124 H 118 H Respiratory Rate Blood Pressure 103/47 L 102/47 L 94/48 L Pulse Oximetry Oxygen Delivery Oxygen Flow Rate Fraction of Inspired Oxygen 07/01/24 02:58 07/01/24 02:58 07/01/24 03:08 Temperature Pulse Rate 132 H 132 H 126 H Respiratory Rate 16 16 16 Blood Pressure Pulse Oximetry Oxygen Delivery Oxygen Flow Rate Fraction of Inspired Oxygen 07/01/24 03:08 07/01/24 03:17 07/01/24 03:38 Temperature Pulse Rate 126 H 118 H 119 H Respiratory Rate 16 Blood Pressure 83/42 L 116/55 L Pulse Oximetry Oxygen Delivery Oxygen Flow Rate Fraction of Inspired Oxygen 07/01/24 03:47 07/01/24 04:00 07/01/24 04:00 Temperature Pulse Rate 115 H 117 H 117 H Respiratory Rate 16 Blood Pressure 91/45 L 106/51 L Pulse Oximetry Oxygen Delivery Oxygen Flow Rate Fraction of Inspired Oxygen 07/01/24 04:00 07/01/24 04:00 07/01/24 04:00 Temperature Pulse Rate 117 H 117 H 117 H Respiratory Rate 16 16 Blood Pressure 106/51 L Pulse Oximetry 98 Oxygen Delivery Mechanical Ventilation Oxygen Flow Rate Fraction of Inspired Oxygen 35 07/01/24 04:00 07/01/24 04:00 07/01/24 05:05 Temperature 36.9 C Pulse Rate 113 H 113 H 111 H Respiratory Rate 16 Blood Pressure 107/51 L Pulse Oximetry 100 99 Oxygen Delivery Mechanical Ventilation Oxygen Flow Rate Fraction of Inspired Oxygen 35 07/01/24 05:32 07/01/24 06:00 07/01/24 06:00 Temperature Pulse Rate 109 H 109 H Respiratory Rate 16 Blood Pressure 104/50 L Pulse Oximetry Oxygen Delivery Oxygen Flow Rate Fraction of Inspired Oxygen 30 07/01/24 06:00 07/01/24 06:00 07/01/24 06:00 Temperature Pulse Rate 109 H 109 H 107 H Respiratory Rate 16 Blood Pressure 104/50 L Pulse Oximetry Oxygen Delivery Oxygen Flow Rate Fraction of Inspired Oxygen 07/01/24 06:00 07/01/24 06:15 07/01/24 06:15 Temperature Pulse Rate 107 H 105 H 105 H Respiratory Rate 16 Blood Pressure 97/64 L 110/51 L 110/51 L Pulse Oximetry 100 Oxygen Delivery Oxygen Flow Rate Fraction of Inspired Oxygen 07/01/24 07:04 07/01/24 07:04 07/01/24 07:53 Temperature Pulse Rate 104 H 104 H 112 H Respiratory Rate Blood Pressure 115/54 L 115/54 L Pulse Oximetry 100 Oxygen Delivery Mechanical Ventilation Oxygen Flow Rate Fraction of Inspired Oxygen 30 07/01/24 07:59 07/01/24 08:00 07/01/24 08:00 Temperature 37.3 C Pulse Rate 98 106 H 106 H Respiratory Rate 16 Blood Pressure 104/49 L 102/50 L 102/50 L Pulse Oximetry 100 Oxygen Delivery Oxygen Flow Rate Fraction of Inspired Oxygen 07/01/24 08:00 07/01/24 08:00 07/01/24 08:05 Temperature Pulse Rate 106 H 106 H 104 H Respiratory Rate 16 16 Blood Pressure 102/48 L Pulse Oximetry Oxygen Delivery Oxygen Flow Rate Fraction of Inspired Oxygen 07/01/24 08:15 07/01/24 08:30 Temperature Pulse Rate 109 H 107 H Respiratory Rate Blood Pressure 117/54 L 100/49 L Pulse Oximetry Oxygen Delivery Oxygen Flow Rate Fraction of Inspired Oxygen Exam 2 Narrative: General: Pt is sedated, intubated and on mechanical ventilation Lungs/Chest: Trachea central Coarse BS B/L, few bibasilar crackles Cardiac: Irregular, tachycardia. Normal S1 S2. No murmurs Circulation: I was not able to palpate either dorsalis pedis or posterior tibial in both feet. Feet are cold. Poor capillary refill. Legs are mottled Abdomen: He is morbidly obese, absent bowel sounds he has diffuse tenderness as he grimaces on abdominal palpation, midline incision covered under dressing. Extremities: Bilateral lower extreme edema present : Sneed in place Neurologic: Unable to assess due to sedation. Pupils are slightly different in size with left slightly bigger than right but both are reactive to light Results Labs 07/01/24 06:08 07/01/24 06:07 Labs: Impressions Abdomen/Pelvis CT 06/30/24 20:18 IMPRESSION: 1. Air seen in the wall of the cecum and ascending colon with thickening in the ascending colon. Differential include infection with gas-forming organism versus ischemia versus connective tissue disease. Clinical correlation and further evaluation advised. No free air. Minimal free fluid seen around the liver. 2. Dilated small bowel loops in the distal ileum with transition zone seen in the terminal ileum area. Follow-up advised. 3. Bilateral basal atelectasis with left pleural effusion. 4. Cardiomegaly. 5. Slightly thickened wall of the bladder. Evaluation for cystitis advised Dr. Puckett was notified with the result of the patient at 8:40 PM on June 30, 2024. Chest X-Ray 07/01/24 06:22 IMPRESSION: Mild pulmonary vascular congestion, without focal infiltrate or effusion. Chest X-Ray 07/01/24 06:23 IMPRESSION: Left hilar infiltrate is suspected, with a small left-sided pleural effusion. Mild pulmonary vascular congestion persists. Supportive lines and tubes in good position. Chest X-Ray 07/01/24 06:36 IMPRESSION: Mild pulmonary vascular congestion with bibasilar atelectasis. Withdrawal of the endotracheal tube approximately 3 cm is suggested for optimal radiographic placement. Remaining support catheters in good position. Short CBC 06/30/24 06/30/24 07/01/24 Range/Units 18:41 22:18 02:15 WBC 20.2 H 21.5 H (4.5-10.0) K/mm3 Hgb 13.9 L 11.8 L 11.0 L (14.0-18.0) g/dL Hct 43.9 37.0 L 34.3 L (42.0-52.0) % Plt Count 194 D 141 L (150-375) k/mm3 07/01/24 Range/Units 06:08 WBC 30.9 H (4.5-10.0) K/mm3 Hgb 11.7 L (14.0-18.0) g/dL Hct 36.1 L (42.0-52.0) % Plt Count 184 (150-375) k/mm3 BMP 06/30/24 07/01/24 07/01/24 18:41 02:15 06:07 Sodium 133 L 132 L 132 L Potassium 4.2 3.5 4.0 Chloride 96 L 101 100 Carbon Dioxide 27 21 L 23 BUN 13 12 13 Creatinine 0.84 0.79 0.79 Glucose 100 133 H 131 H Calcium 9.1 7.9 L 8.0 L Cardiac Enzymes 06/30/24 Range/Units 18:40 Troponin I < 0.012 (0.000-0.034) ng/mL Liver Function 06/30/24 07/01/24 Range/Units 18:41 06:07 Total Bilirubin 1.3 1.3 (0.2-1.3) mg/dL AST 29 25 (17-59) U/L ALT 19 15 (6-50) U/L Alkaline Phosphatase 73 55 (38-126) U/L Albumin 4.2 3.2 L (3.5-5.1) g/dL Urine 06/30/24 Range/Units 21:07 Urine Color Yellow (Yellow) Urine Appearance Cloudy H (Clear) Urine pH 7.5 (5.0-9.0) Ur Specific [place] 1.036 H (1.001-1.035) Urine Protein Trace (Negative) mg/dL Urine Glucose (UA) Negative (Negative) mg/dL Quality VTE Prophylaxis VTE prophylaxis: pharmacologic ordered Hospitalist MIPS Advance Care Plan I have confirmed that the patient's Advanced Care Plan is present, code status is documented, or surrogate decision maker is listed in patient medical record.: Yes Medication Reconciliation I have utilized all available resources to obtain, update and review the patients current medications (includes all prescriptions, OTC, herbals, cannabis, and nutritional supplements).: Yes
[2024-07-01] MEDS: PERFLUTREN LIPID MICROSPHERES 1.5 ML VIAL DILUTED TO 10 ML TOTAL VOLUME IV PUSH (10:15)
--- NOTE | 2024-07-01 10:19 | P.PNGS_ITS ---
Progress Note: A&P Assessment and Plan (1) Acute ischemia of large intestine: Code(s): K55.039 - Acute (reversible) ischemia of large intestine, extent unspecified Status: Acute Assessment and Plan: * Patient underwent exploratory laparotomy with right hemicolectomy overnight. He is intubated and sedated in the ICU. * Continue NG tube decompression, bowel rest, and IV fluids while awaiting return of bowel function. (2) Peritonitis (acute) generalized: Code(s): K65.0 - Generalized (acute) peritonitis Status: Acute Assessment and Plan: * Continue IV antibiotics, NG tube, bowel rest (3) Septic shock: Code(s): A41.9 - Sepsis, unspecified organism; R65.21 - Severe sepsis with septic shock Status: Acute Assessment and Plan: * Secondary to acute bowel ischemia, s/p right hemicolectomy for source control. * Continue IV antibiotics and critical care management. Wean vasopressors as tolerated. Vent management per cement fittings maker. Agree with resuming IV fluids with close monitoring of fluid status. (4) Atrial fibrillation: Code(s): I48.91 - Unspecified atrial fibrillation Status: Inactive Assessment and Plan: * Currently on an amiodarone infusion Subjective Subjective Date/Time Seen: 07/01/24 08:39 Interval history: Patient seen in the ICU. He is intubated and sedated. He is on a Levophed and amiodarone infusion. Nursing has not had to titrate up his vasopressors since around 4:00 a.m. and is planning to titrate down this morning as his blood pressure is currently stable. IV fluids were held, but are being resumed this morning by cement fittings maker, as well as albumin. Urine output low since surgery. I spoke with his son, Vikas, who is at the bedside. Review of Systems Review of Systems: ROS unobtainable: Yes unobtainable due to endotracheal tube Exam Const: General: ill appearing Orientation/consciousness: patient obtunded (Intubated and sedated) Resp: Effort & Inspection: abnormal respiratory pattern (On mechanical ventilator) Cardio: Rate: tachycardic Rhythm: abnormal rhythm irregularly irregular GI: Inspection: incision (Dressing dry and intact) and other (Mildly distended) GI Palp: Yes Soft to palpation and Yes Other GI palpation findings present (Exam limited as patient is sedated) Auscultation: absent bowel sounds Urinary Catheter: Urinary Catheter: patent and draining Neuro: General: other (Patient intubated and sedated) Objective Data Vital Signs Vital Signs: Vital Signs - 24 hr 06/30/24 18:09 06/30/24 18:34 06/30/24 18:39 Temperature Pulse Rate 146 H 171 H 158 H Respiratory Rate 17 33 H 29 H Blood Pressure 125/73 Pulse Oximetry 98 94 Oxygen Delivery Oxygen Flow Rate Fraction of Inspired Oxygen 06/30/24 18:57 06/30/24 19:00 06/30/24 19:08 Temperature Pulse Rate 159 H 155 H Respiratory Rate 11 L 15 Blood Pressure Pulse Oximetry 91 Oxygen Delivery Nasal Cannula Oxygen Flow Rate 2 Fraction of Inspired Oxygen 06/30/24 19:11 06/30/24 19:15 06/30/24 19:41 Temperature Pulse Rate 163 H 163 H 142 H Respiratory Rate 21 H 22 H 22 H Blood Pressure Pulse Oximetry 92 Oxygen Delivery Oxygen Flow Rate Fraction of Inspired Oxygen 06/30/24 20:10 06/30/24 21:03 06/30/24 21:04 Temperature Pulse Rate 131 H 136 H 139 H Respiratory Rate 19 22 H 20 Blood Pressure 104/65 Pulse Oximetry Oxygen Delivery Oxygen Flow Rate Fraction of Inspired Oxygen 06/30/24 21:05 06/30/24 21:06 06/30/24 21:11 Temperature Pulse Rate 142 H 129 H 135 H Respiratory Rate 20 24 H 17 Blood Pressure Pulse Oximetry Oxygen Delivery Oxygen Flow Rate Fraction of Inspired Oxygen 06/30/24 21:13 06/30/24 21:23 06/30/24 21:30 Temperature 98.3 F Pulse Rate 132 H 131 H 144 H Respiratory Rate 18 16 Blood Pressure 107/56 L Pulse Oximetry 95 93 Oxygen Delivery Oxygen Flow Rate Fraction of Inspired Oxygen 06/30/24 21:34 06/30/24 21:35 06/30/24 21:36 Temperature Pulse Rate 144 H 144 H 135 H Respiratory Rate 21 H 18 24 H Blood Pressure 74/54 L Pulse Oximetry 94 94 Oxygen Delivery Oxygen Flow Rate Fraction of Inspired Oxygen 06/30/24 21:37 06/30/24 21:38 06/30/24 21:39 Temperature Pulse Rate 145 H 143 H 145 H Respiratory Rate 19 21 H 20 Blood Pressure 68/54 L Pulse Oximetry Oxygen Delivery Oxygen Flow Rate Fraction of Inspired Oxygen 06/30/24 21:40 06/30/24 21:41 06/30/24 21:42 Temperature Pulse Rate 125 H 126 H 120 H Respiratory Rate 25 H 17 15 Blood Pressure 66/45 L Pulse Oximetry 95 95 94 Oxygen Delivery Oxygen Flow Rate Fraction of Inspired Oxygen 06/30/24 21:43 06/30/24 21:44 06/30/24 21:45 Temperature Pulse Rate 115 H 110 H 123 H Respiratory Rate 19 20 20 Blood Pressure 56/47 L Pulse Oximetry 95 95 95 Oxygen Delivery Oxygen Flow Rate Fraction of Inspired Oxygen 06/30/24 21:46 06/30/24 21:47 06/30/24 21:48 Temperature Pulse Rate 124 H 126 H 125 H Respiratory Rate 18 18 19 Blood Pressure 62/48 L Pulse Oximetry 95 95 95 Oxygen Delivery Oxygen Flow Rate Fraction of Inspired Oxygen 06/30/24 21:49 06/30/24 21:50 06/30/24 21:52 Temperature Pulse Rate 137 H 128 H 138 H Respiratory Rate 19 21 H 20 Blood Pressure Pulse Oximetry 95 94 94 Oxygen Delivery Oxygen Flow Rate Fraction of Inspired Oxygen 06/30/24 21:53 06/30/24 21:54 06/30/24 21:54 Temperature Pulse Rate 131 H 130 H 129 H Respiratory Rate 19 17 Blood Pressure 63/45 L Pulse Oximetry 95 95 Oxygen Delivery Oxygen Flow Rate Fraction of Inspired Oxygen 06/30/24 21:56 06/30/24 21:57 06/30/24 22:00 Temperature Pulse Rate 127 H 130 H 130 H Respiratory Rate 19 19 20 Blood Pressure 68/47 L Pulse Oximetry 96 95 Oxygen Delivery Oxygen Flow Rate Fraction of Inspired Oxygen 06/30/24 22:01 06/30/24 22:03 06/30/24 22:04 Temperature Pulse Rate 121 H 116 H 119 H Respiratory Rate 20 19 22 H Blood Pressure 66/47 L Pulse Oximetry 95 95 96 Oxygen Delivery Oxygen Flow Rate Fraction of Inspired Oxygen 06/30/24 22:05 06/30/24 22:06 06/30/24 22:07 Temperature Pulse Rate 120 H 116 H 118 H Respiratory Rate 25 H 21 H 20 Blood Pressure 69/52 L Pulse Oximetry 94 97 95 Oxygen Delivery Oxygen Flow Rate Fraction of Inspired Oxygen 06/30/24 22:08 06/30/24 22:09 06/30/24 22:10 Temperature Pulse Rate 115 H 110 H 113 H Respiratory Rate 19 22 H 19 Blood Pressure Pulse Oximetry 95 96 96 Oxygen Delivery Oxygen Flow Rate Fraction of Inspired Oxygen 06/30/24 22:11 06/30/24 22:12 06/30/24 22:13 Temperature Pulse Rate 114 H 109 H 117 H Respiratory Rate 21 H 22 H 18 Blood Pressure 60/48 L Pulse Oximetry 93 90 90 Oxygen Delivery Oxygen Flow Rate Fraction of Inspired Oxygen 06/30/24 22:14 06/30/24 22:15 06/30/24 22:16 Temperature Pulse Rate 110 H 105 H 119 H Respiratory Rate 29 H 24 H 24 H Blood Pressure 78/52 L Pulse Oximetry 95 95 95 Oxygen Delivery Oxygen Flow Rate Fraction of Inspired Oxygen 06/30/24 22:17 06/30/24 22:21 06/30/24 22:22 Temperature Pulse Rate 121 H 119 H 104 H Respiratory Rate 23 H 20 16 Blood Pressure 66/37 L Pulse Oximetry 96 95 Oxygen Delivery Oxygen Flow Rate Fraction of Inspired Oxygen 06/30/24 22:28 06/30/24 22:34 06/30/24 22:38 Temperature Pulse Rate 114 H 121 H 115 H Respiratory Rate 22 H 21 H Blood Pressure 98/80 L 49/36 L Pulse Oximetry Oxygen Delivery Oxygen Flow Rate Fraction of Inspired Oxygen 06/30/24 22:40 06/30/24 22:40 07/01/24 01:05 Temperature Pulse Rate 114 H 116 H 152 H Respiratory Rate 17 Blood Pressure 49/36 L 159/84 H Pulse Oximetry 97 Oxygen Delivery Oxygen Flow Rate Fraction of Inspired Oxygen 07/01/24 01:11 07/01/24 01:15 07/01/24 01:23 Temperature Pulse Rate 139 H 149 H 141 H Respiratory Rate Blood Pressure 147/82 H 154/67 H Pulse Oximetry 98 Oxygen Delivery Mechanical Ventilation Oxygen Flow Rate Fraction of Inspired Oxygen 40 07/01/24 01:45 07/01/24 01:45 07/01/24 02:00 Temperature Pulse Rate 137 H 137 H 132 H Respiratory Rate 16 16 16 Blood Pressure Pulse Oximetry Oxygen Delivery Oxygen Flow Rate Fraction of Inspired Oxygen 07/01/24 02:00 07/01/24 02:00 07/01/24 02:05 Temperature Pulse Rate 132 H 132 H 133 H Respiratory Rate 16 Blood Pressure 107/44 L 112/49 L Pulse Oximetry Oxygen Delivery Oxygen Flow Rate Fraction of Inspired Oxygen 07/01/24 02:10 05/26/25 02:15 07/01/24 02:16 Temperature Pulse Rate 116 H 118 H 115 H Respiratory Rate Blood Pressure 61/44 L 91/41 L 104/45 L Pulse Oximetry Oxygen Delivery Oxygen Flow Rate Fraction of Inspired Oxygen 07/01/24 02:35 07/01/24 02:52 07/01/24 02:57 Temperature Pulse Rate 113 H 124 H 118 H Respiratory Rate Blood Pressure 103/47 L 102/47 L 94/48 L Pulse Oximetry Oxygen Delivery Oxygen Flow Rate Fraction of Inspired Oxygen 07/01/24 02:58 07/01/24 02:58 07/01/24 03:08 Temperature Pulse Rate 132 H 132 H 126 H Respiratory Rate 16 16 16 Blood Pressure Pulse Oximetry Oxygen Delivery Oxygen Flow Rate Fraction of Inspired Oxygen 07/01/24 03:08 07/01/24 03:17 07/01/24 03:38 Temperature Pulse Rate 126 H 118 H 119 H Respiratory Rate 16 Blood Pressure 83/42 L 116/55 L Pulse Oximetry Oxygen Delivery Oxygen Flow Rate Fraction of Inspired Oxygen 07/01/24 03:47 07/01/24 04:00 07/01/24 04:00 Temperature Pulse Rate 115 H 117 H 117 H Respiratory Rate 16 Blood Pressure 91/45 L 106/51 L Pulse Oximetry Oxygen Delivery Oxygen Flow Rate Fraction of Inspired Oxygen 07/01/24 04:00 07/01/24 04:00 07/01/24 04:00 Temperature Pulse Rate 117 H 117 H 117 H Respiratory Rate 16 16 Blood Pressure 106/51 L Pulse Oximetry 98 Oxygen Delivery Mechanical Ventilation Oxygen Flow Rate Fraction of Inspired Oxygen 35 07/01/24 04:00 07/01/24 04:00 07/01/24 05:05 Temperature 98.4 F Pulse Rate 113 H 113 H 111 H Respiratory Rate 16 Blood Pressure 107/51 L Pulse Oximetry 100 99 Oxygen Delivery Mechanical Ventilation Oxygen Flow Rate Fraction of Inspired Oxygen 35 07/01/24 05:32 07/01/24 06:00 07/01/24 06:00 Temperature Pulse Rate 109 H 109 H Respiratory Rate 16 Blood Pressure 104/50 L Pulse Oximetry Oxygen Delivery Oxygen Flow Rate Fraction of Inspired Oxygen 30 07/01/24 06:00 07/01/24 06:00 07/01/24 06:00 Temperature Pulse Rate 109 H 109 H 107 H Respiratory Rate 16 Blood Pressure 104/50 L Pulse Oximetry Oxygen Delivery Oxygen Flow Rate Fraction of Inspired Oxygen 07/01/24 06:00 07/01/24 06:15 07/01/24 06:15 Temperature Pulse Rate 107 H 105 H 105 H Respiratory Rate 16 Blood Pressure 97/64 L 110/51 L 110/51 L Pulse Oximetry 100 Oxygen Delivery Oxygen Flow Rate Fraction of Inspired Oxygen 07/01/24 07:04 07/01/24 07:04 07/01/24 07:53 Temperature Pulse Rate 104 H 104 H 112 H Respiratory Rate Blood Pressure 115/54 L 115/54 L Pulse Oximetry 100 Oxygen Delivery Mechanical Ventilation Oxygen Flow Rate Fraction of Inspired Oxygen 30 07/01/24 07:59 07/01/24 08:00 07/01/24 08:00 Temperature 99.2 F Pulse Rate 98 106 H 106 H Respiratory Rate 16 Blood Pressure 104/49 L 102/50 L 102/50 L Pulse Oximetry 100 Oxygen Delivery Oxygen Flow Rate Fraction of Inspired Oxygen 07/01/24 08:00 07/01/24 08:00 07/01/24 08:00 Temperature Pulse Rate 106 H 106 H 106 H Respiratory Rate 16 16 16 Blood Pressure Pulse Oximetry 100 Oxygen Delivery Mechanical Ventilation Oxygen Flow Rate Fraction of Inspired Oxygen 30 07/01/24 08:00 07/01/24 08:05 07/01/24 08:15 Temperature Pulse Rate 104 H 109 H Respiratory Rate Blood Pressure 102/48 L 117/54 L Pulse Oximetry Oxygen Delivery Oxygen Flow Rate Fraction of Inspired Oxygen 30 07/01/24 08:30 07/01/24 08:35 07/01/24 08:40 Temperature Pulse Rate 107 H 107 H 108 H Respiratory Rate Blood Pressure 100/49 L 110/52 L 111/54 L Pulse Oximetry Oxygen Delivery Oxygen Flow Rate Fraction of Inspired Oxygen 07/01/24 08:45 07/01/24 09:00 07/01/24 09:00 Temperature Pulse Rate 114 H 111 H 111 H Respiratory Rate 20 Blood Pressure 113/57 L 125/67 Pulse Oximetry Oxygen Delivery Oxygen Flow Rate Fraction of Inspired Oxygen 07/01/24 09:05 07/01/24 09:13 07/01/24 09:20 Temperature Pulse Rate 111 H 112 H 111 H Respiratory Rate Blood Pressure 108/56 L 82/42 L 88/45 L Pulse Oximetry Oxygen Delivery Oxygen Flow Rate Fraction of Inspired Oxygen 07/01/24 09:25 07/01/24 09:30 07/01/24 09:45 Temperature Pulse Rate 102 H 107 H 107 H Respiratory Rate Blood Pressure 101/49 L 102/50 L 92/45 L Pulse Oximetry Oxygen Delivery Oxygen Flow Rate Fraction of Inspired Oxygen 07/01/24 10:00 07/01/24 10:00 07/01/24 10:05 Temperature 99.3 F Pulse Rate 105 H 105 H 115 H Respiratory Rate 16 Blood Pressure 111/55 L 96/47 L 110/58 L Pulse Oximetry 100 Oxygen Delivery Oxygen Flow Rate Fraction of Inspired Oxygen Intake/Output Intake/Output: Intake & Output 06/28/24 06/29/24 06/30/24 07/01/24 23:59 23:59 23:59 23:59 Intake Total 2700 1477.1 Output Total 300 Balance 2700 1177.1 Meds/Results Medications: Active Medications Generic Name Dose Route Start Last Admin Trade Name Freq PRN Reason Stop Dose Admin Dextrose 12.5 gm 07/01/24 01:32 Dextrose 50% 25 Gm/50 Ml Syringe IV PUSH PRN PRN Hypoglycemia Protocol Enoxaparin Sodium 40 mg 07/01/24 09:00 07/01/24 08:40 Enoxaparin 40 Mg/0.4 Ml Syringe SUB-Q 40 mg DAILY ROZ Administration Glucagon 1 mg 07/01/24 01:32 Glucagon For Inj 1 Mg Vial IM PRN PRN Hypoglycemia Protocol Glucose 15 gm 07/01/24 01:32 Glucose Oral Gel 15 Gm Of Glucse In 37.5 Gm Tube PO PRN PRN Hypoglycemia Protocol Hydrocortisone Sodium Succinate 100 mg 07/01/24 14:00 Hydrocortisone Sodium Succinate 100 Mg/2 Ml Vial IV PUSH Q8HR ROZ Norepinephrine Bitartrate 8 mg in 250 mls @ 39.375 mls/hr 06/30/24 22:10 07/01/24 10:05 Levophed 8 Mg/D5w 250 Ml IV CONT 23 mcg/min .Q6H21M ROZ 43.13 mls/hr Titration Protocol 21 MCG/MIN Lactated Ringer's 1,000 mls @ 100 mls/hr 07/01/24 01:15 07/01/24 03:25 Lr - Lactated Ringers Iv IV CONT Not Given .Q10H ROZ Piperacillin/Tazobactam/Dextrose 3.375 gm in 50 mls @ 100 mls/hr 07/01/24 04:00 07/01/24 09:23 Zosyn 3.375 Gm/Ns 50 Ml IVPB Infused Q6H ROZ Infusion Fentanyl Citrate 2,500 mcg in 250 mls @ 10 mls/hr 07/01/24 01:35 07/01/24 09:00 Fentanyl 2,500 Mcg/Ns 250 Ml IV CONT 100 mcg/hr .Q25H ROZ 10 mls/hr Titration Protocol 100 MCG/HR Midazolam HCl 100 mg in 100 mls @ 2 mls/hr 07/01/24 01:35 07/01/24 08:00 Versed 100 Mg/Ns 100 Ml IV CONT 2 mg/hr .Q50H ROZ 2 mls/hr Titration Protocol 2 MG/HR Dextrose 1,000 mls @ 100 mls/hr 07/01/24 01:32 Dextrose 5% 1,000 Ml IVPB PRN PRN Hypoglycemia Protocol Amiodarone HCl/Dextrose 360 mg in 200 mls @ 16.667 mls/hr 07/01/24 08:00 0 07/01/24 07:04 Nexterone 360 Mg/D5w 200 Ml IV CONT 0.5 mg/min .Q12H ROZ 16.67 mls/hr Administration 0.5 MG/MIN Vasopressin 100 units/ 100 mls @ 2.4 mls/hr 07/01/24 03:30 07/01/24 08:00 Dextrose IV CONT 0.04 units/min .[id number] ROZ 2.4 mls/hr Titration Protocol 0.04 UNITS/MIN Albumin Human 100 mls @ 60 mls/hr 07/01/24 12:00 Albutein IVPB 07/02/24 07:39 Q6HR [facility] Insulin Aspart 2 - 5 units 07/01/24 06:00 07/01/24 06:03 Insulin Aspart (*Bkc) 100 Units/Ml SUB-Q Not Given Q6HR [facility] Protocol Levothyroxine Sodium 12.5 mcg 07/01/24 06:30 07/01/24 06:14 Levothyroxine Sodium Inj 100 Mcg/5 Ml Vial IV PUSH 12.5 mcg DAILY@0630 [facility] Administration Multi-Ingred Cream/Lotion/Oil/Oint 1 applic 07/01/24 09:00 07/01/24 08:41 Mineral Oil/White Petrolatum Ointment EACH EYE 1 applic Q12HR ROZ Administration Naloxone HCl 0.1 mg 07/01/24 01:15 Naloxone Hcl 0.4 Mg/Ml Vial IV PUSH Q2M PRN Opiate Reversal Ondansetron HCl 4 mg 07/01/24 01:15 Ondansetron Inj 4 Mg/2 Ml Vial IV PUSH Q4H PRN Nausea And Vomiting Pantoprazole Sodium 40 mg 07/01/24 09:00 07/01/24 08:40 Pantoprazole Sodium Iv 40 Mg Vial IV PUSH 40 mg Q12HR ROZ Administration Perflutren Lipid Microsphere 0 ml 07/01/24 08:06 Perflutren Lipid Microspheres 1.5 Ml Vial Diluted To 10 Ml Total Volume IV PUSH 07/04/24 08:06 ONCE PRN adequate visualization Protocol Sodium Chloride 10 ml 07/01/24 06:00 07/01/24 06:04 Central Line Flush IV PUSH 10 ml Q8HR ROZ Administration Sodium Chloride 20 ml 07/01/24 02:34 Central Line Flush IV PUSH PRN PRN after blood draws Radiology Results: ITS Impressions Abdomen/Pelvis CT 06/30/24 20:18 IMPRESSION: 1. Air seen in the wall of the cecum and ascending colon with thickening in the ascending colon. Differential include infection with gas-forming organism versus ischemia versus connective tissue disease. Clinical correlation and further evaluation advised. No free air. Minimal free fluid seen around the liver. 2. Dilated small bowel loops in the distal ileum with transition zone seen in the terminal ileum area. Follow-up advised. 3. Bilateral basal atelectasis with left pleural effusion. 4. Cardiomegaly. 5. Slightly thickened wall of the bladder. Evaluation for cystitis advised Dr. Puckett was notified with the result of the patient at 8:40 PM on June 30, 2024. Chest X-Ray 07/01/24 06:36 IMPRESSION: Mild pulmonary vascular congestion with bibasilar atelectasis. Withdrawal of the endotracheal tube approximately 3 cm is suggested for optimal radiographic placement. Remaining support catheters in good position. Labs Labs: Laboratory Results - last 24 hr 06/30/24 06/30/24 06/30/24 18:40 18:41 21:06 WBC 20.2 H RBC 4.45 L Hgb 13.9 L Hct 43.9 MCV 98.7 MCH 31.2 MCHC 31.7 L RDW 13.6 Plt Count 194 D MPV 8.4 Immature Gran % (Auto) 0.5 Neut % (Auto) 94.0 H Lymph % (Auto) 3.0 L [place] % (Auto) 2.1 L Eos % (Auto) 0.2 Baso % (Auto) 0.2 Lymph # (Auto) 0.61 L [place] # (Auto) 0.4 Eos # (Auto) 0.0 Baso # (Auto) 0.1 Abs Immat Gran (auto) 0.10 H Absolute Neuts (auto) 19.0 H Absolute Nucleated RBC 0.000 Band Neutrophils % Not Reportable Nucleated RBC % 0.0 Platelet Estimate Adequate Schistocytes None seen PT INR APTT D-Dimer Puncture Site ABG pH ABG pCO2 ABG pO2 ABG PO2/FiO2 Ratio ABG HCO3 ABG O2 Saturation ABG O2 Content ABG Base Excess A-a Gradient Oxyhemoglobin Carboxyhemoglobin Methemoglobin Reduced Hemoglobin Total Hemoglobin O2 Delivery Device O2 Liters/Min Minute Volume Vent Rate Vent Mode FiO2 Tidal Volume PEEP Peak Inspir Pressure Pressure Support Sodium 133 L Potassium 4.2 Chloride 96 L Carbon Dioxide 27 Anion Gap 10 BUN 13 Creatinine 0.84 Estim Creat Clear Calc 67 Estimated GFR > 60 Glucose 100 POC Capillary Glucose Lactic Acid 2.6 H 1.5 Calcium 9.1 Phosphorus Magnesium 1.5 L Total Bilirubin 1.3 AST 29 ALT 19 Alkaline Phosphatase 73 Troponin I < 0.012 NT-Pro-B Natriuret Pep 3290 H Total Protein 7.0 Albumin 4.2 Lipase 95 Procalcitonin Urine Color Urine Appearance Urine pH Ur Specific [place] Urine Protein Urine Glucose (UA) Urine Ketones Ur Blood (Man) Urine Nitrate Urine Bilirubin Urine Urobilinogen Add Ur Microanalysis Leukocyte Esterase Rfl Urine RBC Urine WBC Ur Squamous Epith Cells Urine Bacteria Urine Casts Nasal MRSA (PCR) Blood Type O Positive Antibody Screen Negative 06/30/24 06/30/24 07/01/24 21:07 22:18 00:00 WBC RBC Hgb 11.8 L Hct 37.0 L MCV MCH MCHC RDW Plt Count MPV Immature Gran % (Auto) Neut % (Auto) Lymph % (Auto) [place] % (Auto) Eos % (Auto) Baso % (Auto) Lymph # (Auto) [place] # (Auto) Eos # (Auto) Baso # (Auto) Abs Immat Gran (auto) Absolute Neuts (auto) Absolute Nucleated RBC Band Neutrophils % Nucleated RBC % Platelet Estimate Schistocytes PT 17.7 H INR 1.4 APTT 30.6 D-Dimer 1.21 H Puncture Site Artline ABG pH 7.273 L* ABG pCO2 39.9 ABG pO2 395.1 H ABG PO2/FiO2 Ratio 3.95 ABG HCO3 18.0 L ABG O2 Saturation 99.8 ABG O2 Content 18.1 ABG Base Excess -8.3 A-a Gradient 278.0 Oxyhemoglobin 98.7 Carboxyhemoglobin 0.9 Methemoglobin 0.3 Reduced Hemoglobin 0.1 Total Hemoglobin 12.3 O2 Delivery Device Ventilator O2 Liters/Min Not Reportable Minute Volume Not Reportable Vent Rate 10 Vent Mode Cmv FiO2 100 Tidal Volume 500 PEEP 0 Peak Inspir Pressure Not Reportable Pressure Support Sodium Potassium Chloride Carbon Dioxide Anion Gap BUN Creatinine Estim Creat Clear Calc Estimated GFR Glucose POC Capillary Glucose Lactic Acid Calcium Phosphorus Magnesium Total Bilirubin AST ALT Alkaline Phosphatase Troponin I NT-Pro-B Natriuret Pep Total Protein Albumin Lipase Procalcitonin Urine Color Yellow Urine Appearance Cloudy H Urine pH 7.5 Ur Specific [place] 1.036 H Urine Protein Trace Urine Glucose (UA) Negative Urine Ketones 1+ H Ur Blood (Man) Negative Urine Nitrate Negative Urine Bilirubin Negative Urine Urobilinogen 1.0 Add Ur Microanalysis Reviewed Leukocyte Esterase Rfl Negative Urine RBC 0-2 Urine WBC 6-10 H Ur Squamous Epith Cells Moderate Urine Bacteria 1+ H Urine Casts 3-5 Nasal MRSA (PCR) Blood Type Antibody Screen 07/01/24 07/01/24 07/01/24 01:54 02:15 05:55 WBC 21.5 H RBC 3.44 L Hgb 11.0 L Hct 34.3 L MCV 99.7 MCH 32.0 MCHC 32.1 RDW 13.7 Plt Count 141 L MPV 8.4 Immature Gran % (Auto) Neut % (Auto) Lymph % (Auto) [place] % (Auto) Eos % (Auto) Baso % (Auto) Lymph # (Auto) [place] # (Auto) Eos # (Auto) Baso # (Auto) Abs Immat Gran (auto) Absolute Neuts (auto) Absolute Nucleated RBC Band Neutrophils % Nucleated RBC % Platelet Estimate Schistocytes PT INR APTT D-Dimer Puncture Site Artline ABG pH 7.320 L ABG pCO2 40.6 ABG pO2 78.4 L ABG PO2/FiO2 Ratio 1.96 ABG HCO3 20.4 L ABG O2 Saturation 94.7 L ABG O2 Content 16.1 ABG Base Excess -5.3 A-a Gradient 160.1 Oxyhemoglobin 94.3 Carboxyhemoglobin Methemoglobin Reduced Hemoglobin Total Hemoglobin 12.1 O2 Delivery Device Ventilator O2 Liters/Min Not Reportable Minute Volume Not Reportable Vent Rate 16 Vent Mode Cmv FiO2 40 Tidal Volume 450 PEEP 5 Peak Inspir Pressure Not Reportable Pressure Support Not Reportable Sodium 132 L Potassium 3.5 Chloride 101 Carbon Dioxide 21 L Anion Gap 10 BUN 12 Creatinine 0.79 Estim Creat Clear Calc 71 Estimated GFR > 60 Glucose 133 H POC Capillary Glucose 116 H Lactic Acid Calcium 7.9 L Phosphorus 3.2 Magnesium 1.4 L Total Bilirubin AST ALT Alkaline Phosphatase Troponin I NT-Pro-B Natriuret Pep Total Protein Albumin Lipase Procalcitonin 3.5 Urine Color Urine Appearance Urine pH Ur Specific [place] Urine Protein Urine Glucose (UA) Urine Ketones Ur Blood (Man) Urine Nitrate Urine Bilirubin Urine Urobilinogen Add Ur Microanalysis Leukocyte Esterase Rfl Urine RBC Urine WBC Ur Squamous Epith Cells Urine Bacteria Urine Casts Nasal MRSA (PCR) Blood Type Antibody Screen 07/01/24 07/01/24 07/01/24 06:06 06:07 06:08 WBC 30.9 H RBC 3.67 L Hgb 11.7 L Hct 36.1 L MCV 98.4 MCH 31.9 MCHC 32.4 RDW 13.8 Plt Count 184 MPV 8.5 Immature Gran % (Auto) Neut % (Auto) Lymph % (Auto) [place] % (Auto) Eos % (Auto) Baso % (Auto) Lymph # (Auto) [place] # (Auto) Eos # (Auto) Baso # (Auto) Abs Immat Gran (auto) Absolute Neuts (auto) Absolute Nucleated RBC Band Neutrophils % Nucleated RBC % Platelet Estimate Schistocytes PT 17.8 H INR 1.4 APTT D-Dimer Puncture Site ABG pH ABG pCO2 ABG pO2 ABG PO2/FiO2 Ratio ABG HCO3 ABG O2 Saturation ABG O2 Content ABG Base Excess A-a Gradient Oxyhemoglobin Carboxyhemoglobin Methemoglobin Reduced Hemoglobin Total Hemoglobin O2 Delivery Device O2 Liters/Min Minute Volume Vent Rate Vent Mode FiO2 Tidal Volume PEEP Peak Inspir Pressure Pressure Support Sodium 132 L Potassium 4.0 Chloride 100 Carbon Dioxide 23 Anion Gap 9 BUN 13 Creatinine 0.79 Estim Creat Clear Calc 72 Estimated GFR > 60 Glucose 131 H POC Capillary Glucose Lactic Acid 2.4 H Calcium 8.0 L Phosphorus Magnesium 2.3 Total Bilirubin 1.3 AST 25 ALT 15 Alkaline Phosphatase 55 Troponin I NT-Pro-B Natriuret Pep Total Protein 5.0 L Albumin 3.2 L Lipase Procalcitonin Urine Color Urine Appearance Urine pH Ur Specific [place] Urine Protein Urine Glucose (UA) Urine Ketones Ur Blood (Man) Urine Nitrate Urine Bilirubin Urine Urobilinogen Add Ur Microanalysis Leukocyte Esterase Rfl Urine RBC Urine WBC Ur Squamous Epith Cells Urine Bacteria Urine Casts Nasal MRSA (PCR) Not detected Blood Type Antibody Screen
[2024-07-01 11:26] LABS: Glucose Point of Care 93 mg/dl (65-105)
--- NOTE | 2024-07-01 11:41 | IVDEFINITY ---
Prior to administration of IV Definity the patient was educated on the risks and benefits of the imaging enhancing agent including potential adverse side effects. The patient verbalized understanding. Allergies were verified. No exclusion criteria were identified and at least one of the following inclusion criteria were met: 1) physician request, 2) patient technically difficult to image (per the [place] [employer] guidelines of two or more segments not discernable within the apical view), or 3) questionable left ventricular function. ?
[2024-07-01] MEDS: NOREPINEPHRINE 8 MG/D5W 250 ML 8 MG/250 ML BAG 37.5 MG IV CONT (12:00)
[2024-07-01] MEDS: ALBUMIN HUMAN 25% 25 GM/100 ML 100 ML IVPB ×2 (12:01→18:53)
[2024-07-01] MEDS: HYDROCORTISONE SODIUM SUCCINATE 100 MG/2 ML VIAL IV PUSH ×2 (14:32→21:19)
--- NOTE | 2024-07-01 15:21 | PM.IMPN ---
Progress Note: A&P Assessment and Plan (1) Septic shock: Code(s): A41.9 - Sepsis, unspecified organism; R65.21 - Severe sepsis with septic shock Status: Acute Assessment and Plan: Septic shock secondary to bowel perforation and peritonitis Patient has received more than 4 L of crystalloids. I will decrease IV fluid rate to 100 mL/hour Will give 5% % albumin bolus and 25% albumin to minimize third-spacing Continue Levophed and vasopressin infusion Add stress dose hydrocortisone Blood and urine cultures have been sent and are pending Continue empiric Zosyn Check echocardiogram (2) Chronic atrial fibrillation with RVR: Code(s): I48.20 - Chronic atrial fibrillation, unspecified Status: Acute Assessment and Plan: Currently in RVR. Continue amiodarone infusion. Anticoagulation is on hold (3) Respiratory failure: Qualifiers: Chronicity: acute Respiratory failure complication: unspecified whether with hypoxia or hypercapnia Qualified Code(s): J96.00 - Acute respiratory failure, unspecified whether with hypoxia or hypercapnia Code(s): J96.90 - Respiratory failure, unspecified, unspecified whether with hypoxia or hypercapnia Status: Acute Assessment and Plan: Acute Respiratory failure secondary to septic shock, peritonitis, bowel ischemia perforation, general anaesthesia Patient now intubated and on mechanical ventilation Chest x-ray reviewed and ET tube has already been adjusted. Continue full mechanical ventilation support to prevent hypoxemia/hypercarbia and end organ damage. ABG and vent settings reviewed Continue mechanical ventilation until hemodynamics improved and then and will evaluate for weaning Low tidal volume ventilation strategy to prevent volutrauma (4) Chronic anticoagulation: Code(s): Z79.01 - snf (current) use of anticoagulants Status: Acute Assessment and Plan: Patient was on Eliquis and received FFP for the surgery. Continue to hold anticoagulation at this time due to high risk of bleeding (5) Acute ischemia of large intestine: Code(s): K55.039 - Acute (reversible) ischemia of large intestine, extent unspecified Status: Acute Assessment and Plan: Status post exploratory laparotomy and right hemicolectomy NPO Management per General surgery (6) Peritonitis (acute) generalized: Code(s): K65.0 - Generalized (acute) peritonitis Status: Acute Assessment and Plan: See above Subjective Date/time seen: 07/01/24 15:21 Interval history: Patient is currently intubated. Patient underwent exploratory laparotomy with right hemicolectomy overnight. Review of Systems Review of Systems: ROS unobtainable: Yes unobtainable due to endotracheal tube, unobtainable due to medical condition and unobtainable due to mental status Exam Narrative: General: Pt is sedated, intubated and on mechanical ventilation Lungs/Chest: Trachea central Coarse BS B/L, few bibasilar crackles Cardiac: Irregular, tachycardia. Normal S1 S2. No murmurs Circulation: I was not able to palpate either dorsalis pedis or posterior tibial in both feet. Feet are cold. Poor capillary refill. Legs are mottled Abdomen: He is morbidly obese, absent bowel sounds he has diffuse tenderness as he grimaces on abdominal palpation, midline incision covered under dressing. Extremities: Bilateral lower extreme edema present : Sneed in place Neurologic: Unable to assess due to sedation. 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 Neck: Other: Right IJ in place, No JVD, no lymphadenopathy, trachea midline Resp: Other: Coarse breath sounds bilaterally, no increased work of breathing Cardio: Other: Irregularly irregular, tachycardic rate in the low 100s to 110s, no murmur, no JVD GI: Other: Distended but soft laparoscopic incision with overlying dressing clean dry and intact, hypoactive bowel sounds : Other: Sneed catheter in place with small amount of dark yellow urine Skin: Other: 5-6 second cap refill, extremities are cool to touch, wound to the left heel that appears chronic, mottling to the extremities Neuro: Other: Nursing staff reports that the patient was pointing to the tube and trying to mimic pulling the tube out, patient was redirectable, pupillary abnormalities as mentioned above likely chronic Extrem: Other: No cyanosis, no clubbing, right radial art line in place Psych: Other: Unable to assess due to sedation Objective Data Vital Signs Vital Signs: Vital Signs - 24 hr 05/25/25 18:09 06/30/24 18:34 06/30/24 18:39 Temperature Pulse Rate 146 H 171 H 158 H Respiratory Rate 17 33 H 29 H Blood Pressure 125/73 Pulse Oximetry 98 94 Oxygen Delivery Oxygen Flow Rate Fraction of Inspired Oxygen 06/30/24 18:57 06/30/24 19:00 06/30/24 19:08 Temperature Pulse Rate 159 H 155 H Respiratory Rate 11 L 15 Blood Pressure Pulse Oximetry 91 Oxygen Delivery Nasal Cannula Oxygen Flow Rate 2 Fraction of Inspired Oxygen 06/30/24 19:11 06/30/24 19:15 06/30/24 19:41 Temperature Pulse Rate 163 H 163 H 142 H Respiratory Rate 21 H 22 H 22 H Blood Pressure Pulse Oximetry 92 Oxygen Delivery Oxygen Flow Rate Fraction of Inspired Oxygen 06/30/24 20:10 06/30/24 21:03 06/30/24 21:04 Temperature Pulse Rate 131 H 136 H 139 H Respiratory Rate 19 22 H 20 Blood Pressure 104/65 Pulse Oximetry Oxygen Delivery Oxygen Flow Rate Fraction of Inspired Oxygen 06/30/24 21:05 06/30/24 21:06 06/30/24 21:11 Temperature Pulse Rate 142 H 129 H 135 H Respiratory Rate 20 24 H 17 Blood Pressure Pulse Oximetry Oxygen Delivery Oxygen Flow Rate Fraction of Inspired Oxygen 06/30/24 21:13 06/30/24 21:23 06/30/24 21:30 Temperature 98.3 F Pulse Rate 132 H 131 H 144 H Respiratory Rate 18 16 Blood Pressure 107/56 L Pulse Oximetry 95 93 Oxygen Delivery Oxygen Flow Rate Fraction of Inspired Oxygen 06/30/24 21:34 06/30/24 21:35 06/30/24 21:36 Temperature Pulse Rate 144 H 144 H 135 H Respiratory Rate 21 H 18 24 H Blood Pressure 74/54 L Pulse Oximetry 94 94 Oxygen Delivery Oxygen Flow Rate Fraction of Inspired Oxygen 06/30/24 21:37 06/30/24 21:38 06/30/24 21:39 Temperature Pulse Rate 145 H 143 H 145 H Respiratory Rate 19 21 H 20 Blood Pressure 68/54 L Pulse Oximetry Oxygen Delivery Oxygen Flow Rate Fraction of Inspired Oxygen 06/30/24 21:40 06/30/24 21:41 06/30/24 21:42 Temperature Pulse Rate 125 H 126 H 120 H Respiratory Rate 25 H 17 15 Blood Pressure 66/45 L Pulse Oximetry 95 95 94 Oxygen Delivery Oxygen Flow Rate Fraction of Inspired Oxygen 06/30/24 21:43 06/30/24 21:44 06/30/24 21:45 Temperature Pulse Rate 115 H 110 H 123 H Respiratory Rate 19 20 20 Blood Pressure 56/47 L Pulse Oximetry 95 95 95 Oxygen Delivery Oxygen Flow Rate Fraction of Inspired Oxygen 06/30/24 21:46 06/30/24 21:47 06/30/24 21:48 Temperature Pulse Rate 124 H 126 H 125 H Respiratory Rate 18 18 19 Blood Pressure 62/48 L Pulse Oximetry 95 95 95 Oxygen Delivery Oxygen Flow Rate Fraction of Inspired Oxygen 06/30/24 21:49 06/30/24 21:50 06/30/24 21:52 Temperature Pulse Rate 137 H 128 H 138 H Respiratory Rate 19 21 H 20 Blood Pressure Pulse Oximetry 95 94 94 Oxygen Delivery Oxygen Flow Rate Fraction of Inspired Oxygen 06/30/24 21:53 06/30/24 21:54 06/30/24 21:54 Temperature Pulse Rate 131 H 130 H 129 H Respiratory Rate 19 17 Blood Pressure 63/45 L Pulse Oximetry 95 95 Oxygen Delivery Oxygen Flow Rate Fraction of Inspired Oxygen 06/30/24 21:56 06/30/24 21:57 06/30/24 22:00 Temperature Pulse Rate 127 H 130 H 130 H Respiratory Rate 19 19 20 Blood Pressure 68/47 L Pulse Oximetry 96 95 Oxygen Delivery Oxygen Flow Rate Fraction of Inspired Oxygen 06/30/24 22:01 06/30/24 22:03 06/30/24 22:04 Temperature Pulse Rate 121 H 116 H 119 H Respiratory Rate 20 19 22 H Blood Pressure 66/47 L Pulse Oximetry 95 95 96 Oxygen Delivery Oxygen Flow Rate Fraction of Inspired Oxygen 06/30/24 22:05 06/30/24 22:06 06/30/24 22:07 Temperature Pulse Rate 120 H 116 H 118 H Respiratory Rate 25 H 21 H 20 Blood Pressure 69/52 L Pulse Oximetry 94 97 95 Oxygen Delivery Oxygen Flow Rate Fraction of Inspired Oxygen 06/30/24 22:08 06/30/24 22:09 06/30/24 22:10 Temperature Pulse Rate 115 H 110 H 113 H Respiratory Rate 19 22 H 19 Blood Pressure Pulse Oximetry 95 96 96 Oxygen Delivery Oxygen Flow Rate Fraction of Inspired Oxygen 06/30/24 22:11 06/30/24 22:12 06/30/24 22:13 Temperature Pulse Rate 114 H 109 H 117 H Respiratory Rate 21 H 22 H 18 Blood Pressure 60/48 L Pulse Oximetry 93 90 90 Oxygen Delivery Oxygen Flow Rate Fraction of Inspired Oxygen 06/30/24 22:14 06/30/24 22:15 06/30/24 22:16 Temperature Pulse Rate 110 H 105 H 119 H Respiratory Rate 29 H 24 H 24 H Blood Pressure 78/52 L Pulse Oximetry 95 95 95 Oxygen Delivery Oxygen Flow Rate Fraction of Inspired Oxygen 06/30/24 22:17 06/30/24 22:21 06/30/24 22:22 Temperature Pulse Rate 121 H 119 H 104 H Respiratory Rate 23 H 20 16 Blood Pressure 66/37 L Pulse Oximetry 96 95 Oxygen Delivery Oxygen Flow Rate Fraction of Inspired Oxygen 06/30/24 22:28 06/30/24 22:34 06/30/24 22:38 Temperature Pulse Rate 114 H 121 H 115 H Respiratory Rate 22 H 21 H Blood Pressure 98/80 L 49/36 L Pulse Oximetry Oxygen Delivery Oxygen Flow Rate Fraction of Inspired Oxygen 06/30/24 22:40 06/30/24 22:40 07/01/24 01:05 Temperature Pulse Rate 114 H 116 H 152 H Respiratory Rate 17 Blood Pressure 49/36 L 159/84 H Pulse Oximetry 97 Oxygen Delivery Oxygen Flow Rate Fraction of Inspired Oxygen 07/01/24 01:11 07/01/24 01:15 07/01/24 01:23 Temperature Pulse Rate 139 H 149 H 141 H Respiratory Rate Blood Pressure 147/82 H 154/67 H Pulse Oximetry 98 Oxygen Delivery Mechanical Ventilation Oxygen Flow Rate Fraction of Inspired Oxygen 40 07/01/24 01:45 07/01/24 01:45 07/01/24 02:00 Temperature Pulse Rate 137 H 137 H 132 H Respiratory Rate 16 16 16 Blood Pressure Pulse Oximetry Oxygen Delivery Oxygen Flow Rate Fraction of Inspired Oxygen 07/01/24 02:00 07/01/24 02:00 07/01/24 02:05 Temperature Pulse Rate 132 H 132 H 133 H Respiratory Rate 16 Blood Pressure 107/44 L 112/49 L Pulse Oximetry Oxygen Delivery Oxygen Flow Rate Fraction of Inspired Oxygen 07/01/24 02:10 07/01/24 02:15 07/01/24 02:16 Temperature Pulse Rate 116 H 118 H 115 H Respiratory Rate Blood Pressure 61/44 L 91/41 L 104/45 L Pulse Oximetry Oxygen Delivery Oxygen Flow Rate Fraction of Inspired Oxygen 07/01/24 02:35 07/01/24 02:52 07/01/24 02:57 Temperature Pulse Rate 113 H 124 H 118 H Respiratory Rate Blood Pressure 103/47 L 102/47 L 94/48 L Pulse Oximetry Oxygen Delivery Oxygen Flow Rate Fraction of Inspired Oxygen 07/01/24 02:58 07/01/24 02:58 07/01/24 03:08 Temperature Pulse Rate 132 H 132 H 126 H Respiratory Rate 16 16 16 Blood Pressure Pulse Oximetry Oxygen Delivery Oxygen Flow Rate Fraction of Inspired Oxygen 07/01/24 03:08 07/01/24 03:17 07/01/24 03:38 Temperature Pulse Rate 126 H 118 H 119 H Respiratory Rate 16 Blood Pressure 83/42 L 116/55 L Pulse Oximetry Oxygen Delivery Oxygen Flow Rate Fraction of Inspired Oxygen 07/01/24 03:47 07/01/24 04:00 07/01/24 04:00 Temperature Pulse Rate 115 H 117 H 117 H Respiratory Rate 16 Blood Pressure 91/45 L 106/51 L Pulse Oximetry Oxygen Delivery Oxygen Flow Rate Fraction of Inspired Oxygen 07/01/24 04:00 07/01/24 04:00 07/01/24 04:00 Temperature Pulse Rate 117 H 117 H 117 H Respiratory Rate 16 16 Blood Pressure 106/51 L Pulse Oximetry 98 Oxygen Delivery Mechanical Ventilation Oxygen Flow Rate Fraction of Inspired Oxygen 35 07/01/24 04:00 07/01/24 04:00 07/01/24 05:05 Temperature 98.4 F Pulse Rate 113 H 113 H 111 H Respiratory Rate 16 Blood Pressure 107/51 L Pulse Oximetry 100 99 Oxygen Delivery Mechanical Ventilation Oxygen Flow Rate Fraction of Inspired Oxygen 35 07/01/24 05:32 07/01/24 06:00 07/01/24 06:00 Temperature Pulse Rate 109 H 109 H Respiratory Rate 16 Blood Pressure 104/50 L Pulse Oximetry Oxygen Delivery Oxygen Flow Rate Fraction of Inspired Oxygen 30 07/01/24 06:00 07/01/24 06:00 07/01/24 06:00 Temperature Pulse Rate 109 H 109 H 107 H Respiratory Rate 16 Blood Pressure 104/50 L Pulse Oximetry Oxygen Delivery Oxygen Flow Rate Fraction of Inspired Oxygen 07/01/24 06:00 07/01/24 06:15 07/01/24 06:15 Temperature Pulse Rate 107 H 105 H 105 H Respiratory Rate 16 Blood Pressure 97/64 L 110/51 L 110/51 L Pulse Oximetry 100 Oxygen Delivery Oxygen Flow Rate Fraction of Inspired Oxygen 07/01/24 07:04 07/01/24 07:04 07/01/24 07:53 Temperature Pulse Rate 104 H 104 H 112 H Respiratory Rate Blood Pressure 115/54 L 115/54 L Pulse Oximetry 100 Oxygen Delivery Mechanical Ventilation Oxygen Flow Rate Fraction of Inspired Oxygen 30 07/01/24 07:59 07/01/24 08:00 07/01/24 08:00 Temperature 99.2 F Pulse Rate 98 106 H 106 H Respiratory Rate 16 Blood Pressure 104/49 L 102/50 L 102/50 L Pulse Oximetry 100 Oxygen Delivery Oxygen Flow Rate Fraction of Inspired Oxygen 07/01/24 08:00 07/01/24 08:00 07/01/24 08:00 Temperature Pulse Rate 106 H 106 H 106 H Respiratory Rate 16 16 16 Blood Pressure Pulse Oximetry 100 Oxygen Delivery Mechanical Ventilation Oxygen Flow Rate Fraction of Inspired Oxygen 30 07/01/24 08:00 07/01/24 08:00 07/01/24 08:00 Temperature Pulse Rate 100 108 H Respiratory Rate Blood Pressure 103/50 L Pulse Oximetry Oxygen Delivery Oxygen Flow Rate Fraction of Inspired Oxygen 30 07/01/24 08:05 07/01/24 08:15 07/01/24 08:30 Temperature Pulse Rate 104 H 109 H 107 H Respiratory Rate Blood Pressure 102/48 L 117/54 L 100/49 L Pulse Oximetry Oxygen Delivery Oxygen Flow Rate Fraction of Inspired Oxygen 07/01/24 08:35 07/01/24 08:40 07/01/24 08:45 Temperature Pulse Rate 107 H 108 H 114 H Respiratory Rate Blood Pressure 110/52 L 111/54 L 113/57 L Pulse Oximetry Oxygen Delivery Oxygen Flow Rate Fraction of Inspired Oxygen 07/01/24 09:00 07/01/24 09:00 07/01/24 09:05 Temperature Pulse Rate 111 H 111 H 111 H Respiratory Rate 20 Blood Pressure 125/67 108/56 L Pulse Oximetry Oxygen Delivery Oxygen Flow Rate Fraction of Inspired Oxygen 07/01/24 09:13 07/01/24 09:20 07/01/24 09:25 Temperature Pulse Rate 112 H 111 H 102 H Respiratory Rate Blood Pressure 82/42 L 88/45 L 101/49 L Pulse Oximetry Oxygen Delivery Oxygen Flow Rate Fraction of Inspired Oxygen 07/01/24 09:30 07/01/24 09:45 07/01/24 10:00 Temperature 99.3 F Pulse Rate 107 H 107 H 105 H Respiratory Rate 16 Blood Pressure 102/50 L 92/45 L 111/55 L Pulse Oximetry 100 Oxygen Delivery Oxygen Flow Rate Fraction of Inspired Oxygen 07/01/24 10:00 07/01/24 10:00 07/01/24 10:00 Temperature Pulse Rate 105 H 105 H 105 H Respiratory Rate 16 Blood Pressure 96/47 L 96/47 L Pulse Oximetry Oxygen Delivery Oxygen Flow Rate Fraction of Inspired Oxygen 07/01/24 10:00 07/01/24 10:00 07/01/24 10:00 Temperature Pulse Rate 105 H 105 H 105 H Respiratory Rate 16 Blood Pressure 96/47 L Pulse Oximetry Oxygen Delivery Oxygen Flow Rate Fraction of Inspired Oxygen 07/01/24 10:05 07/01/24 10:15 07/01/24 10:27 Temperature Pulse Rate 115 H 106 H 101 H Respiratory Rate Blood Pressure 110/58 L 102/55 L Pulse Oximetry 100 Oxygen Delivery Mechanical Ventilation Oxygen Flow Rate Fraction of Inspired Oxygen 30 07/01/24 10:30 07/01/24 10:45 07/01/24 11:00 Temperature Pulse Rate 101 H 106 H 102 H Respiratory Rate Blood Pressure 107/58 L 101/50 L 111/52 L Pulse Oximetry Oxygen Delivery Oxygen Flow Rate Fraction of Inspired Oxygen 07/01/24 11:15 07/01/24 11:30 07/01/24 11:45 Temperature Pulse Rate 107 H 106 H 104 H Respiratory Rate Blood Pressure 103/48 L 105/50 L 100/47 L Pulse Oximetry Oxygen Delivery Oxygen Flow Rate Fraction of Inspired Oxygen 07/01/24 12:00 07/01/24 12:00 07/01/24 12:00 Temperature Pulse Rate 103 H 103 H 103 H Respiratory Rate Blood Pressure 97/47 L 97/47 L 97/47 L Pulse Oximetry Oxygen Delivery Oxygen Flow Rate Fraction of Inspired Oxygen 07/01/24 12:00 07/01/24 12:00 07/01/24 12:00 Temperature Pulse Rate 103 H 103 H 103 H Respiratory Rate 16 16 Blood Pressure 97/47 L Pulse Oximetry Oxygen Delivery Oxygen Flow Rate Fraction of Inspired Oxygen 07/01/24 12:00 07/01/24 12:00 07/01/24 12:00 Temperature 99.6 F Pulse Rate 103 H 106 H Respiratory Rate 16 16 Blood Pressure 115/75 Pulse Oximetry 100 100 Oxygen Delivery Mechanical Ventilation Oxygen Flow Rate Fraction of Inspired Oxygen 30 30 07/01/24 12:00 07/01/24 12:15 07/01/24 12:30 Temperature Pulse Rate 103 H 98 104 H Respiratory Rate Blood Pressure 99/48 L 100/49 L Pulse Oximetry Oxygen Delivery Oxygen Flow Rate Fraction of Inspired Oxygen 07/01/24 12:45 07/01/24 13:00 07/01/24 13:41 Temperature Pulse Rate 101 H 100 107 H Respiratory Rate Blood Pressure 100/48 L 96/47 L Pulse Oximetry 100 Oxygen Delivery Mechanical Ventilation Oxygen Flow Rate Fraction of Inspired Oxygen 30 07/01/24 14:00 07/01/24 14:00 07/01/24 14:00 Temperature 99.6 F Pulse Rate 101 H 104 H 104 H Respiratory Rate 16 Blood Pressure 94/45 L 96/47 L 96/47 L Pulse Oximetry 100 Oxygen Delivery Oxygen Flow Rate Fraction of Inspired Oxygen 07/01/24 14:00 07/01/24 14:00 07/01/24 14:00 Temperature Pulse Rate 104 H 104 H 104 H Respiratory Rate 16 16 Blood Pressure 96/47 L Pulse Oximetry Oxygen Delivery Oxygen Flow Rate Fraction of Inspired Oxygen 07/01/24 14:00 07/01/24 14:15 07/01/24 14:30 Temperature Pulse Rate 104 H 103 H 102 H Respiratory Rate Blood Pressure 101/49 L 102/48 L Pulse Oximetry Oxygen Delivery Oxygen Flow Rate Fraction of Inspired Oxygen 07/01/24 14:45 Temperature Pulse Rate 108 H Respiratory Rate Blood Pressure 95/47 L Pulse Oximetry Oxygen Delivery Oxygen Flow Rate Fraction of Inspired Oxygen Intake/Output Intake/Output: Intake & Output 06/28/24 06/29/24 06/30/24 07/01/24 23:59 23:59 23:59 23:59 Intake Total 2700 1941.2 Output Total 300 Balance 2700 1641.2 Meds/Results Medications: Active Medications Generic Name Dose Route Start Last Admin Trade Name Freq PRN Reason Stop Dose Admin Dextrose 12.5 gm 07/01/24 01:32 Dextrose 50% 25 Gm/50 Ml Syringe IV PUSH PRN PRN Hypoglycemia Protocol Enoxaparin Sodium 40 mg 05/26/25 09:00 07/01/24 08:40 Enoxaparin 40 Mg/0.4 Ml Syringe SUB-Q 40 mg DAILY ROZ Administration Glucagon 1 mg 07/01/24 01:32 Glucagon For Inj 1 Mg Vial IM PRN PRN Hypoglycemia Protocol Glucose 15 gm 07/01/24 01:32 Glucose Oral Gel 15 Gm Of Glucse In 37.5 Gm Tube PO PRN PRN Hypoglycemia Protocol Hydrocortisone Sodium Succinate 100 mg 07/01/24 14:00 07/01/24 14:32 Hydrocortisone Sodium Succinate 100 Mg/2 Ml Vial IV PUSH 100 mg Q8HR ROZ Administration Norepinephrine Bitartrate 8 mg in 250 mls @ 33.75 mls/hr 06/30/24 22:10 07/01/24 14:45 Levophed 8 Mg/D5w 250 Ml IV CONT 16 mcg/min .Q7H25M ROZ 30 mls/hr Titration Protocol 18 MCG/MIN Lactated Ringer's 1,000 mls @ 100 mls/hr 07/01/24 01:15 07/01/24 08:40 Lr - Lactated Ringers Iv IV CONT 100 mls/hr .Q10H ROZ Administration Piperacillin/Tazobactam/Dextrose 3.375 gm in 50 mls @ 100 mls/hr 07/01/24 04:00 07/01/24 09:23 Zosyn 3.375 Gm/Ns 50 Ml IVPB Infused Q6H ROZ Infusion Fentanyl Citrate 2,500 mcg in 250 mls @ 10 mls/hr 07/01/24 01:35 07/01/24 14:00 Fentanyl 2,500 Mcg/Ns 250 Ml IV CONT 100 mcg/hr .Q25H ROZ 10 mls/hr Titration Protocol 100 MCG/HR Midazolam HCl 100 mg in 100 mls @ 1 mls/hr 07/01/24 01:35 07/01/24 14:00 Versed 100 Mg/Ns 100 Ml IV CONT 1 mg/hr .Q72H ROZ 1 mls/hr Titration Protocol 1 MG/HR Dextrose 1,000 mls @ 100 mls/hr 07/01/24 01:32 Dextrose 5% 1,000 Ml IVPB PRN PRN Hypoglycemia Protocol Amiodarone HCl/Dextrose 360 mg in 200 mls @ 16.667 mls/hr 07/01/24 08:00 07/01/24 14:00 Nexterone 360 Mg/D5w 200 Ml IV CONT 0.5 mg/min .Q12H ROZ 16.67 mls/hr Infusion 0.5 MG/MIN Vasopressin 100 units/ 100 mls @ 2.4 mls/hr 07/01/24 03:30 07/01/24 14:00 Dextrose IV CONT 0.04 units/min .[id number] ROZ 2.4 mls/hr Titration Protocol 0.04 UNITS/MIN Albumin Human 100 mls @ 60 mls/hr 07/01/24 12:00 07/01/24 14:33 Albutein IVPB 07/02/24 07:39 Infused Q6HR ROZ Infusion Insulin Aspart 2 - 5 units 07/01/24 06:00 07/01/24 11:33 Insulin Aspart (*Bkc) 100 Units/Ml SUB-Q Not Given Q6HR [facility] Protocol Levothyroxine Sodium 12.5 mcg 07/01/24 06:30 07/01/24 06:14 Levothyroxine Sodium Inj 100 Mcg/5 Ml Vial IV PUSH 12.5 mcg DAILY@0630 ROZ Administration Multi-Ingred Cream/Lotion/Oil/Oint 1 applic 07/01/24 09:00 07/01/24 08:41 Mineral Oil/White Petrolatum Ointment EACH EYE 1 applic Q12HR ROZ Administration Naloxone HCl 0.1 mg 07/01/24 01:15 Naloxone Hcl 0.4 Mg/Ml Vial IV PUSH Q2M PRN Opiate Reversal Ondansetron HCl 4 mg 07/01/24 01:15 Ondansetron Inj 4 Mg/2 Ml Vial IV PUSH Q4H PRN Nausea And Vomiting Pantoprazole Sodium 40 mg 07/01/24 09:00 07/01/24 08:40 Pantoprazole Sodium Iv 40 Mg Vial IV PUSH 40 mg Q12HR ROZ Administration Sodium Chloride 10 ml 07/01/24 06:00 07/01/24 14:32 Central Line Flush IV PUSH 10 ml Q8HR ROZ Administration Sodium Chloride 20 ml 07/01/24 02:34 Central Line Flush IV PUSH PRN PRN after blood draws Radiology Results: ITS Impressions Abdomen/Pelvis CT 06/30/24 20:18 IMPRESSION: 1. Air seen in the wall of the cecum and ascending colon with thickening in the ascending colon. Differential include infection with gas-forming organism versus ischemia versus connective tissue disease. Clinical correlation and further evaluation advised. No free air. Minimal free fluid seen around the liver. 2. Dilated small bowel loops in the distal ileum with transition zone seen in the terminal ileum area. Follow-up advised. 3. Bilateral basal atelectasis with left pleural effusion. 4. Cardiomegaly. 5. Slightly thickened wall of the bladder. Evaluation for cystitis advised Dr. Puckett was notified with the result of the patient at 8:40 PM on June 30, 2024. Chest X-Ray 07/01/24 06:36 IMPRESSION: Mild pulmonary vascular congestion with bibasilar atelectasis. Withdrawal of the endotracheal tube approximately 3 cm is suggested for optimal radiographic placement. Remaining support catheters in good position. Labs Labs: Laboratory Results - last 24 hr 06/30/24 06/30/24 06/30/24 18:40 18:41 21:06 WBC 20.2 H RBC 4.45 L Hgb 13.9 L Hct 43.9 MCV 98.7 MCH 31.2 MCHC 31.7 L RDW 13.6 Plt Count 194 D MPV 8.4 Immature Gran % (Auto) 0.5 Neut % (Auto) 94.0 H Lymph % (Auto) 3.0 L [place] % (Auto) 2.1 L Eos % (Auto) 0.2 Baso % (Auto) 0.2 Lymph # (Auto) 0.61 L [place] # (Auto) 0.4 Eos # (Auto) 0.0 Baso # (Auto) 0.1 Abs Immat Gran (auto) 0.10 H Absolute Neuts (auto) 19.0 H Absolute Nucleated RBC 0.000 Band Neutrophils % Not Reportable Nucleated RBC % 0.0 Platelet Estimate Adequate Schistocytes None seen PT INR APTT D-Dimer Puncture Site ABG pH ABG pCO2 ABG pO2 ABG PO2/FiO2 Ratio ABG HCO3 ABG O2 Saturation ABG O2 Content ABG Base Excess A-a Gradient Oxyhemoglobin Carboxyhemoglobin Methemoglobin Reduced Hemoglobin Total Hemoglobin O2 Delivery Device O2 Liters/Min Minute Volume Vent Rate Vent Mode FiO2 Tidal Volume PEEP Peak Inspir Pressure Pressure Support Sodium 133 L Potassium 4.2 Chloride 96 L Carbon Dioxide 27 Anion Gap 10 BUN 13 Creatinine 0.84 Estim Creat Clear Calc 67 Estimated GFR > 60 Glucose 100 POC Capillary Glucose Lactic Acid 2.6 H 1.5 Calcium 9.1 Phosphorus Magnesium 1.5 L Total Bilirubin 1.3 AST 29 ALT 19 Alkaline Phosphatase 73 Troponin I < 0.012 NT-Pro-B Natriuret Pep 3290 H Total Protein 7.0 Albumin 4.2 Lipase 95 Procalcitonin Urine Color Urine Appearance Urine pH Ur Specific [place] Urine Protein Urine Glucose (UA) Urine Ketones Ur Blood (Man) Urine Nitrate Urine Bilirubin Urine Urobilinogen Add Ur Microanalysis Leukocyte Esterase Rfl Urine RBC Urine WBC Ur Squamous Epith Cells Urine Bacteria Urine Casts Nasal MRSA (PCR) Blood Type O Positive Antibody Screen Negative 06/30/24 06/30/24 07/01/24 21:07 22:18 00:00 WBC RBC Hgb 11.8 L Hct 37.0 L MCV MCH MCHC RDW Plt Count MPV Immature Gran % (Auto) Neut % (Auto) Lymph % (Auto) [place] % (Auto) Eos % (Auto) Baso % (Auto) Lymph # (Auto) [place] # (Auto) Eos # (Auto) Baso # (Auto) Abs Immat Gran (auto) Absolute Neuts (auto) Absolute Nucleated RBC Band Neutrophils % Nucleated RBC % Platelet Estimate Schistocytes PT 17.7 H INR 1.4 APTT 30.6 D-Dimer 1.21 H Puncture Site Artline ABG pH 7.273 L* ABG pCO2 39.9 ABG pO2 395.1 H ABG PO2/FiO2 Ratio 3.95 ABG HCO3 18.0 L ABG O2 Saturation 99.8 ABG O2 Content 18.1 ABG Base Excess -8.3 A-a Gradient 278.0 Oxyhemoglobin 98.7 Carboxyhemoglobin 0.9 Methemoglobin 0.3 Reduced Hemoglobin 0.1 Total Hemoglobin 12.3 O2 Delivery Device Ventilator O2 Liters/Min Not Reportable Minute Volume Not Reportable Vent Rate 10 Vent Mode Cmv FiO2 100 Tidal Volume 500 PEEP 0 Peak Inspir Pressure Not Reportable Pressure Support Sodium Potassium Chloride Carbon Dioxide Anion Gap BUN Creatinine Estim Creat Clear Calc Estimated GFR Glucose POC Capillary Glucose Lactic Acid Calcium Phosphorus Magnesium Total Bilirubin AST ALT Alkaline Phosphatase Troponin I NT-Pro-B Natriuret Pep Total Protein Albumin Lipase Procalcitonin Urine Color Yellow Urine Appearance Cloudy H Urine pH 7.5 Ur Specific [place] 1.036 H Urine Protein Trace Urine Glucose (UA) Negative Urine Ketones 1+ H Ur Blood (Man) Negative Urine Nitrate Negative Urine Bilirubin Negative Urine Urobilinogen 1.0 Add Ur Microanalysis Reviewed Leukocyte Esterase Rfl Negative Urine RBC 0-2 Urine WBC 6-10 H Ur Squamous Epith Cells Moderate Urine Bacteria 1+ H Urine Casts 3-5 Nasal MRSA (PCR) Blood Type Antibody Screen 07/01/24 07/01/24 07/01/24 01:54 02:15 05:55 WBC 21.5 H RBC 3.44 L Hgb 11.0 L Hct 34.3 L MCV 99.7 MCH 32.0 MCHC 32.1 RDW 13.7 Plt Count 141 L MPV 8.4 Immature Gran % (Auto) Neut % (Auto) Lymph % (Auto) [place] % (Auto) Eos % (Auto) Baso % (Auto) Lymph # (Auto) [place] # (Auto) Eos # (Auto) Baso # (Auto) Abs Immat Gran (auto) Absolute Neuts (auto) Absolute Nucleated RBC Band Neutrophils % Nucleated RBC % Platelet Estimate Schistocytes PT INR APTT D-Dimer Puncture Site Artline ABG pH 7.320 L ABG pCO2 40.6 ABG pO2 78.4 L ABG PO2/FiO2 Ratio 1.96 ABG HCO3 20.4 L ABG O2 Saturation 94.7 L ABG O2 Content 16.1 ABG Base Excess -5.3 A-a Gradient 160.1 Oxyhemoglobin 94.3 Carboxyhemoglobin Methemoglobin Reduced Hemoglobin Total Hemoglobin 12.1 O2 Delivery Device Ventilator O2 Liters/Min Not Reportable Minute Volume Not Reportable Vent Rate 16 Vent Mode Cmv FiO2 40 Tidal Volume 450 PEEP 5 Peak Inspir Pressure Not Reportable Pressure Support Not Reportable Sodium 132 L Potassium 3.5 Chloride 101 Carbon Dioxide 21 L Anion Gap 10 BUN 12 Creatinine 0.79 Estim Creat Clear Calc 71 Estimated GFR > 60 Glucose 133 H POC Capillary Glucose 116 H Lactic Acid Calcium 7.9 L Phosphorus 3.2 Magnesium 1.4 L Total Bilirubin AST ALT Alkaline Phosphatase Troponin I NT-Pro-B Natriuret Pep Total Protein Albumin Lipase Procalcitonin 3.5 Urine Color Urine Appearance Urine pH Ur Specific [place] Urine Protein Urine Glucose (UA) Urine Ketones Ur Blood (Man) Urine Nitrate Urine Bilirubin Urine Urobilinogen Add Ur Microanalysis Leukocyte Esterase Rfl Urine RBC Urine WBC Ur Squamous Epith Cells Urine Bacteria Urine Casts Nasal MRSA (PCR) Blood Type Antibody Screen 07/01/24 07/01/24 07/01/24 06:06 06:07 06:08 WBC 30.9 H RBC 3.67 L Hgb 11.7 L Hct 36.1 L MCV 98.4 MCH 31.9 MCHC 32.4 RDW 13.8 Plt Count 184 MPV 8.5 Immature Gran % (Auto) Neut % (Auto) Lymph % (Auto) [place] % (Auto) Eos % (Auto) Baso % (Auto) Lymph # (Auto) [place] # (Auto) Eos # (Auto) Baso # (Auto) Abs Immat Gran (auto) Absolute Neuts (auto) Absolute Nucleated RBC Band Neutrophils % Nucleated RBC % Platelet Estimate Schistocytes PT 17.8 H INR 1.4 APTT D-Dimer Puncture Site ABG pH ABG pCO2 ABG pO2 ABG PO2/FiO2 Ratio ABG HCO3 ABG O2 Saturation ABG O2 Content ABG Base Excess A-a Gradient Oxyhemoglobin Carboxyhemoglobin Methemoglobin Reduced Hemoglobin Total Hemoglobin O2 Delivery Device O2 Liters/Min Minute Volume Vent Rate Vent Mode FiO2 Tidal Volume PEEP Peak Inspir Pressure Pressure Support Sodium 132 L Potassium 4.0 Chloride 100 Carbon Dioxide 23 Anion Gap 9 BUN 13 Creatinine 0.79 Estim Creat Clear Calc 72 Estimated GFR > 60 Glucose 131 H POC Capillary Glucose Lactic Acid 2.4 H Calcium 8.0 L Phosphorus Magnesium 2.3 Total Bilirubin 1.3 AST 25 ALT 15 Alkaline Phosphatase 55 Troponin I NT-Pro-B Natriuret Pep Total Protein 5.0 L Albumin 3.2 L Lipase Procalcitonin Urine Color Urine Appearance Urine pH Ur Specific [place] Urine Protein Urine Glucose (UA) Urine Ketones Ur Blood (Man) Urine Nitrate Urine Bilirubin Urine Urobilinogen Add Ur Microanalysis Leukocyte Esterase Rfl Urine RBC Urine WBC Ur Squamous Epith Cells Urine Bacteria Urine Casts Nasal MRSA (PCR) Not detected Blood Type Antibody Screen 07/01/24 11:23 WBC RBC Hgb Hct MCV MCH MCHC RDW Plt Count MPV Immature Gran % (Auto) Neut % (Auto) Lymph % (Auto) [place] % (Auto) Eos % (Auto) Baso % (Auto) Lymph # (Auto) [place] # (Auto) Eos # (Auto) Baso # (Auto) Abs Immat Gran (auto) Absolute Neuts (auto) Absolute Nucleated RBC Band Neutrophils % Nucleated RBC % Platelet Estimate Schistocytes PT INR APTT D-Dimer Puncture Site ABG pH ABG pCO2 ABG pO2 ABG PO2/FiO2 Ratio ABG HCO3 ABG O2 Saturation ABG O2 Content ABG Base Excess A-a Gradient Oxyhemoglobin Carboxyhemoglobin Methemoglobin Reduced Hemoglobin Total Hemoglobin O2 Delivery Device O2 Liters/Min Minute Volume Vent Rate Vent Mode FiO2 Tidal Volume PEEP Peak Inspir Pressure Pressure Support Sodium Potassium Chloride Carbon Dioxide Anion Gap BUN Creatinine Estim Creat Clear Calc Estimated GFR Glucose POC Capillary Glucose 93 Lactic Acid Calcium Phosphorus Magnesium Total Bilirubin AST ALT Alkaline Phosphatase Troponin I NT-Pro-B Natriuret Pep Total Protein Albumin Lipase Procalcitonin Urine Color Urine Appearance Urine pH Ur Specific [place] Urine Protein Urine Glucose (UA) Urine Ketones Ur Blood (Man) Urine Nitrate Urine Bilirubin Urine Urobilinogen Add Ur Microanalysis Leukocyte Esterase Rfl Urine RBC Urine WBC Ur Squamous Epith Cells Urine Bacteria Urine Casts Nasal MRSA (PCR) Blood Type Antibody Screen Hospitalist MIPS Advance Care Plan I have confirmed that the patient's Advanced Care Plan is present, code status is documented, or surrogate decision maker is listed in patient medical record.: Yes Medication Reconciliation I have utilized all available resources to obtain, update and review the patients current medications (includes all prescriptions, OTC, herbals, cannabis, and nutritional supplements).: Yes
[2024-07-01 17:31] LABS: Glucose Point of Care 114 mg/dl (65-105)
[2024-07-01] MEDS: NOREPINEPHRINE 8 MG/D5W 250 ML 8 MG/250 ML BAG 26.25 MG IV CONT (18:00)
[2024-07-02] VITALS (53 sets, daily range): BP systolic 74–177; BP diastolic 43–89; PULSE 66–106; RESP 13–22; TEMP 36.3–37.2; O2SAT 95–100; BMI 34.3
[2024-07-02] MEDS: ALBUMIN HUMAN 25% 25 GM/100 ML 100 ML IVPB ×2 (00:01→05:23)
[2024-07-02 00:12] LABS: Glucose Point of Care 174 mg/dl (65-105)
[2024-07-02] MEDS: PIPERACILLN/TAZ 3.375GM/NS50ML 3.375 GM/50 ML BAG IVPB ×4 (03:45→21:00)
[2024-07-02] MEDS: FENTANYL 2,500MCG/NS250ML(*CRX 2,500 MCG/250 ML BAG 10 MCG IV CONT (03:53)
[2024-07-02] MEDS: LACTATED RINGERS 1,000 ML 100 ML IV CONT ×2 (04:43→14:34)
[2024-07-02 05:07] LABS: Alveolar/Arterial O2 Gradient 57.3 mmHg; Base Excess ABG -4.6 mEq/l (+/-2.0); Carboxyhemoglobin 0.8 % THb (0-2.0); Fractional Inspired Oxygen 30 %; HCO3 ABG 19.7 mEq/l (22.0-26.0); Methemoglobin ABG 0.3 %THb (0-1.5); Oxygen Saturation ABG 98.3 % (95.0-100.0); Oxyhemoglobin 97.5 % THb (90.0-100.0); PCO2 ABG 33.5 mmHg (35.0-45.0); PO2 ABG 117.2 mmHg (80.0-100.0); PO2 FiO2 Ratio Arterial Blood 3.91 %; Reduced Hemoglobin 1.4 %THb (0-5.0); Total Hemoglobin 9.3 g/dL (12.0-18.0); pH ABG 7.388 (7.350-7.450)
[2024-07-02] MEDS: CENTRAL LINE FLUSH 10 ML IV PUSH ×3 (05:23→21:00)
[2024-07-02] MEDS: HYDROCORTISONE SODIUM SUCCINATE 100 MG/2 ML VIAL IV PUSH ×3 (05:24→21:00)
[2024-07-02] MEDS: LEVOTHYROXINE SODIUM INJ 100 MCG/5 ML VIAL 12.5 MCG IV PUSH (06:15)
[2024-07-02] MEDS: AMIODARONE 360 MG/D5W 200 ML 360 MG/200 ML BAG 16.67 MG IV CONT ×2 (06:17→19:30)
[2024-07-02 06:21] LABS: Hematocrit 26.8 % (42.0-52.0); Hemoglobin 8.6 g/dL (14.0-18.0); Mean Corpuscular HGB Conc 32.1 g/dl (32-36); Mean Corpuscular Hemoglobin 31.9 pg (26-34); Mean Corpuscular Volume 99.3 fl (80-100); Mean Platelet Volume 8.8 fl (7.4-10.4); Platelet Count Result 101 k/mm3 (150-375); White Blood Count 17.1 K/mm3 (4.5-10.0)
[2024-07-02 06:49] LABS: Estimated Glomerular Filt Rate > 60
[2024-07-02 07:09] LABS: Device VENTILATOR
[2024-07-02 07:10] LABS: Arterial Blood Gas Vent Mode CMV; Arterial Blood Gas Ventilator rate 16 /MIN
[2024-07-02 07:11] LABS: Arterial Blood Gas PEEP 8 cmH2O; Arterial Blood Gas Tidal Volume 450 ml
[2024-07-02] MEDS: MAGNESIUM SULF 2 GM/WATER 50ML 2 GM/50 ML BAG IVPB (07:51)
[2024-07-02] MEDS: PANTOPRAZOLE SODIUM IV 40 MG VIAL IV PUSH ×2 (07:51→21:00)
[2024-07-02] MEDS: MINERAL OIL/WHITE PETROLATUM OINTMENT 1 APPLIC EACH EYE ×2 (07:51→21:00)
[2024-07-02] MEDS: SODIUM PHOSPHATE 20 MM in DEXTROSE 5% IN WATER 250 ML 50 MM IVPB (07:51)
[2024-07-02] MEDS: SODIUM BICARBONATE 8.4% 50 MEQ/50 ML SYRINGE 100 MEQ IV PUSH (07:51)
[2024-07-02 08:09] LABS: INR 1.8; Prothrombin Time 21.2 Seconds (11.1-14.7)
[2024-07-02 08:11] LABS: Partial Thromboplastin Time 46.9 Seconds (22.3-36.8)
[2024-07-02 08:15] LABS: Alanine Aminotransferase 9 U/L (6-50); Anion Gap 7 mmol/L (4-12); Estimated CRCL calculation 90 ml/min
[2024-07-02] MEDS: ENOXAPARIN 40 MG/0.4 ML SYRINGE SUB-Q (08:18)
[2024-07-02 08:24] LABS: Blood Urea Nitrogen 13 mg/dL (9-20); Carbon Dioxide 25 mmol/L (22-30); Chloride 98 mmol/L (98-107); Potassium 4.1 mmol/L (3.4-5.0); Sodium 130 mmol/L (137-145)
[2024-07-02 08:25] LABS: Albumin Level 3.7 g/dL (3.5-5.1); Alkaline Phosphatase 33 U/L (38-126); Aspartate Amino Transferase 13 U/L (17-59); Bilirubin,Total 1.5 mg/dL (0.2-1.3); Calcium 7.8 mg/dL (8.4-10.2); Glucose 161 mg/dL (65-110); Magnesium 2.1 mg/dL (1.6-2.3); Phosphorus 2.7 mg/dL (2.5-4.5)
--- NOTE | 2024-07-02 08:46 | WPDINTPN ---
Progress Note: A&P Assessment and Plan (1) Septic shock: Code(s): A41.9 - Sepsis, unspecified organism; R65.21 - Severe sepsis with septic shock Status: Acute Assessment and Plan: Septic shock secondary ischemic bowel but no perforation status post ex lap, right hemicolectomy with ileocolic anastomosis (07/01) Patient has received more than 4 L of crystalloids. I will decrease IV fluid rate to 100 mL/hour Received 5% % albumin bolus and 25% albumin to minimize third-spacing Continue Levophed and vasopressin infusion to maintain MAP > 65 mmHg or SBP > 100 mmHg for adequate end organs perfusion Continue stress does hydrocortisone 07/01: Preliminary blood culture results are negative x2 07/01: urine cultures pending -Continue empiric Zosyn (07/01) 07/01/2024: Echocardiogram Summary 1. The left ventricle is normal in size and systolic function. The left ventricular ejection fraction is visually estimated to be 60-65%. Paradoxical septum motion abnormality suggestive of bundle-branch block. 2. The right ventricle is poorly visualized however does appear mildly dilated with mildly reduced systolic function. 3. The valves are poorly visualized in this study however there does not appear to be any severe valvular abnormalities. (2) Respiratory failure: Qualifiers: Chronicity: acute Respiratory failure complication: unspecified whether with hypoxia or hypercapnia Qualified Code(s): J96.00 - Acute respiratory failure, unspecified whether with hypoxia or hypercapnia Code(s): J96.90 - Respiratory failure, unspecified, unspecified whether with hypoxia or hypercapnia Status: Acute Assessment and Plan: Acute Respiratory failure secondary to septic shock, peritonitis, bowel ischemia , general anaesthesia Patient now intubated and on CMV mode of ventilation, Chest x-ray reviewed and ET tube, ventilator adjusted Continue full mechanical ventilation sup Continue mechanical ventilation until hemodynamics improved and then and will evaluate for weaning Low tidal volume ventilation strategy to prevent volutrauma Sedated with fentanyl and Versed infusion, maintain RASS of 0 to-2, daily SBT and SAT (3) Chronic atrial fibrillation with RVR: Code(s): I48.20 - Chronic atrial fibrillation, unspecified Status: Acute Assessment and Plan: Currently in RVR. Continue amiodarone infusion. 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 Continue to hold anticoagulation at this time due to high risk of bleeding (5) Acute ischemia of large intestine: Code(s): K55.039 - Acute (reversible) ischemia of large intestine, extent unspecified Status: Acute Assessment and Plan: Status post exploratory laparotomy and right hemicolectomy NPO Management per General surgery (6) Peritonitis (acute) generalized: Code(s): K65.0 - Generalized (acute) peritonitis Status: Acute Assessment and Plan: See above Plan DVT prophylaxis -Lovenox Stress ulcer prophylaxis -PPI Nutrition - NPO Code Status -patient is DNR Total Critical Care Time - 33 minutes Discussed with patient's at bedside and updated her with patient's condition and plan of care Due to a high probability of clinically significant, life threatening deterioration, the patient required my highest level of preparedness to intervene emergently and I personally spent this critical care time directly and personally managing the patient. This critical care time included obtaining a history; examining the patient; pulse oximetry; ordering and review of studies; arranging urgent treatment with development of a management plan; evaluation of patient's response to treatment; frequent reassessment; and discussions with other providers. It was exclusive of separately billable procedures and treating other patients and teaching time. Please see Assessment and Plan section and the rest of the note for further information on patient assessment and treatment Subjective Date/time seen: 07/02/24 08:46 Interval history: Reason for consult: Acute respiratory failure, acute bowel ischemia septic shock status post ex lap and right hemicolectomy with ileocolonic anastomosis on 07/01/2024 07/02/2024: Patient seen and examined in the ICU, remains intubated on CMV mode of ventilation, peep of 8, 30% FiO2. Sedated with fentanyl and Versed infusion. Does not open his eyes or follow simple commands, urine output has been low overnight. Remains on Levophed and vasopressin infusion for blood pressure support. Patient is afebrile Review of Systems Review of Systems: ROS unobtainable: Yes unobtainable due to endotracheal tube, unobtainable due to medical condition and unobtainable due to mental status Exam Narrative: General: Pt is sedated, intubated and on mechanical ventilation HEENT: Pupils are reactive, left surgical pupil slightly larger than the right. Sclera is clear, ETT in Lungs/Chest: Trachea central Coarse BS B/L, few bibasilar crackles Cardiac: Irregular, tachycardia. Rate controlled Abdomen: Soft, absent bowel sounds, tenderness to palpation as he grimaces, midline incision covered under dressing. Scrotal swelling noted Extremities: Bilateral lower extremity edema, decreased pedal pulses : Sneed in place Neurologic: Patient is sedated, intubated, does not open his eyes or follow simple commands Psych: Unable to assess at this time Objective Data Vital Signs Vital Signs: Vital Signs - 24 hr 07/01/24 09:00 07/01/24 09:00 07/01/24 09:05 Temperature Pulse Rate 111 H 111 H 111 H Respiratory Rate 20 Blood Pressure 125/67 108/56 L Pulse Oximetry Oxygen Delivery Fraction of Inspired Oxygen 07/01/24 09:13 07/01/24 09:20 07/01/24 09:25 Temperature Pulse Rate 112 H 111 H 102 H Respiratory Rate Blood Pressure 82/42 L 88/45 L 101/49 L Pulse Oximetry Oxygen Delivery Fraction of Inspired Oxygen 07/01/24 09:30 07/01/24 09:45 07/01/24 10:00 Temperature 99.3 F Pulse Rate 107 H 107 H 105 H Respiratory Rate 16 Blood Pressure 102/50 L 92/45 L 111/55 L Pulse Oximetry 100 Oxygen Delivery Fraction of Inspired Oxygen 07/01/24 10:00 07/01/24 10:00 07/01/24 10:00 Temperature Pulse Rate 105 H 105 H 105 H Respiratory Rate 16 Blood Pressure 96/47 L 96/47 L Pulse Oximetry Oxygen Delivery Fraction of Inspired Oxygen 07/01/24 10:00 07/01/24 10:00 07/01/24 10:00 Temperature Pulse Rate 105 H 105 H 105 H Respiratory Rate 16 Blood Pressure 96/47 L Pulse Oximetry Oxygen Delivery Fraction of Inspired Oxygen 07/01/24 10:05 07/01/24 10:15 07/01/24 10:27 Temperature Pulse Rate 115 H 106 H 101 H Respiratory Rate Blood Pressure 110/58 L 102/55 L Pulse Oximetry 100 Oxygen Delivery Mechanical Ventilation Fraction of Inspired Oxygen 30 07/01/24 10:30 07/01/24 10:45 07/01/24 11:00 Temperature Pulse Rate 101 H 106 H 102 H Respiratory Rate Blood Pressure 107/58 L 101/50 L 111/52 L Pulse Oximetry Oxygen Delivery Fraction of Inspired Oxygen 07/01/24 11:15 07/01/24 11:30 07/01/24 11:45 Temperature Pulse Rate 107 H 106 H 104 H Respiratory Rate Blood Pressure 103/48 L 105/50 L 100/47 L Pulse Oximetry Oxygen Delivery Fraction of Inspired Oxygen 07/01/24 12:00 07/01/24 12:00 07/01/24 12:00 Temperature Pulse Rate 103 H 103 H 103 H Respiratory Rate Blood Pressure 97/47 L 97/47 L 97/47 L Pulse Oximetry Oxygen Delivery Fraction of Inspired Oxygen 07/01/24 12:00 07/01/24 12:00 07/01/24 12:00 Temperature Pulse Rate 103 H 103 H 103 H Respiratory Rate 16 16 Blood Pressure 97/47 L Pulse Oximetry Oxygen Delivery Fraction of Inspired Oxygen 07/01/24 12:00 07/01/24 12:00 07/01/24 12:00 Temperature 99.6 F Pulse Rate 103 H 106 H Respiratory Rate 16 16 Blood Pressure 115/75 Pulse Oximetry 100 100 Oxygen Delivery Mechanical Ventilation Fraction of Inspired Oxygen 30 30 07/01/24 12:00 07/01/24 12:15 07/01/24 12:30 Temperature Pulse Rate 103 H 98 104 H Respiratory Rate Blood Pressure 99/48 L 100/49 L Pulse Oximetry Oxygen Delivery Fraction of Inspired Oxygen 07/01/24 12:45 07/01/24 13:00 07/01/24 13:41 Temperature Pulse Rate 101 H 100 107 H Respiratory Rate Blood Pressure 100/48 L 96/47 L Pulse Oximetry 100 Oxygen Delivery Mechanical Ventilation Fraction of Inspired Oxygen 30 07/01/24 14:00 07/01/24 14:00 07/01/24 14:00 Temperature 99.6 F Pulse Rate 101 H 104 H 104 H Respiratory Rate 16 Blood Pressure 94/45 L 96/47 L 96/47 L Pulse Oximetry 100 Oxygen Delivery Fraction of Inspired Oxygen 07/01/24 14:00 07/01/24 14:00 07/01/24 14:00 Temperature Pulse Rate 104 H 104 H 104 H Respiratory Rate 16 16 Blood Pressure 96/47 L Pulse Oximetry Oxygen Delivery Fraction of Inspired Oxygen 07/01/24 14:00 07/01/24 14:15 07/01/24 14:30 Temperature Pulse Rate 104 H 103 H 102 H Respiratory Rate Blood Pressure 101/49 L 102/48 L Pulse Oximetry Oxygen Delivery Fraction of Inspired Oxygen 07/01/24 14:45 07/01/24 16:00 07/01/24 16:00 Temperature 99.9 F H Pulse Rate 108 H 109 H Respiratory Rate 20 Blood Pressure 95/47 L 114/55 L Pulse Oximetry 100 Oxygen Delivery Fraction of Inspired Oxygen 30 07/01/24 16:00 07/01/24 16:00 07/01/24 16:00 Temperature Pulse Rate 99 Respiratory Rate Blood Pressure 103/51 L 107/51 L Pulse Oximetry 100 Oxygen Delivery Mechanical Ventilation Fraction of Inspired Oxygen 30 07/01/24 16:00 07/01/24 16:00 07/01/24 16:00 Temperature Pulse Rate 99 101 H 98 Respiratory Rate 16 Blood Pressure 105/50 L 104/50 L Pulse Oximetry Oxygen Delivery Fraction of Inspired Oxygen 07/01/24 16:00 07/01/24 16:00 07/01/24 16:15 Temperature Pulse Rate 97 100 99 Respiratory Rate 16 Blood Pressure Pulse Oximetry 100 Oxygen Delivery Mechanical Ventilation Fraction of Inspired Oxygen 30 07/01/24 18:00 07/01/24 18:00 07/01/24 18:00 Temperature 98.5 F Pulse Rate 88 88 88 Respiratory Rate 16 Blood Pressure 123/55 L 122/64 122/64 Pulse Oximetry 100 Oxygen Delivery Fraction of Inspired Oxygen 07/01/24 18:00 07/01/24 18:00 07/01/24 18:00 Temperature Pulse Rate 88 88 91 Respiratory Rate Blood Pressure 135/61 135/61 Pulse Oximetry Oxygen Delivery Fraction of Inspired Oxygen 07/01/24 18:00 07/01/24 18:00 07/01/24 18:00 Temperature Pulse Rate 88 93 93 Respiratory Rate 16 16 Blood Pressure 117/55 L Pulse Oximetry Oxygen Delivery Fraction of Inspired Oxygen 07/01/24 20:00 07/01/24 20:00 07/01/24 20:00 Temperature Pulse Rate 85 85 85 Respiratory Rate 16 Blood Pressure 121/56 L 121/56 L Pulse Oximetry Oxygen Delivery Fraction of Inspired Oxygen 07/01/24 20:00 07/01/24 20:00 07/01/24 20:00 Temperature Pulse Rate 85 85 Respiratory Rate 16 Blood Pressure 121/56 L Pulse Oximetry Oxygen Delivery Fraction of Inspired Oxygen 30 07/01/24 20:00 07/01/24 20:00 07/01/24 20:00 Temperature 98.6 F Pulse Rate 85 84 Respiratory Rate 16 Blood Pressure 121/58 L Pulse Oximetry 100 100 Oxygen Delivery Mechanical Ventilation Fraction of Inspired Oxygen 30 07/01/24 20:30 07/01/24 20:38 07/01/24 21:00 Temperature Pulse Rate 87 87 87 Respiratory Rate Blood Pressure 114/55 L 124/59 L Pulse Oximetry 100 Oxygen Delivery Mechanical Ventilation Fraction of Inspired Oxygen 30 07/01/24 21:15 07/01/24 21:20 07/01/24 21:30 Temperature Pulse Rate 89 88 85 Respiratory Rate Blood Pressure 91/64 L 93/47 L 117/54 L Pulse Oximetry Oxygen Delivery Fraction of Inspired Oxygen 07/01/24 21:45 07/01/24 21:50 07/01/24 21:55 Temperature Pulse Rate 90 109 H 100 Respiratory Rate 22 H Blood Pressure 97/48 L 94/47 L Pulse Oximetry Oxygen Delivery Fraction of Inspired Oxygen 07/01/24 21:55 07/01/24 22:00 07/01/24 22:00 Temperature Pulse Rate 100 95 95 Respiratory Rate 16 Blood Pressure 94/47 L 99/48 L Pulse Oximetry Oxygen Delivery Fraction of Inspired Oxygen 07/01/24 22:00 07/01/24 22:00 07/01/24 22:00 Temperature Pulse Rate 95 95 94 Respiratory Rate 16 16 Blood Pressure 99/48 L 117/59 L Pulse Oximetry 100 Oxygen Delivery Fraction of Inspired Oxygen 07/01/24 22:00 07/01/24 22:00 07/01/24 22:10 Temperature Pulse Rate 94 95 89 Respiratory Rate Blood Pressure 99/48 L 110/52 L Pulse Oximetry Oxygen Delivery Fraction of Inspired Oxygen 07/01/24 22:30 07/01/24 22:45 07/01/24 22:51 Temperature Pulse Rate 84 82 82 Respiratory Rate Blood Pressure 124/60 121/58 L Pulse Oximetry 100 Oxygen Delivery Mechanical Ventilation Fraction of Inspired Oxygen 30 07/01/24 23:10 07/02/24 00:00 07/02/24 00:00 Temperature Pulse Rate 80 79 79 Respiratory Rate 16 Blood Pressure 132/63 130/60 Pulse Oximetry Oxygen Delivery Fraction of Inspired Oxygen 07/02/24 00:00 07/02/24 00:00 07/02/24 00:00 Temperature Pulse Rate 79 79 79 Respiratory Rate 16 Blood Pressure 130/60 130/60 Pulse Oximetry Oxygen Delivery Fraction of Inspired Oxygen 07/02/24 00:00 07/02/24 00:00 07/02/24 00:00 Temperature 98.8 F Pulse Rate 78 Respiratory Rate 16 Blood Pressure 130/60 Pulse Oximetry 100 100 Oxygen Delivery Mechanical Ventilation Fraction of Inspired Oxygen 30 30 07/02/24 00:00 07/02/24 00:15 07/02/24 00:30 Temperature Pulse Rate 84 80 78 Respiratory Rate Blood Pressure 121/60 118/58 L Pulse Oximetry Oxygen Delivery Fraction of Inspired Oxygen 07/02/24 01:40 07/02/24 01:45 07/02/24 01:55 Temperature Pulse Rate 77 82 81 Respiratory Rate Blood Pressure 118/58 L 81/44 L Pulse Oximetry 100 Oxygen Delivery Mechanical Ventilation Fraction of Inspired Oxygen 30 07/02/24 02:00 07/02/24 02:00 07/02/24 02:00 Temperature Pulse Rate 75 71 71 Respiratory Rate 16 Blood Pressure 148/83 H 144/70 H Pulse Oximetry Oxygen Delivery Fraction of Inspired Oxygen 07/02/24 02:00 07/02/24 02:00 07/02/24 02:00 Temperature Pulse Rate 71 71 75 Respiratory Rate 16 Blood Pressure 144/70 H Pulse Oximetry Oxygen Delivery Fraction of Inspired Oxygen 07/02/24 02:00 07/02/24 02:15 07/02/24 03:00 Temperature Pulse Rate 75 75 74 Respiratory Rate 16 Blood Pressure 142/69 H 122/60 128/63 Pulse Oximetry 100 Oxygen Delivery Fraction of Inspired Oxygen 07/02/24 03:15 07/02/24 03:53 07/02/24 03:53 Temperature Pulse Rate 75 76 76 Respiratory Rate 16 16 Blood Pressure 99/51 L Pulse Oximetry Oxygen Delivery Fraction of Inspired Oxygen 07/02/24 04:00 07/02/24 04:00 07/02/24 04:00 Temperature Pulse Rate 74 74 74 Respiratory Rate 16 Blood Pressure 128/63 128/63 Pulse Oximetry Oxygen Delivery Fraction of Inspired Oxygen 07/02/24 04:00 07/02/24 04:00 07/02/24 04:00 Temperature Pulse Rate 74 74 Respiratory Rate 16 Blood Pressure 128/63 Pulse Oximetry Oxygen Delivery Fraction of Inspired Oxygen 30 07/02/24 04:00 07/02/24 04:00 07/02/24 04:00 Temperature 98.1 F Pulse Rate 74 72 Respiratory Rate 16 Blood Pressure 128/63 Pulse Oximetry 100 100 Oxygen Delivery Mechanical Ventilation Fraction of Inspired Oxygen 30 07/02/24 04:15 07/02/24 05:08 07/02/24 06:00 Temperature Pulse Rate 76 66 72 Respiratory Rate Blood Pressure 110/54 L 121/61 Pulse Oximetry 100 Oxygen Delivery Mechanical Ventilation Fraction of Inspired Oxygen 30 07/02/24 06:00 07/02/24 06:00 07/02/24 06:00 Temperature Pulse Rate 72 72 72 Respiratory Rate 16 Blood Pressure 121/61 121/61 Pulse Oximetry Oxygen Delivery Fraction of Inspired Oxygen 07/02/24 06:00 07/02/24 06:00 07/02/24 06:00 Temperature Pulse Rate 72 72 72 Respiratory Rate 16 16 Blood Pressure 121/61 Pulse Oximetry 100 Oxygen Delivery Fraction of Inspired Oxygen 07/02/24 06:17 07/02/24 06:17 07/02/24 07:59 Temperature Pulse Rate 68 68 71 Respiratory Rate Blood Pressure 136/68 136/68 Pulse Oximetry 98 Oxygen Delivery Mechanical Ventilation Fraction of Inspired Oxygen 30 07/02/24 08:00 07/02/24 08:00 07/02/24 08:00 Temperature 97.4 F L Pulse Rate 76 76 Respiratory Rate 16 16 Blood Pressure 114/59 L Pulse Oximetry 95 95 Oxygen Delivery Mechanical Ventilation Fraction of Inspired Oxygen 30 30 07/02/24 08:04 07/02/24 08:04 07/02/24 08:05 Temperature Pulse Rate 76 76 76 Respiratory Rate 16 Blood Pressure 114/59 L 114/59 L Pulse Oximetry Oxygen Delivery Fraction of Inspired Oxygen 07/02/24 08:05 07/02/24 08:05 07/02/24 08:17 Temperature Pulse Rate 76 76 69 Respiratory Rate 16 16 Blood Pressure 114/59 L Pulse Oximetry Oxygen Delivery Fraction of Inspired Oxygen 07/02/24 08:17 07/02/24 08:17 07/02/24 08:24 Temperature Pulse Rate 66 66 68 Respiratory Rate 16 Blood Pressure 74/53 L 177/89 H Pulse Oximetry Oxygen Delivery Fraction of Inspired Oxygen 07/02/24 08:31 07/02/24 08:35 07/02/24 08:41 Temperature Pulse Rate 75 77 93 Respiratory Rate Blood Pressure 175/88 H 167/81 H 134/71 Pulse Oximetry Oxygen Delivery Fraction of Inspired Oxygen Intake/Output Intake/Output: Intake & Output 06/29/24 06/30/24 07/01/24 07/02/24 23:59 23:59 23:59 23:59 Intake Total 2700 3609.0 1691.9 Output Total 750 300 Balance 2700 2859.0 1391.9 Meds/Results Medications: Active Medications Generic Name Dose Route Start Last Admin Trade Name Freq PRN Reason Stop Dose Admin Dextrose 12.5 gm 07/01/24 01:32 Dextrose 50% 25 Gm/50 Ml Syringe IV PUSH PRN PRN Hypoglycemia Protocol Enoxaparin Sodium 40 mg 07/01/24 09:00 07/02/24 08:18 Enoxaparin 40 Mg/0.4 Ml Syringe SUB-Q 40 mg DAILY ROZ Administration Glucagon 1 mg 07/01/24 01:32 Glucagon For Inj 1 Mg Vial IM PRN PRN Hypoglycemia Protocol Glucose 15 gm 07/01/24 01:32 Glucose Oral Gel 15 Gm Of Glucse In 37.5 Gm Tube PO PRN PRN Hypoglycemia Protocol Hydrocortisone Sodium Succinate 100 mg 07/01/24 14:00 07/02/24 05:24 Hydrocortisone Sodium Succinate 100 Mg/2 Ml Vial IV PUSH 100 mg Q8HR ROZ Administration Norepinephrine Bitartrate 8 mg in 250 mls @ 13.125 mls/hr 06/30/24 22:10 07/02/24 08:41 Levophed 8 Mg/D5w 250 Ml IV CONT 6 mcg/min .Q19H3M ROZ 11.25 mls/hr Titration Protocol 7 MCG/MIN Lactated Ringer's 1,000 mls @ 100 mls/hr 07/01/24 01:15 07/02/24 04:43 Lr - Lactated Ringers Iv IV CONT 100 mls/hr .Q10H ROZ Administration Piperacillin/Tazobactam/Dextrose 3.375 gm in 50 mls @ 100 mls/hr 07/01/24 04:00 07/02/24 04:15 Zosyn 3.375 Gm/Ns 50 Ml IVPB Infused Q6H ROZ Infusion Fentanyl Citrate 2,500 mcg in 250 mls @ 0 mls/hr 07/01/24 01:35 07/02/24 08:17 Fentanyl 2,500 Mcg/Ns 250 Ml IV CONT 0 mcg/hr .Q0M ROZ 0 mls/hr Titration Protocol 0 MCG/HR Midazolam HCl 100 mg in 100 mls @ 0 mls/hr 07/01/24 01:35 07/02/24 08:17 Versed 100 Mg/Ns 100 Ml IV CONT 0 mg/hr .Q0M ROZ 0 mls/hr Titration Protocol 0 MG/HR Dextrose 1,000 mls @ 100 mls/hr 07/01/24 01:32 Dextrose 5% 1,000 Ml IVPB PRN PRN Hypoglycemia Protocol Amiodarone HCl/Dextrose 360 mg in 200 mls @ 16.667 mls/hr 07/01/24 08:00 07/02/24 08:04 Nexterone 360 Mg/D5w 200 Ml IV CONT 0.5 mg/min .Q12H ROZ 16.67 mls/hr Infusion 0.5 MG/MIN Vasopressin 100 units/ 100 mls @ 0.6 mls/hr 07/01/24 03:30 07/02/24 08:05 Dextrose IV CONT 0.01 units/min .Q72H ROZ 0.6 mls/hr Titration Protocol 0.01 UNITS/MIN Sodium Phosphate 20 mm/ 256.6667 mls @ 50 mls/hr 07/02/24 07:11 07/02/24 07:51 Dextrose IVPB 07/02/24 12:18 50 mls/hr ONCE ONE Administration Insulin Aspart 2 - 5 units 07/01/24 06:00 07/02/24 06:29 Insulin Aspart (*Bkc) 100 Units/Ml SUB-Q Not Given Q6HR [facility] Protocol Levothyroxine Sodium 12.5 mcg 07/01/24 06:30 07/02/24 06:15 Levothyroxine Sodium Inj 100 Mcg/5 Ml Vial IV PUSH 12.5 mcg DAILY@0630 ROZ Administration Multi-Ingred Cream/Lotion/Oil/Oint 1 applic 07/01/24 09:00 07/02/24 07:51 Mineral Oil/White Petrolatum Ointment EACH EYE 1 applic Q12HR ROZ Administration Naloxone HCl 0.1 mg 07/01/24 01:15 Naloxone Hcl 0.4 Mg/Ml Vial IV PUSH Q2M PRN Opiate Reversal Ondansetron HCl 4 mg 07/01/24 01:15 Ondansetron Inj 4 Mg/2 Ml Vial IV PUSH Q4H PRN Nausea And Vomiting Pantoprazole Sodium 40 mg 07/01/24 09:00 07/02/24 07:51 Pantoprazole Sodium Iv 40 Mg Vial IV PUSH 40 mg Q12HR ROZ Administration Sodium Chloride 10 ml 07/01/24 06:00 07/02/24 05:23 Central Line Flush IV PUSH 10 ml Q8HR ROZ Administration Sodium Chloride 20 ml 07/01/24 02:34 Central Line Flush IV PUSH PRN PRN after blood draws Radiology Results: ITS Impressions Abdomen/Pelvis CT 06/30/24 20:18 IMPRESSION: 1. Air seen in the wall of the cecum and ascending colon with thickening in the ascending colon. Differential include infection with gas-forming organism versus ischemia versus connective tissue disease. Clinical correlation and further evaluation advised. No free air. Minimal free fluid seen around the liver. 2. Dilated small bowel loops in the distal ileum with transition zone seen in the terminal ileum area. Follow-up advised. 3. Bilateral basal atelectasis with left pleural effusion. 4. Cardiomegaly. 5. Slightly thickened wall of the bladder. Evaluation for cystitis advised Dr. Puckett was notified with the result of the patient at 8:40 PM on June 30, 2024. Chest X-Ray 07/02/24 07:08 Impression: Small left pleural effusion with left basilar atelectasis/edema versus pneumonia. Support tubes, as above. Labs Labs: Laboratory Results - last 24 hr 07/01/24 07/01/24 07/01/24 11:23 17:26 23:57 WBC RBC Hgb Hct MCV MCH MCHC RDW Plt Count MPV PT INR APTT Puncture Site ABG pH ABG pCO2 ABG pO2 ABG PO2/FiO2 Ratio ABG HCO3 ABG O2 Saturation ABG O2 Content ABG Base Excess A-a Gradient Oxyhemoglobin Carboxyhemoglobin Methemoglobin Reduced Hemoglobin Total Hemoglobin O2 Delivery Device O2 Liters/Min Minute Volume Vent Rate Vent Mode FiO2 Tidal Volume PEEP Peak Inspir Pressure Pressure Support Sodium Potassium Chloride Carbon Dioxide Anion Gap BUN Creatinine Estim Creat Clear Calc Estimated GFR Glucose POC Capillary Glucose 93 114 H 174 H Calcium Phosphorus Magnesium Total Bilirubin AST ALT Alkaline Phosphatase Total Protein Albumin 07/02/24 07/02/24 07/02/24 04:53 06:04 07:38 WBC 17.1 H RBC 2.70 L Hgb 8.6 L D Hct 26.8 L MCV 99.3 MCH 31.9 MCHC 32.1 RDW 14.0 Plt Count 101 L MPV 8.8 PT 21.2 H INR 1.8 APTT 46.9 H Puncture Site Not Reportable ABG pH 7.388 ABG pCO2 33.5 L ABG pO2 117.2 H ABG PO2/FiO2 Ratio 3.91 ABG HCO3 19.7 L ABG O2 Saturation 98.3 ABG O2 Content 13.0 L ABG Base Excess -4.6 A-a Gradient 57.3 Oxyhemoglobin 97.5 Carboxyhemoglobin 0.8 Methemoglobin 0.3 Reduced Hemoglobin 1.4 Total Hemoglobin 9.3 L O2 Delivery Device Ventilator O2 Liters/Min Not Reportable Minute Volume Not Reportable Vent Rate 16 Vent Mode Cmv FiO2 30 Tidal Volume 450 PEEP 8 Peak Inspir Pressure Not Reportable Pressure Support Not Reportable Sodium 130 L Potassium 4.1 Chloride 98 Carbon Dioxide 25 Anion Gap 7 BUN 13 Creatinine 0.63 L Estim Creat Clear Calc 90 Estimated GFR > 60 Glucose 161 H POC Capillary Glucose Calcium 7.8 L Phosphorus 2.7 Magnesium 2.1 Total Bilirubin 1.5 H AST 13 L ALT 9 Alkaline Phosphatase 33 L Total Protein 6.0 L Albumin 3.7 Quality VTE Prophylaxis VTE prophylaxis: pharmacologic ordered
--- NOTE | 2024-07-02 11:15 | P.PNGS_ITS ---
Progress Note: A&P Assessment and Plan (1) Acute ischemia of large intestine: Code(s): K55.039 - Acute (reversible) ischemia of large intestine, extent unspecified Status: Acute Assessment and Plan: * Continue NG tube decompression, bowel rest, and IV fluids while awaiting return of bowel function. * Wean and extubate per Property Assessment Monitor (2) Peritonitis (acute) generalized: Code(s): K65.0 - Generalized (acute) peritonitis Status: Acute Assessment and Plan: * Continue IV antibiotics, NG tube, bowel rest (3) Septic shock: Code(s): A41.9 - Sepsis, unspecified organism; R65.21 - Severe sepsis with septic shock Status: Acute Assessment and Plan: * Secondary to acute bowel ischemia, s/p right hemicolectomy for source control. * Continue IV antibiotics and critical care management. Wean vasopressors as tolerated. Vent management per transmission technician. (4) Atrial fibrillation: Code(s): I48.91 - Unspecified atrial fibrillation Status: Inactive Assessment and Plan: * Currently on an amiodarone infusion Subjective Subjective Date/Time Seen: 07/02/24 11:15 Interval history: Vasopressor requirements decreasing. Slowly waking up from sedation. Still remains on ventilator. Exam GI: Inspection: distended and incision (Intact with derick) GI Palp: Yes Soft to palpation Auscultation: Hypoactive bowel sounds present Objective Data Vital Signs Vital Signs: Vital Signs - 24 hr 07/01/24 11:30 07/01/24 11:45 07/01/24 12:00 Temperature Pulse Rate 106 H 104 H 103 H Respiratory Rate Blood Pressure 105/50 L 100/47 L 97/47 L Pulse Oximetry Oxygen Delivery Fraction of Inspired Oxygen 07/01/24 12:00 07/01/24 12:00 07/01/24 12:00 Temperature Pulse Rate 103 H 103 H 103 H Respiratory Rate 16 Blood Pressure 97/47 L 97/47 L Pulse Oximetry Oxygen Delivery Fraction of Inspired Oxygen 07/01/24 12:00 07/01/24 12:00 07/01/24 12:00 Temperature Pulse Rate 103 H 103 H 103 H Respiratory Rate 16 16 Blood Pressure 97/47 L Pulse Oximetry 100 Oxygen Delivery Mechanical Ventilation Fraction of Inspired Oxygen 30 07/01/24 12:00 07/01/24 12:00 07/01/24 12:00 Temperature 99.6 F Pulse Rate 106 H 103 H Respiratory Rate 16 Blood Pressure 115/75 Pulse Oximetry 100 Oxygen Delivery Fraction of Inspired Oxygen 30 07/01/24 12:15 07/01/24 12:30 07/01/24 12:45 Temperature Pulse Rate 98 104 H 101 H Respiratory Rate Blood Pressure 99/48 L 100/49 L 100/48 L Pulse Oximetry Oxygen Delivery Fraction of Inspired Oxygen 07/01/24 13:00 07/01/24 13:41 07/01/24 14:00 Temperature 99.6 F Pulse Rate 100 107 H 101 H Respiratory Rate 16 Blood Pressure 96/47 L 94/45 L Pulse Oximetry 100 100 Oxygen Delivery Mechanical Ventilation Fraction of Inspired Oxygen 30 07/01/24 14:00 07/01/24 14:00 07/01/24 14:00 Temperature Pulse Rate 104 H 104 H 104 H Respiratory Rate 16 Blood Pressure 96/47 L 96/47 L Pulse Oximetry Oxygen Delivery Fraction of Inspired Oxygen 07/01/24 14:00 07/01/24 14:00 07/01/24 14:00 Temperature Pulse Rate 104 H 104 H 104 H Respiratory Rate 16 Blood Pressure 96/47 L Pulse Oximetry Oxygen Delivery Fraction of Inspired Oxygen 07/01/24 14:15 07/01/24 14:30 07/01/24 14:45 Temperature Pulse Rate 103 H 102 H 108 H Respiratory Rate Blood Pressure 101/49 L 102/48 L 95/47 L Pulse Oximetry Oxygen Delivery Fraction of Inspired Oxygen 07/01/24 16:00 07/01/24 16:00 07/01/24 16:00 Temperature 99.9 F H Pulse Rate 109 H Respiratory Rate 20 Blood Pressure 114/55 L 103/51 L Pulse Oximetry 100 Oxygen Delivery Fraction of Inspired Oxygen 30 07/01/24 16:00 07/01/24 16:00 07/01/24 16:00 Temperature Pulse Rate 99 99 Respiratory Rate Blood Pressure 107/51 L 105/50 L Pulse Oximetry 100 Oxygen Delivery Mechanical Ventilation Fraction of Inspired Oxygen 30 07/01/24 16:00 07/01/24 16:00 07/01/24 16:00 Temperature Pulse Rate 101 H 98 97 Respiratory Rate 16 16 Blood Pressure 104/50 L Pulse Oximetry Oxygen Delivery Fraction of Inspired Oxygen 07/01/24 16:00 07/01/24 16:15 07/01/24 18:00 Temperature 98.5 F Pulse Rate 100 99 88 Respiratory Rate 16 Blood Pressure 123/55 L Pulse Oximetry 100 100 Oxygen Delivery Mechanical Ventilation Fraction of Inspired Oxygen 30 07/01/24 18:00 07/01/24 18:00 07/01/24 18:00 Temperature Pulse Rate 88 88 88 Respiratory Rate Blood Pressure 122/64 122/64 135/61 Pulse Oximetry Oxygen Delivery Fraction of Inspired Oxygen 07/01/24 18:00 07/01/24 18:00 07/01/24 18:00 Temperature Pulse Rate 88 91 88 Respiratory Rate 16 Blood Pressure 135/61 Pulse Oximetry Oxygen Delivery Fraction of Inspired Oxygen 07/01/24 18:00 07/01/24 18:00 07/01/24 20:00 Temperature Pulse Rate 93 93 85 Respiratory Rate 16 Blood Pressure 117/55 L 121/56 L Pulse Oximetry Oxygen Delivery Fraction of Inspired Oxygen 07/01/24 20:00 07/01/24 20:00 07/01/24 20:00 Temperature Pulse Rate 85 85 85 Respiratory Rate 16 Blood Pressure 121/56 L 121/56 L Pulse Oximetry Oxygen Delivery Fraction of Inspired Oxygen 07/01/24 20:00 07/01/24 20:00 07/01/24 20:00 Temperature Pulse Rate 85 Respiratory Rate 16 Blood Pressure Pulse Oximetry 100 Oxygen Delivery Mechanical Ventilation Fraction of Inspired Oxygen 30 30 07/01/24 20:00 07/01/24 20:00 07/01/24 20:30 Temperature 98.6 F Pulse Rate 85 84 87 Respiratory Rate 16 Blood Pressure 121/58 L 114/55 L Pulse Oximetry 100 Oxygen Delivery Fraction of Inspired Oxygen 07/01/24 20:38 07/01/24 21:00 07/01/24 21:15 Temperature Pulse Rate 87 87 89 Respiratory Rate Blood Pressure 124/59 L 91/64 L Pulse Oximetry 100 Oxygen Delivery Mechanical Ventilation Fraction of Inspired Oxygen 30 07/01/24 21:20 07/01/24 21:30 07/01/24 21:45 Temperature Pulse Rate 88 85 90 Respiratory Rate Blood Pressure 93/47 L 117/54 L 97/48 L Pulse Oximetry Oxygen Delivery Fraction of Inspired Oxygen 07/01/24 21:50 07/01/24 21:55 07/01/24 21:55 Temperature Pulse Rate 109 H 100 100 Respiratory Rate 22 H Blood Pressure 94/47 L 94/47 L Pulse Oximetry Oxygen Delivery Fraction of Inspired Oxygen 07/01/24 22:00 07/01/24 22:00 07/01/24 22:00 Temperature Pulse Rate 95 95 95 Respiratory Rate 16 Blood Pressure 99/48 L 99/48 L Pulse Oximetry Oxygen Delivery Fraction of Inspired Oxygen 07/01/24 22:00 07/01/24 22:00 07/01/24 22:00 Temperature Pulse Rate 95 94 94 Respiratory Rate 16 16 Blood Pressure 117/59 L Pulse Oximetry 100 Oxygen Delivery Fraction of Inspired Oxygen 07/01/24 22:00 07/01/24 22:10 07/01/24 22:30 Temperature Pulse Rate 95 89 84 Respiratory Rate Blood Pressure 99/48 L 110/52 L 124/60 Pulse Oximetry Oxygen Delivery Fraction of Inspired Oxygen 07/01/24 22:45 07/01/24 22:51 07/01/24 23:10 Temperature Pulse Rate 82 82 80 Respiratory Rate Blood Pressure 121/58 L 132/63 Pulse Oximetry 100 Oxygen Delivery Mechanical Ventilation Fraction of Inspired Oxygen 30 07/02/24 00:00 07/02/24 00:00 07/02/24 00:00 Temperature Pulse Rate 79 79 79 Respiratory Rate 16 Blood Pressure 130/60 130/60 Pulse Oximetry Oxygen Delivery Fraction of Inspired Oxygen 07/02/24 00:00 07/02/24 00:00 07/02/24 00:00 Temperature Pulse Rate 79 79 Respiratory Rate 16 Blood Pressure 130/60 Pulse Oximetry Oxygen Delivery Fraction of Inspired Oxygen 30 07/02/24 00:00 07/02/24 00:00 07/02/24 00:00 Temperature 98.8 F Pulse Rate 78 84 Respiratory Rate 16 Blood Pressure 130/60 Pulse Oximetry 100 100 Oxygen Delivery Mechanical Ventilation Fraction of Inspired Oxygen 30 07/02/24 00:15 07/02/24 00:30 07/02/24 01:40 Temperature Pulse Rate 80 78 77 Respiratory Rate Blood Pressure 121/60 118/58 L 118/58 L Pulse Oximetry Oxygen Delivery Fraction of Inspired Oxygen 07/02/24 01:45 07/02/24 01:55 07/02/24 02:00 Temperature Pulse Rate 82 81 75 Respiratory Rate Blood Pressure 81/44 L 148/83 H Pulse Oximetry 100 Oxygen Delivery Mechanical Ventilation Fraction of Inspired Oxygen 30 07/02/24 02:00 07/02/24 02:00 07/02/24 02:00 Temperature Pulse Rate 71 71 71 Respiratory Rate 16 Blood Pressure 144/70 H 144/70 H Pulse Oximetry Oxygen Delivery Fraction of Inspired Oxygen 07/02/24 02:00 07/02/24 02:00 07/02/24 02:00 Temperature Pulse Rate 71 75 75 Respiratory Rate 16 16 Blood Pressure 142/69 H Pulse Oximetry 100 Oxygen Delivery Fraction of Inspired Oxygen 07/02/24 02:15 07/02/24 03:00 07/02/24 03:15 Temperature Pulse Rate 75 74 75 Respiratory Rate Blood Pressure 122/60 128/63 99/51 L Pulse Oximetry Oxygen Delivery Fraction of Inspired Oxygen 07/02/24 03:53 07/02/24 03:53 07/02/24 04:00 Temperature Pulse Rate 76 76 74 Respiratory Rate 16 16 Blood Pressure 128/63 Pulse Oximetry Oxygen Delivery Fraction of Inspired Oxygen 07/02/24 04:00 07/02/24 04:00 07/02/24 04:00 Temperature Pulse Rate 74 74 74 Respiratory Rate 16 Blood Pressure 128/63 128/63 Pulse Oximetry Oxygen Delivery Fraction of Inspired Oxygen 07/02/24 04:00 07/02/24 04:00 07/02/24 04:00 Temperature Pulse Rate 74 Respiratory Rate 16 Blood Pressure Pulse Oximetry 100 Oxygen Delivery Mechanical Ventilation Fraction of Inspired Oxygen 30 30 07/02/24 04:00 07/02/24 04:00 07/02/24 04:15 Temperature 98.1 F Pulse Rate 74 72 76 Respiratory Rate 16 Blood Pressure 128/63 110/54 L Pulse Oximetry 100 Oxygen Delivery Fraction of Inspired Oxygen 07/02/24 05:08 07/02/24 06:00 07/02/24 06:00 Temperature Pulse Rate 66 72 72 Respiratory Rate Blood Pressure 121/61 121/61 Pulse Oximetry 100 Oxygen Delivery Mechanical Ventilation Fraction of Inspired Oxygen 30 07/02/24 06:00 07/02/24 06:00 07/02/24 06:00 Temperature Pulse Rate 72 72 72 Respiratory Rate 16 16 Blood Pressure 121/61 Pulse Oximetry Oxygen Delivery Fraction of Inspired Oxygen 07/02/24 06:00 07/02/24 06:00 07/02/24 06:17 Temperature Pulse Rate 72 72 68 Respiratory Rate 16 Blood Pressure 121/61 136/68 Pulse Oximetry 100 Oxygen Delivery Fraction of Inspired Oxygen 07/02/24 06:17 07/02/24 07:59 07/02/24 08:00 Temperature 97.4 F L Pulse Rate 68 71 76 Respiratory Rate 16 Blood Pressure 136/68 114/59 L Pulse Oximetry 98 95 Oxygen Delivery Mechanical Ventilation Fraction of Inspired Oxygen 30 07/02/24 08:00 07/02/24 08:00 07/02/24 08:00 Temperature Pulse Rate 76 93 Respiratory Rate 16 Blood Pressure Pulse Oximetry 95 Oxygen Delivery Mechanical Ventilation Fraction of Inspired Oxygen 30 30 07/02/24 08:04 07/02/24 08:04 07/02/24 08:05 Temperature Pulse Rate 76 76 76 Respiratory Rate 16 Blood Pressure 114/59 L 114/59 L Pulse Oximetry Oxygen Delivery Fraction of Inspired Oxygen 07/02/24 08:05 07/02/24 08:05 07/02/24 08:17 Temperature Pulse Rate 76 76 69 Respiratory Rate 16 16 Blood Pressure 114/59 L Pulse Oximetry Oxygen Delivery Fraction of Inspired Oxygen 07/02/24 08:17 07/02/24 08:17 07/02/24 08:17 Temperature Pulse Rate 66 66 75 Respiratory Rate 16 Blood Pressure 74/53 L 77/43 L Pulse Oximetry Oxygen Delivery Fraction of Inspired Oxygen 07/02/24 08:24 07/02/24 08:31 07/02/24 08:35 Temperature Pulse Rate 68 75 77 Respiratory Rate Blood Pressure 177/89 H 175/88 H 167/81 H Pulse Oximetry Oxygen Delivery Fraction of Inspired Oxygen 07/02/24 08:41 07/02/24 08:46 07/02/24 09:00 Temperature Pulse Rate 93 83 75 Respiratory Rate Blood Pressure 134/71 139/69 110/55 L Pulse Oximetry Oxygen Delivery Fraction of Inspired Oxygen 07/02/24 09:15 07/02/24 09:20 07/02/24 09:25 Temperature Pulse Rate 71 70 79 Respiratory Rate Blood Pressure 110/54 L 106/52 L 101/53 L Pulse Oximetry Oxygen Delivery Fraction of Inspired Oxygen 07/02/24 09:42 07/02/24 09:42 07/02/24 09:51 Temperature Pulse Rate 76 73 81 Respiratory Rate Blood Pressure 91/46 L 116/58 L 125/62 Pulse Oximetry Oxygen Delivery Fraction of Inspired Oxygen 07/02/24 09:57 07/02/24 10:00 07/02/24 10:00 Temperature 97.6 F Pulse Rate 74 74 74 Respiratory Rate 16 Blood Pressure 114/55 L Pulse Oximetry 98 100 Oxygen Delivery Mechanical Ventilation Fraction of Inspired Oxygen 30 07/02/24 10:00 07/02/24 10:00 07/02/24 10:00 Temperature Pulse Rate 74 74 74 Respiratory Rate Blood Pressure 114/55 L 114/55 L 114/55 L Pulse Oximetry Oxygen Delivery Fraction of Inspired Oxygen 07/02/24 10:00 07/02/24 10:00 07/02/24 10:54 Temperature Pulse Rate 74 74 69 Respiratory Rate 16 16 Blood Pressure 112/55 L Pulse Oximetry Oxygen Delivery Fraction of Inspired Oxygen Intake/Output Intake/Output: Intake & Output 06/29/24 06/30/24 07/01/24 07/02/24 23:59 23:59 23:59 23:59 Intake Total 2700 4109.0 1835.3 Output Total 750 300 Balance 2700 3359.0 1535.3 Meds/Results Medications: Active Medications Generic Name Dose Route Start Last Admin Trade Name Freq PRN Reason Stop Dose Admin Dextrose 12.5 gm 07/01/24 01:32 Dextrose 50% 25 Gm/50 Ml Syringe IV PUSH PRN PRN Hypoglycemia Protocol Enoxaparin Sodium 40 mg 07/01/24 09:00 07/02/24 08:18 Enoxaparin 40 Mg/0.4 Ml Syringe SUB-Q 40 mg DAILY ROZ Administration Glucagon 1 mg 07/01/24 01:32 Glucagon For Inj 1 Mg Vial IM PRN PRN Hypoglycemia Protocol Glucose 15 gm 07/01/24 01:32 Glucose Oral Gel 15 Gm Of Glucse In 37.5 Gm Tube PO PRN PRN Hypoglycemia Protocol Hydrocortisone Sodium Succinate 100 mg 07/01/24 14:00 07/02/24 05:24 Hydrocortisone Sodium Succinate 100 Mg/2 Ml Vial IV PUSH 100 mg Q8HR ROZ Administration Norepinephrine Bitartrate 8 mg in 250 mls @ 5.625 mls/hr 06/30/24 22:10 07/02/24 10:00 Levophed 8 Mg/D5w 250 Ml IV CONT 3 mcg/min .Q24H ROZ 5.63 mls/hr Titration Protocol 3 MCG/MIN Lactated Ringer's 1,000 mls @ 100 mls/hr 07/01/24 01:15 07/02/24 04:43 Lr - Lactated Ringers Iv IV CONT 100 mls/hr .Q10H ROZ Administration Piperacillin/Tazobactam/Dextrose 3.375 gm in 50 mls @ 100 mls/hr 07/01/24 04:00 07/02/24 10:53 Zosyn 3.375 Gm/Ns 50 Ml IVPB Infused Q6H ROZ Infusion Fentanyl Citrate 2,500 mcg in 250 mls @ 0 mls/hr 07/01/24 01:35 07/02/24 10:00 Fentanyl 2,500 Mcg/Ns 250 Ml IV CONT 0 mcg/hr .Q0M ROZ 0 mls/hr Titration Protocol 0 MCG/HR Midazolam HCl 100 mg in 100 mls @ 0 mls/hr 07/01/24 01:35 07/02/24 10:00 Versed 100 Mg/Ns 100 Ml IV CONT 0 mg/hr .Q0M ROZ 0 mls/hr Titration Protocol 0 MG/HR Dextrose 1,000 mls @ 100 mls/hr 07/01/24 01:32 Dextrose 5% 1,000 Ml IVPB PRN PRN Hypoglycemia Protocol Amiodarone HCl/Dextrose 360 mg in 200 mls @ 16.667 mls/hr 07/01/24 08:00 06/07 08/30 10:00 Nexterone 360 Mg/D5w 200 Ml IV CONT 0.5 mg/min .Q12H ROZ 16.67 mls/hr Infusion 0.5 MG/MIN Vasopressin 100 units/ 100 mls @ 0 mls/hr 07/01/24 03:30 07/02/24 10:54 Dextrose IV CONT 0 units/min .Q0M ROZ 0 mls/hr Titration Protocol 0 UNITS/MIN Sodium Phosphate 20 mm/ 256.6667 mls @ 50 mls/hr 07/02/24 07:11 07/02/24 07:51 Dextrose IVPB 07/02/24 12:18 50 mls/hr ONCE ONE Administration Insulin Aspart 2 - 5 units 07/01/24 06:00 07/02/24 06:29 Insulin Aspart (*Bkc) 100 Units/Ml SUB-Q Not Given Q6HR [facility] Protocol Levothyroxine Sodium 12.5 mcg 07/01/24 06:30 07/02/24 06:15 Levothyroxine Sodium Inj 100 Mcg/5 Ml Vial IV PUSH 12.5 mcg DAILY@0630 [facility] Administration Multi-Ingred Cream/Lotion/Oil/Oint 1 applic 07/01/24 09:00 07/02/24 07:51 Mineral Oil/White Petrolatum Ointment EACH EYE 1 applic Q12HR ROZ Administration Naloxone HCl 0.1 mg 07/01/24 01:15 Naloxone Hcl 0.4 Mg/Ml Vial IV PUSH Q2M PRN Opiate Reversal Ondansetron HCl 4 mg 07/01/24 01:15 Ondansetron Inj 4 Mg/2 Ml Vial IV PUSH Q4H PRN Nausea And Vomiting Pantoprazole Sodium 40 mg 07/01/24 09:00 07/02/24 07:51 Pantoprazole Sodium Iv 40 Mg Vial IV PUSH 40 mg Q12HR ROZ Administration Sodium Chloride 10 ml 07/01/24 06:00 07/02/24 05:23 Central Line Flush IV PUSH 10 ml Q8HR ROZ Administration Sodium Chloride 20 ml 07/01/24 02:34 Central Line Flush IV PUSH PRN PRN after blood draws Radiology Results: ITS Impressions Abdomen/Pelvis CT 06/30/24 20:18 IMPRESSION: 1. Air seen in the wall of the cecum and ascending colon with thickening in the ascending colon. Differential include infection with gas-forming organism versus ischemia versus connective tissue disease. Clinical correlation and further evaluation advised. No free air. Minimal free fluid seen around the liver. 2. Dilated small bowel loops in the distal ileum with transition zone seen in the terminal ileum area. Follow-up advised. 3. Bilateral basal atelectasis with left pleural effusion. 4. Cardiomegaly. 5. Slightly thickened wall of the bladder. Evaluation for cystitis advised Dr. Puckett was notified with the result of the patient at 8:40 PM on June 30, 2024. Chest X-Ray 07/02/24 07:08 Impression: Small left pleural effusion with left basilar atelectasis/edema versus pneumonia. Support tubes, as above. Labs Labs: Laboratory Results - last 24 hr 07/01/24 07/01/24 07/01/24 11:23 17:26 23:57 WBC RBC Hgb Hct MCV MCH MCHC RDW Plt Count MPV PT INR APTT Puncture Site ABG pH ABG pCO2 ABG pO2 ABG PO2/FiO2 Ratio ABG HCO3 ABG O2 Saturation ABG O2 Content ABG Base Excess A-a Gradient Oxyhemoglobin Carboxyhemoglobin Methemoglobin Reduced Hemoglobin Total Hemoglobin O2 Delivery Device O2 Liters/Min Minute Volume Vent Rate Vent Mode FiO2 Tidal Volume PEEP Peak Inspir Pressure Pressure Support Sodium Potassium Chloride Carbon Dioxide Anion Gap BUN Creatinine Estim Creat Clear Calc Estimated GFR Glucose POC Capillary Glucose 93 114 H 174 H Calcium Phosphorus Magnesium Total Bilirubin AST ALT Alkaline Phosphatase Total Protein Albumin 07/02/24 07/02/24 07/02/24 04:53 06:04 07:38 WBC 17.1 H RBC 2.70 L Hgb 8.6 L D Hct 26.8 L MCV 99.3 MCH 31.9 MCHC 32.1 RDW 14.0 Plt Count 101 L MPV 8.8 PT 21.2 H INR 1.8 APTT 46.9 H Puncture Site Not Reportable ABG pH 7.388 ABG pCO2 33.5 L ABG pO2 117.2 H ABG PO2/FiO2 Ratio 3.91 ABG HCO3 19.7 L ABG O2 Saturation 98.3 ABG O2 Content 13.0 L ABG Base Excess -4.6 A-a Gradient 57.3 Oxyhemoglobin 97.5 Carboxyhemoglobin 0.8 Methemoglobin 0.3 Reduced Hemoglobin 1.4 Total Hemoglobin 9.3 L O2 Delivery Device Ventilator O2 Liters/Min Not Reportable Minute Volume Not Reportable Vent Rate 16 Vent Mode Cmv FiO2 30 Tidal Volume 450 PEEP 8 Peak Inspir Pressure Not Reportable Pressure Support Not Reportable Sodium 130 L Potassium 4.1 Chloride 98 Carbon Dioxide 25 Anion Gap 7 BUN 13 Creatinine 0.63 L Estim Creat Clear Calc 90 Estimated GFR > 60 Glucose 161 H POC Capillary Glucose Calcium 7.8 L Phosphorus 2.7 Magnesium 2.1 Total Bilirubin 1.5 H AST 13 L ALT 9 Alkaline Phosphatase 33 L Total Protein 6.0 L Albumin 3.7
[2024-07-02 11:56] LABS: Glucose Point of Care 165 mg/dl (65-105)
[2024-07-02] MEDS: NOREPINEPHRINE 8 MG/D5W 250 ML 8 MG/250 ML BAG 5.63 MG IV CONT (12:03)
[2024-07-02] MEDS: dexmedeTOMIDine 400 MCG/100 ML 400 MCG/100 ML BAG 5.59 MCG IV CONT (16:36)
[2024-07-02 18:19] LABS: Glucose Point of Care 130 mg/dl (65-105)
[2024-07-03] VITALS (45 sets, daily range): BP systolic 83–145; BP diastolic 48–91; PULSE 57–82; RESP 9–23; TEMP 35.9–36.9; O2SAT 94–100
[2024-07-03] MEDS: dexmedeTOMIDine 400 MCG/100 ML 400 MCG/100 ML BAG 11.18 MCG IV CONT
[2024-07-03 00:30] LABS: Glucose Point of Care 150 mg/dl (65-105)
[2024-07-03] MEDS: LACTATED RINGERS 1,000 ML 100 ML IV CONT (01:30)
[2024-07-03] MEDS: PIPERACILLN/TAZ 3.375GM/NS50ML 3.375 GM/50 ML BAG IVPB ×4 (04:49→21:38)
[2024-07-03 05:08] LABS: Alveolar/Arterial O2 Gradient 41.2 mmHg; Base Excess ABG -0.7 mEq/l (+/-2.0); Carboxyhemoglobin 0.1 % THb (0-2.0); Fractional Inspired Oxygen 25 %; HCO3 ABG 22.8 mEq/l (22.0-26.0); Methemoglobin ABG 0.3 %THb (0-1.5); Oxygen Content ABG 14.5 %vol (16.0-22.0); Oxygen Saturation ABG 97.7 % (95.0-100.0); Oxyhemoglobin 97.1 % THb (90.0-100.0); PCO2 ABG 33.7 mmHg (35.0-45.0); PO2 FiO2 Ratio Arterial Blood 3.88 %; Reduced Hemoglobin 2.5 %THb (0-5.0); Total Hemoglobin 10.5 g/dL (12.0-18.0); pH ABG 7.449 (7.350-7.450)
[2024-07-03 05:11] LABS: Arterial Blood Gas Vent Mode CMV; Arterial Blood Gas Ventilator rate 16 /MIN; Device VENTILATOR; Site Drawn ARTLINE
[2024-07-03 05:12] LABS: Arterial Blood Gas PEEP 5 cmH2O; Arterial Blood Gas Tidal Volume 450 ml
[2024-07-03] MEDS: CENTRAL LINE FLUSH 10 ML IV PUSH ×3 (05:28→21:38)
[2024-07-03] MEDS: HYDROCORTISONE SODIUM SUCCINATE 100 MG/2 ML VIAL IV PUSH (05:28)
[2024-07-03] MEDS: LEVOTHYROXINE SODIUM INJ 100 MCG/5 ML VIAL 12.5 MCG IV PUSH (05:31)
[2024-07-03 06:16] LABS: Basophils Percent Auto 0.1 % (0.2-1.2); Hematocrit 30.6 % (42.0-52.0); Hemoglobin 9.7 g/dL (14.0-18.0); Immature Granulocyte Absolute 0.22 K/mm3 (0.00-0.031); Immature Granulocyte Percent A 1.3 % (0-0.5); Lymphocytes Absolute Auto 0.55 K/mm3 (0.9-3.2); Lymphocytes Percent Auto 3.1 % (18.3-44.2); Mean Corpuscular HGB Conc 31.7 g/dl (32-36); Mean Corpuscular Hemoglobin 31.2 pg (26-34); Mean Corpuscular Volume 98.4 fl (80-100); Monocytes Absolute Auto 0.7 K/mm3 (0.1-0.6); Monocytes Percent Auto 3.8 % (2.6-8.5); Neutrophils Absolute Auto 16.2 K/mm3 (1.3-6.7); Neutrophils Percent Auto 91.7 % (45.5-73.1); Platelet Count Result 122 k/mm3 (150-375); Red Blood Count 3.11 M/mm3 (4.6-6.20); Red Cell Distribution Width 13.7 % (11.5-14.5); White Blood Count 17.6 K/mm3 (4.5-10.0)
[2024-07-03 06:26] LABS: Lactic Acid Reflex 1.1 mmol/L (0.7-2.0)
[2024-07-03 06:31] LABS: Alanine Aminotransferase 7 U/L (6-50); Albumin Level 3.3 g/dL (3.5-5.1); Alkaline Phosphatase 40 U/L (38-126); Anion Gap 8 mmol/L (4-12); Aspartate Amino Transferase 14 U/L (17-59); Bilirubin,Total 0.9 mg/dL (0.2-1.3); Blood Urea Nitrogen 17 mg/dL (9-20); Calcium 7.8 mg/dL (8.4-10.2); Carbon Dioxide 26 mmol/L (22-30); Chloride 100 mmol/L (98-107); Estimated CRCL calculation 84 ml/min; Estimated Glomerular Filt Rate > 60; Glucose 144 mg/dL (65-110); Magnesium 2.4 mg/dL (1.6-2.3); Phosphorus 2.3 mg/dL (2.5-4.5); Potassium 3.2 mmol/L (3.4-5.0); Sodium 134 mmol/L (137-145)
[2024-07-03] MEDS: AMIODARONE 360 MG/D5W 200 ML 360 MG/200 ML BAG 16.67 MG IV CONT (07:05)
[2024-07-03] MEDS: ALBUMIN HUMAN 25% 25 GM/100 ML 100 ML IVPB (07:58)
[2024-07-03] MEDS: MINERAL OIL/WHITE PETROLATUM OINTMENT 1 APPLIC EACH EYE (08:08)
[2024-07-03] MEDS: PANTOPRAZOLE SODIUM IV 40 MG VIAL IV PUSH ×2 (08:08→21:36)
[2024-07-03] MEDS: ENOXAPARIN 40 MG/0.4 ML SYRINGE SUB-Q (08:08)
[2024-07-03] MEDS: KCL 40 MEQ/WATER 100 ML 100 ML 25 ML IVPB (08:08)
[2024-07-03] MEDS: FUROSEMIDE INJ 40 MG/4 ML VIAL 20 MG IV PUSH (08:19)
--- NOTE | 2024-07-03 08:39 | P.PNINT_ITS ---
Progress Note: A&P Assessment and Plan (1) Septic shock: Code(s): A41.9 - Sepsis, unspecified organism; R65.21 - Severe sepsis with septic shock Status: Acute Assessment and Plan: Septic shock secondary ischemic bowel but no perforation status post ex lap, right hemicolectomy with ileocolic anastomosis (07/01) Patient has received more than 4 L of crystalloids. I will decrease IV fluid rate to 100 mL/hour Received 5% % albumin bolus and 25% albumin to minimize third-spacing Continue Levophed and vasopressin infusion to maintain MAP > 65 mmHg or SBP > 100 mmHg for adequate end organs perfusion Start weaning stress dose steroids 07/01: blood culture results are negative x2 07/01: urine cultures negative -Continue empiric Zosyn (07/01) 07/01/2024: Echocardiogram Summary 1. The left ventricle is normal in size and systolic function. The left ventricular ejection fraction is visually estimated to be 60-65%. Paradoxical septum motion abnormality suggestive of bundle-branch block. 2. The right ventricle is poorly visualized however does appear mildly dilated with mildly reduced systolic function. 3. The valves are poorly visualized in this study however there does not appear to be any severe valvular abnormalities. (2) Respiratory failure: Qualifiers: Chronicity: acute Respiratory failure complication: unspecified whether with hypoxia or hypercapnia Qualified Code(s): J96.00 - Acute respiratory failure, unspecified whether with hypoxia or hypercapnia Code(s): J96.90 - Respiratory failure, unspecified, unspecified whether with hypoxia or hypercapnia Status: Acute Assessment and Plan: Acute Respiratory failure secondary to septic shock, peritonitis, bowel ischemia , general anaesthesia Patient now intubated and on CMV mode of ventilation, Chest x-ray reviewed and ET tube, ventilator adjusted Continue full mechanical ventilation sup Continue mechanical ventilation until hemodynamics improved and then and will evaluate for weaning Low tidal volume ventilation strategy to prevent volutrauma Off sedation and Precedex infusion -will diurese patient, and will place on SBT to evaluate for extubation (3) Chronic atrial fibrillation with RVR: Code(s): I48.20 - Chronic atrial fibrillation, unspecified Status: Acute Assessment and Plan: Patient presented with AFib RVR, was given amiodarone bolus and started on amiodarone infusion -currently anticoagulation on hold -will DC amiodarone infusion as patient is bradycardic (4) Chronic anticoagulation: Code(s): Z79.01 - alf (current) use of anticoagulants Status: Acute Assessment and Plan: Patient was on Eliquis and received FFP for the surgery. Continue to hold anticoagulation at this time due to high risk of bleeding -will discuss with surgery regarding restarting full anticoagulation (5) Acute ischemia of large intestine: Code(s): K55.039 - Acute (reversible) ischemia of large intestine, extent unspecified Status: Acute Assessment and Plan: Status post exploratory laparotomy and right hemicolectomy NPO Management per General surgery (6) Peritonitis (acute) generalized: Code(s): K65.0 - Generalized (acute) peritonitis Status: Acute Assessment and Plan: See above (7) Electrolyte imbalance: Code(s): E87.8 - Other disorders of electrolyte and fluid balance, not elsewhere classified Status: Acute Assessment and Plan: Will replace potassium and phosphorus Plan DVT prophylaxis -Lovenox Stress ulcer prophylaxis -PPI Nutrition - NPO Code Status -patient is DNR Total Critical Care Time - 32 minutes Discussed with patient's and son at bedside and updated them with patient's condition and plan of care. I answered all questions Due to a high probability of clinically significant, life threatening deterioration, the patient required my highest level of preparedness to intervene emergently and I personally spent this critical care time directly and personally managing the patient. This critical care time included obtaining a history; examining the patient; pulse oximetry; ordering and review of studies; arranging urgent treatment with development of a management plan; evaluation of patient's response to treatment; frequent reassessment; and discussions with other providers. It was exclusive of separately billable procedures and treating other patients and teaching time. Please see Assessment and Plan section and the rest of the note for further information on patient assessment and treatment Subjective Date/time seen: 07/03/24 08:39 Interval history: Reason for consult: Acute respiratory failure, acute bowel ischemia septic shock status post ex lap and right hemicolectomy with ileocolonic anastomosis on 07/01/2024 07/03/2024: Patient seen and examined the ICU, remains intubated on CMV mode of ventilation, peep of 5, 25% FiO2. Off Precedex infusion since this morning, does open his eyes, follows simple commands in all extremities. Urine output is much improved since yesterday, off all pressors. Patient is afebrile and hemodynamically stable. On amiodarone infusion, bradycardic, was the bedside RN to stop the since amiodarone infusion Review of Systems Review of Systems: ROS unobtainable: Yes unobtainable due to endotracheal tube, unobtainable due to medical condition and unobtainable due to mental status Exam Narrative: General: Pt is intubated and on mechanical ventilation HEENT: Pupils are reactive, anisocoria - left surgical pupil larger than the right. Sclera is clear, ETT in Lungs/Chest: Trachea central Coarse BS B/L, few bibasilar crackles Cardiac: Irregularly irregular, bradycardia. Abdomen: Soft, hypoactive bowel sounds, tenderness to palpation as he grimaces, midline incision covered under dressing. Scrotal swelling noted Extremities: Bilateral lower extremity edema, decreased pedal pulses : Sneed in place Neurologic: Patient is intubated, not on any sedation, opens his eyes, follows simple commands in all extremities Psych: Unable to assess at this time Objective Data Vital Signs Vital Signs: Vital Signs - 24 hr 07/02/24 08:41 07/02/24 08:46 07/02/24 09:00 Temperature Pulse Rate 93 83 75 Respiratory Rate Blood Pressure 134/71 139/69 110/55 L Pulse Oximetry Oxygen Delivery Fraction of Inspired Oxygen 07/02/24 09:15 07/02/24 09:20 07/02/24 09:25 Temperature Pulse Rate 71 70 79 Respiratory Rate Blood Pressure 110/54 L 106/52 L 101/53 L Pulse Oximetry Oxygen Delivery Fraction of Inspired Oxygen 07/02/24 09:42 07/02/24 09:42 07/02/24 09:51 Temperature Pulse Rate 76 73 81 Respiratory Rate Blood Pressure 91/46 L 116/58 L 125/62 Pulse Oximetry Oxygen Delivery Fraction of Inspired Oxygen 07/02/24 09:57 07/02/24 10:00 07/02/24 10:00 Temperature 97.6 F Pulse Rate 74 74 74 Respiratory Rate 16 Blood Pressure 114/55 L Pulse Oximetry 98 100 Oxygen Delivery Mechanical Ventilation Fraction of Inspired Oxygen 30 07/02/24 10:00 07/02/24 10:00 07/02/24 10:00 Temperature Pulse Rate 74 74 74 Respiratory Rate Blood Pressure 114/55 L 114/55 L 114/55 L Pulse Oximetry Oxygen Delivery Fraction of Inspired Oxygen 07/02/24 10:00 07/02/24 10:00 07/02/24 10:54 Temperature Pulse Rate 74 74 69 Respiratory Rate 16 16 Blood Pressure 112/55 L Pulse Oximetry Oxygen Delivery Fraction of Inspired Oxygen 07/02/24 12:00 07/02/24 12:00 07/02/24 12:00 Temperature 98.2 F Pulse Rate 71 71 Respiratory Rate 16 16 Blood Pressure 120/59 L Pulse Oximetry 100 100 Oxygen Delivery Mechanical Ventilation Fraction of Inspired Oxygen 30 30 07/02/24 12:00 07/02/24 12:02 07/02/24 12:03 Temperature Pulse Rate 74 75 73 Respiratory Rate Blood Pressure 120/59 L 120/59 L Pulse Oximetry Oxygen Delivery Fraction of Inspired Oxygen 07/02/24 12:03 07/02/24 12:03 07/02/24 12:03 Temperature Pulse Rate 71 71 89 Respiratory Rate 16 16 Blood Pressure 105/52 L Pulse Oximetry Oxygen Delivery Fraction of Inspired Oxygen 07/02/24 12:04 07/02/24 13:45 07/02/24 14:00 Temperature Pulse Rate 71 80 78 Respiratory Rate 13 Blood Pressure 120/59 L 97/49 L Pulse Oximetry 100 100 Oxygen Delivery Mechanical Ventilation Fraction of Inspired Oxygen 30 07/02/24 14:00 07/02/24 14:00 07/02/24 14:00 Temperature Pulse Rate 80 82 89 Respiratory Rate 16 16 Blood Pressure Pulse Oximetry Oxygen Delivery Fraction of Inspired Oxygen 07/02/24 14:00 07/02/24 14:00 07/02/24 14:00 Temperature Pulse Rate 89 85 84 Respiratory Rate Blood Pressure 110/56 L 105/74 112/59 L Pulse Oximetry Oxygen Delivery Fraction of Inspired Oxygen 07/02/24 16:00 07/02/24 16:00 07/02/24 16:00 Temperature Pulse Rate 88 89 103 H Respiratory Rate 16 16 Blood Pressure 90/46 L Pulse Oximetry Oxygen Delivery Fraction of Inspired Oxygen 07/02/24 16:00 07/02/24 16:00 07/02/24 16:00 Temperature Pulse Rate 103 H 88 Respiratory Rate Blood Pressure 106/52 L Pulse Oximetry Oxygen Delivery Fraction of Inspired Oxygen 30 07/02/24 16:00 07/02/24 16:00 07/02/24 16:00 Temperature 98.6 F Pulse Rate 90 81 84 Respiratory Rate 16 16 Blood Pressure 102/74 109/58 L Pulse Oximetry 99 100 Oxygen Delivery Mechanical Ventilation Fraction of Inspired Oxygen 30 07/02/24 16:00 07/02/24 16:15 07/02/24 16:23 Temperature Pulse Rate 89 98 93 Respiratory Rate Blood Pressure 110/58 L 92/46 L Pulse Oximetry 100 Oxygen Delivery Mechanical Ventilation Fraction of Inspired Oxygen 30 07/02/24 16:31 07/02/24 16:36 07/02/24 18:00 Temperature Pulse Rate 106 H 80 Respiratory Rate 16 Blood Pressure Pulse Oximetry Oxygen Delivery Mechanical Ventilation Fraction of Inspired Oxygen 07/02/24 18:00 07/02/24 18:00 07/02/24 18:00 Temperature Pulse Rate 86 82 82 Respiratory Rate 18 Blood Pressure 119/61 119/62 Pulse Oximetry 100 Oxygen Delivery Fraction of Inspired Oxygen 07/02/24 18:00 07/02/24 18:00 07/02/24 18:00 Temperature Pulse Rate 105 H 103 H 102 H Respiratory Rate 22 H 20 20 Blood Pressure Pulse Oximetry Oxygen Delivery Fraction of Inspired Oxygen 07/02/24 18:00 07/02/24 19:30 07/02/24 19:30 Temperature Pulse Rate 102 H 80 80 Respiratory Rate Blood Pressure 118/61 131/67 131/67 Pulse Oximetry Oxygen Delivery Fraction of Inspired Oxygen 07/02/24 20:00 07/02/24 20:00 07/02/24 20:00 Temperature Pulse Rate 79 79 79 Respiratory Rate 16 Blood Pressure 133/68 133/68 Pulse Oximetry Oxygen Delivery Fraction of Inspired Oxygen 07/02/24 20:00 07/02/24 20:00 07/02/24 20:00 Temperature Pulse Rate 79 79 79 Respiratory Rate 16 16 Blood Pressure 133/68 Pulse Oximetry Oxygen Delivery Fraction of Inspired Oxygen 07/02/24 20:00 07/02/24 20:00 07/02/24 20:00 Temperature 99.0 F Pulse Rate 79 Respiratory Rate 16 Blood Pressure 133/68 Pulse Oximetry 100 100 Oxygen Delivery Mechanical Ventilation Fraction of Inspired Oxygen 07/02/24 20:00 07/02/24 20:15 07/02/24 20:15 Temperature Pulse Rate 80 78 76 Respiratory Rate Blood Pressure 135/68 Pulse Oximetry 100 Oxygen Delivery Mechanical Ventilation Fraction of Inspired Oxygen 07/02/24 22:00 07/02/24 22:00 07/02/24 22:00 Temperature Pulse Rate 76 76 76 Respiratory Rate 16 16 Blood Pressure 125/65 125/65 Pulse Oximetry 100 Oxygen Delivery Fraction of Inspired Oxygen 07/02/24 22:00 07/02/24 22:00 07/02/24 22:00 Temperature Pulse Rate 76 76 76 Respiratory Rate 16 16 Blood Pressure 125/65 Pulse Oximetry Oxygen Delivery Fraction of Inspired Oxygen 07/02/24 22:00 07/02/24 22:00 07/02/24 22:40 Temperature Pulse Rate 76 76 74 Respiratory Rate Blood Pressure 125/65 135/70 Pulse Oximetry Oxygen Delivery Fraction of Inspired Oxygen 07/02/24 22:55 07/02/24 23:10 07/03/24 00:00 Temperature 98.0 F Pulse Rate 73 73 70 Respiratory Rate 16 Blood Pressure 114/61 128/91 H Pulse Oximetry 100 100 Oxygen Delivery Mechanical Ventilation Fraction of Inspired Oxygen 07/03/24 00:00 07/03/24 00:00 07/03/24 00:00 Temperature Pulse Rate 70 70 Respiratory Rate 16 16 Blood Pressure Pulse Oximetry Oxygen Delivery Fraction of Inspired Oxygen 07/03/24 00:00 07/03/24 00:00 07/03/24 00:00 Temperature Pulse Rate 70 70 70 Respiratory Rate 16 Blood Pressure 126/69 126/69 Pulse Oximetry Oxygen Delivery Fraction of Inspired Oxygen 07/03/24 00:00 07/03/24 00:00 07/03/24 00:00 Temperature Pulse Rate 70 70 Respiratory Rate 16 Blood Pressure 126/69 Pulse Oximetry 100 Oxygen Delivery Mechanical Ventilation Fraction of Inspired Oxygen 07/03/24 00:00 07/03/24 00:15 07/03/24 00:40 Temperature Pulse Rate 71 71 62 Respiratory Rate Blood Pressure 127/70 93/53 L Pulse Oximetry Oxygen Delivery Fraction of Inspired Oxygen 07/03/24 00:55 07/03/24 02:00 07/03/24 02:00 Temperature Pulse Rate 66 70 70 Respiratory Rate Blood Pressure 123/68 135/74 135/74 Pulse Oximetry Oxygen Delivery Fraction of Inspired Oxygen 07/03/24 02:00 07/03/24 02:00 07/03/24 02:00 Temperature Pulse Rate 70 70 70 Respiratory Rate 16 16 16 Blood Pressure Pulse Oximetry Oxygen Delivery Fraction of Inspired Oxygen 07/03/24 02:00 07/03/24 02:00 07/03/24 02:00 Temperature Pulse Rate 70 70 70 Respiratory Rate 16 Blood Pressure 135/74 137/74 Pulse Oximetry 100 Oxygen Delivery Fraction of Inspired Oxygen 07/03/24 02:53 07/03/24 03:35 07/03/24 04:00 Temperature Pulse Rate 72 72 69 Respiratory Rate 23 H Blood Pressure 137/78 Pulse Oximetry 100 Oxygen Delivery Mechanical Ventilation Fraction of Inspired Oxygen 25 07/03/24 04:00 07/03/24 04:00 07/03/24 04:00 Temperature Pulse Rate 69 69 69 Respiratory Rate 16 16 Blood Pressure 137/78 Pulse Oximetry Oxygen Delivery Fraction of Inspired Oxygen 07/03/24 04:00 07/03/24 04:00 07/03/24 04:00 Temperature Pulse Rate 69 69 Respiratory Rate 16 Blood Pressure 137/78 Pulse Oximetry Oxygen Delivery Fraction of Inspired Oxygen 25 07/03/24 04:00 07/03/24 04:00 07/03/24 04:00 Temperature 98.4 F Pulse Rate 69 70 Respiratory Rate 16 Blood Pressure 137/78 Pulse Oximetry 94 94 Oxygen Delivery Mechanical Ventilation Fraction of Inspired Oxygen 07/03/24 04:30 07/03/24 04:30 07/03/24 04:45 Temperature Pulse Rate 70 68 69 Respiratory Rate 16 Blood Pressure 140/80 138/77 Pulse Oximetry Oxygen Delivery Fraction of Inspired Oxygen 07/03/24 04:55 07/03/24 05:00 07/03/24 05:25 Temperature Pulse Rate 71 70 64 Respiratory Rate 16 Blood Pressure 83/49 L Pulse Oximetry 100 Oxygen Delivery Mechanical Ventilation Fraction of Inspired Oxygen 07/03/24 05:45 07/03/24 06:00 07/03/24 06:00 Temperature Pulse Rate 67 68 68 Respiratory Rate 16 Blood Pressure 138/77 145/81 H Pulse Oximetry 100 Oxygen Delivery Fraction of Inspired Oxygen 07/03/24 06:00 07/03/24 06:00 07/03/24 06:00 Temperature Pulse Rate 68 68 68 Respiratory Rate 16 Blood Pressure 145/81 H 145/81 H Pulse Oximetry Oxygen Delivery Fraction of Inspired Oxygen 07/03/24 06:00 07/03/24 06:00 07/03/24 06:00 Temperature Pulse Rate 70 68 68 Respiratory Rate 16 16 Blood Pressure 145/81 H Pulse Oximetry Oxygen Delivery Fraction of Inspired Oxygen 07/03/24 07:05 07/03/24 07:05 07/03/24 07:06 Temperature Pulse Rate 66 66 66 Respiratory Rate Blood Pressure 142/77 H 142/77 H 142/77 H Pulse Oximetry Oxygen Delivery Fraction of Inspired Oxygen 07/03/24 07:09 07/03/24 07:45 07/03/24 07:56 Temperature Pulse Rate 72 59 L 59 L Respiratory Rate 16 16 Blood Pressure 94/56 L Pulse Oximetry Oxygen Delivery Fraction of Inspired Oxygen 07/03/24 08:00 07/03/24 08:06 Temperature 97.4 F L Pulse Rate 62 59 L Respiratory Rate 16 Blood Pressure 98/73 L Pulse Oximetry 99 100 Oxygen Delivery Mechanical Ventilation Fraction of Inspired Oxygen 25 Intake/Output Intake/Output: Intake & Output 06/30/24 07/01/24 07/02/24 07/03/24 23:59 23:59 23:59 23:59 Intake Total 2700 4109.0 3221.2 2083.9 Output Total 162 143 2762 Balance 2700 3359.0 2421.2 933.9 Meds/Results Medications: Active Medications Generic Name Dose Route Start Last Admin Trade Name Freq PRN Reason Stop Dose Admin Dextrose 12.5 gm 07/01/24 01:32 Dextrose 50% 25 Gm/50 Ml Syringe IV PUSH PRN PRN Hypoglycemia Protocol Enoxaparin Sodium 40 mg 07/01/24 09:00 07/03/24 08:08 Enoxaparin 40 Mg/0.4 Ml Syringe SUB-Q 40 mg DAILY ROZ Administration Furosemide 20 mg 07/03/24 09:15 07/03/24 08:19 Furosemide Inj 40 Mg/4 Ml Vial IV PUSH 07/03/24 09:16 20 mg ONCE ONE Administration Glucagon 1 mg 07/01/24 01:32 Glucagon For Inj 1 Mg Vial IM PRN PRN Hypoglycemia Protocol Glucose 15 gm 07/01/24 01:32 Glucose Oral Gel 15 Gm Of Glucse In 37.5 Gm Tube PO PRN PRN Hypoglycemia Protocol Hydrocortisone Sodium Succinate 100 mg 07/01/24 14:00 07/03/24 05:28 Hydrocortisone Sodium Succinate 100 Mg/2 Ml Vial IV PUSH 100 mg Q8HR ROZ Administration Norepinephrine Bitartrate 8 mg in 250 mls @ 0 mls/hr 06/30/24 22:10 07/03/24 07:06 Levophed 8 Mg/D5w 250 Ml IV CONT 0 mcg/min .Q0M ROZ 0 mls/hr Titration Protocol Lactated Ringer's 1,000 mls @ 100 mls/hr 07/01/24 01:15 07/03/24 07:57 Lr - Lactated Ringers Iv IV CONT 0 mls/hr .Q10H ROZ Infusion Piperacillin/Tazobactam/Dextrose 3.375 gm in 50 mls @ 100 mls/hr 07/01/24 04:00 07/03/24 05:19 Zosyn 3.375 Gm/Ns 50 Ml IVPB Infused Q6H ROZ Infusion Fentanyl Citrate 2,500 mcg in 250 mls @ 0 mls/hr 07/01/24 01:35 07/03/24 06:00 Fentanyl 2,500 Mcg/Ns 250 Ml IV CONT 0 mcg/hr .Q0M ROZ 0 mls/hr Titration Protocol 0 MCG/HR Midazolam HCl 100 mg in 100 mls @ 0 mls/hr 07/01/24 01:35 07/03/24 06:00 Versed 100 Mg/Ns 100 Ml IV CONT 0 mg/hr .Q0M ROZ 0 mls/hr Titration Protocol 0 MG/HR Dextrose 1,000 mls @ 100 mls/hr 07/01/24 01:32 Dextrose 5% 1,000 Ml IVPB PRN PRN Hypoglycemia Protocol Amiodarone HCl/Dextrose 360 mg in 200 mls @ 0 mls/hr 07/01/24 08:00 07/03/24 07:56 Nexterone 360 Mg/D5w 200 Ml IV CONT 0 mg/min .Q0M ROZ 0 mls/hr Infusion Dexmedetomidine HCl 400 mcg in 100 mls @ 0 mls/hr 07/02/24 16:30 07/03/24 07:45 Precedex 400 Mcg/100 Ml IV CONT 0 mcg/kg/hr .Q0M ROZ 0 mls/hr Titration Protocol Potassium Chloride 100 mls @ 25 mls/hr 07/03/24 07:45 07/03/24 08:08 Kcl 40 Meq/Water 100 Ml IVPB 07/03/24 11:44 25 mls/hr ONCE ONE Administration Albumin Human 100 mls @ 60 mls/hr 07/03/24 07:27 07/03/24 08:18 Albutein IVPB 07/03/24 09:06 Infused ONCE ONE Infusion Potassium Phosphate 20 mmol/ 256.6667 mls @ 64.167 mls/hr 07/03/24 12:00 Sodium Chloride IVPB 07/03/24 15:59 ONCE ONE Insulin Aspart 2 - 5 units 07/01/24 06:00 07/03/24 06:41 Insulin Aspart (*Bkc) 100 Units/Ml SUB-Q Not Given Q6HR [facility] Protocol Levothyroxine Sodium 12.5 mcg 07/01/24 06:30 07/03/24 05:31 Levothyroxine Sodium Inj 100 Mcg/5 Ml Vial IV PUSH 12.5 mcg DAILY@0630 ROZ Administration Multi-Ingred Cream/Lotion/Oil/Oint 1 applic 07/01/24 09:00 07/03/24 08:08 Mineral Oil/White Petrolatum Ointment EACH EYE 1 applic Q12HR ROZ Administration Naloxone HCl 0.1 mg 07/01/24 01:15 Naloxone Hcl 0.4 Mg/Ml Vial IV PUSH Q2M PRN Opiate Reversal Ondansetron HCl 4 mg 07/01/24 01:15 Ondansetron Inj 4 Mg/2 Ml Vial IV PUSH Q4H PRN Nausea And Vomiting Pantoprazole Sodium 40 mg 07/01/24 09:00 07/03/24 08:08 Pantoprazole Sodium Iv 40 Mg Vial IV PUSH 40 mg Q12HR ROZ Administration Sodium Chloride 10 ml 07/01/24 06:00 07/03/24 05:28 Central Line Flush IV PUSH 10 ml Q8HR ROZ Administration Sodium Chloride 20 ml 07/01/24 02:34 Central Line Flush IV PUSH PRN PRN after blood draws Radiology Results: ITS Impressions Abdomen/Pelvis CT 06/30/24 20:18 IMPRESSION: 1. Air seen in the wall of the cecum and ascending colon with thickening in the ascending colon. Differential include infection with gas-forming organism versus ischemia versus connective tissue disease. Clinical correlation and further evaluation advised. No free air. Minimal free fluid seen around the liver. 2. Dilated small bowel loops in the distal ileum with transition zone seen in the terminal ileum area. Follow-up advised. 3. Bilateral basal atelectasis with left pleural effusion. 4. Cardiomegaly. 5. Slightly thickened wall of the bladder. Evaluation for cystitis advised Dr. Puckett was notified with the result of the patient at 8:40 PM on June 30, 2024. Chest X-Ray 07/03/24 06:44 Impression: Mild central congestive change and probable partial left lower lobe atelectasis. Support tubes, as above. Labs Labs: Laboratory Results - last 24 hr 07/02/24 07/02/24 07/03/24 11:46 18:17 00:16 WBC RBC Hgb Hct MCV MCH MCHC RDW Plt Count MPV Immature Gran % (Auto) Neut % (Auto) Lymph % (Auto) Sunflower % (Auto) Eos % (Auto) Baso % (Auto) Lymph # (Auto) Sunflower # (Auto) Eos # (Auto) Baso # (Auto) Abs Immat Gran (auto) Absolute Neuts (auto) Absolute Nucleated RBC Nucleated RBC % Puncture Site ABG pH ABG pCO2 ABG pO2 ABG PO2/FiO2 Ratio ABG HCO3 ABG O2 Saturation ABG O2 Content ABG Base Excess A-a Gradient Oxyhemoglobin Carboxyhemoglobin Methemoglobin Reduced Hemoglobin Total Hemoglobin O2 Delivery Device O2 Liters/Min Minute Volume Vent Rate Vent Mode FiO2 Tidal Volume PEEP Peak Inspir Pressure Pressure Support Sodium Potassium Chloride Carbon Dioxide Anion Gap BUN Creatinine Estim Creat Clear Calc Estimated GFR Glucose POC Capillary Glucose 165 H 130 H 150 H Lactic Acid Calcium Phosphorus Magnesium Total Bilirubin AST ALT Alkaline Phosphatase Total Protein Albumin 07/03/24 07/03/24 04:53 06:04 WBC 17.6 H RBC 3.11 L Hgb 9.7 L Hct 30.6 L MCV 98.4 MCH 31.2 MCHC 31.7 L RDW 13.7 Plt Count 122 L MPV 9.0 Immature Gran % (Auto) 1.3 H Neut % (Auto) 91.7 H Lymph % (Auto) 3.1 L Sunflower % (Auto) 3.8 Eos % (Auto) 0.0 Baso % (Auto) 0.1 L Lymph # (Auto) 0.55 L Sunflower # (Auto) 0.7 H Eos # (Auto) 0.0 Baso # (Auto) 0.0 Abs Immat Gran (auto) 0.22 H Absolute Neuts (auto) 16.2 H Absolute Nucleated RBC 0.000 Nucleated RBC % 0.0 Puncture Site Artline ABG pH 7.449 ABG pCO2 33.7 L ABG pO2 97.0 ABG PO2/FiO2 Ratio 3.88 ABG HCO3 22.8 ABG O2 Saturation 97.7 ABG O2 Content 14.5 L ABG Base Excess -0.7 A-a Gradient 41.2 Oxyhemoglobin 97.1 Carboxyhemoglobin 0.1 Methemoglobin 0.3 Reduced Hemoglobin 2.5 Total Hemoglobin 10.5 L O2 Delivery Device Ventilator O2 Liters/Min Not Reportable Minute Volume Not Reportable Vent Rate 16 Vent Mode Cmv FiO2 25 Tidal Volume 450 PEEP 5 Peak Inspir Pressure Not Reportable Pressure Support Not Reportable Sodium 134 L Potassium 3.2 L Chloride 100 Carbon Dioxide 26 Anion Gap 8 BUN 17 Creatinine 0.64 L Estim Creat Clear Calc 84 Estimated GFR > 60 Glucose 144 H POC Capillary Glucose Lactic Acid 1.1 Calcium 7.8 L Phosphorus 2.3 L Magnesium 2.4 H Total Bilirubin 0.9 AST 14 L ALT 7 Alkaline Phosphatase 40 Total Protein 6.0 L Albumin 3.3 L Quality VTE Prophylaxis VTE prophylaxis: pharmacologic ordered
[2024-07-03 11:54] LABS: Glucose Point of Care 126 mg/dl (65-105)
[2024-07-03] MEDS: POTASSIUM PHOS,M-BASIC-D-BASIC 20 MMOL in SODIUM CHLORIDE 0.9% IV 250 ML 64.17 MMOL IVPB (11:54)
--- NOTE | 2024-07-03 14:07 | PCFNICU ---
ICU Rounding Note: Pt current nutrition is NPO. Last recorded weight is 101.3 kg. Bowel Motility: Last reported BM 06/30 Labs Reviewed: Mg 2.4, Cr 0.64, Glu 144, Alb 3.3, Na 134 Meds Noted: Lovenox, Protonix Skin: WNL Additional Notes: Patient remains NPO. Surgery to see patient regarding diet orders. Right hemicolectomy 07/01. If TPN starts would recommend Clinimix E 06/20 at 40 ml/hr with 250 ml of 20% Lipid Emulsion. Following daily in ICU rounds. Will monitor weight, labs, skin, diet orders, meds every Monday and Monday.
--- NOTE | 2024-07-03 15:24 | PM.PNGS ---
Progress Note: A&P Assessment and Plan (1) Acute ischemia of large intestine: Code(s): K55.039 - Acute (reversible) ischemia of large intestine, extent unspecified Status: Acute Assessment and Plan: Continue NG tube decompression, bowel rest, and IV fluids while awaiting return of bowel function. Wean and extubate per Cricket Coach (2) Peritonitis (acute) generalized: Code(s): K65.0 - Generalized (acute) peritonitis Status: Acute Assessment and Plan: Continue IV antibiotics, NG tube, bowel rest (3) Septic shock: Code(s): A41.9 - Sepsis, unspecified organism; R65.21 - Severe sepsis with septic shock Status: Acute Assessment and Plan: Secondary to acute bowel ischemia, s/p right hemicolectomy for source control. Continue IV antibiotics and critical care management. Stress dosed steroids being weaned. Wean vasopressors as tolerated. 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 (4) Atrial fibrillation: Code(s): I48.91 - Unspecified atrial fibrillation Status: Inactive Assessment and Plan: Rate-controlled and no longer on amiodarone Plan I have discussed the patient's case and plan of care with Dr. Milligan. Subjective Subjective Date/Time Seen: 07/03/24 15:24 Post Op day: 2 Patient reports: no flatus, no bowel movement and afebrile Interval history: Patient in ICU and is intubated and sedated. and daughter at the bedside. NG tube with minimal output. Per nursing, he has failed his spontaneous breathing trial this morning. He has been off sedation since around 7am and is alert and awake. He will nod to questions. Denies abdominal pain. He shakes his head yes that he has pain in his throat from the ET tube. Nursing reports he has been on and off levophed infusion throughout the day at a low rate (1mcg/min). Review of Systems Review of Systems: ROS unobtainable: Yes unobtainable due to endotracheal tube Exam Const: General: alert and awake Orientation/consciousness: Other orientation findings (KEVIN d/t ET tube) GI: Inspection: distended and incision (dry and derick intact, minimal dried bloody drainage at bottom of incision) GI Palp: Yes Soft to palpation Auscultation: Hypoactive bowel sounds present (very hypoactive) Urinary Catheter: Urinary Catheter: patent and draining and urine clear Objective Data Vital Signs Vital Signs: Vital Signs - 24 hr 07/02/24 16:00 07/02/24 16:00 07/02/24 16:00 Temperature Pulse Rate 88 89 103 H Respiratory Rate 16 16 Blood Pressure 90/46 L Pulse Oximetry Oxygen Delivery Fraction of Inspired Oxygen 07/02/24 16:00 07/02/24 16:00 07/02/24 16:00 Temperature Pulse Rate 103 H 88 Respiratory Rate Blood Pressure 106/52 L Pulse Oximetry Oxygen Delivery Fraction of Inspired Oxygen 30 07/02/24 16:00 07/02/24 16:00 07/02/24 16:00 Temperature 98.6 F Pulse Rate 90 81 84 Respiratory Rate 16 16 Blood Pressure 102/74 109/58 L Pulse Oximetry 99 100 Oxygen Delivery Mechanical Ventilation Fraction of Inspired Oxygen 30 07/02/24 16:00 07/02/24 16:15 07/02/24 16:23 Temperature Pulse Rate 89 98 93 Respiratory Rate Blood Pressure 110/58 L 92/46 L Pulse Oximetry 100 Oxygen Delivery Mechanical Ventilation Fraction of Inspired Oxygen 30 07/02/24 16:31 07/02/24 16:36 07/02/24 18:00 Temperature Pulse Rate 106 H 80 Respiratory Rate 16 Blood Pressure Pulse Oximetry Oxygen Delivery Mechanical Ventilation Fraction of Inspired Oxygen 07/02/24 18:00 07/02/24 18:00 07/02/24 18:00 Temperature Pulse Rate 86 82 82 Respiratory Rate 18 Blood Pressure 119/61 119/62 Pulse Oximetry 100 Oxygen Delivery Fraction of Inspired Oxygen 07/02/24 18:00 07/02/24 18:00 07/02/24 18:00 Temperature Pulse Rate 105 H 103 H 102 H Respiratory Rate 22 H 20 20 Blood Pressure Pulse Oximetry Oxygen Delivery Fraction of Inspired Oxygen 07/02/24 18:00 07/02/24 19:30 07/02/24 19:30 Temperature Pulse Rate 102 H 80 80 Respiratory Rate Blood Pressure 118/61 131/67 131/67 Pulse Oximetry Oxygen Delivery Fraction of Inspired Oxygen 07/02/24 20:00 07/02/24 20:00 07/02/24 20:00 Temperature Pulse Rate 79 79 79 Respiratory Rate 16 Blood Pressure 133/68 133/68 Pulse Oximetry Oxygen Delivery Fraction of Inspired Oxygen 07/02/24 20:00 07/02/24 20:00 07/02/24 20:00 Temperature Pulse Rate 79 79 79 Respiratory Rate 16 16 Blood Pressure 133/68 Pulse Oximetry Oxygen Delivery Fraction of Inspired Oxygen 07/02/24 20:00 07/02/24 20:00 07/02/24 20:00 Temperature 99.0 F Pulse Rate 79 Respiratory Rate 16 Blood Pressure 133/68 Pulse Oximetry 100 100 Oxygen Delivery Mechanical Ventilation Fraction of Inspired Oxygen 25 07/02/24 20:00 07/02/24 20:15 07/02/24 20:15 Temperature Pulse Rate 80 78 76 Respiratory Rate Blood Pressure 135/68 Pulse Oximetry 100 Oxygen Delivery Mechanical Ventilation Fraction of Inspired Oxygen 07/02/24 22:00 07/02/24 22:00 07/02/24 22:00 Temperature Pulse Rate 76 76 76 Respiratory Rate 16 16 Blood Pressure 125/65 125/65 Pulse Oximetry 100 Oxygen Delivery Fraction of Inspired Oxygen 07/02/24 22:00 07/02/24 22:00 07/02/24 22:00 Temperature Pulse Rate 76 76 76 Respiratory Rate 16 16 Blood Pressure 125/65 Pulse Oximetry Oxygen Delivery Fraction of Inspired Oxygen 07/02/24 22:00 07/02/24 22:00 07/02/24 22:40 Temperature Pulse Rate 76 76 74 Respiratory Rate Blood Pressure 125/65 135/70 Pulse Oximetry Oxygen Delivery Fraction of Inspired Oxygen 07/02/24 22:55 07/02/24 23:10 07/03/24 00:00 Temperature 98.0 F Pulse Rate 73 73 70 Respiratory Rate 16 Blood Pressure 114/61 128/91 H Pulse Oximetry 100 100 Oxygen Delivery Mechanical Ventilation Fraction of Inspired Oxygen 07/03/24 00:00 07/03/24 00:00 07/03/24 00:00 Temperature Pulse Rate 70 70 Respiratory Rate 16 16 Blood Pressure Pulse Oximetry Oxygen Delivery Fraction of Inspired Oxygen 07/03/24 00:00 07/03/24 00:00 07/03/24 00:00 Temperature Pulse Rate 70 70 70 Respiratory Rate 16 Blood Pressure 126/69 126/69 Pulse Oximetry Oxygen Delivery Fraction of Inspired Oxygen 07/03/24 00:00 07/03/24 00:00 07/03/24 00:00 Temperature Pulse Rate 70 70 Respiratory Rate 16 Blood Pressure 126/69 Pulse Oximetry 100 Oxygen Delivery Mechanical Ventilation Fraction of Inspired Oxygen 07/03/24 00:00 07/03/24 00:15 07/03/24 00:40 Temperature Pulse Rate 71 71 62 Respiratory Rate Blood Pressure 127/70 93/53 L Pulse Oximetry Oxygen Delivery Fraction of Inspired Oxygen 07/03/24 00:55 07/03/24 02:00 07/03/24 02:00 Temperature Pulse Rate 66 70 70 Respiratory Rate Blood Pressure 123/68 135/74 135/74 Pulse Oximetry Oxygen Delivery Fraction of Inspired Oxygen 07/03/24 02:00 07/03/24 02:00 07/03/24 02:00 Temperature Pulse Rate 70 70 70 Respiratory Rate 16 16 16 Blood Pressure Pulse Oximetry Oxygen Delivery Fraction of Inspired Oxygen 07/03/24 02:00 07/03/24 02:00 07/03/24 02:00 Temperature Pulse Rate 70 70 70 Respiratory Rate 16 Blood Pressure 135/74 137/74 Pulse Oximetry 100 Oxygen Delivery Fraction of Inspired Oxygen 07/03/24 02:53 07/03/24 03:35 07/03/24 04:00 Temperature Pulse Rate 72 72 69 Respiratory Rate 23 H Blood Pressure 137/78 Pulse Oximetry 100 Oxygen Delivery Mechanical Ventilation Fraction of Inspired Oxygen 07/03/24 04:00 07/03/24 04:00 07/03/24 04:00 Temperature Pulse Rate 69 69 69 Respiratory Rate 16 16 Blood Pressure 137/78 Pulse Oximetry Oxygen Delivery Fraction of Inspired Oxygen 07/03/24 04:00 07/03/24 04:00 07/03/24 04:00 Temperature Pulse Rate 69 69 Respiratory Rate 16 Blood Pressure 137/78 Pulse Oximetry Oxygen Delivery Fraction of Inspired Oxygen 07/03/24 04:00 07/03/24 04:00 07/03/24 04:00 Temperature 98.4 F Pulse Rate 69 70 Respiratory Rate 16 Blood Pressure 137/78 Pulse Oximetry 94 94 Oxygen Delivery Mechanical Ventilation Fraction of Inspired Oxygen 07/03/24 04:30 07/03/24 04:30 07/03/24 04:45 Temperature Pulse Rate 70 68 69 Respiratory Rate 16 Blood Pressure 140/80 138/77 Pulse Oximetry Oxygen Delivery Fraction of Inspired Oxygen 07/03/24 04:55 07/03/24 05:00 07/03/24 05:25 Temperature Pulse Rate 71 70 64 Respiratory Rate 16 Blood Pressure 83/49 L Pulse Oximetry 100 Oxygen Delivery Mechanical Ventilation Fraction of Inspired Oxygen 07/03/24 05:45 07/03/24 06:00 07/03/24 06:00 Temperature Pulse Rate 67 68 68 Respiratory Rate 16 Blood Pressure 138/77 145/81 H Pulse Oximetry 100 Oxygen Delivery Fraction of Inspired Oxygen 07/03/24 06:00 07/03/24 06:00 07/03/24 06:00 Temperature Pulse Rate 68 68 68 Respiratory Rate 16 Blood Pressure 145/81 H 145/81 H Pulse Oximetry Oxygen Delivery Fraction of Inspired Oxygen 07/03/24 06:00 07/03/24 06:00 07/03/24 06:00 Temperature Pulse Rate 70 68 68 Respiratory Rate 16 16 Blood Pressure 145/81 H Pulse Oximetry Oxygen Delivery Fraction of Inspired Oxygen 07/03/24 07:05 07/03/24 07:05 07/03/24 07:06 Temperature Pulse Rate 66 66 66 Respiratory Rate Blood Pressure 142/77 H 142/77 H 142/77 H Pulse Oximetry Oxygen Delivery Fraction of Inspired Oxygen 07/03/24 07:09 07/03/24 07:45 07/03/24 07:56 Temperature Pulse Rate 72 59 L 59 L Respiratory Rate 16 16 Blood Pressure 94/56 L Pulse Oximetry Oxygen Delivery Fraction of Inspired Oxygen 07/03/24 08:00 07/03/24 08:00 07/03/24 08:00 Temperature 97.4 F L Pulse Rate 62 58 L Respiratory Rate 16 12 Blood Pressure 95/56 L Pulse Oximetry 99 99 Oxygen Delivery Mechanical Ventilation Fraction of Inspired Oxygen 07/03/24 08:00 07/03/24 08:00 07/03/24 08:00 Temperature Pulse Rate 60 60 60 Respiratory Rate 16 Blood Pressure 95/56 L 95/56 L Pulse Oximetry Oxygen Delivery Fraction of Inspired Oxygen 07/03/24 08:00 07/03/24 08:00 07/03/24 08:00 Temperature Pulse Rate 60 60 60 Respiratory Rate 16 16 Blood Pressure 95/56 L Pulse Oximetry Oxygen Delivery Fraction of Inspired Oxygen 07/03/24 08:00 07/03/24 08:06 07/03/24 10:00 Temperature 97.5 F L Pulse Rate 57 L 59 L 63 Respiratory Rate 15 Blood Pressure 87/50 L Pulse Oximetry 100 100 Oxygen Delivery Mechanical Ventilation Fraction of Inspired Oxygen 07/03/24 10:00 07/03/24 10:00 07/03/24 10:15 Temperature Pulse Rate 60 59 L 59 L Respiratory Rate Blood Pressure 87/50 L Pulse Oximetry 100 Oxygen Delivery Mechanical Ventilation Fraction of Inspired Oxygen 07/03/24 10:33 07/03/24 10:34 07/03/24 10:35 Temperature Pulse Rate 60 60 60 Respiratory Rate 13 13 Blood Pressure 94/53 L Pulse Oximetry Oxygen Delivery Fraction of Inspired Oxygen 07/03/24 10:37 07/03/24 10:38 07/03/24 11:25 Temperature Pulse Rate 60 60 62 Respiratory Rate 13 Blood Pressure 94/53 L Pulse Oximetry 100 Oxygen Delivery Mechanical Ventilation Fraction of Inspired Oxygen 07/03/24 11:31 07/03/24 11:45 07/03/24 12:00 Temperature 96.7 F L Pulse Rate 62 58 L 74 Respiratory Rate 13 Blood Pressure 85/48 L 98/56 L 132/73 Pulse Oximetry 100 Oxygen Delivery Fraction of Inspired Oxygen 07/03/24 12:00 07/03/24 12:00 07/03/24 12:00 Temperature Pulse Rate 68 68 Respiratory Rate 13 Blood Pressure 132/73 Pulse Oximetry 100 Oxygen Delivery Mechanical Ventilation Fraction of Inspired Oxygen 07/03/24 12:00 07/03/24 13:30 07/03/24 13:45 Temperature Pulse Rate 62 73 73 Respiratory Rate Blood Pressure 128/70 126/66 Pulse Oximetry Oxygen Delivery Fraction of Inspired Oxygen 07/03/24 14:00 07/03/24 14:00 07/03/24 14:03 Temperature 96.6 F L Pulse Rate 69 64 69 Respiratory Rate 23 H Blood Pressure 103/52 L 108/58 L Pulse Oximetry 96 Oxygen Delivery Fraction of Inspired Oxygen Intake/Output Intake/Output: Intake & Output 06/30/24 07/01/24 07/02/24 07/03/24 23:59 23:59 23:59 23:59 Intake Total 2700 4109.0 4747.8667 2877.0 Output Total 987 670 5785 Balance 2700 3359.0 2677.8667 1377.0 Meds/Results Medications: Active Medications Generic Name Dose Route Start Last Admin Trade Name Freq PRN Reason Stop Dose Admin Dextrose 12.5 gm 07/01/24 01:32 Dextrose 50% 25 Gm/50 Ml Syringe IV PUSH PRN PRN Hypoglycemia Protocol Enoxaparin Sodium 40 mg 07/01/24 09:00 07/03/24 08:08 Enoxaparin 40 Mg/0.4 Ml Syringe SUB-Q 40 mg DAILY ROZ Administration Glucagon 1 mg 07/01/24 01:32 Glucagon For Inj 1 Mg Vial IM PRN PRN Hypoglycemia Protocol Glucose 15 gm 07/01/24 01:32 Glucose Oral Gel 15 Gm Of Glucse In 37.5 Gm Tube PO PRN PRN Hypoglycemia Protocol Hydrocortisone Sodium Succinate 50 mg 07/03/24 18:00 Hydrocortisone Sodium Succinate 100 Mg/2 Ml Vial IV PUSH 07/04/24 18:01 Q12H [facility] Norepinephrine Bitartrate 8 mg in 250 mls @ 0 mls/hr 06/30/24 22:10 07/03/24 14:03 Levophed 8 Mg/D5w 250 Ml IV CONT 0 mcg/min .Q0M ROZ 0 mls/hr Titration Protocol Piperacillin/Tazobactam/Dextrose 3.375 gm in 50 mls @ 100 mls/hr 07/01/24 04:00 07/03/24 10:06 Zosyn 3.375 Gm/Ns 50 Ml IVPB Infused Q6H ROZ Infusion Dextrose 1,000 mls @ 100 mls/hr 07/01/24 01:32 Dextrose 5% 1,000 Ml IVPB PRN PRN Hypoglycemia Protocol Potassium Phosphate 20 mmol/ 256.6667 mls @ 64.167 mls/hr 07/03/24 12:00 07/03/24 11:54 Sodium Chloride IVPB 07/03/24 15:59 64.17 mls/hr ONCE ONE Administration Insulin Aspart 2 - 5 units 07/01/24 06:00 07/03/24 11:57 Insulin Aspart (*Bkc) 100 Units/Ml SUB-Q Not Given Q6HR [facility] Protocol Levothyroxine Sodium 12.5 mcg 07/01/24 06:30 07/03/24 05:31 Levothyroxine Sodium Inj 100 Mcg/5 Ml Vial IV PUSH 12.5 mcg DAILY@0630 [facility] Administration Multi-Ingred Cream/Lotion/Oil/Oint 1 applic 07/01/24 09:00 07/03/24 08:08 Mineral Oil/White Petrolatum Ointment EACH EYE 1 applic Q12HR ROZ Administration Naloxone HCl 0.1 mg 07/01/24 01:15 Naloxone Hcl 0.4 Mg/Ml Vial IV PUSH Q2M PRN Opiate Reversal Ondansetron HCl 4 mg 07/01/24 01:15 Ondansetron Inj 4 Mg/2 Ml Vial IV PUSH Q4H PRN Nausea And Vomiting Pantoprazole Sodium 40 mg 07/01/24 09:00 07/03/24 08:08 Pantoprazole Sodium Iv 40 Mg Vial IV PUSH 40 mg Q12HR ROZ Administration Sodium Chloride 10 ml 07/01/24 06:00 07/03/24 13:38 Central Line Flush IV PUSH 10 ml Q8HR ROZ Administration Sodium Chloride 20 ml 07/01/24 02:34 Central Line Flush IV PUSH PRN PRN after blood draws Radiology Results: ITS Impressions Abdomen/Pelvis CT 06/30/24 20:18 IMPRESSION: 1. Air seen in the wall of the cecum and ascending colon with thickening in the ascending colon. Differential include infection with gas-forming organism versus ischemia versus connective tissue disease. Clinical correlation and further evaluation advised. No free air. Minimal free fluid seen around the liver. 2. Dilated small bowel loops in the distal ileum with transition zone seen in the terminal ileum area. Follow-up advised. 3. Bilateral basal atelectasis with left pleural effusion. 4. Cardiomegaly. 5. Slightly thickened wall of the bladder. Evaluation for cystitis advised Dr. Puckett was notified with the result of the patient at 8:40 PM on June 30, 2024. Chest X-Ray 07/03/24 06:44 Impression: Mild central congestive change and probable partial left lower lobe atelectasis. Support tubes, as above. Labs Labs: Laboratory Results - last 24 hr 07/02/24 07/03/24 07/03/24 18:17 00:16 04:53 WBC RBC Hgb Hct MCV MCH MCHC RDW Plt Count MPV Immature Gran % (Auto) Neut % (Auto) Lymph % (Auto) [place] % (Auto) Eos % (Auto) Baso % (Auto) Lymph # (Auto) [place] # (Auto) Eos # (Auto) Baso # (Auto) Abs Immat Gran (auto) Absolute Neuts (auto) Absolute Nucleated RBC Nucleated RBC % Puncture Site Artline ABG pH 7.449 ABG pCO2 33.7 L ABG pO2 97.0 ABG PO2/FiO2 Ratio 3.88 ABG HCO3 22.8 ABG O2 Saturation 97.7 ABG O2 Content 14.5 L ABG Base Excess -0.7 A-a Gradient 41.2 Oxyhemoglobin 97.1 Carboxyhemoglobin 0.1 Methemoglobin 0.3 Reduced Hemoglobin 2.5 Total Hemoglobin 10.5 L O2 Delivery Device Ventilator O2 Liters/Min Not Reportable Minute Volume Not Reportable Vent Rate 16 Vent Mode Cmv FiO2 25 Tidal Volume 450 PEEP 5 Peak Inspir Pressure Not Reportable Pressure Support Not Reportable Sodium Potassium Chloride Carbon Dioxide Anion Gap BUN Creatinine Estim Creat Clear Calc Estimated GFR Glucose POC Capillary Glucose 130 H 150 H Lactic Acid Calcium Phosphorus Magnesium Total Bilirubin AST ALT Alkaline Phosphatase Total Protein Albumin 07/03/24 07/03/24 06:04 11:48 WBC 17.6 H RBC 3.11 L Hgb 9.7 L Hct 30.6 L MCV 98.4 MCH 31.2 MCHC 31.7 L RDW 13.7 Plt Count 122 L MPV 9.0 Immature Gran % (Auto) 1.3 H Neut % (Auto) 91.7 H Lymph % (Auto) 3.1 L [place] % (Auto) 3.8 Eos % (Auto) 0.0 Baso % (Auto) 0.1 L Lymph # (Auto) 0.55 L [place] # (Auto) 0.7 H Eos # (Auto) 0.0 Baso # (Auto) 0.0 Abs Immat Gran (auto) 0.22 H Absolute Neuts (auto) 16.2 H Absolute Nucleated RBC 0.000 Nucleated RBC % 0.0 Puncture Site ABG pH ABG pCO2 ABG pO2 ABG PO2/FiO2 Ratio ABG HCO3 ABG O2 Saturation ABG O2 Content ABG Base Excess A-a Gradient Oxyhemoglobin Carboxyhemoglobin Methemoglobin Reduced Hemoglobin Total Hemoglobin O2 Delivery Device O2 Liters/Min Minute Volume Vent Rate Vent Mode FiO2 Tidal Volume PEEP Peak Inspir Pressure Pressure Support Sodium 134 L Potassium 3.2 L Chloride 100 Carbon Dioxide 26 Anion Gap 8 BUN 17 Creatinine 0.64 L Estim Creat Clear Calc 84 Estimated GFR > 60 Glucose 144 H POC Capillary Glucose 126 H Lactic Acid 1.1 Calcium 7.8 L Phosphorus 2.3 L Magnesium 2.4 H Total Bilirubin 0.9 AST 14 L ALT 7 Alkaline Phosphatase 40 Total Protein 6.0 L Albumin 3.3 L
[2024-07-03] MEDS: HYDROCORTISONE SODIUM SUCCINATE 100 MG/2 ML VIAL 50 MG IV PUSH (17:37)
[2024-07-03 18:01] LABS: Glucose Point of Care 97 mg/dl (65-105)
[2024-07-03 23:26] LABS: Glucose Point of Care 111 mg/dl (65-105)
[2024-07-04] VITALS (18 sets, daily range): BP systolic 107–143; BP diastolic 51–73; PULSE 69–86; RESP 16–19; TEMP 36.4–37.3; O2SAT 97–100
[2024-07-04] MEDS: PIPERACILLN/TAZ 3.375GM/NS50ML 3.375 GM/50 ML BAG IVPB ×4 (04:56→21:10)
[2024-07-04] MEDS: HYDROCORTISONE SODIUM SUCCINATE 100 MG/2 ML VIAL 50 MG IV PUSH ×2 (05:05→18:30)
[2024-07-04] MEDS: CENTRAL LINE FLUSH 10 ML IV PUSH ×3 (05:08→21:11)
[2024-07-04] MEDS: LEVOTHYROXINE SODIUM INJ 100 MCG/5 ML VIAL 12.5 MCG IV PUSH (05:08)
[2024-07-04 05:12] LABS: Glucose Point of Care 92 mg/dl (65-105)
[2024-07-04 05:22] LABS: Basophils Percent Auto 0.1 % (0.2-1.2); Hematocrit 28.8 % (42.0-52.0); Hemoglobin 9.2 g/dL (14.0-18.0); Immature Granulocyte Absolute 0.13 K/mm3 (0.00-0.031); Immature Granulocyte Percent A 0.9 % (0-0.5); Lymphocytes Absolute Auto 0.85 K/mm3 (0.9-3.2); Mean Corpuscular HGB Conc 31.9 g/dl (32-36); Mean Corpuscular Hemoglobin 31.6 pg (26-34); Mean Platelet Volume 9.2 fl (7.4-10.4); Monocytes Absolute Auto 0.7 K/mm3 (0.1-0.6); Monocytes Percent Auto 5.3 % (2.6-8.5); Neutrophils Absolute Auto 12.4 K/mm3 (1.3-6.7); Neutrophils Percent Auto 87.7 % (45.5-73.1); Platelet Count Result 127 k/mm3 (150-375); Red Blood Count 2.91 M/mm3 (4.6-6.20); Red Cell Distribution Width 13.6 % (11.5-14.5); White Blood Count 14.1 K/mm3 (4.5-10.0)
[2024-07-04 05:37] LABS: Alanine Aminotransferase 8 U/L (6-50); Albumin Level 3.2 g/dL (3.5-5.1); Alkaline Phosphatase 37 U/L (38-126); Anion Gap 8 mmol/L (4-12); Aspartate Amino Transferase 17 U/L (17-59); Bilirubin,Total 0.8 mg/dL (0.2-1.3); Blood Urea Nitrogen 21 mg/dL (9-20); Carbon Dioxide 25 mmol/L (22-30); Chloride 103 mmol/L (98-107); Estimated CRCL calculation 68 ml/min; Estimated Glomerular Filt Rate > 60; Glucose 98 mg/dL (65-110); Magnesium 2.3 mg/dL (1.6-2.3); Phosphorus 2.4 mg/dL (2.5-4.5); Potassium 3.1 mmol/L (3.4-5.0); Sodium 136 mmol/L (137-145)
[2024-07-04 05:44] LABS: Alveolar/Arterial O2 Gradient 57.3 mmHg; Base Excess ABG -0.9 mEq/l (+/-2.0); Carboxyhemoglobin 0.4 % THb (0-2.0); Fractional Inspired Oxygen 25 %; HCO3 ABG 22.4 mEq/l (22.0-26.0); Methemoglobin ABG 0.3 %THb (0-1.5); Oxygen Content ABG 14.5 %vol (16.0-22.0); Oxygen Saturation ABG 96.7 % (95.0-100.0); Oxyhemoglobin 95.6 % THb (90.0-100.0); PCO2 ABG 32.4 mmHg (35.0-45.0); PO2 ABG 82.5 mmHg (80.0-100.0); Reduced Hemoglobin 3.7 %THb (0-5.0); Total Hemoglobin 10.7 g/dL (12.0-18.0); pH ABG 7.458 (7.350-7.450)
[2024-07-04 05:46] LABS: Modified Allen's Test Pass; Site Drawn RIGHT RADIAL
[2024-07-04 05:48] LABS: Device VENTILATOR
[2024-07-04 05:49] LABS: Arterial Blood Gas PEEP 5 cmH2O; Arterial Blood Gas Vent Mode CMV; Arterial Blood Gas Ventilator rate 16 /MIN
[2024-07-04 05:50] LABS: Arterial Blood Gas Tidal Volume 450 ml
[2024-07-04] MEDS: ENOXAPARIN 40 MG/0.4 ML SYRINGE SUB-Q (07:56)
[2024-07-04] MEDS: FUROSEMIDE INJ 40 MG/4 ML VIAL IV PUSH (07:56)
[2024-07-04] MEDS: PANTOPRAZOLE SODIUM IV 40 MG VIAL IV PUSH ×2 (07:56→20:07)
[2024-07-04] MEDS: KCL 40 MEQ/WATER 100 ML 100 ML 25 ML IVPB ×2 (07:57→12:00)
--- NOTE | 2024-07-04 08:56 | P.PNINT_ITS ---
Progress Note: A&P Assessment and Plan (1) Septic shock: Code(s): A41.9 - Sepsis, unspecified organism; R65.21 - Severe sepsis with septic shock Status: Acute Assessment and Plan: Septic shock secondary ischemic bowel but no perforation status post ex lap, right hemicolectomy with ileocolic anastomosis (07/01) Patient has received more than 4 L of crystalloids. I will decrease IV fluid rate to 100 mL/hour Received 5% % albumin bolus and 25% albumin to minimize third-spacing Continue Levophed and vasopressin infusion to maintain MAP > 65 mmHg or SBP > 100 mmHg for adequate end organs perfusion Start weaning stress dose steroids 07/01: blood culture results are negative x2 07/01: urine cultures negative -Continue empiric Zosyn (07/01) 07/01/2024: Echocardiogram Summary 1. The left ventricle is normal in size and systolic function. The left ventricular ejection fraction is visually estimated to be 60-65%. Paradoxical septum motion abnormality suggestive of bundle-branch block. 2. The right ventricle is poorly visualized however does appear mildly dilated with mildly reduced systolic function. 3. The valves are poorly visualized in this study however there does not appear to be any severe valvular abnormalities. (2) Respiratory failure: Qualifiers: Chronicity: acute Respiratory failure complication: unspecified whether with hypoxia or hypercapnia Qualified Code(s): J96.00 - Acute respiratory failure, unspecified whether with hypoxia or hypercapnia Code(s): J96.90 - Respiratory failure, unspecified, unspecified whether with hypoxia or hypercapnia Status: Acute Assessment and Plan: Acute Respiratory failure secondary to septic shock, peritonitis, bowel ischemia , general anaesthesia Patient now intubated and on CMV mode of ventilation, Chest x-ray reviewed and ET tube, ventilator adjusted Continue full mechanical ventilation sup Continue mechanical ventilation until hemodynamics improved and then and will evaluate for weaning Low tidal volume ventilation strategy to prevent volutrauma Off all sedation > 48 hours -this morning patient is more awake and alert, placed patient on SBT, anticipate it extubation, will diurese with Lasix as patient is in positive fluid balance (3) Chronic atrial fibrillation with RVR: Code(s): I48.20 - Chronic atrial fibrillation, unspecified Status: Acute Assessment and Plan: Patient presented with AFib RVR, was given amiodarone bolus and started on amiodarone infusion -currently anticoagulation on hold -off amiodarone infusion, remains in AFib, rate controlled (4) Chronic anticoagulation: Code(s): Z79.01 - correction (current) use of anticoagulants Status: Acute Assessment and Plan: Patient was on Eliquis and received FFP for the surgery. Continue to hold anticoagulation at this time due to high risk of bleeding -will discuss with surgery regarding restarting full anticoagulation (5) Acute ischemia of large intestine: Code(s): K55.039 - Acute (reversible) ischemia of large intestine, extent unspecified Status: Acute Assessment and Plan: Status post exploratory laparotomy and right hemicolectomy NPO Management per General surgery (6) Peritonitis (acute) generalized: Code(s): K65.0 - Generalized (acute) peritonitis Status: Acute Assessment and Plan: See above (7) Electrolyte imbalance: Code(s): E87.8 - Other disorders of electrolyte and fluid balance, not elsewhere classified Status: Acute Assessment and Plan: Will replace potassium Plan DVT prophylaxis -Lovenox Stress ulcer prophylaxis -PPI Nutrition - NPO Code Status -patient is DNR Total Critical Care Time - 32 minutes Discussed with patient's at bedside and updated her with patient's condition and plan of care. I answered all questions Due to a high probability of clinically significant, life threatening deterioration, the patient required my highest level of preparedness to intervene emergently and I personally spent this critical care time directly and personally managing the patient. This critical care time included obtaining a history; examining the patient; pulse oximetry; ordering and review of studies; arranging urgent treatment with development of a management plan; evaluation of patient's response to treatment; frequent reassessment; and discussions with other providers. It was exclusive of separately billable procedures and treating other patients and teaching time. Please see Assessment and Plan section and the rest of the note for further information on patient assessment and treatment Subjective Date/time seen: 07/04/24 08:56 Interval history: Reason for consult: Acute respiratory failure, acute bowel ischemia septic shock status post ex lap and right hemicolectomy with ileocolonic anastomosis on 07/01/2024 07/04/2024: Patient seen and examined the ICU, remains intubated on CMV mode of ventilation, peep of 5, 25% FiO2. Off all sedation > 48 hours. Patient is more awake, eyes are open, nods to questions, follows simple commands. Currently afebrile, hemodynamically stable, adequate urine output in response to diuretics. Patient has been off amiodarone: In AFib, rate controlled Review of Systems Review of Systems: ROS unobtainable: Yes unobtainable due to endotracheal tube, unobtainable due to medical condition and unobtainable due to mental status Exam Narrative: General: Pt is intubated and on mechanical ventilation HEENT: Pupils are reactive, anisocoria - left surgical pupil larger than the right. Sclera is clear, ETT in Lungs/Chest: Trachea central Coarse BS B/L, few bibasilar crackles Cardiac: Irregularly irregular, bradycardia. Abdomen: Soft, hypoactive bowel sounds, tenderness to palpation as he grimaces, midline incision covered under dressing. Scrotal swelling noted Extremities: Bilateral lower extremity edema, decreased pedal pulses : Sneed in place Neurologic: Remains intubated not on any sedation, more awake this morning, awake, alert, follows simple commands in all extremities Psych: Unable to assess at this time Objective Data Vital Signs Vital Signs: Vital Signs - 24 hr 07/03/24 10:00 07/03/24 10:00 07/03/24 10:00 Temperature 97.5 F L Pulse Rate 63 60 59 L Respiratory Rate 15 Blood Pressure 87/50 L 87/50 L Pulse Oximetry 100 Oxygen Delivery Fraction of Inspired Oxygen 07/03/24 10:15 07/03/24 10:33 07/03/24 10:34 Temperature Pulse Rate 59 L 60 60 Respiratory Rate 13 Blood Pressure 94/53 L Pulse Oximetry 100 Oxygen Delivery Mechanical Ventilation Fraction of Inspired Oxygen 07/03/24 10:35 07/03/24 10:37 07/03/24 10:38 Temperature Pulse Rate 60 60 60 Respiratory Rate 13 13 Blood Pressure 94/53 L Pulse Oximetry Oxygen Delivery Fraction of Inspired Oxygen 07/03/24 11:25 07/03/24 11:31 07/03/24 11:45 Temperature Pulse Rate 62 62 58 L Respiratory Rate Blood Pressure 85/48 L 98/56 L Pulse Oximetry 100 Oxygen Delivery Mechanical Ventilation Fraction of Inspired Oxygen 07/03/24 12:00 07/03/24 12:00 07/03/24 12:00 Temperature 96.7 F L Pulse Rate 74 68 68 Respiratory Rate 13 13 Blood Pressure 132/73 132/73 Pulse Oximetry 100 100 Oxygen Delivery Mechanical Ventilation Fraction of Inspired Oxygen 25 07/03/24 12:00 07/03/24 12:00 07/03/24 13:30 Temperature Pulse Rate 62 73 Respiratory Rate Blood Pressure 128/70 Pulse Oximetry Oxygen Delivery Fraction of Inspired Oxygen 25 07/03/24 13:45 07/03/24 14:00 07/03/24 14:00 Temperature 96.6 F L Pulse Rate 73 65 64 Respiratory Rate 23 H Blood Pressure 126/66 103/52 L Pulse Oximetry 96 Oxygen Delivery Fraction of Inspired Oxygen 07/03/24 14:03 07/03/24 15:04 07/03/24 16:00 Temperature 97.8 F Pulse Rate 69 62 73 Respiratory Rate 9 L Blood Pressure 108/58 L 95/82 L Pulse Oximetry 100 100 Oxygen Delivery Mechanical Ventilation Fraction of Inspired Oxygen 25 07/03/24 16:00 07/03/24 16:00 07/03/24 16:00 Temperature Pulse Rate 73 72 Respiratory Rate 13 Blood Pressure Pulse Oximetry 100 Oxygen Delivery Mechanical Ventilation Fraction of Inspired Oxygen 25 07/03/24 16:00 07/03/24 17:00 07/03/24 17:38 Temperature Pulse Rate 67 71 Respiratory Rate Blood Pressure 111/58 L Pulse Oximetry 100 Oxygen Delivery Mechanical Ventilation Fraction of Inspired Oxygen 25 07/03/24 18:00 07/03/24 18:00 07/03/24 18:00 Temperature 98.1 F Pulse Rate 69 78 73 Respiratory Rate 15 Blood Pressure 128/62 128/62 Pulse Oximetry 100 Oxygen Delivery Fraction of Inspired Oxygen 07/03/24 19:44 07/03/24 20:00 07/03/24 20:00 Temperature 98.1 F Pulse Rate 71 75 75 Respiratory Rate 16 Blood Pressure 123/58 L 123/58 L Pulse Oximetry 100 100 Oxygen Delivery Mechanical Ventilation Fraction of Inspired Oxygen 25 07/03/24 20:00 07/03/24 20:00 07/03/24 20:00 Temperature Pulse Rate 75 73 Respiratory Rate 17 Blood Pressure Pulse Oximetry 100 Oxygen Delivery Mechanical Ventilation Fraction of Inspired Oxygen 25 25 07/03/24 22:00 07/03/24 22:00 07/03/24 22:00 Temperature Pulse Rate 75 75 75 Respiratory Rate 17 Blood Pressure 119/62 119/62 Pulse Oximetry 100 Oxygen Delivery Fraction of Inspired Oxygen 07/03/24 22:34 07/04/24 00:00 07/04/24 00:00 Temperature 98.4 F Pulse Rate 82 74 74 Respiratory Rate 16 16 Blood Pressure 110/51 L Pulse Oximetry 100 99 99 Oxygen Delivery Mechanical Ventilation Mechanical Ventilation Fraction of Inspired Oxygen 07/04/24 00:00 07/04/24 00:00 07/04/24 00:00 Temperature Pulse Rate 74 81 Respiratory Rate Blood Pressure 110/51 L Pulse Oximetry Oxygen Delivery Fraction of Inspired Oxygen 07/04/24 01:16 07/04/24 02:00 07/04/24 02:00 Temperature Pulse Rate 75 72 72 Respiratory Rate Blood Pressure 124/57 L Pulse Oximetry 100 Oxygen Delivery Mechanical Ventilation Fraction of Inspired Oxygen 07/04/24 02:00 07/04/24 04:00 07/04/24 04:00 Temperature 97.6 F Pulse Rate 72 78 78 Respiratory Rate 16 18 18 Blood Pressure 124/57 L 134/64 Pulse Oximetry 100 100 100 Oxygen Delivery Mechanical Ventilation Fraction of Inspired Oxygen 07/04/24 04:00 07/04/24 04:00 07/04/24 06:00 Temperature Pulse Rate 78 73 Respiratory Rate Blood Pressure 134/64 Pulse Oximetry Oxygen Delivery Fraction of Inspired Oxygen 07/04/24 06:00 07/04/24 06:03 07/04/24 08:00 Temperature 99.1 F Pulse Rate 73 71 73 Respiratory Rate 16 19 Blood Pressure 124/54 L 134/62 Pulse Oximetry 100 100 100 Oxygen Delivery Mechanical Ventilation Fraction of Inspired Oxygen 07/04/24 08:37 Temperature Pulse Rate 78 Respiratory Rate Blood Pressure Pulse Oximetry 100 Oxygen Delivery Mechanical Ventilation Fraction of Inspired Oxygen 25 Intake/Output Intake/Output: Intake & Output 07/01/24 07/02/24 07/03/24 07/04/24 23:59 23:59 23:59 23:59 Intake Total 4109.0 3477.8667 2977.0 50 Output Total 980 426 4604 250 Balance 3359.0 2677.8667 1327.0 -200 Meds/Results Medications: Active Medications Generic Name Dose Route Start Last Admin Trade Name Freq PRN Reason Stop Dose Admin Dextrose 12.5 gm 07/01/24 01:32 Dextrose 50% 25 Gm/50 Ml Syringe IV PUSH PRN PRN Hypoglycemia Protocol Enoxaparin Sodium 40 mg 07/01/24 09:00 07/04/24 07:56 Enoxaparin 40 Mg/0.4 Ml Syringe SUB-Q 40 mg DAILY ROZ Administration Glucagon 1 mg 07/01/24 01:32 Glucagon For Inj 1 Mg Vial IM PRN PRN Hypoglycemia Protocol Glucose 15 gm 07/01/24 01:32 Glucose Oral Gel 15 Gm Of Glucse In 37.5 Gm Tube PO PRN PRN Hypoglycemia Protocol Hydrocortisone Sodium Succinate 50 mg 07/03/24 18:00 07/04/24 05:05 Hydrocortisone Sodium Succinate 100 Mg/2 Ml Vial IV PUSH 07/04/24 18:01 50 mg Q12H ROZ Administration Piperacillin/Tazobactam/Dextrose 3.375 gm in 50 mls @ 100 mls/hr 07/01/24 04:00 07/04/24 05:26 Zosyn 3.375 Gm/Ns 50 Ml IVPB Infused Q6H ROZ Infusion Dextrose 1,000 mls @ 100 mls/hr 07/01/24 01:32 Dextrose 5% 1,000 Ml IVPB PRN PRN Hypoglycemia Protocol Potassium Chloride 100 mls @ 25 mls/hr 07/04/24 07:20 07/04/24 07:57 Kcl 40 Meq/Water 100 Ml IVPB 07/04/24 11:19 25 mls/hr ONCE ONE Administration Potassium Chloride 100 mls @ 25 mls/hr 07/04/24 12:00 Kcl 40 Meq/Water 100 Ml IVPB 07/04/24 15:59 ONCE ONE Insulin Aspart 2 - 5 units 07/01/24 06:00 07/04/24 05:10 Insulin Aspart (*Bkc) 100 Units/Ml SUB-Q Not Given Q6HR [facility] Protocol Levothyroxine Sodium 12.5 mcg 07/01/24 06:30 07/04/24 05:08 Levothyroxine Sodium Inj 100 Mcg/5 Ml Vial IV PUSH 12.5 mcg DAILY@0630 [facility] Administration Multi-Ingred Cream/Lotion/Oil/Oint 1 applic 07/01/24 09:00 07/04/24 07:57 Mineral Oil/White Petrolatum Ointment EACH EYE Not Given Q12HR [facility] Naloxone HCl 0.1 mg 07/01/24 01:15 Naloxone Hcl 0.4 Mg/Ml Vial IV PUSH Q2M PRN Opiate Reversal Ondansetron HCl 4 mg 07/01/24 01:15 Ondansetron Inj 4 Mg/2 Ml Vial IV PUSH Q4H PRN Nausea And Vomiting Pantoprazole Sodium 40 mg 07/01/24 09:00 07/04/24 07:56 Pantoprazole Sodium Iv 40 Mg Vial IV PUSH 40 mg Q12HR ROZ Administration Sodium Chloride 10 ml 07/01/24 06:00 07/04/24 05:08 Central Line Flush IV PUSH 10 ml Q8HR ROZ Administration Sodium Chloride 20 ml 07/01/24 02:34 Central Line Flush IV PUSH PRN PRN after blood draws Radiology Results: ITS Impressions Abdomen/Pelvis CT 06/30/24 20:18 IMPRESSION: 1. Air seen in the wall of the cecum and ascending colon with thickening in the ascending colon. Differential include infection with gas-forming organism versus ischemia versus connective tissue disease. Clinical correlation and further evaluation advised. No free air. Minimal free fluid seen around the liver. 2. Dilated small bowel loops in the distal ileum with transition zone seen in the terminal ileum area. Follow-up advised. 3. Bilateral basal atelectasis with left pleural effusion. 4. Cardiomegaly. 5. Slightly thickened wall of the bladder. Evaluation for cystitis advised Dr. Puckett was notified with the result of the patient at 8:40 PM on June 30, 2024. Chest X-Ray 07/04/24 06:09 Impression: Small bilateral pleural effusions with bibasilar pulmonary edema. Support tubes, as above. Labs Labs: Laboratory Results - last 24 hr 07/03/24 07/03/24 07/03/24 11:48 17:31 23:20 WBC RBC Hgb Hct MCV MCH MCHC RDW Plt Count MPV Immature Gran % (Auto) Neut % (Auto) Lymph % (Auto) Moca % (Auto) Eos % (Auto) Baso % (Auto) Lymph # (Auto) Moca # (Auto) Eos # (Auto) Baso # (Auto) Abs Immat Gran (auto) Absolute Neuts (auto) Absolute Nucleated RBC Nucleated RBC % Puncture Site ABG pH ABG pCO2 ABG pO2 ABG PO2/FiO2 Ratio ABG HCO3 ABG O2 Saturation ABG O2 Content ABG Base Excess A-a Gradient Oxyhemoglobin Carboxyhemoglobin Methemoglobin Reduced Hemoglobin Total Hemoglobin O2 Delivery Device O2 Liters/Min Minute Volume Vent Rate Vent Mode FiO2 Tidal Volume PEEP Peak Inspir Pressure Pressure Support Sodium Potassium Chloride Carbon Dioxide Anion Gap BUN Creatinine Estim Creat Clear Calc Estimated GFR Glucose POC Capillary Glucose 126 H 97 111 H Calcium Phosphorus Magnesium Total Bilirubin AST ALT Alkaline Phosphatase Total Protein Albumin 07/04/24 07/04/24 07/04/24 05:04 05:10 05:30 WBC 14.1 H RBC 2.91 L Hgb 9.2 L Hct 28.8 L MCV 99.0 MCH 31.6 MCHC 31.9 L RDW 13.6 Plt Count 127 L MPV 9.2 Immature Gran % (Auto) 0.9 H Neut % (Auto) 87.7 H Lymph % (Auto) 6.0 L Moca % (Auto) 5.3 Eos % (Auto) 0.0 Baso % (Auto) 0.1 L Lymph # (Auto) 0.85 L Moca # (Auto) 0.7 H Eos # (Auto) 0.0 Baso # (Auto) 0.0 Abs Immat Gran (auto) 0.13 H Absolute Neuts (auto) 12.4 H Absolute Nucleated RBC 0.000 Nucleated RBC % 0.0 Puncture Site Right radial ABG pH 7.458 H ABG pCO2 32.4 L ABG pO2 82.5 ABG PO2/FiO2 Ratio 3.30 ABG HCO3 22.4 ABG O2 Saturation 96.7 ABG O2 Content 14.5 L ABG Base Excess -0.9 A-a Gradient 57.3 Oxyhemoglobin 95.6 Carboxyhemoglobin 0.4 Methemoglobin 0.3 Reduced Hemoglobin 3.7 Total Hemoglobin 10.7 L O2 Delivery Device Ventilator O2 Liters/Min Not Reportable Minute Volume Not Reportable Vent Rate 16 Vent Mode Cmv FiO2 25 Tidal Volume 450 PEEP 5 Peak Inspir Pressure Not Reportable Pressure Support Not Reportable Sodium 136 L Potassium 3.1 L Chloride 103 Carbon Dioxide 25 Anion Gap 8 BUN 21 H Creatinine 0.81 Estim Creat Clear Calc 68 Estimated GFR > 60 Glucose 98 POC Capillary Glucose 92 Calcium 8.0 L Phosphorus 2.4 L Magnesium 2.3 Total Bilirubin 0.8 AST 17 ALT 8 Alkaline Phosphatase 37 L Total Protein 5.0 L Albumin 3.2 L Quality VTE Prophylaxis VTE prophylaxis: pharmacologic ordered
[2024-07-04 09:39] LABS: Alveolar/Arterial O2 Gradient 43.9 mmHg; Base Excess ABG -0.2 mEq/l (+/-2.0); Carboxyhemoglobin 0.2 % THb (0-2.0); Fractional Inspired Oxygen 25 %; HCO3 ABG 23.4 mEq/l (22.0-26.0); Methemoglobin ABG 0.3 %THb (0-1.5); Oxygen Content ABG 14.2 %vol (16.0-22.0); Oxygen Saturation ABG 97.5 % (95.0-100.0); Oxyhemoglobin 96.5 % THb (90.0-100.0); PCO2 ABG 34.1 mmHg (35.0-45.0); PO2 ABG 93.9 mmHg (80.0-100.0); PO2 FiO2 Ratio Arterial Blood 3.76 %; Total Hemoglobin 10.4 g/dL (12.0-18.0); pH ABG 7.454 (7.350-7.450)
[2024-07-04 09:40] LABS: Device VENTILATOR; Modified Allen's Test Pass; Site Drawn ARTLINE
[2024-07-04 09:41] LABS: Arterial Blood Gas PEEP 5 cmH2O; Arterial Blood Gas Pressure Support 8 cmH2O; Arterial Blood Gas Vent Mode PRESSURE SUPPORT
[2024-07-04 11:23] LABS: Glucose Point of Care 93 mg/dl (65-105)
--- NOTE | 2024-07-04 12:24 | PM.PNGS ---
Progress Note: A&P Assessment and Plan (1) Acute ischemia of large intestine: Code(s): K55.039 - Acute (reversible) ischemia of large intestine, extent unspecified Status: Acute Assessment and Plan: S/p right hemicolectomy. Bowel function returning. Patient extubated today. Continue NG tube for now and patient will have a bedside swallow test this afternoon. If he passes, then okay to start clear liquids and remove the NG tube. If he fails, then keep NG tube and start trickle tube feedings. Continue IV antibiotics PT/OT ordered, up to the chair today (2) Peritonitis (acute) generalized: Code(s): K65.0 - Generalized (acute) peritonitis Status: Acute Assessment and Plan: Continue IV antibiotics, see plan above (3) Septic shock: Code(s): A41.9 - Sepsis, unspecified organism; R65.21 - Severe sepsis with septic shock Status: Acute Assessment and Plan: Secondary to acute bowel ischemia, s/p right hemicolectomy for source control. Patient extubated today and no longer on vasopressors. Continue IV antibiotics and critical care management. (4) Atrial fibrillation: Code(s): I48.91 - Unspecified atrial fibrillation Status: Inactive Assessment and Plan: Rate-controlled and no longer on amiodarone. Anticoagulation still on hold, on prophylactic Lovenox. Plan I have discussed the patient's case and plan of care with Dr. Milligan. Subjective Subjective Date/Time Seen: 07/04/24 12:24 Post Op day: 3 Interval history: Patient seen in ICU. He was extubated this morning. He has not yet had a bedside swallow test. Nursing is planning this later today. He is able to answer questions. He is a little confused this morning per family. When talking to me he is confused in terms of timeframes of his hospitalization. He is oriented to self and place. He denies any abdominal pain. His only complaint is a sore throat from the ET tube. He has a productive cough. he is passing flatus this morning and nursing reports a small formed BM last night. He has been off vasopressors for over 24 hours. Exam Const: General: comfortable and no acute distress Orientation/consciousness: oriented to person, oriented to place and confusion GI: Inspection: non-distended and incision (dry and derick intact) GI Palp: Yes Soft to palpation, No Tenderness to palpation present (GI) and No Guarding due to palpation present (GI) Auscultation: normal bowel sounds Urinary Catheter: Urinary Catheter: patent and draining and urine clear Skin: Other: Two small skin tears on his left anterior knee and anterior left thigh Extrem: Right upper extremity: edema (diffuse bilateral upper extremity edema 2+) Objective Data Vital Signs Vital Signs: Vital Signs - 24 hr 07/03/24 13:30 07/03/24 13:45 07/03/24 14:00 Temperature Pulse Rate 73 73 65 Respiratory Rate Blood Pressure 128/70 126/66 Pulse Oximetry Oxygen Delivery Oxygen Flow Rate Fraction of Inspired Oxygen 07/03/24 14:00 07/03/24 14:03 07/03/24 15:04 Temperature 96.6 F L Pulse Rate 64 69 62 Respiratory Rate 23 H Blood Pressure 103/52 L 108/58 L Pulse Oximetry 96 100 Oxygen Delivery Mechanical Ventilation Oxygen Flow Rate Fraction of Inspired Oxygen 07/03/24 16:00 07/03/24 16:00 07/03/24 16:00 Temperature 97.8 F Pulse Rate 73 73 Respiratory Rate 9 L 13 Blood Pressure 95/82 L Pulse Oximetry 100 100 Oxygen Delivery Mechanical Ventilation Oxygen Flow Rate Fraction of Inspired Oxygen 07/03/24 16:00 07/03/24 16:00 07/03/24 17:00 Temperature Pulse Rate 72 67 Respiratory Rate Blood Pressure 111/58 L Pulse Oximetry Oxygen Delivery Oxygen Flow Rate Fraction of Inspired Oxygen 07/03/24 17:38 07/03/24 18:00 07/03/24 18:00 Temperature 98.1 F Pulse Rate 71 69 78 Respiratory Rate 15 Blood Pressure 128/62 Pulse Oximetry 100 100 Oxygen Delivery Mechanical Ventilation Oxygen Flow Rate Fraction of Inspired Oxygen 07/03/24 18:00 07/03/24 19:44 07/03/24 20:00 Temperature Pulse Rate 73 71 75 Respiratory Rate Blood Pressure 128/62 123/58 L Pulse Oximetry 100 Oxygen Delivery Mechanical Ventilation Oxygen Flow Rate Fraction of Inspired Oxygen 07/03/24 20:00 07/03/24 20:00 07/03/24 20:00 Temperature 98.1 F Pulse Rate 75 75 Respiratory Rate 16 17 Blood Pressure 123/58 L Pulse Oximetry 100 100 Oxygen Delivery Mechanical Ventilation Oxygen Flow Rate Fraction of Inspired Oxygen 07/03/24 20:00 07/03/24 22:00 07/03/24 22:00 Temperature Pulse Rate 73 75 75 Respiratory Rate Blood Pressure 119/62 Pulse Oximetry Oxygen Delivery Oxygen Flow Rate Fraction of Inspired Oxygen 07/03/24 22:00 07/03/24 22:34 07/04/24 00:00 Temperature Pulse Rate 75 82 74 Respiratory Rate 17 16 Blood Pressure 119/62 Pulse Oximetry 100 100 99 Oxygen Delivery Mechanical Ventilation Mechanical Ventilation Oxygen Flow Rate Fraction of Inspired Oxygen 07/04/24 00:00 07/04/24 00:00 07/04/24 00:00 Temperature 98.4 F Pulse Rate 74 74 Respiratory Rate 16 Blood Pressure 110/51 L 110/51 L Pulse Oximetry 99 Oxygen Delivery Oxygen Flow Rate Fraction of Inspired Oxygen 07/04/24 00:00 07/04/24 01:16 07/04/24 02:00 Temperature Pulse Rate 81 75 72 Respiratory Rate Blood Pressure 124/57 L Pulse Oximetry 100 Oxygen Delivery Mechanical Ventilation Oxygen Flow Rate Fraction of Inspired Oxygen 07/04/24 02:00 07/04/24 02:00 07/04/24 04:00 Temperature Pulse Rate 72 72 78 Respiratory Rate 16 18 Blood Pressure 124/57 L Pulse Oximetry 100 100 Oxygen Delivery Mechanical Ventilation Oxygen Flow Rate Fraction of Inspired Oxygen 07/04/24 04:00 07/04/24 04:00 07/04/24 04:00 Temperature 97.6 F Pulse Rate 78 78 Respiratory Rate 18 Blood Pressure 134/64 134/64 Pulse Oximetry 100 Oxygen Delivery Oxygen Flow Rate Fraction of Inspired Oxygen 07/04/24 06:00 07/04/24 06:00 07/04/24 06:03 Temperature Pulse Rate 73 73 71 Respiratory Rate 16 Blood Pressure 124/54 L Pulse Oximetry 100 100 Oxygen Delivery Mechanical Ventilation Oxygen Flow Rate Fraction of Inspired Oxygen 07/04/24 08:00 07/04/24 08:00 07/04/24 08:00 Temperature 99.1 F Pulse Rate 73 76 79 Respiratory Rate 19 18 Blood Pressure 134/62 Pulse Oximetry 100 97 Oxygen Delivery Mechanical Ventilation Oxygen Flow Rate Fraction of Inspired Oxygen 07/04/24 08:00 07/04/24 08:37 07/04/24 09:45 Temperature Pulse Rate 78 Respiratory Rate Blood Pressure Pulse Oximetry 100 100 Oxygen Delivery Mechanical Ventilation Nasal Cannula Oxygen Flow Rate 2 Fraction of Inspired Oxygen 07/04/24 10:07/04/24 10:07/04/24 12:00 Temperature 99.1 F 98.2 F Pulse Rate 81 85 80 Respiratory Rate 18 18 Blood Pressure 143/63 H 120/67 Pulse Oximetry 99 100 Oxygen Delivery Oxygen Flow Rate Fraction of Inspired Oxygen Intake/Output Intake/Output: Intake & Output 07/01/24 07/02/24 07/03/24 07/04/24 23:59 23:59 23:59 23:59 Intake Total 4109.0 3477.8667 2977.0 50 Output Total 385 636 8165 1100 Balance 3359.0 2677.8667 1327.0 -1050 Meds/Results Medications: Active Medications Generic Name Dose Route Start Last Admin Trade Name Freq PRN Reason Stop Dose Admin Dextrose 12.5 gm 07/01/24 01:32 Dextrose 50% 25 Gm/50 Ml Syringe IV PUSH PRN PRN Hypoglycemia Protocol Enoxaparin Sodium 40 mg 07/01/24 09:00 07/04/24 07:56 Enoxaparin 40 Mg/0.4 Ml Syringe SUB-Q 40 mg DAILY ROZ Administration Glucagon 1 mg 07/01/24 01:32 Glucagon For Inj 1 Mg Vial IM PRN PRN Hypoglycemia Protocol Glucose 15 gm 07/01/24 01:32 Glucose Oral Gel 15 Gm Of Glucse In 37.5 Gm Tube PO PRN PRN Hypoglycemia Protocol Hydrocortisone Sodium Succinate 50 mg 07/03/24 18:00 07/04/24 05:05 Hydrocortisone Sodium Succinate 100 Mg/2 Ml Vial IV PUSH 07/04/24 18:01 50 mg Q12H ROZ Administration Piperacillin/Tazobactam/Dextrose 3.375 gm in 50 mls @ 100 mls/hr 07/01/24 04:00 07/04/24 11:50 Zosyn 3.375 Gm/Ns 50 Ml IVPB 100 mls/hr Q6H ROZ Administration Dextrose 1,000 mls @ 100 mls/hr 07/01/24 01:32 Dextrose 5% 1,000 Ml IVPB PRN PRN Hypoglycemia Protocol Potassium Chloride 100 mls @ 25 mls/hr 07/04/24 12:00 07/04/24 12:00 Kcl 40 Meq/Water 100 Ml IVPB 07/04/24 15:59 25 mls/hr ONCE ONE Administration Insulin Aspart 2 - 5 units 07/01/24 06:00 07/04/24 11:31 Insulin Aspart (*Bkc) 100 Units/Ml SUB-Q Not Given Q6HR [facility] Protocol Levothyroxine Sodium 12.5 mcg 07/01/24 06:30 07/04/24 05:08 Levothyroxine Sodium Inj 100 Mcg/5 Ml Vial IV PUSH 12.5 mcg DAILY@0630 ROZ Administration Multi-Ingred Cream/Lotion/Oil/Oint 1 applic 07/01/24 09:00 07/04/24 07:57 Mineral Oil/White Petrolatum Ointment EACH EYE Not Given Q12HR [facility] Naloxone HCl 0.1 mg 07/01/24 01:15 Naloxone Hcl 0.4 Mg/Ml Vial IV PUSH Q2M PRN Opiate Reversal Ondansetron HCl 4 mg 07/01/24 01:15 Ondansetron Inj 4 Mg/2 Ml Vial IV PUSH Q4H PRN Nausea And Vomiting Pantoprazole Sodium 40 mg 07/01/24 09:00 07/04/24 07:56 Pantoprazole Sodium Iv 40 Mg Vial IV PUSH 40 mg Q12HR ROZ Administration Sodium Chloride 10 ml 07/01/24 06:00 07/04/24 05:08 Central Line Flush IV PUSH 10 ml Q8HR ROZ Administration Sodium Chloride 20 ml 07/01/24 02:34 Central Line Flush IV PUSH PRN PRN after blood draws Radiology Results: ITS Impressions Abdomen/Pelvis CT 06/30/24 20:18 IMPRESSION: 1. Air seen in the wall of the cecum and ascending colon with thickening in the ascending colon. Differential include infection with gas-forming organism versus ischemia versus connective tissue disease. Clinical correlation and further evaluation advised. No free air. Minimal free fluid seen around the liver. 2. Dilated small bowel loops in the distal ileum with transition zone seen in the terminal ileum area. Follow-up advised. 3. Bilateral basal atelectasis with left pleural effusion. 4. Cardiomegaly. 5. Slightly thickened wall of the bladder. Evaluation for cystitis advised Dr. Puckett was notified with the result of the patient at 8:40 PM on June 30, 2024. Chest X-Ray 07/04/24 06:09 Impression: Small bilateral pleural effusions with bibasilar pulmonary edema. Support tubes, as above. Labs Labs: Laboratory Results - last 24 hr 07/03/24 07/03/24 07/04/24 17:31 23:20 05:04 WBC 14.1 H RBC 2.91 L Hgb 9.2 L Hct 28.8 L MCV 99.0 MCH 31.6 MCHC 31.9 L RDW 13.6 Plt Count 127 L MPV 9.2 Immature Gran % (Auto) 0.9 H Neut % (Auto) 87.7 H Lymph % (Auto) 6.0 L Monroe % (Auto) 5.3 Eos % (Auto) 0.0 Baso % (Auto) 0.1 L Lymph # (Auto) 0.85 L Monroe # (Auto) 0.7 H Eos # (Auto) 0.0 Baso # (Auto) 0.0 Abs Immat Gran (auto) 0.13 H Absolute Neuts (auto) 12.4 H Absolute Nucleated RBC 0.000 Nucleated RBC % 0.0 Puncture Site ABG pH ABG pCO2 ABG pO2 ABG PO2/FiO2 Ratio ABG HCO3 ABG O2 Saturation ABG O2 Content ABG Base Excess A-a Gradient Oxyhemoglobin Carboxyhemoglobin Methemoglobin Reduced Hemoglobin Total Hemoglobin O2 Delivery Device O2 Liters/Min Minute Volume Vent Rate Vent Mode FiO2 Tidal Volume PEEP Peak Inspir Pressure Pressure Support Sodium 136 L Potassium 3.1 L Chloride 103 Carbon Dioxide 25 Anion Gap 8 BUN 21 H Creatinine 0.81 Estim Creat Clear Calc 68 Estimated GFR > 60 Glucose 98 POC Capillary Glucose 97 111 H Calcium 8.0 L Phosphorus 2.4 L Magnesium 2.3 Total Bilirubin 0.8 AST 17 ALT 8 Alkaline Phosphatase 37 L Total Protein 5.0 L Albumin 3.2 L 07/04/24 07/04/24 07/04/24 05:10 05:30 09:36 WBC RBC Hgb Hct MCV MCH MCHC RDW Plt Count MPV Immature Gran % (Auto) Neut % (Auto) Lymph % (Auto) Monroe % (Auto) Eos % (Auto) Baso % (Auto) Lymph # (Auto) Monroe # (Auto) Eos # (Auto) Baso # (Auto) Abs Immat Gran (auto) Absolute Neuts (auto) Absolute Nucleated RBC Nucleated RBC % Puncture Site Right radial Artline ABG pH 7.458 H 7.454 H ABG pCO2 32.4 L 34.1 L ABG pO2 82.5 93.9 ABG PO2/FiO2 Ratio 3.30 3.76 ABG HCO3 22.4 23.4 ABG O2 Saturation 96.7 97.5 ABG O2 Content 14.5 L 14.2 L ABG Base Excess -0.9 -0.2 A-a Gradient 57.3 43.9 Oxyhemoglobin 95.6 96.5 Carboxyhemoglobin 0.4 0.2 Methemoglobin 0.3 0.3 Reduced Hemoglobin 3.7 3.0 Total Hemoglobin 10.7 L 10.4 L O2 Delivery Device Ventilator Ventilator O2 Liters/Min Not Reportable Not Reportable Minute Volume Not Reportable Not Reportable Vent Rate 16 Not Reportable Vent Mode Cmv Pressure support FiO2 25 25 Tidal Volume 450 Not Reportable PEEP 5 5 Peak Inspir Pressure Not Reportable Not Reportable Pressure Support Not Reportable 8 Sodium Potassium Chloride Carbon Dioxide Anion Gap BUN Creatinine Estim Creat Clear Calc Estimated GFR Glucose POC Capillary Glucose 92 Calcium Phosphorus Magnesium Total Bilirubin AST ALT Alkaline Phosphatase Total Protein Albumin 07/04/24 11:20 WBC RBC Hgb Hct MCV MCH MCHC RDW Plt Count MPV Immature Gran % (Auto) Neut % (Auto) Lymph % (Auto) Monroe % (Auto) Eos % (Auto) Baso % (Auto) Lymph # (Auto) Monroe # (Auto) Eos # (Auto) Baso # (Auto) Abs Immat Gran (auto) Absolute Neuts (auto) Absolute Nucleated RBC Nucleated RBC % Puncture Site ABG pH ABG pCO2 ABG pO2 ABG PO2/FiO2 Ratio ABG HCO3 ABG O2 Saturation ABG O2 Content ABG Base Excess A-a Gradient Oxyhemoglobin Carboxyhemoglobin Methemoglobin Reduced Hemoglobin Total Hemoglobin O2 Delivery Device O2 Liters/Min Minute Volume Vent Rate Vent Mode FiO2 Tidal Volume PEEP Peak Inspir Pressure Pressure Support Sodium Potassium Chloride Carbon Dioxide Anion Gap BUN Creatinine Estim Creat Clear Calc Estimated GFR Glucose POC Capillary Glucose 93 Calcium Phosphorus Magnesium Total Bilirubin AST ALT Alkaline Phosphatase Total Protein Albumin
--- NOTE | 2024-07-04 13:04 | PCFNICU ---
ICU Rounding Note: Pt current nutrition is NPO. Last recorded weight is 102.5 kg,down from 111.8 kg on admit. Bowel Motility: +BM reported 07/03 Labs Reviewed:BUN 21, K 3.1, Alb 3.2 Meds Noted: Zosyn, Lovenox, Protonix. Skin: WNL Additional Notes: Patient remains NPO x 4 days. Spoke with surgery today, plans for swallow evaluation. If patient does not pass, tube feedings to start. Would recommend Vital AF 1.2 at 10-20 ml/hr. Flush 30 ml q 4 hours. Following daily in ICU rounds. Will monitor weight, labs, skin, diet orders, meds every Monday and Monday.
--- NOTE | 2024-07-04 15:17 | PCSTNOTE ---
Please refer to the Bedside Swallow Evaluation in the EMR. Please note, silent aspiration cannot be ruled out at bedside. The above pt was seen for a bedside swallow evaluation due to recent extubation this am. Intubation was x2-3 days according to RN. Pt is s/p right hemicolectomy on 07/01. Pt was sitting upright in a recliner at the bedside. NG tube present. Pt, his spouse & daughter (present ) denied h/o of dysphagia. Oral motor exam revealed normal labial and lingual ROM and strength; good natural dentition exhibited. Prior to testing, pt was coughing and self suctioning. Vocal quality was strong and clear. The pt was tested with controlled trials of thin liquids in 3 ml and 5 ml amounts, pudding in 1/2 then full tsp amounts, pieces of cracker, as well as uncontrolled trials of thin liquid via a straw. For all trials no oral stage difficulty or overt s/s of aspiration were exhibited. Impressions: functional swallowing ability Recommendations: regular diet with regular liquids; position upright with all oral intake, notify ST if further difficulty develops.
[2024-07-04] MEDS: ACETAMINOPHEN 325 MG TABLET 650 MG PO (20:05)
--- NOTE | 2024-07-04 20:53 | PC.NURSE ---
Patient to transfer to room 204. Notified Kimmy that patient will be moving.
--- NOTE | 2024-07-04 21:57 | PC.NURSE ---
This patient, Edison Burr, was transferred to [facility] [place] on 07/04/24 at 2155. Personal belongings sent with patient. Report given to Monae. Appropriate documentation sent with patient.
[2024-07-04 23:29] LABS: Glucose Point of Care 103 mg/dl (65-105)
[2024-07-05] VITALS (14 sets, daily range): BP systolic 112–124; BP diastolic 58–67; PULSE 69–82; RESP 16–18; TEMP 36.3–37.1; O2SAT 94–100
[2024-07-05] MEDS: PIPERACILLN/TAZ 3.375GM/NS50ML 3.375 GM/50 ML BAG IVPB (04:57)
[2024-07-05] MEDS: LEVOTHYROXINE SODIUM INJ 100 MCG/5 ML VIAL 12.5 MCG IV PUSH (05:05)
[2024-07-05] MEDS: CENTRAL LINE FLUSH 10 ML IV PUSH ×2 (05:05→15:39)
[2024-07-05 05:16] LABS: Basophils Percent Auto 0.1 % (0.2-1.2); Hematocrit 29.1 % (42.0-52.0); Immature Granulocyte Absolute 0.13 K/mm3 (0.00-0.031); Immature Granulocyte Percent A 1.5 % (0-0.5); Lymphocytes Absolute Auto 0.72 K/mm3 (0.9-3.2); Lymphocytes Percent Auto 8.1 % (18.3-44.2); Mean Corpuscular HGB Conc 30.9 g/dl (32-36); Mean Corpuscular Volume 100.3 fl (80-100); Mean Platelet Volume 8.7 fl (7.4-10.4); Monocytes Absolute Auto 0.6 K/mm3 (0.1-0.6); Neutrophils Absolute Auto 7.4 K/mm3 (1.3-6.7); Neutrophils Percent Auto 83.3 % (45.5-73.1); Platelet Count Result 124 k/mm3 (150-375); Red Cell Distribution Width 13.4 % (11.5-14.5); White Blood Count 8.9 K/mm3 (4.5-10.0)
[2024-07-05 05:28] LABS: Alanine Aminotransferase 8 U/L (6-50); Albumin Level 3.2 g/dL (3.5-5.1); Alkaline Phosphatase 34 U/L (38-126); Anion Gap 8 mmol/L (4-12); Aspartate Amino Transferase 13 U/L (17-59); Bilirubin,Total 0.8 mg/dL (0.2-1.3); Blood Urea Nitrogen 22 mg/dL (9-20); Carbon Dioxide 26 mmol/L (22-30); Chloride 104 mmol/L (98-107); Estimated CRCL calculation 73 ml/min; Estimated Glomerular Filt Rate > 60; Glucose 109 mg/dL (65-110); Magnesium 2.1 mg/dL (1.6-2.3); Phosphorus 3.1 mg/dL (2.5-4.5); Potassium 3.2 mmol/L (3.4-5.0); Sodium 138 mmol/L (137-145)
[2024-07-05] MEDS: PANTOPRAZOLE SODIUM IV 40 MG VIAL IV PUSH ×2 (09:40→20:17)
[2024-07-05] MEDS: ENOXAPARIN 40 MG/0.4 ML SYRINGE SUB-Q (09:40)
--- NOTE | 2024-07-05 11:26 | PCNFU ---
Nutrition Follow-Up Complete: Suboptimal Nutrition as related to mechanical vent as evidenced by NPO. Meet estimated nutritional needs. - progressing Goal: Pt current nutrition is Clear liquids. Nutrition recommendation: Advance diet as medically able Last recorded weight is 110.6 kg. Bowel Motility: +1 BM 07/04 Labs Reviewed: Hgb 9.0, Hct 29.1, Alb 3.2, K+ 3.2, BUN 22 Meds Noted: Protonix, zofran, flagyl Skin: No pressure. Additional Notes: S/p R hemicolectomy. Extubated 07/04, passed swallow and advanced to clear liquids per surgery. Diet advancement per surgery. Continue to monitor Will monitor weight, labs, skin, diet orders, meds every Monday and Monday.
[2024-07-05] MEDS: levoFLOXacin 750 MG TABLET PO (12:34)
--- NOTE | 2024-07-05 12:38 | PM.IMPN ---
Progress Note: A&P Assessment and Plan (1) Septic shock: Code(s): A41.9 - Sepsis, unspecified organism; R65.21 - Severe sepsis with septic shock Status: Acute Assessment and Plan: S/p Levophed, Blood cultures negative ECHO EF 60-65%, Paradoxical septum motion abnormality suggestive of bundle-branch block. Continue Abx (2) Respiratory failure: Qualifiers: Chronicity: acute Respiratory failure complication: unspecified whether with hypoxia or hypercapnia Qualified Code(s): J96.00 - Acute respiratory failure, unspecified whether with hypoxia or hypercapnia Code(s): J96.90 - Respiratory failure, unspecified, unspecified whether with hypoxia or hypercapnia Status: Acute Assessment and Plan: resolved,likely from fluid overload ECHO showed EF 60-65 monitor, on room air (3) Chronic atrial fibrillation with RVR: Code(s): I48.20 - Chronic atrial fibrillation, unspecified Status: Acute Assessment and Plan: Patient presented with AFib RVR, was given amiodarone bolus and started on amiodarone infusion -currently anticoagulation on hold, restart when cleared by Surgery -off amiodarone infusion, remains in AFib, rate controlled (4) Chronic anticoagulation: Code(s): 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 Continue to hold anticoagulation at this time due to high risk of bleeding -restart Anticoagulation when cleared by surgery (5) Acute ischemia of large intestine: Code(s): K55.039 - Acute (reversible) ischemia of large intestine, extent unspecified Status: Acute Assessment and Plan: Status post exploratory laparotomy and right hemicolectomy now on liquid diet, continue advancing per surgery (6) Peritonitis (acute) generalized: Code(s): K65.0 - Generalized (acute) peritonitis Status: Acute Assessment and Plan: See above (7) Electrolyte imbalance: Code(s): E87.8 - Other disorders of electrolyte and fluid balance, not elsewhere classified Status: Acute Assessment and Plan: Will replace potassium Plan Extremities edema is likely from fluid overload Started Lasix 20mg IV monitor closely DVT prophylaxis -Lovenox Stress ulcer prophylaxis -PPI Nutrition -on liquid diet Code Status -patient is DNR Subjective Date/time seen: 07/05/24 12:38 Interval history: Reason for consult: Acute respiratory failure, acute bowel ischemia septic shock status post ex lap and right hemicolectomy with ileocolonic anastomosis on 07/01/2024 07/04/2024: Patient seen and examined the ICU, remains intubated on CMV mode of ventilation, peep of 5, 25% FiO2. Off all sedation > 48 hours. Patient is more awake, eyes are open, nods to questions, follows simple commands. Currently afebrile, hemodynamically stable, adequate urine output in response to diuretics. Patient has been off amiodarone: In AFib, rate controlled Review of Systems Review of Systems: ROS unobtainable: Yes unobtainable due to endotracheal tube, unobtainable due to medical condition and unobtainable due to mental status Exam Narrative: General: Pt is intubated and on mechanical ventilation HEENT: Pupils are reactive, anisocoria - left surgical pupil larger than the right. Sclera is clear, ETT in Lungs/Chest: Trachea central Coarse BS B/L, few bibasilar crackles Cardiac: Irregularly irregular, bradycardia. Abdomen: Soft, hypoactive bowel sounds, tenderness to palpation as he grimaces, midline incision covered under dressing. 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 Neck: Other: Right IJ in place, No JVD, no lymphadenopathy, trachea midline Resp: Other: Coarse breath sounds bilaterally, no increased work of breathing Cardio: Other: Irregularly irregular, tachycardic rate in the low 100s to 110s, no murmur, no JVD GI: Other: Distended but soft laparoscopic incision with overlying dressing clean dry and intact, hypoactive bowel sounds : Other: Sneed catheter in place with small amount of dark yellow urine Skin: Other: 5-6 second cap refill, extremities are cool to touch, wound to the left heel that appears chronic, mottling to the extremities Neuro: Other: Nursing staff reports that the patient was pointing to the tube and trying to mimic pulling the tube out, patient was redirectable, pupillary abnormalities as mentioned above likely chronic Extrem: Other: No cyanosis, no clubbing, right radial art line in place Psych: Other: Unable to assess due to sedation Objective Data Vital Signs Vital Signs: Vital Signs - 24 hr 07/04/24 14:00 07/04/24 14:00 07/04/24 16:00 Temperature 98.8 F Pulse Rate 85 86 78 Respiratory Rate 17 Blood Pressure 107/62 Pulse Oximetry 100 Oxygen Delivery Oxygen Flow Rate Fraction of Inspired Oxygen 07/04/24 16:00 07/04/24 16:00 07/04/24 18:00 Temperature 98.2 F Pulse Rate 78 73 76 Respiratory Rate 19 18 17 Blood Pressure 122/61 113/55 L Pulse Oximetry 99 99 99 Oxygen Delivery Nasal Cannula Oxygen Flow Rate 1 Fraction of Inspired Oxygen 07/04/24 18:00 07/04/24 20:00 07/04/24 20:00 Temperature 98.2 F Pulse Rate 76 74 Respiratory Rate 18 Blood Pressure 113/60 Pulse Oximetry 99 98 Oxygen Delivery Room Air Oxygen Flow Rate Fraction of Inspired Oxygen 07/04/24 20:00 07/04/24 20:11 07/04/24 22:00 Temperature Pulse Rate 77 71 69 Respiratory Rate 17 Blood Pressure Pulse Oximetry 99 Oxygen Delivery Nasal Cannula Oxygen Flow Rate 1 Fraction of Inspired Oxygen 07/04/24 23:31 07/05/24 00:00 07/05/24 00:00 Temperature 99 F Pulse Rate 77 69 Respiratory Rate 16 Blood Pressure 121/73 Pulse Oximetry 98 Oxygen Delivery Room Air Oxygen Flow Rate Fraction of Inspired Oxygen 07/05/24 02:00 07/05/24 04:00 07/05/24 04:00 Temperature Pulse Rate 70 73 Respiratory Rate Blood Pressure Pulse Oximetry Oxygen Delivery Room Air Oxygen Flow Rate Fraction of Inspired Oxygen 07/05/24 04:00 07/05/24 06:00 07/05/24 07:41 Temperature 98.7 F 97.7 F Pulse Rate 74 76 77 Respiratory Rate 18 18 Blood Pressure 121/67 117/59 L Pulse Oximetry 100 94 Oxygen Delivery Oxygen Flow Rate Fraction of Inspired Oxygen 07/05/24 08:00 07/05/24 12:00 Temperature 97.8 F Pulse Rate 77 74 Respiratory Rate 18 18 Blood Pressure 119/58 L Pulse Oximetry 94 100 Oxygen Delivery Room Air Oxygen Flow Rate Fraction of Inspired Oxygen 25 Intake/Output Intake/Output: Intake & Output 07/02/24 07/03/24 07/04/24 07/05/24 23:59 23:59 23:59 23:59 Intake Total 3477.8667 2977.0 318 660 Output Total 800 1650 1850 250 Balance 2677.8667 1327.0 -1532 410 Meds/Results Medications: Active Medications Generic Name Dose Route Start Last Admin Trade Name Freq PRN Reason Stop Dose Admin Acetaminophen 650 mg 07/04/24 19:48 07/04/24 20:05 Acetaminophen 325 Mg Tablet PO 650 mg Q4H PRN Administration Mild Pain (1-3) or Fever Dextrose 12.5 gm 07/01/24 01:32 Dextrose 50% 25 Gm/50 Ml Syringe IV PUSH PRN PRN Hypoglycemia Protocol Enoxaparin Sodium 40 mg 07/01/24 09:00 07/05/24 09:40 Enoxaparin 40 Mg/0.4 Ml Syringe SUB-Q 40 mg DAILY ROZ Administration Glucagon 1 mg 07/01/24 01:32 Glucagon For Inj 1 Mg Vial IM PRN PRN Hypoglycemia Protocol Glucose 15 gm 07/01/24 01:32 Glucose Oral Gel 15 Gm Of Glucse In 37.5 Gm Tube PO PRN PRN Hypoglycemia Protocol Dextrose 1,000 mls @ 100 mls/hr 07/01/24 01:32 Dextrose 5% 1,000 Ml IVPB PRN PRN Hypoglycemia Protocol Levofloxacin 750 mg 07/05/24 12:00 07/05/24 12:34 Levofloxacin 750 Mg Tablet PO 07/10/24 09:01 750 mg DAILY ROZ Administration Levothyroxine Sodium 12.5 mcg 07/01/24 06:30 07/05/24 05:05 Levothyroxine Sodium Inj 100 Mcg/5 Ml Vial IV PUSH 12.5 mcg DAILY@0630 ROZ Administration Metronidazole 500 mg 07/05/24 14:00 Metronidazole 500 Mg Tablet PO 07/10/24 22:01 Q8HR ROZ Naloxone HCl 0.1 mg 07/01/24 01:15 Naloxone Hcl 0.4 Mg/Ml Vial IV PUSH Q2M PRN Opiate Reversal Ondansetron HCl 4 mg 07/01/24 01:15 Ondansetron Inj 4 Mg/2 Ml Vial IV PUSH Q4H PRN Nausea And Vomiting Pantoprazole Sodium 40 mg 07/01/24 09:00 07/05/24 09:40 Pantoprazole Sodium Iv 40 Mg Vial IV PUSH 40 mg Q12HR ROZ Administration Sodium Chloride 10 ml 07/01/24 06:00 07/05/24 05:05 Central Line Flush IV PUSH 10 ml Q8HR ROZ Administration Sodium Chloride 20 ml 07/01/24 02:34 Central Line Flush IV PUSH PRN PRN after blood draws Radiology Results: ITS Impressions Abdomen/Pelvis CT 06/30/24 20:18 IMPRESSION: 1. Air seen in the wall of the cecum and ascending colon with thickening in the ascending colon. Differential include infection with gas-forming organism versus ischemia versus connective tissue disease. Clinical correlation and further evaluation advised. No free air. Minimal free fluid seen around the liver. 2. Dilated small bowel loops in the distal ileum with transition zone seen in the terminal ileum area. Follow-up advised. 3. Bilateral basal atelectasis with left pleural effusion. 4. Cardiomegaly. 5. Slightly thickened wall of the bladder. Evaluation for cystitis advised Dr. Puckett was notified with the result of the patient at 8:40 PM on June 30, 2024. Chest X-Ray 07/04/24 06:09 Impression: Small bilateral pleural effusions with bibasilar pulmonary edema. Support tubes, as above. Labs Labs: Laboratory Results - last 24 hr 07/04/24 07/05/24 23:24 05:07 WBC 8.9 RBC 2.90 L Hgb 9.0 L Hct 29.1 L MCV 100.3 H MCH 31.0 MCHC 30.9 L RDW 13.4 Plt Count 124 L MPV 8.7 Immature Gran % (Auto) 1.5 H Neut % (Auto) 83.3 H Lymph % (Auto) 8.1 L [place] % (Auto) 7.0 Eos % (Auto) 0.0 Baso % (Auto) 0.1 L Lymph # (Auto) 0.72 L [place] # (Auto) 0.6 Eos # (Auto) 0.0 Baso # (Auto) 0.0 Abs Immat Gran (auto) 0.13 H Absolute Neuts (auto) 7.4 H Absolute Nucleated RBC 0.000 Nucleated RBC % 0.0 Sodium 138 Potassium 3.2 L Chloride 104 Carbon Dioxide 26 Anion Gap 8 BUN 22 H Creatinine 0.78 Estim Creat Clear Calc 73 Estimated GFR > 60 Glucose 109 POC Capillary Glucose 103 Calcium 8.0 L Phosphorus 3.1 Magnesium 2.1 Total Bilirubin 0.8 AST 13 L ALT 8 Alkaline Phosphatase 34 L Total Protein 5.0 L Albumin 3.2 L Quality VTE Prophylaxis VTE prophylaxis: pharmacologic ordered
--- NOTE | 2024-07-05 14:40 | P.PNGS_ITS ---
Progress Note: A&P Assessment and Plan (1) Acute ischemia of large intestine: Code(s): K55.039 - Acute (reversible) ischemia of large intestine, extent unspecified Status: Acute Assessment and Plan: * S/p right hemicolectomy. Bowel function returning. Advance to full liquids. * Increase activity * PT/OT ordered, up to the chair today (2) Peritonitis (acute) generalized: Code(s): K65.0 - Generalized (acute) peritonitis Status: Acute Assessment and Plan: * Antibiotics switched to PO. WBC normal (3) Septic shock: Code(s): A41.9 - Sepsis, unspecified organism; R65.21 - Severe sepsis with septic shock Status: Acute Assessment and Plan: * Secondary to acute bowel ischemia, s/p right hemicolectomy for source control. Patient extubated today and no longer on vasopressors. * Continue IV antibiotics and critical care management. (4) Atrial fibrillation: Code(s): I48.91 - Unspecified atrial fibrillation Status: Inactive Assessment and Plan: * Lovenox stopped. Eliquis resumed for this evening. Monitor H/H, platelets. Subjective Subjective Date/Time Seen: 07/05/24 14:40 Interval history: Bowels moving. Tolerating clear liquids. Pain controlled. Still very weak. Exam GI: Inspection: non-distended, incision (intact with derick) and obesity GI Palp: Yes Soft to palpation, No Tenderness to palpation present (GI), No Guarding due to palpation present (GI) and No Rebound tenderness present Auscultation: normal bowel sounds Objective Data Vital Signs Vital Signs: Vital Signs - 24 hr 07/04/24 16:00 07/04/24 16:00 07/04/24 16:00 Temperature Pulse Rate 78 78 73 Respiratory Rate 19 18 Blood Pressure 122/61 Pulse Oximetry 99 99 Oxygen Delivery Nasal Cannula Oxygen Flow Rate 1 Fraction of Inspired Oxygen 07/04/24 18:00 07/04/24 18:00 07/04/24 20:00 Temperature 98.2 F Pulse Rate 76 76 Respiratory Rate 17 Blood Pressure 113/55 L Pulse Oximetry 99 99 Oxygen Delivery Room Air Oxygen Flow Rate Fraction of Inspired Oxygen 07/04/24 20:00 07/04/24 20:00 07/04/24 20:11 Temperature 98.2 F Pulse Rate 74 77 71 Respiratory Rate 18 17 Blood Pressure 113/60 Pulse Oximetry 98 99 Oxygen Delivery Nasal Cannula Oxygen Flow Rate 1 Fraction of Inspired Oxygen 07/04/24 22:00 07/04/24 23:31 07/05/24 00:00 Temperature 99 F Pulse Rate 69 77 Respiratory Rate 16 Blood Pressure 121/73 Pulse Oximetry 98 Oxygen Delivery Room Air Oxygen Flow Rate Fraction of Inspired Oxygen 07/05/24 00:00 07/05/24 02:00 07/05/24 04:00 Temperature Pulse Rate 69 70 Respiratory Rate Blood Pressure Pulse Oximetry Oxygen Delivery Room Air Oxygen Flow Rate Fraction of Inspired Oxygen 07/05/24 04:00 07/05/24 04:00 07/05/24 06:00 Temperature 98.7 F Pulse Rate 73 74 76 Respiratory Rate 18 Blood Pressure 121/67 Pulse Oximetry 100 Oxygen Delivery Oxygen Flow Rate Fraction of Inspired Oxygen 07/05/24 07:41 07/05/24 08:00 07/05/24 12:00 Temperature 97.7 F 97.8 F Pulse Rate 77 77 74 Respiratory Rate 18 18 18 Blood Pressure 117/59 L 119/58 L Pulse Oximetry 94 94 100 Oxygen Delivery Room Air Oxygen Flow Rate Fraction of Inspired Oxygen 25 07/05/24 12:00 Temperature Pulse Rate 74 Respiratory Rate 18 Blood Pressure Pulse Oximetry 100 Oxygen Delivery Room Air Oxygen Flow Rate Fraction of Inspired Oxygen 25 Intake/Output Intake/Output: Intake & Output 07/02/24 07/03/24 07/04/24 07/05/24 23:59 23:59 23:59 23:59 Intake Total 3477.8667 2977.0 318 900 Output Total 800 1650 1850 250 Balance 2677.8667 1327.0 -1532 650 Meds/Results Medications: Active Medications Generic Name Dose Route Start Last Admin Trade Name Freq PRN Reason Stop Dose Admin Acetaminophen 650 mg 07/04/24 19:48 07/04/24 20:05 Acetaminophen 325 Mg Tablet PO 650 mg Q4H PRN Administration Mild Pain (1-3) or Fever Apixaban 2.5 mg 07/05/24 17:00 Apixaban 2.5 Mg Tablet PO BID ROZ Dextrose 12.5 gm 07/01/24 01:32 Dextrose 50% 25 Gm/50 Ml Syringe IV PUSH PRN PRN Hypoglycemia Protocol Glucagon 1 mg 07/01/24 01:32 Glucagon For Inj 1 Mg Vial IM PRN PRN Hypoglycemia Protocol Glucose 15 gm 07/01/24 01:32 Glucose Oral Gel 15 Gm Of Glucse In 37.5 Gm Tube PO PRN PRN Hypoglycemia Protocol Dextrose 1,000 mls @ 100 mls/hr 07/01/24 01:32 Dextrose 5% 1,000 Ml IVPB PRN PRN Hypoglycemia Protocol Levofloxacin 750 mg 07/05/24 12:00 07/05/24 12:34 Levofloxacin 750 Mg Tablet PO 07/10/24 09:01 750 mg DAILY ROZ Administration Levothyroxine Sodium 12.5 mcg 07/01/24 06:30 07/05/24 05:05 Levothyroxine Sodium Inj 100 Mcg/5 Ml Vial IV PUSH 12.5 mcg DAILY@0630 ROZ Administration Metronidazole 500 mg 07/05/24 14:00 Metronidazole 500 Mg Tablet PO 07/10/24 22:01 Q8HR ROZ Naloxone HCl 0.1 mg 07/01/24 01:15 Naloxone Hcl 0.4 Mg/Ml Vial IV PUSH Q2M PRN Opiate Reversal Ondansetron HCl 4 mg 07/01/24 01:15 Ondansetron Inj 4 Mg/2 Ml Vial IV PUSH Q4H PRN Nausea And Vomiting Pantoprazole Sodium 40 mg 07/01/24 09:00 07/05/24 09:40 Pantoprazole Sodium Iv 40 Mg Vial IV PUSH 40 mg Q12HR ROZ Administration Sodium Chloride 10 ml 07/01/24 06:00 07/05/24 05:05 Central Line Flush IV PUSH 10 ml Q8HR ROZ Administration Sodium Chloride 20 ml 07/01/24 02:34 Central Line Flush IV PUSH PRN PRN after blood draws Radiology Results: ITS Impressions Abdomen/Pelvis CT 06/30/24 20:18 IMPRESSION: 1. Air seen in the wall of the cecum and ascending colon with thickening in the ascending colon. Differential include infection with gas-forming organism versus ischemia versus connective tissue disease. Clinical correlation and further evaluation advised. No free air. Minimal free fluid seen around the liver. 2. Dilated small bowel loops in the distal ileum with transition zone seen in the terminal ileum area. Follow-up advised. 3. Bilateral basal atelectasis with left pleural effusion. 4. Cardiomegaly. 5. Slightly thickened wall of the bladder. Evaluation for cystitis advised Dr. Puckett was notified with the result of the patient at 8:40 PM on June 30, 2024. Chest X-Ray 07/04/24 06:09 Impression: Small bilateral pleural effusions with bibasilar pulmonary edema. Support tubes, as above. Labs Labs: Laboratory Results - last 24 hr 07/04/24 07/05/24 23:24 05:07 WBC 8.9 RBC 2.90 L Hgb 9.0 L Hct 29.1 L MCV 100.3 H MCH 31.0 MCHC 30.9 L RDW 13.4 Plt Count 124 L MPV 8.7 Immature Gran % (Auto) 1.5 H Neut % (Auto) 83.3 H Lymph % (Auto) 8.1 L [place] % (Auto) 7.0 Eos % (Auto) 0.0 Baso % (Auto) 0.1 L Lymph # (Auto) 0.72 L [place] # (Auto) 0.6 Eos # (Auto) 0.0 Baso # (Auto) 0.0 Abs Immat Gran (auto) 0.13 H Absolute Neuts (auto) 7.4 H Absolute Nucleated RBC 0.000 Nucleated RBC % 0.0 Sodium 138 Potassium 3.2 L Chloride 104 Carbon Dioxide 26 Anion Gap 8 BUN 22 H Creatinine 0.78 Estim Creat Clear Calc 73 Estimated GFR > 60 Glucose 109 POC Capillary Glucose 103 Calcium 8.0 L Phosphorus 3.1 Magnesium 2.1 Total Bilirubin 0.8 AST 13 L ALT 8 Alkaline Phosphatase 34 L Total Protein 5.0 L Albumin 3.2 L
[2024-07-05] MEDS: metroNIDAZOLE 500 MG TABLET PO ×2 (15:39→21:19)
[2024-07-05] MEDS: FUROSEMIDE INJ 40 MG/4 ML VIAL 20 MG IV PUSH (15:39)
--- NOTE | 2024-07-05 17:54 | PC.NURSE ---
pt transferred in to room 243 via bed, oriented to new room and environment, reviewed plan of care, placed on clinical research monitor per provider order
[2024-07-05] MEDS: APIXABAN 2.5 MG TABLET PO (20:17)
[2024-07-05] MEDS: ACETAMINOPHEN 325 MG TABLET 650 MG PO (20:17)
[2024-07-06] VITALS (12 sets, daily range): BP systolic 128–140; BP diastolic 66–78; PULSE 62–88; RESP 16–18; TEMP 36.5–36.8; O2SAT 96–99
[2024-07-06 05:38] LABS: Hematocrit 32.7 % (42.0-52.0); Hemoglobin 10.2 g/dL (14.0-18.0); Mean Corpuscular HGB Conc 31.2 g/dl (32-36); Mean Corpuscular Volume 99.4 fl (80-100); Mean Platelet Volume 9.3 fl (7.4-10.4); Platelet Count Result 143 k/mm3 (150-375); Red Blood Count 3.29 M/mm3 (4.6-6.20); Red Cell Distribution Width 13.2 % (11.5-14.5); White Blood Count 8.2 K/mm3 (4.5-10.0)
[2024-07-06 05:54] LABS: Alanine Aminotransferase 8 U/L (6-50); Albumin Level 3.3 g/dL (3.5-5.1); Alkaline Phosphatase 37 U/L (38-126); Anion Gap 8 mmol/L (4-12); Aspartate Amino Transferase 13 U/L (17-59); Bilirubin,Total 0.8 mg/dL (0.2-1.3); Blood Urea Nitrogen 17 mg/dL (9-20); Carbon Dioxide 29 mmol/L (22-30); Chloride 102 mmol/L (98-107); Estimated CRCL calculation 72 ml/min; Estimated Glomerular Filt Rate > 60; Glucose 80 mg/dL (65-110); Phosphorus 2.7 mg/dL (2.5-4.5); Potassium 2.9 mmol/L (3.4-5.0); Sodium 139 mmol/L (137-145)
[2024-07-06] MEDS: metroNIDAZOLE 500 MG TABLET PO ×3 (06:09→21:16)
[2024-07-06] MEDS: LEVOTHYROXINE SODIUM INJ 100 MCG/5 ML VIAL 12.5 MCG IV PUSH (06:09)
[2024-07-06] MEDS: APIXABAN 2.5 MG TABLET PO ×2 (09:00→17:13)
[2024-07-06] MEDS: PANTOPRAZOLE SODIUM IV 40 MG VIAL IV PUSH (09:00)
[2024-07-06] MEDS: levoFLOXacin 750 MG TABLET PO (09:00)
[2024-07-06] MEDS: ACETAMINOPHEN 325 MG TABLET 650 MG PO ×2 (09:02→20:13)
--- NOTE | 2024-07-06 12:42 | PM.IMPN ---
Progress Note: A&P Assessment and Plan (1) Septic shock: Code(s): A41.9 - Sepsis, unspecified organism; R65.21 - Severe sepsis with septic shock Status: Acute Assessment and Plan: S/p Levophed, Blood cultures negative ECHO EF 60-65%, Paradoxical septum motion abnormality suggestive of bundle-branch block. Continue Abx (2) Respiratory failure: Qualifiers: Chronicity: acute Respiratory failure complication: unspecified whether with hypoxia or hypercapnia Qualified Code(s): J96.00 - Acute respiratory failure, unspecified whether with hypoxia or hypercapnia Code(s): J96.90 - Respiratory failure, unspecified, unspecified whether with hypoxia or hypercapnia Status: Acute Assessment and Plan: resolved,likely from fluid overload ECHO showed EF 60-65 monitor, on room air (3) Chronic atrial fibrillation with RVR: Code(s): I48.20 - Chronic atrial fibrillation, unspecified Status: Acute Assessment and Plan: Patient presented with AFib RVR, was given amiodarone bolus and started on amiodarone infusion -currently anticoagulation on hold, restart when cleared by Surgery -off amiodarone infusion, remains in AFib, rate controlled (4) Chronic anticoagulation: Code(s): Z79.01 - technician terminal and repeater (current) use of anticoagulants Status: Acute Assessment and Plan: Patient was on Eliquis and received FFP for the surgery. Continue to hold anticoagulation at this time due to high risk of bleeding -restart Anticoagulation when cleared by surgery (5) Acute ischemia of large intestine: Code(s): K55.039 - Acute (reversible) ischemia of large intestine, extent unspecified Status: Acute Assessment and Plan: Status post exploratory laparotomy and right hemicolectomy now on liquid diet, continue advancing per surgery (6) Peritonitis (acute) generalized: Code(s): K65.0 - Generalized (acute) peritonitis Status: Acute Assessment and Plan: See above (7) Electrolyte imbalance: Code(s): E87.8 - Other disorders of electrolyte and fluid balance, not elsewhere classified Status: Acute Assessment and Plan: Will replace potassium Plan Extremities edema is likely from fluid overload Started Lasix 20mg IV monitor closely DVT prophylaxis -Lovenox Stress ulcer prophylaxis -PPI Nutrition -on liquid diet Code Status -patient is DNR Subjective Date/time seen: 07/06/24 12:42 Interval history: Comfortable at bedside surgery to advance diet Review of Systems Review of Systems: ROS unobtainable: Yes unobtainable due to endotracheal tube, unobtainable due to medical condition and unobtainable due to mental status Exam Narrative: General: Pt is intubated and on mechanical ventilation HEENT: Pupils are reactive, anisocoria - left surgical pupil larger than the right. Sclera is clear, ETT in Lungs/Chest: Trachea central Coarse BS B/L, few bibasilar crackles Cardiac: Irregularly irregular, bradycardia. Abdomen: Soft, hypoactive bowel sounds, tenderness to palpation as he grimaces, midline incision covered under dressing. 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 Neck: Other: Right IJ in place, No JVD, no lymphadenopathy, trachea midline Resp: Other: Coarse breath sounds bilaterally, no increased work of breathing Cardio: Other: Irregularly irregular, tachycardic rate in the low 100s to 110s, no murmur, no JVD GI: Other: Distended but soft laparoscopic incision with overlying dressing clean dry and intact, hypoactive bowel sounds : Other: Sneed catheter in place with small amount of dark yellow urine Skin: Other: 5-6 second cap refill, extremities are cool to touch, wound to the left heel that appears chronic, mottling to the extremities Neuro: Other: Nursing staff reports that the patient was pointing to the tube and trying to mimic pulling the tube out, patient was redirectable, pupillary abnormalities as mentioned above likely chronic Extrem: Other: No cyanosis, no clubbing, right radial art line in place Psych: Other: Unable to assess due to sedation Objective Data Vital Signs Vital Signs: Vital Signs - 24 hr 07/05/24 14:00 07/05/24 16:00 07/05/24 16:00 Temperature 98.1 F Pulse Rate 74 76 74 Respiratory Rate 18 Blood Pressure 123/62 Pulse Oximetry 95 Oxygen Delivery Fraction of Inspired Oxygen 07/05/24 17:45 07/05/24 17:50 07/05/24 20:15 Temperature 97.3 F L Pulse Rate 82 74 74 Respiratory Rate 18 18 Blood Pressure 112/61 Pulse Oximetry 99 99 Oxygen Delivery Room Air Fraction of Inspired Oxygen 07/05/24 21:35 07/06/24 00:00 07/06/24 00:03 Temperature 98.2 F Pulse Rate 74 74 71 Respiratory Rate 16 16 Blood Pressure 124/64 Pulse Oximetry 96 96 Oxygen Delivery Room Air Fraction of Inspired Oxygen 07/06/24 04:00 07/06/24 04:00 07/06/24 04:59 Temperature 97.9 F Pulse Rate 71 69 62 Respiratory Rate 16 18 Blood Pressure 139/70 Pulse Oximetry 96 97 Oxygen Delivery Room Air Fraction of Inspired Oxygen 07/06/24 08:10 07/06/24 11:15 Temperature 97.7 F Pulse Rate 80 Respiratory Rate 18 Blood Pressure 140/78 Pulse Oximetry 99 Oxygen Delivery Room Air Fraction of Inspired Oxygen Intake/Output Intake/Output: Intake & Output 07/03/24 07/04/24 07/05/24 07/06/24 23:59 23:59 23:59 23:59 Intake Total 2977.0 318 1100 590 Output Total 1650 1850 1250 650 Balance 1327.0 -1532 -150 -60 Meds/Results Medications: Active Medications Generic Name Dose Route Start Last Admin Trade Name Galloq PRN Reason Stop Dose Admin Acetaminophen 650 mg 07/04/24 19:48 07/06/24 09:02 Acetaminophen 325 Mg Tablet PO 650 mg Q4H PRN Administration Mild Pain (1-3) or Fever Apixaban 2.5 mg 07/05/24 17:00 07/06/24 09:00 Apixaban 2.5 Mg Tablet PO 2.5 mg BID ROZ Administration Dextrose 12.5 gm 07/01/24 01:32 Dextrose 50% 25 Gm/50 Ml Syringe IV PUSH PRN PRN Hypoglycemia Protocol Glucagon 1 mg 07/01/24 01:32 Glucagon For Inj 1 Mg Vial IM PRN PRN Hypoglycemia Protocol Glucose 15 gm 07/01/24 01:32 Glucose Oral Gel 15 Gm Of Glucse In 37.5 Gm Tube PO PRN PRN Hypoglycemia Protocol Dextrose 1,000 mls @ 100 mls/hr 07/01/24 01:32 Dextrose 5% 1,000 Ml IVPB PRN PRN Hypoglycemia Protocol Levofloxacin 750 mg 07/05/24 12:00 07/06/24 09:00 Levofloxacin 750 Mg Tablet PO 07/10/24 09:01 750 mg DAILY ROZ Administration Levothyroxine Sodium 12.5 mcg 07/01/24 06:30 07/06/24 06:09 Levothyroxine Sodium Inj 100 Mcg/5 Ml Vial IV PUSH 12.5 mcg DAILY@0630 ROZ Administration Metronidazole 500 mg 07/05/24 14:00 07/06/24 06:09 Metronidazole 500 Mg Tablet PO 07/10/24 22:01 500 mg Q8HR ROZ Administration Naloxone HCl 0.1 mg 07/01/24 01:15 Naloxone Hcl 0.4 Mg/Ml Vial IV PUSH Q2M PRN Opiate Reversal Ondansetron HCl 4 mg 07/01/24 01:15 Ondansetron Inj 4 Mg/2 Ml Vial IV PUSH Q4H PRN Nausea And Vomiting Pantoprazole Sodium 40 mg 07/01/24 09:00 07/06/24 09:00 Pantoprazole Sodium Iv 40 Mg Vial IV PUSH 40 mg Q12HR ROZ Administration Sodium Chloride 10 ml 07/01/24 06:00 07/06/24 06:09 Central Line Flush IV PUSH Not Given Q8HR ROZ Sodium Chloride 20 ml 07/01/24 02:34 Central Line Flush IV PUSH PRN PRN after blood draws Radiology Results: ITS Impressions Abdomen/Pelvis CT 06/30/24 20:18 IMPRESSION: 1. Air seen in the wall of the cecum and ascending colon with thickening in the ascending colon. Differential include infection with gas-forming organism versus ischemia versus connective tissue disease. Clinical correlation and further evaluation advised. No free air. Minimal free fluid seen around the liver. 2. Dilated small bowel loops in the distal ileum with transition zone seen in the terminal ileum area. Follow-up advised. 3. Bilateral basal atelectasis with left pleural effusion. 4. Cardiomegaly. 5. Slightly thickened wall of the bladder. Evaluation for cystitis advised Dr. Pukcett was notified with the result of the patient at 8:40 PM on June 30, 2024. Chest X-Ray 07/04/24 06:09 Impression: Small bilateral pleural effusions with bibasilar pulmonary edema. Support tubes, as above. Labs Labs: Laboratory Results - last 24 hr 07/06/24 04:46 WBC 8.2 RBC 3.29 L Hgb 10.2 L Hct 32.7 L MCV 99.4 MCH 31.0 MCHC 31.2 L RDW 13.2 Plt Count 143 L MPV 9.3 Sodium 139 Potassium 2.9 L Chloride 102 Carbon Dioxide 29 Anion Gap 8 BUN 17 Creatinine 0.79 Estim Creat Clear Calc 72 Estimated GFR > 60 Glucose 80 Calcium 8.0 L Phosphorus 2.7 Magnesium 2.0 Total Bilirubin 0.8 AST 13 L ALT 8 Alkaline Phosphatase 37 L Total Protein 6.0 L Albumin 3.3 L Quality VTE Prophylaxis VTE prophylaxis: pharmacologic ordered
--- NOTE | 2024-07-06 14:09 | P.PN_ITS ---
Progress Note: A&P Assessment and Plan (1) Acute ischemia of large intestine: Code(s): K55.039 - Acute (reversible) ischemia of large intestine, extent unspecified Status: Acute Assessment and Plan: Postop day 5 after a bowel resection for ischemic bowel. Bowel function has returned. Having bowel movements now. Tolerating full liquids. Was advanced to solid food this evening. If doing well will plan on discharge to [facility] tomorrow. Subjective Date/time seen: 07/06/24 14:09 Interval history: Patient seems to be doing well today. Clinically stable. He had a bowel movement this morning. Tolerated full liquids well. No significant abdominal pain. White blood count is normal. Exam GI: Other: Abdomen is soft and nondistended. Midline incision is healing well derick in place. No redness or drainage. Exam is benign. Objective Data Vital Signs Vital Signs: Vital Signs - 24 hr 07/05/24 16:00 07/05/24 16:00 07/05/24 17:45 Temperature 36.7 C Pulse Rate 76 74 82 Respiratory Rate 18 Blood Pressure 123/62 Pulse Oximetry 95 Oxygen Delivery Fraction of Inspired Oxygen 07/05/24 17:50 07/05/24 20:15 07/05/24 21:35 Temperature 36.3 C L 36.8 C Pulse Rate 74 74 74 Respiratory Rate 18 18 16 Blood Pressure 112/61 124/64 Pulse Oximetry 99 99 96 Oxygen Delivery Room Air Fraction of Inspired Oxygen 07/06/24 00:00 07/06/24 00:03 07/06/24 04:00 Temperature Pulse Rate 74 71 71 Respiratory Rate 16 16 Blood Pressure Pulse Oximetry 96 96 Oxygen Delivery Room Air Room Air Fraction of Inspired Oxygen 07/06/24 04:00 07/06/24 04:59 07/06/24 08:10 Temperature 36.6 C Pulse Rate 69 62 Respiratory Rate 18 Blood Pressure 139/70 Pulse Oximetry 97 Oxygen Delivery Room Air Fraction of Inspired Oxygen 07/06/24 11:15 Temperature 36.5 C Pulse Rate 80 Respiratory Rate 18 Blood Pressure 140/78 Pulse Oximetry 99 Oxygen Delivery Fraction of Inspired Oxygen Intake/Output Intake/Output: Intake & Output 07/03/24 07/04/24 07/05/24 07/06/24 23:59 23:59 23:59 23:59 Intake Total 2977.0 318 1100 920 Output Total 1650 3280 1250 650 Balance 1327.0 -1532 -150 270 Meds/Results Medications: Active Medications Generic Name Dose Route Start Last Admin Trade Name Freq PRN Reason Stop Dose Admin Acetaminophen 650 mg 07/04/24 19:48 07/06/24 09:02 Acetaminophen 325 Mg Tablet PO 650 mg Q4H PRN Administration Mild Pain (1-3) or Fever Apixaban 2.5 mg 07/05/24 17:00 07/06/24 09:00 Apixaban 2.5 Mg Tablet PO 2.5 mg BID ROZ Administration Dextrose 12.5 gm 07/01/24 01:32 Dextrose 50% 25 Gm/50 Ml Syringe IV PUSH PRN PRN Hypoglycemia Protocol Glucagon 1 mg 07/01/24 01:32 Glucagon For Inj 1 Mg Vial IM PRN PRN Hypoglycemia Protocol Glucose 15 gm 07/01/24 01:32 Glucose Oral Gel 15 Gm Of Glucse In 37.5 Gm Tube PO PRN PRN Hypoglycemia Protocol Dextrose 1,000 mls @ 100 mls/hr 07/01/24 01:32 Dextrose 5% 1,000 Ml IVPB PRN PRN Hypoglycemia Protocol Levofloxacin 750 mg 07/05/24 12:00 07/06/24 09:00 Levofloxacin 750 Mg Tablet PO 07/10/24 09:01 750 mg DAILY ROZ Administration Levothyroxine Sodium 12.5 mcg 07/01/24 06:30 07/06/24 06:09 Levothyroxine Sodium Inj 100 Mcg/5 Ml Vial IV PUSH 12.5 mcg DAILY@0630 ROZ Administration Metronidazole 500 mg 07/05/24 14:00 07/06/24 14:04 Metronidazole 500 Mg Tablet PO 07/10/24 22:01 500 mg Q8HR ROZ Administration Naloxone HCl 0.1 mg 07/01/24 01:15 Naloxone Hcl 0.4 Mg/Ml Vial IV PUSH Q2M PRN Opiate Reversal Ondansetron HCl 4 mg 07/01/24 01:15 Ondansetron Inj 4 Mg/2 Ml Vial IV PUSH Q4H PRN Nausea And Vomiting Pantoprazole Sodium 40 mg 07/01/24 09:00 07/06/24 09:00 Pantoprazole Sodium Iv 40 Mg Vial IV PUSH 40 mg Q12HR ROZ Administration Sodium Chloride 10 ml 07/01/24 06:00 07/06/24 06:09 Central Line Flush IV PUSH Not Given Q8HR ROZ Sodium Chloride 20 ml 07/01/24 02:34 Central Line Flush IV PUSH PRN PRN after blood draws Radiology Results: ITS Impressions Abdomen/Pelvis CT 06/30/24 20:18 IMPRESSION: 1. Air seen in the wall of the cecum and ascending colon with thickening in the ascending colon. Differential include infection with gas-forming organism versus ischemia versus connective tissue disease. Clinical correlation and further evaluation advised. No free air. Minimal free fluid seen around the liver. 2. Dilated small bowel loops in the distal ileum with transition zone seen in the terminal ileum area. Follow-up advised. 3. Bilateral basal atelectasis with left pleural effusion. 4. Cardiomegaly. 5. Slightly thickened wall of the bladder. Evaluation for cystitis advised Dr. Puckett was notified with the result of the patient at 8:40 PM on June 30, 2024. Chest X-Ray 07/04/24 06:09 Impression: Small bilateral pleural effusions with bibasilar pulmonary edema. Support tubes, as above. Labs Labs: Laboratory Results - last 24 hr 07/06/24 04:46 WBC 8.2 RBC 3.29 L Hgb 10.2 L Hct 32.7 L MCV 99.4 MCH 31.0 MCHC 31.2 L RDW 13.2 Plt Count 143 L MPV 9.3 Sodium 139 Potassium 2.9 L Chloride 102 Carbon Dioxide 29 Anion Gap 8 BUN 17 Creatinine 0.79 Estim Creat Clear Calc 72 Estimated GFR > 60 Glucose 80 Calcium 8.0 L Phosphorus 2.7 Magnesium 2.0 Total Bilirubin 0.8 AST 13 L ALT 8 Alkaline Phosphatase 37 L Total Protein 6.0 L Albumin 3.3 L
[2024-07-07] VITALS (7 sets, daily range): BP systolic 119–141; BP diastolic 62–72; PULSE 73–87; RESP 16; TEMP 36.4–36.7; O2SAT 94–99
[2024-07-07 05:20] LABS: Basophils Percent Auto 0.4 % (0.2-1.2); Eosinophils Absolute Auto 0.3 K/mm3 (0-0.3); Eosinophils Percent Auto 4.2 % (0-4.4); Hematocrit 30.8 % (42.0-52.0); Hemoglobin 9.7 g/dL (14.0-18.0); Immature Granulocyte Absolute 0.12 K/mm3 (0.00-0.031); Immature Granulocyte Percent A 1.5 % (0-0.5); Lymphocytes Absolute Auto 1.04 K/mm3 (0.9-3.2); Lymphocytes Percent Auto 12.9 % (18.3-44.2); Mean Corpuscular HGB Conc 31.5 g/dl (32-36); Mean Corpuscular Volume 98.4 fl (80-100); Mean Platelet Volume 9.1 fl (7.4-10.4); Monocytes Absolute Auto 0.9 K/mm3 (0.1-0.6); Monocytes Percent Auto 10.6 % (2.6-8.5); Neutrophils Absolute Auto 5.7 K/mm3 (1.3-6.7); Neutrophils Percent Auto 70.4 % (45.5-73.1); Platelet Count Result 157 k/mm3 (150-375); Red Blood Count 3.13 M/mm3 (4.6-6.20); Red Cell Distribution Width 13.3 % (11.5-14.5); White Blood Count 8.1 K/mm3 (4.5-10.0)
[2024-07-07 05:42] LABS: Alanine Aminotransferase 8 U/L (6-50); Alkaline Phosphatase 35 U/L (38-126); Anion Gap 7 mmol/L (4-12); Aspartate Amino Transferase 12 U/L (17-59); Bilirubin,Total 0.6 mg/dL (0.2-1.3); Blood Urea Nitrogen 11 mg/dL (9-20); Carbon Dioxide 27 mmol/L (22-30); Chloride 101 mmol/L (98-107); Estimated CRCL calculation 89 ml/min; Estimated Glomerular Filt Rate > 60; Glucose 90 mg/dL (65-110); Magnesium 1.9 mg/dL (1.6-2.3); Potassium 2.9 mmol/L (3.4-5.0); Sodium 135 mmol/L (137-145)
[2024-07-07] MEDS: metroNIDAZOLE 500 MG TABLET PO ×2 (05:42→13:18)
[2024-07-07] MEDS: LEVOTHYROXINE SODIUM INJ 100 MCG/5 ML VIAL 12.5 MCG IV PUSH (05:42)
[2024-07-07] MEDS: APIXABAN 2.5 MG TABLET PO ×2 (09:26→17:05)
[2024-07-07] MEDS: PANTOPRAZOLE 40 MG TABLET PO (09:26)
[2024-07-07] MEDS: levoFLOXacin 750 MG TABLET PO (09:26)
--- NOTE | 2024-07-07 09:30 | PM.IMPN ---
Progress Note: A&P Assessment and Plan (1) Septic shock: Code(s): A41.9 - Sepsis, unspecified organism; R65.21 - Severe sepsis with septic shock Status: Acute Assessment and Plan: S/p Levophed, Blood cultures negative ECHO EF 60-65%, Paradoxical septum motion abnormality suggestive of bundle-branch block. Continue Abx (2) Respiratory failure: Qualifiers: Chronicity: acute Respiratory failure complication: unspecified whether with hypoxia or hypercapnia Qualified Code(s): J96.00 - Acute respiratory failure, unspecified whether with hypoxia or hypercapnia Code(s): J96.90 - Respiratory failure, unspecified, unspecified whether with hypoxia or hypercapnia Status: Acute Assessment and Plan: resolved,likely from fluid overload ECHO showed EF 60-65 monitor, on room air (3) Chronic atrial fibrillation with RVR: Code(s): I48.20 - Chronic atrial fibrillation, unspecified Status: Acute Assessment and Plan: Patient presented with AFib RVR, was given amiodarone bolus and started on amiodarone infusion -currently anticoagulation on hold, restart when cleared by Surgery -off amiodarone infusion, remains in AFib, rate controlled (4) Chronic anticoagulation: Code(s): Z79.01 - adjunct faculty for medical terminology (current) use of anticoagulants Status: Acute Assessment and Plan: Patient was on Eliquis and received FFP for the surgery. Continue to hold anticoagulation at this time due to high risk of bleeding -restart Anticoagulation when cleared by surgery (5) Acute ischemia of large intestine: Code(s): K55.039 - Acute (reversible) ischemia of large intestine, extent unspecified Status: Acute Assessment and Plan: Status post exploratory laparotomy and right hemicolectomy now on liquid diet, continue advancing per surgery (6) Peritonitis (acute) generalized: Code(s): K65.0 - Generalized (acute) peritonitis Status: Acute Assessment and Plan: See above (7) Electrolyte imbalance: Code(s): E87.8 - Other disorders of electrolyte and fluid balance, not elsewhere classified Status: Acute Assessment and Plan: Will replace potassium Plan Extremities edema is likely from fluid overload s/p lasix monitor closely DVT prophylaxis -Lovenox Stress ulcer prophylaxis -PPI Nutrition -on liquid diet Code Status -patient is DNR Subjective Date/time seen: 07/07/24 09:30 Interval history: Comfortable at bedside and tolerating diet Awaiting ins AU[facility] for discharge Review of Systems Review of Systems: ROS unobtainable: Yes unobtainable due to endotracheal tube, unobtainable due to medical condition and unobtainable due to mental status Exam Narrative: General: Pt is intubated and on mechanical ventilation HEENT: Pupils are reactive, anisocoria - left surgical pupil larger than the right. Sclera is clear, ETT in Lungs/Chest: Trachea central Coarse BS B/L, few bibasilar crackles Cardiac: Irregularly irregular, bradycardia. Abdomen: Soft, hypoactive bowel sounds, tenderness to palpation as he grimaces, midline incision covered under dressing. 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 Neck: Other: Right IJ in place, No JVD, no lymphadenopathy, trachea midline Resp: Other: Coarse breath sounds bilaterally, no increased work of breathing Cardio: Other: Irregularly irregular, tachycardic rate in the low 100s to 110s, no murmur, no JVD GI: Other: Distended but soft laparoscopic incision with overlying dressing clean dry and intact, hypoactive bowel sounds : Other: Sneed catheter in place with small amount of dark yellow urine Skin: Other: 5-6 second cap refill, extremities are cool to touch, wound to the left heel that appears chronic, mottling to the extremities Neuro: Other: Nursing staff reports that the patient was pointing to the tube and trying to mimic pulling the tube out, patient was redirectable, pupillary abnormalities as mentioned above likely chronic Extrem: Other: No cyanosis, no clubbing, right radial art line in place Psych: Other: Unable to assess due to sedation Objective Data Vital Signs Vital Signs: Vital Signs - 24 hr 07/06/24 11:15 07/06/24 12:00 07/06/24 14:04 Temperature 97.7 F 97.9 F Pulse Rate 80 88 80 Respiratory Rate 18 18 Blood Pressure 140/78 131/68 Pulse Oximetry 99 98 Oxygen Delivery Fraction of Inspired Oxygen 07/06/24 16:00 07/06/24 18:25 07/06/24 20:00 Temperature 97.7 F 98.3 F Pulse Rate 85 76 85 Respiratory Rate 18 16 Blood Pressure 128/66 138/77 Pulse Oximetry 97 97 Oxygen Delivery Fraction of Inspired Oxygen 07/06/24 20:10 07/06/24 20:10 07/07/24 00:00 Temperature 97.8 F Pulse Rate 85 79 77 Respiratory Rate 16 16 Blood Pressure 120/71 Pulse Oximetry 97 94 Oxygen Delivery Room Air Fraction of Inspired Oxygen 07/07/24 00:00 07/07/24 04:00 07/07/24 04:00 Temperature 98.0 F Pulse Rate 74 73 83 Respiratory Rate 16 Blood Pressure 119/62 Pulse Oximetry 99 Oxygen Delivery Fraction of Inspired Oxygen Intake/Output Intake/Output: Intake & Output 07/04/24 07/05/24 07/06/24 07/07/24 23:59 23:59 23:59 23:59 Intake Total 318 1100 1710 Output Total 1850 1250 1001 400 [employer] [facility] [employer] [facility] -[phone] Meds/Results Medications: Active Medications Generic Name Dose Route Start Last Admin Trade Name Freq PRN Reason Stop Dose Admin Acetaminophen 650 mg 07/04/24 19:48 07/06/24 20:13 Acetaminophen 325 Mg Tablet PO 650 mg Q4H PRN Administration Mild Pain (1-3) or Fever Apixaban 2.5 mg 07/05/24 17:00 07/07/24 09:26 Apixaban 2.5 Mg Tablet PO 2.5 mg BID ROZ Administration Dextrose 12.5 gm 07/01/24 01:32 Dextrose 50% 25 Gm/50 Ml Syringe IV PUSH PRN PRN Hypoglycemia Protocol Glucagon 1 mg 07/01/24 01:32 Glucagon For Inj 1 Mg Vial IM PRN PRN Hypoglycemia Protocol Glucose 15 gm 07/01/24 01:32 Glucose Oral Gel 15 Gm Of Glucse In 37.5 Gm Tube PO PRN PRN Hypoglycemia Protocol Dextrose 1,000 mls @ 100 mls/hr 07/01/24 01:32 Dextrose 5% 1,000 Ml IVPB PRN PRN Hypoglycemia Protocol Levofloxacin 750 mg 07/05/24 12:00 07/07/24 09:26 Levofloxacin 750 Mg Tablet PO 07/10/24 09:01 750 mg DAILY ROZ Administration Levothyroxine Sodium 12.5 mcg 07/01/24 06:30 07/07/24 05:42 Levothyroxine Sodium Inj 100 Mcg/5 Ml Vial IV PUSH 12.5 mcg DAILY@0630 ROZ Administration Metronidazole 500 mg 07/05/24 14:00 07/07/24 05:42 Metronidazole 500 Mg Tablet PO 07/10/24 22:01 500 mg Q8HR ROZ Administration Naloxone HCl 0.1 mg 07/01/24 01:15 Naloxone Hcl 0.4 Mg/Ml Vial IV PUSH Q2M PRN Opiate Reversal Ondansetron HCl 4 mg 07/01/24 01:15 Ondansetron Inj 4 Mg/2 Ml Vial IV PUSH Q4H PRN Nausea And Vomiting Pantoprazole Sodium 40 mg 07/07/24 09:00 07/07/24 09:26 Pantoprazole 40 Mg Tablet PO 40 mg QAM ROZ Administration Sodium Chloride 10 ml 07/01/24 06:00 07/07/24 05:11 Central Line Flush IV PUSH Not Given Q8HR ROZ Sodium Chloride 20 ml 07/01/24 02:34 Central Line Flush IV PUSH PRN PRN after blood draws Radiology Results: ITS Impressions Abdomen/Pelvis CT 06/30/24 20:18 IMPRESSION: 1. Air seen in the wall of the cecum and ascending colon with thickening in the ascending colon. Differential include infection with gas-forming organism versus ischemia versus connective tissue disease. Clinical correlation and further evaluation advised. No free air. Minimal free fluid seen around the liver. 2. Dilated small bowel loops in the distal ileum with transition zone seen in the terminal ileum area. Follow-up advised. 3. Bilateral basal atelectasis with left pleural effusion. 4. Cardiomegaly. 5. Slightly thickened wall of the bladder. Evaluation for cystitis advised Dr. Puckett was notified with the result of the patient at 8:40 PM on June 30, 2024. Chest X-Ray 07/04/24 06:09 Impression: Small bilateral pleural effusions with bibasilar pulmonary edema. Support tubes, as above. Labs Labs: Laboratory Results - last 24 hr 07/07/24 04:42 WBC 8.1 RBC 3.13 L Hgb 9.7 L Hct 30.8 L MCV 98.4 MCH 31.0 MCHC 31.5 L RDW 13.3 Plt Count 157 MPV 9.1 Immature Gran % (Auto) 1.5 H Neut % (Auto) 70.4 Lymph % (Auto) 12.9 L Garfield % (Auto) 10.6 H Eos % (Auto) 4.2 Baso % (Auto) 0.4 Lymph # (Auto) 1.04 [place]field # (Auto) 0.9 H Eos # (Auto) 0.3 Baso # (Auto) 0.0 Abs Immat Gran (auto) 0.12 H Absolute Neuts (auto) 5.7 Absolute Nucleated RBC 0.000 Nucleated RBC % 0.0 Sodium 135 L Potassium 2.9 L Chloride 101 Carbon Dioxide 27 Anion Gap 7 BUN 11 D Creatinine 0.63 L Estim Creat Clear Calc 89 Estimated GFR > 60 Glucose 90 Calcium 8.0 L Magnesium 1.9 Total Bilirubin 0.6 AST 12 L ALT 8 Alkaline Phosphatase 35 L Total Protein 5.0 L Albumin 3.0 L Quality VTE Prophylaxis VTE prophylaxis: pharmacologic ordered
[2024-07-07] MEDS: FUROSEMIDE INJ 40 MG/4 ML VIAL 20 MG IV PUSH (09:38)
--- NOTE | 2024-07-07 11:10 | WPDPN ---
Progress Note: A&P Assessment and Plan (1) Peritonitis (acute) generalized: Code(s): K65.0 - Generalized (acute) peritonitis Status: Acute Assessment and Plan: Postop day 5 after bowel resection for ischemic bowel. He is doing well now. Tolerating regular food and having bowel movements. He can be discharged to his ago nursing facility today. He can resume all his previous home medications to include all of his anticoagulation medications. Follow-up see Dr. Milligan in 7 to 10 days for staple removal. Subjective Date/time seen: 07/07/24 11:10 Interval history: Postop day 4 after bowel resection for necrotic bowel. He is doing well today. Had more bowel movements last night and today. Tolerating regular solid food. Pain is minimal. White blood count is normal. Exam GI: Other: Abdomen is soft and nondistended. Minimal tenderness to palpation around the midline incision. The incision is clean and dry without any drainage in redness. [place] are in place. Objective Data Vital Signs Vital Signs: Vital Signs - 24 hr 07/06/24 11:15 07/06/24 12:00 07/06/24 14:04 Temperature 36.5 C 36.6 C Pulse Rate 80 88 80 Respiratory Rate 18 18 Blood Pressure 140/78 131/68 Pulse Oximetry 99 98 Oxygen Delivery Fraction of Inspired Oxygen 07/06/24 16:00 07/06/24 18:25 07/06/24 20:00 Temperature 36.5 C 36.8 C Pulse Rate 85 76 85 Respiratory Rate 18 16 Blood Pressure 128/66 138/77 Pulse Oximetry 97 97 Oxygen Delivery Fraction of Inspired Oxygen 07/06/24 20:10 07/06/24 20:10 07/07/24 00:00 Temperature 36.6 C Pulse Rate 85 79 77 Respiratory Rate 16 16 Blood Pressure 120/71 Pulse Oximetry 97 94 Oxygen Delivery Room Air Fraction of Inspired Oxygen 07/07/24 00:00 07/07/24 04:00 07/07/24 04:00 Temperature 36.7 C Pulse Rate 74 73 83 Respiratory Rate 16 Blood Pressure 119/62 Pulse Oximetry 99 Oxygen Delivery Fraction of Inspired Oxygen 07/07/24 08:00 07/07/24 09:30 Temperature Pulse Rate 85 Respiratory Rate Blood Pressure Pulse Oximetry Oxygen Delivery Room Air Fraction of Inspired Oxygen Intake/Output Intake/Output: Intake & Output 07/04/24 07/05/24 07/06/24 07/07/24 23:59 23:59 23:59 23:59 Intake Total 318 1100 1710 240 Output Total 1850 1250 1001 400 Balance -1532 150 709 160 Meds/Results Medications: Active Medications Generic Name Dose Route Start Last Admin Trade Name Freq PRN Reason Stop Dose Admin Acetaminophen 650 mg 07/04/24 19:48 07/06/24 20:13 Acetaminophen 325 Mg Tablet PO 650 mg Q4H PRN Administration Mild Pain (1-3) or Fever Apixaban 2.5 mg 07/05/24 17:00 07/07/24 09:26 Apixaban 2.5 Mg Tablet PO 2.5 mg BID ROZ Administration Dextrose 12.5 gm 07/01/24 01:32 Dextrose 50% 25 Gm/50 Ml Syringe IV PUSH PRN PRN Hypoglycemia Protocol Glucagon 1 mg 07/01/24 01:32 Glucagon For Inj 1 Mg Vial IM PRN PRN Hypoglycemia Protocol Glucose 15 gm 07/01/24 01:32 Glucose Oral Gel 15 Gm Of Glucse In 37.5 Gm Tube PO PRN PRN Hypoglycemia Protocol Dextrose 1,000 mls @ 100 mls/hr 07/01/24 01:32 Dextrose 5% 1,000 Ml IVPB PRN PRN Hypoglycemia Protocol Levofloxacin 750 mg 07/05/24 12:00 07/07/24 09:26 Levofloxacin 750 Mg Tablet PO 07/10/24 09:01 750 mg DAILY ROZ Administration Levothyroxine Sodium 12.5 mcg 07/01/24 06:30 07/07/24 05:42 Levothyroxine Sodium Inj 100 Mcg/5 Ml Vial IV PUSH 12.5 mcg DAILY@0630 ROZ Administration Metronidazole 500 mg 07/05/24 14:00 07/07/24 05:42 Metronidazole 500 Mg Tablet PO 07/10/24 22:01 500 mg Q8HR ROZ Administration Naloxone HCl 0.1 mg 07/01/24 01:15 Naloxone Hcl 0.4 Mg/Ml Vial IV PUSH Q2M PRN Opiate Reversal Ondansetron HCl 4 mg 07/01/24 01:15 Ondansetron Inj 4 Mg/2 Ml Vial IV PUSH Q4H PRN Nausea And Vomiting Pantoprazole Sodium 40 mg 07/07/24 09:00 07/07/24 09:26 Pantoprazole 40 Mg Tablet PO 40 mg QAM ROZ Administration Sodium Chloride 10 ml 07/01/24 06:00 07/07/24 05:11 Central Line Flush IV PUSH Not Given Q8HR ROZ Sodium Chloride 20 ml 07/01/24 02:34 Central Line Flush IV PUSH PRN PRN after blood draws Radiology Results: ITS Impressions Abdomen/Pelvis CT 06/30/24 20:18 IMPRESSION: 1. Air seen in the wall of the cecum and ascending colon with thickening in the ascending colon. Differential include infection with gas-forming organism versus ischemia versus connective tissue disease. Clinical correlation and further evaluation advised. No free air. Minimal free fluid seen around the liver. 2. Dilated small bowel loops in the distal ileum with transition zone seen in the terminal ileum area. Follow-up advised. 3. Bilateral basal atelectasis with left pleural effusion. 4. Cardiomegaly. 5. Slightly thickened wall of the bladder. Evaluation for cystitis advised Dr. Puckett was notified with the result of the patient at 8:40 PM on June 30, 2024. Chest X-Ray 07/04/24 06:09 Impression: Small bilateral pleural effusions with bibasilar pulmonary edema. Support tubes, as above. Labs Labs: Laboratory Results - last 24 hr 07/07/24 04:42 WBC 8.1 RBC 3.13 L Hgb 9.7 L Hct 30.8 L MCV 98.4 MCH 31.0 MCHC 31.5 L RDW 13.3 Plt Count 157 MPV 9.1 Immature Gran % (Auto) 1.5 H Neut % (Auto) 70.4 Lymph % (Auto) 12.9 L Mcpherson % (Auto) 10.6 H Eos % (Auto) 4.2 Baso % (Auto) 0.4 Lymph # (Auto) 1.04 Mcpherson # (Auto) 0.9 H Eos # (Auto) 0.3 Baso # (Auto) 0.0 Abs Immat Gran (auto) 0.12 H Absolute Neuts (auto) 5.7 Absolute Nucleated RBC 0.000 Nucleated RBC % 0.0 Sodium 135 L Potassium 2.9 L Chloride 101 Carbon Dioxide 27 Anion Gap 7 BUN 11 D Creatinine 0.63 L Estim Creat Clear Calc 89 Estimated GFR > 60 Glucose 90 Calcium 8.0 L Magnesium 1.9 Total Bilirubin 0.6 AST 12 L ALT 8 Alkaline Phosphatase 35 L Total Protein 5.0 L Albumin 3.0 L
--- OUTSIDE RECORDS SUMMARY | 2024-07-08 10:23 | XMS_ITS ---
Author Organization [facility] Address [address] [facility] [place] [address] [place] [address] Care Team Providers Care Range Ecologist Name Role Phone Antelmo Aguilar Primary Care Provider HITESH Severino Unavailable [phone] REASON FOR VISIT 3-4 Month Follow up Encounters Encounter Location Date Provider Diagnosis [address] [id number] 12/18/2023 HITESH HUYNH Plan Of Treatment No Information Progress Notes * Edison CADETDOB:1935 (89 yo M)Acc No.[id number]:12/18/2023 Patient: Edison PHILLIPS Provider: Jennifer Huynh MD :1935 A ge:88 Y S ex:Male Date:12/18/2023 Address:[address] [facility] Pcp:Antelmo Aguilar Subjective: * Chief Complaints: * 1 . 3-4 Month Follow up. * Medical History: Objective: * Vitals: Assessment: Plan: * Treatment: * * Electronic signature of PATRICK HUYNH MD on 07/08/2024 at 10:23 AM CDT Sign off status: Pending * Provider: Jennifer Huynh MD Date: 02/16/2023 Generated for Rebekah perla/Manuela/eTmee on: 0 07/08/2024 10:23 AM CDT
--- OUTSIDE RECORDS SUMMARY | 2024-07-08 10:23 | XMS_ITS | Encounter Summary ---
Author Organization [facility] Address [address] [place] [address] Care Team Providers Care Ore Dryer Name Role Phone Wilbert Bucio MD Unavailable [phone] Gabriel Hand MD Unavailable [phone] Heron Wiggins MD Unavailable [phone] Jw Pascual MD Unavailable [phone] Antelmo Aguilar MD Primary Care Provider [phone] Encounter Details Date Type Department Care Team (Late st Contact Info) Description 07/03/2024 Orders Only [facility] Primary Care at [address] [address] Gian Doan MD [address] [place] [id number] Social History Tobacco Use Types Packs/Day Years Used Date Smoking Tobacco: Former OASIS D0700: Social Isolation Answer Da te [...] materials from doctor or pharmacy Never 12/14/2023 [facility] Utilities Answer Date Recorded In the past [...] often do you attend chur ch or scientologist services? Never 06/24/2024 Do you belong to [...] any time in the past 12 m [facility], were you homeless or living in a prison (including now)? No 06/24/2024 Personal Safety Answer Date Recorded Have you ever been in or are you currently in a harmful physical or emotional relationship or is someone making you feel afraid or unsafe? 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 Gender Identity Male 09/02/2021 11:12 AM CDT Sexual Orientation Not on file documented as of this encounter Plan of Treatment Not on file documented as of this encounter Procedures Procedure Name Priority Date/Time Associated Diagnosis Comments XR CHEST 1 VIEW Schedule Routine, Read Routine (OP Routine) 07/01/2024 11:28 AM CDT documented in this encounter Results * XR Chest 1 View (07/01/2024 11:28 AM CDT) Anatomical Region Laterality Modality Body, Chest N/A Radiographic Ella ging us Gian Doan MD IMG XR PROCEDURES Final Result documented in this encounter Visit Diagnoses Not on filedocumented in this encounter Care Teams Ore Dryer Relationship Specialty Start Date End Date Antelmo Aguilar MD [address] [facility] [address] [place] [address] PCP - General Family Medicine 06/23/24 Wilbert Bucio MD Consulting Physician Nephrology 01/06/21 Gabriel Hand MD [address] [place] [address] [place] [address] Consulting Physician Ophthalmology 01/06/21 Heron Wiggins MD [address] [place] [address] Consulting Physician Orthopedic Surgery 01/06/21 Jw Pascual MD [address] [address] Cardiology 09/02/21 documented as of this encounter
--- OUTSIDE RECORDS SUMMARY | 2024-07-08 10:24 | XMS_ITS | Patient Health Record ---
Author Organization [facility] Address [address] [facility] [address] [place] [address] Care Team Providers Care Size Stamper Name Role Phone Lauren Antelmo Primary Care Provider HITESH Severino Unavailable [phone] Allergies No Known Allergies Reason For Referral [...] Status Risk Notes Problem Paroxysmal atrial fibrillation (207026600) Paroxysmal atrial fibrillation (I48.0) Active confirmed Problem Lymphedema (468579311) Lymphedema, not elsewhere classified (I89.0) Active confirmed Problem Skin ulcer of calf (115984794) 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 Problem Skin ulcer of calf (953838180) Non-pressure chronic ulcer of left calf with 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) Active confirmed Problem Varicose veins of leg with pain, 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 Encounters Encounter Location Date Provider Diagnosis [address] [id number] 12/18/2023 HITESH HUYNH Plan Of Treatment No Information Insurance Providers Payer Name Payer Address Payer Phone Subscriber Number Group Number Insured Name Patient Relationship to Insured Coverage Start Date Coverage End Date [facility] [address] [address] [place] [address] [phone] [id number] Edison Burr Self - patient is the insured Medical (General) History Medical History History ICD Code Heart attack HTN Arthritis Depression Kidney Disease Surgical History Surgery Date(Month/Year)
--- OUTSIDE RECORDS SUMMARY | 2024-07-08 10:24 | XMS_ITS | Referral Summary ---
Author Organization [facility] [address] Address [address] [place] [id number] Care Team Providers Care Property And Equipment Clerk Name Role Phone Wilbert Bucio MD Unavailable [phone] Gabriel Hand MD Unavailable [phone] Heron Wiggins MD Unavailable [phone] Jw Pascual MD Unavailable [phone] Antelmo Aguilar MD Primary Care Provider [phone] Encounters Date Type Department Care Team Description 07/03/2024 Orders Only [facility] Medical [facility] Primary Care at [address] [address] Gian Doan MD 06/24/2024 7:00 PM CDT - 06/24/2024 11:59 PM CDT Hospital Encounter [facility] Emergency, Room R Discharge Disposition: Discharge to home or self care 06/23/2024 6:08 AM CDT - 06/24/2024 7:15 PM CDT Hospital Encounter [facility] Acute Medicine [address] [place] [address] Néstor Benitez MD Nikolic, Jelena, MD UGIB (upper gastrointestinal bleed) (Primary Dx); Esophagitis; Coffee ground emesis; Nausea and vomiting, unspecified vomiting type; Abdominal bloating Discharge Disposition: Discharge to SNF 04/25/2024 1:20 PM CDT Ancillary Procedure [facility] Medical Group Imaging at [address] [address] 04/25/2024 1:15 PM CDT Ancillary Procedure [facility] Imaging at [address] [address] Left rotator cuff tear arthropathy 04/25/[address] [facility] Gastroenterology at [address] [place] [address] Martha Umanzor 04/25/2024 1:00 PM CDT Office Visit [facility] Orthopedic and Sports Medicine [address] [place] [phone] Macey Cota PA Primary osteoarthritis of left knee (Primary Dx); Left rotator cuff tear arthropathy 04/19/2024 Telephone [facility] Orthopedics and Sports Medicine [address] [place] [address] [address] [place] [address] Macey Cota PA 04/08/2024 10:00 AM EYEGLASS FRAMES POLISHER Office Visit 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 Assessment & Plan (02/25/2022 2:26 PM EYEGLASS FRAMES POLISHER): Silvadene to wound daily after cleansing (OTC wound cleanser). Change dressings daily Keflex x 1 week Don't apply the silvadene until steris slough (likely by Monday) Start antibiotic today Xray today Muscle weakness (generalized) 10/05/2021 Hospital discharge follow-up 09/30/2021 Assessment & Plan (10/01/2021 5:31 PM CDT): I have reviewed the available outside hospital record, medications, and relevant testing from [facility] Juanita RaoAminah's recent admission. We will attempt to get [...] lisinopril and Toprol XL Renal function from Dec looked fine; continue as per Dr. Bucio's instructions of course May continue furosemide as 'PRN'- take if swelling returns, stop when swelling resolves Assessment & Plan (02/10/2021 12:15 PM EYEGLASS FRAMES POLISHER): Monitor BP- 1-2 times daily, get me the numbers over the next week. If above 160/90, call. Will continue lisinopril at 30 mg dailly Go to daily furosemide Labs reviewed. Kidney function looks fine. Liver function is acceptable. We will watch the bilirubin, but that is only slightly elevated Assessment & Plan (01/10/2021 11:00 AM EYEGLASS FRAMES POLISHER): BP journal requested over the next week, [...] materials from doctor or pharmacy Never 12/14/2023 [facility] Utilities Answer Date Recorded In the past 12 months has e [employer], gas, oil, or water company threatened to [...] often do you attend chur ch or restoration services? Never 06/24/2024 Do you belong to any clubs o r organizations such as religious groups, unions, fraternal or athletic groups, or [...] any time in the past 12 m [facility], were you homeless or living in a chcf (including now)? No 06/24/2024 Personal Safety Answer Date Recorded Have you ever been in or are you currently in a harmful physical or emotional relationship or is someone making you feel afraid or unsafe? Denies 06/23/2024 Sex and Gender Information Value Date Recorded Sex Assigned at Not on file Legal Sex Male 5:06 AM EYEGLASS FRAMES POLISHER Gender Identity Male 09/02/2021 11:12 AM CDT [...] on file Medical Devices Implanted Type Area Flight Crew Scheduler Device Identifier Shelf Expiration Date Model / Serial / Lot UPR-Online Stent Coronary Drug Eluting Rapid Exchange Synergy Megatron 4.12k50pd [employer] [id number] - [id number] Implanted:Qty: 1 on 02/29/2024 by Jun Hwang MD at [facility] [employer] Ross 12/11/2024 [id number] / / [id number] [employer] Angio-Seal Vip 6fr Closere Device [id number] - [id number] Implanted:Qty: 1 on 02/29/2024 by Jun Hwang MD at [facility] 06/19/2024 [id number] / / [id number] Procedures Procedure Name Priority Date/Time Associated Diagnosis Comments XR CHEST 1 VIEW Schedule Routine, Read Routine (OP Routine) 07/01/2024 11:28 AM CDT EGFR Routine 06/24/2024 6:05 AM CDT DIFFERENTIAL [...] PM CDT Left rotator cuff tear arthropathy HI ARTHROCENTESIS ASPIR&/INJ MAJOR JT/BURSA W/O US Routine 04/25/2024 1:00 PM CDT Primary osteoarthritis of left knee HI ARTHROCENTESIS ASPIR&/INJ MAJOR JT/BURSA W/O US Routine 04/25/2024 1:00 PM CDT Left rotator cuff tear arthropathy from Last 3 Months Results * XR Chest 1 View (07/01/2024 11:28 AM CDT) Anatomical Region Laterality Modality Body, Chest N/A Radiographic Ella ging us Gian Doan MD IMG XR PROCEDURES Final Result * eGFR (06/24/2024 6:05 AM CDT) eGFR [...] of Race in Diagnosing Kidney Disease, JASN 202). The CKD-EPI equation should not be used for patients with unstable renal function and has not been validated in children and those over 70. Current interpretive data was last reviewed 2020. Blood 06/24/2024 6:05 AM CDT 06/24/2024 6:13 AM CDT us Blaze Cade MD LAB BLOOD ORDERABLES Final Resu lt [facility] ([place]) 1 [facility] [place] [address] * (ABNORMAL) Differential, auto (06/24/2024 6:05 AM CDT) Neutrophil abs 6.85(H) 1.50 - 6.50 K/cumm Imm gran abs 0.04 0.00 - 0.10 K/cumm [facility] ([place]) Lymphocyte abs 1.40 0.80 - 3.30 K/cumm [facility] ([place]) Monocyte abs 1.27(H) 0.20 - 0.80 K/cumm [facility] ([place]) Eosinophil abs 0.27 0.00 - 0.50 K/cumm [facility] ([place]) Basophil abs 0.05 0.00 - 0.10 K/cumm [facility] ([place]) Neutrophil pct 69.3 % [facility] ([place]) Comment: Interpretive Data Percent cell count reference ranges are not reported, since discordance with absolute values may lead to misinterpretation of CBC data. Current Interpretive Data was last revised on 2017. Imm gran pct 0.4 % [facility] ([place]) Comment: Interpretive Data Percent cell count reference ranges are not reported, since discordance with absolute values may lead to misinterpretation of CBC data. Current Interpretive Data was last revised on 2017. Lymphocyte pct 14.2 % [facility] ([place]) Comment: Interpretive Data Percent cell count reference ranges are not reported, since discordance with absolute values may lead to misinterpretation of CBC data. Current Interpretive Data was last revised on 2017. Monocyte pct 12.9 % [facility] ([place]) Comment: Interpretive Data Percent cell count reference [...] Final Resu lt [facility] ([place]) 1 [facility] Department [place] [address] * (ABNORMAL) CBC with auto differential (06/24/2024 6:05 AM CDT) WBC 9.88 3.80 - 9.90 K/cumm Hgb 11.7(L) 13.0 - 17.5 g/dL [facility] ([place]) Hct 36.3(L) 38.9 - 50.3 % [facility] ([place]) Plt 150 150 - 400 K/cumm [facility] ([place]) [...] BLOOD ORDERABLES Final Resu lt [facility] ([place]) 1 [facility] [place] [address] * Magnesium (06/24/2024 6:05 AM CDT) Pathologist [facility] Magnesium 1.7 1.4 - 2.5 mg/dL Blood 06/24/2024 6:05 AM CDT 06/24/2024 6:13 AM CDT Blaze Cade MD LAB BLOOD ORDERABLES Final Resu lt Performing Organization Address [facility] Co de Phone Number [facility] ([place]) [address] [place] [address] * (ABNORMAL) Comprehensive metabolic panel (06/24/2024 6:05 AM CDT) Sodium 134(L) 135 - 145 mmol/L Potassium, pl 3.6 3.3 - 4.9 mmol/L [facility] ([place]) Chloride 95(L) 97 - 110 mmol/L [facility] ([place]) CO2 28 22 - 32 mmol/L [facility] ([place]) Anion gap 11 2 - 15 mmol/L [facility] ([place]) BUN 23 6 - 25 mg/dL [facility] ([place]) Creatinine 0.80 0.80 - 1.30 mg/dL [facility] ([place]) Comment:Icteric sample, test results may be affected. Glucose 97 70 - 199 mg/dL [facility] ([place]) Comment: Interpretive Data Fasting glucose >/= [...] classification and Diagnosis of Diabetes Diabetes Care 202; 46: S19-S40. Current interpretive data was last [...] ORDERABLES Final Resu lt Performing Organization Address City/[facility]/ZIP Co de Phone Number [facility] ([place]) 1 [facility] [place] [address] * ABO / Rh Confirmation Testing (06/23/2024 8:42 AM CDT) ABO/Rh Confirmation O Positive [facility] Blood 06/23/2024 8:42 AM CDT 06/23/2024 8:46 AM CDT us Néstor Benitez MD LAB BLOOD ORDERABLE S Final Result Performing Organization Address [facility] Co de Phone Number [facility] ([place]) 1 [facility] [place] [address] [facility] * Hemoglobin and hematocrit (06/23/2024 8:42 AM CDT) Hgb 13.5 13.0 - 17.5 g/dL Hct 41.9 38.9 - 50.3 % [facility] ([place]) Blood 06/23/2024 8:42 AM CDT 06/23/2024 8:46 AM CDT us Néstor Benitez MD LAB BLOOD ORDERABLE S Final Result Performing Organization Address City/[facility]/ZIP Co de Phone Number [facility] ([place]) 1 [facility] [place] [address] * eGFR (06/23/2024 6:22 AM CDT) eGFR [...] S Final Result [facility] ([place]) 1 [facility] [place] [address] * (ABNORMAL) Differential, auto (06/23/2024 6:22 AM CDT) Neutrophil abs 10.43(H) 1.50 - 6.50 K/cumm Imm gran abs 0.05 0.00 - 0.10 K/cumm [facility] ([place]) Lymphocyte abs 1.23 0.80 - 3.30 K/cumm [facility] ([place]) Monocyte abs 1.07(H) 0.20 - 0.80 K/cumm [facility] ([place]) Eosinophil abs 0.02 0.00 - 0.50 K/cumm [facility] ([place]) Basophil abs 0.04 0.00 - 0.10 K/cumm [facility] ([place]) Neutrophil pct 81.2 % [facility] ([place]) Comment: Interpretive [...] S Final Result [facility] ([place]) 1 [facility] Department [place] [address] * (ABNORMAL) CBC with auto differential (06/23/2024 6:22 AM CDT) Pathologist [facility] WBC 12.84(H) 3.80 - 9.90 K/cumm Hgb [...] - 0.01 K/cumm [facility] ([place]) Blood 06/23/2024 6:22 AM CDT 06/23/2024 6:24 AM CDT us Néstor Benitez MD LAB BLOOD ORDERABLE S Final Result [facility] ([place]) 1 [facility] [place] [address] * ABO/Rh (06/23/2024 6:22 AM CDT) [facility] ABO/Rh O Positive Blood 06/23/2024 6:22 AM CDT 06/23/2024 6:24 AM CDT Narrative [facility] ([place]) - 06/23/2024 7:45 AM CDT Has the patient had Daratumumab or Isatuximab in the past 6 months?->Unknown Néstor Benitez MD LAB BLOOD BANK TEST ORDERABLES Final Result Performing Organization Address City/[facility]/ZIP Co de Phone Number [facility] ([place]) [address] [place] [address] * Antibody screen (06/23/2024 6:22 AM CDT) Pathologist [facility] [place], indirect, Gel Interpretation Negative ABSC Blood 06/23/2024 6:22 AM CDT 06/23/2024 6:24 AM CDT Narrative [facility] ([place]) - 06/23/2024 7:45 AM CDT Has the patient had Daratumumab or Isatuximab in the past 6 months?->Unknown Néstor Benitez MD LAB BLOOD BANK TEST ORDERABLES Final Result Performing Organization Address [facility] Co de Phone Number [facility] ([place]) [address] [place] [address] * Lipase (06/23/2024 6:22 AM CDT) [facility] Lipase 23 10 - 99 Units/L Blood 06/23/2024 6:22 AM CDT 06/23/2024 6:25 AM CDT Néstor Benitez MD LAB BLOOD ORDERABLE S Final Result Performing Organization Address City/[facility] Co de Phone Number MARLENE [facility] ([place]) [address] [place] [address] * (ABNORMAL) Comprehensive metabolic panel (06/23/2024 6:22 AM CDT) [facility] Sodium 137 135 - 145 mmol/L Potassium, pl 4.2 3.3 - 4.9 mmol/L [facility] ([place]) Chloride 95(L) 97 - 110 mmol/L [facility] ([place]) CO2 28 22 - 32 mmol/L [...] S Final Result [facility] ([place]) 1 [facility] [place] [address] * XR Knee Left 1 or 2 Views (04/25/2024 1:29 PM CDT) Anatomical Region Laterality Modality Lower Extremities, Knee Left Digital Radiography Narrative 04/25/2024 2:01 PM CDT XR of the left knee are reviewed and demonstrate no acute fractures or destructive osseous lesions. Advanced tricompartmental degenerative changes present with joint space narrowing, osteophyte formation, and subchondral sclerosis. Bone on bone changes tibiofemoral compartments. Result [facility] Macey PERRY IMG XR PROCEDURES Final Result * XR Shoulder Left 2 or More Views (04/25/2024 1:29 PM CDT) Anatomical Region Laterality Modality Upper Extremities, Shoulder Left Digi johnna Radiography Narrative 04/25/2024 2:01 PM CDT Radiographs of the left shoulder reviewed, interpreted, and compared with previous views. There are progressive, advanced, end-stage degenerative changes of the glenohumeral joint, noted with [id number] joint space narrowing, glenoid dysplasia, and flattening and cystic changes of the humeral head. Result [facility] Macey PERRY IMG XR PROCEDURES Final Result * HI ARTHROCENTESIS ASPIR&/INJ MAJOR JT/BURSA W/O US (04/25/2024 [...] procedure well with no immediate complications Result [facility] Macey PERRY IN CLINIC/BEDSIDE ORDER ESTRELLITA Final Result * HI ARTHROCENTESIS ASPIR&/INJ MAJOR JT/BURSA W/O US (04/25/2024 [...] Final Result from Last 3 Months Insurance AET MEDICARE UHC MEDICARE ADVANTAGE [facility] MEDICARE Address: [address] [address] [place] [address] [facility] MEDICARE [facility] MEDICARE Advance Directives For more information, please contact: [phone] Documents on File Type Date Recorded 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 ADVANCE DIRECTIVE 01/22/2024 11:35 AM [...] specifically selected below: No intubation Care Teams Property And Equipment Clerk Relationship Specialty Start Date End Date Antelmo Aguilar MD [address] [address] PCP - General Family Medicine 06/23/24 Wilbert Bucio MD Consulting Physician Nephrology 01/06/21 Gabriel Hand MD [address] [place] [address] [place] [address] Consulting Physician Ophthalmology 01/06/21 Heron Wiggins MD [address] [place] [address] Consulting Physician Orthopedic Surgery 01/06/21 Jw Pascual MD [address] [address] Cardiology 09/02/21
--- OUTSIDE RECORDS SUMMARY | 2024-07-08 10:24 | XMS_ITS | Clinical Summary ---
Author Organization [facility] Address [address] [place] [address] Phone Care Team Providers Care Cement Contractor Name Role Phone Antelmo Aguilar MD Primary Care Provider [phone] Allergies No known active allergies Medications loratadine [...] Subscriber:Self Name:Edison Burr Subscriber ID:[id number] PPO Payer ID:[id number] Type:Not on file Address: [address] [address] Care Teams Cement Contractor Relationship Specialty Start Date End Date Antelmo Aguilar MD PCP - General Family Medicine 03/23/21
--- OUTSIDE RECORDS SUMMARY | 2024-07-08 10:24 | XMS_ITS | CONTINUITY OF CARE DOCUMENT ---
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%, 2019 active Jose Ramon Mai MD Family History of Hypertension: completed - To gray Mai MD ENCOUNTERS Date Type Provider Location Encounter Diag nosis - In-person encounter Office Visit Malka Mai MD [facility] HTN essential--echo ef 65%, 2019 - In-person encounter Office Visit Mlaka Mai MD TeleHealth - In-person encounter Office Visit Malka Mai MD [facility] Family History of Hypertension: - In-person encounter Office Visit Malka Mai MD [facility] CAD- 100% LAD w/collaterals 30% cir 40% mid RCA EF 60% 03/27 - In-person encounter Office Visit Malka Mai MD [facility] HTN essential--echo ef 65%, 2019HyperlipidemiaA bnormal EKGObesity VITAL SIGNS Date Observation Value Provider Body Mass Index (Ratio) 31.60 kg/m2 Cholo Mai MD weight E&M 233 [lb_av] Ivette pemberton respiratory rate E&M 18 /min Kalyn Delatorre blood pressure, cuff size regular La Sunita Delatorre height E&M 72 [in_i] Ivette pemberton height E&M 72 [in_i] [facility] Body Mass Index (Ratio) 32.95 kg/m2 Cholo aMi MD respiratory rate E&M 16 /min [facility] oxygen saturation, oximetry 98 % [facility] pulse rate 66 /min [facility] blood pressure, diastolic 90 mm[Hg] To gray Mai MD blood pressure, systolic 160 mm[Hg] Ton duarte Mai MD weight E&M 243 [lb_av] [facility] height E&M 72 [in_i] [facility] Body Mass Index (Ratio) 33.22 kg/m2 Cholo [...] required Galindo Alexander smoking, year quit [address] [facility] number of years as a smoker 8 a [facility] smoking history, tot al pack/day 1 ppd [facility] cigarette use yes [facility] smoking status Former smoker [facility] number of grandchildren Malka Mai MD T see Mai MD social history E&M S moking History: P atpadilla is a former smoker. Malka Mai MD social history reviewed E&M revi ewed - no changes required Malka Mai MD smoking, year quit [address] [facility] number of years as a smoker 8 a [facility] smoking history, tot al pack/day 1 ppd [facility] cigarette use yes [facility] smoking status Former smoker [facility] social history E&M S moking History: P [...] Payer name Policy type / Coverage type [place] red green party ID [facility] MEDICARE ADVANTAGE (PPO) Other [id number] ADVANCE DIRECTIVES Name Date DISCUSSED - NO DECISION MADE TREATMENT PLAN Date Name Performer [id number],S, Galindo Ahmedza i [id number],S, Galindo Ahmedza i [id number],S, Galindo Ahmedza i [id number],S, Galindo Ahmedza i [id number],S, Galindo Ahmedza i [id number],S, Galindo Ahmedza i [id number],S, Galindo Ahmedza i [id number],S, Galindo Ahmedza i [id number],S, Galindo Ahmedza i [id number],S, Galindo Rothmedza i [id number],B, Hector Nacht [id number],S, Hector Nacht [id number],W, Hector Nacht [id number],S, Hector Nacht Telehealth Galindo Ahmedzai Telehealth Galindo [...] Patient Malka avelar MD Cardiology New Patient Tonitiffany avelar MD Cardiology New Patient Tonduarte avelar [...]
--- OUTSIDE RECORDS SUMMARY | 2024-07-08 10:24 | XMS_ITS | Clinical Summary ---
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 30 tablet 1 01/21/20 [...] and vomiting 06/23/2024 Abdominal bloating 06/23/2024 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 Assessment & Plan (02/25/2022 2:26 PM CORPORATE TRAVEL EXPERT): Silvadene to wound daily after cleansing (OTC [...] resolves Assessment & Plan (02/10/2021 12:15 PM CORPORATE TRAVEL EXPERT): Monitor BP- 1-2 times daily, get me the numbers over the next week. If above 160/90, call. Will continue lisinopril at 30 mg dailly Go to daily furosemide Labs reviewed. Kidney function looks fine. Liver function is acceptable. We will watch the bilirubin, but that is only slightly elevated Assessment & Plan (01/10/2021 11:00 AM CORPORATE TRAVEL EXPERT): BP journal requested over the next week, [...] Department Care Team Description 07/03/2024 Orders Only [facility] Primary Care at [address] [phone] Gian Doan MD 06/24/2024 7:00 PM CDT - 06/24/2024 11:59 PM CDT Hospital Encounter [facility] Emergency, Room R Discharge Disposition: Discharge to home or self care 06/23/2024 6:08 AM CDT - 06/24/2024 7:15 PM CDT Hospital Encounter [facility] Acute Medicine [address] [place] [address] Néstor Benitez MD Nikolic, Jelena, MD UGIB (upper gastrointestinal bleed) (Primary Dx); Esophagitis; Coffee ground emesis; Nausea and vomiting, unspecified vomiting type; Abdominal bloating Discharge Disposition: Discharge to [facility] 04/25/2024 1:20 PM CDT Ancillary Procedure [facility] Imaging at [address] [address] 04/25/2024 1:15 PM CDT Ancillary Procedure [facility] Imaging at [address] [address] Left rotator cuff tear arthropathy 04/25/2024 1:00 PM CDT Office Visit [facility] [address] [place] [phone] Macey Cota PA Primary osteoarthritis of left knee (Primary Dx); Left rotator cuff tear arthropathy 04/25/2024 Telephone [facility] Gastroenterology at [address] [place] [address] Martha Umanzor 04/19/2024 Telephone [facility] [address] [place] [address] [address] [place] [address] Macey Cota PA 04/08/2024 10:00 AM CORPORATE TRAVEL EXPERT Office Visit [employer] at [facility] [address] [facility] [address] [place] [address] Jun Hwang MD Athscl [place] art of left leg w ulcer of [...] materials from doctor or pharmacy Never 12/14/2023 [facility] Utilities Answer Date Recorded In [...] often do you attend chur ch or alevism services? Never 06/24/2024 Do you belong to any clubs o r organizations such as restoration groups, unions, fraternal or athletic groups, or [...] any time in the past 12 m [facility], were you homeless or living in a penitentiary (including now)? No 06/24/2024 Personal Safety Answer Date Recorded Have you ever been in or are you currently in a harmful physical or emotional relationship or is someone making you feel afraid or unsafe? Denies 06/23/2024 Sex and Gender Information Value Date Recorded Sex Assigned at Not on file Legal Sex Male 5:06 AM CORPORATE TRAVEL EXPERT Gender Identity Male 09/02/2021 11:12 AM CDT [...] 06/06/2018, 02/27/2017 Medical Devices Implanted Type Area Program Evaluator Device Identifier Shelf Expiration Date Model / Serial / Lot enVista Stent Coronary Drug Eluting Rapid Exchange Synergy Megatron [id number] [place] Chromium [id number] - [id number] Implanted:Qty: 1 on 02/29/2024 by Jun Hwang MD at [facility] Datical Ross 12/11/2024 [id number] / / [id number] [employer] Angio-Seal Vip 6fr Closere Device [id number] - [id number] Implanted:Qty: 1 on 02/29/2024 by Jun Hwang MD at [facility] [employer] 06/19/2024 [id number] / / [id number] Procedures Procedure Name Priority Date/Time Associated Diagnosis [...] PM CDT Left rotator cuff tear arthropathy ID ARTHROCENTESIS ASPIR&/INJ MAJOR JT/BURSA W/O US Routine 04/25/2024 1:00 PM CDT Primary osteoarthritis of left knee ID ARTHROCENTESIS ASPIR&/INJ MAJOR JT/BURSA W/O US Routine [...] LAB BLOOD ORDERABLES Final Resu lt [facility] ([place]) [address] [facility] Department of Laboratories [place], [place] [id number] * (ABNORMAL) Differential, auto (06/24/2024 6:05 AM CDT) Neutrophil abs 6.85(H) 1.50 - 6.50 K/cumm Imm gran abs 0.04 0.00 - 0.10 K/cumm [facility] ([place]) Lymphocyte abs 1.40 0.80 - [...] MD LAB BLOOD ORDERABLES Final Resu lt [facility] ([place]) [address] [place] [address] * (ABNORMAL) CBC with auto differential (06/24/2024 [...] Final Resu lt [facility] ([place]) 1 [facility] [place] [address] * Magnesium (06/24/2024 6:05 AM CDT) [facility] Magnesium 1.7 1.4 - 2.5 mg/dL Blood 06/24/2024 6:05 AM CDT 06/24/2024 6:13 AM CDT us Blaze Cade MD LAB BLOOD ORDERABLES Final Resu lt [facility] ([place]) 1 [facility] [place] [address] * (ABNORMAL) Comprehensive metabolic panel (06/24/2024 6:05 [...] 11 10 - 50 Units/L [facility] ([place]) Blood 06/24/2024 6:05 AM CDT 06/24/2024 6:13 AM CDT us Blaze Cade MD LAB BLOOD ORDERABLES Final Resu lt [facility] ([place]) 1 [facility] [place] [address] * ABO / Rh Confirmation Testing (06/23/2024 8:42 AM CDT) ABO/Rh Confirmation O Positive [facility] Blood 06/23/2024 8:42 AM CDT 06/23/2024 8:46 AM CDT us Néstor Benitez MD LAB BLOOD ORDERABLE S Final Result Performing Organization Address [facility] Co de Phone Number [facility] ([place]) 1 [facility] [place] [address] [facility] * Hemoglobin and hematocrit (06/23/2024 8:42 AM CDT) Hgb 13.5 13.0 - 17.5 g/dL Hct 41.9 38.9 - 50.3 % [facility] ([place]) Blood 06/23/2024 8:42 AM CDT 06/23/2024 8:46 AM CDT us Néstor Benitez MD LAB BLOOD ORDERABLE S Final Result Performing Organization Address City/[facility]/ZIP Co de Phone Number [facility] ([place]) 1 [facility] [place] [address] * eGFR (06/23/2024 6:22 AM CDT) eGFR [...] BLOOD ORDERABLE S Final Result [facility] ([place]) 1 [facility] Department [place] [address] * (ABNORMAL) Differential, auto (06/23/2024 6:22 AM CDT) Neutrophil abs 10.43(H) 1.50 - 6.50 K/cumm Imm gran abs 0.05 0.00 - 0.10 K/cumm [facility] ([place]) Lymphocyte abs 1.23 0.80 - [...] revised on 2017. Monocyte pct 8.3 % [facility] ([place]) Comment: Interpretive Data Percent cell [...] revised on 2017. Basophil pct 0.3 % [facility] ([place]) Comment: Interpretive Data Percent cell count reference ranges are not reported, since discordance with absolute values may lead to misinterpretation of CBC data. Current Interpretive Data was last revised on 2017. Blood 06/23/2024 6:22 AM CDT 06/23/2024 6:24 AM CDT us Néstor Benitez MD LAB BLOOD ORDERABLE S Final Result [facility] ([place]) 1 [facility] Department [place] [address] * (ABNORMAL) CBC with auto differential (06/23/2024 6:22 AM CDT) WBC 12.84(H) 3.80 - 9.90 K/cumm Hgb 14.4 13.0 - 17.5 g/dL [facility] ([place]) Hct 44.4 38.9 - 50.3 % [facility] ([place]) Plt 178 150 - 400 K/cumm [facility] ([place]) MPV 8.4(L) 9.1 - 12.3 fL [facility] ([place]) RBC 4.54 4.30 - 5.80 M/cumm [facility] ([place]) MCV 97.8(H) 81.3 - 96.4 fL [facility] ([place]) MCH 31.7 27.1 - 33.3 pg [facility] ([place]) MCHC 32.4 32.3 - 35.7 g/dL [facility] ([place]) RDW CV 12.9 11.1 - 14.9 % [facility] ([place]) RDW SD 46.3 35.7 - 48.1 fL [facility] ([place]) NRBC abs 0.00 0.00 - 0.01 K/cumm [facility] ([place]) Blood 06/23/2024 6:22 AM CDT 06/23/2024 6:24 AM CDT Néstor Benitez MD LAB BLOOD ORDERABLE S Final Result Performing Organization Address City/[facility]/ZIP Co de Phone Number [facility] ([place]) 1 [facility] [place] [address] * ABO/Rh (06/23/2024 6:22 AM CDT) ABO/Rh O Positive Blood 06/23/2024 6:22 AM CDT 06/23/2024 6:24 AM CDT Narrative [facility] ([place]) - 06/23/2024 7:45 AM CDT Has the patient had Daratumumab or Isatuximab in the past 6 months?->Unknown Néstor Benitez MD LAB BLOOD BANK TEST ORDERABLES Final Result [facility] ([place]) 1 [facility] [place] [address] * Antibody screen (06/23/2024 6:22 AM CDT) Kasey, indirect, Gel Interpretation Negative ABSC Blood 06/23/2024 6:22 AM CDT 06/23/2024 6:24 AM CDT Narrative [facility] ([place]) - 06/23/2024 7:45 AM CDT Has the patient had Daratumumab or Isatuximab in the past 6 months?->Unknown Néstor Benitez MD LAB BLOOD BANK TEST ORDERABLES Final Result Performing Organization Address City/[facility]/ZIP Co de Phone Number [facility] ([place]) 1 [place] [address] * Lipase (06/23/2024 6:22 AM CDT) Lipase 23 10 - 99 Units/L Blood 06/23/2024 6:22 AM CDT 06/23/2024 6:25 AM CDT Néstor Benitez MD LAB BLOOD ORDERABLE S Final Result Performing Organization Address [facility] de Phone Number [facility] ([place]) 1 [facility] [place] [address] * (ABNORMAL) Comprehensive metabolic panel (06/23/2024 6:22 AM CDT) Sodium 137 135 - 145 mmol/L Potassium, pl 4.2 3.3 - 4.9 mmol/L [facility] ([place]) Chloride 95(L) 97 - 110 mmol/L [facility] ([place]) CO2 28 22 - 32 mmol/L [facility] ([place]) Anion gap 15 2 - 15 mmol/L [facility] ([place]) BUN 17 6 - 25 mg/dL [facility] ([place]) Creatinine 0.78(L) 0.80 - 1.30 mg/dL [facility] ([place]) Comment:Icteric sample, test results may be affected. Glucose 128 70 - 199 mg/dL [facility] ([place]) Comment: Interpretive Data Fasting glucose [...] BLOOD ORDERABLE S Final Result [facility] ([place]) 1 [facility] [place] [address] * XR Knee Left 1 or 2 [...] changes of the glenohumeral joint, noted with [id number] joint space narrowing, glenoid dysplasia, and flattening and cystic changes of the humeral head. Macey PERRY IMG XR PROCEDURES Final Result * ID ARTHROCENTESIS ASPIR&/INJ MAJOR JT/BURSA W/O US (04/25/2024 [...] IN CLINIC/BEDSIDE ORDER ESTRELLITA Final Result * ID ARTHROCENTESIS ASPIR&/INJ MAJOR JT/BURSA W/O US (04/25/2024 [...] Final Result from Last 3 Months Insurance [facility] MEDICARE UHC MEDICARE ADVANTAGE [facility] Address: [address] [address] [place] [address] [facility] MEDICARE [facility] MEDIC[facility] Advance Directives For more information, please contact: [phone] Documents on File Type Date Recorded Patient Dietary Aide Expl anation ADVANCE DIRECTIVE 01/22/2024 11:35 AM [...] specifically selected below: No intubation Care Teams Evaluation Advisor Relationship Specialty Start Date End Date Antelmo Aguilar MD [address] [facility] [address] [place], [place] [id number] PCP - General Family Medicine 06/23/24 Wilbert Bucio MD Consulting Physician Nephrology 01/06/21 Gabriel Hand MD [address] [place] [address] [place] [address] Consulting Physician Ophthalmology 01/06/21 Heron Wiggins MD [address] [place] [address] Consulting Physician Orthopedic Surgery 01/06/21 Jw Pascual MD [address] [facility] [address] [place] [address] Cardiology 09/02/21
--- OUTSIDE RECORDS SUMMARY | 2024-07-08 10:24 | XMS_ITS ---
Author Name Auto Generated, Auto Generated Organization [facility] Address [address] [place] [address] Phone [phone] Care Team Providers Care Grinder Lap Name Role Phone Jose L Turner Soraida Unavailable NathanielUlyssesJuanita Unavailable Juan Bowenelle Unavailable Lauren Antelmo Unavailable [phone] Functional Status No Results Mental Status No Results Allergies and Intolerances Name Onset Date Reaction Severity No Known Allergies (Allergy) Sat Jan 19 16:19:00 EST 2023 Encounters Program Name Primary Diagnosis Admission Date/Time Dis charge Date/Time Rehabilitation [facility] MonSep 05 20:00:00 EDT 2023Dec 04 19:59:00 EDT 2023 null Sat Oct 02 04:00 :00 EDT 2015Mar 08 03:00:00 EST 2024 [facility] Sat Jan 19 11:30:00 EST 2023 Immunizations [...] Medications Medication Directions Start Date End Date levoFLOXacin 750 mg tablet 1 Tab TABLET Oral 1 Time Daily for 3 Days Indication: Infection MonJul 08 09:00:00 EDT 2024Jul 11 08:59:00 EDT 2024 metroNIDAZOLE 500 mg tablet 1 tab TABLET Oral Every 8 Hours for 3 Days Indication: infection MonJul 08 09:00:00 EDT 2024Jul 11 08:59:00 EDT 2024 fluticasone propionate 50 mcg/actuation nasal [...] TYLENOL IN 24 HOURS MonJune 25 01:00:00 EDT 2024 atorvastatin 20 mg tablet 1 tablet TABLE T Oral 1 Time Daily Indication: HLD MonJune 25 01:00:00 EDT 2024 clopidogreL 75 mg tablet 1 tab TABLET Or al 1 Time Daily Indication: cad MonJune 25 01:00:00 EDT 2024 Eliquis 2.5 mg tablet 1 tab [...] Eye 1 Time Daily Indication: Glaucoma MonJune 25:00:00 EDT 2024 metoprolol succinate ER 25 mg [...] Daily Indication: GERD MonJune 25 01:00:00 EDT 2024 Kelsy June 27 15:15:00 EDT 2024 polyethylene glycoL 3350 [...] Nausea/vomiting MonJune 22 06:00:00 EDT 2024 Spikevax [id number](12y up)(PF) 50 mcg/0.5 mL intramuscular syringe 0.5 mL SYRINGE (ML) Intramuscular 1 Time Daily for 1 Day Indication: COVID vaccination MonJune 06 05:00:00 EDT 2024June 07 04:59:00 EDT 2024 triamcinolone acetonide 0.1 % topical cream 1 application CREAM (GRAM) Topical PRN 2 Times Daily Indication: Apply 1 application to rash on face and neck BID PRN MonMay 28 06:00:00 EDT 2024 acetaminophen PM 25 mg-500 mg tablet 2 Tablets TABLET Oral 1 Time Daily Indication: Take 2 tabs Q HS for pain/insomniaDO NOT EXCEED MORE THAN 3GM IN 24 HR BY ALL SOURCES MonMay 26 23:33:00 2024 acetaminophen 500 mg tablet 2 Tablets TABLET Oral 1 Time Daily Indication: PainDO NOT EXCEED 3 GRAMS OF TYLENOL IN 24 HOURS MonMay 26 23:34:00 ED2024June 25 00:04:00 EDT 2024 acetaminophen 325 mg tablet 1-2 tabs TABLET [...] 6 Hours Indication: pain MonMar 09 13:11:00 2024 acetaminophen PM 25 mg-500 mg tablet 2 Tablets TABLET Oral 1 Time Daily Indication: Take 2 tabs Q HS for pain/insomniaDO NOT EXCEED MORE THAN 3GM IN 24 HR BY ALL SOURCES MonMar 09 13:12:00 2024May 26 23:34:00 EDT 2024 Child Giltuss Mult-Sym Cold-Flu 4 mg-10 mg-13 mg-650 mg/10 mL oral liq 10 MLS LIQUID (ML) Oral 1 Time Daily Indication: Give 10mls Q HS for cough MonMar 04 06:00:00 2024Apr 23 16:40:00 EDT 2024 acetaminophen 500 mg tablet 2 Tablets TABLET Oral 1 Time Daily Indication: PainDO NOT EXCEED 3 GRAMS OF TYLENOL IN 24 HOURS MonMar 04 06:00:00 2024May 26 23:35:00 EDT 2024 acetaminophen 325 [...] MonMar 04 21:00:00 EST 2024Mar 09 13:13:00 2024 Children's Mucinex Multi-Symptom 2.5 mg-5 mg-100 mg/5 mL oral liquid 10 ml LIQUID (ML) Oral PRN Every 12 Hours Indication: Cough, congestion MonMar 02 11:58:00 EST 2024Mar 04 10:30:00 2024 Eliquis 2.5 mg tablet 1 tab TABLET Oral 2 Times Daily Indication: CAD MonMar 01 09:00:00 2024June 25 00:10:00 EDT 2024 clopidogreL 75 mg tablet 1 tab TABLET Or al 1 Time Daily Indication: monMar 01 09:00:00 EST 2024June 25 00:07:00 EDT 2024 Eliquis 2.5 mg tablet 1 tablet TABLET Or al 2 Times Daily for 3 Days Indication: A-Fib Kelsy Feb 21 21:00:00 EST 2024 Sun Feb 24 20:59:00 EST 2024 spironolactone 25 mg [...] Hours Indication: pain MonFeb 15 13:00:00 EST 2024 Sat Mar 09 13:12:00 EST 2024 Santyl Collagenase Ointment [...] Weekly Indication: Vitamin deficiency MonFeb 04 18:33:00 EST 2023June 25 00:12:00 EDT 2024 TubersoL 5 tub. unit/0.1 mL intradermal injection solution 0.1 ml VIAL (ML) Intradermal 1 Time Weekly for 2 Weeks Indication: .. 1st injection on admission, then one week after. Read between 48 and 72 hours MonJan 29 07:00:00 EST 2023Feb 12 06:59:00 EST 2024 TubersoL 5 [...] . depression, appetite stimulant MonFeb 04 21:00:00 EST 2023 Sat Mar 09 13:11:00 EST 2024 acetaminophen 325 mg tablet 2 tablets TABLET Oral PRN Every 4 Hours Indication: Pain *Do not exceed 3gm/day total apap from all sources* MonJan 22 02:53:00 2023Mar 03 17:20:00 EST 2024 ALPRAZolam 0.25 mg tablet 1 tablet TABLE T Oral PRN Hour Of Sleep for 30 Days Indication: Anxiety MonJan 22 02:54:00 2023Feb 21 02:53:00 EST 2024 Entresto 24 mg-26 [...] x-ray. MonJan 19 16:00:00 2023Jan 29 14:33:00 EST 2023 acetaminophen 325 mg tablet 2 tablets TABLET Oral PRN Every 4 Hours Indication: Pain MonJan 19 16:20:00 EST 2023Jan 22 02:54:00 EST 2023 ALPRAZolam 0.25 mg tablet 1 tablet TABLE T Oral PRN Hour Of Sleep Indication: Anxiety MonJan 19 16:20:00 EST 2023Jan 22 02:55:00 EST 2023 atorvastatin 20 [...] Oral 2 Times Daily Indication: Heart Failure Sat Jan 19 16:20:00 EST 2023Jan 20 12:21:00 EST 2023 fluticasone propionate 50 mcg/actuation nasal spray,suspension 1 spray SPRAY, SUSPENSION Intranasal - Both Nostrils 1 Time Daily Indication: Allergies MonJan 19 16:20:00 EST 2023Mar 24 15:02:00 EST 2024 folic acid 1 mg tablet 1 tablet TABLET O ral 1 Time Daily Indication: Supplement MonJan 19 16:30:00 EST 2023June 25 00:14:00 EDT 2024 furosemide 20 mg tablet 1 tablet TABLET Oral 1 Time Daily Indication: Edema MonJan 19 16:30:00 EST 2023June 25 00:15:00 EDT 2024 isosorbide mononitrate ER 30 mg tablet,extended release 24 hr 1 tablet TABLET, EXTENDED RELEASE 24 HR Oral 1 Time Daily Indication: Angina Sat Jan 19 16:30:00 EST 2023Jan 20 12:21:00 EST 2023 latanoprost 0.005 % eye drops 1 drop DROPS Left Eye 1 Time Daily Indication: Glaucoma MonJan 19 16:30:00 EST 2023June 25 00:16:00 EDT 2024 levothyroxine 25 mcg tablet 1 tablet TABLET Oral 1 Time Daily Indication: Hypothyroidism Sat Jan 19 16:30:00 EST 2023 Toprol XL 25 mg tablet,extended release 12.5 mg TABLET, EXTENDED RELEASE 24 HR Oral 1 Time Daily Indication: HTN Sat Jan 19 16:30:00 EST 2023Jan 20 12:21:00 EST 2023 pantoprazole 40 mg tablet,delayed release 1 tablet TABLET, DELAYED RELEASE (ENTERIC COATED) Oral 2 Times Daily Indication: GERD MonJan 19 16:30:00 EST 2023May 21 15:13:00 EDT 2024 polyethylene glycoL 3350 17 gram/dose oral powder 17 gram POWDER (GRAM) Oral 1 Time Daily Indication: Constipation MonJan 19 16:30:00 2023June 25 00:20:00 EDT 2024 sertraline 50 [...] 2023 * End Date: * 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* Code: * Start [...] * Text: * 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* Code: * Start Date: MonJune 24 00:00:00 EDT 2024 * End Date: * Text: * 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 * Dulce Jacques Stefan's mobility level is different than prior level due to current medical condition.* Code: * Start Date: MonJan 29 00:00:00 EST 2023 * End Date: * Text: [facility]_Social Services- Stefan's mobility level is different than prior level due to current medical condition. * [facility]_Social Services- Stefan will be involved in discharge planning.* Code: * Start Date: MonJan 29 00:00:00 EST 2023 * End Date: MonApr 16 00:00:00 EDT 2024 * Text: [facility]_Social Services- Stefan will be involved in discharge planning. * LSS_Anticoagulant - Stefan is at risk for bleeding due to use of Eliquis* Code: * Start Date: MonJan 31 00::00 EST 2023 * End Date: * Text: LSS_Anticoagulant - Stefan is at risk for bleeding due to use of Eliquis * LSS_Psychotropic Drug Use - Use of psychotropic drug use places Vincent at risk for drug-related side effects.* Code: * Start Date: MonJan 31 00::00 2023 * End Date: * Text: LSS_Psychotropic Drug Use - Use of psychotropic drug use places Vincent at risk for drug-related side effects. * LSS_Falls - Vincbraydon is at risk for falls/injury as evidenced by: history of falls, cognitive status/behavior, vision status, continence, mobility, balance.* Code: * Start Date: MonJan 31 00::00 EST 2023 * End Date: * Text: LSS_Falls - Vincbraydon is at risk for falls/injury as evidenced by: history of falls, cognitive status/behavior, vision status, continence, mobility, balance. * LSS_Pain - Vincbraydon is experiencing pain or is at high risk for pain.* Code: * Start Date: MonJan 31 00:00:00 EST 2023 * End Date: * Text: LSS_Pain - Vincbraydon is experiencing pain or is at high risk for pain. * LSS_Skin Integrity - Vincbraydon has alteration in skin integrity. Wound type: left heel pressure injury.* Code: * Start Date: MonJan 31 00:00:00 EST 2023 * End Date: * Text: LSS_Skin Integrity - Vincbraydon has alteration in skin integrity. Wound type: [...] things that are most important to him. Delmar is Yarsani. Delmar spends most of his leisure time in his room watching television.* Code: * Start Date: MonMar 18 00:00:00 EST 2024 * End Date: * Text: LSS_Activities - Delmar's quality of life is better when he is able to do things that are mostimportant to him. Delmar is Yarsani. Delmar spends most of his leisure time [...] Vital Sign Measurement Date Systolic Blood Pressure 94.00 mm[Hg] MonJul 08 09:46:06 EDT 2024 Diastolic Blood Pressure 48.00 mm[Hg] MonJul 08 09:46:06 EDT 2024 Systolic Blood Pressure 94.00 mm[Hg] MonJul 08 09:46:06 EDT 2024 Diastolic Blood Pressure 48.00 mm[Hg] MonJul 08 09:46:06 EDT 2024 Heart Rate 95.00 /min MonJul 08 09:46 :06 EDT 2024 Heart Rate 95.00 /min MonJul 08 09:46 :06 EDT 2024 Systolic Blood Pressure 118.00 mm[Hg] MonJul 07 23:32:00 EDT 2024 Diastolic Blood Pressure 60.00 mm[Hg] MonJul 07 23:32:00 EDT 2024 Heart Rate 88.00 /min MonJul 07 23:32 :00 EDT 2024 Respiratory rate 20.00 /min MonJul 07 23:3 2:00 EDT 2024 Pulse Oximetry 97.00 % MonJul 07 23:32 :00 EDT 2024 Body weight 225.00 [lb_av] MonJul 07 23:32 :00 EDT 2024 Body temperature 98.50 [degF] MonJul 07 23:3 2:00 EDT 2024 Body Height 71.00 [in_i] MonJul 07 23:32 :00 EDT 2024 Systolic Blood Pressure 133.00 mm[Hg] [...] 2024 Diastolic Blood Pressure 64.00 mm[Hg] MonJune 29 09:36:15 EDT 2024 Systolic Blood Pressure 108.00 mm[Hg] MonJune 29:36:15 EDT 2024 Diastolic Blood Pressure 64.00 mm[Hg] MonJune 29:36:15 EDT 2024 Heart Rate 72.00 /min MonJune 29:36 :15 EDT 2024 Heart Rate 72.00 /min MonJune 29 09:36 :15 EDT 2024 Systolic Blood Pressure 142.00 mm[Hg] MonJune 28:25:24 EDT 2024 Diastolic Blood Pressure 78.00 mm[Hg] MonJune 28:25:24 EDT 2024 Heart Rate 80.00 /min MonJune 28:25 :24 EDT 2024 Systolic Blood Pressure 128.00 mm[Hg] MonJune 28 10:31: EDT 2024 Diastolic Blood Pressure 60.00 mm[Hg] MonJune 28 10:: EDT 2024 Systolic Blood Pressure 128.00 mm[Hg] MonJune 28 10:: EDT 2024 Diastolic Blood Pressure 60.00 mm[Hg] MonJune 28 10:31: EDT 2024 Heart Rate 92.00 /min MonJune 28: : EDT 2024 Heart Rate 92.00 /min MonJune 28 10: : EDT 2024 Systolic Blood Pressure 127.00 mm[Hg] MonJune 27 20:07:27 EDT 2024 Diastolic Blood Pressure 75.00 mm[Hg] MonJune 27:07:27 EDT 2024 Heart Rate 80.00 /min MonJune [...] 65.00 mm[Hg] MonJune 25 09:14:38 EDT 2024 Heart Rate 95.00 /min MonJune 25 09:14 :38 EDT 2024 Heart Rate 95.00 /min MonJune 25 09:14 :38 EDT 2024 Body weight 225.00 [lb_av] [...] EDT 2024 Pulse Oximetry 95.00 % MonJune 23 00:06 :19 EDT 2024 Heart Rate 93.00 /min [...] 2024 Systolic Blood Pressure 132.00 mm[Hg] MonJune 20 20:22:23 EDT 2024 Diastolic Blood Pressure 82.00 mm[Hg] MonJune 20 20:22:23 EDT 2024 Heart Rate 85.00 /min MonJune 20 20:22 :23 EDT 2024 Systolic Blood Pressure [...] 75.00 /min MonJune 17 20:13 :36 EDT 2024 Systolic Blood Pressure 136.00 mm[Hg] [...] 2024 Systolic Blood Pressure 117.00 mm[Hg] MonJune 16 09:07:05 EDT 2024 Diastolic Blood Pressure 65.00 mm[Hg] MonJune 16 09:07:05 EDT 2024 Systolic Blood Pressure 117.00 mm[Hg] MonJune 16 09:07:05 EDT 2024 Diastolic Blood Pressure 65.00 mm[Hg] MonJune 16 09:07:05 EDT 2024 Heart Rate 70.00 /min MonJune 16 09:07 :05 EDT 2024 Heart Rate 70.00 /min MonJune 16 09:07 :05 EDT 2024 Systolic Blood Pressure 107.00 mm[Hg] MonJune 15 23:03:22 EDT 2024 Diastolic Blood Pressure 71.00 mm[Hg] MonJune 15 23:03:22 EDT 2024 Heart Rate 83.00 /min MonJune 15 23:03 :22 EDT 2024 Systolic Blood Pressure 144.00 mm[Hg] MonJune 15:17:16 EDT 2024 Diastolic Blood Pressure 81.00 mm[Hg] MonJune 15:17:16 EDT 2024 Systolic Blood Pressure 144.00 mm[Hg] MonJune 15:17:16 EDT 2024 Diastolic Blood Pressure 81.00 mm[Hg] MonJune 15:17:16 EDT 2024 Heart Rate 81.00 /min MonJune 15:17 :16 EDT 2024 Heart Rate 81.00 /min Sat May 10 09:17 :16 EDT 2024 Systolic Blood Pressure 105.00 mm[Hg] MonJune 14 [...] 84.00 mm[Hg] MonJune 14 09:16:24 EDT 2024 Heart Rate 80.00 /min MonJune 14:16 :24 EDT 2024 Heart Rate 80.00 /min MonJune 14 09:16 :24 EDT 2024 Systolic Blood Pressure 127.00 mm[Hg] MonJune 13 20:14:15 EDT 2024 Diastolic Blood Pressure 74.00 mm[Hg] MonJune 13 20:14:15 EDT 2024 Heart Rate 86.00 /min MonJune 13 20:14 :15 EDT 2024 Body weight 204.00 [lb_av] MonJune 13 12:14 :27 EDT 2024 Systolic Blood Pressure 135.00 mm[Hg] MonJune 13 09:19:52 EDT 2024 Diastolic Blood Pressure 78.00 mm[Hg] MonJune 13 09:19:52 EDT 2024 Systolic Blood Pressure 135.00 mm[Hg] MonJune 13 09:19:52 EDT 2024 Diastolic Blood Pressure 78.00 mm[Hg] MonJune 13 09:19:52 EDT 2024 Heart Rate 79.00 /min MonJune 13 09:19 :52 EDT 2024 Heart Rate 79.00 /min MonJune 13 09:19 :52 EDT 2024 Systolic Blood Pressure 118.00 mm[Hg] MonJune 13 00:44:50 EDT 2024 Diastolic Blood Pressure 73.00 mm[Hg] MonJune 13 00:44:50 EDT 2024 Heart Rate 86.00 /min MonJune 13 00:44 :50 EDT 2024 Body temperature 98.00 [degF] MonJune 13 00:4 4:50 EDT 2024 Respiratory rate 20.00 /min MonJune 13 00:4 4:50 EDT 2024 Pulse Oximetry [...] 76.00 /min MonJune 09 09:36 :55 EDT 2025 Systolic Blood Pressure 125.00 mm[Hg] [place] June 09 07:51:22 EDT 2024 Diastolic Blood Pressure 85.00 mm[Hg] MonJune 09 07:51:22 EDT 2024 Heart Rate 72.00 /min MonJune 09 07:51 :22 EDT 2024 Pulse Oximetry 97.00 % [place] June 09 07:51 :22 EDT 2024 Systolic Blood Pressure 114.00 mm[Hg] [facility] June 08 22:14:16 EDT 2024 Diastolic Blood Pressure 69.00 mm[Hg] MonJune 08 22:14:16 EDT 2024 Heart Rate 69.00 /min [facility] June 08 22:14 :16 EDT 2024 Body temperature 97.50 [degF] [facility] June 08 16:0 2:35 EDT 2024 Systolic Blood [...] 09:24:06 EDT 2024 Heart Rate 92.00 /min Fri May 02 09:24 :06 EDT 2024 Heart Rate 92.00 [...] 18.00 /min MonJune 06 02:4 7:52 EDT 2024 Body temperature 98.50 [degF] MonJune 06 02:4 [...] EDT 2024 Systolic Blood Pressure 136.00 mm[Hg] MonJun 03 08:47:11 EDT 2024 Diastolic Blood Pressure 77.00 mm[Hg] MonJun 03 08:47:11 EDT 2024 Systolic Blood Pressure 136.00 mm[Hg] MonJun 03 08:47:11 EDT 2024 Diastolic Blood Pressure 77.00 mm[Hg] MonJun 03 08:47:11 EDT 2024 Heart Rate 77.00 /min MonJun 03 08:47 :11 EDT 2024 Heart Rate 77.00 /min MonJun 03 08:47 :11 EDT 2024 Systolic Blood Pressure 98.00 mm[Hg] Sun Apr 27 23:41:01 EDT 2024 Diastolic Blood Pressure 55.00 [...] Diastolic Blood Pressure 91.00 mm[Hg] Sat Apr 09:19:26 EDT 2024 Systolic Blood Pressure 147.00 mm[Hg] Sat Apr 26 09:19:26 EDT 2024 Diastolic Blood Pressure 91.00 mm[Hg] Sat Apr 09:19:26 EDT 2024 Heart Rate 71.00 /min Sat Apr 09:19 :26 EDT 2024 Heart Rate 71.00 /min Sat Apr 09:19 :26 EDT 2024 Systolic Blood Pressure 116.00 mm[Hg] Fri Apr 23:17:33 EDT 2024 Diastolic Blood Pressure 57.00 mm[Hg] Fri Apr 23:17:33 EDT 2025 Heart Rate 73.00 /min MonMay 31 23:17 :33 EDT 2024 Systolic Blood [...] Systolic Blood Pressure 132.00 mm[Hg] Kelsy May 30 20:12:02 EDT 2024 Diastolic Blood Pressure 75.00 mm[Hg] Kelsy May 30 20:12:02 EDT 2024 Heart Rate 68.00 /min Kelsy May 30 20:12 :02 EDT 2024 Systolic Blood Pressure 125.00 mm[Hg] Kelsy May 24 09:40:35 EDT 2024 Diastolic Blood Pressure 81.00 mm[Hg] Kelsy May 24 09:40:35 EDT 2024 Systolic Blood Pressure 125.00 mm[Hg] Kelsy May 24 09:40:35 EDT 2024 Diastolic Blood Pressure 81.00 mm[Hg] Kelsy May 24 09:40:35 EDT 2024 Heart Rate 81.00 /min Kelsy May 24 09:40 :35 EDT 2024 Heart Rate 81.00 /min Kelsy May 24 09:40 :35 EDT 2024 Systolic Blood Pressure 125.00 mm[Hg] Kelsy May 24 08:23:57 EDT 2024 Diastolic Blood Pressure 81.00 mm[Hg] Kelsy May 24 08:23:57 EDT 2024 Heart Rate 81.00 /min Kelsy May 24 08:23 :57 EDT 2024 Pulse Oximetry 98.00 % Kelsy May 24 08:23 :57 EDT 2024 Systolic Blood Pressure 118.00 mm[Hg] Kelsy May 24 05:18:04 EDT 2024 Diastolic Blood Pressure 62.00 mm[Hg] Kelsy May 24 05:18:04 EDT 2024 Heart Rate 85.00 /min Kelsy May 24 05:18 :04 EDT 2024 Body temperature 98.50 [degF] Kelsy May 30 05:1 8:04 EDT 2024 Respiratory rate 18.00 /min MonMay 30 05:1 8:04 EDT 2024 Pulse Oximetry 97.00 % MonMay 30 05:18 :04 EDT 2024 Systolic Blood [...] EDT 2024 Systolic Blood Pressure 143.00 mm[Hg] Sun May 26 20:08:22 EDT 2024 Diastolic Blood Pressure 74.00 mm[Hg] Sun May 26 20:08:22 EDT 2024 Heart Rate 82.00 /min Sun May 26 20:08 :22 EDT 2024 Systolic Blood Pressure 152.00 mm[Hg] Sun May 26 09:01:49 EDT 2024 Diastolic Blood Pressure 95.00 mm[Hg] Sun May 26 09:01:49 EDT 2024 Systolic Blood Pressure 152.00 mm[Hg] Sun May 26 09:01:49 EDT 2024 Diastolic Blood Pressure 95.00 mm[Hg] Sun May 26 09:01:49 EDT 2024 Heart Rate 88.00 /min Sun May 26 09:01 :49 EDT 2024 Heart Rate 88.00 /min Sun May 26 09:01 :49 EDT 2024 Systolic Blood Pressure 152.00 mm[Hg] Sun Apr 20 08:12:49 EDT 5 Diastolic Blood Pressure 95.00 mm[Hg] Sun Apr 20 08:12:49 EDT 2024 Heart Rate 88.00 /min Sun Apr 20 08:12 :49 EDT 2024 Pulse Oximetry 98.00 % Sun Apr 20 08:12 :49 EDT 5 Systolic Blood Pressure 116.00 mm[Hg] Sat Apr 19 20:47:26 EDT 2024 Diastolic Blood Pressure 70.00 mm[Hg] Sat Apr 19 20:47:26 EDT 5 Heart Rate 72.00 /min Sat Apr 19 [...] Sat Apr 19 09:19 :05 EDT 2024 Systolic Blood Pressure 129.00 mm[Hg] Sat Apr 19 08:14:58 EDT 2024 Diastolic Blood Pressure 71.00 mm[Hg] Sat Apr 19 08:14:58 EDT 2024 Pulse Oximetry 97.00 % Sat Apr 19 08:14 :58 EDT 2024 Heart Rate 50.00 /min Sat Apr 19 08:14 :58 EDT 5 Systolic Blood Pressure 130.00 mm[Hg] Sat Apr 19 08:10:14 EDT 5 Diastolic Blood Pressure 75.00 mm[Hg] Sat Apr 19 08:10:14 EDT 2024 Pulse Oximetry 100.00 % Sat Apr 19 08:10 :14 EDT 2024 Heart Rate 72.00 /min Sat Apr 19 08:10 :14 EDT 5 Systolic Blood Pressure 98.00 mm[Hg] Fri May 18 22:51:11 EDT 2024 Diastolic Blood Pressure 61.00 mm[Hg] Mon 18 22:51:11 EDT 2024 Heart Rate 82.00 /min MonMay 24 22:51 :11 EDT 2024 Systolic Blood Pressure [...] mm[Hg] Kelsy Apr 17 10:52:12 EDT 2024 Systolic Blood Pressure 126.00 mm[Hg] Kelsy May 17 10:52:12 EDT 2024 Diastolic Blood Pressure 79.00 mm[Hg] Kelsy Apr 17 10:52:12 EDT 2024 Heart Rate 79.00 /min Kelsy May 17 10:52 :12 EDT 2024 Heart Rate 79.00 /min Kelsy May 17 10:52 :12 EDT 2024 Systolic Blood Pressure 126.00 mm[Hg] MonMay 22 22:48:44 EDT 2024 Diastolic Blood Pressure 77.00 mm[Hg] MonMay 22 22:48:44 EDT 2024 Heart Rate 82.00 /min MonMay 22 22:48 :44 EDT 2024 Body temperature 97.50 [degF] MonMay 22 22:4 8:44 EDT 2024 Respiratory rate 18.00 /min MonMay 22 22:4 8:44 EDT 2024 Pulse Oximetry 97.00 % MonMay 22 22:48 :44 EDT 2024 Systolic Blood Pressure 126.00 mm[Hg] MonMay 22 20:38:31 EDT 2024 Diastolic Blood Pressure 77.00 mm[Hg] MonMay 22 20:38:31 EDT 2024 Heart Rate 75.00 /min Wed Apr 16 20:38 :31 EDT 2024 Systolic Blood Pressure 133.00 mm[Hg] Mon 16 09:29:48 EDT 2024 Diastolic Blood Pressure 73.00 mm[Hg] Mon 16 09:29:48 EDT 2024 Systolic Blood Pressure 133.00 mm[Hg] MonMay 22 09:29:48 EDT 2024 Diastolic Blood Pressure 73.00 mm[Hg] Mon 16 09:29:48 EDT 2024 Heart Rate 80.00 /min MonMay 22 09:29 :48 EDT 2024 Heart Rate 80.00 /min MonMay 22 09:29 :48 EDT 2024 Systolic Blood Pressure 133.00 mm[Hg] MonMay 22 08:16:20 EDT 2024 Diastolic Blood Pressure 73.00 mm[Hg] MonMay 22 08:16:20 EDT 2024 Heart Rate 80.00 /min MonMay 22 08:16 :20 EDT 2024 Body temperature 97.00 [degF] MonMay 22 08:1 6:20 EDT 2024 Pulse Oximetry 97.00 % MonMay 22 08:16 :20 EDT 2024 Respiratory rate 18.00 /min MonMay 22 08:1 6:20 EDT 2024 Systolic Blood Pressure 101.00 mm[Hg] Mon 15 23:40:24 EDT 2024 Diastolic Blood Pressure 60.00 mm[Hg] MonMay 21 23:40:24 EDT 2024 Heart Rate 69.00 /min Mon 15 23:40 :24 EDT 2024 Systolic Blood Pressure 137.00 mm[Hg] Mon 15 10:47:42 EDT 2024 Diastolic Blood Pressure 79.00 mm[Hg] Mon 15 10:47:42 EDT 2024 Systolic Blood Pressure 137.00 [...] EDT 2024 Heart Rate 88.00 /min Mon May 14 20:21 :41 EDT 2024 Body weight 193.60 [lb_av] Mon May 14 18:21 :13 EDT 2024 Systolic Blood Pressure 124.00 mm[Hg] Mon May 14 09:50:58 EDT 2024 Diastolic Blood Pressure 68.00 mm[Hg] Mon May 14 09:50:58 EDT 2024 Systolic Blood Pressure 124.00 mm[Hg] Mon May 14 09:50:58 EDT 2024 Diastolic Blood Pressure 68.00 mm[Hg] Mon May 14 09:50:58 EDT 2024 Heart Rate 76.00 /min Mon May 14 09:50 :58 EDT 2024 Heart Rate 76.00 /min Mon May 14 09:50 :58 EDT 2024 Systolic Blood Pressure 100.00 mm[Hg] Sun Apr 13 23:12:09 EDT 2024 Diastolic Blood Pressure 55.00 mm[Hg] Sun Apr 13 23:12:09 EDT 2024 Heart Rate 80.00 /min Sun Apr 13 23:12 :09 EDT 2024 Systolic Blood Pressure 161.00 mm[Hg] Sun Apr 13 09:27:35 EDT 2024 Diastolic Blood Pressure 97.00 mm[Hg] Sun Apr 13 09:27:35 EDT 2024 Systolic Blood Pressure 161.00 mm[Hg] Sun Apr 13 09:27:35 EDT 2024 Diastolic Blood Pressure 97.00 mm[Hg] Sun Apr 13 09:27:35 EDT 2024 Heart Rate 80.00 /min Sun Apr 13 09:27 :35 EDT 2024 Heart Rate 80.00 /min Sun Apr 13 09:27 :35 EDT 2024 Systolic Blood Pressure 161.00 mm[Hg] Sun Apr 13 08:17:56 EDT 2024 Diastolic Blood Pressure 97.00 mm[Hg] Sun Apr 13 08:17:56 EDT 2024 Heart Rate 80.00 /min Sun Apr 13 08:17 :56 EDT 2024 Systolic Blood Pressure 105.00 mm[Hg] Sat Apr 12 20:54:31 EDT 2024 Diastolic Blood Pressure 60.00 mm[Hg] Sat Apr 12 20:54:31 EDT 2024 Heart Rate 77.00 /min Sat Apr 12 20:54 :31 EDT 2024 Systolic Blood Pressure 137.00 mm[Hg] [...] /min Sat Apr 12 10:56 :35 EDT 5 Systolic Blood Pressure 152.00 mm[Hg] Fri Apr 11 23:26:10 EDT 2024 Diastolic Blood Pressure 78.00 mm[Hg] Fri Apr 11 23:26:10 EDT 2024 Heart Rate 80.00 /min Fri Apr 11 23:26 :10 EDT 2024 Systolic Blood Pressure 136.00 mm[Hg] Fri Apr 11 10:16:45 EDT 2024 Diastolic Blood Pressure 72.00 mm[Hg] Fri Apr 11 10:16:45 EDT 2024 Systolic Blood Pressure 136.00 mm[Hg] Fri Apr 11 10:16:45 EDT 2024 Diastolic Blood Pressure 72.00 mm[Hg] Fri May 11 10:16:45 EDT 5 Heart Rate 73.00 /min Fri May 11 10:16 :45 EDT 2024 Heart Rate 73.00 /min Fri Apr 11 10:16 :45 EDT 2024 Systolic Blood Pressure 128.00 mm[Hg] Kels[facility] Apr 10 20:33:34 EDT 2024 Diastolic Blood Pressure 72.00 mm[Hg] Kelsy Apr 10 20:33:34 EDT 2024 Heart Rate 85.00 /min Kelsy Apr 10 20:33 :34 EDT 2024 Systolic Blood Pressure 136.00 mm[Hg] Kelsy Apr 10 09:03:17 EDT 5 Diastolic Blood Pressure 72.00 mm[Hg] Kelsy Apr 10 09:03:17 EDT 2024 Systolic Blood Pressure 136.00 mm[Hg] Kelsy Apr 10 09:03:17 EDT 2024 Diastolic Blood Pressure 72.00 mm[Hg] Kelsy Apr 10 09:03:17 EDT 2024 Heart Rate 73.00 /min Kelsy Apr 10 09:03 :17 EDT 2024 Heart Rate 73.00 /min Kelsy Apr 10 09:03 :17 EDT 2024 Systolic Blood Pressure [...] EDT 2024 Systolic Blood Pressure 159.00 mm[Hg] Mon 08 09:55:01 EDT 2024 Diastolic Blood Pressure 88.00 mm[Hg] Mon 08 09:55:01 EDT 2024 Systolic Blood Pressure 159.00 mm[Hg] Mon 08 09:55:01 EDT 2024 Diastolic Blood Pressure 88.00 [...] Diastolic Blood Pressure 64.00 mm[Hg] Sun May 12 01:08:38 EDT 2024 Heart Rate 84.00 /min Sun May 06 01:08 :38 EDT 2024 Systolic Blood Pressure 109.00 mm[Hg] Sat May 05 09:41:01 EDT 2024 Diastolic Blood Pressure 71.00 mm[Hg] Sat May 05 09:41:01 EDT 2024 Systolic Blood Pressure 109.00 mm[Hg] Sat May 05 09:41:01 EDT 2024 Diastolic Blood Pressure 71.00 mm[Hg] Sat May 05 09:41:01 EDT 2024 Heart Rate 91.00 /min Sat May 05 09:41 :01 EDT 2024 Heart Rate 91.00 /min Sat May 05 09:41 :01 EDT 2024 Systolic Blood Pressure 103.00 mm[Hg] MonMay 10 21:41:52 EDT 2024 Diastolic Blood Pressure 60.00 mm[Hg] MonMay 10 21:41:52 EDT 2024 Heart Rate 77.00 /min MonMay 10 21:41 :52 EDT 2024 Systolic Blood Pressure 146.00 mm[Hg] MonMay 10 09:42:25 EDT 2024 Diastolic Blood Pressure 81.00 mm[Hg] MonMay 10 09:42:25 EDT 2024 Systolic Blood Pressure 146.00 mm[Hg] MonMay 10 09:42:25 EDT 2024 Diastolic Blood Pressure 81.00 mm[Hg] MonMay 10 09:42:25 EDT 2024 Heart Rate 79.00 /min MonMay 10 09:42 :25 EDT 2024 Heart Rate 79.00 /min MonMay 10 09:42 :25 EDT 2024 Systolic Blood [...] EDT 2024 Systolic Blood Pressure 132.00 mm[Hg] Wed May 02 20:20:52 EDT 2024 Diastolic Blood Pressure 81.00 [...] Pressure 112.00 mm[Hg] MonMay 06 20:19:26 EDT 2025 Diastolic Blood Pressure 68.00 mm[Hg] Mon Mar 31 20:19:26 EDT 5 Heart Rate 75.00 /min Mon Mar 31 20:19 :26 EDT 2024 Body weight 208.00 [lb_av] Mon Mar 31 14:43 :31 EDT 5 Systolic Blood Pressure 104.00 mm[Hg] Mon Mar 31 09:58:55 EDT 2024 Diastolic Blood Pressure 62.00 mm[Hg] Mon Mar 31 09:58:55 EDT 2024 Systolic Blood Pressure 104.00 mm[Hg] Mon Mar 09:58:55 EDT 2024 Diastolic Blood Pressure 62.00 mm[Hg] Mon Mar 09:58:55 EDT 2024 Heart Rate 82.00 /min Mon Mar 09:58 :55 EDT 2024 Heart Rate 82.00 /min Mon Mar 09:58 :55 EDT 2024 Systolic Blood Pressure 103.00 mm[Hg] Sun Mar 30 20:24:25 EDT 2024 Diastolic Blood Pressure 66.00 mm[Hg] Sun Mar 30 20:24:25 EDT 2024 Heart Rate 76.00 /min Sun Mar 30 20:24 :25 EDT 2024 Systolic Blood Pressure 109.00 mm[Hg] Sun Mar 30 09:10:39 EDT 2024 Diastolic Blood Pressure 60.00 mm[Hg] Sun Mar 30 09:10:39 EDT 2024 Systolic Blood Pressure 109.00 mm[Hg] Sun Mar 30 09:10:39 EDT 2024 Diastolic Blood Pressure 60.00 mm[Hg] Sun Mar 30 09:10:39 EDT 2024 Heart Rate 78.00 /min Sun Mar 30 09:10 :39 EDT 2024 Heart Rate 78.00 /min Sun Mar 30 09:10 :39 EDT 2024 Systolic Blood Pressure 109.00 mm[Hg] Sun Mar 30 08:37:53 EDT 2024 Diastolic Blood Pressure 60.00 mm[Hg] Sun Mar 30 08:37:53 EDT 2024 Pulse Oximetry 95.00 % Sun Mar 30 08:37 :53 EDT 2024 Heart Rate 78.00 /min Sun Mar 30 08:37 :53 EDT 2024 Systolic Blood Pressure 116.00 mm[Hg] Sat Mar 29 22:33:53 EDT 2024 Diastolic Blood Pressure 76.00 mm[Hg] Sat Mar 29 22:33:53 EDT 5 Heart Rate 73.00 /min Sat Mar 29 22:33 :53 EDT 5 Systolic Blood Pressure 119.00 mm[Hg] Sat Mar 29 08:18:30 EDT 2024 Diastolic Blood Pressure 75.00 mm[Hg] Sat Mar 29 08:18:30 EDT 2024 Systolic Blood Pressure 119.00 mm[Hg] Sat Mar 29 08:18:30 EDT 2024 Diastolic Blood Pressure 75.00 mm[Hg] Sat Mar 29 08:18:30 EDT 2024 Heart Rate 57.00 /min Sat Mar 29 08:18 :30 EDT 2024 Heart Rate 57.00 /min Sat Mar 29 08:18 :30 EDT 2024 Systolic Blood Pressure 119.00 mm[Hg] Sat Mar 29 07:53:22 EDT 2024 Diastolic Blood Pressure 75.00 mm[Hg] Mon Mar 29 07:53:22 EDT 2024 Pulse Oximetry 94.00 % [facility] Mar 29 07:53 :22 EDT 2024 Heart Rate 57.00 /min MonMay 04 07:53 :22 EDT 5 Systolic Blood Pressure 104.00 mm[Hg] MonMay 03 21:32:30 EDT 2024 Diastolic Blood Pressure 63.00 mm[Hg] MonMay 03 21:32:30 EDT 5 Heart Rate 82.00 /min MonMay 03 21:32 [...] :22 EDT 2024 Pulse Oximetry 97.00 % Fri Mar 28 08:12 :22 EDT 2025 Systolic Blood Pressure 126.00 mm[Hg] Mon 27 20:04:57 EDT 2024 Diastolic Blood Pressure 85.00 mm[Hg] MonMay 02 20:04:57 EDT 2024 Heart Rate 76.00 /min MonMay 02 20:04 :57 EDT 2024 Systolic Blood Pressure 135.00 mm[Hg] Mon 27 09:44:39 EDT 2024 Diastolic Blood Pressure 77.00 mm[Hg] Kelsy May 02 09:44:39 EDT 2024 Systolic Blood Pressure 135.00 mm[Hg] Kelsy May 02 09:44:39 EDT 2024 Diastolic Blood Pressure 77.00 mm[Hg] Kelsy May 02 09:44:39 EDT 2024 Heart Rate 77.00 /min MonMay 02 09:44 :39 EDT 2024 Heart Rate 77.00 /min Kelsy May 02 09:44 :39 EDT 2024 Systolic Blood Pressure 126.00 mm[Hg] MonMay 02 04:14:06 EDT 2024 Diastolic Blood Pressure 77.00 mm[Hg] Kelsy May 02 04:14:06 EDT 2024 Heart Rate 88.00 /min Kelsy May 02 04:14 :06 EDT 2024 Body temperature 97.80 [...] 2024 Systolic Blood Pressure 147.00 mm[Hg] Mon 24 10:10:07 EDT 2024 Diastolic Blood Pressure 96.00 mm[Hg] Mon 24 10:10:07 EDT 2024 Systolic Blood Pressure 147.00 mm[Hg] Mon 24 10:10:07 EDT 2024 Diastolic Blood Pressure 96.00 mm[Hg] Mon 24 10:10:07 EDT 2024 Heart Rate 73.00 /min Mon 24 10:10 :07 EDT 2024 Heart Rate 73.00 /min MonApr 29 10:10 :07 EDT 2025 Systolic Blood Pressure 98.00 mm[Hg] Sun Mar [...] mm[Hg] Sun Mar 23 09:47:46 EDT 2024 Heart Rate 85.00 /min Sun [...] 2024 Systolic Blood Pressure 102.00 mm[Hg] Mon Mar 21 21:17:08 EDT 2024 Diastolic Blood Pressure 60.00 mm[Hg] Mon Mar 21 21:17:08 EDT 2024 Heart Rate 82.00 /min Mon Mar 21:17 :08 EDT 2024 Systolic Blood Pressure 148.00 mm[Hg] Mon 21 09:00:18 EDT 2024 Diastolic Blood Pressure 72.00 mm[Hg] MonApr 26 09:00:18 EDT 2024 Systolic Blood Pressure 148.00 mm[Hg] MonApr 26 09:00:18 EDT 2025 Diastolic Blood Pressure 72.00 mm[Hg] Mon 21 09:00:18 EDT 2024 Heart Rate 90.00 /min MonApr 26 09:00 :18 EDT 2024 Heart Rate 90.00 /min MonApr 26 09:00 :18 EDT 2024 Systolic Blood Pressure 148.00 mm[Hg] Mon 21 08:29:38 EDT 2024 Diastolic Blood Pressure 72.00 mm[Hg] Mon 21 08:29:38 EDT 2024 Heart Rate 90.00 /min MonApr 26 08:29 :38 EDT 2024 Systolic Blood Pressure 127.00 mm[Hg] Kelsyapr 20 20:31:23 EDT 2024 Diastolic Blood Pressure 78.00 mm[Hg] Kelsyapr 20 20:31:23 EDT 2024 Heart Rate 72.00 /min Kelsyapr 20 20:31 :23 EDT 2024 Systolic Blood Pressure 132.00 mm[Hg] Kelsyapr 20 09:51:23 EDT 2024 Diastolic Blood Pressure 84.00 mm[Hg] Kelsyapr 20 09:51:23 EDT 2024 Systolic Blood Pressure 132.00 mm[Hg] Kelsyapr 20 09:51:23 EDT 5 Diastolic Blood Pressure 84.00 mm[Hg] Kelsyapr 20 09:51:23 EDT 2024 Heart Rate 79.00 /min Kelsyapr 20 09:51 :23 EDT 2024 Heart Rate 79.00 /min Kelsyapr 20 09:51 :23 EDT 5 Systolic Blood Pressure 132.00 mm[Hg] Kelsyapr 20 07:38:19 EDT 2024 Diastolic Blood Pressure 84.00 mm[Hg] Kelsyapr 20 07:38:19 EDT 2024 Heart Rate 79.00 /min Kelsyapr 20 07:38 :19 EDT 2024 Pulse Oximetry 98.00 % Mon 20 07:38 :19 EDT 2024 Systolic Blood Pressure 85.00 mm[Hg] Mon 19 22:54:42 EDT 2024 Diastolic Blood Pressure 57.00 mm[Hg] Mon 19 22:54:42 EDT 2024 Heart Rate 84.00 /min Mon 19 22:54 :42 EDT 2024 Body temperature 98.50 [degF] Mon 19 22:5 4:42 EDT 2024 Respiratory rate 18.00 /min Wed Mar 19 22:5 4:42 EDT 2024 Pulse Oximetry 96.00 % Mon 19 22:54 :42 EDT 2024 Systolic Blood Pressure 85.00 mm[Hg] Mon 19 20:31:23 EDT 2024 Diastolic Blood Pressure 57.00 mm[Hg] Mon 19 20:31:23 EDT 2024 Heart Rate 84.00 /min Mon 19 20:31 :23 EDT 2024 Systolic Blood Pressure 107.00 mm[Hg] Mon 19 16:00:13 EDT 2024 Diastolic Blood Pressure 69.00 mm[Hg] Mon 19 16:00:13 EDT 2024 Heart Rate 76.00 /min Mon 19 16:00 :13 EDT 2024 Pulse Oximetry 98.00 % Mon 19 16:00 :13 EDT 2024 Respiratory rate 17.00 /min Mon 19 16:0 0:13 EDT 2024 Body temperature 98.20 [...] Pressure 68.00 mm[Hg] Mon 18 22:48:27 EDT 2024 Heart Rate 76.00 /min Mon 18 22:48 :27 EDT 2024 Systolic Blood Pressure 140.00 mm[Hg] Mon 18 08:42:10 EDT 2024 Diastolic Blood Pressure 69.00 mm[Hg] Mon 18 08:42:10 EDT 2024 Systolic Blood Pressure 140.00 mm[Hg] Mon 18 08:42:10 EDT 2024 Diastolic Blood Pressure 69.00 mm[Hg] Mon 18 08:42:10 EDT 2025 Heart Rate 88.00 /min Mon 18 08:42 :10 EDT 2024 Heart Rate 88.00 /min Mon 18 08:42 :10 EDT 2024 Systolic Blood Pressure 140.00 mm[Hg] Mon 18 07:57:17 EDT 5 Diastolic Blood Pressure 69.00 mm[Hg] Mon 18 07:57:17 EDT 2024 Heart Rate 88.00 /min Mon 18 07:57 :17 EDT 5 Systolic Blood Pressure 98.00 mm[Hg] Mon 17 20:24:38 EDT 2024 Diastolic Blood Pressure 68.00 mm[Hg] Mon Apr 17 20:24:38 EDT 2024 Heart Rate 72.00 /min Mon 17 20:24 :38 EDT 2024 Body weight 209.20 [lb_av] Mon Apr 17 14:09 :00 EDT 2024 Systolic Blood Pressure 99.00 mm[Hg] Mon Mar 17 09:48:51 EDT 2024 Diastolic Blood Pressure 61.00 mm[Hg] Mon Apr 17 09:48:51 EDT 5 Systolic Blood Pressure 99.00 mm[Hg] Mon Apr 17 09:48:51 EDT 5 Diastolic Blood Pressure 61.00 mm[Hg] Mon Apr 17 09:48:51 EDT 5 Heart Rate 54.00 /min Mon Apr 17 09:48 :51 EDT 5 Heart Rate 54.00 /min Mon Apr 17 09:48 :51 EDT 5 Systolic Blood Pressure 101.00 mm[Hg] Sun Mar 16 20:46:45 EDT 2024 Diastolic Blood Pressure 56.00 mm[Hg] Sun Mar 16 20:46:45 EDT 2024 Heart Rate 81.00 /min Sun Mar 16 20:46 :45 EDT 5 Systolic Blood Pressure 98.00 mm[Hg] [...] EDT 2024 Systolic Blood Pressure 100.00 mm[Hg] Mon 14 23:48:36 EDT 2024 Diastolic Blood Pressure 64.00 mm[Hg] Mon 14 23:48:36 EDT 2024 Heart Rate 86.00 /min Mon 14 23:48 :36 EDT 2024 Systolic Blood Pressure 114.00 mm[Hg] Mon 14 10:07:32 EDT 2024 Diastolic Blood Pressure 64.00 mm[Hg] Mon 14 10:07:32 EDT 2024 Systolic Blood Pressure 114.00 mm[Hg] Mon 14 10:07:32 EDT 2024 Diastolic Blood Pressure 64.00 mm[Hg] Mon 14 10:07:32 EDT 2024 Heart Rate 96.00 /min Mon 14 10:07 :32 EDT 2024 Heart Rate 96.00 /min Mon 14 10:07 :32 EDT 2024 Systolic Blood Pressure 126.00 mm[Hg] [facility] Apr 13 20:25:47 EDT 2024 Diastolic Blood Pressure 74.00 mm[Hg] Kelsy Apr 13 20:25:47 EDT 2024 Heart Rate 82.00 /min Mon 13 20:25 :47 EDT 2024 Systolic Blood Pressure 131.00 mm[Hg] Kelsy Apr 13 09:34:54 EDT 2024 Diastolic Blood Pressure 76.00 mm[Hg] Kelsy Apr 13 09:34:54 EDT 2024 Systolic Blood Pressure 131.00 mm[Hg] Mon 13 09:34:54 EDT 2024 Diastolic Blood Pressure 76.00 mm[Hg] Kelsy Apr 13 09:34:54 EDT 2024 Heart Rate 84.00 /min Mon 13 09:34 :54 EDT 2024 Heart Rate 84.00 /min Mon 13 09:34 :54 EDT 2024 Systolic Blood Pressure 131.00 mm[Hg] Mon 13 07:57:52 EDT 2024 Diastolic Blood Pressure 76.00 mm[Hg] Kelsyapr 13 07:57:52 EDT 2024 Pulse Oximetry 98.00 % Mon 13 07:57 :52 EDT 2024 Heart Rate 84.00 /min Mon 13 07:57 :52 EDT 2024 Systolic Blood Pressure 88.00 mm[Hg] Mon 13 03:34:36 EDT 2024 Diastolic Blood Pressure 49.00 mm[Hg] Mon 13 03:34:36 EDT 2024 Heart Rate 78.00 /min Mon 13 03:34 :36 EDT 2024 Body temperature 97.50 [degF] Mon 13 03:3 4:36 EDT 2024 Respiratory rate 18.00 /min Mon 13 03:3 4:36 EDT 2024 Pulse Oximetry 96.00 % Mon 13 03:34 :36 EDT 2024 Systolic Blood Pressure 88.00 mm[Hg] MonApr 17 21:13:41 EDT 2024 Diastolic Blood Pressure 49.00 mm[Hg] MonApr 17 21:13:41 EDT 2024 Heart Rate 85.00 /min MonApr 17 21:13 :41 EDT 2024 Systolic Blood Pressure 98.00 mm[Hg] MonApr 17 17:42:18 EDT 2024 Diastolic Blood Pressure 57.00 mm[Hg] MonApr 17 17:42:18 EDT 2024 Heart Rate 84.00 /min Wed Mar 12 17:42 :18 EDT 2024 Pulse Oximetry 94.00 % Mon 12 17:42 :18 EDT 2024 Systolic Blood Pressure 131.00 mm[Hg] Mon 12 09:34:20 EDT 2024 Diastolic Blood Pressure 80.00 mm[Hg] Mon 12 09:34:20 EDT 2024 Systolic Blood Pressure 131.00 mm[Hg] Mon 12 09:34:20 EDT 2024 Diastolic Blood Pressure 80.00 mm[Hg] Mon 12 09:34:20 EDT 2024 Heart Rate 82.00 /min Mon [...] Pressure 87.00 mm[Hg] Mon 11 20:12:13 EDT 2024 Heart Rate 78.00 /min Mon 11 20:12 :13 EDT 2024 Systolic Blood Pressure 129.00 mm[Hg] Mon 11 09:55:08 EDT 2024 Diastolic Blood Pressure 77.00 mm[Hg] Mon 11 09:55:08 EDT 2024 Systolic Blood Pressure 129.00 mm[Hg] Mon 11 09:55:08 EDT 2024 Diastolic Blood Pressure 77.00 mm[Hg] Mon 11 09:55:08 EDT 2024 Heart Rate 64.00 /min Mon 11 09:55 :08 EDT 2024 Heart Rate 64.00 /min MonApr 16 09:55 :08 EDT 2024 Systolic Blood Pressure 122.00 mm[Hg] Mon 10 21:34:35 EDT 2024 Diastolic Blood Pressure 61.00 mm[Hg] Mon 10 21:34:35 EDT 2024 Heart Rate 83.00 /min Mon 10 21:34 :35 EDT 2024 Body weight 196.80 [lb_av] Mon 10 14:12 :20 EDT 2024 Systolic Blood Pressure 132.00 mm[Hg] Mon Mar 10 09:45:56 EDT 2024 Diastolic Blood Pressure 80.00 mm[Hg] Mon Mar 10 09:45:56 EDT 2024 Systolic Blood Pressure 132.00 mm[Hg] Mon Mar 10 09:45:56 EDT 2024 Diastolic Blood Pressure 80.00 mm[Hg] Mon Mar 09:45:56 EDT 2024 Heart Rate 93.00 /min Mon Mar 10 09:45 :56 EDT 2024 Heart Rate 93.00 /min Mon Mar 09:45 :56 EDT 2024 Systolic Blood Pressure 132.00 mm[Hg] Mon Mar 09:01:48 EDT 2024 Diastolic Blood Pressure 80.00 mm[Hg] Mon Mar 09:01:48 EDT 2024 Heart Rate 93.00 /min Mon Mar 09:01 :48 EDT 2024 Systolic Blood Pressure 103.00 mm[Hg] Sun Mar 23:02:13 EDT 2024 Diastolic Blood Pressure 59.00 mm[Hg] Sun Mar 23:02:13 EDT 2024 Heart Rate 85.00 /min [...] /min Sun Mar 09:33 :01 EDT 2024 Systolic Blood Pressure 120.00 mm[Hg] Sun Mar 07:49:28 EDT 2024 Diastolic Blood Pressure 71.00 [...] EST 2024 Heart Rate 65.00 /min Sat Apr 08 09:36 :40 EST 2024 Systolic Blood [...] 08:02:43 EST 2024 Heart Rate 86.00 /min Mon 07 08:02 :43 EST 2024 Pulse Oximetry 97.00 % Mon 07 08:02 :43 EST 2024 Systolic Blood Pressure 126.00 mm[Hg] Mon 06 20:56:56 EST 2024 Diastolic Blood Pressure 72.00 mm[Hg] Mon 06 20:56:56 EST 2024 Heart Rate 88.00 /min Mon 06 20:56 :56 EST 5 Systolic Blood Pressure 117.00 mm[Hg] Mon 06 11:45:28 EST 2024 Diastolic Blood Pressure 64.00 mm[Hg] Kelsy Mar 06 11:45:28 EST 2024 Systolic Blood Pressure 117.00 [...] EST 2024 Diastolic Blood Pressure 55.00 mm[Hg] Tue Mar 04 21:15:26 EST 2024 Heart Rate 61.00 /min Mon 04 21:15 :26 EST 2024 Systolic Blood Pressure 132.00 mm[Hg] Mon 04 10:34:40 EST 2024 Diastolic Blood Pressure 80.00 mm[Hg] Mon 04 10:34:40 EST 2024 Systolic Blood Pressure 132.00 mm[Hg] Mon 04 10:34:40 EST 2024 Diastolic Blood Pressure 80.00 mm[Hg] Mon 04 10:34:40 EST 2024 Heart Rate 84.00 /min Mon 04 10:34 :40 EST 2024 Heart Rate 84.00 [...] Diastolic Blood Pressure 66.00 mm[Hg] MonApr 08 07:49:11 EST 2024 Pulse Oximetry 96.00 % MonApr 08 07:49 :11 EST 2024 Heart Rate 83.00 /min MonApr 08 07:49 :11 EST 2024 Systolic Blood Pressure 115.00 mm[Hg] MonApr 07 23:23:20 EST 2024 Diastolic Blood Pressure 78.00 mm[Hg] MonApr 07 23:23:20 EST 2024 Heart Rate 64.00 /min MonApr 07 23:23 :20 EST 2024 Systolic Blood Pressure 128.00 mm[Hg] Mon 09:55:49 EST 2024 Diastolic Blood Pressure 76.00 [...] Diastolic Blood Pressure 76.00 mm[Hg] Sun Mar 08:32:53 EST 2024 Heart Rate 95.00 /min Sun Mar 08:32 :53 EST 2024 Pulse Oximetry 97.00 % Sun Mar 08:32 :53 EST 2024 Systolic Blood Pressure 100.00 mm[Hg] Sat Mar 23:01:52 EST 2024 Diastolic Blood Pressure 86.00 mm[Hg] Sat Mar 23:01:52 EST 2024 Heart Rate 85.00 /min Sat Mar 23:01 :52 EST 2024 Systolic Blood Pressure 136.00 mm[Hg] Sat Mar 09:43:23 EST 2024 Diastolic Blood Pressure 82.00 mm[Hg] Sat Mar 09:43:23 EST 2024 Systolic Blood Pressure 136.00 mm[Hg] Sat Mar 09:43:23 EST 2024 Diastolic Blood Pressure 82.00 mm[Hg] Sat Mar 09:43:23 EST 2024 Heart Rate 78.00 /min Sat Mar 09:43 :23 EST 2024 Heart Rate 78.00 /min Sat Mar 09:43 :23 EST 2024 Systolic Blood Pressure 123.00 mm[Hg] Sat Mar 07:27:15 EST 2024 Diastolic Blood Pressure 72.00 mm[Hg] Sat Mar 07:27:15 EST 2024 Heart Rate 75.00 /min Sat Mar 07:27 :15 EST 2024 Pulse Oximetry 97.00 % Sat Mar 07:27 :15 EST 2024 Systolic Blood Pressure 104.00 mm[Hg] MonApr 05 20:28:18 EST 2024 Diastolic Blood Pressure 59.00 mm[Hg] MonApr 05 20:28:18 EST 2024 Heart Rate 62.00 /min Fri Feb 28 20:28 :18 EST 5 Systolic Blood Pressure 174.00 mm[Hg] Fri Feb 28 10:11:10 EST 5 Diastolic Blood Pressure 92.00 mm[Hg] Fri Feb 28 10:11:10 EST 5 Systolic Blood Pressure 174.00 mm[Hg] Fri Feb 28 10:11:10 EST 5 Diastolic Blood Pressure 92.00 mm[Hg] Fri Feb 28 10:11:10 EST 5 Heart Rate 100.00 /min Fri Feb 28 10:11 :10 EST 5 Heart Rate 100.00 /min Fri Feb 28 10:11 :10 EST 5 Systolic Blood Pressure 121.00 mm[Hg] Mon Feb 28 08:07:43 EST 5 Diastolic Blood Pressure 68.00 mm[Hg] Fri Feb 28 08:07:43 EST 2024 Pulse Oximetry 97.00 % Mon Feb 28 08:07 :43 EST 2024 Heart Rate 76.00 /min Fri Feb 28 08:07 :43 EST 5 Systolic Blood Pressure 124.00 mm[Hg] Kelsy Feb [...] 111.00 mm[Hg] Kelsy Feb 27 09:14:27 EST 2025 Diastolic Blood Pressure 64.00 mm[Hg] Kelsy Feb 27 09:14:27 EST 2025 Heart Rate 91.00 /min Kelsy Feb 27 09:14 :27 EST 2025 Heart Rate 91.00 /min Kelsy Feb 27 09:14 :27 EST 2025 Systolic Blood Pressure 111.00 mm[Hg] Kelsy Feb 27 08:45:52 EST 2025 Diastolic Blood Pressure 64.00 mm[Hg] Kelsy Feb 27 08:45:52 EST 2025 Heart Rate 91.00 /min Kelsy Feb 27 08:45 :52 EST 2025 Systolic Blood Pressure 90.00 mm[Hg] Wed Feb 26 20:47:51 EST 2025 Diastolic Blood Pressure 59.00 mm[Hg] Wed Feb 26 20:47:51 EST 5 Systolic Blood Pressure 90.00 mm[Hg] Wed Feb 26 20:47:51 EST 5 Diastolic Blood Pressure 59.00 mm[Hg] Wed Feb 26 20:47:51 EST 2025 Heart Rate 65.00 /min Wed Feb 26 20:47 :51 EST 2025 Pulse Oximetry 78.00 % Wed Feb 26 20:47 :51 EST 2025 Heart Rate 65.00 /min Wed Feb 26 20:47 :51 EST 2025 Respiratory rate 18.00 /min Wed Feb 26 20:4 7:51 EST 5 Body temperature 97.70 [degF] Wed Feb 26 20:4 7:51 EST 5 Systolic Blood Pressure 90.00 mm[Hg] Wed Feb 26 15:39:29 EST 5 Diastolic Blood Pressure 59.00 mm[Hg] Wed Feb 26 15:39:29 EST 5 Respiratory rate 18.00 /min Wed Feb 26 15:3 9:29 EST 5 Pulse Oximetry 98.00 % Wed Feb 26 15:39 :29 EST 5 Heart Rate 88.00 /min Wed Feb 26 15:39 :29 EST 5 Body temperature 98.00 [degF] Wed Feb 26 15:3 9:29 EST 5 Systolic Blood Pressure 124.00 mm[Hg] Wed Feb 26 09:24:35 EST 5 Diastolic Blood Pressure 89.00 mm[Hg] Wed Feb 26 09:24:35 EST 5 Systolic Blood Pressure 124.00 mm[Hg] Wed Feb 26 09:24:35 EST 2025 Diastolic Blood Pressure 89.00 mm[Hg] Wed Feb 26 09:24:35 EST 2025 Heart Rate 82.00 /min Wed Feb 26 09:24 :35 EST 2025 Heart Rate 82.00 /min Wed Feb 26 09:24 :35 EST 5 Systolic Blood Pressure 124.00 mm[Hg] Wed Feb 26 08:27:25 EST 2025 Diastolic Blood Pressure 89.00 mm[Hg] Wed Feb 26 08:27:25 EST 2025 Pulse Oximetry 96.00 % Wed Feb 26 08:27 :25 EST 2025 Heart Rate 82.00 /min Wed Feb 26 08:27 :25 EST 2025 Systolic Blood Pressure 136.00 mm[Hg] Monb 20:49:30 EST 2024 Diastolic Blood Pressure 74.00 mm[Hg] Monb 20:49:30 EST 2024 Heart Rate 78.00 /min Monb 20:49 :30 EST 2024 Systolic Blood Pressure 125.00 mm[Hg] Mon Feb 10:07:25 EST 2024 Diastolic Blood Pressure 81.00 mm[Hg] Mon Feb 10:07:25 EST 2024 Systolic Blood Pressure 125.00 mm[Hg] Monb 10:07:25 EST 2024 Diastolic Blood Pressure 81.00 mm[Hg] Mon Feb 10:07:25 EST 2024 Heart Rate 90.00 /min Monb 10:07 :25 EST 2024 Heart Rate 90.00 /min Mon Feb 10:07 :25 EST 2024 Systolic Blood Pressure 125.00 mm[Hg] Monb 07:49:22 EST 2024 Diastolic Blood Pressure 81.00 mm[Hg] Monb 07:49:22 EST 2024 Heart Rate 90.00 /min Monb 07:49 :22 EST 2024 Pulse Oximetry 98.00 % Monb 07:49 :22 EST 2024 Systolic Blood Pressure 132.00 mm[Hg] Monb 20:55:36 EST 2024 Diastolic Blood Pressure 73.00 mm[Hg] Monb 20:55:36 EST 2024 Heart Rate 78.00 /min Monb 20:55 :36 EST 2024 Body weight 194.60 [lb_av] Monb 15:54 :41 EST 2024 Body weight 194.60 [lb_av] Monb 24 15:42 :32 EST 2024 Systolic Blood Pressure 122.00 mm[Hg] Mon Feb 24 09:53:56 EST 2024 Diastolic Blood Pressure 74.00 mm[Hg] Mon Feb 24 09:53:56 EST 2024 Systolic Blood Pressure 122.00 mm[Hg] Mon Feb 24 09:53:56 EST 2024 Diastolic Blood Pressure 74.00 mm[Hg] Mon Feb 24 09:53:56 EST 2024 Heart Rate 84.00 /min Monb 24 09:53 :56 EST 2025 Heart Rate 84.00 /min Mon Feb 24 09:53 :56 EST 2024 Systolic Blood Pressure 122.00 mm[Hg] Mon Feb 24 08:04:28 EST 2024 Diastolic Blood Pressure 74.00 mm[Hg] Mon Feb 24 08:04:28 EST 5 Heart Rate 84.00 /min Mon Feb 24 08:04 :28 EST 5 Systolic Blood Pressure 109.00 mm[Hg] Sun Feb 23 20:02:32 EST 2024 Diastolic Blood Pressure 66.00 mm[Hg] Sun Feb 23 20:02:32 EST 5 Heart Rate 56.00 /min Sun Feb 23 20:02 :32 EST 2024 Systolic Blood Pressure 146.00 mm[Hg] Sun Feb 23 09:30:40 EST 2024 Diastolic Blood Pressure 78.00 mm[Hg] Sun Feb 23 09:30:40 EST 2024 Systolic Blood Pressure 146.00 mm[Hg] Sun Feb 23 09:30:40 EST 2024 Diastolic Blood Pressure 78.00 mm[Hg] Sun Feb 23 09:30:40 EST 2024 Heart Rate 74.00 /min Sun Feb 23 09:30 :40 EST 5 Heart Rate 74.00 /min Sun Feb 23 09:30 :40 EST 2024 Systolic Blood Pressure 132.00 mm[Hg] Sun Feb 23 07:49:42 EST 2024 Diastolic Blood Pressure 76.00 mm[Hg] Sun Feb 23 07:49:42 EST 5 Heart Rate 90.00 /min Sun Feb 23 07:49 :42 EST 2024 Pulse Oximetry 100.00 % Sun Feb 23 07:49 :42 EST 2024 Systolic Blood Pressure 113.00 mm[Hg] Sat Feb 22 21:02:19 EST 5 Diastolic Blood Pressure 57.00 mm[Hg] Sat Feb 22 21:02:19 EST 5 Heart Rate 85.00 /min Sat Feb 22 21:02 :19 EST 5 Systolic Blood Pressure 116.00 mm[Hg] Sat Feb 22 09:16:09 EST 5 Diastolic Blood Pressure 74.00 mm[Hg] Sat Feb 22 09:16:09 EST 5 Systolic Blood Pressure 116.00 mm[Hg] Sat Feb 22 09:16:09 EST 5 Diastolic Blood Pressure 74.00 mm[Hg] Sat Feb 22 09:16:09 EST 5 Heart Rate 78.00 /min Sat Feb 22 09:16 :09 EST 5 Heart Rate 78.00 /min Sat Feb 22 09:16 :09 EST 5 Systolic Blood Pressure 112.00 mm[Hg] Sat Feb 22 08:09:05 EST 5 Diastolic Blood Pressure 71.00 mm[Hg] Sat Feb 22 08:09:05 EST 5 Heart Rate 80.00 /min Sat Feb 22 08:09 :05 EST 2024 Systolic Blood Pressure 94.00 mm[Hg] Fri Feb 21 20:09:07 EST 5 Diastolic Blood Pressure 59.00 mm[Hg] Fri Feb 21 20:09:07 EST 5 Heart Rate 89.00 /min Fri Feb 21 [...] /min Fri Feb 21 09:00 :50 EST 2024 Systolic Blood Pressure 108.00 mm[Hg] Fri Feb 21 08:29:08 EST 5 Diastolic Blood Pressure 81.00 mm[Hg] Fri Feb 21 08:29:08 EST 2024 Heart Rate 84.00 /min Fri Feb 21 08:29 :08 EST 2024 Systolic Blood Pressure 135.00 mm[Hg] Kelsy Feb 20 20:43:53 EST 2024 Diastolic Blood Pressure 78.00 mm[Hg] [...] /min Kelsy Feb 20 08:56 :45 EST 5 Systolic Blood Pressure 132.00 mm[Hg] Kelsy Feb 20 07:41:48 EST 5 Diastolic Blood Pressure 74.00 mm[Hg] Kelsy Feb [...] 73.00 mm[Hg] Wed Feb 19 20:50:59 EST 2024 Heart Rate 68.00 /min Wed Feb 19 20:50 :59 EST 2024 Systolic Blood Pressure 107.00 mm[Hg] Wed Feb 19 09:43:26 EST 2024 Diastolic Blood Pressure 64.00 mm[Hg] Wed Feb 19 09:43:26 EST 5 Systolic Blood Pressure 107.00 mm[Hg] Wed Feb 19 09:43:26 EST 2024 Diastolic Blood Pressure 64.00 mm[Hg] Wed Feb 19 09:43:26 EST 2024 Heart Rate 62.00 /min Wed Feb 19 09:43 :26 EST 5 Heart Rate 62.00 /min Wed Feb 19 09:43 :26 EST 5 Systolic Blood Pressure 98.00 mm[Hg] Tue Feb 18 20:36:14 EST 5 Diastolic Blood Pressure 61.00 mm[Hg] Tue Feb 18 20:36:14 EST 2024 Heart Rate 72.00 /min Monb 18 20:36 :14 EST 5 Body weight 189.60 [lb_av] Monb 18 16:28 :52 EST 5 Systolic Blood Pressure 95.00 mm[Hg] Monb 18 10:00:08 EST 5 Diastolic Blood Pressure 63.00 mm[Hg] Mon Feb 18 10:00:08 EST 5 Systolic Blood Pressure 95.00 mm[Hg] Monb 18 10:00:08 EST 5 Diastolic Blood Pressure 63.00 mm[Hg] Mon Feb 18 10:00:08 EST 2024 Heart Rate 90.00 /min Mon Feb 18 10:00 :08 EST 2024 Heart Rate 90.00 /min Mon Feb 18 10:00 :08 EST 5 Systolic Blood Pressure 118.00 mm[Hg] Mon Feb 17 20:31:37 EST 5 Diastolic Blood Pressure 75.00 mm[Hg] Mon Feb 17 20:31:37 EST 2024 Heart Rate 72.00 /min Mon Feb 17 [...] 65.00 mm[Hg] Mon Feb 17 08:25:11 EST 5 Heart Rate 82.00 /min Mon Feb 17 08:25 :11 EST 5 Systolic Blood Pressure 104.00 mm[Hg] Sun Feb 16 22:21:47 EST 5 Diastolic Blood Pressure 64.00 mm[Hg] Sun Feb 16 22:21:47 EST 2024 Heart Rate 85.00 /min Sun Feb 16 22:21 :47 EST 2025 Systolic Blood Pressure 118.00 mm[Hg] Sun Feb 16 09:58:45 EST 2024 Diastolic Blood Pressure 70.00 mm[Hg] Sun Feb 16 09:58:45 EST 2024 Systolic Blood Pressure 118.00 mm[Hg] Sun Feb 16 09:58:45 EST 2024 Diastolic Blood Pressure 70.00 mm[Hg] Sun Feb 16 09:58:45 EST 2024 Heart Rate 81.00 /min Sun Feb 16 09:58 :45 EST 2024 Heart Rate 81.00 /min Sun Feb 16 09:58 :45 EST 2024 Systolic Blood Pressure 118.00 mm[Hg] Sun Feb 16 08:35:09 EST 2024 Diastolic Blood Pressure 70.00 mm[Hg] Sun Feb 16 08:35:09 EST 2024 Heart Rate 81.00 /min Sun Feb 16 08:35 :09 EST 2024 Systolic Blood Pressure 110.00 mm[Hg] Sat Feb 15 20:05:41 EST 2024 Diastolic Blood Pressure 63.00 mm[Hg] Sat Feb 15 20:05:41 EST 5 Heart Rate 59.00 /min Sat Feb 15 20:05 :41 EST 5 Systolic Blood Pressure 109.00 mm[Hg] Sat Feb 15 09:24:56 EST 5 Diastolic Blood Pressure 69.00 mm[Hg] Sat Feb 15 09:24:56 EST 5 Systolic Blood Pressure 109.00 mm[Hg] Sat Feb 15 09:24:56 EST 5 Diastolic Blood Pressure 69.00 mm[Hg] Sat Feb 15 09:24:56 EST 5 Heart Rate 79.00 /min Sat Feb 15 09:24 :56 EST 5 Heart Rate 79.00 /min Sat Feb 15 09:24 :56 EST 5 Systolic Blood Pressure 109.00 mm[Hg] Sat Feb 15 08:30:44 EST 5 Diastolic Blood Pressure 69.00 mm[Hg] Sat Feb 15 08:30:44 EST 5 Heart Rate 79.00 /min Sat Feb 15 08:30 :44 EST 2024 Pulse Oximetry 95.00 % Sat Feb 15 08:30 :44 EST 5 Systolic Blood Pressure 114.00 mm[Hg] Fri Feb 14 20:05:44 EST 2024 Diastolic Blood Pressure 66.00 mm[Hg] Fri Feb 14 20:05:44 EST 2024 Heart Rate 83.00 /min Fri Feb 14 20:05 :44 EST 5 Systolic Blood Pressure 100.00 mm[Hg] Fri Feb 14 09:57:14 EST 5 Diastolic Blood Pressure 65.00 mm[Hg] Fri Feb 14 09:57:14 EST 5 Systolic Blood Pressure 100.00 mm[Hg] Fri Feb 14 09:57:14 EST 2024 Diastolic Blood Pressure 65.00 mm[Hg] Fri Feb 14 09:57:14 EST 2024 Heart Rate 78.00 /min Fri Feb 14 09:57 :14 EST 5 Heart Rate 78.00 /min Fri Feb 14 [...] 76.00 mm[Hg] [facility] Feb 13 11:04:21 EST 5 Heart Rate 94.00 /min K[facility] Feb 13 11:04 :21 EST 5 Heart Rate 94.00 /min [facility] Feb 13 [...] /min Kelsy Feb 13 04:2 0:22 EST 5 Body temperature 97.80 [degF] Kelsy Feb 13 04:2 0:22 EST 5 Systolic Blood Pressure 110.00 mm[Hg] Wed Feb 12 20:27:30 EST 5 Diastolic Blood Pressure 61.00 mm[Hg] Wed Feb 12 20:27:30 EST 5 Heart Rate 84.00 /min Wed Feb 12 20:27 :30 EST 5 Respiratory rate 18.00 /min Wed Feb 12 20:0 3:50 EST 5 Systolic Blood Pressure 110.00 mm[Hg] Wed Feb 12 20:03:45 EST 5 Diastolic Blood Pressure 61.00 mm[Hg] Wed Feb 12 20:03:45 EST 5 Body temperature 98.10 [degF] Wed Feb 12 20:0 3:29 EST 5 Heart Rate 84.00 /min Wed Feb 12 [...] /min Wed Feb 12 09:46 :14 EST 2025 Systolic Blood Pressure 128.00 mm[Hg] Tue Feb 11 20:10:58 EST 5 Diastolic Blood Pressure 74.00 mm[Hg] Tue Feb 11 20:10:58 EST 5 Heart Rate 68.00 /min Tue Feb 11 20:10 :58 EST 5 Systolic Blood Pressure 122.00 mm[Hg] Tue Feb 11 09:24:22 EST 5 Diastolic Blood Pressure 68.00 mm[Hg] Tue Feb 11 09:24:22 EST 5 Systolic Blood Pressure 122.00 mm[Hg] Tue Feb 11 09:24:22 EST 2025 Diastolic Blood Pressure 68.00 mm[Hg] e Feb 09:24:22 EST 2024 Heart Rate 76.00 /min e Feb 09:24 :22 EST 2024 Heart Rate 76.00 /min e Feb 09:24 :22 EST 5 Systolic Blood Pressure 122.00 mm[Hg] e Feb 07:47:15 EST 5 Diastolic Blood Pressure 68.00 mm[Hg] Mon Feb 07:47:15 EST 5 Systolic Blood Pressure 122.00 mm[Hg] Mon Feb 07:47:15 EST 5 Diastolic Blood Pressure 68.00 mm[Hg] e Feb 07:47:15 EST 2024 Pulse Oximetry 92.00 % Mon Feb 07:47 :15 EST 2024 Pulse Oximetry 92.00 % Mon Feb 07:47 :15 EST 2024 Heart Rate 76.00 /min Mon Feb 07:47 :15 EST 2024 Heart Rate 76.00 /min Mon Feb 07:47 :15 EST 5 Systolic Blood Pressure 98.00 mm[Hg] Mon Feb 10 20:39:37 EST 5 Diastolic Blood Pressure 69.00 mm[Hg] Mon Feb 10 20:39:37 EST 2024 Heart Rate 82.00 /min Mon Feb 10 20:39 :37 EST 2024 Body weight 202.60 [lb_av] Mon Feb 10 19:00 :53 EST 5 Systolic Blood Pressure 105.00 mm[Hg] Mon Feb 10 09:49:26 EST 5 Diastolic Blood Pressure 69.00 mm[Hg] Mon Feb 10 09:49:26 EST 2025 Systolic Blood Pressure 105.00 mm[Hg] Mon Feb 10 09:49:26 EST 5 Diastolic Blood Pressure 69.00 mm[Hg] Mon Feb 10 09:49:26 EST 2024 Heart Rate 92.00 /min Mon Feb 10 09:49 :26 EST 5 Heart Rate 92.00 /min Mon Feb 10 09:49 :26 EST 5 Systolic Blood Pressure 105.00 mm[Hg] Mon Feb 10 07:52:39 EST 5 Diastolic Blood Pressure 69.00 mm[Hg] Mon Feb 10 07:52:39 EST 5 Systolic Blood Pressure 105.00 mm[Hg] [...] Systolic Blood Pressure 108.00 mm[Hg] Sun Feb 09 20:15:14 EST 2024 Diastolic Blood Pressure 64.00 mm[Hg] Sun Feb 09 20:15:14 EST 2024 Heart Rate 86.00 /min Sun Feb 09 20:15 :14 EST 2024 Systolic Blood Pressure 119.00 mm[Hg] Sun Feb 09 10:00:00 EST 2024 Diastolic Blood Pressure 68.00 mm[Hg] Sun Feb 09 10:00:00 EST 2024 Systolic Blood Pressure 119.00 mm[Hg] Sun Feb 09 10:00:00 EST 2024 Diastolic Blood Pressure 68.00 mm[Hg] Sun Feb 09 10:00:00 EST 2024 Heart Rate 85.00 /min Sun Feb 09 10:00 :00 EST 2024 Heart Rate 85.00 /min Sun Feb 09 10:00 :00 EST 2024 Systolic Blood Pressure 119.00 mm[Hg] Sun Feb 07:38:39 EST 2024 Diastolic Blood Pressure 68.00 mm[Hg] Sun Feb 07:38:39 EST 2024 Systolic Blood Pressure 119.00 mm[Hg] Sun Feb 07:38:39 EST 2024 Diastolic Blood Pressure 68.00 mm[Hg] Sun Feb 07:38:39 EST 2024 Heart Rate 85.00 /min [...] 64.00 mm[Hg] Sat Feb 08 20:05:20 EST 5 Heart Rate 89.00 /min Sat Feb 08 20:05 :20 EST 5 Systolic Blood Pressure 102.00 mm[Hg] Sat Feb 08 10:58:38 EST 5 Diastolic Blood Pressure 53.00 mm[Hg] Sat Feb 08 10:58:38 EST 5 Systolic Blood Pressure 102.00 mm[Hg] Sat Feb 08 10:58:38 EST 2025 Diastolic Blood Pressure 53.00 mm[Hg] Sat Feb 08 10:58:38 EST 5 Heart Rate 82.00 /min Sat Feb 08 10:58 :38 EST 5 Heart Rate 82.00 /min Sat Feb 08 10:58 :38 EST 5 Systolic Blood Pressure 99.00 mm[Hg] Fri Feb 07 20:34:26 EST 5 Diastolic Blood Pressure 61.00 mm[Hg] Fri Feb 07 20:34:26 EST 5 Heart Rate 80.00 /min Fri Feb 07 20:34 :26 EST 5 Systolic Blood Pressure 113.00 mm[Hg] Fri Feb 07 09:41:43 EST 5 Diastolic Blood Pressure 61.00 mm[Hg] Fri Feb 07 09:41:43 EST 5 Systolic Blood Pressure 113.00 mm[Hg] Fri Feb 07 09:41:43 EST 5 Diastolic Blood Pressure 61.00 mm[Hg] Fri Feb 07 09:41:43 EST 5 Heart Rate 84.00 /min Mon Feb 07 09:41 :43 EST 2025 Heart Rate 84.00 /min Fri Feb 07 09:41 :43 EST 2025 Systolic Blood Pressure 113.00 mm[Hg] Fri Feb 07 08:03:29 EST 5 Diastolic Blood Pressure 61.00 mm[Hg] Fri Feb 07 08:03:29 EST 5 Systolic Blood Pressure 113.00 mm[Hg] Fri Feb 07 08:03:29 EST 5 Diastolic Blood Pressure 61.00 mm[Hg] Fri Feb 07 08:03:29 EST 5 Pulse Oximetry 97.00 % Mon Feb 07 08:03 :29 EST 5 Heart Rate 84.00 /min Fri Feb 07 08:03 :29 EST 5 Pulse Oximetry 97.00 % Mon Feb 07 08:03 :29 EST 5 Heart Rate 84.00 /min Fri Feb 07 08:03 :29 EST 5 Systolic Blood Pressure 132.00 mm[Hg] [facility]els[facility] Feb 06 21:03:51 EST 5 Diastolic Blood Pressure 74.00 mm[Hg] Kelsy Feb 06 21:03:51 EST 5 Heart Rate 78.00 /min Kelsy Feb 06 21:03 :51 EST 5 Systolic Blood Pressure 110.00 mm[Hg] Kelsy Feb 06 10:05:29 EST 5 Diastolic Blood Pressure 80.00 mm[Hg] Kelsy Feb 06 10:05:29 EST 5 Systolic Blood Pressure 110.00 mm[Hg] Kelsy Feb 06 10:05:29 EST 5 Diastolic Blood Pressure 80.00 mm[Hg] Kelsy Feb 06 10:05:29 EST 5 Heart Rate 88.00 /min Kelsy Feb 06 10:05 :29 EST 5 Heart Rate 88.00 /min Kelsy Feb 06 10:05 :29 EST 5 Systolic Blood Pressure 110.00 mm[Hg] Kelsy Feb 06 07:27:31 EST 5 Diastolic Blood Pressure 80.00 mm[Hg] Kelsy Feb 06 07:27:31 EST 5 Systolic Blood Pressure 110.00 mm[Hg] Kelsy Feb 06 07:27:31 EST 5 Diastolic Blood Pressure 80.00 mm[Hg] Kelsy Feb 06 07:27:31 EST 5 Heart Rate 88.00 /min Kels[facility] Feb 06 07:27 :31 EST 5 Pulse Oximetry 91.00 % Kelsy Feb 06 07:27 :31 EST 5 Heart Rate 88.00 /min Kelsy Feb 06 07:27 :31 EST 5 Pulse Oximetry 91.00 % Kelsy Feb 06 07:27 :31 EST 5 Systolic Blood Pressure 108.00 mm[Hg] Kelsy Feb 06 04:43:26 EST 5 Diastolic Blood Pressure 66.00 mm[Hg] Kelsy Feb 06 04:43:26 EST 5 Pulse Oximetry 95.00 % Kelsy Feb 06 04:43 :26 EST 5 Heart Rate 84.00 /min Kelsy Feb 06 04:43 :26 EST 5 Respiratory rate 18.00 /min Kelsy Feb 06 04:4 3:26 EST 5 Body temperature 97.40 [degF] Kelsy Feb 06 04:4 3:26 EST 2024 Systolic Blood Pressure 108.00 mm[Hg] Mon Feb 05 21:11:37 EST 5 Diastolic Blood Pressure 66.00 mm[Hg] Wed Feb 05 21:11:37 EST 5 Heart Rate 84.00 /min Mon Feb 05 21:11 :37 EST 2025 Systolic Blood Pressure 94.00 mm[Hg] Wed Feb 05 09:26:11 EST 2025 Diastolic Blood Pressure 57.00 mm[Hg] Wed Feb 05 09:26:11 EST 2025 Systolic Blood Pressure 94.00 mm[Hg] Wed Feb 05 09:26:11 EST 2025 Diastolic Blood Pressure 57.00 mm[Hg] Wed Feb 05 09:26:11 EST 2024 Heart Rate 98.00 /min Mon Feb 09:26 :11 EST 5 Heart Rate 98.00 /min Mon Feb 09:26 :11 EST 2024 Systolic Blood Pressure 99.00 mm[Hg] Mon Feb 04 20:46:33 EST 2024 Diastolic Blood Pressure 62.00 mm[Hg] Mon Fe 04 20:46:33 EST 2024 Heart Rate 83.00 /min Mon Feb 04 20:46 :33 EST 5 Systolic Blood Pressure 104.00 mm[Hg] Mon Feb 04 09:57:53 EST 2024 Diastolic Blood Pressure 70.00 mm[Hg] Mon 04 09:57:53 EST 5 Systolic Blood Pressure 104.00 mm[Hg] Mon Feb 04 09:57:53 EST 2024 Diastolic Blood Pressure 70.00 mm[Hg] Mon 04 09:57:53 EST 2024 Heart Rate 98.00 /min Mon 04 09:57 :53 EST 5 Heart Rate 98.00 /min e Feb 04 09:57 :53 EST 2024 Body weight 201.80 [lb_av] MonMar 11 18:59 :00 EST 2024 Systolic Blood Pressure 110.00 mm[Hg] MonMar 11 11:22:17 EST 2024 Diastolic Blood Pressure 68.00 mm[Hg] Monb 11:22:17 EST 2024 Systolic Blood Pressure 110.00 mm[Hg] Monb 11:22:17 EST 2024 Diastolic Blood Pressure 68.00 mm[Hg] Monb 11:22:17 EST 2025 Heart Rate 82.00 /min Mon Feb 11:22 [...] :42 EST 2024 Heart Rate 97.00 /min [place] Feb 02 10:05 :42 EST 2024 Systolic Blood Pressure 106.00 mm[Hg] Sat Feb 23:02:09 EST 2024 Diastolic Blood Pressure 59.00 mm[Hg] Sat Feb 23:02:09 EST 2024 Heart Rate 88.00 /min Sat Feb 23:02 :09 EST 2024 Systolic Blood Pressure 110.00 mm[Hg] Sat Feb 09:34:12 EST 2024 Diastolic Blood Pressure 56.00 mm[Hg] Sat Feb 09:34:12 EST 2024 Systolic Blood Pressure 110.00 mm[Hg] Sat Feb 09:34:12 EST 2024 Diastolic Blood Pressure 56.00 mm[Hg] Sat Feb 09:34:12 EST 2024 Heart Rate 96.00 /min Sat Feb 09:34 :12 EST 2024 Heart Rate 96.00 /min Sat Feb 09:34 :12 EST 2024 Systolic Blood Pressure 94.00 mm[Hg] [...] /min MonMar 08 09:39 :40 EST 2024 Systolic Blood Pressure 108.00 mm[Hg] MonMar 08 00:33:10 EST 2024 Diastolic Blood Pressure 54.00 mm[Hg] MonMar 08 00:33:10 EST 2024 Pulse Oximetry 95.00 % MonMar 08 00:33 :10 EST 2024 Heart Rate 72.00 /min MonMar 08 00:33 :10 EST 2024 Respiratory rate 18.00 /min MonMar 08 00:3 3:10 EST 2024 Body temperature 98.30 [degF] MonMar 08 00:3 3:10 EST 2024 Systolic Blood Pressure 108.00 mm[Hg] MonMar 07 20:54:39 EST 2024 Diastolic Blood Pressure 54.00 mm[Hg] MonMar 07 20:54:39 EST 2024 Heart Rate 72.00 /min MonMar 07 20:54 :39 EST 2024 Body weight 205.20 [lb_av] MonMar 07 [...] 69.00 mm[Hg] MonMar 07 10:18:21 EST 2024 Pulse Oximetry 98.00 % MonMar 07 10:18 :21 EST 2024 Heart Rate 82.00 /min MonMar 07 10:18 :21 EST 2024 Respiratory rate 20.00 /min MonMar 07 10:1 8:21 EST 2024 Body temperature 98.20 [degF] MonMar 07 10:1 8:21 EST 2024 Heart Rate 82.00 /min MonMar 07 10:18 :21 EST 2024 Heart Rate 82.00 /min MonMar 07 10:18 :21 EST 2024 Systolic Blood Pressure 95.00 mm[Hg] MonMar 06 22:22:25 EST 2024 Diastolic Blood Pressure 56.00 mm[Hg] MonMar 06 22:22:25 EST 2024 Pulse Oximetry 96.00 % MonMar 06 22:22 :25 EST 2024 Heart Rate 88.00 /min MonMar 06 22:22 :25 EST 2024 Respiratory rate 18.00 /min MonMar 06 22:2 2:25 2024 Body temperature 98.20 [degF] MonMar 06 22:2 2:25 2024 Systolic Blood Pressure 95.00 mm[Hg] MonMar 06 20:26:45 EST 2024 Diastolic Blood Pressure 56.00 mm[Hg] MonMar 06 20:26:45 EST 2024 Heart Rate 88.00 /min MonMar 06 20:26 :45 EST 2024 Body weight 209.90 [lb_av] MonMar 06 [...] EST 2024 Systolic Blood Pressure 129.00 mm[Hg] MonMar 02 22:01:30 EST 2024 Diastolic Blood Pressure 62.00 mm[Hg] MonMar 02 22:01:30 EST 2024 Pulse Oximetry 98.00 [...] 09:55:17 EST 2024 Heart Rate 86.00 /min MonMar 02 09:55 :17 EST 2024 Heart Rate 85.00 /min Sat Mar 02 09:55 :17 EST 2024 Systolic Blood Pressure 108.00 mm[Hg] MonMar 02 08:52:26 EST 2024 Diastolic Blood Pressure 67.00 mm[Hg] MonMar 02 08:52:26 EST 2024 Pulse Oximetry 97.00 % MonMar 02 08:52 :26 EST 2024 Heart Rate 86.00 /min MonMar 02 08:52 :26 EST 2024 Respiratory rate 20.00 /min MonMar 02 08:5 2:26 EST 2024 Body temperature 98.50 [degF] MonMar 02 08:5 2:26 EST 2024 Systolic Blood [...] :43 EST 2024 Respiratory rate 18.00 /min [facility]els[facility] Feb 28 09:0 4:43 EST 2024 Body temperature 98.20 [degF] MonFeb 28 09:0 4:43 EST 2024 Heart Rate 84.00 /min MonFeb 28 09:04 :43 EST 2024 Heart Rate 84.00 /min Kelsy Feb 28 09:04 :43 EST 2024 Systolic Blood [...] EST 2024 Systolic Blood Pressure 99.00 mm[Hg] Sun Feb 24 23:52:03 EST 2024 Diastolic Blood Pressure 57.00 mm[Hg] MonFeb 24 23:52:03 EST 2024 Pulse Oximetry 98.00 % MonFeb 24 23:52 :03 EST 2024 Heart Rate 83.00 /min MonFeb 24 23:52 :03 EST 2024 Respiratory rate 18.00 /min MonFeb 24 23:5 2:03 EST 2024 Body temperature 98.20 [degF] MonFeb 24 23:5 2:03 EST 2024 Systolic Blood Pressure 99.00 mm[Hg] Sun Feb 24 22:07:29 EST 2024 Diastolic Blood Pressure 57.00 mm[Hg] MonFeb 24 22:07:29 EST 2024 Heart Rate 83.00 /min MonFeb 24 22:07 :29 EST 2024 Body weight 210.00 [lb_av] MonFeb 24 11:02 :24 EST 2024 Systolic Blood Pressure 122.00 mm[Hg] MonFeb 24 09:28:25 EST 2024 Diastolic Blood Pressure 64.00 mm[Hg] MonFeb 24 09:28:25 EST 2024 Systolic Blood Pressure 122.00 mm[Hg] Sun Feb 24 09:28:25 EST 2024 Diastolic Blood Pressure 64.00 mm[Hg] Sun Feb 24 09:28:25 EST 2024 Systolic Blood Pressure 122.00 mm[Hg] Sun Feb 24 09:28:25 EST 2024 Diastolic Blood Pressure 64.00 mm[Hg] Sun Feb 24 09:28:25 EST 2024 Pulse Oximetry 98.00 % MonFeb 24 09:28 :25 EST 2024 Heart Rate 66.00 /min Sun Feb 24 09:28 :25 EST 2024 Respiratory rate 18.00 /min [...] 23:14:23 EST 2024 Pulse Oximetry 94.00 % Sat Feb 23 23:14 :23 EST 2024 Heart Rate 79.00 /min Sat Feb 23 23:14 :23 EST 2024 Respiratory rate 18.00 /min Sat Feb 23 23:1 4:23 EST 2024 Body temperature 98.50 [degF] Sat Feb 23 23:1 4:23 EST 2024 Systolic [...] mm[Hg] Sat Feb 23 10:36:03 EST 2024 Heart Rate 86.00 /min Sat Feb 23 10:36 :03 EST 2024 Heart Rate 86.00 /min Sat Feb 23 10:36 :03 EST 2024 Systolic Blood Pressure 96.00 mm[Hg] Sat Feb 23 00:30:35 EST 2024 Diastolic Blood Pressure 49.00 mm[Hg] Sat Feb 23 00:30:35 EST 2024 Pulse Oximetry 95.00 % Sat Feb 23 00:30 :35 EST 2024 Heart Rate 90.00 /min Sat Feb 23 00:30 :35 EST 2025 Respiratory rate 20.00 /min MonFeb 23 00:3 0:35 2024 Body temperature 97.80 [degF] MonFeb 23 [...] Rate 99.00 /min MonFeb 22 11:01 :31 2024 Respiratory rate 18.00 /min MonFeb 22 11:0 1:31 2024 Body temperature 98.20 [degF] MonFeb 22 11:0 1:31 EST 2024 Systolic Blood Pressure 120.00 mm[Hg] MonFeb 22 10:02:19 2024 Diastolic Blood Pressure 70.00 mm[Hg] MonFeb 22 10:02:19 2024 Systolic Blood Pressure 120.00 mm[Hg] MonFeb 22 10:02:19 EST 2024 Diastolic Blood Pressure 70.00 mm[Hg] MonFeb 22 10:02:19 2024 Heart Rate 99.00 /min MonFeb 22 10:02 :19 2024 Heart Rate 99.00 /min MonFeb 22 10:02 :19 EST 2024 Systolic Blood Pressure 98.00 mm[Hg] MonFeb 21 23:05:42 EST 2024 Diastolic Blood Pressure 58.00 mm[Hg] MonFeb 21 23:05:42 EST 2024 Pulse Oximetry 95.00 % MonFeb 21 23:05 :42 EST 2024 Heart Rate 73.00 /min MonFeb 21 23:05 :42 EST 2024 Respiratory rate 18.00 /min MonFeb 21 23:0 5:42 EST 2024 Body temperature 98.30 [degF] MonFeb 21 23:0 5:42 EST 2024 Systolic Blood Pressure 98.00 mm[Hg] MonFeb 21 21:47:57 EST 2024 Diastolic Blood Pressure 58.00 mm[Hg] MonFeb 21 21:47:57 EST 2024 Heart Rate 73.00 /min MonFeb 21 21:47 :57 EST 2024 Body weight 207.60 [lb_av] MonFeb 21 16:38 :34 EST 2024 Systolic Blood Pressure 95.00 mm[Hg] MonFeb 21 09:53:30 EST 2024 Diastolic Blood Pressure 54.00 mm[Hg] MonFeb 21 09:53:30 EST 2024 Systolic Blood Pressure 95.00 mm[Hg] Kelsy Feb 21 09:53:30 EST 2024 Diastolic Blood Pressure 54.00 mm[Hg] [facility] Feb 21 09:53:30 EST 2024 Systolic Blood Pressure 95.00 mm[Hg] K[facility] Feb 21 09:53:30 2024 Diastolic Blood Pressure 54.00 mm[Hg] [facility] Feb 21 09:53:30 EST 2024 Pulse Oximetry 99.00 % [facility] Feb 21 09:53 :30 2024 Heart Rate 83.00 /min MonFeb 21 09:53 :30 EST 2024 Respiratory rate 20.00 /min [facility] Feb 21 09:5 3:30 EST 2024 Body temperature 98.60 [degF] MonFeb 21 09:5 3:30 2024 Heart Rate 83.00 /min MonFeb 21 09:53 :30 2024 Heart Rate 83.00 /min [facility] Feb 21 09:53 :30 2024 Systolic Blood Pressure 97.00 mm[Hg] MonFeb 21 01:27:56 EST 2024 Diastolic Blood Pressure 54.00 mm[Hg] MonFeb 21 01:27:56 EST 2024 Pulse Oximetry 97.00 % [facility] Feb 21 01:27 :56 EST 2024 Heart Rate 69.00 /min MonFeb 21 01:27 :56 EST 2024 Respiratory rate 20.00 /min [facility] Feb 21 01:2 7:56 EST 2024 Body temperature [...] Oximetry 97.00 % MonFeb 19 23:28 :37 2024 Heart Rate 87.00 /min MonFeb 19 [...] rate 18.00 /min MonFeb 19 10:2 0:31 EST 2024 Body temperature 98.10 [degF] MonFeb 19 10:2 0:31 EST 2024 Systolic Blood Pressure 102.00 mm[Hg] MonFeb 19 09:19:30 EST 2024 Diastolic Blood Pressure 66.00 mm[Hg] MonFeb 19 09:19:30 EST 2024 Systolic Blood Pressure 102.00 mm[Hg] MonFeb 19 09:19:30 EST 2024 Diastolic Blood Pressure 66.00 mm[Hg] MonFeb 19 09:19:30 EST 2024 Heart Rate 94.00 /min MonFeb 19 09:19 :30 EST 2024 Heart Rate 94.00 /min MonFeb [...] 2024 Diastolic Blood Pressure 70.00 mm[Hg] MonFeb 17 09:27:46 EST 2024 Systolic Blood Pressure 119.00 mm[Hg] MonFeb 17 09:27:46 EST 2024 Diastolic Blood Pressure 70.00 mm[Hg] MonFeb 17 09:27:46 EST 2024 Systolic Blood Pressure 119.00 mm[Hg] MonFeb 17 09:27:46 EST 2024 Diastolic Blood Pressure 70.00 mm[Hg] MonFeb 17 09:27:46 EST 2024 Pulse Oximetry 97.00 % MonFeb 17 09:27 :46 EST 2024 Heart Rate 86.00 /min MonFeb 17 09:27 :46 EST 2024 Respiratory rate 20.00 /min MonFeb 17 09:2 7:46 EST 2024 Body temperature 98.20 [degF] MonFeb 17 09:2 7:46 EST 2024 Heart Rate 86.00 /min MonFeb 17 09:27 :46 EST 2024 Heart Rate 86.00 /min MonFeb 17 09:27 :46 EST 2024 Systolic Blood Pressure 109.00 mm[Hg] MonFeb 17 00:12:13 EST 2024 Diastolic Blood Pressure 54.00 mm[Hg] MonFeb 17 00:12:13 EST 2024 Pulse Oximetry 96.00 % [place] Feb 17 00:12 :13 EST 2024 Heart Rate 80.00 /min [place] Feb 17 00:12 :13 EST 2024 Respiratory rate 18.00 /min [place] Feb 17 00:1 2:13 EST 2024 Body temperature 98.30 [degF] [place] Feb 17 00:1 2:13 EST 2024 Systolic Blood Pressure 109.00 mm[Hg] [facility] Feb 16 22:13:26 EST 2024 Diastolic Blood Pressure 54.00 mm[Hg] [facility] Feb 16 22:13:26 EST 2024 Heart Rate 80.00 /min [facility] Feb 16 22:13 :26 EST 2024 Systolic Blood Pressure 122.00 mm[Hg] [facility] Feb 16 16:00:23 EST 2024 Diastolic Blood Pressure 78.00 mm[Hg] [facility] Feb 16 16:00:23 EST 2024 Pulse Oximetry 98.00 % [facility] Feb 16 16:00 :23 EST 2024 Heart Rate 82.00 /min [facility] Feb 16 16:00 :23 EST 2024 Respiratory rate 18.00 /min [facility] Feb 16 16:0 0:23 EST 2024 Body temperature 98.00 [degF] [facility] Feb 16 16:0 0:23 EST 2024 Systolic Blood Pressure 122.00 mm[Hg] Sat Feb 16 09:14:21 EST 2024 Diastolic Blood Pressure 78.00 mm[Hg] Sat Feb 16 09:14:21 EST 2024 Systolic Blood Pressure 122.00 mm[Hg] Sat Feb 16 09:14:21 EST 2024 Diastolic Blood Pressure 78.00 mm[Hg] [facility] Feb 16 09:14:21 EST 2024 Heart Rate 82.00 /min Sat Feb 16 09:14 :21 EST 2024 Heart Rate 82.00 /min [facility] Feb 16 09:14 :21 EST 2024 Systolic Blood Pressure 88.00 mm[Hg] MonFeb 16 00:29:31 EST 2024 Diastolic Blood Pressure 51.00 mm[Hg] MonFeb 16 00:29:31 EST 2024 Pulse Oximetry 97.00 % MonFeb 16 00:29 :31 EST 2024 Heart Rate [...] 63.00 mm[Hg] MonFeb 15 11:32:15 EST 2024 Heart Rate 99.00 /min MonFeb 15 11:32 :15 2024 Heart Rate 99.00 /min MonFeb 15 11:32 :15 EST 2024 Systolic Blood Pressure 93.00 mm[Hg] MonFeb 14 23:23:13 EST 2024 Diastolic Blood Pressure 58.00 mm[Hg] MonFeb 14 23:23:13 EST 2024 Pulse Oximetry 95.00 % MonFeb 14 23:23 :13 EST 2024 Heart Rate 85.00 /min MonFeb 14 23:23 :13 EST 2024 Respiratory rate 18.00 /min MonFeb 14 23:2 3:13 EST 2024 Body temperature 98.30 [degF] MonFeb 14 23:2 3:13 EST 2024 Systolic Blood Pressure 93.00 mm[Hg] MonFeb 14 21:40:28 EST 2024 Diastolic Blood Pressure 58.00 mm[Hg] MonFeb 14 21:40:28 EST 2024 Heart Rate 89.00 /min MonFeb 14 21:40 :28 EST 2024 Systolic Blood [...] EST 2024 Systolic Blood Pressure 116.00 mm[Hg] [facility] Feb 14 09:23:37 EST 2024 Diastolic Blood Pressure 72.00 mm[Hg] [facility] Feb 14 09:23:37 EST 2024 Systolic Blood Pressure 116.00 mm[Hg] [facility] Feb 14 09:23:37 EST 2024 Diastolic Blood Pressure 72.00 mm[Hg] [facility] Feb 14 09:23:37 EST 2024 Heart Rate 111.00 /min MonFeb 14 09:23 :37 EST 2024 Heart Rate 111.00 /min [facility] Feb 14 09:23 :37 EST 2024 Systolic Blood Pressure 101.00 mm[Hg] MonFeb 14 01:01:57 EST 2024 Diastolic Blood Pressure 59.00 mm[Hg] MonFeb 14 01:01:57 EST 2024 Pulse Oximetry 96.00 % MonFeb 14 01:01 :57 EST 2024 Heart Rate 88.00 /min MonFeb 14 01:01 :57 EST 2024 Respiratory rate 18.00 /min MonFeb 14 01:0 1:57 EST 2024 Body temperature 98.20 [degF] MonFeb 14 01:0 1:57 EST 2024 Systolic Blood Pressure 101.00 mm[Hg] MonFeb 13 [...] 71.00 /min MonFeb 13 01:16 :05 EST 2024 Respiratory rate 18.00 /min MonFeb 13 01:1 [...] Pressure 59.00 mm[Hg] MonFeb 12 09:30:21 EST 2025 Systolic Blood Pressure 122.00 mm[Hg] MonFeb 12 09:30:21 EST 2024 Diastolic Blood Pressure 59.00 mm[Hg] MonFeb 12 09:30:21 EST 2024 Heart Rate 87.00 /min MonFeb 12 09:30 :21 EST 2024 Heart Rate 87.00 /min MonFeb 12 09:30 :21 EST 5 Systolic Blood Pressure 122.00 mm[Hg] MonFeb 12 [...] 94.00 /min MonFeb 11 09:03 :21 EST 5 Respiratory rate 18.00 /min MonFeb 11 09:0 3:21 EST 2024 Body temperature 97.50 [degF] MonFeb 11 09:0 3:21 EST 2024 Heart Rate 94.00 /min MonFeb 11 09:03 :21 EST 5 Heart Rate 94.00 /min MonFeb 11 09:03 [...] EST 2024 Systolic Blood Pressure 104.00 mm[Hg] Sun Feb 10 21:47:12 EST 2024 Diastolic Blood Pressure 57.00 mm[Hg] Sun Feb 10 21:47:12 EST 2024 Heart Rate 75.00 /min Sun Feb 10 21:47 :12 EST 2024 Systolic Blood Pressure 97.00 mm[Hg] Sun Feb 10 12:13:21 EST 2024 Diastolic Blood Pressure 62.00 mm[Hg] Sun Feb 10 12:13:21 EST 2024 Pulse Oximetry 95.00 % [place] Feb 10 12:13 :21 EST 2024 Heart Rate 86.00 /min Sun Feb 10 12:13 :21 EST 2024 Respiratory rate 16.00 /min Sun Feb 10 12:1 3:21 EST 2024 Body temperature 97.50 [degF] Sun Feb 10 12:1 3:21 EST 2024 Systolic Blood Pressure 97.00 mm[Hg] Sun Feb 10 09:04:09 EST 2024 Diastolic Blood Pressure 62.00 mm[Hg] Sun Feb 10 09:04:09 EST 2024 Systolic Blood Pressure 97.00 mm[Hg] Sun Feb 10 09:04:09 EST 2024 Diastolic Blood Pressure 62.00 mm[Hg] Sun Feb 10 09:04:09 EST 2024 Heart Rate 86.00 /min Sun Feb 10 09:04 :09 EST 2024 Heart Rate 86.00 /min Sun Feb 10 09:04 :09 EST 2024 Systolic Blood Pressure 106.00 mm[Hg] Sat Feb 09 23:00:01 EST 2024 Diastolic Blood Pressure 69.00 mm[Hg] Sat Feb 09 23:00:01 EST 2024 Pulse Oximetry 92.00 % Sat Feb 09 23:00 :01 EST 2024 Heart Rate 84.00 /min Sat Feb 09 23:00 :01 EST 2024 Respiratory rate 18.00 /min Sat Feb 09 23:0 0:01 EST 2024 Body temperature 97.30 [degF] Sat Feb 09 23:0 0:01 EST 2024 Systolic Blood Pressure 106.00 mm[Hg] Sat Feb 09 21:43:40 EST 2024 Diastolic Blood Pressure 69.00 mm[Hg] Sat Feb 09 21:43:40 EST 2024 Heart Rate 84.00 /min Sat Feb 09 21:43 :40 EST 2024 Body [...] EST 2024 Systolic Blood Pressure 104.00 mm[Hg] Sat Feb 09 00:37:18 EST 2024 Diastolic Blood Pressure 63.00 mm[Hg] Sat Feb 09 00:37:18 EST 2024 Pulse Oximetry 96.00 % Sat Feb 09 00:37 :18 EST 2024 Heart Rate 83.00 /min Sat Feb 09 00:37 :18 EST 2024 Respiratory rate 18.00 /min Sat Feb 09 00:3 7:18 EST 2024 Body temperature 98.20 [degF] Sat Feb 09 00:3 7:18 EST 2024 Systolic Blood [...] temperature 98.00 [degF] MonFeb 08 11:0 7:45 2024 Systolic Blood Pressure 127.00 mm[Hg] MonFeb 08 09:25:51 EST 2024 Diastolic Blood Pressure 69.00 mm[Hg] MonFeb 08 09:25:51 EST 2024 Systolic Blood Pressure 127.00 mm[Hg] MonFeb 08 09:25:51 EST 2024 Diastolic Blood Pressure 69.00 mm[Hg] MonFeb 08 09:25:51 EST 2024 Heart Rate 93.00 /min MonFeb 08 09:25 :51 EST 2024 Heart Rate 93.00 /min MonFeb 08 09:25 :51 2024 Systolic Blood Pressure 96.00 mm[Hg] MonFeb 07 20:50:20 2024 Diastolic Blood Pressure 52.00 mm[Hg] MonFeb 07 20:50:20 EST 2024 Systolic Blood Pressure 96.00 mm[Hg] MonFeb 07 20:50:20 2024 Diastolic Blood Pressure 52.00 mm[Hg] MonFeb 07 20:50:20 EST 2024 Pulse Oximetry 98.00 % MonFeb 07 20:50 :20 2024 Heart Rate 72.00 /min MonFeb 07 20:50 :20 2024 Respiratory rate 18.00 /min MonFeb 07 20:5 0:20 2024 Body temperature 98.30 [degF] MonFeb 07 20:5 0:20 2024 Heart Rate 72.00 /min MonFeb 07 20:50 :20 EST 2024 Body weight 212.40 [lb_av] MonFeb 07 17:38 :03 EST 2024 Systolic Blood Pressure 97.00 mm[Hg] MonFeb 07 10:39:25 2024 Diastolic Blood Pressure 57.00 mm[Hg] MonFeb 07 10:39:25 2024 Systolic Blood Pressure 97.00 mm[Hg] MonFeb 07 10:39:25 EST 2024 Diastolic Blood Pressure 57.00 mm[Hg] MonFeb 07 10:39:25 EST 2024 Systolic Blood Pressure 97.00 mm[Hg] MonFeb 07 10:39:25 2024 Diastolic Blood Pressure 57.00 mm[Hg] MonFeb 07 10:39:25 EST 2024 Pulse Oximetry 99.00 % MonFeb 07 10:39 :25 2024 Heart Rate 114.00 /min MonFeb 07 10:39 :25 2024 Respiratory rate 18.00 /min MonFeb 07 10:3 9:25 2024 Body temperature 98.20 [degF] MonFeb 07 10:3 9:25 EST 2024 Heart Rate 114.00 /min MonFeb 07 10:39 :25 2024 Heart Rate 114.00 /min MonFeb 07 10:39 :25 EST 2024 Systolic Blood Pressure 105.00 mm[Hg] MonFeb 06 23:12:18 EST 2024 Diastolic Blood Pressure 61.00 mm[Hg] MonFeb 06 23:12:18 2024 Pulse Oximetry 98.00 % MonFeb 06 23:12 :18 2024 Heart Rate 93.00 /min MonFeb 06 23:12 :18 EST 2024 Respiratory rate 18.00 /min [...] 82.00 /min MonFeb 05 10:58 :14 EST 2023 Respiratory rate 20.00 /min MonFeb 05 10:5 [...] 217.40 [lb_av] MonFeb 04 15:36 :13 EST 2023 Body weight 217.40 [lb_av] MonFeb 04 09:22 [...] :38 EST 2023 Heart Rate 70.00 /min Mon Dec 30 09:17 :38 EST 2023 Systolic Blood Pressure 122.00 mm[Hg] MonFeb 04 08:42:29 EST 2023 Diastolic Blood Pressure 72.00 mm[Hg] MonFeb 04 08:42:29 EST 2023 Pulse Oximetry 94.00 % MonFeb 04 08:42 :29 EST 2023 Heart Rate 70.00 /min MonFeb 04 08:42 :29 EST 4 Respiratory rate 18.00 /min MonFeb 04 08:4 [...] 59.00 mm[Hg] MonFeb 02 08:41:26 EST 2023 Systolic Blood Pressure 106.00 mm[Hg] [...] Oximetry 95.00 % MonFeb 01 11:29 :37 2023 Heart Rate 81.00 /min MonFeb 01 11:29 :37 2023 Respiratory rate 18.00 /min MonFeb 01 [...] EST 2023 Systolic Blood Pressure 112.00 mm[Hg] MonJan 30 23:28:29 EST 2023 Diastolic Blood Pressure 55.00 mm[Hg] MonJan 30 23:28:29 EST 2023 Pulse Oximetry 98.00 % MonJan 30:28 :29 EST 2023 Heart Rate 84.00 /min MonJan 30 23:28 :29 EST 2023 Respiratory rate 18.00 /min MonJan 30 23:2 8:29 EST 2023 Body temperature 98.30 [degF] MonJan 30 23:2 8:29 EST 2023 Systolic Blood Pressure 112.00 mm[Hg] MonJan 30 21:55:04 EST 2023 Diastolic Blood Pressure 55.00 mm[Hg] MonJan 30 21:55:04 EST 2023 Heart Rate 84.00 /min MonJan 30 21:55 :04 EST 2023 Systolic Blood Pressure 92.00 mm[Hg] MonJan 30 10:00:56 EST 2023 Diastolic Blood Pressure 55.00 mm[Hg] MonJan 30 10:00:56 EST 2023 Systolic Blood Pressure 92.00 mm[Hg] MonJan 30 10:00:56 EST 2023 Diastolic Blood Pressure 55.00 mm[Hg] MonJan 30 10:00:56 EST 2023 Systolic Blood Pressure 92.00 mm[Hg] MonJan 30 10:00:56 EST 2023 Diastolic Blood Pressure 55.00 mm[Hg] MonJan 30 10:00:56 EST 2023 Pulse Oximetry 97.00 % MonJan 30 10:00 :56 EST 2023 Heart Rate 78.00 /min MonJan 30 10:00 :56 EST 2023 Respiratory rate 18.00 /min MonJan 30 10:0 0:56 EST 2023 Body temperature 98.00 [degF] MonJan 30 10:0 0:56 EST 2023 Heart Rate 78.00 /min MonJan 30 10:00 :56 EST 2023 Heart Rate 78.00 /min MonJan 30 10:00 :56 EST 2023 Systolic Blood Pressure 110.00 mm[Hg] MonJan 29 21:59:53 EST 2023 Diastolic Blood Pressure 44.00 mm[Hg] MonJan 29 21:59:53 EST 2023 Pulse Oximetry 96.00 % MonJan 29 21:59 :53 EST 2023 Heart Rate 85.00 /min MonJan 29 21:59 :53 EST 2023 Respiratory rate 18.00 /min MonJan 29 21:5 9:53 EST 2023 Body temperature 98.30 [degF] MonJan 29 21:5 [...] 09:40:04 EST 2023 Pulse Oximetry 94.00 % MonJan 26 09:40 :04 EST 2023 Heart Rate 63.00 /min MonJan 26 09:40 :04 EST 2023 Respiratory rate 18.00 /min MonJan 26 09:4 0:04 EST 4 Body temperature 97.80 [degF] Mon Dec 09:4 0:04 EST 2023 Heart Rate 63.00 /min Mon Dec 09:40 :04 EST 2023 Heart Rate 63.00 /min MonJan 26 09:40 :04 EST 4 Systolic Blood Pressure 110.00 mm[Hg] MonJan 25 20:10:46 EST 2023 Diastolic Blood Pressure 48.00 mm[Hg] MonJan 25 20:10:46 EST 2023 Systolic Blood Pressure 110.00 mm[Hg] MonJan 25 20:10:46 EST 4 Diastolic Blood Pressure 48.00 mm[Hg] MonJan 25 [...] Systolic Blood Pressure 150.00 mm[Hg] MonJan 25 09:21:24 EST 2023 Diastolic Blood Pressure 77.00 mm[Hg] MonJan 25 09:21:24 EST 2023 Systolic Blood Pressure 150.00 mm[Hg] MonJan 25 09:21:24 EST 2023 Diastolic Blood Pressure 77.00 mm[Hg] MonJan 25 09:21:24 EST 2023 Heart Rate 62.00 /min MonJan 25 09:21 :24 EST 2023 Heart Rate 62.00 /min MonJan 25 09:21 :24 EST 2023 Systolic Blood Pressure 113.00 mm[Hg] [place] Dec 23:30:36 EST 2023 Diastolic Blood Pressure 51.00 mm[Hg] MonJan 24 23:30:36 EST 2023 Pulse Oximetry 96.00 % MonJan 24 23:30 :36 EST 2023 Heart Rate 82.00 /min MonJan 24 23:30 :36 EST 2023 Respiratory rate 16.00 /min MonJan 24 23:3 0:36 EST 2023 Body temperature 98.00 [degF] MonJan 24 23:3 0:36 EST 2023 Systolic Blood Pressure 113.00 mm[Hg] MonJan 24 20:51:39 EST 2023 Diastolic Blood Pressure 51.00 mm[Hg] MonJan 24 20:51:39 EST 2023 Heart Rate 82.00 /min MonJan 24 20:51 :39 EST 2023 Body weight 222.80 [lb_av] MonJan 24 15:06 :26 EST 2023 Systolic Blood Pressure 160.00 mm[Hg] MonJan 24 10:08:48 EST 2023 Diastolic Blood Pressure 76.00 mm[Hg] MonJan 24 10:08:48 EST 2023 Systolic Blood Pressure 160.00 mm[Hg] MonJan 24 10:08:48 EST 2023 Diastolic Blood Pressure 76.00 mm[Hg] MonJan 24 10:08:48 EST 2023 Systolic Blood Pressure 160.00 mm[Hg] MonJan 24 10:08:48 EST 2023 Diastolic Blood Pressure 76.00 mm[Hg] MonJan 24 10:08:48 EST 2023 Pulse Oximetry 98.00 % MonJan 24 10:08 :48 EST 2023 Heart Rate 93.00 /min MonJan 24 10:08 :48 EST 2023 Respiratory rate 18.00 /min MonJan 24 10:0 8:48 EST 2023 Body temperature 98.30 [degF] MonJan 24 10:0 8:48 EST 2023 Heart Rate 93.00 /min MonJan 24 10:08 :48 EST 2023 Heart Rate 93.00 /min MonJan 24 10:08 :48 EST 2023 Systolic Blood Pressure 109.00 mm[Hg] MonJan 24 [...] 98.30 [degF] MonJan 22 22:4 5:52 EST 2023 Systolic Blood Pressure 100.00 mm[Hg] MonJan 22 21:26:45 EST 2023 Diastolic Blood Pressure 41.00 mm[Hg] MonJan 22 21:26:45 EST 2023 Heart Rate 84.00 /min MonJan 22 21:26 :45 EST 4 Systolic Blood Pressure 102.00 mm[Hg] MonJan 22 11:07:20 EST 2023 Diastolic Blood Pressure 64.00 mm[Hg] MonJan 22 11:07:20 EST 2023 Pulse Oximetry 97.00 % MonJan 22 11:07 :20 EST 4 Heart Rate 86.00 /min MonJan 22 11:07 :20 EST 4 Respiratory rate 20.00 /min MonJan 22 11:0 7:20 EST 4 Body temperature 98.30 [degF] MonJan 22 11:0 7:20 EST 4 Systolic Blood Pressure 102.00 mm[Hg] MonJan 22 09:20:46 EST 2023 Diastolic Blood Pressure 64.00 mm[Hg] MonJan 22 09:20:46 EST 2023 Systolic Blood Pressure 102.00 mm[Hg] MonJan 22 09:20:46 EST 2023 Diastolic Blood Pressure 64.00 mm[Hg] MonJan 22 09:20:46 EST 2023 Heart Rate 86.00 /min MonJan 22 09:20 :46 EST 4 Heart Rate 86.00 /min MonJan 22 09:20 :46 EST 4 Systolic Blood Pressure 96.00 mm[Hg] MonJan 21 22:39:17 EST 2023 Diastolic Blood Pressure 66.00 mm[Hg] MonJan 21 22:39:17 EST 2023 Pulse Oximetry 98.00 % MonJan 21 22:39 :17 EST 2023 Heart Rate 77.00 /min MonJan 21 22:39 :17 EST 2023 Respiratory rate 20.00 /min MonJan 21 22:3 9:17 EST 2023 Body temperature 97.30 [degF] MonJan 21 22:3 9:17 EST 4 Systolic Blood Pressure 96.00 mm[Hg] [...] /min MonJan 21 09:08 :32 EST 2023 Systolic Blood Pressure 143.00 mm[Hg] [...] EST 2023 Diastolic Blood Pressure 53.00 mm[Hg] Mon 15 09:18:34 EST 2023 Systolic Blood Pressure 102.00 mm[Hg] [place] Jan 20 09:18:34 EST 2023 Diastolic Blood Pressure 53.00 mm[Hg] [place] Jan 20 09:18:34 EST 2023 Heart Rate 68.00 /min [place] Jan 20 09:18 :34 EST 2023 Systolic Blood Pressure 96.00 mm[Hg] [facility] Jan 19 21:35:04 EST 2023 Diastolic Blood Pressure 46.00 mm[Hg] [facility] Jan 19 21:35:04 EST 2023 Systolic Blood Pressure 96.00 mm[Hg] [facility] Jan 19 21:35:04 EST 2023 Diastolic Blood Pressure 46.00 mm[Hg] [facility] Jan 19 21:35:04 EST 2023 Pulse Oximetry 97.00 % [facility] Jan 19 21:35 :04 EST 2023 Heart Rate 79.00 /min [facility] Jan 19 21:35 :04 EST 2023 Respiratory rate 24.00 /min [facility] Jan 19 21:3 5:04 EST 2023 Body temperature 98.30 [degF] [facility] Jan 19 21:3 5:04 EST 2023 Systolic Blood Pressure 96.00 mm[Hg] [facility] Jan 19 18:29:00 EST 2023 Diastolic Blood Pressure 46.00 mm[Hg] [facility] Jan 19 18:29:00 EST 2023 Heart Rate 79.00 /min MonJan 19 18:29 :00 EST 2023 Respiratory rate 20.00 /min [facility] Jan 19 18:2 9:00 EST 2023 Pulse Oximetry 97.00 % [facility] Jan 19 18:29 :00 EST 2023 Body weight 231.00 [lb_av] [facility] Jan 19 18:29 :00 EST 2023 Body temperature 98.30 [degF] [facility] Jan 19 18:2 9:00 EST 2023 Body Height 71.00 [in_i] [facility] Jan 19 18:29 :00 EST 2023 Reason for Referral Past Medical History Resolved Concerns * Problem Muscle weakness (generalized)* Code: * Start Date: MonSep 30 00:00:00 EDT 2021 * End Date: MonJune 26 00:00:00 EDT 2024
--- OUTSIDE RECORDS SUMMARY | 2024-07-08 10:25 | XMS_ITS | Data Portability ---
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 More than 50% of that time was spent in discussing the expected course of the disease, discussing prognosis, coordinating care and counseling of the patient/family. [email or web address] Not available 04/24/2024 14:58:43 05/21/2024 [id number] I spent 36 minutes providing care to the patient today. More than 50% of that time was spent in discussing the expected course of the disease, discussing prognosis, coordinating care and counseling of the patient/family. Not available 05/22/2024 08:42:12 06/18/2024 [id number] I spent 37 minutes providing care to the patient today. More than 50% of that time was spent in discussing the expected course of the disease, discussing prognosis, coordinating care and counseling of the patient/family. [email or web address] Not available 06/18/2024 16:17:25 06/25/2024 [id number] I spent 50 minutes providing care to the patient today. More than 50% of that time was spent in discussing the expected course of the disease, discussing prognosis, coordinating care and counseling of the patient/family. I spent 16 minutes counseling and discussing advance directives and/or end of life care planning and decisions with the patient today. I reviewed the current relevant diagnoses, treatment options, natural history, and prognosis and clarified the patient's goals of care. code status is DNR [email or web address] Not available 06/26/2024 04:33:30 06/27/2024 [id number] I spent 36 minutes providing care to the patient today. [...] for retinal [place] [address] [facility], [place], [address], [facility] 01/23/2024 07:20:45 Imaging Results None [...] 1 drop every day by ophthalmi c route. active Not Available Not Available No t Available acetaminop hen 325 mg tablet Take 2 tablets twice a day by oral route as needed. active SPEC INS: 1-2 TAB Not Available Not Available Not Available atorvastat in 20 mg tablet Take 1 tablet every day by oral route. active Not Available Not Available No t Available polyethyle ne glycol 3350 17 gram oral powder packet Take 1 packet every day by oral route. 07/08 completed Not Available Not Available Not Available isosorbide mononitrat e ER 30 mg tablet,ext ended release 24 hr Take 1 tablet every day by oral route. 01/22 completed Not Available Not Available Not Available metronidaz ole 500 mg tablet Take 1 tablet every 8 hours by oral route for 3 days. active Not Available Not Available No t Available clopidogre l 75 mg tablet Take 1 tablet every day by oral route. active Not Available Not Available No t Available tramadol 50 mg tablet Take 1 tablet every 6 hours by oral route as needed. active Not Available Not Available No t Available acetaminop hen 500 mg tablet Take 2 tablets every day by oral route. active Not Available Not Available No t Available triamcinol one acetonide 0.1 % topical cream Apply 1 applicati on twice a day by topical route as needed. active Not Available Not Available No t Available spironolac tone 25 mg tablet Take 12.5 mg every day by oral route. active Not Available Not Available No t Available levothyrox ine 25 mcg tablet Take 1 tablet every day by oral route. active Not Available Not Available No t Available alprazolam 0.25 mg tablet Take 1 tablet every day by oral route as needed. 03/10 completed Not Available Not Available Not Available potassium chloride ER 20 mEq tablet,ext ended release(pa rt/cryst) Take 1 tablet every day by oral route. active Not Available Not Available No t Available pantoprazo le 40 mg tablet,del ayed [...] mg tablet,ext ended release 24 hr Take 12.5 mg every day by oral route. active Not Available Not Available No t Available ergocalcif marion (vitamin D2) 1,250 mcg (50,000 unit) capsule Take 1 capsule every week by oral route. active Not Available Not Available No t Available polyethyle ne glycol 3350 17 gram/dose oral powder Take 17 g every day by oral route. active Not Available Not Available No t Available levofloxac in 750 mg tablet Take 1 tablet by oral route for 3 days. active Not Available Not Available No t Available ondansetro n 4 mg disintegra ting tablet Place 1 tablet every 6 hours by transling ual route as needed. active Not Available Not Available No t Available fluticason e propionate 50 mcg/actuat ion nasal spray,susp ension [place] 1 spray every day by intranasa l route. active Not Available Not Available No t Available sertraline 50 mg tablet Take 1 tablet every day by oral route. 01/31 completed Not Available Not Available Not Available Guaifenesi n-DM 10 mg-100 mg/5 mL oral liquid Take 10 mL every 4 hours by oral route as needed. active Not Available Not Available No t Available Saline Nasal 0.65 % spray aerosol Take 1 spray every 4 hours by nasal route as [...] completed Not Available Not Available Not Available cholecalci ferol (vitamin D3) 1,250 mcg [...] day by oral route for 3 days. 07/08 completed then [06/29] 20 meq daily. Not Available Not Available Not Available Entresto 24 mg-26 mg tablet Take [...] Updated DateTime 5 180.34 cm 27.4 kg/m2 32069.9 8 g 96 % 96 % 18 /min 97.5 [degF] 62 /min 128 mm[Hg] 64 mm[Hg] [place] [address] [place], [address], [place] [facility] 5 14:37:01 Date Recorded Body height Heart rate Body temperature Respiratory rate Oxygen saturation Oxygen saturation in Arterial blood by Pulse oximetry Body mass index (BMI) Body weight Systolic blood pressure Diastolic blood pressure Provider Name and Address Organization Details Last Updated DateTime 5 180.34 cm 80 /min 97 [degF] 18 /min 97 % 97 % 27 kg/m2 79687.4 8 g 133 mm[Hg] 73 mm[Hg] [place] [address] [place], [address], [place] [facility] 5 08:29:58 Date Recorded Body height Heart rate Body temperature Respiratory rate Oxygen saturation Oxygen saturation in Arterial blood by Pulse oximetry Body mass index (BMI) Body weight Systolic blood pressure Diastolic blood pressure Provider Name and Address Organization Details Last Updated DateTime 180.34 cm 76 /min 98 [degF] 20 /min 95 % 95 % 28 kg/m2 04877.0 7 g 129 mm[Hg] 69 mm[Hg] [place] [address] [place], [address], [place] [facility] 5 10:52:25 Date Recorded Body height Oxygen saturation Oxygen saturation in Arterial blood by Pulse oximetry Respiratory rate Body temperature Heart rate Systolic blood pressure Diastolic blood pressure Provider Name and Address Organization Details Last Updated DateTime 180.34 cm 97 % 97 % 20 /min 98.2 [degF] 75 /min 124 mm[Hg] 73 mm[Hg] [place] [address] [place], [address], [place] [facility] 5 03:35:43 Date Recorded Body height Heart rate Body temperature Respiratory rate Oxygen saturation Oxygen saturation in Arterial blood by Pulse oximetry Systolic blood pressure Diastolic blood pressure Provider Name and Address Organization Details Last Updated DateTime 5 180.34 cm 96 /min 97.7 [degF] 18 /min 96 % 96 % 130 mm[Hg] 80 mm[Hg] [place] [address] [place], [address], [place] [facility] 5 16:16:28 Social History Question Answer Notes LastModified by Organizat ion Details LastModified Time Tobacco Smoking Status [place] [address] [place], [address], [place] [facility] 01/23/2024 07:21:27 What Is Your Code Status? DNR Information not available 01/21/2024 What Is Your Relationship Status? Information not available 01/21/2024 Sex: Unknown Functional Status Question Answer Note LastModified by Organizat ion Details LastModified Time Do you use any [...] -- Anxiety Disorder Y Atrial Fibrillation Y Congestive Heart Failure (CHF) Y Hyperlipidemia Y Psychiatric -- Depression Y Ulcer -- Venous Stasis Y Hypothyroidism Y Fall Y Anemia Y Constipation Y GERD / Reflux Y Hypertension Y Past Encounters Encounter ID Performer Location Encounter Start Date Encounter Closed Date Diagnosis/Indication Diagnosis SNOMED-CT Code Diagnosis ICD10 Code Diagnosis Note [id number] Corazon Mckinney DO [address] [address] 01/22/2024 00:10:17 01/24/2024 16:58:22 Hyponatremia 83712719 E87.1 patient is newly diagnosed with hypothyroi dism - levothyrox ine has been startedcon tinue diureticst rend serum sodium levelscons ider fluid restrictio n if worseninga void additional aggravatin g meds - patient does continue on SSRI Gastrointe stinal hemorrhage 31633297 K92.2 due to severe gastritis and esophagiti scontinue high dose PPI therapypla n is for GI f/u 3 months for repeat EGDGI has documented that anticoagul ation is OK to continue as long as the patient has not evidence of active bleeding with melena or hematochez ia Anemia 479816041 D64.9 related to aboveconti nue folate replacemen ttrend CBC Gastritis 8867956 K29.70 see above Congestive heart failure 99336006 I50.9 TTE 01/14 EF 55-70%, mild atrial [...] in early February Major depr essive disorder 011553342 F32.9 continue sertraline - monitor clinically for need to dose adjust Constipation 74993491 K5 9.00 continue daily miralaxadd itional meds available per standing orders Allergic rhinitis 368968 04 J30.9 continue daily flonase Hypothyroidism 68126422 E03.9 newly diagnosed while hospitaliz ed at [facility] ntinue low dose synthroidf /u thyroid studies 6-8 weeks Atrial fibrillation 4943 6004 I48.91 rate is controlled with metoprolol continue eliquis for VTE prophylaxi s - may need to readdress continuati on of this with fall risk and recent GI bleeding (risks may outweight benefits going forward) Multiple o pen wounds of lower leg 110421299 S81.809D continue current wound careSWM to consultno evidence of secondary cellulitis at this time Laceration of left forearm [id number] 9693708 S51.812D repaired at [facility] 12/4suture s remain in placewound with large amount of exudate/sl ough which may need some debridingw ill request ER records to confirm # of sutures - appears there are at least [address] at this time - continue daily wound care/SWM consult and close observatio n for secondary infection Hyperlipidemia 93670936 E78.5 presumed stable - continue statin therapy 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 Consider transition to alternate therapy during his stay or as an outpatient . Trazodone might be a good option. Glaucoma 74628053 H40.9 continue latanopros toutpatien t f/u with ophtho Physical deconditioning 8201681300 9102 R68.89 related to advanced age, recent [...] placement upon discharge from SNF. Recurrent falls 92990563 2 R29.6 likely multifacto rial in naturecons ider checking vitamin D levelrecen t Vitamin B12 level normalcont inue therapies [id number] Corazon Mckinney, DO [facility] [address] [facility] [place] [address] 01/24/2024 09:25:15 01/25/2024 16:00:19 Hyponatremia 36137739 E87.1 Newly diagnosed with hypothyroi dism. Levothyrox ine has been started.Co ntinue Furosemide & Spironolac tone.Trend serum sodium levels.Con theater projectionist fluid restrictio n if worsening. Stable thus far.Avoid additional aggravatin g meds. Patient does continue on SSRI. Gastrointe stinal hemorrhage 29797527 K92.2 due to severe gastritis and esophagiti s. GI has documented that anticoagul ation is OK to continue as long as the patient has not evidence of active bleeding with melena or hematochez ia.Continu e high dose PPI therapy.Pl an is for GI f/u 3 months for repeat EGD. Anemia 885512491 D64.9 Related to above.Cont inue folate replacemen t.Pt did not tolerate oral iron tablets (nausea) so discontinu ed while inpatient. Trend CBC. Gastritis 5330620 K29.70 SEE ABOVE... Congestive heart failure 19356883 I50.9 TTE on 01/14 EF 55-70%, mild [...] in early February. Major depr essive disorder 624898914 F32.9 Stable. Continue Sertraline - monitor clinically for need to dose adjust. Constipation 53200108 K5 9.00 Stable. Continue daily Miralax.Ad ditional meds available per standing orders. Allergic rhinitis 794050 04 J30.9 Stable. Continue daily flonase. Hypothyroidism 97893418 E03.9 Newly diagnosed while hospitaliz ed at [facility].C ontinue newly-adde d low dose Synthroid. f/u thyroid studies 6-8 weeks (Mar 2024). Atrial fibrillation 4943 6004 I48.91 Rate is controlled with Metoprolol .Continue Eliquis for VTE prophylaxi s. May need to readdress continuati on of this with fall risk and recent GI bleeding (risks may outweigh benefit going forward). Multiple o pen wounds of lower leg 882409673 S81.809D Continue current wound care.SWM to consult.No evidence of secondary cellulitis at this time. Laceration of left forearm 9928088221 6720496 S51.812D Repaired at [facility] on 01/09.Sutur es removed on 01/21.Cont inue daily wound care/SWM consult and close observatio n for secondary infection. Hyperlipidemia 95459471 E78.5 Presumed stable. Continue statin. Hypertensi ve heart disease with congestive heart failure 5201224 I11.0 Stable. Continue Metoprolol , Entresto, Lasix, & Spironolac tone.Stopp ed Imdur in response to hypotensio n, BPs have since stabilized . Hold parameters in place with Entresto and Metoprolol .Continue to trend blood pressures, monitor lytes and renal function, and adjust meds as clinically indicated. Generalize d anxiety disorder 34850780 F41.1 Patient takes routine Alprazolam as an [...] Trazodone might be a good option. Glaucoma 29094685 H40.9 Presumed stable. Continue Latanopros t.Outpatie nt f/u with ophtho. Recurrent falls 24013780 2 R29.6 Likely multifacto rial in nature.Con theater projectionist checking vitamin D level.Rece nt Vitamin B12 level normal.Con tinue therapies. Physical deconditioning 6071215630 9102 R68.89 Related to advanced age, recent [...] requires alternate placement upon discharge from SNF. [id number] Corazon Mckinney, DO [facility] [address] [address] 01/29/2024 10:25:42 01/30/2024 12:25:05 Hyponatremia 12693030 E87.1 Newly diagnosed with hypothyroi dism. Levothyrox ine has been started.Co ntinue Furosemide & Spironolac tone.Trend serum sodium levels.Con theater projectionist fluid restrictio n if worsening. Stable thus far.Avoid additional aggravatin g meds. Patient does continue on SSRI. Hypothyroidism 32349786 E03.9 Newly diagnosed while hospitaliz ed at [facility].C ontinue newly-adde d low dose Synthroid. f/u thyroid studies 6-8 weeks (Mar 2024). Gastrointe stinal hemorrhage 03015399 K92.2 due to severe gastritis and esophagiti s. GI has documented that anticoagul ation is OK to continue as long as the patient has not evidence of active bleeding with melena or hematochez ia.Continu e high dose PPI therapy.Pl an is for GI f/u 3 months for repeat EGD. Anemia 775140163 D64.9 Related to above.Cont inue folate replacemen t.Pt did not tolerate oral iron tablets (nausea) so discontinu ed while inpatient. Trend CBC. Gastritis 4878644 K29.70 SEE ABOVE... Hypertensi ve heart disease with congestive heart failure 7814399 I11.0 Stable. Continue Metoprolol , Entresto, Lasix, & Spironolac tone.Stopp ed Imdur in response to hypotensio n, BPs have since stabilized . Hold parameters in place with Entresto and Metoprolol .Continue to trend blood pressures, monitor lytes and renal function, and adjust meds as clinically indicated. 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 Laceration of left forearm 1731712448 6485855 S51.812D Repaired at [facility] on 01/09.Sutur es removed on 01/21.Cont inue daily wound care/SWM consult and close observatio n for secondary infection. Hyperlipidemia 61816096 E78.5 Presumed stable. Continue statin. Major depr essive disorder 518210293 F32.[address] Duque transition ing Sertraline to Mirtazapin e in hopes it will help his appetite. Generalize d anxiety disorder 04046170 F41.1 Patient takes routine Alprazolam as an [...] Trazodone might be a good option. Constipation 90324925 K5 9.00 Stable. Continue daily Miralax.Ad ditional meds available per standing orders. Allergic rhinitis 699627 04 J30.9 Stable. Continue daily flonase. Glaucoma 80985695 H40.9 Presumed stable. Continue Latanopros t.Outpatie nt f/u with ophtho. Recurrent falls 90442448 2 R29.6 Likely multifacto rial in nature.Con theater projectionist checking vitamin D level.Rece nt Vitamin B12 level normal.Con tinue therapies. Physical deconditioning 9373473607 9102 R68.89 Related to advanced age, recent [...] requires alternate placement upon discharge from SNF. [id number] Corazon Mckinney, [facility] [address] [place] [address] 02/01/2024 09:08:50 02/05/2024 15:14:45 Hyponatremia 26089892 E87.1 Newly diagnosed with hypothyroi dism. Levothyrox ine has been started.Co ntinue Furosemide & Spironolac tone.Trend serum sodium levels. Have trended 130-131 here.Consi keon fluid restrictio n if worsening. Avoid additional aggravatin g meds. Hypothyroidism 72026881 E03.9 Newly diagnosed while hospitaliz ed at [facility].C ontinue newly-adde d low dose Synthroid. f/u thyroid studies 6-8 weeks (Mar 2024). Gastrointe stinal hemorrhage 11214860 K92.2 due to severe gastritis and esophagiti s. GI has documented that anticoagul ation is OK to continue as long as the patient has not evidence of active bleeding with melena or hematochez ia.Continu e high dose PPI therapy.Hg b has been very slowly improving. Plan is for GI f/u 3 months for repeat EGD. Anemia 447186647 D64.9 Related to above.Cont inue folate replacemen t.Pt did not tolerate oral iron tablets (nausea) so discontinu ed while inpatient. Hgb has been very slowly improving. Trend CBC. Gastritis 9254228 K29.70 SEE ABOVE... Hypertensi ve heart disease with congestive heart failure 9851580 I11.0 Stable. Continue Metoprolol , Entresto, Lasix, & Spironolac tone.Stopp ed Imdur in response to hypotensio n, BPs have since stabilized . Hold parameters in place with Entresto and Metoprolol .Continue to trend blood pressures, monitor lytes and renal function, and adjust meds as clinically indicated. 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 Laceration of left forearm 7352112839 6711111 S51.812D Repaired at [facility] on 01/09.Sutur es removed on 01/21.Cont inue daily wound care/SWM consult and close observatio n for secondary infection. Hyperlipidemia 93209897 E78.5 Presumed stable. Continue statin. Major depr essive disorder 397112021 F32.[address] Duque transition ing Sertraline to Mirtazapin e in hopes it will help his appetite. Generalize d anxiety disorder 81653175 F41.1 Patient takes routine Alprazolam as an [...] Trazodone might be a good option. Constipation 23701150 K5 9.00 Stable. Continue daily Miralax.Ad ditional meds available per standing orders. Allergic rhinitis 710959 04 J30.9 Stable. Continue daily flonase. Glaucoma 74199363 H40.9 Presumed stable. Continue Latanopros t.Outpatie nt f/u with ophtho. Recurrent falls 54690093 2 R29.6 Likely multifacto rial in nature.Con theater projectionist checking vitamin D level.Rece nt Vitamin B12 level normal.Con tinue therapies. Physical deconditioning 3799543186 9102 R68.89 Related to advanced age, recent [...] requires alternate placement upon discharge from SNF. [id number] Corazon Mckinney, DO [facility] [address] [place] [address] 02/05/2024 09:55:28 02/12/2024 16:30:40 Vitamin D deficiency 15940426 E55.9 Level 15. Start on weekly supplement and trend level as OP. Hypothyroidism 05901712 E03.9 Newly diagnosed while hospitaliz ed at [facility].C ontinue newly-adde d low-dose Synthroid. f/u thyroid studies 6-8 weeks (Mar 2024). Hyponatremia 19048003 E8 7.1 Newly diagnosed with hypothyroi dism. Levothyrox ine has been started.Co ntinue Furosemide & Spironolac tone.Trend serum sodium levels. Have trended 130-131 here.Consi keon fluid restrictio n if worsening. Avoid additional aggravatin g meds. Gastrointe stinal hemorrhage 28582174 K92.2 due to severe gastritis and esophagiti [...] f/u 3 months for repeat EGD. Anemia 486407608 D64.9 Related to above.Cont inue folate replacemen t.Pt did not tolerate oral iron tablets (nausea) so discontinu ed while inpatient. Hgb has been very slowly improving. Trend CBC. Gastritis 9268640 K29.70 SEE ABOVE... Hypertensi ve heart disease with congestive heart failure 9910019 I11.0 Stable. Continue Metoprolol , Entresto, Lasix, & Spironolac tone.Stopp ed Imdur in response to hypotensio n, BPs have since stabilized . Hold parameters in place with Entresto and Metoprolol .Continue to trend blood pressures, monitor lytes and renal function, and adjust meds as clinically indicated. Congestive heart failure 20971502 I50.9 TTE on 01/14 EF 55-70%, mild [...] Multiple o pen wounds of lower leg 162092706 S81.809D Continue current wound care.SWM MACHINE PULLER AND LASTER to follow weekly.No evidence of secondary cellulitis at this time. Laceration of left forearm 2299310822 6225134 S51.812D Repaired at [facility] on 01/09.Sutur es removed on 01/21. Healed. Hyperlipidemia 23646553 E78.5 Presumed stable. Continue statin. Major depr essive disorder 299607286 F32.[address] Duque transition ing Sertraline to Mirtazapin e in hopes it will help his appetite. Generalize d anxiety disorder 71673065 F41.1 Patient takes routine Alprazolam as an [...] Trazodone might be a good option. Constipation 29783583 K5 9.00 Stable. Continue daily Miralax.Ad ditional meds available per standing orders. Allergic rhinitis 389297 04 J30.9 Stable. Continue daily flonase. Glaucoma 54323838 H40.9 Presumed stable. Continue Latanopros t.Outpatie nt f/u with ophtho. Recurrent falls 45905508 2 R29.6 Likely multifacto rial in nature.Con theater projectionist checking vitamin D level.Rece nt Vitamin B12 level normal.Con tinue therapies. Physical deconditioning 1456879111 9102 R68.89 Related to advanced age, recent hospitaliz ation, comorbidit ies.Therap ies have been initiated - will monitor progress.G oal is for patient to return to his ILF home at - no alternate discharge plan is in place. Have discussed with importance of plan B in the event that the patient does not progress with therapy and requires alternate placement upon discharge from [facility]. [id number] Corazon Mckinney, [address] [address] 02/07/2024 13:00:38 03/09/2024 09:21:35 Vitamin D deficiency 11431486 E55.9 Level 15. Start on weekly supplement and trend level as OP. Hypothyroidism 35684686 E03.9 Newly diagnosed while hospitaliz ed at [facility].C ontinue newly-adde d low-dose Synthroid. f/u thyroid studies 6-8 weeks (Mar 2024). Hyponatremia 14128705 E8 7.1 Newly diagnosed with hypothyroi dism. Levothyrox ine has been started.Co ntinue Furosemide & Spironolac tone.Trend serum sodium levels. Have trended 130-131 here.Consi keon fluid restrictio n if worsening. Avoid additional aggravatin g meds. Gastrointe stinal hemorrhage 69939954 K92.2 due to severe gastritis and esophagiti [...] f/u 3 months for repeat EGD. Gastritis 4642683 K29.70 SEE ABOVE... Anemia 704114995 D64.9 Related to above.Cont inue folate replacemen t.Pt did not tolerate oral iron tablets (nausea) so discontinu ed while inpatient. Hgb has been very slowly improving. Trend CBC. Hypertensi ve heart disease with congestive heart failure 8497971 I11.0 Stable. Continue Metoprolol , Entresto, Lasix, & Spironolac tone.Stopp ed Imdur in response to hypotensio n, BPs have since stabilized . Hold parameters in place with Entresto and Metoprolol .Continue to trend blood pressures, monitor lytes and renal function, and adjust meds as clinically indicated. Congestive heart failure 65680770 I50.9 TTE on 01/14 EF 55-70%, mild [...] Multiple o pen wounds of lower leg 856962984 S81.809D Continue current wound care.[employer] to follow weekly.No evidence of secondary cellulitis at this time. Hyperlipidemia 23380763 E78.5 Presumed stable. Continue statin. Major depr essive disorder 981435107 F32.[address] Duque transition ing Sertraline to Mirtazapin e in hopes it will help his appetite. Generalize d anxiety disorder 67910627 F41.1 Patient takes routine Alprazolam as an outpatient at bedtime.Jaeysh morris reports this helps patient sleep through the night, as well. Not ideal treatment in this elderly man with recent falls but due to longstandi ng use, will continue as a PRN med for now. Consider transition to alternate therapy during his stay or as an outpatient . Trazodone might be a good option. Constipation 37442284 K5 9.00 Stable. Continue daily Miralax.Ad ditional meds available per standing orders. Allergic rhinitis 369241 04 J30.9 Stable. Continue daily flonase. Glaucoma 53813891 H40.9 Presumed stable. Continue Latanopros t.Outpatie nt f/u with ophtho. Recurrent falls 77333436 2 R29.6 Likely multifacto rial in nature.Con theater projectionist checking vitamin D level.Rece nt Vitamin B12 level normal.Con tinue therapies. Laceration of left forearm [id number] 1319074 S51.812D Repaired at [facility] on 01/09.Sutur es removed on 01/21. Healed. Physical deconditioning 9685628421 9102 R68.89 Related to advanced age, recent [...] requires alternate placement upon discharge from SNF. [id number] Corazon Mckinney, [address] [address] 02/09/2024 10:42:02 03/09/2024 09:22:52 Vitamin D deficiency 03103161 E55.9 Level 15. Started on weekly supplement and trend level as OP. Hypothyroidism 79920684 E03.9 Newly diagnosed while hospitaliz ed at [facility].C ontinue newly-adde d low-dose Synthroid. f/u thyroid studies 6-8 weeks (Mar 2024). Hyponatremia 06255536 E8 7.1 Newly diagnosed with hypothyroi dism. Levothyrox ine has been started.Co ntinue Furosemide & Spironolac tone.Trend serum sodium levels. Had trended 130-131 here, but most recently was 139.Consid er fluid restrictio n if worsening. Avoid additional aggravatin g meds. Gastrointe stinal hemorrhage 61032291 K92.2 due to severe gastritis and esophagiti s. GI has documented that anticoagul ation is OK to continue as long as the patient has not evidence of active bleeding with melena or hematochez ia.Continu e high dose PPI therapy.Hg b has been very slowly improving, most recently 10.7.Plan is for GI f/u 3 months for repeat EGD. Gastritis 9378286 K29.70 SEE ABOVE... Anemia 438019423 D64.9 Related to above.Cont inue folate replacemen t.Pt did not tolerate oral iron tablets (nausea) so discontinu ed while inpatient. Hgb has been improving. Trend CBC. 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 Continue Metoprolol , Entresto, Lasix, & Spironolac tone.Stopp ed Imdur in response to hypotensio n, BPs have since stabilized . Hold parameters in place with Entresto and Metoprolol .Continue to trend blood pressures, monitor lytes and renal function, and adjust meds as clinically indicated. Congestive heart failure 71146526 I50.9 TTE on 01/14 EF 55-70%, mild [...] Multiple o pen wounds of lower leg 639790300 S81.809D Continue current wound care.[employer] to follow weekly.No evidence of secondary cellulitis at this time. Hyperlipidemia 64038550 E78.5 Presumed stable. Continue statin. Major depr essive disorder 578793950 F32.[address] Duque transition ing Sertraline to Mirtazapin e in hopes it will help his appetite. Generalize d anxiety disorder 61287117 F41.1 Patient takes routine Alprazolam as an [...] Trazodone might be a good option. Constipation 79977291 K5 9.00 Stable. Continue daily Miralax.Ad ditional meds available per standing orders. Allergic rhinitis 813389 04 J30.9 Stable. Continue daily flonase. Glaucoma 50526158 H40.9 Presumed stable. Continue Latanopros t.Outpatie nt f/u with ophtho. Recurrent falls 11553778 2 R29.6 Likely multifacto rial in nature.Con theater projectionist checking vitamin D level.Rece nt Vitamin B12 level normal.Con tinue therapies. Laceration of left forearm 8834870028 1987294 S51.812D Repaired at [facility] on 01/09.Sutur es removed on 01/21. Healed. Physical deconditioning 2485441522 9102 R68.89 Related to advanced age, recent [...] requires alternate placement upon discharge from SNF. [id number] Corazon Mckinney, [address] [address] 02/14/2024 09:31:06 03/09/2024 09:24:27 Hypothyroidism 57774019 E03.9 Newly diagnosed while hospitaliz ed at [facility].C ontinue newly-adde d low-dose Synthroid. f/u thyroid studies 6-8 weeks (Mar 2024). Hyponatremia 83438403 E8 7.1 Newly diagnosed with hypothyroi dism. Levothyrox ine has been started.Co ntinue Furosemide & Spironolac tone.Trend serum sodium levels. Had trended 130-131 here, but most recently was 139.Consid er fluid restrictio n if worsening. Avoid additional aggravatin g meds. Gastrointe stinal hemorrhage 84393712 K92.2 due to severe gastritis and esophagiti s. GI has documented that anticoagul ation is OK to continue as long as the patient has not evidence of active bleeding with melena or hematochez ia.Continu e high dose PPI therapy.Hg b has been very slowly improving, most recently 10.7.Plan is for GI f/u 3 months for repeat EGD. Gastritis 1341988 K29.70 SEE ABOVE... Anemia 034477512 D64.9 Related to above.Cont inue folate replacemen t.Pt did not tolerate oral iron tablets (nausea) so discontinu ed while inpatient. Hgb has been improving. Trend CBC. 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 Continue Metoprolol , Entresto, Lasix, & Spironolac tone.Stopp ed Imdur in response to hypotensio n, BPs have since stabilized . Hold parameters in place with Entresto and Metoprolol .Continue to trend blood pressures, monitor lytes and renal function, and adjust meds as clinically indicated. F/U with Dr. Hwang on 02/18. Congestive heart failure 20132452 I50.9 TTE on 01/14 EF 55-70%, mild [...] Multiple o pen wounds of lower leg 543954441 S81.809D Continue current wound care.[employer] to follow weekly.No evidence of secondary cellulitis at this time. Hyperlipidemia 14991695 E78.5 Presumed stable. Continue statin. Major depr essive disorder 829292513 F32.[address] Duque transition ing Sertraline to Mirtazapin e in hopes it will help his appetite. Generalize d anxiety disorder 46512924 F41.1 Patient takes routine Alprazolam as an [...] a good option. Vitamin D deficiency 347 71703 E55.9 Level 15. Started on weekly supplement and trend level as OP. Constipation 21735747 K5 9.00 Stable. Continue daily Miralax.Ad ditional meds available per standing orders. Allergic rhinitis 213290 04 J30.9 Stable. Continue daily flonase. Glaucoma 94562706 H40.9 Presumed stable. Continue Latanopros t.Outpatie nt f/u with ophtho. Recurrent falls 96673054 2 R29.6 Likely multifacto rial in nature.Con theater projectionist checking vitamin D level.Rece nt Vitamin B12 level normal.Con tinue therapies. Laceration of left forearm 8725192225 0849446 S51.812D Repaired at [facility] on 01/09.Sutur es removed on 01/21. Healed. Physical deconditioning 4258851140 9102 R68.89 Related to advanced age, recent [...] requires alternate placement upon discharge from SNF. [id number] Corazon Mckinney DO [address] [address] 02/16/2024 17:18:51 03/09/2024 09:25:34 Hypertensive heart disease with congestive heart failure 0125956 I11.0 BPs soft, resulting in nursing periodical ly holding Metoprolol and/or Entresto. Stopped Imdur in response to hypotensio n on 01/20.Cont inue Metoprolol , Lasix, & Spironolac tone.Reduc e Entresto to 1/2 dose with hold parameters .Continue to trend blood pressures, monitor lytes and renal function, and adjust meds as clinically indicated. F/U with Dr. Hwang on 02/18. Congestive heart failure 86450849 I50.9 TTE on 01/14 EF 55-70%, mild [...] Multiple o pen wounds of lower leg 291344159 S81.809D Continue current wound care.[employer] to follow weekly. Hyponatremia 03851014 E8 7.1 Newly diagnosed with hypothyroi dism. Levothyrox ine has been started.Co ntinue Furosemide & Spironolac tone.Trend serum sodium levels. Had trended 130-131 here, but most recently was 139.Consid er fluid restrictio n if worsening. Avoid additional aggravatin g meds. Gastrointe stinal hemorrhage 38779541 K92.2 due to severe gastritis and esophagiti s. GI has documented that anticoagul ation is OK to continue as long as the patient has not evidence of active bleeding with melena or hematochez ia.Continu e high dose PPI therapy.Hg b has been very slowly improving, most recently 10.7.Plan is for GI f/u 3 months for repeat EGD. Gastritis 8159712 K29.70 SEE ABOVE... Anemia 393140219 D64.9 Related to above.Cont inue folate replacemen t.Pt did not tolerate oral iron tablets (nausea) so discontinu ed while inpatient. Hgb has been improving. Trend CBC. Hypothyroidism 72310062 E03.9 Newly diagnosed while hospitaliz ed at [facility].C ontinue newly-adde d low-dose Synthroid. f/u thyroid studies 6-8 weeks (Mar 2024). Hyperlipidemia 49872840 E78.5 Presumed stable. Continue statin. Major depr essive disorder 481329016 F32.9 Dr. Duque transition ed Sertraline to Mirtazapin e on 01/28 in hopes it will help his appetite. Mood has been stable. Generalize d anxiety disorder 90027018 F41.1 Patient takes routine Alprazolam as an [...] a good option. Vitamin D deficiency 347 22066 E55.9 Level 15. Started on weekly supplement and trend level as OP. Constipation 55226729 K5 9.00 Stable. Continue daily Miralax.Ad ditional meds available per standing orders. Allergic rhinitis 104020 04 J30.9 Stable. Continue daily flonase. Glaucoma 31047324 H40.9 Presumed stable. Continue Latanopros t.Outpatie nt f/u with ophtho. Recurrent falls 15237699 2 R29.6 Likely multifacto rial in nature.Con theater projectionist checking vitamin D level.Rece nt Vitamin B12 level normal.Con tinue therapies. Laceration of left forearm 1060768686 8859877 S51.812D Repaired at [facility] on 01/09.Sutur es removed on 01/21. Healed. Physical deconditioning 4430119659 9102 R68.89 Related to advanced age, recent [...] requires alternate placement upon discharge from SNF. [id number] Corazon Mckinney DO [address] [address] 02/19/2024 09:33:18 03/09/2024 09:27:33 Hypertensive heart disease with congestive heart failure 0503125 I11.0 BPs soft, resulting in nursing periodical [...] procedure in the future. Congestive heart failure 47496825 I50.9 TTE on 01/14 EF 55-70%, mild [...] Multiple o pen wounds of lower leg 680826287 S81.809D Continue current wound care.[employer] to follow weekly. Hyponatremia 19093468 E8 7.1 Newly diagnosed with hypothyroi dism. Levothyrox ine has been started.Co ntinue Furosemide & Spironolac tone.Trend serum sodium levels. Had trended 130-131 here, but most recently was 139.Consid er fluid restrictio n if worsening. Avoid additional aggravatin g meds. Gastrointe stinal hemorrhage 70568392 K92.2 due to severe gastritis and esophagiti s. GI has documented that anticoagul ation is OK to continue as long as the patient has not evidence of active bleeding with melena or hematochez ia.Continu e high dose PPI therapy.Hg b has been very slowly improving, most recently 10.7.Plan is for GI f/u 3 months for repeat EGD. Gastritis 4846200 K29.70 SEE ABOVE... Anemia 838003250 D64.9 Related to above.Cont inue folate replacemen t.Pt did not tolerate oral iron tablets (nausea) so discontinu ed while inpatient. Hgb has been improving. Trend CBC. Hypothyroidism 50746962 E03.9 Newly diagnosed while hospitaliz ed at [facility].C ontinue newly-adde d low-dose Synthroid. f/u thyroid studies 6-8 weeks (Mar 2024). Hyperlipidemia 01722251 E78.5 Presumed stable. Continue statin. Major depr essive disorder 039611348 F32.9 Dr. Duque transition ed Sertraline to Mirtazapin e on 01/28 in hopes it will help his appetite. Mood has been stable. Generalize d anxiety disorder 12217513 F41.1 Patient takes routine Alprazolam as an outpatient at bedtime.Jayesh birdy reports this helps patient sleep through the night, as well. Not ideal treatment in this elderly man with recent falls but due to longstandi ng use, will continue as a PRN med for now. Consider transition to alternate therapy during his stay or as an outpatient . Trazodone might be a good option. Vitamin D deficiency 347 01755 E55.9 Level 15. Started on weekly supplement and trend level as OP. Constipation 77111326 K5 9.00 Stable. Continue daily Miralax.Ad ditional meds available per standing orders. Allergic rhinitis 213979 04 J30.9 Stable. Continue daily flonase. Glaucoma 12123596 H40.9 Presumed stable. Continue Latanopros t.Outpatie nt f/u with ophtho. Recurrent falls 06495102 2 R29.6 Likely multifacto rial in nature.Con theater projectionist checking vitamin D level.Rece nt Vitamin B12 level normal.Con tinue therapies. Laceration of left forearm 5615825713 7142762 S51.812D Repaired at [facility] on 01/09.Sutur es removed on 01/21. Healed. Physical deconditioning 5809069545 9102 R68.89 Related to advanced age, recent [...] upon discharge from SNF. Peripheral vascular disease 158434183 I73.[address] Hwang's office note from [...] proceed.F /U with Dr. Hwang as directed. [id number] Corazon Bonniebob, DO [facility] [address] [place] [address] 02/22/2024 16:10:24 03/09/2024 09:28:37 Hypertensive heart disease with congestive heart failure 4240887 I11.0 BPs soft, resulting in nursing periodical [...] ization procedure on 02/28. Congestive heart failure 56304912 I50.9 TTE on 01/14 EF 55-70%, mild [...] Dr. Hwang as directed. Peripheral vascular disease 529566613 I73.[address] Hwang's office note from [...] Multiple o pen wounds of lower leg 482176139 S81.809D Continue current wound care.[employer] to follow weekly. Hyponatremia 30585498 E8 7.1 Newly diagnosed with hypothyroi dism. Levothyrox ine has been started.Co ntinue Furosemide & Spironolac tone.Trend serum sodium levels. Had trended 130-131 here, but most recently was 139.Consid er fluid restrictio n if worsening. Avoid additional aggravatin g meds. Gastrointe stinal hemorrhage 12677374 K92.2 due to severe gastritis and esophagiti s. GI has documented that anticoagul ation is OK to continue as long as the patient has not evidence of active bleeding with melena or hematochez ia.Continu e high dose PPI therapy.Hg b has been very slowly improving, most recently 10.5.Plan is for GI f/u 3 months for repeat EGD. Gastritis 0755196 K29.70 SEE ABOVE... Anemia 209712869 D64.9 Related to above.Cont inue folate replacemen t.Pt did not tolerate oral iron tablets (nausea) so discontinu ed while inpatient. Hgb has been improving. Trend CBC. Hypothyroidism 23758895 E03.9 Newly diagnosed while hospitaliz ed at [facility].C ontinue newly-adde d low-dose Synthroid. f/u thyroid studies 6-8 weeks (Mar 2024). Hyperlipidemia 49945094 E78.5 Presumed stable. Continue statin. Major depr essive disorder 526301908 F32.9 Dr. Duque transition ed Sertraline to Mirtazapin e on 01/28 in hopes it will help his appetite. Mood has been stable. Generalize d anxiety disorder 28111223 F41.1 Patient takes routine Alprazolam as an [...] a good option. Vitamin D deficiency 347 78629 E55.9 Level 15. Started on weekly supplement and trend level as OP. Constipation 82067665 K5 9.00 Stable. Continue daily Miralax.Ad ditional meds available per standing orders. Allergic rhinitis 087940 04 J30.9 Stable. Continue daily flonase. Glaucoma 32969074 H40.9 Presumed stable. Continue Latanopros t.Outpatie nt f/u with ophtho. Recurrent falls 81675092 2 R29.6 Likely multifacto rial in nature.Con theater projectionist checking vitamin D level.Rece nt Vitamin B12 level normal.Con tinue therapies. Laceration of left forearm 8254381386 6508551 S51.812D Repaired at [facility] on 01/09.Sutur es removed on 01/21. Healed. [id number] Corazon Hank, DO [place] [address] [place] [address] 03/03/2024 14:30:15 03/17/2024 07:52:00 Hypertensive heart disease with congestive heart failure 9157363 I11.0 BPs soft, resulting in nursing periodical ly holding Metoprolol and/or Entresto. Stopped Imdur and reduced Entresto & Spironolac tone dosing.Con tinue Metoprolol , Lasix, and Entresto.C ontinue to trend blood pressures, monitor lytes and renal function, and adjust meds as clinically indicated. F/U with Dr. Hwang as scheduled 04/08 Peripheral vascular disease 735218812 I73.9 s/p stenting of the left posterior tibial artery per angiogram 02/29/[address] Silver x added to medication continue optimal blood pressure control and statin therapyCon tinue to monitor clinically - fu as scheduled with Dr. Hwang 04/08 Multiple o pen wounds of lower leg 764588753 S81.809D Continue current wound care.[employer] is following weekly - no concern for infection of left heel wound on exam today Congestive heart failure 03877509 I50.9 TTE on 01/14 EF 55-70%, mild [...] s.F/U with Dr. Hwang as directed. Hyponatremia 54369766 E8 7.1 Newly diagnosed with hypothyroi dism. Levothyrox ine has been started.Co ntinue Furosemide & Spironolac tone.Trend serum sodium levels. Had trended 130-131 here, but most recently was 139.Consid er fluid restrictio n if worsening. Avoid additional aggravatin g meds. Gastrointe stinal hemorrhage 11891839 K92.2 due to severe gastritis and esophagiti [...] f/u 3 months for repeat EGD. Gastritis 5827041 K29.70 SEE ABOVE... Anemia 514489975 D64.9 Related to above.Cont inue folate replacemen t.Pt did not tolerate oral iron tablets (nausea) so discontinu ed while inpatient. Hgb has been improving. Trend CBC. Hypothyroidism 45572343 E03.9 Newly diagnosed while hospitaliz ed at [facility].C ontinue newly-adde d low-dose Synthroid. f/u thyroid studies 6-8 weeks (Mar 2024). Hyperlipidemia 77654049 E78.5 Presumed stable. Continue statin. Major depr essive disorder 564762905 F32.9 Dr. Duque transition ed Sertraline to Mirtazapin e on 01/28 in hopes it will help his appetite. Mood has been stable. Generalize d anxiety disorder 08219284 F41.1 Patient was taking routine Alprazolam as [...] therapy is needed. Vitamin D deficiency 347 92040 E55.9 Level 15. Started on weekly supplement and trend level as OP. Constipation 56975192 K5 9.00 Stable. Continue daily Miralax.Ad ditional meds available per standing orders. Allergic rhinitis 832618 04 J30.9 Stable. Continue daily flonase. Glaucoma 48649057 H40.9 Presumed stable. Continue Latanopros t.Outpatie nt f/u with ophtho. Insomnia 627621153 F51.0 1 adding tylenol pm at bedtime which patient and reports he was taking at home [id number] Corazon Bonniebob, [address] [address] 03/06/2024 15:57:34 03/25/2024 13:16:00 Hypertensive heart disease with congestive heart failure 3654375 I11.0 BPs soft, resulting in nursing periodical ly holding Metoprolol and/or Entresto. Stopped Imdur and reduced Entresto & Spironolac tone dosing.Con tinue Metoprolol , Lasix, and Entresto.C ontinue to trend blood pressures, monitor lytes and renal function, and adjust meds as clinically indicated. F/U with Dr. Hwang as scheduled 04/08 Peripheral vascular disease 129989989 I73.9 s/p stenting of the left posterior tibial artery per angiogram 02/29/[address] Silver x added to medication continue optimal blood pressure control and statin therapyCon tinue to monitor clinically - fu as scheduled with Dr. Hwang 04/08 Multiple o pen wounds of lower leg 367509765 S81.809D Continue current wound care.[employer] is following weekly - no concern for infection of left heel wound on exam todayconti nue routine tylenol and prn ultram Congestive heart failure 54485120 I50.9 TTE on 01/14 EF 55-70%, mild [...] s.F/U with Dr. Hwang as directed. Hyponatremia 36480177 E8 7.1 Newly diagnosed with hypothyroi dism. Levothyrox ine has been started.Co ntinue Furosemide & Spironolac tone.Trend serum sodium levels. Had trended 130-131 here, but most recently was 139.Consid er fluid restrictio n if worsening. Avoid additional aggravatin g meds. Gastrointe stinal hemorrhage 79467086 K92.2 due to severe gastritis and esophagiti [...] f/u 3 months for repeat EGD. Gastritis 3462339 K29.70 SEE ABOVE... Anemia 293453282 D64.9 Related to above.Cont inue folate replacemen t.Pt did not tolerate oral iron tablets (nausea) so discontinu ed while inpatient. Hgb has been improving. Trend CBC. Hypothyroidism 07351535 E03.9 Newly diagnosed while hospitaliz ed at [facility].C ontinue newly-adde d low-dose Synthroid. f/u thyroid studies 6-8 weeks (Mar 2024). Hyperlipidemia 69845907 E78.5 Presumed stable. Continue statin. Major depr essive disorder 430159477 F32.9 Dr. Duque transition ed Sertraline to Mirtazapin e on 01/28 in hopes it will help his appetite. Mood has been stable. Generalize d anxiety disorder 18108817 F41.1 Patient was taking routine Alprazolam as [...] therapy is needed. Vitamin D deficiency 347 43416 E55.9 Level 15. Started on weekly supplement and trend level as OP. Constipation 59293793 K5 9.00 Stable. Continue daily Miralax.Ad ditional meds available per standing orders. Allergic rhinitis 878461 04 J30.9 Stable. Continue daily flonase. Glaucoma 84086659 H40.9 Presumed stable. Continue Latanopros t.Outpatie nt f/u with ophtho. Insomnia 221702866 F51.0 1 adding tylenol pm at bedtime which patient and reports he was taking at home [id number] Corazon Mckinney DO [address] [address] 03/26/2024 08:34:50 04/07/2024 09:28:10 Hypertensive heart disease with congestive heart failure 1971067 I11.0 BPs soft at times. Continue Metoprolol , Lasix, and Entresto with hold parameters in place.Cont inue to trend blood pressures, monitor lytes and renal function, and adjust meds as clinically indicated. F/U with Dr. Hwang as scheduled 04/08. Peripheral vascular disease 814964776 I73.9 s/p stenting of the left posterior tibial artery per angiogram on 02/29/[address] Hwang.Plav ix added to medication . Continues on Atorvastat in and Eliquis, as well.Malrene nue optimal blood pressure control.Mo nitor clinically . F/U as scheduled with Dr. Hwang on 04/08. Congestive heart failure 06217676 I50.9 TTE on 01/14 EF 55-70%, mild [...] s.F/U with Dr. Hwang as directed. Hyponatremia 17118710 E8 7.1 Newly diagnosed with hypothyroi dism. Levothyrox ine has been started.Co ntinue Furosemide & Spironolac tone.Trend serum sodium levels. Had trended 130-131 here, but most recently was 135.Consid er fluid restrictio n if worsening. Avoid additional aggravatin g meds. Gastrointe stinal hemorrhage 93138111 K92.2 due to severe gastritis and esophagiti s. GI has documented that anticoagul ation is OK to continue as long as the patient has not evidence of active bleeding with melena or hematochez ia. Hgb was as low as 7.Continue high dose PPI therapy.Mo nitor closely as pt is now on both Eliquis & Plavix after recent LLE stenting. F/U Hgb was 11.4.Pt will need F/U with GI for EGD, initially recommende d 3 months, which would be April 2024. Gastritis 5692198 K29.70 SEE ABOVE... Anemia 411352502 D64.9 Related to above.Cont inue folate replacemen t.Pt did not tolerate oral iron tablets (nausea) so discontinu ed while inpatient. Hgb has been improving. Trend CBC.SEE ABOVE... Hypothyroidism 12845729 E03.9 Newly diagnosed while hospitaliz ed at [facility].C ontinue newly-adde d low-dose Synthroid. f/u thyroid studies 6-8 weeks, will order for 04/01. Hyperlipidemia 89040013 E78.5 Presumed stable. Continue statin. Major depr essive disorder 986312601 F32.9 Transition ed Sertraline to Mirtazapin e on 01/28 in hopes it will help his appetite. Mood has been stable. Generalize d anxiety disorder 21257674 F41.1 Patient was taking routine Alprazolam as an outpatient at bedtime. Has been removed from this medication and are utilize Tylenol PM in its stead. Ideally would transition over to Trazodone in the future. Will keep an open conversati on with patient. Vitamin D deficiency 347 05269 E55.9 Level 15. Started on weekly supplement and trend level as OP. Constipation 58917380 K5 9.00 Stable. Continue daily Miralax.Ad ditional meds available per standing orders. Allergic rhinitis 261403 04 J30.9 Stable. Continue PRN ocean nasal spray.Flon ase has been discontinu ed per pt's request. Glaucoma 59760754 H40.9 Presumed stable. Continue Latanopros t.Outpatie nt f/u with ophtho. Insomnia 761899998 F51.0 1 SEE ABOVE... Unstageabl e pressure injury of left heel [id number] 8900245 L89.620 [facility] [employer] is following weekly - no concerns recently, decreasing in size. Continue to tx with santyl & aquacel daily.Cont inue offloading with Prevalon boot.Marlene nue routine Tylenol and PRN Tramadol. [id number] Corazon Mckinney DO [address] [address] 04/24/2024 10:45:02 04/28/2024 05:14:43 Hypertensive heart disease with congestive heart failure 2717217 I11.0 Stable. Continue Metoprolol , Lasix, and Entresto.C ontinue to trend blood pressures, monitor lytes and renal function, and adjust meds as clinically indicated. F/U with Dr. Hwang on 07/15. Last seen on 04/08 with NNO. Peripheral vascular disease 402818885 I73.9 s/p stenting of the left posterior tibial artery per angiogram on 02/29/[address] Hwang.Cont inues on Atorvastat in, Plavix, and Eliquis.Co ntinue optimal blood pressure control.Mo nitor clinically . F/U with Dr. Hwang on 07/15. Last seen on 04/08 with NNO. Congestive heart failure 15694242 I50.9 TTE on 01/14 EF 55-70%, mild [...] s.F/U with Dr. Hwang as directed. Hyponatremia 54982643 E8 7.1 Recently diagnosed with hypothyroi dism. Levothyrox ine started.Co ntinue Furosemide & Spironolac tone.Most recently Na was 135. Continue to trend serum sodium levels.Aj id additional aggravatin g meds. Gastrointe stinal hemorrhage 64279725 K92.2 due to severe gastritis and esophagiti [...] months, which would be April 2024. Gastritis 9752843 K29.70 SEE ABOVE... Anemia 893122395 D64.9 Related to above.Cont inue folate replacemen t.Pt did not tolerate oral iron tablets (nausea) so discontinu ed while inpatient. Hgb has been improving. Trend CBC.SEE ABOVE... Hypothyroidism 13145018 E03.9 Newly diagnosed while hospitaliz ed at [facility].C ontinue newly-adde d low-dose Synthroid. F/U studies on 04/01 = TSH 1.859, Free T4 0.93. Hyperlipidemia 07770308 E78.5 Stable. FLP within desired limits. Continue statin. Major depr essive disorder 993829919 F32.9 Transition ed Sertraline to Mirtazapin e on 01/29/24 in hopes it will help his appetite. Mood has been stable. Generalize d anxiety disorder 55317355 F41.1 Patient was taking routine Alprazolam as an outpatient at bedtime. Has been removed from this medication and utilizing Tylenol PM in its stead. Ideally would transition over to Trazodone in the future. Will keep an open conversati on with patient. Insomnia 092548739 F51.0 1 SEE ABOVE... Vitamin D deficiency 347 27254 E55.9 Level 15. Started on weekly supplement and trend level as OP. Recently up to 25. Constipation 63787998 K5 9.00 Stable. Continue daily Miralax.Ad ditional meds available per standing orders. Allergic rhinitis 547453 04 J30.9 Stable. Continue PRN ocean nasal spray.Flon ase has been discontinu ed per pt's request. Glaucoma 03768102 H40.9 Presumed stable. Continue Latanopros t.Outpatie nt f/u with ophtho. 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 Continue to tx with aquacel daily.Cont inue offloading with Prevalon boot.Marlene nue routine Tylenol and PRN Tramadol. Osteoarthr itis of multiple joints 479678979 M15.9 Stable. Pt will see [facility] ortho tomorrow with injections to left knee & left shoulder.C ontinue routine APAP & PRN Tramadol. [id number] Corazon Mckinney DO [facility] [address] [place] [address] 05/21/2024 09:20:16 05/31/2024 13:44:06 Hypertensive heart disease with congestive heart failure 0216857 I11.0 Stable. Continue Metoprolol , Lasix, and Entresto.C ontinue to trend blood pressures, monitor lytes and renal function, and adjust meds as clinically indicated. F/U with Dr. Hwang on 07/15. Last seen on 04/08 with NNO. Peripheral vascular disease 405176146 I73.9 s/p stenting of the left posterior tibial artery per angiogram on 02/29/[address] Hwang.Cont inues on Atorvastat in, Plavix, and Eliquis.Co ntinue optimal blood pressure control.Mo nitor clinically . F/U with Dr. Hwang on 07/15. Last seen on 04/08 with NNO. 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 Congestive heart failure 05028294 I50.9 TTE on 01/14 EF 55-70%, mild [...] s.F/U with Dr. Hwang as directed. Hyponatremia 89420097 E8 7.1 Recently diagnosed with hypothyroi dism. Levothyrox ine started.Co ntinue Furosemide & Spironolac tone.Most recently Na was 135. Continue to trend serum sodium levels.Aj id additional aggravatin g meds. Osteoarthr itis of multiple joints 499860696 M15.9 Stable. Pt follows with [facility] ortho for injections to left knee & left shoulder, last done on 04/25.Marlene nue routine APAP & PRN Tramadol. Gastrointe stinal hemorrhage 47201069 K92.2 due to severe gastritis and esophagiti [...] (GI) scheduled as needs f/u EGD. Gastritis 6836977 K29.70 SEE ABOVE... Anemia 373975608 D64.9 Related to above.Cont inue folate replacemen t.Pt did not tolerate oral iron tablets (nausea) so discontinu ed while inpatient. Hgb has been improving. Trend CBC.SEE ABOVE... Hypothyroidism 16538227 E03.9 Newly diagnosed while hospitaliz ed at [facility].C ontinue newly-adde d low-dose Synthroid. F/U studies on 04/01 = TSH 1.859, Free T4 0.93. Hyperlipidemia 82795419 E78.5 Stable. FLP within desired limits. Continue statin. Major depr essive disorder 494090278 F32.9 Transition ed Sertraline to Mirtazapin e on 01/29/24 in hopes it will help his appetite. Mood has been stable. Generalize d anxiety disorder 90949124 F41.1 Patient was taking routine Alprazolam as an outpatient at bedtime. Has been removed from this medication and utilizing Tylenol PM in its stead. Ideally would transition over to Trazodone in the future. Will keep an open conversati on with patient. Insomnia 662893219 F51.0 1 SEE ABOVE... Vitamin D deficiency 347 40664 E55.9 Level 15. Started on weekly supplement and trend level as OP. Recently up to 25. Constipation 56348987 K5 9.00 Stable. Continue daily Miralax.Ad ditional meds available per standing orders. Allergic rhinitis 594199 04 J30.9 Stable. Continue PRN ocean nasal spray.Flon ase has been discontinu ed per pt's request. Glaucoma 11732647 H40.9 Presumed stable. Continue Latanopros t.Outpatie nt f/u with ophtho. [id number] Corazon Mckinney DO [facility] [address] [place] [address] 06/18/2024 10:51:22 06/27/2024 09:47:56 Gastrointestinal hemorrhage 78142292 K92.2 due to severe gastritis and esophagiti [...] U with Dr. Jaime (GI) PRN. Gastritis 7994959 K29.70 SEE ABOVE... Anemia 182179772 D64.9 Related to above.Cont inue folate replacemen t.Pt did not tolerate oral iron tablets (nausea) so discontinu ed while inpatient. Hgb has been stable.SEE ABOVE... Hypertensi ve heart disease with congestive heart failure 4790237 I11.0 Stable. Continue Metoprolol , Lasix, and Entresto.C ontinue to trend blood pressures, monitor lytes and renal function, and adjust meds as clinically indicated. F/U with Dr. Hwang on 07/15. Last seen on 04/08 with NNO. Peripheral vascular disease 142449092 I73.9 s/p stenting of the left posterior tibial artery per angiogram on 02/29/[address] Hwang.Cont inues on Atorvastat in, Plavix, and Eliquis.Co ntinue optimal blood pressure control.Mo nitor clinically . F/U with Dr. Hwang on 07/15. Last seen on 04/08 with NNO. 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 Congestive heart failure 44987009 I50.9 TTE on 01/14 EF 55-70%, mild [...] s.F/U with Dr. Hwang as directed. Hyponatremia 15342883 E8 7.1 Recently diagnosed with hypothyroi dism. Levothyrox ine started.Co ntinue Furosemide & Spironolac tone.Most recently Na was 135. Continue to trend serum sodium levels.Aj id additional aggravatin g meds. Osteoarthr itis of multiple joints 878199532 M15.9 Stable. Pt follows with [facility] ortho for injections to left knee & left shoulder, last done on 04/25.Marlene nue routine APAP & PRN Tramadol. Hypothyroidism 94426768 E03.9 Newly diagnosed while hospitaliz ed at [facility].C ontinue low-dose Synthroid. F/U studies on 04/01/24 = TSH 1.859, Free T4 0.93. Hyperlipidemia 80181665 E78.5 Stable. FLP within desired limits. Continue statin. Major depr essive disorder 467847405 F32.9 Transition ed Sertraline to Mirtazapin e on 01/29/24 in hopes it will help his appetite. Mood has been stable. Generalize d anxiety disorder 87257116 F41.1 Patient was taking routine Alprazolam as an outpatient at bedtime. Has been removed from this medication and utilizing Tylenol PM instead. Ideally would transition over to Trazodone in the future. Will keep an open conversati on with patient. Insomnia 462177780 F51.0 1 SEE ABOVE... Vitamin D deficiency 347 56629 E55.9 Level 15. Started on weekly supplement and trend level as OP. Recently up to 25. Constipation 89597258 K5 9.00 Stable. Continue daily Miralax.Ad ditional meds available per standing orders. Allergic rhinitis 199153 04 J30.9 Stable. Continue PRN ocean nasal spray.Flon ase has been discontinu ed per pt's request. Glaucoma 31932747 H40.9 Presumed stable. Continue Latanopros t.Outpatie nt f/u with ophtho. [id number] Corazon Mckinney, DO [facility] [address] [place] [address] 06/26/2024 03:33:43 06/28/2024 23:10:56 Hematemesis 7589399 K92.0 resolved at this timeplavix and eliquis briefly held during his hospitaliz ation - plavix resumed yesterday, eliquis to resume tomorrowHb with mild drop from 14.4 to 11.7GI consulted and did not recommend further testing at this time - continue PPI therapy (unclear why this medication was discontinu ed on hospital discharge) . [facility] with [facility] 6-8 weeksconti nue prn zofran Gastrointe stinal hemorrhage 54458863 K92.2 see above - due to severe [...] (GI) 6-8 weeksF/U CBC in am Anemia 483045601 D64.9 Related to above.Cont inue folate replacemen t.Pt did not tolerate oral iron tablets (nausea) so discontinu ed while inpatient. Hgb has been stable.SEE ABOVE... Hypertensi ve heart disease with congestive heart failure 6900924 I11.0 Stable. Continue Metoprolol , Lasix, and Entresto.C ontinue to trend blood pressures, monitor lytes and renal function, and adjust meds as clinically indicated. F/U with Dr. Hwang on 07/15. Last seen on 04/08 with NNO. Congestive heart failure 26174747 I50.9 TTE on 01/14 EF 55-70%, mild [...] Dr. Hwang as directed. Peripheral vascular disease 115624932 I73.9 s/p stenting of the left posterior tibial artery per angiogram on 02/29/[address] Hwang.Cont inues on Atorvastat in, Plavix, and Eliquis.Co ntinue optimal blood pressure control. 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 Hyponatremia 36578605 E8 7.1 Recently diagnosed with hypothyroi dism. Levothyrox ine started.Co ntinue Furosemide & Spironolac tone.Marlene nue to trend serum sodium levels.Aj id additional aggravatin g meds. Osteoarthr itis of multiple joints 955013778 M15.9 Stable. Pt follows with [facility] ortho for injections to left knee & left shoulder, last done on 04/25.Marlene nue routine APAP & PRN Tramadol. Hypothyroidism 50846752 E03.9 Newly diagnosed while hospitaliz ed at [facility].C ontinue low-dose Synthroid. F/U studies on 04/01/24 = TSH 1.859, Free T4 0.93. Hyperlipidemia 03952357 E78.5 Stable. FLP within desired limits. Continue statin. Major depr essive disorder 575224201 F32.9 Transition ed Sertraline to Mirtazapin e on 01/29/24 in hopes it will help his appetite. Mood has been stable. Generalize d anxiety disorder 15134442 F41.1 Patient was taking routine Alprazolam as an outpatient at bedtime. Has been removed from this medication and utilizing Tylenol PM instead with acceptable control Insomnia 524672643 F51.0 1 SEE ABOVE... Vitamin D deficiency 347 08589 E55.9 Level 15. Started on weekly supplement and trend level as OP. Recently up to 25. Constipation 16560561 K5 9.00 Stable. Continue daily Miralax.Ad ditional meds available per standing orders. Allergic rhinitis 905102 04 J30.9 Stable. Continue PRN ocean nasal spray and routine flonase (resumed per patient request) Glaucoma 71548292 H40.9 Presumed stable. Continue Latanopros t.Outpatie nt f/u with ophtho. Physical deconditioning 4491059909 9102 R53.81 related to advanced age, recent hospitaliz ation, comorbidit iesskilled services have been approved with update planned for 07/01- will monitor progresspa maryann will remain at facility as LTC resident upon SNF discharge [id number] Corazon Mckinney, DO [facility] [address] [place] [address] 06/27/2024 14:22:41 06/28/2024 23:10:08 Congestion of throat 373440022 R09.89 Increase Flonase dosing and move to [facility] administra tion. Continue PRN nasal spray.Also receives Tylenol with Benadryl at bedtime. Hypokalemia 81826632 E87 .6 Supplement ing. Continue to trend level. Hematemesis 2670061 K92. 0 Due to severe gastritis and esophagiti s. Resolved at this time. Hgb with mild drop from 14.4 to 11.7. GI consulted and did not recommend further testing at this time. He was treated with IV PPI therapy while at [facility]. Plavix and Eliquis briefly held during his hospitaliz ation, Plavix resumed on 06/24 and Eliquis resumed on 06/25.Marlene nue high-dose PPI -- pt did not tolerate reduction to daily dosing despite 3 month course of high-dose treatment. Continue PRN Zofran.F/U with Dr. Jaime (GI) in 6-8 weeks -- nursing to schedule. Gastrointe stinal hemorrhage 50482212 K92.2 SEE ABOVE... Anemia 422523303 D64.9 Hgb has been stable.Con tinue folate replacemen t.Pt did not tolerate oral iron tablets (nausea) so discontinu ed.SEE ABOVE... Hypertensi ve heart disease with congestive heart failure 1691246 I11.0 Stable. Continue Metoprolol , Lasix, and Entresto.C ontinue to trend blood pressures, monitor lytes and renal function, and adjust meds as clinically indicated. F/U with Dr. Hwang on 07/15. Last seen on 04/08 with NNO. Congestive heart failure 58909603 I50.9 TTE on 01/14 EF 55-70%, mild [...] Dr. Hwang as directed. Peripheral vascular disease 161306926 I73.9 s/p stenting of the left posterior tibial artery per angiogram on 02/29/[address] Hwang.Cont inues on Atorvastat in, Plavix, and Eliquis.Co ntinue optimal blood pressure control. 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 Hyponatremia 22704698 E8 7.1 Stable. Continue to trend serum sodium levels.Aj id additional aggravatin g meds. Osteoarthr itis of multiple joints 365882242 M15.9 Stable. Pt follows with [facility] ortho for injections to left knee & left shoulder, last done on 04/25.Marlene nue routine APAP & PRN Tramadol. Hypothyroidism 06927174 E03.9 Stable. 04/01/24 = TSH 1.859, Free T4 0.93. Continue low-dose Synthroid. Hyperlipidemia 13102481 E78.5 Stable. FLP within desired limits. Continue statin. Major depr essive disorder 312144071 F32.9 Transition ed Sertraline to Mirtazapin e on 01/29/24 in hopes it will help his appetite. Mood has been stable. Generalize d anxiety disorder 47816631 F41.1 Patient was taking routine Alprazolam as an outpatient at bedtime. Has been removed from this medication and utilizing Tylenol PM instead with acceptable control. Insomnia 939216802 F51.0 1 SEE ABOVE... Vitamin D deficiency 347 78913 E55.9 Level 15. Started on weekly supplement and continue to trend level. Constipation 47776006 K5 9.00 Stable. Continue daily Miralax.Ad ditional meds available per standing orders. Allergic rhinitis 679783 04 J30.9 SEE ABOVE... Glaucoma 15043118 H40.9 Presumed stable. Continue Latanopros t.Outpatie nt f/u with ophtho. Physical deconditioning 7527596316 9102 R53.81 Related to advanced age, recent [...] 1 [employer] (MEDICARE REPLACEMENT/ ADVANTAGE - PPO) [id number] Stefan Burr [id number] Edison Burr 05/21/2024 1 [employer] (MEDICARE REPLACEMENT/ ADVANTAGE - PPO) [id number] Stefan Burr [id number] Edison Burr 06/18/2024 1 [employer] (MEDICARE REPLACEMENT/ ADVANTAGE - PPO) [id number] Stefan Burr [id number] Edison Burr 06/25/2024 1 [employer] (MEDICARE REPLACEMENT/ ADVANTAGE - PPO) [id number] Stefan Burr [id number] Edison Burr 06/27/2024 1 [employer] (MEDICARE REPLACEMENT/ ADVANTAGE - PPO) [id number] Stefan Burr [id number] Edison Burr Notes Date Note Type Note Provider Name and Address Organization Details Recorded Time 04/24/2024 text/html F/U routine visi t with review of chronic medical conditions and medications. Delamr is seated in his w/c in his room, self-propelling about, with his by his side. He reports he is doing well overall and is without concerns today. He does note has had chronic OA pain of his left knee and left shoulder, for which he will be seen by [facility] ortho tomorrow with injections. He tells me that the ulceration on his left foot continues to become smaller every week. Currently tx with aquacel ag and dry dressing daily, followed by [facility] in-house. VSS. Staff is without concerns. No recent falls or acute illnesses. He continues to receive [place] [address] [facility], [place], [address], [employer] 04/24/2024 15:01:26 05/21/2024 text/html F/U [...] therapy [place] [address] [facility], [place], [address], [employer] 05/22/2024 08:44:54 06/18/2024 text/html F/U [...] few times a week. Juanita Armstrong, ISAAC [address] [facility], [place], [address], [facility] 06/18/2024 16:17:46 06/25/2024 text/html 89 year old LTC resident of this facility with past medical history of anxiety, depression, atrial fibrillation on Eliquis, right-sided heart failure preserved ejection fraction, hypertension, hyperlipidemia, hypothyroidism , Iron-deficiency anemia, severe erosive esophagitis, [id number] gastropathy readmitted to [place] subsequent to an inpatient stay at [facility] 06/23-06/24/2024 due to abdominal bloating and coffee [...] scheduled [place] [address] [place], [address], [facility] 06/26/2024 04:36:35 06/27/2024 text/html F/U [...] to bar Sebastian of 1 Juanita Armstrong, ISAAC [address] [facility], [place], [address], [facility] 06/27/2024 16:31:42
--- NOTE | 2024-07-09 15:37 | PM.DS ---
DS: Admitting Diagnosis Discharge Date 07/07/24 Admitting Diagnosis Acute surgical abdomen secondary to ischemic large bowel (cecum). DS: Discharge Diagnosis Discharge Diagnosis (1) Acute ischemia of large intestine: Code(s): K55.039 - Acute (reversible) ischemia of large intestine, extent unspecified Status: Acute (2) Septic shock: Code(s): A41.9 - Sepsis, unspecified organism; R65.21 - Severe sepsis with septic shock Status: Acute DS: Summary Hospital Course Hospital Course: Patient was initially seen in the emergency room on June 30, 2025. She presented with abdominal pain with hypotension and tachycardia. He had a history of atrial fibrillation and was on Eliquis. CT scan abdomen pelvis was performed showing pneumatosis of the wall the cecum. He also had portal venous gas. Patient had elevated lactic acid level and appeared to be septic. He did respond to IV fluid boluses and was taken emergently to the operating room by Dr. Milligan. The patient underwent a exploratory laparotomy and open right hemicolectomy with ileocolonic anastomosis. Postoperatively he went directly to the intensive care unit where he remained on the ventilator and pressors overnight. By the next morning he seemed to stabilize and he was eventually extubated from the ventilator. He tolerated extubation well. He was weaned off all his pressors and then eventually was transferred out of the intensive care unit to the floor. While on the floor his postoperative ileus resolving started have bowel function. He was then advanced to clear liquids and then eventually advanced to regular diet without difficulty. He was having bowel movements and tolerating regular food. White blood count was normal. No fever. He was seen evaluated and physical therapy and occupational therapy was working with him. It was decided that discharge he could go to intermediate facility and that was arranged by case management. The patient was seen each day postoperatively by the surgery team. His incision was healing well without evidence of infection. Expected mild incisional pain which was well controlled with nonnarcotic pain medications. He was discharged to intermediate facility on postop day 7 in improved condition. IV antibiotics were stopped at the time of discharge. He was discharged on Levaquin and Flagyl for oral antibiotics. Status at Discharge Functional status at discharge: uses cane/walker Overall status at discharge: patient is progressing back to baseline Time Spent with Patient Time attestation: Total time spent providing and/or coordinating discharge services: Time spent: Less than 30 minutes Exam GI: Other: Abdomen is soft and nondistended. Minimal tenderness around the midline incision. Incision is healing well without any redness or drainage. Nathan in place. No evidence of wound infection or incisional hernia or dehiscence of the fascia. DS: Data Data Completed and Pending Completed studies during hospitalization: Pending at discharge 07/01/24 00:39 Surgical [PTH] Routine Discharge Plan Discharge Attending physician on discharge: Ketan Milligan Consulting providers: Gian Doan; Mariella Serrano; Herminio Cardenas; Annabel Grossman; Jia Zarate; Claude Trujillo; Mahesh Hemphill; Earl Silveira; Sherita Richardson; Mateo Wood Discharging Clinician: Nasir Phillips Anticipated Discharge Date/Time: 07/07/24 11:19 Patient Disposition: SNF Activity: june shower Diet: heart healthy Wound Care Instructions: incision open to air Patient Instructions: Enoxaparin (By injection), Apixaban (By mouth), Heart Failure (GEN) Patient Language: Danish Stand Alone Forms: General Discharge Information Follow-up/Referrals: Ketan Milligan, [Physician] - (Patient to follow-up with Dr. Milligan in the office in 7 to 10 days for wound check and staple removal. Call [phone] for an appointment.) Discharge Medications: New metronidazole 500 mg Tablet 500 mg PO Q8HR 3 Days Qty: 9 0RF levofloxacin 750 mg tablet 750 mg PO DAILY 3 Days Qty: 3 0RF Continued levothyroxine 25 mcg capsule 25 mcg PO DAILY mirtazapine 15 mg tablet 15 mg PO DAILY tramadol 50 mg tablet 50 mg PO Q6H PRN (Reason: pain (scale score 7-10)) Saline Nasal 0.65 % aerosol,spray 1 spray intranasal Q4H PRN (Reason: nasal congestion) guaifenesin 100 mg/5 mL liquid 200 mg PO Q4H PRN (Reason: cough) acetaminophen 325 mg capsule 650 mg PO BID PRN (Reason: pain (scale score 1-3)) triamcinolone acetonide 0.1 % ointment 1 applic TOPICAL BID PRN (Reason: rash) ondansetron 4 mg tablet,disintegrating 4 mg PO Q6H PRN (Reason: nausea and vomiting) clopidogrel 75 mg tablet 75 mg PO DAILY Eliquis 2.5 mg tablet 2.5 mg PO BID ergocalciferol (vitamin D2) 1,250 mcg (50,000 unit) capsule 1,250 mcg PO WEEKLY folic acid 1 mg tablet 1 mg PO DAILY metoprolol succinate 25 mg tablet extended release 24 hr 12.5 mg PO DAILY polyethylene glycol 3350 [Miralax] 17 gram/dose powder 17 g PO DAILY PRN (Reason: constipation) spironolactone [Aldactone] 25 mg tablet 12.5 mg PO DAILY potassium chloride [Klor-Con M20] 20 mEq tablet,ER particles/crystals 20 meq PO DAILY pantoprazole 40 mg tablet,delayed release (DR/EC) 40 mg PO BID furosemide 20 mg Tablet 20 mg PO DAILY atorvastatin 20 mg Tablet 20 mg PO DAILY Entresto 24-26 mg Tablet 0.5 tablet PO BID fluticasone propionate 50 mcg/actuation [place],Suspension 1 spray INTRANASAL HS latanoprost 0.005 % Drops 1 drp LEFT EYE QPM diphenhydramine-acetaminophen [Tylenol PM Extra Strength] 25-500 mg Tablet 2 tablet PO HS PRN (Reason: sleep) Date of admission: 07/01/24 01:15 Primary Care Provider: Lauren,Antelmo Sotelo Admitting Provider: Ketan Milligan Attending physician on admission: Nasir Phillips Condition: Critical
== END 2024-07-07 18:23 | DRG 853 ==
LOC: ANHED 23:07 → ANHICU 07-01 02:33 → ANH2MED 07-07 11:22 → ANHICU 07-08 09:45 → ANHIMU 07-08 09:45
PROVIDERS: Anesthesiology; Internal Medicine; Student in an Organized Health Care Education/Training Program; Admitting Provider Surgery; Emergency Provider Emergency Medicine; PCP Family Medicine; Visit Provider Surgery
PROC: (CPT 49000; principal; 2024-06-30 23:30)
DX: A41.9 Sepsis, unspecified organism (principal); J96.00 Acute respiratory failure, unspecified whether with hypoxia or hypercapnia; K65.0 Generalized (acute) peritonitis; R65.21 Severe sepsis with septic shock; K55.039 Acute (reversible) ischemia of large intestine, extent unspecified; K55.1 Chronic vascular disorders of intestine; E87.1 Hypo-osmolality and hyponatremia; I48.91 Unspecified atrial fibrillation; I25.10 Atherosclerotic heart disease of native coronary artery without angina pectoris; H40.9 Unspecified glaucoma; E78.5 Hyperlipidemia, unspecified; I10 Essential (primary) hypertension; E87.70 Fluid overload, unspecified; E87.6 Hypokalemia; Z79.01 Long term (current) use of anticoagulants
CPT/HCPCS: 36415; 36430; 36600; 71045; 74177; 80048; 80053; 81001; 82375; 82805; 82948; 83050; 83605; 83690; 83735; 83880; 84100; 84145; 84484; 85014; 85018; 85025; 85027; 85380; 85610; 85730; 86850; 86900; 86901; 87040; 87086; 87641; 88307; 92610; 93005; 93306; 94002; 94003; 96361; 96365; 96367; 96375; 97161; 97166; 99285; A9270; C1751; C8929; J0282; J0650; J1171; J1650; J1720; J1938; J2250; J2371; J2405; J2470; J2543; J2704; J3010; J3475; J3480; J7030; J7040; J7050; J7060; J7120; P9017; P9045; P9047; Q9957; Q9967

== ENCOUNTER 2024-10-14 13:31 | Observation (INO) | payer MEDICARE, SELFPAY ==
[2024-10-14] VITALS (72 sets, daily range): BP systolic 69–122; BP diastolic 42–87; PULSE 75–125; RESP 13–29; TEMP 35.8; O2SAT 78–99
--- NOTE | ~2024-10-14 | XR_ITS ---
Examination: XR chest 1V portable Clinical History: hypoxia Comparison: 07/04/2024 Technique: Portable AP Findings: Diffusely calcified descending thoracic aorta. Atrial appendage excluder device. Heart size enlarged. Large left and small right pleural effusions, associated basilar opacities. No acute bony abnormality. IMPRESSION: 1. Pleural effusions with bibasilar atelectasis and/or airspace disease, left lung worse. Reviewed, dictated and finalized at location R.
--- NOTE | 2024-10-14 13:50 | ECG_ITS ---
Test Date: 2024-10-14 13:57:57 Measurements Intervals Burr Rate: 98 P: 0 UT: 0 QRS: 69 QRSD: 112 T: 29 QT: 363 QTc: 465 Interpretive Statements ATRIAL FIBRILLATION LOW QRS VOLTAGE IN PRECORDIAL LEADS [QRS DEFLECTION < 1.0 mV IN CHEST LEADS] INCOMPLETE RIGHT BUNDLE BRANCH BLOCK [90+ ms QRS DURATION, TERMINAL R IN V1/V2, 40+ ms S IN I/aVL/V4/V5/V6] NONSPECIFIC T-WAVE ABNORMALITY ABNORMAL RHYTHM ECG Compared to ECG 06/30/2024 18:38:06 HEART RATE CONTROL HIS IMPROVED AND COMPLETE RIGHT BUNDLE BRANCH BLOCK IS NOT PRESENT Electronically Signed On 10-16-2024 15:18:04 CDT by Jaswant Cameron M.D.
--- NOTE | 2024-10-14 13:53 | ED.AMS ---
HPI - Altered Mental Status General Chief Complaint: Altered Mental Status Stated Complaint: unresponsive Time Seen by Provider: 10/14/24 13:40 Source: family and RN notes reviewed Mode of arrival: EMS Limitations: altered mental status and clinical condition History of Present Illness HPI narrative: Patient presents with report that he had been unresponsive since this morning. Family states that he has been having difficulty sleeping and so he was given a Xanax last night and he subsequently slept all night. He has had a complicated medical history and been in and out of several hospitals. He required partial resection of intestines within the past year. Most recently he has been noted to have fluid on his lungs.He had an Amulet appendage closure performed 1.5 weeks ago at [facility] [place] for atrial fibrillation. He subsequently required pericardiocentesis for pericardial effusion and was in the ICU for a few days but discharged back to [facility] just over 1 week ago, on Monday. He fell asleep while attempting to do physical therapy this morning. He is not typically on oxygen at baseline. He is reportedly DNR/DNI. Family requesting last rites be performed; spiritual care involved and patient's client partner also called. No previous thoracentesis. Family note that they want him to be comfortable and want to not perform any heroic or invasive measures. Related Data Home Medications ?Medication ?Instructions ?Recorded ?Confirmed ?Last Taken ?Type furosemide 20 mg tablet 20 mg PO DAILY 09/22/21 08/16/24 06/03/22 09:00 History atorvastatin 20 mg tablet 20 mg PO DAILY 09/23/21 08/16/24 06/03/22 History diphenhydramine 25 2 tablet PO HS PRN sleep 09/23/21 08/16/24 06/02/22 History mg-acetaminophen 500 mg tablet (Tylenol PM Extra Strength) fluticasone propionate 50 1 spray intranasal HS 09/23/21 08/16/24 06/02/22 History mcg/actuation nasal spray,suspension latanoprost 0.005 % eye drops 1 drp LEFT EYE QPM 09/23/21 08/16/24 06/02/22 History sacubitril 24 mg-valsartan 26 mg 0.5 tablet PO BID 09/23/21 08/16/24 06/03/22 09:00 History tablet (Entresto) acetaminophen 325 mg capsule 650 mg PO BID PRN pain (scale 05/26/25 07/11/25 Unknown History score 1-3) apixaban 2.5 mg tablet (Eliquis) 2.5 mg PO BID 07/01/24 08/16/24 Unknown History clopidogrel 75 mg tablet 75 mg PO DAILY 07/01/24 08/16/24 Unknown History ergocalciferol (vitamin D2) 1,250 1,250 mcg PO WEEKLY 07/01/24 08/16/24 06/25/24 History mcg (50,000 unit) capsule folic acid 1 mg tablet 1 mg PO DAILY 07/01/24 08/16/24 Unknown History guaifenesin 100 mg/5 mL oral liquid 200 mg PO Q4H PRN cough 07/01/24 08/16/24 Unknown History levothyroxine 25 mcg capsule 25 mcg PO DAILY 07/01/24 08/16/24 Unknown History metoprolol succinate 25 mg 12.5 mg PO DAILY 07/01/24 08/16/24 Unknown History tablet,extended release 24 hr mirtazapine 15 mg tablet 15 mg PO DAILY 07/01/24 08/16/24 Unknown History ondansetron 4 mg disintegrating 4 mg PO Q6H PRN nausea and vomiting 07/01/24 08/16/24 Unknown History tablet pantoprazole 40 mg tablet,delayed 40 mg PO BID 07/01/24 08/16/24 Unknown History release polyethylene glycol 3350 17 17 g PO DAILY PRN constipation 07/01/24 08/16/24 Unknown History gram/dose oral powder (Miralax) potassium chloride 20 mEq 20 meq PO DAILY 07/01/24 08/16/24 Unknown History tablet,extended release(part/cryst) (Klor-Con M) sodium chloride 0.65 % nasal spray 1 spray intranasal Q4H PRN nasal 07/01/24 08/16/24 Unknown History aerosol (Saline Nasal) congestion spironolactone 25 mg tablet 12.5 mg PO DAILY 07/01/24 08/16/24 Unknown History (Aldactone) tramadol 50 mg tablet 50 mg PO Q6H PRN pain (scale score 07/01/24 08/16/24 Unknown History 7-10) triamcinolone acetonide 0.1 % 1 applic topical BID PRN rash 07/01/24 08/16/24 Unknown History topical ointment Allergies Allergy/AdvReac Type Severity Reaction Status Date / Time No Known Allergies Allergy Verified 10/14/24 15:14 [facility] Past Medical History Medical History Presence of Amulet left atrial appendage closure device [place], September 2024 Hypertensive heart disease with heart failure Anemia, unspecified Chronic anticoagulation Atrial fibrillation Chronic hyponatremia COVID-19 vaccine series completed (~03/2020) Coronary artery disease Glaucoma Hyperlipidemia Essential hypertension Surgical History Surgical History S/P pericardiocentesis September 2024, [place] Hx of exploratory laparotomy Exploratory laparotomy, right hemicolectomy with ileocolic anstomosis 07/01/24 Ketan Milligan DO History of detached retina repair left eye History of tonsillectomy and adenoidectomy History of cardiac catheterization (~04/2019) with old prior occlusions noted, not a candidate for stent at that time per patient report Family History Family History Father Cerebral aneurysm Mother Heart disease Social History Social History Social History: He has been since 7. He and his lived in [place]. He is now residing at [place] for indeterminate amount of time. He is retired from [employer]. They have 5 biological children and adopted 2 of their grand children. He usually drinks 3-4 mixed drinks a night. Code Status: DNR/DNI ; selective treatment (POLST signed by authorized practitioner on 01/21/2024) Smoking packs per day: 1 Smoking cigarettes per day: 20.0 Years smoked: 5 Smoking pack-years: 5.00 Smoking status: Former smoker Tobacco type: cigarettes Second hand tobacco smoke exposure: No Alcohol intake: current Drinks per week: 21 Substance use: never Do You Feel Safe in your Home?: Yes Lack of Transportation: No Lack of Food: Never True Current Housing: I Have Housing Concerned About Future Housing: No Difficulty Paying Gas/Electric Bills: No Difficulty Paying for Meds: No Currently Unemployed: No Education: Decline to Answer Difficulty w/ Childcare or Family Care: No Living arrangements: assisted living Additional living arrangements comments: [facility] Gender identity (if verbalized by the patient): Male Sexual Orientation (if Verbalized by the Patient): Straight or Heterosexual Spiritual care concerns: No Exam Narrative: GENERAL: Chronically ill-appearing, well-nourished, and in no acute distress. No grimace/furrowed brow HEAD: Normocephalic, atraumatic. EYES: Non injected, non icteric ENT: Nares clear, no rhinorrhea or epistaxis. NECK: No obvious deformity. CHEST:No respiratory distress. Bilateral crackles. Nasal cannula in place. HEART: IRregularly irregular rate and rhythm. ABDOMEN: Soft, mildly distended. No rigidity or guarding. Not peritoneal. Well healed laparotomy scar along abdomen. EXTREMITIES: Normal range of motion. No lower extremity edema. SKIN: Warm, dry, no rash. NEURO: No posturing. Not alert. Not oriented. Not Answering questions. Not Following commands. Arouses to painful stimuli. Course Vital Signs Vital signs: Vital Signs Pulse Rate 105 H 10/14/24 13:56 Respiratory Rate 15 10/14/24 13:56 Blood Pressure 119/87 10/14/24 13:56 Pulse Oximetry 87 L 10/14/24 13:56 Oxygen Delivery Nasal Cannula 10/14/24 13:56 Oxygen Flow Rate 2 10/14/24 13:56 Temperature 96.4 F L 10/14/24 14:02 Pulse Rate 102 H 10/14/24 21:50 Respiratory Rate 21 H 10/14/24 21:50 Blood Pressure 94/42 L 10/14/24 21:50 Pulse Oximetry 94 10/14/24 21:40 Oxygen Delivery Non-Rebreather Mask 10/14/24 14:03 Oxygen Flow Rate 10 10/14/24 14:03 MDM - Altered Mental Status MDM Narrative Medical decision making narrative: Patient presents with report of being unresponsive since this morning. He had been having difficulty sleeping and received a Xanax for which he slept all night. He was noted to be hypoxic on room air. Nasal cannula applied. History of fluid on lungs and complicated medical history including laparotomy in June and recent Amulet atrial appendage procedure complicated by pericardial effusion s/p pericardial effusion. In the emergency department he is afebrile with vital signs that show mildly elevated heart rate and hypoxia even on NC. NRB applied, improved. Patient is DNR DNI with focus on comfort measures per family who requests spiritual care/last rites performed. They would like to proceed with a basic work up. BNP is elevated and chest x-ray as below. Small dose Lasix ordered, judicious given blood pressure of 91/66, though improved 107/70 on repeat. He has acute on chronic heart failure per review of facility documentation and is on furosemide 20mg daily per med list. ALso on Entresto. In addition, clopidogrel, ASA, and midodrine. Furosemide dose had been 40mg one time daily for 3 days starting 10/14/24 per facility documentation, unclear dose received if any this AM. Dimer mildly elevated but YEARS Algorithm : No Clinical signs of DVT: No Hemoptysis: No PE is most likely diagnosis: No D-dimer >1000ng/mL: No Result: PE Excluded; will not proceed with further work up. Normocytic anemia, stable from previous. Labs collected 10/11/24 show Na 133, ProBNP 3975, Hgb 8.0. Abd Xray 10/13/24: mild pulmonary vascular congestion, nonspecific bowel gas pattern. Patient meets sepsis criteria so lactic, CRP, and blood cultures ordered. Will empirically give antibiotics, presuming respiratory issues as primary etiology. In particular, consideration of hospital-acquired pneumonia given frequent multiple hospitalizations. Order set used. Viral swab negative. He is otherwise in rate controlled atrial fibrillation which is a known/chronic condition, not new. No IV fluids ordered given heart failure and not felt to actually be septic (given WBC, lactic, CXR, etc.) Hyponatremia, 125 (from 135 previously per our EMR). Hyperkalemia as well. Will initiate treatment (Lasix will help). Normal renal function. Not on other anticoagulation other than above (discontinued after the procedure at [facility], [place]). CRP elevated. Patient reassessed and vital signs improved but remains not alert/oriented. I had an extensive conversation with the family at bedside regarding how to proceed in terms of aggressive workup including but not limited to CT scans, further labs, etc, but, through shared decision making, they would like care coordination involved and discussion of hospice. After this is performed, it was decided that patient be evaluated by a local hospice organization. [facility] arrived. At the time of their arrival, patient is now alert. economic development director Amador notes that he and family were able to have thorough conversation. He was A&O, could name president and all are in agreement that he would like to be on hospice care. However, patient does not currently meet criteria for general inpatient under hospice. For this reason, reasonable to admit for further management such as diuresis and oxygenation with the goal of discharging tomorrow back to [facility] which is where patient would desire to be and at that time the rest of hospice care will be initiated. Consents already signed. Discussed with GABY Ha Aldridge for admission. Blood pressure is holding steady and he is saturating in 95-97% on high-flow. Will given additional 20 mg IV Lasix.. Can go to the floor if HFNC <15LPM. Had been on 15 but RT downtitrated to 10 and then 8 because patient was maintaining his saturation. He briefly becomes hypotensive after 2nd Lasix administration but improving on repeat assessments, MAP >70mmHg. However, there are then some hypotensive measurements again. 500cc IV fluids ordered but also at this point it seems patient has been missing his daily doses of midodrine which he takes 10mg q6 hours per review. This is ordered x1 dose. Differential Diagnosis Differential diagnosis: Likely altered mental status, delirium, hypoglycemia, hyponatremia, sepsis and other (Acute on heart failure; medication side effect) Medical Records Attestation: I reviewed the patient's medical records. Medical records narrative: Echo June 2024 Summary 1. The left ventricle is normal in size and systolic function. The left ventricular ejection fraction is visually estimated to be 60-65%. Paradoxical septum motion abnormality suggestive of bundle-branch block. 2. The right ventricle is poorly visualized however does appear mildly dilated with mildly reduced systolic function. 3. The valves are poorly visualized in this study however there does not appear to be any severe valvular abnormalities. Lab Data Attestation: I reviewed the patient's lab results. 10/14/24 13:53 10/14/24 13:53 Labs: Lab Results 10/14/24 10/14/24 10/14/24 Range/Units 13:51 13:53 19:39 WBC 6.2 (4.5-10.0) K/mm3 RBC 3.73 L (4.6-6.20) M/mm3 Hgb 9.2 L (14.0-18.0) g/dL Hct 33.6 L (42.0-52.0) % MCV 90.1 (80-100) fl MCH 24.7 L (26-34) pg MCHC 27.4 L (32-36) g/dl RDW 16.3 H (11.5-14.5) % Plt Count 175 (150-375) k/mm3 MPV 9.3 (7.4-10.4) fl Immature Gran % (Auto) Not Reportable Neut % (Auto) Not Reportable Lymph % (Auto) Not Reportable Roberts % (Auto) Not Reportable Eos % (Auto) Not Reportable Baso % (Auto) Not Reportable Lymph # (Auto) Not Reportable Roberts # (Auto) Not Reportable Eos # (Auto) Not Reportable Baso # (Auto) Not Reportable Abs Immat Gran (auto) Not Reportable Absolute Neuts (auto) Not Reportable Absolute Nucleated RBC Not Reportable Total Counted 100 Neutrophils % (Manual) 52 (46-73) % Band Neutrophils % 7 H (0-6) % Lymphocytes % (Manual) 23.0 (18-44) % Monocytes % (Manual) 16 H (3-9) % Eosinophils % (Manual) 2 (0-4) % Nucleated RBC % Not Reportable Abs Neuts (Manual) 3.65 (1.3-6.7) K/mm3 Abs Lymphs (Manual) 1.42 (1.1-4.5) K/mm3 Abs Monocytes (Manual) 0.99 H (0.1-0.90) K/mm3 Absolute Eos (Manual) 0.12 (0.02-0.50) K/mm3 Platelet Estimate Adequate (Adequate) Hypochromasia 1+ Anisocytosis 3+ Schistocytes None seen D-Dimer 0.83 H (<0.48) ug/mL Sodium 125 L (137-145) mmol/L Potassium 5.7 H (3.4-5.0) mmol/L Chloride 92 L (98-107) mmol/L Carbon Dioxide 28 (22-30) mmol/L Anion Gap 5 (4-12) mmol/L BUN 14 (9-20) mg/dL Creatinine 0.90 (0.7-1.3) mg/dL Estim Creat Clear Calc 66 ml/min Estimated GFR > 60 (59 - ) Glucose 102 (65-110) mg/dL POC Capillary Glucose 94 (65-105) mg/dl Lactic Acid 1.6 (0.7-2.0) mmol/L Calcium 9.0 (8.4-10.2) mg/dL Magnesium 2.0 (1.6-2.3) mg/dL Total Bilirubin 1.1 (0.2-1.3) mg/dL AST 36 (17-59) U/L ALT 15 (6-50) U/L Alkaline Phosphatase 84 (38-126) U/L Troponin I < 0.012 (0.000-0.034) ng/mL C-Reactive Protein 5.4 H (<1.0) mg/dL NT-Pro-B Natriuret Pep 6940 H (19.9-100) pg/mL Total Protein 7.2 (6.3-8.2) g/dL Albumin 4.4 (3.5-5.1) g/dL Lipase 24 (23-300) U/L Procalcitonin 0.1 ng/mL Influenza A (RT-PCR) Negative (Negative) Influenza B (RT-PCR) Negative (Negative) RSV (RT-PCR) Negative (Negative) SARS-CoV-2 RNA (RT-PCR) Negative (Negative) Imaging Data Radiologist's impression: Impressions Chest X-Ray 10/14/24 14:35 IMPRESSION: 1. Pleural effusions with bibasilar atelectasis and/or airspace disease, left lung worse. ECG Data EKG #1: Attestation: I personally reviewed and interpreted this ECG as follows: ECG completion date: 10/14/24 ECG completion time: 13:57 Interpretation: Atrial fibrillation at a rate of 98 beats per minute. QRS 112. QT sleepy 465, QT 363. Good R-wave progression across the precordial leads. Low QRS voltage in precordial leads though likely due to body habitus. RBBB given QRS greater [id number]; RSR' M-shaped pattern in V1-V3; wide, slurred S wave in lateral leads (I, aVL, V5-6) Discharge Plan Discharge Clinical Impression: Hypoxia, Normocytic anemia, Mental status, decreased, Hyponatremia, Acute on chronic heart failure, Hyperkalemia, CRP elevated Patient Disposition: Still a Patient Condition: Serious
--- OUTSIDE RECORDS SUMMARY | 2024-10-14 13:58 | XMS_ITS | Clinical Summary ---
Author Organization [facility] [address] [facility] [place] [address] Care Team Providers Care Powersaw Supervisor Name Role Phone Wilbert Bucio MD Unavailable [phone] Gabriel Hand MD Unavailable [phone] Heron Wiggins MD Unavailable [phone] Jw Pascual MD Unavailable [phone] Corazon Mckinney DO Primary Care Provider Allergies No known active allergies Medications latanoprost (XALATAN) 0.005 % ophthalmic solutionIndication s:ocular hypertension latanoprost 0.005 % eye drops INSTILL 1 DROP INTO LEFT EYE AT BEDTIME 03/05/19 19 Active fluticasone propionate (FLONASE) 50 mcg/actuation nasal sprayIndications:A llergic Rhinitis Administer 1 spray into each nostril daily Active ergocalciferol (VITAMIN D) 50,000 unit capsule Take 1 capsule (50,000 Units total) by mouth once a week 02/05/20 24 Active mirtazapine (REMERON) 15 mg tablet 02/05/20 24 Active sacubitriL-valsart an (ENTRESTO) 24-26 mg tabletIndications: chronic heart failure Take 0.5 tablets by mouth 2 (two) times a day Active clopidogreL (PLAVIX) 75 mg tablet Take 1 tablet (75 mg total) by mouth daily 30 tablet 11 02/28/19 25 026 Active diphenhydrAMINE-ac etaminophen (TYLENOL PM) 25-500 mg tablet Take 1 tablet by mouth Active traMADoL (ULTRAM) 50 mg tablet Take 1 tablet (50 mg total) by mouth every 8 (eight) hours as needed for pain 15 tablet 06/25/19 25 Active acetaminophen (TYLENOL) 325 mg tablet Take 1-2 tabs by mouth twice a day as needed. Active guaiFENesin (ROBITUSSIN) syrup 100 mg/5 mL Take by mouth 04/24/19 25 Active ondansetron ODT (ZOFRAN-ODT) [address] 1 tablet every 6 hours by translingual route as needed. 06/23/19 25 Active potassium chloride ER 20 mEq CR tablet Take 1 tablet twice a day by oral route. 07/13/19 25 Active sodium chloride (OCEAN) 0.65 % nasal spray Take 1 spray every 4 hours by nasal route as needed. 03/24/19 25 Active traZODone (DESYREL) 50 mg tablet Take 1 tablet every day by oral route at bedtime. 07/11/19 25 Active triamcinolone (KENALOG) 0.1 % cream Apply 1 application twice a day by topical route as needed. 05/29/19 25 Active magnesium oxide (MAG-OX) 400 mg (241.3 mg elemental magnesium) tablet Take 1 tablet (400 mg total) by mouth daily 07/14/19 25 Active calcium carbonate-vitamin D3 (CALTRATE 600 + D) 1500 mg (600 mg elemental) -400 units per tablet Take by mouth 2 (two) times a day 07/13/19 25 Active dextromethorphan-g uaiFENesin (TUSSIN-DM) liquid 10-100 mg/5 mL Take 5 mL by mouth as needed Active levothyroxine (SYNTHROID) 25 mcg tablet Take 1 tablet (25 mcg total) by mouth custom clothier before breakfast Active atorvastatin (LIPITOR) 20 mg tablet Take 1 tablet (20 mg total) by mouth daily Active folic acid (FOLVITE) 1 mg tablet Take 1 tablet (1 mg total) by mouth daily Active furosemide (LASIX) 20 mg tablet Take 1 tablet (20 mg total) by mouth 2 (two) times a day Active polyethylene glycol (MIRALAX) 17 gram packetIndications: constipation Take 1 packet (17 g total) by mouth daily Active pantoprazole DR (PROTONIX) 40 mg EC tablet Take 1 tablet (40 mg total) by mouth daily Active nystatin (Nystop) powder Apply topically 08/28/19 25 Active iw-zrk-EH-vit I-huijpe-kzcuogy (PreserVision AREDS 2 Plus MV) 200 mcg-15 mcg- 5 mg-1 mg capsule Take 1 capsule twice a day by oral route. Active aspirin 81 mg chewable tabletIndications: coronary artery disease Take 1 tablet (81 mg total) by mouth daily 90 tablet 3 10/07/19 25 026 Active colchicine (COLCRYS) 0.6 mg tablet Take 1 tablet (0.6 mg total) by mouth 2 (two) times a day 60 tablet 11 10/07/19 25 026 Active midodrine (PROAMATINE) 10 mg tabletIndications: Symptomatic Orthostatic Hypotension Take 1 tablet (10 mg total) by mouth every 6 (six) hours 120 tablet 10/07/19 25 025 Active atorvastatin (LIPITOR) 20 mg tabletIndications: hyperlipidemia Take 1 tablet (20 mg total) by mouth daily 90 tablet 3 05/09/19 24 025 Discontin ued(Dupli remigio order) metoprolol XL (Toprol XL) 25 mg extended release tabletIndications: hypertension Take 0.5 tablets (12.5 mg total) by mouth daily 45 tablet 3 05/24/19 24 025 Discontin ued(Dupli remigio order) furosemide (LASIX) 20 mg tablet Take 1 tablet (20 mg total) by mouth daily 30 tablet 1 01/21/20 24 025 Discontin ued(Dupli remigio order) folic acid (FOLVITE) 1 mg tablet Take 1 tablet (1 mg total) by mouth daily 30 tablet 1 01/21/20 24 025 Discontin ued(Dupli remigio order) levothyroxine (SYNTHROID) 25 mcg tablet Take 1 tablet (25 mcg total) by mouth custom clothier before breakfast 30 tablet 1 01/21/20 24 025 Discontin ued(Dupli remigio order) polyethylene glycol (MIRALAX) 17 gram/dose bulk powderIndications: constipation Take 17 g by mouth daily 510 g 01/20/20 24 025 Discontin ued(Dupli remigio order) spironolactone (ALDACTONE) 25 mg tablet Take 0.5 tablets (12.5 mg total) by mouth daily 15 tablet 1 02/18/19 25 025 Discontin ued(Dupli remigio order) pantoprazole DR (PROTONIX) 40 mg EC tabletIndications: GI Bleed Take 1 tablet (40 mg total) by mouth 2 (two) times a day 06/25/19 25 025 Discontin ued(Dupli remigio order) apixaban (ELIQUIS) 5 mg tablet Take 1 tablet (5 mg total) by mouth 2 (two) times a day 60 tablet 6 08/06/19 25 025 Discontin ued(Stop Taking at Discharge ) metoprolol XL (TOPROL-XL) 25 mg extended release tablet Take 0.5 tablets (12.5 mg total) by mouth daily 025 Discontin ued(Stop Taking at Discharge ) spironolactone (ALDACTONE) 25 mg tablet Take 0.5 tablets (12.5 mg total) by mouth daily 025 Discontin ued(Stop Taking at Discharge ) Hospital, Clinic, or Other Facility Administered Medication Ordered Dose Route Frequency Start Date End Date Status hyaluronate sodium, stabilized (DUROLANE) 60 mg/3 mL 60 mgIndications:Primar y osteoarthritis of left knee 60 mg intra-artic One-Time Injection 09/17/2024 5 Ended lidocaine (XYLOCAINE) 20 mg/mL (2 %) injection 3 mLIndications:Admini stration of Local Anesthesia 3 mL One-Time Injection 09/17/2024 5 Ended methylPREDNISolone acetate (DEPO-medrol) injection 80 mgIndications:Left rotator cuff tear arthropathy 80 mg intra-artic One-Time Injection 09/17/2024 5 Ended Active Problems Problem Noted Date Diagnosed Date Cardiac tamponade 10/05/2024 Pericardial effusion 10/04/2024 Septal defect, atrial 10/02/2024 Atrial fibrillation, persistent 09/09/2024 Contraindication to anticoagulation therapy 05/2024 Gastrointestinal hemorrhage 08/21/2024 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 UGIB (upper gastrointestinal bleed) 06/23/2024 Esophagitis 06/23/2024 Coffee ground emesis 06/23/2024 Nausea and vomiting 06/23/2024 Abdominal bloating 06/23/2024 Athscl [place] art of left leg w ulcer of heel an d midfoot 02/19/2024 Chronic venous stasis dermatitis of both lower e xtremities 02/19/2024 Frequent falls 01/11/2024 Iron deficiency anemia 01/11/2024 Stiffness of unspecified shoulder, not elsewhere classified 09/07/2023 Unsteadiness on feet 09/07/2023 Other fatigue 09/07/2023 Weakness 09/07/2023 Chronic atrial fibrillation 02/13/2023 Encounter for Medicare annual wellness exam 02/08 Assessment & Plan (03/09/2022 12:48 PM HAND I CUTTER): A(n) yearly Medicare Annual Wellness Visit has been performed today. Dilan Burr is up to date on screening [...] WCC? Assessment & Plan (02/25/2022 2:26 PM HAND I CUTTER): Silvadene to wound daily after cleansing (OTC wound cleanser). Change dressings daily Keflex x 1 week Don't apply the silvadene until steris slough (likely by Monday) Start antibiotic today Xray today Muscle weakness (generalized) 10/05/2021 Hospital discharge follow-up 09/30/2021 Assessment & Plan (10/01/2021 5:31 PM CDT): I have reviewed the available outside hospital record, medications, and relevant testing from Dilan Burr's recent admission. We will attempt to [...] resolves Assessment & Plan (02/10/2021 12:15 PM HAND I CUTTER): Monitor BP- 1-2 times daily, get me the numbers over the next week. If above 160/90, call. Will continue lisinopril at 30 mg dailly Go to daily furosemide Labs reviewed. Kidney function looks fine. Liver function is acceptable. We will watch the bilirubin, but that is only slightly elevated Assessment & Plan (01/10/2021 11:00 AM HAND I CUTTER): BP journal requested over the next week, [...] Encounters Date Type Department Care Team Description 10/03/19 10:10 AM CDT Anesthesia Event [facility] Cardiac Catheterization Lab [address] [place] [address] Renate Barrera DO Stanley, Jacob David, AA 10/03/19 9:00 AM CDT - 10/03/19 10:30 AM CDT Surgery [facility] Cardiac Catheterization Lab [address] [place], [place] [id number] Bishnu Hwang MD PERC LEIGH CLOSE W/IMPLANT [id number] 10/03/19 6:19 AM CDT - 10/07/19 3:50 PM CDT Hospital Encounter [address] [address] Bishnu Hwang MD Niziolek, Kyle C., MD Cardiac tamponade (Primary Dx); Atrial fibrillation, persistent (HCC); Contraindication to anticoagulation therapy; Shock (HCC); Pericardial effusion Discharge Disposition: Discharge to [facility] 09/26/19 [facility] Lubrication Worker at [address] [place] [phone] Barbra Mendoza NP 09/25/19 9:45 AM CDT Pre-Admission Testing [facility] Pre Anesthesia Testing [address] [place] [phone] Encounter for preadmission testing (Primary Dx); Other specified hemorrhagic conditions 09/20/19 1:45 PM CDT - 09/20/19 11:59 PM CDT Hospital Encounter [facility] Imaging and Radiology [address] [place] [address] Atrial fibrillation, persistent (HCC); Pre-procedural examination Discharge Disposition: Discharge to home or self care 09/18/19 10:15 AM CDT Office Visit [facility] Orthopedic and Sports Medicine [address] [place] [phone] Macey Cota PA Primary osteoarthritis of left knee (Primary Dx); Left rotator cuff tear arthropathy 09/14/19 11:16 AM CDT Anesthesia Event [address] [address] Harris Hernandez MD 09/14/19 11:00 AM CDT - 09/14/19 11:30 AM CDT Surgery [address] [address] Shahram Hathaway MD ESOPHAGOGASTRODUODENOSCOPY 09/14/19 9:55 AM CDT - 09/14/19 12:20 PM CDT Hospital Encounter [facility] [address] [place] [address] Shahram Hathaway MD Discharge Disposition: Discharge to home or self care 09/10/19 [facility] Cardiac Catheterization Lab [address] [place] [address] Bishnu Hwang MD Atrial fibrillation, persistent (HCC) (Primary Dx); Contraindication to anticoagulation therapy; Pre-procedure lab exam; Pre-procedural examination 08/28/19 10:30 AM CDT Office Visit [facility]rication Worker at [address] [place] [address] Bishnu Hwang MD Chronic atrial fibrillation (HCC) (Primary Dx); UGIB (upper gastrointestinal bleed); Chronic venous stasis dermatitis of both lower extremities [I87.2]; Paroxysmal atrial fibrillation (HCC) 08/24/19 Telephone [facility] Orthopedics and Sports Medicine [address] [place] [address] [address] [place] [address] Macey Cota PA 08/22/19 Telephone [facility] Gastroenterology at [address] [place] [address] Martha Umanzor 08/21/19 25 Telephone [facility] Worker at [address] [place] [phone] Shailesh Griffin MA 08/06/19 11:00 AM CDT Office Visit [facility] Worker at [address] [place] [phone] Bishnu Hwang MD Chronic atrial fibrillation (HCC) (Primary Dx); Athscl [place] art of left leg w ulcer of heel and midfoot (HCC); Chronic venous stasis dermatitis of both lower extremities [I87.2]; Other thrombophilia (HCC) from Last 3 Months Immunizations Immunization [...] RETINAL DETACHMENT SURGERY 02/06/2017 - 02/05/2018 Left COLECTOMY 06/06/2024 - 07/06/2024 [facility] HERNIA REPAIR as a kid TONSILLECTOMY AND ADENOIDECTOMY IMPLANTABLE CARDIAC DEVICE 10/02/2024 N/A Procedure: PERC LEIGH CLOSE W/IMPLANT [id number]; Surgeon: Bishnu Hwang MD; Location: CARDIAC STRATEGIC INTELLIGENCE OFFICER; Service: Cardiovascular; Laterality: N/A; Medical devices from this surgery are in the Medical Devices section. Medical History Medical History Date Comments Hyperlipidemia 10/31/2016 Primary hypertension 08/08/2016 Arteriosclerosis of coronary artery 08/28/2018 Obesity 03/05/2018 Benign hypertensive renal disease 08/08/2016 Low sodium levels Atrial fibrillation (HCC) Chronic venous stasis dermatitis of both lower e xtremities Other thrombophilia Hyponatremia Retinal detachment UGIB (upper gastrointestinal bleed) Esophagitis Coffee ground emesis Nausea & vomiting Gastrointestinal hemorrhage CKD (chronic kidney disease) stage 2, GFR 60-89 ml/min Persistent proteinuria LLOYD (generalized anxiety disorder) Arthritis Lymphedema Unsteady gait GERD (gastroesophageal reflux disease) Frequent falls Family History Relation Name Status Comments Father Mother Social History Tobacco Use Types Packs/Day Years Used Date Smoking Tobacco: Former Cigarettes Q uit: 09/24/1964 Tobacco Cessation:Counseling Given: Not Answered Alcohol Use Standard Drinks/Week Comments Never 0 (1 standard drink = 0.6 oz pur e alcohol) OASIS D0700: Social Isolation Answer Da te [...] materials from doctor or pharmacy Never 12/14/2023 Social Connection and Isolation Panel Answer Date Recorded In a typical week, how many times do you talk on the phone with family, friends, or neighbors? More than three times a week 06/24/2024 How often do you get togethe r with friends or relatives? More than three times a week 06/24/2024 How often do you attend chur ch or spiritism services? Never 06/24/2024 Do you belong to any clubs o r organizations such as scientology groups, unions, fraternal or athletic groups, or school groups? No 06/24/2024 How often do you attend meet ings of the clubs or organizations you belong to? Never 06/24/2024 Are you , , di vorced, , never , or living with a partner? 06/24/2024 Overall Financial Resource Strain (CARDIA) Answe r Date Recorded How hard is it for you to pa y for the very basics like food, housing, medical care, and heating? Not hard at all 06/24/2024 PHQ-2 Answer Date Recorded PHQ-2 Total Score (If total score is 3 or more points, staff should administer the PHQ-9) 2 02/13/2023 PRAPARE - Transportation Answer Date Re corded [...] any time in the past 12 m [facility], were you homeless or living in a nursing home (including now)? No 06/24/2024 Social Connection and Isolation Panel Answer Date Recorded In a typical week, how many times do you talk on the phone with family, friends, or neighbors? More than three times a week 10/03/2024 How often do you get togethe r with friends or relatives? More than three times a week 10/03/2024 How often do you attend chur or spiritism services? Patient declined 10/03/2024 Do you belong to any clubs o r organizations such as scientology groups, unions, fraternal or athletic groups, or school groups? Patient declined 10/03/2024 How often do you attend meet ings of the clubs or organizations you belong to? Patient declined 10/03/2024 Are you , , di vorced, , never , or living with a partner? 10/03/2024 AUDIT-C Answer Date Recorded Q1: How often do you have a drink containing alcohol? Never 09/24/2024 Q2: How many drinks containi ng alcohol do you have on a typical day when you are drinking? Patient does not drink Q3: How often do you have si x or more drinks on one occasion? Never 09/24/2024 Overall Financial Resource Strain (CARDIA) Answe r Date Recorded How hard is it for you to pa y for the very basics like food, housing, medical care, and heating? Not hard at all 10/03/2024 Hunger Vital Sign Answer Date Recorded Within the past 12 months, y ou worried that your food would run out before you got the money to buy more. Never true 10/04/19 25 Within the past 12 months, t he food you bought just didn't last and you didn't have money to get more. Never true 10/03/2024 PRAPARE - Transportation Answer Date Re corded In the past 12 months, has l ack of transportation kept you from medical appointments or from getting medications? No 09/07 In the past 12 months, has l ack of transportation kept you from meetings, work, or from getting things needed for daily living? No 10/03/2024 Housing Stability Vital Sign Answer Brooks e Recorded In the last 12 months, was t here a time when you were not able to pay the mortgage or rent on time? No 10/03/2024 In the past 12 months, how m any times have you moved where you were living? 0 10/03/2024 At any time in the past 12 m onths, were you homeless or living in a nursing home (including now)? No 10/03/2024 [facility] Utilities Answer Date Recorded In the past 12 months has th e electric, gas, oil, or water company threatened to shut off services in your home? No 10/03/2024 Personal Safety Answer Date Recorded Have you ever been in or are you currently in a harmful physical or emotional relationship or is someone making you feel afraid or unsafe? Denies 10/02/2024 Sex and Gender Information Value Date Recorded Sex Assigned at Not on file Legal Sex Male 5:06 AM HAND I CUTTER Gender Identity Male 09/02/2021 11:12 AM CDT Sexual Orientation Not on file Obstetrics History Last Filed Vital Signs Vital Sign Reading Time Taken Comments Blood Pressure 138/84 10/06/2024 12:10 PM CDT Pulse 92 10/06/2024 12:10 PM CDT Temperature 37.1 C (98.8 F) 10/06/2024 8:09 AM CDT Respiratory Rate 19 10/06/2024 8:09 AM CDT Oxygen Saturation 95% 10/06/2024 12: 10 PM CDT Inhaled Oxygen Concentration - - Weight 108.7 kg (239 lb 10.2 oz) 10/05/2024 6:00 AM CDT Height 180.3 cm (5' 10.98) 10/04/2024 1:31 PM C DT Body Mass Index 33.44 10/04/2024 1:31 PM CDT Plan of Treatment Health Maintenance Due Date Last Done Comments Hepatitis B Screening 1953 Zoster Vaccine (2 of 3) 04/19/2017 02/22/2017, 08/12 Well Visit 65+ 03/07/2023 03/07/2022 Depression Screening 02/14/2024 02/13/2023, 11/24/2022, 11/24/2022, Additional history exists Covid-19 Vaccine ( season) 2024 08/01/2022, 11/10/2021, 11/10/2021, Additional history exists Influenza Vaccine (#1) 2024 , 11/19/2020, 11/15/2017, Additional history exists Fall Risk Assessment 10/06/2025 10/06/2024, 02/13/2023, 11/24/2022, Additional history exists DTaP/Tdap/Td Vaccine (3 - Td or Tdap) 05/04/2030 05/04/2020, 01/12/2019 Pneumococcal vaccine 65+ Completed 019, 06/06/2018, 02/27/2017 Medical Devices Implanted Type Area Director Of Patient Safety Device Identifier Shelf Expiration Date Model / Serial / Lot GreenIQ Ross Stent Coronary Drug Eluting Rapid Exchange Synergy Megatron 4.99n23kl Greenleaf Chromium [id number] - [id number] Implanted:Qty: 1 on 02/29/2024 by Bishnu Hwang MD at [facility] [employer] Ross 12/11/2024 [id number] / / [id number] TerAppLearn Angio-Seal Vip 6fr Closere Device [id number] - [id number] Implanted:Qty: 1 on 02/29/2024 by Bishnu Hwang MD at [facility] [employer] 06/19/2024 [id number] / / [id number] [employer] Vascular Occluder Cvasc Leigh Flexible Braided Amplatzer Amulet 25mm Nitinol [id number] - [id number] Implanted:Qty: 1 on 10/02/2024 by Bishnu Hwang MD at [facility] V[facility] 03/08/2029 [id number] / / [id number] Procedures Procedure Name Priority Date/Time Associated Diagnosis Comments EGFR Routine 10/06/2024 6:34 AM CDT CBC WITHOUT DIFFERENTIAL Routine 025 6:34 AM CDT BASIC METABOLIC PANEL Routine 10/06/2024 6:34 AM CDT CRITICAL CARE Routine 10/05/2024 2:39 PM CDT Pericardial effusion TRANSTHORACIC ECHO (TTE) LIMITED/FOLLOW UP W LTD DOPPLER/CF WO CONTRAST Routine 10/05/2024 10:54 AM CDT EGFR Routine 10/05/2024 4:01 AM CDT CBC WITHOUT DIFFERENTIAL Routine 025 4:01 AM CDT BASIC METABOLIC PANEL Routine 10/05/2024 4:01 AM CDT CRITICAL CARE Routine 10/04/2024 12:22 PM CDT Cardiac tamponade Shock (HCC) Pericardial effusion TRANSTHORACIC ECHO (TTE) LIMITED/FOLLOW UP WO DOPPLER/CF WO CONTRAST Routine 10/04/2024 7:40 AM CDT XR CHEST 1 VIEW Routine 10/04/2024 6:28 AM CDT CRITICAL CARE Routine 10/04/2024 5:16 AM CDT Pericardial effusion EGFR Routine 10/04/2024 3:37 AM CDT CBC WITHOUT DIFFERENTIAL Routine 025 3:37 AM CDT BASIC METABOLIC PANEL Routine 10/04/2024 3:37 AM CDT URINALYSIS AND REFLEX TO MICROSCOPIC Routine 10/03/2024 8:45 PM CDT EGFR STAT 10/03/2024 8:29 PM CDT DIFFERENTIAL AUTO STAT 10/03/2024 8:29 PM CDT PHOSPHORUS STAT 10/03/2024 8:29 PM CDT MAGNESIUM STAT 10/03/2024 8:29 PM CDT CBC WITH AUTO DIFFERENTIAL STAT 10/03 8:29 PM CDT BASIC METABOLIC PANEL STAT 10/03/2024 8:29 PM CDT BLOOD GAS, ARTERIAL Routine 10/03/2024 8:29 PM CDT POC BLOOD GAS AND CHEMISTRIE S, ARTERIAL Routine 10/03/2024 7:35 PM CDT CRITICAL CARE Routine 10/03/2024 12:29 PM CDT Cardiac tamponade Shock (HCC) TROPONIN T HIGH-SENSITIVITY 6-HOUR Timed 10/03/2024 8:10 AM CDT ECG 12-LEAD Routine 10/03/2024 7:58 AM CDT TRANSTHORACIC ECHO (TTE) LIMITED/FOLLOW UP W LTD DOPPLER/CF WO CONTRAST Routine 10/03/2024 7:23 AM CDT CELL DIFFERENTIAL, BODY FLUID Routine 6:22 AM CDT CELL COUNT W/REFLEX DIFFERENTIAL, BODY FLUID Routine 10/03/2024 6:22 AM CDT TROPONIN T HIGH-SENSITIVITY 4-HR Timed 10/03/2024 6:22 AM CDT DIFFERENTIAL AUTO Routine 10/03/2024 4:36 AM CDT APTT Routine 10/03/2024 4:36 AM CDT PROTIME-INR Routine 10/03/2024 4:36 AM CDT CBC WITH AUTO DIFFERENTIAL Routine 10/03 4:36 AM CDT AEROBIC AND ANAEROBIC CULTUR E AND GRAM STAIN Routine 10/03/2024 4:36 AM CDT EGFR Routine 10/03/2024 4:11 AM CDT TROPONIN T HIGH-SENSITIVITY 2-HOUR Timed 10/03/2024 4:11 AM CDT LACTATE Routine 10/03/2024 4:11 AM CDT BLOOD GAS, ARTERIAL Routine 10/03/2024 4:11 AM CDT PRO B-TYPE NATRIURETIC PEPTIDE Routine 0 10/03/2024 4:11 AM CDT COMPREHENSIVE METABOLIC PANEL Routine 4:11 AM CDT MAGNESIUM Routine 10/03/2024 4:11 AM CDT MI ARTL CATHJ/CANNULJ MNTR/TRANSFUSION SPX PRQ Routine 10/03/2024 2:55 AM CDT Cardiac tamponade CRITICAL CARE Routine 10/03/2024 2:34 AM CDT Cardiac tamponade POC BLOOD GAS AND CHEMISTRIE S, ARTERIAL Routine 10/03/2024 2:34 AM CDT TROPONIN T HIGH-SENSITIVITY SERIES (BASELINE, 2HR, 4HR, 6HR) STAT 10/03/2024 2:24 AM CDT ECG 12-LEAD Routine 10/03/2024 2:13 AM CDT XR CHEST 1 VIEW Critical/Li fe-Threaten ing 10/03/2024 1:04 AM CDT MI INSJ NON-TUNNELED CENTRAL VENOUS CATH AGE 5 YR/> Routine 10/03/2024 1:00 AM CDT Cardiac tamponade EGFR STAT 10/03/2024 12:53 AM CDT DIFFERENTIAL AUTO STAT 10/03/2024 12:53 AM CDT BLOOD GAS, ARTERIAL STAT 10/03/2024 12:53 AM CDT FIBRINOGEN STAT 10/03/2024 12:53 AM CDT TYPE AND SCREEN STAT 10/03/2024 12:53 AM CDT PROTIME-INR STAT 10/03/2024 12:53 AM CDT LACTATE STAT 10/03/2024 12:53 AM CDT PHOSPHORUS STAT 10/03/2024 12:53 AM CDT MAGNESIUM STAT 10/03/2024 12:53 AM CDT COMPREHENSIVE METABOLIC PANEL STAT 12:53 AM CDT CBC WITH AUTO DIFFERENTIAL STAT 10/03 12:53 AM CDT PREPARE RBC STAT 10/03/2024 12:42 AM CDT POC BLOOD GAS AND CHEMISTRIE S, ARTERIAL Routine 10/03/2024 12:38 AM CDT POCT GLUCOSE DEVICE Routine 10/03/2024 12:07 AM CDT ECG 12-LEAD STAT 10/03/2024 12:02 AM CDT XR CHEST 1 VIEW Routine 10/02/2024 2:36 PM CDT TRANSESOPHAGEAL ECHO (CJ) W DOPPLER/CF WO CONTRAST Routine 10/02/2024 11:03 AM CDT PERC LEIGH CLOSURE W/IMPLANT (WATCHMAN) [id number] Routine 10/02/2024 10:59 AM CDT Atrial fibrillation, persistent (HCC) Contraindication to anticoagulation therapy POCT ACTIVATED CLOTTING TIME , HIGH RANGE Routine 10/02/2024 10:51 AM CDT MI AN ELECTIVE ENDOTRACHEAL AIRWAY Routine 10/02/2024 10:24 AM CDT POTASSIUM, WHOLE BLOOD STAT 7:50 AM CDT B CHECK SAMPLE STAT 10/02/2024 7:38 AM CDT ECG 12-LEAD Routine 09/24/2024 10:59 AM CDT Encounter for preadmission testing EGFR Routine 09/24/2024 10:31 AM CDT Encounter for preadmission testing DIFFERENTIAL AUTO Routine 09/24/2024 10:31 AM CDT Encounter for preadmission testing TYPE AND SCREEN Routine 09/24/2024 10:31 AM CDT Encounter for preadmission testing PROTIME-INR Routine 09/24/2024 10:31 AM CDT Encounter for preadmission testing Other specified hemorrhagic conditions COMPREHENSIVE METABOLIC PANEL Routine 10:31 AM CDT Encounter for preadmission testing CBC WITH AUTO DIFFERENTIAL Routine 09/24 10:31 AM CDT Encounter for preadmission testing APTT Routine 09/24/2024 10:31 AM CDT Encounter for preadmission testing Other specified hemorrhagic conditions CT HEART MORPHOLOGY W CONTRAST Schedule Routine, Read Routine (OP Routine) 09/19/2024 2:17 PM CDT Atrial fibrillation, persistent (HCC) Pre-procedural examination MI ARTHROCENTESIS ASPIR&/INJ MAJOR JT/BURSA W/O US Routine 09/17/2024 10:15 AM CDT Left rotator cuff tear arthropathy MI ARTHROCENTESIS ASPIR&/INJ MAJOR JT/BURSA W/O US Routine 09/17/2024 10:15 AM CDT Primary osteoarthritis of left knee ESOPHAGOGASTRODUODENOSCOPY 09/13 11:09 AM CDT Gastrointestinal hemorrhage, unspecified gastrointestinal hemorrhage type EGD 09/13/2024 9:57 AM CDT from Last 3 Months Results * eGFR (10/06/2024 6:34 AM CDT) eGFR 88 >=60 mL/min/1. 73 m2 Comment: Interpretive Data [...] interpretive data was last reviewed 2020. Blood 10/06/2024 6:34 AM CDT 10/06/2024 7:38 AM CDT Kamar Stevens MD LAB BLOOD ORDERABLES Fin al Result Performing Organization Address City/[facility]/ZIP Co de Phone Number MARLENE FOLWER [address] [place] [address] * (ABNORMAL) CBC without differential (10/06/2024 6:34 AM CDT) WBC 5.19 3.80 - 9.90 K/cumm Hgb 8.5(L) 13.0 - 17.5 g/dL [facility] Hct 29.1(L) 38.9 - 50.3 % [facility] Plt 128(L) 150 - 400 K/cumm [facility] MPV 9.8 9.1 - 12.3 fL [facility] RBC 3.32(L) 4.30 - 5.80 M/cumm [facility] MCV 87.7 81.3 - 96.4 fL [facility] MCH 25.6(L) 27.1 - 33.3 pg [facility] MCHC 29.2(L) 32.3 - 35.7 g/dL [facility] RDW CV 15.1(H) 11.1 - 14.9 % [facility] RDW SD 48.4(H) 35.7 - 48.1 fL [facility] NRBC abs 0.00 0.00 - 0.01 K/cumm [facility] Blood 10/06/2024 6:34 AM CDT 10/06/2024 7:39 AM CDT Kamar Stevens MD LAB BLOOD ORDERABLES Fin al Result MARLENE FOWLER [address] [place] [address] * (ABNORMAL) Basic metabolic panel (10/06/2024 6:34 AM CDT) Pathologist [facility] Sodium 134(L) 135 - 145 mmol/L Potassium, pl 4.3 3.3 - 4.9 mmol/L [facility] Chloride 99 97 - 110 mmol/L [facility] CO2 22 22 - 32 mmol/L [facility] Anion gap 13 2 - 15 mmol/L [facility] BUN 20 6 - 25 mg/dL [facility] Creatinine 0.72(L) 0.80 - 1.30 mg/dL [facility] Glucose 104 70 - 199 mg/dL [facility] Comment: Interpretive Data Fasting glucose >/= 126 [...] interpretive data was last revised 2022. Calcium 8.9 8.5 - 10.3 mg/dL [facility] Blood 10/06/2024 6:34 AM CDT 10/06/2024 7:38 AM CDT us Kamar Stevens MD LAB BLOOD ORDERABLES Fin al Result [facility] [address] [place] [address] * Critical Care (10/05/2024 2:39 PM CDT) Narrative Juan Chisholm MD - 10/05/2024 2:39 PM CDT Juan Chsiholm MD 10/05/2024 2:43 PM Critical Care Performed by: Juan Chisholm MD Authorized by: Juan Chisholm MD CRITICAL CARE: Team: MITZY Shift: AM Level of Billing: Subsequent Hospital Visit Level 3 My time spent with this patient was 25 minutes: Critical Provider Statement: I have seen and examined the patient on this day of service. I have reviewed and confirmed the history, physical exam, laboratory, and radiographic data as documented in the ICU note. I have reviewed and discussed my treatment plan with the patient's team and other medical/splunk consultant staff. This time was in addition to and separate from care provided by other practitioners on this day of service. us Juan Chisholm MD IN CLINIC/BEDSIDE ORDERABLE S Final Result * TRANSTHORACIC ECHO (TTE) LIMITED/FOLLOW UP W LTD DOPPLER/CF WO CONTRAST (10/05/2024 10:54 AM CDT) EF Mod BP 60 % CONS SCIMAGE Anatomical Region Laterality Modality Ultrasound 10/05/2024 10:2 2 AM CDT Narrative 10/05/2024 12:47 [place] [address] Limited Echocardiogram Report Patient Name: DILAN BURR V : 1935 Study Date: 10/05/2024 10:22:45 AM Sex: M Tech: RF Location: [id number] Ref Provider: BISHNU HWANG Height(Cm): 180 BSA: 2.33 Weight(Kg): 109 Heart Rate: 85 BP: 103 / 54 Quality: Good Order Provider: BISHNU HWANG PROCEDURES: Echocardiographic Report: Limited transthoracic echocardiogram with 2D and color Doppler. INDICATIONS: Pericardial Effusion. MEASUREMENTS: 2D/MM Value Range EF Mod BP 60 % [ 52 - 72 ] 2D/MM Value Range - FINDINGS: Atrial Septum: Normal atrial septum. Aorta: Normal aortic root. Sinus of Valsalva is normal. Sinotubular junction is normal. Ascending aorta is normal. Aortic arch is normal. Descending aorta is normal. Left Ventricle: Mild concentric left ventricular hypertrophy. Ejection fraction is measured at 60 %. Left Atrium: The left atrium is normal in size. Normal left atrial pressure based on pulmonary vein inflow. Right Ventricle: Normal right ventricular size. Normal right ventricular systolic function. Right Atrium: The right atrium is normal in size. Aortic Valve: Normal structure of the aortic valve. Mitral Valve: Normal structure of the mitral valve. Pulmonic Valve: Normal structure of the pulmonic valve. No pulmonic stenosis. Tricuspid Valve: Normal structure of the tricuspid valve. Normal right ventricular systolic pressure. Pericardium: Normal pericardium with no significant pericardial effusion. CONCLUSIONS: Mild concentric left ventricular hypertrophy. Ejection fraction is measured at 60 %. The left atrium shows presence of amulet device. Normal pericardium with no significant pericardial effusion. Electronically Signed By: Brittany Lopez MD 10/05/2024 12:47:08 PM CDT Procedure Note Alvaro Lopez MD - 10/05/2024 [place] [address] Limited Echocardiogram Report Patient Name: DILAN BURR V : 1935 Study Date: 10/05/2024 10:22:45 AM Sex: M Tech: Location: [id number] Ref Provider: BISHNU HWANG Height(Cm): 180 BSA: 2.33 Weight(Kg): 109 Heart Rate: 85 BP: 103 / 54 Quality: Good Order Provider: BISHNU HWANG PROCEDURES: Echocardiographic Report: Limited transthoracic echocardiogram with 2D and color Doppler. INDICATIONS: Pericardial Effusion. MEASUREMENTS: 2D/MM Value Range EF Mod BP 60 % [ 52 - 72 ] 2D/MM Value Range - FINDINGS: Atrial Septum: Normal atrial septum. Aorta: Normal aortic root. Sinus of Valsalva is normal. Sinotubular junction isnormal. Ascending aorta is normal. Aortic arch is normal. Descending aorta isnormal. Left Ventricle: Mild concentric left ventricular hypertrophy. Ejection fraction ismeasured at 60 %. Left Atrium: The left atrium is normal in size. Normal left atrial pressure based onpulmonary vein inflow. Right Ventricle: Normal right ventricular size. Normal right ventricular systolicfunction. Right Atrium: The right atrium is normal in size. Aortic Valve: Normal structure of the aortic valve. Mitral Valve: Normal structure of the mitral valve. Pulmonic Valve: Normal structure of the pulmonic valve. No pulmonic stenosis. Tricuspid Valve: Normal structure of the tricuspid valve. Normal right ventricular systolicpressure. Pericardium: Normal pericardium with no significant pericardial effusion. CONCLUSIONS: Mild concentric left ventricular hypertrophy. Ejection fraction ismeasured at 60 %. The left atrium shows presence of amulet device. Normal pericardium with no significant pericardial effusion. Electronically Signed By: Brittany Lopez MD 10/05/2024 12:47:08 PM CDT Bishnu Hwang MD CV ECHO PROCEDURES Final Result * eGFR (10/05/2024 4:01 AM CDT) eGFR 82 >=60 mL/min/1. 73 m2 Comment: Interpretive Data [...] interpretive data was last reviewed 2020. Blood 10/05/2024 4:01 AM CDT 10/05/2024 4:05 AM CDT Kamar Stevens MD LAB BLOOD ORDERABLES Fin al Result Performing Organization Address City/[facility]/ZIP Co de Phone Number MARLENE FOWLER [address] [email or web address] [place], [place] [id number] * (ABNORMAL) CBC without differential (10/05/2024 4:01 AM CDT) WBC 7.34 3.80 - 9.90 K/cumm Hgb 7.6(L) 13.0 - 17.5 g/dL [facility] Hct 26.0(L) 38.9 - 50.3 % [facility] Plt 121(L) 150 - 400 K/cumm [facility] MPV 9.9 9.1 - 12.3 fL [facility] RBC 2.92(L) 4.30 - 5.80 M/cumm [facility] MCV 89.0 81.3 - 96.4 fL [facility] MCH 26.0(L) 27.1 - 33.3 pg [facility] MCHC 29.2(L) 32.3 - 35.7 g/dL [facility] RDW CV 15.1(H) 11.1 - 14.9 % [facility] RDW SD 48.3(H) 35.7 - 48.1 fL [facility] NRBC abs 0.00 0.00 - 0.01 K/cumm [facility] Blood 10/05/2024 4:01 AM CDT 10/05/2024 4:05 AM CDT Kamar Stevens MD LAB BLOOD ORDERABLES Fin al Result Performing Organization Address City/[facility]/ZIP Co de Phone Number MARLENE FOWLER [address] [place] [address] * (ABNORMAL) Basic metabolic panel (10/05/2024 4:01 AM CDT) Sodium 134(L) 135 - 145 mmol/L Potassium, pl 4.3 3.3 - 4.9 mmol/L [facility] Chloride 101 97 - 110 mmol/L [facility] CO2 23 22 - 32 mmol/L [facility] Anion gap 10 2 - 15 mmol/L [facility] BUN 22 6 - 25 mg/dL [facility] Creatinine 0.91 0.80 - 1.30 mg/dL [facility] Glucose 92 70 - 199 mg/dL [facility] Comment: Interpretive Data Fasting glucose >/= 126 [...] interpretive data was last revised 2022. Calcium 8.4(L) 8.5 - 10.3 mg/dL [facility] Blood 10/05/2024 4:01 AM CDT 10/05/2024 4:05 AM CDT Kamar Stevens MD LAB BLOOD ORDERABLES Fin al Result Performing Organization Address City/State/[facility] Co de Phone Number [facility] [address] [facility] Department [place] [address] * Critical Care (10/04/2024 12:22 PM CDT) Narrative Kamar Stevens MD - 10/04/2024 12:22 PM CDT Kamar Stevens MD 10/04/2024 12:24 PM Critical Care Performed by: Kamar Stevens MD Authorized by: Kamar Stevens MD CRITICAL CARE: Team: MITZY Shift: AM Level of Billing: Critical Care My time spent with this patient was 45 minutes: Critical Provider Statement: I have seen and examined the patient on this day of service. I have reviewed and confirmed the history, physical exam, laboratory and radiologic data as documented in the signed ICU note. I have reviewed and discussed my treatment plan with the ICU team and other medical/splunk consultant staff, making frequent assessments and decisions regarding this patient's complex medical care. Critical Care time was exclusive of time spent performing separately billed procedures, treating other patients, and teaching. This time was in addition to and separate from critical care provided by other practitioners in my group on this day of service. Critical Care was necessary to treat or prevent imminent or life-threatening deterioration of the following conditions: Undifferentiated shock and Cardiac tamponade Acute kidney injury This time was spent by me doing the following: Serial bedside patient exams Initiation/active titration of vasoactive medications Management of pericardial drain Active and frequent reassessment of respiratory status and oxygen requirements Review of prior or current culture/gram stain results I spent time reviewing and interpreting data from bedside monitors, laboratory results, and imaging, I spent time discussing the management of this critically ill patient with consultants and the medical staff and I spent time documenting in the medical record us Kamar Stevens MD IN CLINIC/BEDSIDE ORDERA BLES Final Result * TRANSTHORACIC ECHO (TTE) LIMITED/FOLLOW UP WO DOPPLER/CF WO CONTRAST (10/04/2024 7:40 AM CDT) Estimated EF 63 % CONS SCIMAGE EF Mod BP 63 % CONS SCIMAGE Anatomical Region Laterality Modality Ultrasound 10/04/2024 7:19 AM CDT Narrative 10/04/2024 9:20 [place] [address] Limited Echocardiogram Report Patient Name: DILAN BURR V : 1935 Study Date: 10/04/2024 7:19:30 AM Sex: M Tech: BE Location: [id number] Ref Provider: BISHNU HWANG Height(Cm): 180 BSA: 2.32 Weight(Kg): 108 Heart Rate: 93 BP: 121 / 64 Quality: Good Order Provider: BISHNU HWANG PROCEDURES: Echocardiographic Report: Limited transthoracic echocardiogram with 2D imaging. INDICATIONS: MEASUREMENTS: 2D/MM Value Range EF Mod BP 63 % [ 52 - 72 ] Estimated EF 63 % LVIDd 2D 4.05 cm [ 4.20 - 5.80 ] LVIDs 2D 2.93 cm [ 2.50 - 4.00 ] IVSd 2D 1.23 cm [ 0.60 - 1.00 ] 2D/MM Value Range - FINDINGS: Atrial Septum: Normal atrial septum. Aorta: Ascending aorta is mildly dilated. Ascending Aorta 4.0 cm. Left Ventricle: Normal left ventricular size. Moderate concentric left ventricular hypertrophy. Normal global left ventricular systolic function. Ejection fraction is measured at 63 %. Left Atrium: There is moderate enlargement of left atrium. Right Ventricle: Mild enlargement of right ventricle. Mild right ventricular hypokinesis. Right Atrium: There is moderate enlargement of right atrium. Aortic Valve: Aortic cusps appear moderately calcified. Mitral Valve: Moderate mitral annular calcification. Pulmonic Valve: Pulmonic valve not well visualized. Tricuspid Valve: Normal structure of the tricuspid valve. Pericardium: Normal pericardium with no significant pericardial effusion. CONCLUSIONS: Limited echo. Normal left ventricular size. Moderate left ventricular hypertrophy. Normal global left ventricular systolic function with variable contractility due to atrial fibrillation. Ejection fraction is measured at 63 %. Mild enlargement of right ventricle with mild hypokinesis. Moderate biatrial enlargement. S/P left atrial appendage closure using Amplatzer amulet closure device. Mitral annular calcification. Aortic cusps appear moderately calcified. S/P pericardiocentesis. No significant residual pericardial effusion. Electronically Signed By: Carlos Eduardo Hoyt MD, [facility] 10/04/2024 9:20:07 AM CDT Procedure Note Carlos Eduardo Hoyt MD - 10/04/2024 [place] [id number] Limited Echocardiogram Report Patient Name: DILAN BURR V : 1935 Study Date: 10/04/2024 7:19:30 AM Sex: M Tech: SHAYNE Location: [id number] Ref Provider: BISHNU HWANG Height(Cm): 180 BSA: 2.32 Weight(Kg): 108 Heart Rate: 93 BP: 121 / 64 Quality: Good Order Provider: KASHIF HWANGD PROCEDURES: Echocardiographic Report: Limited transthoracic echocardiogram with 2D imaging. INDICATIONS: MEASUREMENTS: 2D/MM Value Range EF Mod BP 63 % [ 52 - 72 ] Estimated EF 63 % LVIDd 2D 4.05 cm [ 4.20 - 5.80 ] LVIDs 2D 2.93 cm [ 2.50 - 4.00 ] IVSd 2D 1.23 cm [ 0.60 - 1.00 ] 2D/MM Value Range - FINDINGS: Atrial Septum: Normal atrial septum. Aorta: Ascending aorta is mildly dilated. Ascending Aorta 4.0 cm. Left Ventricle: Normal left ventricular size. Moderate concentric left ventricularhypertrophy. Normal global left ventricular systolic function. Ejection fraction is measuredat 63 %. Left Atrium: There is moderate enlargement of left atrium. Right Ventricle: Mild enlargement of right ventricle. Mild right ventricular hypokinesis. Right Atrium: There is moderate enlargement of right atrium. Aortic Valve: Aortic cusps appear moderately calcified. Mitral Valve: Moderate mitral annular calcification. Pulmonic Valve: Pulmonic valve not well visualized. Tricuspid Valve: Normal structure of the tricuspid valve. Pericardium: Normal pericardium with no significant pericardial effusion. CONCLUSIONS: Limited echo. Normal left ventricular size. Moderate left ventricularhypertrophy. Normal global left ventricular systolic function with variable contractility dueto atrial fibrillation. Ejection fraction is measured at 63 %. Mild enlargement of right ventricle with mild hypokinesis. Moderate biatrial enlargement. S/P left atrial appendage closure usingAmplatzer amulet closure device. Mitral annular calcification. Aortic cusps appear moderately calcified. S/P pericardiocentesis. No significant residual pericardial effusion. Electronically Signed By: Carlos Eduardo Hoyt MD, [facility] 10/04/2024 9:20:07 AM CDT Bishnu Hwang MD CV ECHO PROCEDURES Final Result * X-ray chest 1 view (Portable) (10/04/2024 6:28 AM CDT) Anatomical Region Laterality Modality Body, Chest N/A Computed Radiogr aphy 10/04/2024 9:27 AM CDT Impressions 10/04/2024 9:27 AM CDT Mild vascular congestion. Electronically signed by: Aimee Navarrete M.D. Narrative 10/04/2024 9:27 AM CDT EXAMINATION: XR CHEST 1 VIEW HISTORY: The patient is an 89-year-old male who has had a TAVR procedure. Comparison made with the previous study dated 10/03/2024. TECHNIQUE: AP portable view of the chest. FINDINGS: There is a pericardial drain noted overlying the left cardiac silhouette. TAVR device in place. Cardiomegaly with aortic atherosclerosis. Mild degree of vascular congestion. No focal consolidation. The distal tip of a left IJ line is at the confluence of the left innominate vein and superior vena cava. Procedure Note Aimee Navarrete MD - 10/04/2024 EXAMINATION: XR CHEST 1 VIEW HISTORY: The patient is an 89-year-old male who has had a TAVR procedure. Comparison made with the previous study dated 10/03/2024. TECHNIQUE: AP portable view of the chest. FINDINGS: There is a pericardial drain noted overlying the left cardiac silhouette. TAVR device in place. Cardiomegaly with aortic atherosclerosis. Mild degree of vascular congestion. No focal consolidation. The distal tip of a left IJ line is at the confluence of the left innominate vein and superior vena cava. IMPRESSION: Mild vascular congestion. Electronically signed by: Aimee Navarrete M.D. us Brayan Arevalo SEMIAUTOMATIC STITCHER OPERATOR IMG XR PROCEDURES Final Resu lt * Critical Care (10/04/2024 5:16 AM CDT) Narrative Brando Banks MD - 10/04/2024 5:16 AM CDT Brando Banks MD 10/04/2024 6:02 AM Critical Care Performed by: Brando Banks MD Authorized by: Brando Banks MD CRITICAL CARE: Team: SABINE Shift: PM Level of Billing: Critical Care My time spent with this patient was 40 minutes: Critical Provider Statement: I have seen and examined the patient on this day of service. I have reviewed and confirmed the history, physical exam, laboratory and radiologic data as documented in the signed ICU note. I have reviewed and discussed my treatment plan with the ICU team and other medical/splunk consultant staff, making frequent assessments and decisions regarding this patient's complex medical care. Critical Care time was exclusive of time spent performing separately billed procedures, treating other patients, and teaching. This time was in addition to and separate from critical care provided by other practitioners in my group on this day of service. Critical Care was necessary to treat or prevent imminent or life-threatening deterioration of the following conditions: Vasoplegic shock and Cardiac tamponade This time was spent by me doing the following: Serial evaluation and management of pericardial effusion and Initiation/active titration of vasoactive medications I spent time reviewing and interpreting data from bedside monitors, laboratory results, and imaging us Brando Banks MD IN CLINIC/BEDSIDE ORDERABLES Final Result * eGFR (10/04/2024 3:37 AM CDT) eGFR 85 >=60 mL/min/1. 73 m2 Comment: Interpretive Data [...] interpretive data was last reviewed 2020. Blood 10/04/2024 3:37 AM CDT 10/04/2024 3:47 AM CDT Kamar Stevens MD LAB BLOOD ORDERABLES Fin al Result Performing Organization Address City/[facility]/ZIP Co de Phone Number MARLENE FOWLER [email or web address] [address] * (ABNORMAL) CBC without differential (10/04/2024 3:37 AM CDT) WBC 8.39 3.80 - 9.90 K/cumm Hgb 7.7(L) 13.0 - 17.5 g/dL [facility] Hct 26.8(L) 38.9 - 50.3 % [facility] Plt 111(L) 150 - 400 K/cumm [facility] MPV 9.3 9.1 - 12.3 fL [facility] RBC 3.05(L) 4.30 - 5.80 M/cumm [facility] CH MCV 87.9 81.3 - 96.4 fL [facility] MCH 25.2(L) 27.1 - 33.3 pg [facility] MCHC 28.7(L) 32.3 - 35.7 g/dL [facility] CH RDW CV 14.8 11.1 - 14.9 % [facility] CH RDW SD 47.8 35.7 - 48.1 fL [facility] NRBC abs 0.00 0.00 - 0.01 K/cumm [facility] Blood 10/04/2024 3:37 AM CDT 10/04/2024 3:44 AM CDT Kamar Stevens MD LAB BLOOD ORDERABLES Fin al Result Performing Organization Address City/[facility]/ZIP Co de Phone Number MARLENE FOWLER [email or web address] [address] * (ABNORMAL) Basic metabolic panel (10/04/2024 3:37 AM CDT) Sodium 132(L) 135 - 145 mmol/L Potassium, pl 4.7 3.3 - 4.9 mmol/L [facility] Chloride 101 97 - 110 mmol/L [facility] CO2 24 22 - 32 mmol/L [facility] Anion gap 7 2 - 15 mmol/L [facility] BUN 18 6 - 25 mg/dL [facility] Creatinine 0.83 0.80 - 1.30 mg/dL [facility] Glucose 124 70 - 199 mg/dL [facility] Comment: Interpretive Data Fasting glucose >/= 126 [...] interpretive data was last revised 2022. Calcium 8.5 8.5 - 10.3 mg/dL [facility] Blood 10/04/2024 3:37 AM CDT 10/04/2024 3:47 AM CDT Kamar Stevens MD LAB BLOOD ORDERABLES [facility] al Result [facility] [address] Department [place] [address] * (ABNORMAL) Urinalysis reflex to microscopic (10/03/2024 8:45 PM CDT) Color, ur Yellow Yellow Clarity, ur Clear Clear [facility] Specific gravity, ur 1.039(H) 1.003 - 1.030 [facility] pH, urine 5.5 [facility] Comment: Interpretive Data U rine pH is affected by diet, medications, systemic acid-base disturbances, and renal tubular function. pH may affect urinary stone formation. For example, urine pH below 6.0 may help reduce the tendency for calcium phosphate stones and pH greater than 6.0 may reduce the tendency for uric acid stone formation. Source: [facility] Current Interpretive Data was last revised on 2017 Protein, ur ql Trace Negative [facility] Glucose, ur ql Negative Negative [facility] Ketones, ur Trace Negative [facility] Bilirubin, ur Negative Negative [facility] Blood, ur Negative Negative [facility] Urobilinogen, ur <2.0 <2.0 mg/dL [facility] Nitrite, ur Negative Negative [facility] Leukocyte esterase, ur Negative Negative [facility] UA reflex comment Reflex conditions for microscopic UA not met. [facility] Urine 10/03/2024 8:45 PM CDT 10/03/2024 9:00 PM CDT us Brando Banks MD LAB URINE ORDERABLES Final R esult [address]LEN[address] Department [place] [address] * eGFR (10/03/2024 8:29 PM CDT) eGFR 74 >=60 mL/min/1. 73 m2 Comment: Interpretive Data [...] interpretive data was last reviewed 2020. Blood 10/03/2024 8:29 PM CDT 10/03/2024 8:33 PM CDT us Brando Banks MD LAB BLOOD ORDERABLES Final R esult [address] Department [place] [address] * (ABNORMAL) Differential, auto (10/03/2024 8:29 PM CDT) Neutrophil abs 4.41 1.50 - 6.50 K/cumm Imm gran abs 0.23(H) 0.00 - 0.10 K/cumm [facility] Lymphocyte abs 0.79(L) 0.80 - 3.30 K/cumm [facility] Monocyte abs 1.11(H) 0.20 - 0.80 K/cumm [facility] Eosinophil abs 0.05 0.00 - 0.50 K/cumm [facility] Basophil abs 0.04 0.00 - 0.10 K/cumm [facility] Neutrophil pct 66.5 % [facility] Comment: Interpretive Data Percent cell count reference ranges are not reported, since discordance with absolute values may lead to misinterpretation of CBC data. Current Interpretive Data was last revised on 2017. Imm gran pct 3.5 % [facility] Comment: Interpretive Data Percent cell count reference ranges are not reported, since discordance with absolute values may lead to misinterpretation of CBC data. Current Interpretive Data was last revised on 2017. Lymphocyte pct 11.9 % [facility] Comment: Interpretive Data Percent cell count reference ranges are not reported, since discordance with absolute values may lead to misinterpretation of CBC data. Current Interpretive Data was last revised on 2017. Monocyte pct 16.7 % [facility] Comment: Interpretive Data Percent cell count reference ranges are not reported, since discordance with absolute values may lead to misinterpretation of CBC data. Current Interpretive Data was last revised on 2017. Eosinophil pct 0.8 % [facility] Comment: Interpretive Data Percent cell count reference ranges are not reported, since discordance with absolute values may lead to misinterpretation of CBC data. Current Interpretive Data was last revised on 2017. Basophil pct 0.6 % [facility] Comment: Interpretive Data Percent cell count reference ranges are not reported, since discordance with absolute values may lead to misinterpretation of CBC data. Current Interpretive Data was last revised on 2017. Blood 10/03/2024 8:29 PM CDT 10/03/2024 8:33 PM CDT Brando Banks MD LAB BLOOD ORDERABLES Final R esult Performing Organization Address City/[facility]/ZIP Co de Phone Number MARLENE [address] [email or web address] [address] * (ABNORMAL) CBC with auto differential (10/03/2024 8:29 PM CDT) WBC 6.63 3.80 - 9.90 K/cumm Hgb 7.8(L) 13.0 - 17.5 g/dL [facility] Hct 26.5(L) 38.9 - 50.3 % [facility] Plt 101(L) 150 - 400 K/cumm [facility] MPV 8.9(L) 9.1 - 12.3 fL [facility] RBC 3.01(L) 4.30 - 5.80 M/cumm [facility] MCV 88.0 81.3 - 96.4 fL [facility] MCH 25.9(L) 27.1 - 33.3 pg [facility] MCHC 29.4(L) 32.3 - 35.7 g/dL [facility] RDW CV 14.6 11.1 - 14.9 % [facility] RDW SD 47.0 35.7 - 48.1 fL [facility] NRBC abs 0.00 0.00 - 0.01 K/cumm [facility] Blood 10/03/2024 8:29 PM CDT 10/03/2024 8:33 PM CDT Brando Banks MD LAB BLOOD ORDERABLES Final R esult Performing Organization Address City/[facility]/ZIP Co de Phone Number MARLENE FOWLER [address] Department [place] [address] * Phosphorus (10/03/2024 8:29 PM CDT) Phosphorus, pl 3.8 2.3 - 4.5 mg/dL Blood 10/03/2024 8:29 PM CDT 10/03/2024 8:33 PM CDT Brando Bakns MD LAB BLOOD ORDERABLES Final R esult Performing Organization Address [facility] Co de Phone Number MARLENE FOWLER [address] [place] [address] * Magnesium (10/03/2024 8:29 PM CDT) Pathologist [facility] Magnesium 2.1 1.4 - 2.5 mg/dL Blood 10/03/2024 8:29 PM CDT 10/03/2024 8:33 PM CDT Brando Banks MD LAB BLOOD ORDERABLES Final R esult Performing Organization Address [facility] de Phone Number MARLENE FOWLER [address] [facility] [place] [address] * (ABNORMAL) Blood gas, arterial (10/03/2024 8:29 PM CDT) pH, Art 7.36 7.35 - 7.45 PCO2, Arterial 41 35 - 45 mmHg [facility] PO2, Arterial 171(H) 83 - 108 mmHg [facility] HCO3 Art (Calculated) 23 20 - 30 mmol/L [facility] BE, art -2 mmol/L [facility] Comment: Interpretive Data No Reference Range Established Current Interpretive Data was last revised on 2017 O2 Sat Art (Measured) 96(H) 90 - 95 % [facility] Blood 10/03/2024 8:29 PM CDT 10/03/2024 8:32 PM CDT Brando Banks MD LAB BLOOD ORDERABLES Final R esult MARLENE FOWLER [address] Department [place] [address] * (ABNORMAL) Basic metabolic panel (10/03/2024 8:29 PM CDT) Sodium 130(L) 135 - 145 mmol/L Potassium, pl 5.0(H) 3.3 - 4.9 mmol/L [facility] Chloride 98 97 - 110 mmol/L [facility] CO2 22 22 - 32 mmol/L [facility] Anion gap 10 2 - 15 mmol/L [facility] BUN 18 6 - 25 mg/dL [facility] Creatinine 0.99 0.80 - 1.30 mg/dL [facility] Glucose 149 70 - 199 mg/dL [facility] Comment: Interpretive Data Fasting glucose >/= 126 [...] interpretive data was last revised 2022. Calcium 8.6 8.5 - 10.3 mg/dL [facility] Blood 10/03/2024 8:29 PM CDT 10/03/2024 8:33 PM CDT Brando Banks MD LAB BLOOD ORDERABLES Final R esult MARLENE FOWLER [address] Department [place] [address] * (ABNORMAL) POC Blood Gas and Chemistries, Arterial - (10/03/2024 7:35 PM CDT) pH, Art POC 7.35 7.35 - 7.45 pCO2, Art POC 41 35 - 45 mmHg [facility] pO2, Art POC 127(H) 83 - 108 mmHg [facility] Na, POC 128(L) 135 - 145 mmol/L [facility] K POC 4.9 3.3 - 4.9 mmol/L [facility] Comment: Interpretive Data This method is not able to assess for hemolysis, which may falsely increase potassium concentrations. If further testing is needed to evaluate this result, consider in-laboratory plasma potassium. Current Interpretive Data was last revised on 2021. Ionized Ca, POC 4.61 4.50 - 5.10 mg/dL [facility] Glucose, POC 148 70 - 199 mg/dL [facility] Lactate POC 1.1 0.7 - 2.0 mmol/L [facility] O2Hb, Art POC 97.2(H) 90.0 - 95.0 % [facility] SO2 (raissa) arterial 97(H) 90 - 95 % [facility] Total CO2, Art POC 24 21 - 30 mmol/L [facility] BE, art, POC -3 mmol/L [facility] HCO3, Art POC 23 20 - 30 mmol/L [facility] Hct, POC 23.0(L) 38.9 - 50.3 % [facility] Total Hb, POC 7.7(L) 13.0 - 17.5 g/dL [facility] Blood 10/03/2024 7:35 PM CDT 10/03/2024 7:35 PM CDT us Brando Banks MD LAB POCT ORDERABLES - DEVICE Final Result Performing Organization Address City/State/[facility] Co ak Phone Number [facility] [address] [facility] [place] [address] * Critical Care (10/03/2024 12:29 PM CDT) Narrative Kamar Stevens MD - 10/03/2024 12:29 PM CDT Kamar Stevens MD 10/03/2024 12:31 PM Critical Care Performed by: Kamar Stevens MD Authorized by: Kamar Stevens MD CRITICAL CARE: Team: MITZY Shift: AM Level of Billing: Critical Care My time spent with this patient was 60 minutes: Critical Provider Statement: I have seen and examined the patient on this day of service. I have reviewed and confirmed the history, physical exam, laboratory and radiologic data as documented in the signed ICU note. I have reviewed and discussed my treatment plan with the ICU team and other medical/splunk consultant staff, making frequent assessments and decisions regarding this patient's complex medical care. Critical Care time was exclusive of time spent performing separately billed procedures, treating other patients, and teaching. This time was in addition to and separate from critical care provided by other practitioners in my group on this day of service. Critical Care was necessary to treat or prevent imminent or life-threatening deterioration of the following conditions: Cardiac tamponade and Undifferentiated shock This time was spent by me doing the following: Serial bedside patient exams Frequent neurologic exams Initiation/active titration of vasoactive medications and Serial evaluation and management of pericardial effusion Active and frequent reassessment of respiratory status and oxygen requirements Review of prior or current culture/gram stain results and Obtaining appropriate cultures I spent time reviewing and interpreting data from bedside monitors, laboratory results, and imaging, I spent time discussing the management of this critically ill patient with consultants and the medical staff and I spent time documenting in the medical record us Kamar Stevens MD IN CLINIC/BEDSIDE ORDERA BLES Final Result * (ABNORMAL) Troponin T high-sensitivity 6-hour (10/03/2024 8:10 AM CDT) Trop T hs 68(H) <=22 ng/L Comment: Interpretive Data For further hscTnT resources including the diagnostic algorithm and an aid in interpretation, copy and paste this link: https://nrl.testcatalog.org/show/hsTrop Current Interpretive Data last revised 2019. Trop T hs delta 10 ng/L [facility] Trop T hs interp Equivocal [facility] Blood 10/03/2024 8:10 AM CDT 10/03/2024 8:23 AM CDT us Brando Banks MD LAB BLOOD ORDERABLES Final R esult MARLENE [address] [place] [address] * ECG 12 lead (10/03/2024 7:58 AM CDT) 10/03/2024 7:58 AM CDT Narrative [facility] - 10/03/2024 8:31 AM CDT Vent Rate: 70 bpm RR Interval: 852 msec MI Interval: 0 msec QRS Duration: 98 msec QT Interval: 398 msec QTC Interval: 419 msec P-R-T Sevier: 0 - 76 - 17 degrees IMPRESSION: ATRIAL FIBRILLATION RIGHT VENTRICULAR CONDUCTION DELAY Electronically Signed By: Carlos Eduardo Hoyt MD, [facility] us Brayan Arevalo NP ECG ORDERABLES Final Result [facility] * TRANSTHORACIC ECHO (TTE) LIMITED/FOLLOW UP W LTD DOPPLER/CF WO CONTRAST (10/03/2024 7:23 AM CDT) EF Mod BP 56 % CONS SCIMAGE Anatomical Region Laterality Modality Ultrasound 10/03/2024 6:46 AM CDT Narrative 10/03/2024 10:20 [place] [address] Limited Echocardiogram Report Patient Name: DILAN BURR V : 1935 Study Date: 10/03/2024 6:46:47 AM Sex: M Tech: Location: [id number] [facility] Provider: PHILIP MANUEL Height(Cm): 180 BSA: 2.24 Weight(Kg): 100 Heart Rate: 75 BP: 68 / 43 Quality: Good Order Provider: HPILIP MANUEL PROCEDURES: Echocardiographic Report: Limited transthoracic echocardiogram with 2D and color Doppler. INDICATIONS: S/P LAAO and pericardial drain. MEASUREMENTS: 2D/MM Value Range EF Mod BP 56 % [ 52 - 72 ] LVIDd 2D 3.95 cm [ 4.20 - 5.80 ] LVIDs 2D 2.82 cm [ 2.50 - 4.00 ] IVSd 2D 1.09 cm [ 0.60 - 1.00 ] 2D/MM Value Range - FINDINGS: Left Ventricle: Normal left ventricular systolic function with no focal wall motion abnormalities. Ejection fraction is measured at 56 %. Left Atrium: Left atrium is adequately Visualized. Amulet device present in left atrial appendage. Pericardium: Trivial inferior pericardial effusion. CONCLUSIONS: Normal left ventricular systolic function with no focal wall motion abnormalities. Ejection fraction is measured at 56 %. Left atrium is adequately Visualized. Amulet device present in left atrial appendage. Trivial inferior pericardial effusion. Electronically Signed By: Mora Warren DO, FACC, FASE, FASNC 10/03/2024 10:19:33 AM CDT Procedure Note Mora Warren DO - 10/03/2024 [place] [address] Limited Echocardiogram Report Patient Name: DILAN BURR V : 1935 Study Date: 10/03/2024 6:46:47 AM Sex: M Tech: Location: [id number] [facility] Provider: PHILIP MANUEL Height(Cm): 180 BSA: 2.24 Weight(Kg): 100 Heart Rate: 75 BP: 68 / 43 Quality: Good Order Provider: PHILIP MANUEL PROCEDURES: Echocardiographic Report: Limited transthoracic echocardiogram with 2D and color Doppler. INDICATIONS: S/P LAAO and pericardial drain. MEASUREMENTS: 2D/MM Value Range EF Mod BP 56 % [ 52 - 72 ] LVIDd 2D 3.95 cm [ 4.20 - 5.80 ] LVIDs 2D 2.82 cm [ 2.50 - 4.00 ] IVSd 2D 1.09 cm [ 0.60 - 1.00 ] 2D/MM Value Range - FINDINGS: Left Ventricle: Normal left ventricular systolic function with no focal wall motionabnormalities. Ejection fraction is measured at 56 %. Left Atrium: Left atrium is adequately Visualized. Amulet device present in left atrialappendage. Pericardium: Trivial inferior pericardial effusion. CONCLUSIONS: Normal left ventricular systolic function with no focal wall motionabnormalities. Ejection fraction is measured at 56 %. Left atrium is adequately Visualized. Amulet device present in left atrialappendage. Trivial inferior pericardial effusion. Electronically Signed By: Mora Warren DO, FACC, DANI, FRACISCO 10/03/2024 10:19:33 AM CDT Philip Manuel MD CV ECHO PROCEDURES Final Resul t * (ABNORMAL) Troponin T high-sensitivity 4-hour (10/03/2024 6:22 AM CDT) Trop T hs 65(H) <=22 ng/L Comment: Interpretive Data For further hscTnT resources including the diagnostic algorithm and an aid in interpretation, copy and paste this link: https://nrl.testcatalog.org/show/hsTrop Current Interpretive Data last revised 2019. Trop T hs delta 7 ng/L MARLENE FOWLER Trop T hs interp Equivocal MARLENE FOWLER Blood 10/03/2024 6:22 AM CDT 10/03/2024 6:51 AM CDT us Brando Banks MD LAB BLOOD ORDERABLES Final R esult MARLENE FOWLER [address] [facility] [place] [address] * Cell Differential, Body Fluid (10/03/2024 6:22 AM CDT) Total cells diffed 100 % Comment: Interpretive Data Unless otherwise specified, the reference range and other method performance specifications have not been established for CSF/Body Fluid tests. The test results should be integrated into the clinical context for interpretation. Current interpretive data was last revised on 2018. Neutrophils, fld 93 % [facility] Lymphs, fld 7 % [facility] Fluid 10/03/2024 6:22 AM CDT 10/03/2024 6:51 AM CDT Brando Banks MD LAB BODY FLUIDS AND STOOLS O RDERABLES Final Result Performing Organization Address [facility] Co de Phone Number MARLENE FOWLER [address] [place] [address] * Cell count w/rflx diff, body fluid (10/03/2024 6:22 AM CDT) Specimen type, fld Pericardial Color, fld Red [facility] Clarity, fld Turbid [facility] Nucleated cells, fld 4,870 /cumm [facility] Comment: Interpretive Data Unless otherwise specified, the reference range and other method performance specifications have not been established for CSF/Body Fluid tests. The test results should be integrated into the clinical context for interpretation. Current interpretive data was last revised on 2018. RBC, fld 2,102,000 /cumm [facility] Fluid 10/03/2024 6:22 AM CDT 10/03/2024 6:51 AM CDT us Brando Banks MD LAB BODY FLUIDS AND STOOLS O RDERABLES Final Result Performing Organization Address [facility] Co de Phone Number MARLENE [address] [facility] [place] [address] * (ABNORMAL) Differential, auto (10/03/2024 4:36 AM CDT) Neutrophil abs 7.15(H) 1.50 - 6.50 K/cumm Imm gran abs 0.34(H) 0.00 - 0.10 K/cumm [facility] Lymphocyte abs 0.70(L) 0.80 - 3.30 K/cumm [facility] Monocyte abs 1.16(H) 0.20 - 0.80 K/cumm [facility] Eosinophil abs 0.01 0.00 - 0.50 K/cumm [facility] Basophil abs 0.01 0.00 - 0.10 K/cumm [facility] Neutrophil pct 76.3 % [facility] Comment: Interpretive Data Percent cell count reference ranges are not reported, since discordance with absolute values may lead to misinterpretation of CBC data. Current Interpretive Data was last revised on 2017. Imm gran pct 3.6 % [facility] Comment: Interpretive Data Percent cell count reference ranges are not reported, since discordance with absolute values may lead to misinterpretation of CBC data. Current Interpretive Data was last revised on 2017. Lymphocyte pct 7.5 % [facility] Comment: Interpretive Data Percent cell count reference ranges are not reported, since discordance with absolute values may lead to misinterpretation of CBC data. Current Interpretive Data was last revised on 2017. Monocyte pct 12.4 % [facility] Comment: Interpretive Data Percent cell count reference ranges are not reported, since discordance with absolute values may lead to misinterpretation of CBC data. Current Interpretive Data was last revised on 2017. Eosinophil pct 0.1 % [facility] Comment: Interpretive Data Percent cell count reference ranges are not reported, since discordance with absolute values may lead to misinterpretation of CBC data. Current Interpretive Data was last revised on 2017. Basophil pct 0.1 % [facility] Comment: Interpretive Data Percent cell count reference ranges are not reported, since discordance with absolute values may lead to misinterpretation of CBC data. Current Interpretive Data was last revised on 2017. Blood 10/03/2024 4:36 AM CDT 10/03/2024 4:36 AM CDT Brayan Arevalo NP LAB BLOOD ORDERABLES Final R esult MARLENE FOWLER [address] Department of Laboratories [place], [place] [id number] * Aerobic and anaerobic culture and gram stain Pericardial fluid Pericardium (10/03/2024 4:36 AM CDT) Direct Specimen Exam Stain: Cytospin Gram stain shows: No polymorphonuclear leukocytes seen. Red blood cells present. Other cellular material present. No organisms seen. Comment:Testing performed by : [facility], [address] [place]., [address] Report Final Report: No growth MARLENE FOWLER Comment:Testing performed by : [facility], [address] [place]., [address] Pericardial fluid (Pericardium) 10/03/2024 4:36 AM CDT 10/03/2024 8:21 AM CDT Narrative MARLENE FOWLER - 10/06/2024 10:19 AM CDT Testing performed by [facility] Microbiology Laboratory ([phone]) Specimens submitted from normally sterile body sites will have all bacterial morphotypes identified. Specimens that contain grossly mixed steven and/or are from body sites that are not normally sterile will be examined for Staphylococcus aureus, Pseudomonas aeruginosa, beta-hemolytic strep, vancomycin-resistant Enterococcus, Bacteroides, Parabacteroides, Clostridium perfringens and fungus. If any of these are isolated, the organism will be reported. Current interpretive data was last revised on 2019. us Brando Banks MD LAB MICROBIOLOGY - GENERAL O RDERABLES Final Result MARLENE FOWLER [address] Department [place] [address] * (ABNORMAL) CBC with auto differential (10/03/2024 4:36 AM CDT) WBC 9.37 3.80 - 9.90 K/cumm Hgb 8.0(L) 13.0 - 17.5 g/dL [facility] Hct 26.7(L) 38.9 - 50.3 % [facility] Plt 116(L) 150 - 400 K/cumm [facility] MPV 9.1 9.1 - 12.3 fL [facility] RBC 3.12(L) 4.30 - 5.80 M/cumm [facility] MCV 85.6 81.3 - 96.4 fL [facility] MCH 25.6(L) 27.1 - 33.3 pg [facility] MCHC 30.0(L) 32.3 - 35.7 g/dL [facility] RDW CV 14.6 11.1 - 14.9 % [facility] RDW SD 45.2 35.7 - 48.1 fL [facility] NRBC abs 0.00 0.00 - 0.01 K/cumm [facility] Blood 10/03/2024 4:36 AM CDT 10/03/2024 4:36 AM CDT Brayan Arevalo NP LAB BLOOD ORDERABLES Final R esult Performing Organization Address [facility] Co de Phone Number MARLENE FOWLER [email or web address] [address] * aPTT (10/03/2024 4:36 AM CDT) aPTT 28 26 - 38 sec Comment: Interpretive Data Heparin therapeutic range: 66.0 - 100.0 seconds. Range based on correlation with therapeutic heparin activity range of 0.3 - 0.7 Units/mL. Current interpretive data was last revised on 2022. Blood 10/03/2024 4:36 AM CDT 10/03/2024 4:36 AM CDT Brayan Arevalo NP LAB BLOOD ORDERABLES Final R esult Performing Organization Address [facility] Co de Phone Number MARLENE FOWLER [address] Department [employer] [place], [place] [id number] * Protime-INR (10/03/2024 4:36 AM CDT) PT 13.2 10.2 - 13.5 sec INR 1.17 0.90 - 1.20 MARLENE Comment: Interpretive data Oral anticoagulant therapeutic ranges: Venous thromboembolism prophylaxis or treatment: 2.0-3.0 CARDIOLOGY Standard range: 2.0-3.0 High-intensity range: 2.5-3.5 Refer to indication-specific guidelines for appropriate target ranges for prosthetic heart valve replacement. Current interpretive data was last revised on 2019. Blood 10/03/2024 4:3 6 AM CDT 10/03/2024 4:36 AM CDT Brayan Arevalo NP LAB BLOOD ORDERABLES Final R esult Performing Organization Address [facility] de Phone Number MARLENE [email or web address] [address] * (ABNORMAL) Troponin T high-sensitivity 2-hour (10/03/2024 4:11 AM CDT) Pathologist [facility] Trop T hs 64(H) <=22 ng/L Comment: Interpretive Data For further hscTnT resources including the diagnostic algorithm and an aid in interpretation, copy and paste this link: https://nrl.testcatalog.org/show/hsTrop Current Interpretive Data last revised 2019. Trop T hs delta 6 ng/L [facility] Trop T hs interp Equivocal [facility] Blood 10/03/2024 4:11 AM CDT 10/03/2024 4:34 AM CDT Brando Banks MD LAB BLOOD ORDERABLES Final R esult Performing Organization Address [facility] Co de Phone Number MARLENE [address] [facility] [place] [place] [address] * Lactate (10/03/2024 4:11 AM CDT) Pathologist [facility] Lactate 1.3 0.7 - 2.0 mmol/L Blood 10/03/2024 4:11 AM CDT 10/03/2024 4:34 AM CDT us Brando Banks MD LAB BLOOD ORDERABLES Final R esult Performing Organization Address [facility] Co de Phone Number MARLENE FOWLER [address] [place] [address] * eGFR (10/03/2024 4:11 AM CDT) eGFR 67 >=60 mL/min/1. 73 m2 Comment: Interpretive Data [...] interpretive data was last reviewed 2020. Blood 10/03/2024 4:11 AM CDT 10/03/2024 4:44 AM CDT us Brayan Arevalo NP LAB BLOOD ORDERABLES Final R esult Performing Organization Address [facility] Co de Phone Number MARLENE FOWLER [address] [place] [address] * (ABNORMAL) Pro B-type natriuretic peptide (10/03/2024 4:11 AM CDT) NT-proBNP 3,765(H) <=450 pg/mL Comment: Interpretive Comments: A. Dyspnea in Acute Care Setting All Ages: < 300 pg/ml, acute heart failure unlikely. < 50 yrs: 300 - 450 pg/ml, further investigation warranted. > 450 pg/ml, acute heart failure likely. 50 - 74 yrs: 300 - 900 pg/ml, further investigation warranted. > 900 pg/ml, acute heart failure likely . > or = 75 yrs: 450 - 1800 pg/ml, further investigation warranted. > 1800 pg/ml, acute heart failure likely. B. Non-acute Setting < 75 yrs < 125 pg/ml, rules out heart failure. > or = 125 pg/ml, further investigation warranted. > or = 75 yrs < 450 pg/ml, rules out heart failure. > or = 450 pg/ml, further investigation warranted. - Knowledge of each individual patient's NT-proBNP range may be more useful than using similar cut-points for every patient. Please note that marked elevations in NT-proBNP levels may be observed in state other than Left Ventricular Congestive Failure, including: acute coronary syndromes, right heart strain/failure (including pulmonary embolism and cor pulmonale), critical illness, renal failure, as well as advanced age. - References: 1. Afia BENTLEY et.al. Eur Heart J. 2006:27:330-337. 2. April RW, Angie LEMONS. J. AM Caleb Cardiol: Cardiovasc Imag. 2009;2: 216- 225. Interpretive Data Last Revised Date: 2017. Blood 10/03/2024 4:11 AM CDT 10/03/2024 4:34 AM CDT Brayan Arevalo NP LAB BLOOD ORDERABLES Final R esult Performing Organization Address City/State/[facility] de Phone Number MARLENE [address] [place] [address] * Magnesium (10/03/2024 4:11 AM CDT) Magnesium 1.8 1.4 - 2.5 mg/dL Blood 10/03/2024 4:11 AM CDT 10/03/2024 4:34 AM CDT Brayan Arevalo NP LAB BLOOD ORDERABLES Final R esult Performing Organization Address City/[facility] Co de Phone Number MARLENE FOWLER [address] [place] [address] * Blood gas, arterial (10/03/2024 4:11 AM CDT) pH, Art 7.35 7.35 - 7.45 PCO2, Arterial 43 35 - 45 mmHg [facility] PO2, Arterial 89 83 - 108 mmHg [facility] HCO3 Art (Calculated) 23 20 - 30 mmol/L [facility] BE, art -2 mmol/L [facility] Comment: Interpretive Data No Reference Range Established Current Interpretive Data was last revised on 2017 O2 Sat Art (Measured) 93 90 - 95 % [facility] Blood 10/03/2024 4:11 AM CDT 10/03/2024 4:34 AM CDT us Brando Banks MD LAB BLOOD ORDERABLES Final R esult Performing Organization Address [facility] de Phone Number MARLENE FOWLER [address] [place] [address] * (ABNORMAL) Comprehensive metabolic panel (10/03/2024 4:11 AM CDT) Pathologist [facility] Sodium 129(L) 135 - 145 mmol/L Potassium, pl 4.6 3.3 - 4.9 mmol/L [facility] Chloride 98 97 - 110 mmol/L [facility] CO2 23 22 - 32 mmol/L [facility] Anion gap 8 2 - 15 mmol/L [facility] BUN 16 6 - 25 mg/dL [facility] Creatinine 1.07 0.80 - 1.30 mg/dL [facility] Glucose 156 70 - 199 mg/dL [facility] Comment: Interpretive Data Fasting glucose >/= 126 [...] interpretive data was last revised 2022. Calcium 8.3(L) 8.5 - 10.3 mg/dL [facility] Bilirubin, total 0.5 0.1 - 1.2 mg/dL [facility] Protein, pl 5.5(L) 6.5 - 8.5 g/dL [facility] Albumin 3.5 3.5 - 5.0 g/dL [facility] Alk phos 73 40 - 130 Units/L [facility] ALT 11 7 - 55 Units/L [facility] AST 24 10 - 50 Units/L [facility] Blood 10/03/2024 4:11 AM CDT 10/03/2024 4:34 AM CDT us Brayan Arevalo NP LAB BLOOD ORDERABLES Final R esult [facility] [address] Department [place] [address] * MI ARTL CATHJ/CANNULJ MNTR/TRANSFUSION SPX PRQ (10/03/2024 2:55 AM CDT) Narrative Ana Paula [place] PA - 10/03/2024 2:55 AM CDT Ana Paula [place] PA 10/03/2024 2:56 AM Arterial Line Insertion Date/Time: 10/03/2024 2:55 AM Performed by: Ana Paula [place] PA Authorized by: Ana Paula [place] PA Logan Protocol: RN Notified of Procedure: yes Informed consent: Unable to obtain due to emergent status Patient's stated name/ matches armband: Patient unable to verbalize - armband matched to name and within medical record Allergies confirmed: yes Consent form signed, dated, timed; matches correct patient, intended procedure and site: No consent form due to emergent status Imaging: Pertinent imaging reviewed, correctly oriented and match to patient identifiers Lab/Diag test results: Pertinent lab/diag tests reviewed and match to patient identifiers Supplies, devices and special equipment are available: yes Site/side marked: yes Immediately prior to the procedure a time out was called: a verbal verification by the procedure participants confirmed correct patient identity, correct site/side marked and visible (if applicable); agreement on procedure to be done; and correct patient positioning Indications: multiple ABGs, respiratory failure and hemodynamic monitoring Location: Left femoral Anesthesia: Local infiltration Local anesthetic: Lidocaine 1% Patient skin preparation: chlorhexidine Ultrasound guidance: Pre-procedure diagnostic and real-time needle guidance Patient preparation: Cap, gloves, handwashing, mask, sterile probe cover and towels Ramu's test normal?: Yes Catheter length (cm): 12 Single percutaneous needle puncture: Yes Seldinger technique used: Yes Number of attempts: 1 Placement confirmed with arterial waveform: Yes Post-procedure: Line sutured and dressing applied Post-procedure CMS: Normal Patient tolerance: Patient tolerated the procedure well with no immediate complications Complications: no complications noted during insertion I personally performed the above procedure which is separate from my critical care time. Post Procedure Debrief: All guidewires, needles, sponges or other items are accounted for: yes Any special post procedure monitoring, testing or other considerations: yes (enter/request order) All specimens identified, labeled and matched to patient identification: n/a Responsible democrat for transporting specimen(s) to lab determined: n/a Ana Paula PERRY IV THERAPY ORDERABLES Fi nal Result * Critical Care (10/03/2024 2:34 AM CDT) Narrative Brando Banks MD - 10/03/2024 2:34 AM CDT Brando Banks MD 10/03/2024 4:42 AM Critical Care Performed by: Brando Banks MD Authorized by: Brando Banks MD CRITICAL CARE: Team: [facility] Shift: PM Level of Billing: Critical Care My time spent with this patient was 200 minutes: Critical Provider Statement: I have seen and examined the patient on this day of service. I have reviewed and confirmed the history, physical exam, laboratory and radiologic data as documented in the signed ICU note. I have reviewed and discussed my treatment plan with the ICU team and other medical/splunk consultant staff, making frequent assessments and decisions regarding this patient's complex medical care. Critical Care time was exclusive of time spent performing separately billed procedures, treating other patients, and teaching. This time was in addition to and separate from critical care provided by other practitioners in my group on this day of service. Critical Care was necessary to treat or prevent imminent or life-threatening deterioration of the following conditions: Atrial fibrillation with rapid ventricular rate and Cardiac tamponade Obstructive Shock Lactic acidosis This time was spent by me doing the following: Serial bedside patient exams and Resuscitation with fluids Initiation/active titration of inotropic medications, Initiation/active titration of vasoactive medications and Serial evaluation and management of pericardial effusion I spent time documenting in the medical record, I spent time discussing the management of this critically ill patient with consultants and the medical staff and I spent time reviewing and interpreting data from bedside monitors, laboratory results, and imaging us Brando Banks MD IN CLINIC/BEDSIDE ORDERABLES Final Result * (ABNORMAL) POC Blood Gas and Chemistries, Arterial - (10/03/2024 2:34 AM CDT) pH, Art POC 7.34(L) 7.35 - 7.45 pCO2, Art POC 36 35 - 45 mmHg [facility] pO2, Art POC 177(H) 83 - 108 mmHg [facility] Na, POC 130(L) 135 - 145 mmol/L [facility] K POC 4.0 3.3 - 4.9 mmol/L [facility] Comment: Interpretive Data This method is not able to assess for hemolysis, which may falsely increase potassium concentrations. If further testing is needed to evaluate this result, consider in-laboratory plasma potassium. Current Interpretive Data was last revised on 2021. Ionized Ca, POC 4.23(L) 4.50 - 5.10 mg/dL [facility] Glucose, POC 153 70 - 199 mg/dL [facility] Lactate POC 1.7 0.7 - 2.0 mmol/L [facility] O2Hb, Art POC 97.5(H) 90.0 - 95.0 % [facility] SO2 (raissa) arterial 98(H) 90 - 95 % [facility] Total CO2, Art POC 20(L) 21 - 30 mmol/L [facility] BE, art, POC -6 mmol/L [facility] HCO3, Art POC 20 20 - 30 mmol/L [facility] Hct, POC 24.0(L) 38.9 - 50.3 % [facility] Total Hb, POC 8.1(L) 13.0 - 17.5 g/dL [facility] Blood 10/03/2024 2:34 AM CDT 10/03/2024 2:34 AM CDT Bishnu Hwang MD LAB POCT ORDERABLES - DEVICE Fi nal Result Performing Organization Address [facility] de Phone Number MARLENE [address] Department [place] [address] * (ABNORMAL) Troponin T high-sensitivity series (baseline, 2hr, 4hr, 6hr) (10/03/2024 2:24 AM CDT) Trop T hs 58(H) <=22 ng/L Comment: Interpretive Data For further hscTnT resources including the diagnostic algorithm and an aid in interpretation, copy and paste this link: [email or web address] Current Interpretive Data last revised 2019. Blood 10/03/2024 2:24 AM CDT 10/03/2024 2:26 AM CDT Brando Banks MD LAB BLOOD ORDERABLES Final R esult Performing Organization Address [facility] Phone Number MARLENE [address] [place] [address] * ECG 12 lead (10/03/2024 2:13 AM CDT) 10/03/2024 2:13 AM CDT Narrative [facility] - 10/04/2024 7:37 AM CDT Vent Rate: 88 bpm RR Interval: 677 msec MI Interval: 0 msec QRS Duration: 99 msec QT Interval: 394 msec QTC Interval: 440 msec P-R-T Sevier: 0 - 51 - -10 degrees IMPRESSION: ATRIAL FIBRILLATION INCOMPLETE RIGHT BUNDLE BRANCH BLOCK Electronically Signed By: Carlos Eduardo Hoyt MD, [facility] Brando Banks MD ECG ORDERABLES Final Result [facility] * XR Chest 1 Vw Portable (10/03/2024 1:04 AM CDT) Anatomical Region Laterality Modality Body, Chest N/A Computed Radiogr aphy 10/03/2024 6:57 AM CDT Impressions 10/03/2024 6:57 AM CDT 1. Interval placement of left internal jugular central venous catheter with tip in the mid IVC. 2. Otherwise no significant change from prior exam. Electronically signed by: Alex Gar M.D. Narrative 10/03/2024 6:57 AM CDT EXAMINATION: XR CHEST 1 VIEW HISTORY: Line placement. COMPARISON: 10/02/2024 FINDINGS: A left atrial appendage device remains in place. A left internal jugular approach central venous catheter is in place with tip in the mid IVC. The heart remains enlarged. Pulmonary vascularity remains indistinct. Lung volumes are low, which exaggerated bronchovascular markings. No airspace disease. Aorta tortuous with calcifications. Degenerative changes present in the spine and both shoulders. Procedure Note Alex Gar III, MD - 10/03/2024 EXAMINATION: XR CHEST 1 VIEW HISTORY: Line placement. COMPARISON: 10/02/2024 FINDINGS: A left atrial appendage device remains in place. A left internal jugular approach central venous catheter is in place with tip in the mid IVC. The heart remains enlarged. Pulmonary vascularity remains indistinct. Lung volumes are low, which exaggerated bronchovascular markings. No airspace disease. Aorta tortuous with calcifications. Degenerative changes present in the spine and both shoulders. IMPRESSION: 1. Interval placement of left internal jugular central venous catheter with tip in the mid IVC. 2. Otherwise no significant change from prior exam. Electronically signed by: Alex Gar M.D. us Ana Paula PERRY IMG XR PROCEDURES Final Result * MI INSJ NON-TUNNELED CENTRAL VENOUS CATH AGE 5 YR/> (10/03/2024 1:00 AM CDT) Narrative Hakan Lake NP - 10/03/2024 1:00 AM CDT Hakan Lake NP 10/03/2024 2:23 AM Central Line Insertion Date/Time: 10/03/2024 1:00 AM Performed by: Hakan Lake NP Authorized by: Hakan Lake NP Logan Protocol: RN Notified of Procedure: yes Informed consent: Risks, benefits, alternatives discussed and patient/patient care representative/guardian agrees and accepts Patient's stated name/ matches armband: Yes Allergies confirmed: yes Consent form signed, dated, timed; matches correct patient, intended procedure and site: No consent form due to emergent status (Verbal consent obtained at bedside, patient agrees to procedure but unable to sign due to rapid deterioration) Imaging: N/a Lab/Diag test results: N/a Supplies, devices and special equipment are available: yes Site/side marked: yes Immediately prior to the procedure a time out was called: a verbal verification by the procedure participants confirmed correct patient identity, correct site/side marked and visible (if applicable); agreement on procedure to be done; and correct patient positioning Have non- routine considerations been assessed?: Yes Indications: Administer vasoactive medications Anesthesia (see MAR for exact dosage) Anesthesia method: Local infiltration Local anesthetic: Lidocaine 1% Patient position: Trendelenburg Skin preparation: Skin prepped with 2% chlorhexidine Provider preparation: Cap, full body drape, gloves, gown, handwashing and mask Location: Left internal jugular Technique: Landmarks identified Ultrasound guidance: Pre-procedure diagnostic and real-time needle guidance Assessment: Blood return through all ports, free fluid flow and placement verified by x-ray Catheter type: Triple lumen Catheter size: 7 Fr Needle inserted, vein idenitified then guidewire inserted easily into vein: Yes Number of attempts: 1 Successful placement: Yes Catheter secured at (cm): 20 Catheter length (cm): 20 Line securement: Line sutured and dressing applied Patient tolerance: Patient tolerated the procedure well with no immediate complications Post Procedure Debrief: All guidewires, needles, sponges or other items are accounted for: yes Any special post procedure monitoring, testing or other considerations: n/a All specimens identified, labeled and matched to patient identification: n/a Responsible democrat for transporting specimen(s) to lab determined: n/a I personally preformed the above procedure which is separate to my critical care time. us Hakan Jaycob Aleksandra SEMIAUTOMATIC STITCHER OPERATOR IN CLINIC/BEDSIDE ORDER ESTRELLITA Final Result * (ABNORMAL) Lactate (10/03/2024 12:53 AM CDT) Lactate 5.9(C) 0.7 - 2.0 mmol/L Comment:Critical results hiwot led to and read back by Gabriella Horner on 10/03/2024 01:31:59 CDT to Piper Bucio Blood 10/03/2024 12:5 3 AM CDT 10/03/2024 1:26 AM CDT Brando Banks MD LAB BLOOD ORDERABLES Final R esult MARLENE [address] Department [place] [address] * eGFR (10/03/2024 12:53 AM CDT) eGFR 62 >=60 mL/min/1. 73 m2 Comment: Interpretive Data [...] interpretive data was last reviewed 2020. Blood 10/03/2024 12:5 3 AM CDT 10/03/2024 1:29 AM CDT Brando Banks MD LAB BLOOD ORDERABLES Final R esult [facility] [address] Department [place] [address] * (ABNORMAL) Differential, auto (10/03/2024 12:53 AM CDT) Neutrophil abs 6.51(H) 1.50 - 6.50 K/cumm Imm gran abs 0.25(H) 0.00 - 0.10 K/cumm [facility] Lymphocyte abs 1.38 0.80 - 3.30 K/cumm [facility] Monocyte abs 1.03(H) 0.20 - 0.80 K/cumm [facility] Eosinophil abs 0.01 0.00 - 0.50 K/cumm [facility] Basophil abs 0.03 0.00 - 0.10 K/cumm [facility] Neutrophil pct 70.7 % [facility] Comment: Interpretive Data Percent cell count reference ranges are not reported, since discordance with absolute values may lead to misinterpretation of CBC data. Current Interpretive Data was last revised on 2017. Imm gran pct 2.7 % [facility] Comment: Interpretive Data Percent cell count reference ranges are not reported, since discordance with absolute values may lead to misinterpretation of CBC data. Current Interpretive Data was last revised on 2017. Lymphocyte pct 15.0 % [facility] Comment: Interpretive Data Percent cell count reference ranges are not reported, since discordance with absolute values may lead to misinterpretation of CBC data. Current Interpretive Data was last revised on 2017. Monocyte pct 11.2 % [facility] Comment: Interpretive Data Percent cell count reference ranges are not reported, since discordance with absolute values may lead to misinterpretation of CBC data. Current Interpretive Data was last revised on 2017. Eosinophil pct 0.1 % [facility] Comment: Interpretive Data Percent cell count reference ranges are not reported, since discordance with absolute values may lead to misinterpretation of CBC data. Current Interpretive Data was last revised on 2017. Basophil pct 0.3 % [facility] Comment: Interpretive Data Percent cell count reference ranges are not reported, since discordance with absolute values may lead to misinterpretation of CBC data. Current Interpretive Data was last revised on 2017. Blood 10/03/2024 12:5 3 AM CDT 10/03/2024 1:27 AM CDT Brando Banks MD LAB BLOOD ORDERABLES Final R esult Performing Organization Address City/[facility] Co de Phone Number MARLENE [address] [place] [address] * (ABNORMAL) CBC with auto differential (10/03/2024 12:53 AM CDT) WBC 9.21 3.80 - 9.90 K/cumm Hgb 8.4(L) 13.0 - 17.5 g/dL [facility] Hct 29.6(L) 38.9 - 50.3 % [facility] Plt 142(L) 150 - 400 K/cumm [facility] MPV 9.5 9.1 - 12.3 fL [facility] RBC 3.33(L) 4.30 - 5.80 M/cumm [facility] MCV 88.9 81.3 - 96.4 fL [facility] MCH 25.2(L) 27.1 - 33.3 pg [facility] MCHC 28.4(L) 32.3 - 35.7 g/dL [facility] RDW CV 14.6 11.1 - 14.9 % [facility] RDW SD 47.2 35.7 - 48.1 fL [facility] NRBC abs 0.00 0.00 - 0.01 K/cumm [facility] Blood 10/03/2024 12:5 3 AM CDT 10/03/2024 1:27 AM CDT Brando Banks MD LAB BLOOD ORDERABLES Final R esult Performing Organization Address City/[facility]/ZIP Co de Phone Number MARLENE [address] Department [employer] [place], [place] [id number] * (ABNORMAL) Protime-INR (10/03/2024 12:53 AM CDT) PT 15.9(H) 10.2 - 13.5 sec INR 1.42(H) 0.90 - 1.20 MARLENE Comment: Interpretive data Oral anticoagulant therapeutic ranges: Venous thromboembolism prophylaxis or treatment: 2.0-3.0 CARDIOLOGY Standard range: 2.0-3.0 High-intensity range: 2.5-3.5 Refer to indication-specific guidelines for appropriate target ranges for prosthetic heart valve replacement. Current interpretive data was last revised on 2019. Blood 10/03/2024 12:5 3 AM CDT 10/03/2024 1:28 AM CDT Brando Banks MD LAB BLOOD ORDERABLES Final R esult Performing Organization Address [facility] Co de Phone Number MARLENE [address] [facility] [place] [address] * Fibrinogen (10/03/2024 12:53 AM CDT) Fibrinogen 216 170 - 400 mg/dL Blood 10/03/2024 12:5 3 AM CDT 10/03/2024 1:28 AM CDT Brando Banks MD LAB BLOOD ORDERABLES Final R esult Performing Organization Address [facility] de Phone Number [facility] [address] [facility] [place] [address] * Type and screen (10/03/2024 12:53 AM CDT) ABO Rh O Positive Kasey, indirect Negative [facility] Blood 10/03/2024 12:5 3 AM CDT 10/03/2024 1:28 AM CDT Narrative MARLENE - 10/03/2024 2:06 AM CDT Has the patient had Daratumumab or Isatuximab in the past 6 months?->Unknown us Brando Banks MD LAB BLOOD BANK TEST ORDERABL ES Final Result Performing Organization Address [facility] de Phone Number MARLENE [address] [place] [place] [address] * (ABNORMAL) Phosphorus (10/03/2024 12:53 AM CDT) Pathologist [facility] Phosphorus, pl 5.1(H) 2.3 - 4.5 mg/dL Blood 10/03/2024 12:5 3 AM CDT 10/03/2024 1:26 AM CDT Brando Banks MD LAB BLOOD ORDERABLES Final R esult Performing Organization Address [facility] de Phone Number MARLENE [address]OW[address] [facility] [place] [address] * Magnesium (10/03/2024 12:53 AM CDT) [facility] Magnesium 1.7 1.4 - 2.5 mg/dL Blood 10/03/2024 12:5 3 AM CDT 10/03/2024 1:26 AM CDT Brando Banks MD LAB BLOOD ORDERABLES Final R esult Performing Organization Address [facility] de Phone Number MARLENE [address]OW[address] [place] [address] * (ABNORMAL) Blood gas, arterial (10/03/2024 12:53 AM CDT) Pathologist [facility] pH, Art 7.32(L) 7.35 - 7.45 PCO2, Arterial 35 35 - 45 mmHg [facility] PO2, Arterial 98 83 - 108 mmHg [facility] HCO3 Art (Calculated) 18(L) 20 - 30 mmol/L [facility] BE, art -7 mmol/L [facility] Comment: Interpretive Data No Reference Range Established Current Interpretive Data was last revised on 2017 O2 Sat Art (Measured) 94 90 - 95 % [facility] Blood 10/03/2024 12:5 3 AM CDT 10/03/2024 1:26 AM CDT us Brando Banks MD LAB BLOOD ORDER[place] [address] [address] Department [place] [address] * (ABNORMAL) Comprehensive metabolic panel (10/03/2024 12:53 AM CDT) Sodium 132(L) 135 - 145 mmol/L Potassium, pl 4.8 3.3 - 4.9 mmol/L [facility] Chloride 96(L) 97 - 110 mmol/L [facility] CO2 17(L) 22 - 32 mmol/L [facility] Anion gap 19(H) 2 - 15 mmol/L [facility] BUN 15 6 - 25 mg/dL [facility] Creatinine 1.14 0.80 - 1.30 mg/dL [facility] Glucose 199 70 - 199 mg/dL [facility] Comment: Interpretive Data Fasting glucose >/= 126 [...] interpretive data was last revised 2022. Calcium 8.3(L) 8.5 - 10.3 mg/dL [facility] Bilirubin, total 0.7 0.1 - 1.2 mg/dL [facility] Protein, pl 5.6(L) 6.5 - 8.5 g/dL [facility] Albumin 3.5 3.5 - 5.0 g/dL [facility] Alk phos 74 40 - 130 Units/L [facility] ALT 8 7 - 55 Units/L [facility] AST 24 10 - 50 Units/L [facility] Blood 10/03/2024 12:5 3 AM CDT 10/03/2024 1:26 AM CDT Brando Banks MD LAB BLOOD ORDERABLES Final R esult Performing Organization Address City/[facility]/ZIP Co de Phone Number MARLENE [address]OW[address] [facility] [place] [address] * Prepare RBC: 2 Units (10/03/2024 12:42 AM CDT) Product code [id number] Unit Number [id number] 0-[id number] [facility] Product Blood Type OPOS [facility] Dispense Status RETURNED [facility] Product code [id number] [facility] Unit Number [id number] [id number] [facility] Product Blood Type OPOS [facility] CH Dispense Status RETURNED [facility] Blood 10/03/2024 12:4 2 AM CDT Narrative [facility] - 10/07/2024 3:16 AM CDT Are special requirements needed? (All products are leukoreduced and CMV- safe)- >No Date required:-[id number] LRRBC # of [id number] Reasons:-Hemorrhagic shock/Life-threatening bleeding} Brando Banks MD BLOOD BANK PRODUCT ORDERABLE S Final Result Performing Organization Address [facility] de Phone Number MARLENE FOWLER [address] [email or web address] [address] * (ABNORMAL) POC Blood Gas and Chemistries, Arterial - (10/03/2024 12:38 AM CDT) pH, Art POC 7.31(L) 7.35 - 7.45 pCO2, Art POC 33(L) 35 - 45 mmHg [facility] pO2, Art POC 88 83 - 108 mmHg [facility] Na, POC 131(L) 135 - 145 mmol/L [facility] K POC 5.0(H) 3.3 - 4.9 mmol/L [facility] Comment: Interpretive Data This method is not able to assess for hemolysis, which may falsely increase potassium concentrations. If further testing is needed to evaluate this result, consider in-laboratory plasma potassium. Current Interpretive Data was last revised on 2021. Ionized Ca, POC 4.59 4.50 - 5.10 mg/dL [facility] Glucose, POC 204(H) 70 - 199 mg/dL [facility] Lactate POC 5.8(C) 0.7 - 2.0 mmol/L [facility] O2Hb, Art POC 96.5(H) 90.0 - 95.0 % [facility] SO2 (raissa) arterial 96(H) 90 - 95 % [facility] Total CO2, Art POC 18(L) 21 - 30 mmol/L [facility] BE, art, POC -9 mmol/L [facility] HCO3, Art POC 18(L) 20 - 30 mmol/L [facility] Hct, POC 26.0(L) 38.9 - 50.3 % [facility] Total Hb, POC 8.8(L) 13.0 - 17.5 g/dL [facility] Blood 10/03/2024 12:3 8 AM CDT 10/03/2024 12:38 AM CDT Bishnu Hwang MD LAB POCT ORDERABLES - DEVICE Fi nal Result Performing Organization Address City/[facility] Co de Phone Number MARLENE MALCOLM [address] Department [employer] [place], [place] [id number] * (ABNORMAL) POCT glucose (10/03/2024 12:07 AM CDT) Glucose, POC 217(H) 70 - 199 mg/dL Blood 10/03/2024 12:0 7 AM CDT 10/03/2024 12:07 AM CDT Bishnu Hwang MD LAB POCT ORDERABLES - DEVICE Fi nal Result Performing Organization Address City/[facility] Co de Phone Number ADÁNWARREN FOWLER [address] [place] [address] * ECG 12 lead (10/03/2024 12:02 AM CDT) 10/03/2024 12:0 2 AM CDT Narrative [facility] - 10/04/2024 7:38 AM CDT Vent Rate: 121 bpm RR Interval: 493 msec MI Interval: 0 msec QRS Duration: 96 msec QT Interval: 343 msec QTC Interval: 415 msec P-R-T Sevier: 0 - 90 - -6 degrees IMPRESSION: ATRIAL FIBRILLATION WITH RAPID VENTRICULAR RESPONSE INCOMPLETE RIGHT BUNDLE BRANCH BLOCK NONSPECIFIC ST \T\ T-WAVE ABNORMALITY Electronically Signed By: Carlos Eduardo Hoyt MD, [facility] us Bishnu Hwang MD ECG ORDERABLES Final Result [facility] * X-ray chest 1 view (Portable) (10/02/2024 2:36 PM CDT) Anatomical Region Laterality Modality Body, Chest N/A Computed Radiogr aphy 10/02/2024 2:39 PM CDT Impressions 10/02/2024 2:39 PM CDT Mild vascular congestion. Electronically signed by: Aimee Navarrete M.D. Narrative 10/02/2024 2:39 PM CDT EXAMINATION: XR CHEST 1 VIEW HISTORY: The patient is an 89-year-old male who has had placement of a cavernous device. Comparison is made with the previous study dated 01/17/2024. TECHNIQUE: AP portable view of the chest. FINDINGS: TAVR device in place. Cardiomegaly with aortic atherosclerosis. Mild degree of vascular congestion. No focal infiltrate. Procedure Note Aimee Navarrete MD - 10/02/2024 EXAMINATION: XR CHEST 1 VIEW HISTORY: The patient is an 89-year-old male who has had placement of a cavernous device. Comparison is made with the previous study dated 01/17/2024. TECHNIQUE: AP portable view of the chest. FINDINGS: TAVR device in place. Cardiomegaly with aortic atherosclerosis. Mild degree of vascular congestion. No focal infiltrate. IMPRESSION: Mild vascular congestion. Electronically signed by: Aimee Navarrete M.D. us Brayan Arevalo NP IMG XR PROCEDURES Final Resu lt * TRANSESOPHAGEAL ECHO (CJ) W DOPPLER/CF WO CONTRAST (10/02/2024 11:03 AM CDT) Anatomical Region Laterality Modality Ultrasound Narrative 10/02/2024 12:01 PM CDT Table formatting from the original result was not included. PROCEDURE Transesophageal ECHO for left atrial appendage closure INDICATION Atrial fibrillation and [id number] score > 2 with hx of recurrent bleeding and couldn't tolerate superintendent terminal anticoagulation PROCEDURE DETAILS Patient underwent general anesthesia by the anesthesia staff. CJ probe was inserted. There was no evidence of clot in LEIGH. Baseline CJ measurements were taken and was fit for device size 25. Measurement CJ 0 CJ 45 CJ 90 CJ 135 LEIGH orifice 27 28 22 22 Landing zone 17 19 21 17 Depth Trans-septal puncture was performed with echo guidance with easy entry into the left atrium mid and inf position. The sheath was advanced under ECHO guidance. Amulet device was loaded and then deployed under echo guidance. Final images showed good device position and no evidence of color leak around it. Device remained stable after released. Pulmonary vein flow & MR function was not impeded. There is no pericardial effusion. Impression: Transesophageal ECHO for successful left atrial appendage occlusion using 25 mm amulet device without in lab complications Pardeep Whitten MD us Bishnu Hwang MD CV ECHO PROCEDURES Final Result * PERC LEIGH CLOSURE W/IMPLANT (WATCHMAN) [id number] (10/02/2024 10:59 AM CDT) Anatomical Region Laterality Modality X-Ray Angiograph y Narrative 10/02/2024 11:20 AM CDT Procedures HISTORY 89 old male with a history including atrial fibrillation, with high risk of bleeding due to prior GI bleed. Shaggy Vasc score was 4 . The patient presents for consideration of left atrial appendage closure. Informed consent was obtained after detailed discussion with the patient about the procedures, risks, benefits, and alternatives. The patient consented to open-heart surgery should device placement fail. The patient was brought to the cath laboratory technician in a fasting state. A time-out was performed. The patient was prepped and draped in the usual sterile fashion. General anesthesia was administered. The patient received endotracheal intubation. OPERATORS: Bishnu Hwang MD, Aubrey Eduardo MD VASCULAR ACCESS The right femoral vein was accessed using the modified Seldinger technique. An 8 Cypriot sheath was placed .The patient was kept therapeutically anticoagulated throughout the case. Transseptal puncture was made to gain access to the left atrium using a Kingmaker needle system. Transseptal catheterization was performed and guided by CJ see imaging note. The transseptal puncture was performed mid and inferior position. The wire was advanced through the left atrium and a double curved delivery sheath was placed over the wire. An Amplatzer delivery catheter TorqVue was advanced into the left atrial appendage. Appendage was determined to be appropriate size for 25 mm left atrial appendage occluder device as suggested by echocardiographic data. LA pressure was 15 mm Hg The Amplatzer Amulet 25 mm occluder was inserted and advanced into the left atrial appendage. The device was deployed in position within the left atrial appendage. CLOSE criteria was used to confirm successful device deployment. The device position and compression ratio was verified by transesophageal echo. The compression ratio was acceptable. Tug test demonstrated adequate resistance in spring back to the original position. No LEIGH leaks were present after deployment. Disc was flat with the mitral annulus . The device was released and stable.The disk was below the ridge Protamine administered. Catheter removed and aemostasis achieved using a purse string suture after removal of all catheters, wires, and sheaths. FINAL INTERPRETATION Successful percutaneous closure of the left atrial appendage with a 25 mm Amplatzer Amulet occluder device without in lab complications. Bishnu Hwang MD Bishnu Hwang MD CV ELECTROPHYSIOLOGY PROCS Qing l Result * (ABNORMAL) POC Activated Clotting Time, High Range (10/02/2024 10:51 AM CDT) ACT 365(H) 87 - 138 sec Blood 10/02/2024 10:5 1 AM CDT 10/02/2024 10:51 AM CDT Bishnu Hwang MD LAB BLOOD ORDERABLES Final Resu lt [address] [address] [place] [address] * MI AN ELECTIVE ENDOTRACHEAL AIRWAY (10/02/2024 10:24 AM CDT) Narrative Hector Griffith AA - 10/02/2024 10:24 AM CDT Hector Griffith AA 10/02/2024 10:25 AM Airway Patient location: OR Urgency: elective Date/time: 10/02/2024 10:20 AM Indications for airway management: anesthesia Difficult airway: no Staff: Supervising provider: Renate Barrera DO Placed by: AA: Hector Griffith AA Emergent airway documentation: Risks and benefits discussed: yes Consent obtained: yes Consent given by: patient Airway prep: Preoxygenated: yes Patient position: sniffing Mask difficulty assessment: 1 - vent by mask Spontaneous ventilation during airway: absent Sedation level during airway: GA Final airway details: Final airway type: endotracheal airway Tube type: ETT ETT size: 7.5 mm Cuffed: yes Technique used for successful ETT placement: video laryngoscopy Devices/Methods used in placement: stylet Insertion site: oral Blade type: Irene Blade size: 3 Cormack-Lehane (video): grade I - full view of glottis Cuff inflated with: air ETT to lips: 23 cm Placement verified by: auscultation and CO2 detection Airway secured with: silk tape Number of attempts: 1 Additional comments: Atraumatic. Teeth as before. us Renate Barrera DO ANESTHESIA ORDERABLES Final Result * Potassium, whole blood (10/02/2024 7:50 AM CDT) Potassium, bld 4.3 3.3 - 4.9 mmol/L Comment: Interpretive Data This method is not able to assess for hemolysis, which may falsely increase potassium concentrations. If further testing is needed to evaluate this result, consider in-laboratory plasma potassium. Current Interpretive Data was last revised on 2021. Blood 10/02/2024 7:50 AM CDT 10/02/2024 7:56 AM CDT us Jerrica Quintero SEMIAUTOMATIC STITCHER OPERATOR LAB BLOOD ORDERABLES Final Res ult [facility]E [id number] Department [place] [address] * Check Sample (10/02/2024 7:38 AM CDT) Pathologist [facility] ABO Rh O Positive [facility] OTHER 10/02/2024 7:38 AM CDT 10/02/2024 7:46 AM CDT Bishnu Hwang MD LAB BLOOD ORDERABLES Final Resu lt Performing Organization Address [facility] de Phone Number [facility]LENE [address] Department [place] [address] CH * ECG 12 lead (09/24/2024 10:59 AM CDT) 09/24/2024 10:5 9 AM CDT Narrative [facility] - 09/24/2024 12:47 PM CDT Vent Rate: 78 bpm RR Interval: 763 msec MI Interval: 0 msec QRS Duration: 96 msec QT Interval: 369 msec QTC Interval: 402 msec P-R-T Sevier: 0 - 67 - 16 degrees IMPRESSION: ATRIAL FIBRILLATION LOW QRS VOLTAGE IN PRECORDIAL LEADS INCOMPLETE RIGHT BUNDLE BRANCH BLOCK ABNORMAL RHYTHM ECG NO CHANGE FROM PREVIOUS TRACING NOTED Electronically Signed By: Bishnu Hwang MD Bishnu Hwang MD ECG ORDERABLES Final Result Performing Organization Address [facility] de Phone Number [facility] [employer] [facility] * eGFR (09/24/2024 10:31 AM CDT) Pathologist [facility] eGFR 85 >=60 mL/min/1. 73 m2 Comment: Interpretive Data [...] interpretive data was last reviewed 2020. Blood 09/24/2024 10:3 1 AM CDT 09/24/2024 11:05 AM CDT us Bishnu Hwang MD LAB BLOOD ORDERABLES Final Resu lt [address] Department [place] [address] * Differential, auto (09/24/2024 10:31 AM CDT) Neutrophil abs 3.85 1.50 - 6.50 K/cumm Imm gran abs 0.05 0.00 - 0.10 K/cumm [facility] Lymphocyte abs 0.91 0.80 - 3.30 K/cumm [facility] Monocyte abs 0.53 0.20 - 0.80 K/cumm [facility] Eosinophil abs 0.41 0.00 - 0.50 K/cumm [facility] Basophil abs 0.06 0.00 - 0.10 K/cumm [facility] Neutrophil pct 66.2 % [facility] Comment: Interpretive Data Percent cell count reference ranges are not reported, since discordance with absolute values may lead to misinterpretation of CBC data. Current Interpretive Data was last revised on 2017. Imm gran pct 0.9 % MARLENE Comment: Interpretive Data Percent cell count reference ranges are not reported, since discordance with absolute values may lead to misinterpretation of CBC data. Current Interpretive Data was last revised on 2017. Lymphocyte pct 15.7 % MAR[facility]E Comment: Interpretive Data Percent cell count reference ranges are not reported, since discordance with absolute values may lead to misinterpretation of CBC data. Current Interpretive Data was last revised on 2017. Monocyte pct 9.1 % [facility] Comment: Interpretive Data Percent cell count reference ranges are not reported, since discordance with absolute values may lead to misinterpretation of CBC data. Current Interpretive Data was last revised on 2017. Eosinophil pct 7.1 % [facility] Comment: Interpretive Data Percent cell count reference ranges are not reported, since discordance with absolute values may lead to misinterpretation of CBC data. Current Interpretive Data was last revised on 2017. Basophil pct 1.0 % [facility] Comment: Interpretive Data Percent cell count reference ranges are not reported, since discordance with absolute values may lead to misinterpretation of CBC data. Current Interpretive Data was last revised on 2017. Blood 09/24/2024 10:3 1 AM CDT 09/24/2024 11:05 AM CDT us Bishnu Hwang MD LAB BLOOD ORDERABLES Final Resu lt [facility] [address] Department [place] [address] * (ABNORMAL) CBC with auto differential (09/24/2024 10:31 AM CDT) WBC 5.81 3.80 - 9.90 K/cumm Hgb 9.9(L) 13.0 - 17.5 g/dL [facility] Hct 33.7(L) 38.9 - 50.3 % [facility] Plt 184 150 - 400 K/cumm [facility] MPV 9.3 9.1 - 12.3 fL [facility] RBC 3.73(L) 4.30 - 5.80 M/cumm [facility] MCV 90.3 81.3 - 96.4 fL [facility] MCH 26.5(L) 27.1 - 33.3 pg [facility] MCHC 29.4(L) 32.3 - 35.7 g/dL [facility] RDW CV 14.3 11.1 - 14.9 % [facility] RDW SD 47.4 35.7 - 48.1 fL [facility] NRBC abs 0.00 0.00 - 0.01 K/cumm [facility] Blood 09/24/2024 10:3 1 AM CDT 09/24/2024 11:05 AM CDT Bishnu Hwang MD LAB BLOOD ORDERABLES Final Resu lt Performing Organization Address [facility] Co de Phone Number [address]LENE [address] [facility] [place] [address] * aPTT (09/24/2024 10:31 AM CDT) aPTT 34 26 - 38 sec Comment: Interpretive Data Heparin therapeutic range: 66.0 - 100.0 seconds. Range based on correlation with therapeutic heparin activity range of 0.3 - 0.7 Units/mL. Current interpretive data was last revised on 2022. Blood 09/24/2024 10:3 1 AM CDT 09/24/2024 11:05 AM CDT Bishnu Hwang MD LAB BLOOD ORDERABLES Final Resu lt Performing Organization Address [facility] de Phone Number MARLENE [address] [facility] [place] [address] * (ABNORMAL) Protime-INR (09/24/2024 10:31 AM CDT) PT 16.0(H) 10.2 - 13.5 sec INR 1.43(H) 0.90 - 1.20 MARLENE Comment: Interpretive data Oral anticoagulant therapeutic ranges: Venous thromboembolism prophylaxis or treatment: 2.0-3.0 CARDIOLOGY Standard range: 2.0-3.0 High-intensity range: 2.5-3.5 Refer to indication-specific guidelines for appropriate target ranges for prosthetic heart valve replacement. Current interpretive data was last revised on 2019. Blood 09/24/2024 10:3 1 AM CDT 09/24/2024 11:05 AM CDT Result [facility] Bishnu Hwang MD LAB BLOOD ORDERABLES Final Resu lt Performing Organization Address [facility] Co de Phone Number MARLENE FOW[address]ER [address] Department [place] [address] * Type and screen (09/24/2024 10:31 AM CDT) ABO Rh O Positive Kasey, indirect Negative [facility] Blood 09/24/2024 10:3 1 AM CDT 09/24/2024 11:17 AM CDT Narrative [facility] - 09/24/2024 12:04 PM CDT Has the patient had Daratumumab or Isatuximab in the past 6 months?->Unknown Bishnu Hwang MD LAB BLOOD BANK TEST ORDERABLES Final Result Performing Organization Address [facility] Co de Phone Number MARLENE FOWLER [address] Department [place] [address] * (ABNORMAL) Comprehensive metabolic panel (09/24/2024 10:31 AM CDT) Sodium 133(L) 135 - 145 mmol/L Potassium, pl 4.7 3.3 - 4.9 mmol/L [facility] Chloride 98 97 - 110 mmol/L [facility] CO2 24 22 - 32 mmol/L [facility] Anion gap 11 2 - 15 mmol/L [facility] BUN 9 6 - 25 mg/dL [facility] Creatinine 0.83 0.80 - 1.30 mg/dL [facility] Glucose 107 70 - 199 mg/dL [facility] Comment: Interpretive Data Fasting glucose >/= 126 [...] interpretive data was last revised 2022. Calcium 9.2 8.5 - 10.3 mg/dL [facility] Bilirubin, total 0.5 0.1 - 1.2 mg/dL [facility] Protein, pl 6.8 6.5 - 8.5 g/dL [facility] Albumin 4.0 3.5 - 5.0 g/dL [facility] Alk phos 96 40 - 130 Units/L [facility] ALT 9 7 - 55 Units/L [facility] AST 16 10 - 50 Units/L [facility] Blood 09/24/2024 10:3 1 AM CDT 09/24/2024 11:05 AM CDT us Bishnu Hwang MD LAB BLOOD ORDERABLES Final Resu lt [facility]E [address] Department [place] [address] * CT Heart Morphology W Contrast (09/19/2024 2:17 PM CDT) Anatomical Region Laterality Modality Chest N/A Computed Tomogra phy 09/19/2024 3:26 PM CDT Impressions 09/19/2024 3:46 PM CDT 1. Left atrial appendage measurements for placement of occlusion device as described. 2. No evidence of left atrial appendage thrombus. Dictated by: Domingo Haley M.D. The radiology attending physician has personally reviewed this study, and had reviewed and/or edited this written report and agrees with it. Electronically signed by: Mehdi Biggs M.D. Narrative 09/19/2024 3:46 PM CDT HISTORY: 89-year-old with history of atrial fibrillation. Measurements in preparation for left atrial appendage occlusion device placement. COMPARISON: CT chest dated 01/11/2024 TECHNIQUE: Heart CT performed during administration of 108 mL of Optiray 350, intravenously per pulmonary vein protocol. Images were transferred to an independent workstation for additional 3D post-processing. FINDINGS: Left atrial appendage depth: 25 mm Left atrial appendage length: 47 mm Left atrial appendage ostium: Area 597 mm squared, Circumference 9.0 cm, Diameter 30 x 28 mm. Left atrial appendage shape: Chicken wing No evidence of left atrial appendage thrombus. Left atrial diameter (atrial diastole): 50 mm Interatrial septum measures 1 mm thick and is free of device or thrombus. Esophagus lies immediately posterior to the Left Inferior pulmonary vein. Other findings: Moderate left and small right pleural effusions with resultant atelectasis. There are bilateral calcified and non calcified pleural plaques suggestive of prior asbestos exposure. Heart is normal in size. There is severe calcified atherosclerosis of the left main, left circumflex, left anterior descending coronary arteries. There is mild calcified atherosclerosis of the right coronary artery. There is mild calcification of the aortic valve. There is moderate atherosclerosis of the thoracic aorta. Procedure Note Mehdi Biggs MD - 09/19/2024 HISTORY: 89-year-old with history of atrial fibrillation. Measurements in preparation for left atrial appendage occlusion device placement. COMPARISON: CT chest dated 01/11/2024 TECHNIQUE: Heart CT performed during administration of 108 mL of Optiray 350, intravenously per pulmonary vein protocol. Images were transferred to an independent workstation for additional 3D post-processing. FINDINGS: Left atrial appendage depth: 25 mm Left atrial appendage length: 47 mm Left atrial appendage ostium: Area 597 mm squared, Circumference 9.0 cm, Diameter 30 x 28 mm. Left atrial appendage shape: Chicken wing No evidence of left atrial appendage thrombus. Left atrial diameter (atrial diastole): 50 mm Interatrial septum measures 1 mm thick and is free of device or thrombus. Esophagus lies immediately posterior to the Left Inferior pulmonary vein. Other findings: Moderate left and small right pleural effusions with resultant atelectasis. There are bilateral calcified and non calcified pleural plaques suggestive of prior asbestos exposure. Heart is normal in size. There is severe calcified atherosclerosis of the left main, left circumflex, left anterior descending coronary arteries. There is mild calcified atherosclerosis of the right coronary artery. There is mild calcification of the aortic valve. There is moderate atherosclerosis of the thoracic aorta. IMPRESSION: 1. Left atrial appendage measurements for placement of occlusion device as described. 2. No evidence of left atrial appendage thrombus. Dictated by: Domingo Haley M.D. The radiology attending physician has personally reviewed this study, and had reviewed and/or edited this written report and agrees with it. Electronically signed by: Mehdi Biggs M.D. us Bishnu R. Eri MD IMG CT PROCEDURES Final Result * MI ARTHROCENTESIS ASPIR&/INJ MAJOR JT/BURSA W/O US (09/17/2024 10:15 AM CDT) Macey Oreilly PA - 09/17/2024 10:15 AM CDT Macey Cota PA 09/17/2024 12:45 PM Large Joint (Hip, Knee, Shoulder) Injection: [...] procedure well with no immediate complications Result [facility] Macey PERYR IN CLINIC/BEDSIDE ORDER ESTRELLITA Final Result * MI ARTHROCENTESIS ASPIR&/INJ MAJOR JT/BURSA W/O US (09/17/2024 10:15 AM CDT) Macey Oreilly PA - 09/17/2024 10:15 AM CDT Macey Cota PA 09/17/2024 12:45 PM Large Joint (Hip, Knee, Shoulder) Injection: L knee Performed by: Macey Cota PA Authorized by: Macey Cota PA Large Joint Injection/Aspiration: Consent Given by: Patient Site marked: the procedure site was marked Verbal consent obtained: Yes Supporting Documentation: Indications: Pain Procedure Details: Location: Knee Site: L knee Prep: patient was prepped and draped in usual sterile fashion Needle Size: 22 G Approach: Anterolateral Ultrasound guided: No Fluroscopic guidance: No Medications: 60 mg hyaluronate sodium, stabilized 60 mg/3 mL Patient tolerance: Patient tolerated the procedure well with no immediate complications us Macey PERRY IN CLINIC/BEDSIDE ORDER ESTRELLITA Final Result * EGD (09/13/2024 9:57 AM CDT) Anatomical Region Laterality Modality Other Narrative Procedure Note Shahram Hathaway MD - 09/13/2024 9:57 AM CDT [facility] Patient Name: Dilan Burr Procedure Date: 09/13/2024 9:57 AM Date of : 1935 Admit Type: Outpatient Age: 89 Gender: Male Attending MD: Shahram Hathaway M.D., Room: [facility] ENDOSCOPY ROOM 1 Note Status: Finalized Patient Profile: This is an 89 year old male. With a history ofanemia. No overt GI bleeding. Patient is on high-doseEliquis and Plavix. There was concern about blood loss. EGD for evaluation. He takes Protonix once daily. 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 Providers: Shahram Hathaway M.D. Impression: - Normal examined duodenum. - Erythematous mucosa in the antrum likelynonspecific. - Normal esophagus. - No specimens collected. Recommendation: - Continue present medications. - Continue Protonix once daily Medicines: Monitored Anesthesia Care Complications: No immediate complications. Estimated Blood Loss: Estimated blood loss: none. Procedure: Pre-Anesthesia Assessment: - Prior to the procedure, a History and Physicalwas performed, and patient medications and allergieswere reviewed. The patient's tolerance of previous anesthesia was also reviewed. The risks andbenefits of the procedure and the sedation options and risks were discussed with the patient. All questions were answered, and informed consent was obtained. Prior Anticoagulants: The patient has taken noanticoagulant or antiplatelet agents. ASA Grade Assessment: Per anesthesia note and evaluation. After reviewing the risks and benefits, the patient was deemed in satisfactory condition to undergo the procedure. The benefits, risks, and alternatives to theprocedure and sedation were discussed and informed consentwas obtained. The scope was passed under direct vision. The Wide Endoscope [id number] wasintroduced through the mouth, and advanced to the second partof duodenum. The upper GI endoscopy was accomplished without difficulty. The patient tolerated the procedure well. Findings: The examined duodenum was normal. Blood and no bleeding noted in the upper GI system Diffuse mildly erythematous mucosa without bleeding was found in the gastric antrum likely nonspecific or mild gastropathy. Gastric bodyand fundus were normal. Retroflexion stomach in the gastric fundus and cardia normal. The examined esophagus was normal. The GE junction at 42 cm wasnormal Electronically signed by Shahram Hathaway M.D. Shahram Hathaway M.D. 09/13/2024 11:58:59 AM Number of Addenda: 0 Note Initiated On: 09/13/2024 9:57 AM Procedure Code(s): --- Professional --- 92319, Esophagogastroduodenoscopy, flexible, transoral; diagnostic, including collection of specimen(s) by brushing or washing, when performed (separate procedure) Diagnosis Code(s): --- Professional --- K31.89, Other diseases of stomach and duodenum D50.0, Iron deficiency anemia secondary to blood loss (chronic) CPT copyright 2022 [employer]. All rights reserved. The codes documented in this report are preliminary and upon hand drawer in reviewmay be revised to meet current compliance requirements. 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 ADVANCE DIRECTIVE 01/22/2024 11:35 AM Carol Ann ing Will * Full Code (Latest Code Status on File) Date Activated Date Inactivated Comments 10/03/2024 4:04 AM 10/06/2024 7:50 PM * Full Code Date Activated Date Inactivated Comments 09/13/2024 10:14 AM 09/13/2024 4:31 PM * Full Code Date Activated Date Inactivated Comments 09/13/2024 10:13 AM 09/13/2024 10:14 AM * Full Code Date Activated Date Inactivated Comments 06/23/2024 10:22 PM 06/25/2024 2:05 AM * LIMITED - No CPR Date Activated Date Inactivated Comments 06/23/2024 1:13 PM 06/23/2024 10:22 PM Question Answer Comments Provide aggressive medical m anagement before a full cardiopulmonary arrest occurs. Use antibiotics, IV Fluids, and medical treatment unless specifically selected below: No intubation Care Teams Powersaw Supervisor Relationship Specialty [place] [id number] [facility] [address] [place] [address] PCP - General Internal Medicine 08/05/24 Wilbert Bucio MD Consulting Physician Nephrology 01/06/21 Gabriel Hand MD [address] [place] [address] [place] [address] Consulting Physician Ophthalmology 01/06/21 Heron Wiggins MD [address] [place] [address] Consulting Physician Orthopedic Surgery 01/06/21 Jw Pascual MD [address] [place] [address] Cardiology 09/02/21
--- OUTSIDE RECORDS SUMMARY | 2024-10-14 13:58 | XMS_ITS | Clinical Summary ---
Author Organization [facility] Address [address] [place] [id number] Phone Care Team Providers Care Health And Safety Inspector Name Role Phone Antelmo Aguilar MD Primary Care Provider [phone] Allergies No known active allergies Medications loratadine [...] Last Done Comments COVID-19 Vaccine ( season) 2024 12/20/2020, 03/30/2020, 03/03/2020 Influenza Vaccine (#1) 2024 11/19/2020, 2017 Pneumococcal PPSV23/PCV13 65 + Years / Low and Medium Risk Completed 06/06/2018, 02/27/2017 Insurance [employer] Member Subscriber Plan / Payer (Ef fective 2020-Present) Name:Edison Burr Member ID:[id number] PPO Relation to Subscriber:Self Name:Edison Burr Subscriber ID:[id number] PPO Payer ID:[id number] (NAIC) Type:Not on file Address: [facility] [address] [place] [address] Care Teams Health And Safety Inspector Relationship Specialty Start Date End Date Antelmo Aguilar MD PCP - General Family Medicine 03/23/21
--- OUTSIDE RECORDS SUMMARY | 2024-10-14 13:58 | XMS_ITS | Patient Health Record ---
Author Organization [facility] Address [address] [place] [address] Care Team Providers Care Enterprise Account Executive Name Role Phone Antelmo Aguilar Primary Care Provider HITESH Severino Unavailable [phone] Allergies No Known Allergies Reason For Referral [...] 20 MG 1 tablet Orally Once a day; Duration: 30 day(s) Not-Taking Entresto 24-26 MG TAKE 1 TABLET BY TWICE DAILY; Duration: 30 Active Fluticasone Propionate 50 MCG/ACT 1 spray in each nostril Nasally Once a day Active Isosorbide Mononitrate ER 30 MG 1 tablet in the morning Orally Once a day; Duration: 90 days Active Sodium Chloride 1 GM as directed Orally Active Doxycycline Monohydrate 100 MG 1 capsule Orally Once a day; Duration: 10 days 03/10/2023 Active Atorvastatin Calcium 40 MG 1 tablet Oral ly Once a day; Duration: 30 days Active Aspirin 81 MG 1 tablet Orally Once a day; Duration: 30 day(s) Active Combigan 0.2-0.5 % 1 [...] Status Risk Notes Problem Paroxysmal atrial fibrillation (871907561) Paroxysmal atrial fibrillation (I48.0) Active confirmed Problem Lymphedema (122308065) Lymphedema, not elsewhere classified (I89.0) Active confirmed Problem Skin ulcer of calf (213461942) 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 Problem Skin ulcer of calf (362126638) Non-pressure chronic ulcer of left calf with 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) Active confirmed Problem Pain co-occurrent and due to varicose veins of bilateral legs (015433699188578 00) Varicose veins of leg with pain, 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 Encounters Encounter Location Date Provider Diagnosis [address] [id number] 12/18/2023 HITESH HUYNH Plan Of Treatment No Information Insurance Providers Payer Name Payer Address Payer Phone Subscriber Number Group Number Insured Name Patient Relationship to Insured Coverage Start Date Coverage End Date [facility] [address] [address] [place] [address] [id number] Edison Burr Self - patient is the insured Medical (General) History Medical History History ICD Code Heart attack HTN Arthritis Depression Kidney Disease Surgical History Surgery Date(Month/Year)
[2024-10-14 13:59] LABS: Hematocrit 33.6 % (42.0-52.0); Hemoglobin 9.2 g/dL (14.0-18.0); Mean Corpuscular HGB Conc 27.4 g/dl (32-36); Mean Corpuscular Hemoglobin 24.7 pg (26-34); Mean Corpuscular Volume 90.1 fl (80-100); Platelet Count Result 175 k/mm3 (150-375); Red Blood Count 3.73 M/mm3 (4.6-6.20); White Blood Count 6.2 K/mm3 (4.5-10.0)
[2024-10-14 14:27] LABS: Band Neutrophils Percent 7 % (0-6); Eosinophils Absolute Manual 0.12 K/mm3 (0.02-0.50); Eosinophils Percent Manual 2 % (0-4); Lymphocytes Absolute Manual 1.42 K/mm3 (1.1-4.5); Lymphocytes Percent Manual 23.0 % (18-44); Monocytes Absolute Manual 0.99 K/mm3 (0.1-0.90); Monocytes Percent Manual 16 % (3-9); Neutrophils Absolute Manual 3.65 K/mm3 (1.3-6.7); Neutrophils Percent Manual 52 % (46-73); Total Cells Counted 100
[2024-10-14 14:28] LABS: Hypochromasia 1+; Schistocytes None Seen
[2024-10-14 14:30] LABS: Anisocytosis 3+
[2024-10-14 14:31] LABS: Alanine Aminotransferase 15 U/L (6-50); Albumin Level 4.4 g/dL (3.5-5.1); Alkaline Phosphatase 84 U/L (38-126); Aspartate Amino Transferase 36 U/L (17-59); Bilirubin,Total 1.1 mg/dL (0.2-1.3); Blood Urea Nitrogen 14 mg/dL (9-20); Calcium 9.0 mg/dL (8.4-10.2); Carbon Dioxide 28 mmol/L (22-30); Chloride 92 mmol/L (98-107); Estimated CRCL calculation 66 ml/min; Estimated Glomerular Filt Rate > 60; Glucose 102 mg/dL (65-110); Potassium 5.7 mmol/L (3.4-5.0); Total Protein 7.2 g/dL (6.3-8.2)
[2024-10-14 14:32] LABS: Anion Gap 5 mmol/L (4-12); NT Pro B Type Natriuretic Pept 6940 pg/mL (19.9-100); Sodium 125 mmol/L (137-145); Troponin I < 0.012 ng/mL (0.000-0.034)
[2024-10-14 14:45] LABS: Influenza A QL RT-PCR Negative (Negative); Influenza B QL RT-PCR Negative (Negative); RSV RNA, RT-PCR Negative (Negative); SARS-CoV-2 RNA PCR Negative (Negative)
[2024-10-14] MEDS: FUROSEMIDE INJ 40 MG/4 ML VIAL 20 MG IV PUSH ×2 (15:32→19:54)
--- NOTE | 2024-10-14 16:12 | PC.NURSE ---
Attempted to get blood cultures. Pt is a hard stick. EDP Dr. Puckett made aware and gave okay to start abx without cultures.
[2024-10-14 16:23] LABS: CRP 5.4 mg/dL (<1.0); Lipase 24 U/L (23-300)
--- NOTE | 2024-10-14 16:43 | PC.NURSE ---
Went to start medications for patient. Pt family would like to wait on any medications until pt is evaluated by hospice.
--- NOTE | 2024-10-14 16:53 | PCCCNOTE ---
Called to ED for possible hospice referral. Pt is at present non responsive. Family includes (POA), daughter, son, and granddaughter. Spoke in length regarding pt current condition, past medical issues. Pt currently a DNR. While family is heavily leaning towards hospice, the is a little reluctant to make a final decision. They asked to [facility] to come out and evaluate and give additional information.
[2024-10-14] MEDS: CALCIUM GLUCONATE 1,000 MG/10 ML VIAL 1000 MG IV PUSH (19:18)
[2024-10-14] MEDS: INSULIN HUMAN REGULAR (*BKC) 100 UNITS/ML 10 UNITS IV PUSH (19:37)
[2024-10-14] MEDS: DEXTROSE 50% 25 GM/50 ML SYRINGE IV PUSH (19:37)
[2024-10-14] MEDS: CEFEPIME 2 GM in SODIUM CHLORIDE 0.9% IV 50 ML 100 ML IVPB (19:54)
[2024-10-14] MEDS: VANCOMYCIN 1,250 MG/NS 250 ML 1,250 MG/250 ML BAG 166.67 MG IVPB ×2 (20:42→23:21)
--- NOTE | 2024-10-14 20:50 | PC.NURSE ---
Called and spoke with [place] in lab who stated we can add magnesium and procalcitonin to labs we had already drawn
[2024-10-14 21:07] LABS: Magnesium 2.0 mg/dL (1.6-2.3)
[2024-10-14 21:24] LABS: Procalcitonin 0.1 ng/mL
[2024-10-14] MEDS: SODIUM CHLORIDE 0.9% IV 500 ML IV CONT (22:08)
[2024-10-14] MEDS: MIDODRINE HCL 10 MG TABLET PO (22:16)
--- NOTE | 2024-10-14 23:41 | ADMGEN ---
This patient, Edison Burr, was admitted to Medical Room 349-01. Patient/family oriented to hospital policies and general routines including ID bracelet, bed and alarms, visiting hours, pain management, procedures, bathroom and other care routines, personal items, smoking policy, room service/diet, and visiting hours. Information on how to activate the Rapid Response Team has been discussed. Patient/Family are encouraged to report perceived risks to care and to ask questions if they do not understand what they are told or what they should do.
[2024-10-14 23:42] LABS: Albumin Level 3.8 g/dL (3.5-5.1); Anion Gap 9 mmol/L (4-12); Blood Urea Nitrogen 17 mg/dL (9-20); Calcium 8.5 mg/dL (8.4-10.2); Carbon Dioxide 26 mmol/L (22-30); Chloride 93 mmol/L (98-107); Estimated CRCL calculation 52 ml/min; Estimated Glomerular Filt Rate 59; Glucose 80 mg/dL (65-110); Potassium 4.9 mmol/L (3.4-5.0); Sodium 128 mmol/L (137-145)
[2024-10-15] VITALS (14 sets, daily range): BP systolic 95–123; BP diastolic 53–62; PULSE 70–112; RESP 16–20; TEMP 36.1–36.9; O2SAT 90–98
--- NOTE | 2024-10-15 01:04 | PM.IMHP ---
H&P: HPI History of Present Illness Date/Time: 10/15/24 01:04 Chief Complaint: altered mental status and hypoxia Narrative: This is an 89-year-old male patient admitted to the hospital in serious condition after episode of unresponsiveness and discovery of subsequent hypoxia requiring high-flow oxygen. Patient has a history of amulet placement on October 02 at [facility], which was complicated by plummeting blood pressure and significant blood loss requiring ICU admission for about three nights and a pericardiocentesis. Since discharge from ICU, patient has not bounced back to baseline. Today a chest X-ray revealed bilateral basilar pneumonia and a left sided pleural effusion. Initially in the ER patient was hypotensive and unresponsive so the family requested hospice consult. Patient woke up on his own and was able to discuss and give consent for hospice care. Because of his sudden and remarkable turnaround, hospice stated he did not qualify for general inpatient hospice at this time so the decision was made to attempt to stabilize and admit on high-flow oxygen until he could be titrated down to a point that he could [place] [facility] and then be admitted to Hospice care. Patient initially on non-rebreather which was replaced with a nasal cannula that had to be constantly turned up until switched to Airvo. He was titrated back to nasal cannula at 8 liters/minute when he was admitted to the medical floor. Patient started on IV antibiotics (cefepime, doxycycline and vancomycin) for pneumonia. Patient also found to have hyperkalemia with a potassium of 5.7 which was treated in the ER and improved on repeat labs drawn near midnight. Repeat labs will be drawn in the morning. Continuous pulse ox and q.4 hour vital signs ordered. D-dimer noted to be positive. Will add CTA PE protocol for better evaluation for hypoxia and hypotension. Disposition will be pending Coordination with [facility] and [facility] for discharge once stable. Review of Systems Review of Systems: ROS unobtainable: Yes unobtainable due to medical condition and unobtainable due to mental status PMFSH Past Medical History Medical History Presence [facility] Hypertensive heart disease with heart failure Anemia, unspecified Chronic anticoagulation Atrial fibrillation Chronic hyponatremia COVID-19 vaccine series completed (~03/2020) Coronary artery disease Glaucoma Hyperlipidemia Essential hypertension Surgical History Surgical History S/P pericardiocentesis September 2024, Chaka Gibbs of exploratory laparotomy Exploratory laparotomy, 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 He and his lived in [place]. He is now residing at [facility] for indeterminate amount of time. He is retired from [employer]. They have 5 biological children and adopted 2 of their grand children. He usually drinks 3-4 mixed drinks a night. Code Status: DNR/DNI ; selective treatment (POLST signed by authorized practitioner on 01/21/2024) Smoking packs per day: 1 Smoking cigarettes per day: 20.0 Years smoked: 5 Smoking pack-years: 5.00 Smoking status: Former smoker Tobacco type: cigarettes Second hand tobacco smoke exposure: No Alcohol intake: current Drinks per week: 21 Substance use: never Substance use type: does not use Do You Feel Safe in your Home?: Yes Lack of Transportation: No Lack of Food: Never True Current Housing: I Have Housing Concerned About Future Housing: No Difficulty Paying Gas/Electric Bills: No Difficulty Paying for Meds: No Currently Unemployed: No Education: Decline to Answer Difficulty w/ Childcare or Family Care: No Living arrangements: assisted living Additional living arrangements comments: [place] Gender identity (if verbalized by the patient): Male Sexual Orientation (if Verbalized by the Patient): Straight or Heterosexual Spiritual care concerns: No Meds Home Medications and Allergies Home Medications ?Medication ?Instructions ?Recorded ?Confirmed ?Type furosemide 20 mg tablet 20 mg PO DAILY 09/22/21 10/14/24 History atorvastatin 20 mg tablet 20 mg PO DAILY 09/23/21 10/14/24 History diphenhydramine 25 2 tablet PO HS PRN sleep 09/23/21 10/14/24 History mg-acetaminophen 500 mg tablet (Tylenol PM Extra Strength) fluticasone propionate 50 1 spray intranasal HS 09/23/21 10/14/24 History mcg/actuation nasal spray,suspension latanoprost 0.005 % eye drops 1 drp LEFT EYE QPM 09/23/21 10/14/24 History sacubitril 24 mg-valsartan 26 mg 0.5 tablet PO BID 09/23/21 10/14/24 History tablet (Entresto) acetaminophen 325 mg capsule 650 mg PO BID PRN pain (scale 07/01/24 10/14/24 History score 1-3) clopidogrel 75 mg tablet 75 mg PO DAILY 07/01/24 10/14/24 History ergocalciferol (vitamin D2) 1,250 1,250 mcg PO WEEKLY 07/01/24 10/14/24 History mcg (50,000 unit) capsule folic acid 1 mg tablet 1 mg PO DAILY 07/01/24 10/14/24 History guaifenesin 100 mg/5 mL oral liquid 200 mg PO Q4H PRN cough 07/01/24 10/14/24 History levothyroxine 25 mcg capsule 25 mcg PO DAILY 07/01/24 10/14/24 History mirtazapine 15 mg tablet 7.5 mg PO DAILY 07/01/24 10/14/24 History ondansetron 4 mg disintegrating 4 mg PO Q6H PRN nausea and vomiting 07/01/24 10/14/24 History tablet pantoprazole 40 mg tablet,delayed 40 mg PO BID 07/01/24 10/14/24 History release polyethylene glycol 3350 17 17 g PO DAILY PRN constipation 07/01/24 10/14/24 History gram/dose oral powder (Miralax) potassium chloride 20 mEq 20 meq PO BID 07/01/24 10/14/24 History tablet,extended release(part/cryst) (Klor-Con M) sodium chloride 0.65 % nasal spray 1 spray intranasal Q4H PRN nasal 07/01/24 10/14/24 History aerosol (Saline Nasal) congestion tramadol 50 mg tablet 50 mg PO Q8H PRN pain (scale score 07/01/24 10/14/24 History 7-10) triamcinolone acetonide 0.1 % 1 applic topical BID PRN rash 07/01/24 10/14/24 History topical ointment Lactobacillus acidophilus 175 mg PO BID 10/14/24 10/15/24 History acetaminophen 500 mg tablet 1,000 mg PO DAILY PRN pain 10/14/24 10/14/24 History alprazolam 0.25 mg tablet 0.25 mg PO .every 8 hrs 10/14/24 10/14/24 History aspirin 81 mg tablet 81 mg PO DAILY 10/14/24 10/14/24 History calcium 600 mg (as 1 tablet PO BID 10/14/24 10/14/24 History carbonate)-vitamin D3 10 mcg (400 unit) tablet colchicine 0.6 mg capsule 0.6 mg PO BID 10/14/24 10/14/24 History magnesium oxide 400 mg PO DAILY 10/14/24 10/14/24 History midodrine 10 mg tablet 10 mg PO Q6H 10/14/24 10/14/24 History nystatin 100,000 unit/gram topical 1 applic topical BID 10/14/24 10/14/24 History powder (Nystop) trazodone 50 mg tablet 50 mg PO HS PRN sleep 10/14/24 10/14/24 History vit C,Y-Ng-brtnn-lutein-zeaxan 200 cap PO BID 10/14/24 10/14/24 History simethicone 125 mg capsule (Gas 125 mg PO BID PRN gas 10/15/24 10/15/24 History Relief Extra Strength) Allergies Allergy/AdvReac Type Severity Reaction Status Date / Time No Known Allergies Allergy Verified 10/14/24 15:14 Vital Signs Vital Signs - 24 hr 10/14/24 13:56 10/14/24 14:02 10/14/24 14:03 Temperature 35.8 C L Pulse Rate 105 H Respiratory Rate 15 Blood Pressure 119/87 Pulse Oximetry 87 L 95 Oxygen Delivery Nasal Cannula Non-Rebreather Mask Oxygen Flow Rate 2 10 10/14/24 15:13 10/14/24 15:39 10/14/24 15:45 Temperature Pulse Rate 92 94 113 H Respiratory Rate 16 19 17 Blood Pressure 91/66 L 112/85 Pulse Oximetry 94 95 97 Oxygen Delivery Oxygen Flow Rate 10/14/24 15:46 10/14/24 15:56 10/14/24 16:00 Temperature Pulse Rate 102 H 100 99 Respiratory Rate 17 15 17 Blood Pressure 95/46 L 96/69 L Pulse Oximetry 95 97 96 Oxygen Delivery Oxygen Flow Rate 10/14/24 16:01 10/14/24 16:10 10/14/24 16:15 Temperature Pulse Rate 94 100 106 H Respiratory Rate 20 14 14 Blood Pressure 113/77 Pulse Oximetry 95 95 96 Oxygen Delivery Oxygen Flow Rate 10/14/24 16:20 10/14/24 16:30 10/14/24 16:31 Temperature Pulse Rate 99 92 100 Respiratory Rate 14 16 17 Blood Pressure 87/42 L 108/68 Pulse Oximetry 96 Oxygen Delivery Oxygen Flow Rate 10/14/24 16:40 10/14/24 16:45 10/14/24 16:50 Temperature Pulse Rate 94 101 H 95 Respiratory Rate 16 16 17 Blood Pressure 104/58 L 91/62 L Pulse Oximetry 97 98 97 Oxygen Delivery Oxygen Flow Rate 10/14/24 17:00 10/14/24 17:01 10/14/24 17:10 Temperature Pulse Rate 106 H 109 H 108 H Respiratory Rate 19 14 24 H Blood Pressure 117/82 105/76 Pulse Oximetry 94 94 95 Oxygen Delivery Oxygen Flow Rate 10/14/24 17:15 10/14/24 17:20 10/14/24 17:30 Temperature Pulse Rate 114 H 107 H 110 H Respiratory Rate 29 H 18 18 Blood Pressure 94/67 L 103/67 Pulse Oximetry 96 95 95 Oxygen Delivery Oxygen Flow Rate 10/14/24 17:40 10/14/24 17:41 10/14/24 17:45 Temperature Pulse Rate 110 H 112 H 120 H Respiratory Rate 17 16 17 Blood Pressure 122/75 Pulse Oximetry 97 97 96 Oxygen Delivery Oxygen Flow Rate 10/14/24 17:50 10/14/24 18:00 10/14/24 18:01 Temperature Pulse Rate 109 H 115 H 106 H Respiratory Rate 15 17 15 Blood Pressure 110/64 117/65 Pulse Oximetry 96 97 97 Oxygen Delivery Oxygen Flow Rate 10/14/24 18:10 10/14/24 18:15 10/14/24 18:20 Temperature Pulse Rate 105 H 112 H 98 Respiratory Rate 15 17 16 Blood Pressure 109/79 83/52 L Pulse Oximetry 97 97 97 Oxygen Delivery Oxygen Flow Rate 10/14/24 18:30 10/14/24 18:45 10/14/24 18:50 Temperature Pulse Rate 125 H 101 H Respiratory Rate 24 H 21 H 15 Blood Pressure 99/61 L 96/54 L Pulse Oximetry 95 96 97 Oxygen Delivery Oxygen Flow Rate 10/14/24 19:00 10/14/24 19:01 10/14/24 19:10 Temperature Pulse Rate 121 H 112 H 110 H Respiratory Rate 16 16 17 Blood Pressure 95/64 L 99/65 L Pulse Oximetry 96 96 95 Oxygen Delivery Oxygen Flow Rate 10/14/24 19:15 10/14/24 19:20 10/14/24 19:30 Temperature Pulse Rate 112 H 116 H 106 H Respiratory Rate 18 16 14 Blood Pressure 98/70 L 103/64 Pulse Oximetry 95 95 95 Oxygen Delivery Oxygen Flow Rate 10/14/24 19:31 10/14/24 19:40 10/14/24 19:45 Temperature Pulse Rate 102 H 107 H 114 H Respiratory Rate 16 15 19 Blood Pressure 101/61 Pulse Oximetry 94 92 93 Oxygen Delivery Oxygen Flow Rate 10/14/24 19:50 10/14/24 19:59 10/14/24 20:00 Temperature Pulse Rate 107 H 93 99 Respiratory Rate 16 13 15 Blood Pressure 98/68 L 90/57 L 92/54 L Pulse Oximetry 92 Oxygen Delivery Oxygen Flow Rate 10/14/24 20:01 10/14/24 20:10 10/14/24 20:15 Temperature Pulse Rate 98 100 106 H Respiratory Rate 20 17 19 Blood Pressure 80/53 L Pulse Oximetry 96 Oxygen Delivery Oxygen Flow Rate 10/14/24 20:20 10/14/24 20:30 10/14/24 20:31 Temperature Pulse Rate 103 H 90 85 Respiratory Rate 23 H 16 14 Blood Pressure 97/55 L 82/58 L Pulse Oximetry 97 Oxygen Delivery Oxygen Flow Rate 10/14/24 20:40 10/14/24 20:44 10/14/24 20:45 Temperature Pulse Rate 93 100 100 Respiratory Rate 18 16 18 Blood Pressure 78/57 L 74/53 L Pulse Oximetry 92 96 99 Oxygen Delivery Oxygen Flow Rate 10/14/24 20:50 10/14/24 21:00 10/14/24 21:01 Temperature Pulse Rate 108 H 110 H 104 H Respiratory Rate 22 H 16 19 Blood Pressure 86/54 L 94/61 L Pulse Oximetry 78 L Oxygen Delivery Oxygen Flow Rate 10/14/24 21:10 10/14/24 21:15 10/14/24 21:20 Temperature Pulse Rate 105 H 118 H 100 Respiratory Rate 18 20 20 Blood Pressure 77/51 L 87/59 L Pulse Oximetry Oxygen Delivery Oxygen Flow Rate 10/14/24 21:30 10/14/24 21:31 10/14/24 21:37 Temperature Pulse Rate 85 94 75 Respiratory Rate 19 17 15 Blood Pressure 86/44 L 69/51 L Pulse Oximetry 93 93 91 Oxygen Delivery Oxygen Flow Rate 10/14/24 21:40 10/14/24 21:45 10/14/24 21:50 Temperature Pulse Rate 94 97 102 H Respiratory Rate 14 17 21 H Blood Pressure 83/61 L 94/42 L Pulse Oximetry 94 Oxygen Delivery Oxygen Flow Rate 10/14/24 21:51 10/14/24 22:00 10/14/24 22:19 Temperature Pulse Rate 102 H 94 104 H Respiratory Rate 19 17 19 Blood Pressure 97/68 L Pulse Oximetry 92 Oxygen Delivery Oxygen Flow Rate 10/15/24 00:18 Temperature Pulse Rate 88 Respiratory Rate 20 Blood Pressure Pulse Oximetry 90 Oxygen Delivery High Flow Nasal Cannula Oxygen Flow Rate 8 Exam Narrative: GENERAL: Acutely ill-appearing, unconscious with mildly labored deep respirations HEAD: Normocephalic, atraumatic. ENT:? Mucous membranes moist. CHEST: Clear to auscultation.? Mildly labored deep respirations. Oxygen by nasal cannula at 8 liters/minute HEART: Regular rate and irregular rhythm. ? Normal peripheral pulses. ABDOMEN: Soft, nontender, nondistended. EXTREMITIES: Normal range of motion. No peripheral edema. SKIN: Warm dry normal color NEURO: Unconscious H&P: Results Labs Labs: Short CBC 10/14/24 Range/Units 13:53 WBC 6.2 (4.5-10.0) K/mm3 Hgb 9.2 L (14.0-18.0) g/dL Hct 33.6 L (42.0-52.0) % Plt Count 175 (150-375) k/mm3 [facility] 10/14/24 10/14/24 13:53 23:20 Sodium 125 L 128 L Potassium 5.7 H 4.9 Chloride 92 L 93 L Carbon Dioxide 28 26 BUN 14 17 Creatinine 0.90 1.17 Glucose 102 80 Calcium 9.0 8.5 Cardiac Enzymes 10/14/24 Range/Units 13:53 Troponin I < 0.012 (0.000-0.034) ng/mL Liver Function 10/14/24 10/14/24 Range/Units 13:53 23:20 Total Bilirubin 1.1 (0.2-1.3) mg/dL AST 36 (17-59) U/L ALT 15 (6-50) U/L Alkaline Phosphatase 84 (38-126) U/L Albumin 4.4 3.8 (3.5-5.1) g/dL Pulse Oximetry SpO2 results: 91% on 8 LPM by Nasal Cannula Attestation: I personally reviewed and interpreted this pulse oximetry as follows: Interpretation: Patient continues to require supplemental oxygen at high rates of flow ECG Attestation: I personally reviewed and interpreted this ECG as follows: ECG completion date: 10/14/24 ECG completion time: 13:57 Prior ECG tracings: available for review Interpretation: Atrial fibrillation rate of 98 QRS duration 112 QTC 465 QRS axis 69 T-wave flattening in multiple leads Imaging Chest x-ray: Radiologist's impression: Examination: XR chest 1V portable Clinical History: hypoxia Comparison: 07/04/2024 Technique: Portable AP Findings: Diffusely calcified descending thoracic aorta. Atrial appendage excluder device. Heart size enlarged. Large left and small right pleural effusions, associated basilar opacities. No acute bony abnormality. IMPRESSION: 1. Pleural effusions with bibasilar atelectasis and/or airspace disease, left lung worse. Reviewed, dictated and finalized at location . Assessment and Plan Assessment and plan (1) Acute hypoxic respiratory failure: Code(s): J96.01 - Acute respiratory failure with hypoxia Status: Acute Assessment and Plan: -Unresponsive episode today with new oxygen demand requiring non-rebreather then Airvo and now 8 liters/minute via nasal cannula -Will need to be able to titrate down oxygen in order to discharge to [facility] to be admitted to Hospice services -Positive D-Dimer in ER -Will add VBG to morning labs and CTA chest PE protocol to further assess possible reasons for unconscious state, hypoxia and hypotension (2) Septic shock: Code(s): A41.9 - Sepsis, unspecified organism; R65.21 - Severe sepsis with septic shock Status: Acute Assessment and Plan: -Unconscious with hypotension, hypoxia, tachycardia, tachypnea, bandemia (7%) and CXR findings to support pneumonia (3) Hyperkalemia: Code(s): E87.5 - Hyperkalemia Status: Acute Assessment and Plan: -Potassium 5.7 on arrival -IV furosemide, IV calcium, IV insulin and IV dextrose given in ER -Repeat potassium 4.9 on admission to the floor (4) Mental status, decreased: Code(s): R41.82 - Altered mental status, unspecified Status: Acute Assessment and Plan: -Unresponsive most of the day then had normal mentation until he drifted back to unconscious state -Agreed to Hospice once able to be discharged from the hospital (5) Pneumonia: Code(s): J18.9 - Pneumonia, unspecified organism Status: Acute Assessment and Plan: -Bibasilar airspace consolidation -MRSA nares positive -Patient septic on arrival with altered mental status, respiratory failure and hypotension -Cefepime, doxycycline and vancomycin started in ER and will be continued (6) Hyponatremia: Code(s): E87.1 - Hypo-osmolality and hyponatremia Status: Acute Assessment and Plan: -Sodium 125 on admission, likely low due to acute illness -May be exacerbating altered mental status -Improved to 128 after treatment for hyperkalemia (7) Acute on chronic heart failure: Code(s): I50.9 - Heart failure, unspecified Status: Acute Assessment and Plan: -Acute hypoxic respiratory failure and pleural effusion noted -Prior Echo from 06/2024 shows right sided systolic dysfunction and biatrial enlargement -Patient prescribed Entresto low dose but also on midodrine -Normal LVEF 60-65% (8) Pleural effusion on left: Code(s): J90 - Pleural effusion, not elsewhere classified Status: Acute Assessment and Plan: -Noted on imaging, CTA ordered (9) Chronic atrial fibrillation with RVR: Code(s): I48.20 - Chronic atrial fibrillation, unspecified Status: Chronic Assessment and Plan: -Atrial fibrillation with borderline RVR on admission, no longer on anticoagulation due to recent pericardial bleed requiring pericardiocentesis -Rate control as needed (10) Essential hypertension: Code(s): I10 - Essential (primary) hypertension Status: Chronic Assessment and Plan: -Patient had hypotension in ER and is prescribed midodrine as needed for low BP (11) Chronic anticoagulation: Code(s): Z79.01 - assisted (current) use of anticoagulants Status: Chronic Assessment and Plan: On aspirin and Plavix but no longer on true anticoagulation Quality VTE Prophylaxis VTE prophylaxis: mechanical ordered If No VTE Prophylaxis Answer both mechanical and pharmacologic: Reason no pharmacologic proph: medical contraindication active bleeding/bleeding risk Total time spent on this patient care inclusive critical care time documented below: 120 minutes Hospice was consulted in ER with plans to stabilize then return patient to [facility] on Hospice Care. Currently does not meet criteria for GIP Hospice. Patient admitted to med/surg instead of IMU due to DNR status with Hospice consult and plans to discharge to Hospice care. However, family still wants assessment and restorative treatment if possible to stabilize him before discharge back to facility on Hospice. Thus, additional testing was added after admission that may have been done sooner if Hospice had not been consulted in ER. Due to a high probability of clinically significant, life threatening deterioration, the patient required my highest level of preparedness to intervene emergently and I personally spent this critical care time directly and personally managing the patient. This critical care time included obtaining a history; examining the patient; pulse oximetry; ordering and review of studies; arranging urgent treatment with development of a management plan; evaluation of patient's response to treatment; frequent reassessment; and discussions with other providers. It was exclusive of separately billable procedures and treating other patients and teaching time. Please see Assessment and Plan section and the rest of the note for further information on patient assessment and treatment. Critical Care time: 45 minutes Hospitalist MIPS Advance Care Plan I have confirmed that the patient's Advanced Care Plan is present, code status is documented, or surrogate decision maker is listed in patient medical record.: Yes Medication Reconciliation I have utilized all available resources to obtain, update and review the patients current medications (includes all prescriptions, OTC, herbals, cannabis, and nutritional supplements).: Yes
[2024-10-15 02:33] LABS: MRSA (PCR) DETECTED (NOT DETECTE)
[2024-10-15 05:25] LABS: Fractional Inspired Oxygen 66 %; HCO3 VBG 24.6 mEq/l (24.0-30.0); PCO2 VBG 63.1 mmHg (42.0-48.0); PO2 VBG 53.3 mmHg (35.0-45.0)
[2024-10-15 05:35] LABS: pH VBG 7.208 (7.300-7.400)
[2024-10-15 05:36] LABS: Hematocrit 30.4 % (42.0-52.0); Hemoglobin 8.2 g/dL (14.0-18.0); Immature Granulocyte Percent A 2.8 % (0-0.5); Lymphocytes Absolute Auto 1.19 K/mm3 (0.9-3.2); Mean Corpuscular HGB Conc 27.0 g/dl (32-36); Mean Corpuscular Hemoglobin 24.7 pg (26-34); Mean Corpuscular Volume 91.6 fl (80-100); Nucleated Red Blood Cells Absolute Auto 0.030 K/mm3 (0.0-0.012); Nucleated Red Blood Cells Perc 0.5 % (0.0-0.2); Platelet Count Result 157 k/mm3 (150-375); Red Blood Count 3.32 M/mm3 (4.6-6.20); White Blood Count 5.7 K/mm3 (4.5-10.0)
[2024-10-15 05:37] LABS: Liters per Minute 8.0 LPM
[2024-10-15 06:02] LABS: Albumin Level 3.7 g/dL (3.5-5.1); Anion Gap 6 mmol/L (4-12); Blood Urea Nitrogen 19 mg/dL (9-20); CRP 7.1 mg/dL (<1.0); Calcium 8.4 mg/dL (8.4-10.2); Carbon Dioxide 26 mmol/L (22-30); Chloride 95 mmol/L (98-107); Estimated CRCL calculation 47 ml/min; Estimated Glomerular Filt Rate 56; Glucose 79 mg/dL (65-110); Magnesium 2.0 mg/dL (1.6-2.3); Potassium 5.3 mmol/L (3.4-5.0); Sodium 127 mmol/L (137-145)
[2024-10-15 06:13] LABS: Procalcitonin 0.1 ng/mL
[2024-10-15] MEDS: LEVOTHYROXINE SODIUM 25 MCG TABLET PO (06:59)
[2024-10-15 07:05] LABS: Anisocytosis 1+; Hypochromasia 1+; Ovalocytes 1+; Schistocytes None Seen
--- NOTE | 2024-10-15 07:12 | PCRCNOTE ---
Patients family refusing BIPAP at this time.
--- NOTE | 2024-10-15 07:16 | P.PNIM_ITS ---
Progress Note: A&P Assessment and Plan (1) Hospice care: Code(s): Z51.5 - Encounter for palliative care Status: Acute Assessment and Plan: Rediscussed care plan with patient and family today and they wish to remain comfort care stating no extensive measures or testing to be obtained Signed with [facility] Plan to return to [facility] ([facility]) when equipment has been delivered (2) Acute hypoxic respiratory failure: Code(s): J96.01 - Acute respiratory failure with hypoxia Status: Acute Assessment and Plan: -Unresponsive episode today with new oxygen demand requiring non-rebreather then Airvo and now 3 liters/minute via nasal cannul - Oxygen supplementation: 3L NC, wean as tolerated to maintain spo2 > 90 - Suspected cause: pleural effusion and concern for pneumonia - Positive D-Dimer in ER - VBG showed respiratory acidosis with hypercapnia. Patient family refused bipap. - Chest XR: pleural effusions with bibasilar atelectasis and/or airspace disease, left lung worse. See plan for pneumonia below - Prior provider ordered a CTA chest PE protocol to further assess possible reasons for unconscious state, hypoxia and hypotension however family does not wish to proceed with further testing. CTA discontinued. Patient remains on 3 L nasal cannula with stable oxygen saturations. (3) Septic shock: Code(s): A41.9 - Sepsis, unspecified organism; R65.21 - Severe sepsis with septic shock Status: Acute Assessment and Plan: -Unconscious with hypotension, hypoxia, tachycardia, tachypnea, bandemia (7%) and CXR findings to support pneumonia - lactic acid: WNL - suspected source: pneumonia - No blood cultures drawn as family wishes to be comfort - Chest XR: pleural effusions with bibasilar atelectasis and/or airspace disease, left lung worse. See plan for pneumonia below Patient remains slightly tachycardic in the low 100s. Pressures remain stable. Oxygen saturation stable on 3 L nasal cannula. (4) Pneumonia: Code(s): J18.9 - Pneumonia, unspecified organism Status: Acute Assessment and Plan: CXR: pleural effusions with bibasilar atelectasis and/or airspace disease, left lung worse - started on CAP tx: levaquin q48 hr (renal dosing) - Viral PCR: negative for Flu/COVID/RSV - MRSA positive, bactroban ordered - Monitor vital signs, I&Os, neuro status and patient is a fall risk (5) Pleural effusion on left: Code(s): J90 - Pleural effusion, not elsewhere classified Status: Acute Assessment and Plan: - Chest XR: pleural effusions with bibasilar atelectasis and/or airspace disease, left lung worse. - Continue home lasix (6) Hyperkalemia: Code(s): E87.5 - Hyperkalemia Status: Acute Assessment and Plan: -Potassium 5.7 on arrival -IV furosemide, IV calcium, IV insulin and IV dextrose given in ER -Repeat potassium 5.3, received daily lasix. Family not wishing to persue further intervention. (7) Hyponatremia: Code(s): E87.1 - Hypo-osmolality and hyponatremia Status: Acute Assessment and Plan: -Sodium 125 on admission, likely low due to acute illness vs volume overload -Improved to 127 after treatment for hyperkalemia (8) Acute on chronic heart failure: Code(s): I50.9 - Heart failure, unspecified Status: Acute Assessment and Plan: -Acute hypoxic respiratory failure and pleural effusion noted -Echo 07/01/24: LVEF 60-65% -Patient prescribed Entresto low dose but also on midodrine (9) Chronic atrial fibrillation with RVR: Code(s): I48.20 - Chronic atrial fibrillation, unspecified Status: Chronic Assessment and Plan: -Atrial fibrillation with borderline RVR on admission - not on a rate controlling medication - no longer on anticoagulation due to recent pericardial bleed requiring pericardiocentesis Telemetry showing afib with HRs 90-100s. (10) Essential hypertension: Code(s): I10 - Essential (primary) hypertension Status: Chronic Assessment and Plan: Chronic, hypotensive on admission - entresto BID - lasix 20 mg daily -blood pressures reviewed in remained stable. Time Spent With Patient Time with patient: 25 - 35 minutes Subjective Date/time seen: 10/15/24 07:16 Interval history: Patient is pleasant lying comfortably in bed. He is alert and oriented x3 on assessment. He remains on 3 L cannula with stable oxygen saturations. He continues to endorse shortness of breath but has no other complaints denying chest pain, palpitations, nausea/vomiting, and abdominal pain. Patient was to be discharged back to [facility] on hospice however equipment has not been delivered. Return to patient's room and family was updated the patient will stay in the hospital overnight awaiting equipment to be delivered. Review of Systems Review of Systems: All systems reviewed & are unremarkable except as noted in HPI and below Exam Narrative: AF HR 91 RR 20 SpO2 96 3LNC BP 123/62 General: male in no acute respiratory distress who is nontoxic appearing, lying semi recumbent in bed. HEENT: Normocephalic. Atraumatic. Extraocular movement intact. Sclera clear and anicteric. No facial asymmetry. Chest: Lungs with crackles to the bases bilaterally. CV: Heart was irregularly irregular rate and rhythm. Abd: Abdomen was soft. Nontender. Nondistended. Positive bowel sounds. Ext: No clubbing, cyanosis, or edema. DP pulses bilaterally. Neuro: Patient is alert and oriented x3. Speech is clear. Objective Data Vital Signs Vital Signs: Vital Signs - 24 hr 10/14/24 13:56 10/14/24 14:02 10/14/24 14:03 Temperature 96.4 F L Pulse Rate 105 H Respiratory Rate 15 Blood Pressure 119/87 Pulse Oximetry 87 L 95 Oxygen Delivery Nasal Cannula Non-Rebreather Mask Oxygen Flow Rate 2 10 10/14/24 15:13 10/14/24 15:39 10/14/24 15:45 Temperature Pulse Rate 92 94 113 H Respiratory Rate 16 19 17 Blood Pressure 91/66 L 112/85 Pulse Oximetry 94 95 97 Oxygen Delivery Oxygen Flow Rate 10/14/24 15:46 10/14/24 15:56 10/14/24 16:00 Temperature Pulse Rate 102 H 100 99 Respiratory Rate 17 15 17 Blood Pressure 95/46 L 96/69 L Pulse Oximetry 95 97 96 Oxygen Delivery Oxygen Flow Rate 10/14/24 16:01 10/14/24 16:10 10/14/24 16:15 Temperature Pulse Rate 94 100 106 H Respiratory Rate 20 14 14 Blood Pressure 113/77 Pulse Oximetry 95 95 96 Oxygen Delivery Oxygen Flow Rate 10/14/24 16:20 10/14/24 16:30 10/14/24 16:31 Temperature Pulse Rate 99 92 100 Respiratory Rate 14 16 17 Blood Pressure 87/42 L 108/68 Pulse Oximetry 96 Oxygen Delivery Oxygen Flow Rate 10/14/24 16:40 10/14/24 16:45 10/14/24 16:50 Temperature Pulse Rate 94 101 H 95 Respiratory Rate 16 16 17 Blood Pressure 104/58 L 91/62 L Pulse Oximetry 97 98 97 Oxygen Delivery Oxygen Flow Rate 10/14/24 17:00 10/14/24 17:01 10/14/24 17:10 Temperature Pulse Rate 106 H 109 H 108 H Respiratory Rate 19 14 24 H Blood Pressure 117/82 105/76 Pulse Oximetry 94 94 95 Oxygen Delivery Oxygen Flow Rate 10/14/24 17:15 10/14/24 17:20 10/14/24 17:30 Temperature Pulse Rate 114 H 107 H 110 H Respiratory Rate 29 H 18 18 Blood Pressure 94/67 L 103/67 Pulse Oximetry 96 95 95 Oxygen Delivery Oxygen Flow Rate 10/14/24 17:40 10/14/24 17:41 10/14/24 17:45 Temperature Pulse Rate 110 H 112 H 120 H Respiratory Rate 17 16 17 Blood Pressure 122/75 Pulse Oximetry 97 97 96 Oxygen Delivery Oxygen Flow Rate 10/14/24 17:50 10/14/24 18:00 10/14/24 18:01 Temperature Pulse Rate 109 H 115 H 106 H Respiratory Rate 15 17 15 Blood Pressure 110/64 117/65 Pulse Oximetry 96 97 97 Oxygen Delivery Oxygen Flow Rate 10/14/24 18:10 10/14/24 18:15 10/14/24 18:20 Temperature Pulse Rate 105 H 112 H 98 Respiratory Rate 15 17 16 Blood Pressure 109/79 83/52 L Pulse Oximetry 97 97 97 Oxygen Delivery Oxygen Flow Rate 10/14/24 18:30 10/14/24 18:45 10/14/24 18:50 Temperature Pulse Rate 125 H 101 H Respiratory Rate 24 H 21 H 15 Blood Pressure 99/61 L 96/54 L Pulse Oximetry 95 96 97 Oxygen Delivery Oxygen Flow Rate 10/14/24 19:00 10/14/24 19:01 10/14/24 19:10 Temperature Pulse Rate 121 H 112 H 110 H Respiratory Rate 16 16 17 Blood Pressure 95/64 L 99/65 L Pulse Oximetry 96 96 95 Oxygen Delivery Oxygen Flow Rate 10/14/24 19:15 10/14/24 19:20 10/14/24 19:30 Temperature Pulse Rate 112 H 116 H 106 H Respiratory Rate 18 16 14 Blood Pressure 98/70 L 103/64 Pulse Oximetry 95 95 95 Oxygen Delivery Oxygen Flow Rate 10/14/24 19:31 10/14/24 19:40 10/14/24 19:45 Temperature Pulse Rate 102 H 107 H 114 H Respiratory Rate 16 15 19 Blood Pressure 101/61 Pulse Oximetry 94 92 93 Oxygen Delivery Oxygen Flow Rate 10/14/24 19:50 10/14/24 19:59 10/14/24 20:00 Temperature Pulse Rate 107 H 93 99 Respiratory Rate 16 13 15 Blood Pressure 98/68 L 90/57 L 92/54 L Pulse Oximetry 92 Oxygen Delivery Oxygen Flow Rate 10/14/24 20:01 10/14/24 20:10 10/14/24 20:15 Temperature Pulse Rate 98 100 106 H Respiratory Rate 20 17 19 Blood Pressure 80/53 L Pulse Oximetry 96 Oxygen Delivery Oxygen Flow Rate 10/14/24 20:20 10/14/24 20:30 10/14/24 20:31 Temperature Pulse Rate 103 H 90 85 Respiratory Rate 23 H 16 14 Blood Pressure 97/55 L 82/58 L Pulse Oximetry 97 Oxygen Delivery Oxygen Flow Rate 10/14/24 20:40 10/14/24 20:44 10/14/24 20:45 Temperature Pulse Rate 93 100 100 Respiratory Rate 18 16 18 Blood Pressure 78/57 L 74/53 L Pulse Oximetry 92 96 99 Oxygen Delivery Oxygen Flow Rate 10/14/24 20:50 10/14/24 21:00 10/14/24 21:01 Temperature Pulse Rate 108 H 110 H 104 H Respiratory Rate 22 H 16 19 Blood Pressure 86/54 L 94/61 L Pulse Oximetry 78 L Oxygen Delivery Oxygen Flow Rate 10/14/24 21:10 10/14/24 21:15 10/14/24 21:20 Temperature Pulse Rate 105 H 118 H 100 Respiratory Rate 18 20 20 Blood Pressure 77/51 L 87/59 L Pulse Oximetry Oxygen Delivery Oxygen Flow Rate 10/14/24 21:30 10/14/24 21:31 10/14/24 21:37 Temperature Pulse Rate 85 94 75 Respiratory Rate 19 17 15 Blood Pressure 86/44 L 69/51 L Pulse Oximetry 93 93 91 Oxygen Delivery Oxygen Flow Rate 10/14/24 21:40 10/14/24 21:45 10/14/24 21:50 Temperature Pulse Rate 94 97 102 H Respiratory Rate 14 17 21 H Blood Pressure 83/61 L 94/42 L Pulse Oximetry 94 Oxygen Delivery Oxygen Flow Rate 10/14/24 21:51 10/14/24 22:00 10/14/24 22:19 Temperature Pulse Rate 102 H 94 104 H Respiratory Rate 19 17 19 Blood Pressure 97/68 L Pulse Oximetry 92 Oxygen Delivery Oxygen Flow Rate 10/15/24 00:00 10/15/24 00:18 10/15/24 04:00 Temperature Pulse Rate 93 88 94 Respiratory Rate 20 Blood Pressure Pulse Oximetry 90 Oxygen Delivery High Flow Nasal Cannula Oxygen Flow Rate 8 10/15/24 04:00 Temperature Pulse Rate 70 Respiratory Rate 20 Blood Pressure 108/58 L Pulse Oximetry 91 Oxygen Delivery Oxygen Flow Rate Intake/Output Intake/Output: Intake & Output 10/12/24 10/13/24 10/14/24 10/15/24 23:59 23:59 23:59 23:59 Intake Total 800 Output Total 150 Balance 800 -150 Meds/Results Medications: Active Medications Generic Name Dose Route Start Last Admin Trade Name Freq PRN Reason Stop Dose Admin Acetaminophen 650 mg 10/15/24 00:59 Acetaminophen 325 Mg Tablet PO Q6H PRN pain (scale score 1-3) Alprazolam 0.25 mg 10/15/24 04:19 Alprazolam (*Crx) 0.25 Mg Tablet PO Q8HR PRN anxiety/agitation Aspirin 81 mg 10/15/24 08:00 Aspirin 81 Mg Chewable Tablet PO DAILY@0800 [facility] Atorvastatin Calcium 20 mg 10/15/24 09:00 Atorvastatin 20 Mg Tablet PO DAILY [facility] Clopidogrel Bisulfate 75 mg 10/15/24 09:00 Clopidogrel Bisulfate 75 Mg Tablet PO DAILY [facility] Colchicine 0.6 mg 10/15/24 09:00 Colchicine 0.6 Mg Tablet PO Q12HR [facility] Fluticasone Propionate 1 spray 10/15/24 21:00 Fluticasone Propionate 0.05% Na Spr 16 Gm Btl (*Bkc) NASAL HS ROZ Folic Acid 1 mg 10/15/24 09:00 Folic Acid 1 Mg Tablet PO DAILY ROZ Furosemide 20 mg 10/15/24 09:00 Furosemide 20 Mg Tablet PO DAILY [facility] Guaifenesin 200 mg 10/15/24 00:59 Guaifenesin 200 Mg/10 Ml Udc PO Q4H PRN Cough Vancomycin HCl 1,500 mg in 500 mls @ 250 mls/hr 10/15/24 20:00 Vancomycin 1,500 Mg/Ns 500 Ml IVPB Q24H [facility] Lactobacillus Acidophilus 1 tablet 10/15/24 09:00 Acidophilus/Bulgaricus Chewable Tablet PO BID [facility] Latanoprost 1 drop 10/15/24 21:00 Latanoprost 0.005% Op Soln 2.5 Ml Btl LEFT EYE QHS [facility] Levothyroxine Sodium 25 mcg 10/15/24 06:30 10/15/24 06:59 Levothyroxine Sodium 25 Mcg Tablet PO 25 mcg DAILY@0630 [facility] Administration Magnesium Oxide 400 mg 10/15/24 09:00 Magnesium Oxide 400 Mg Tablet PO DAILY [facility] Midodrine 10 mg 10/15/24 09:00 Midodrine Hcl 10 Mg Tablet PO TID [facility] Mirtazapine 7.5 mg 10/15/24 21:00 Mirtazapine 7.5 Mg Tablet PO HS [facility] Ondansetron HCl 4 mg 10/14/24 19:53 Ondansetron Inj 4 Mg/2 Ml Vial IV PUSH Q4H PRN Nausea Pantoprazole Sodium 40 mg 10/15/24 09:00 Pantoprazole 40 Mg Tablet PO Q12HR [facility] Polyethylene Glycol 17 gm 10/15/24 00:59 Polyethylene Glycol 3350 17 Gm Powd.Pack PO DAILY PRN Constipation Potassium Chloride 20 meq 10/15/24 08:00 Potassium Chloride 20 Meq Er Tablet PO BIDWM [facility] Sacubitril/Valsartan 1 tab 10/15/24 09:00 Sacubitril/Valsartan 12-13 Mg Tablet PO Q12HR [facility] Simethicone 125 mg 10/15/24 00:59 Simethicone 125 Mg Chew Tab PO Q12H PRN gas Sodium Chloride 1 spray 10/15/24 00:59 Saline 0.65% Solomon Soln 44 Ml Btl NASAL Q4H PRN Nasal Congestion Tramadol HCl 50 mg 10/15/24 00:59 Tramadol Hcl (*Crx) 50 Mg Tablet PO Q8H PRN pain (scale score 7-10) Trazodone HCl 50 mg 10/15/24 00:59 Trazodone Hcl 50 Mg Tablet PO HS PRN Sleep Triamcinolone Acetonide 1 applic 10/15/24 00:59 Triamcinolone Acet 0.1% Oint 15 Gm Tube TOPICAL Q12H PRN Rash Radiology Results: ITS Impressions Chest X-Ray 10/14/24 14:35 IMPRESSION: 1. Pleural effusions with bibasilar atelectasis and/or airspace disease, left lung worse. Labs Labs: Laboratory Results - last 24 hr 10/14/24 10/14/24 10/14/24 13:51 13:53 19:39 WBC 6.2 RBC 3.73 L Hgb 9.2 L Hct 33.6 L MCV 90.1 MCH 24.7 L MCHC 27.4 L RDW 16.3 H Plt Count 175 MPV 9.3 Immature Gran % (Auto) Not Reportable Neut % (Auto) Not Reportable Lymph % (Auto) Not Reportable [place] % (Auto) Not Reportable Eos % (Auto) Not Reportable Baso % (Auto) Not Reportable Lymph # (Auto) Not Reportable [place] # (Auto) Not Reportable Eos # (Auto) Not Reportable Baso # (Auto) Not Reportable Abs Immat Gran (auto) Not Reportable Absolute Neuts (auto) Not Reportable Absolute Nucleated RBC Not Reportable Total Counted 100 Neutrophils % (Manual) 52 Band Neutrophils % 7 H Lymphocytes % (Manual) 23.0 Monocytes % (Manual) 16 H Eosinophils % (Manual) 2 Nucleated RBC % Not Reportable Abs Neuts (Manual) 3.65 Abs Lymphs (Manual) 1.42 Abs Monocytes (Manual) 0.99 H Absolute Eos (Manual) 0.12 Platelet Estimate Adequate Hypochromasia 1+ Anisocytosis 3+ Ovalocytes Schistocytes None seen D-Dimer 0.83 H VBG pH VBG pCO2 VBG pO2 VBG HCO3 O2 Delivery Device O2 Liters/Min FiO2 Sodium 125 L Potassium 5.7 H Chloride 92 L Carbon Dioxide 28 Anion Gap 5 BUN 14 Creatinine 0.90 Estim Creat Clear Calc 66 Estimated GFR > 60 Glucose 102 POC Capillary Glucose 94 Lactic Acid 1.6 Calcium 9.0 Phosphorus Magnesium 2.0 Total Bilirubin 1.1 AST 36 ALT 15 Alkaline Phosphatase 84 Troponin I < 0.012 C-Reactive Protein 5.4 H NT-Pro-B Natriuret Pep 6940 H Total Protein 7.2 Albumin 4.4 Lipase 24 Procalcitonin 0.1 Nasal MRSA (PCR) Influenza A (RT-PCR) Negative Influenza B (RT-PCR) Negative RSV (RT-PCR) Negative SARS-CoV-2 RNA (RT-PCR) Negative 10/14/24 10/15/24 10/15/24 23:20 00:37 04:55 WBC 5.7 RBC 3.32 L Hgb 8.2 L Hct 30.4 L MCV 91.6 MCH 24.7 L MCHC 27.0 L RDW 16.3 H Plt Count 157 MPV 9.5 Immature Gran % (Auto) 2.8 H Neut % (Auto) 51.1 Lymph % (Auto) 21.1 [place] % (Auto) 23.5 H Eos % (Auto) 1.1 Baso % (Auto) 0.4 Lymph # (Auto) 1.19 [place] # (Auto) 1.3 H Eos # (Auto) 0.1 Baso # (Auto) 0.0 Abs Immat Gran (auto) 0.16 H Absolute Neuts (auto) 2.9 Absolute Nucleated RBC 0.030 H Total Counted Neutrophils % (Manual) Band Neutrophils % Not Reportable Lymphocytes % (Manual) Monocytes % (Manual) Eosinophils % (Manual) Nucleated RBC % 0.5 H Abs Neuts (Manual) Abs Lymphs (Manual) Abs Monocytes (Manual) Absolute Eos (Manual) Platelet Estimate Adequate Hypochromasia 1+ Anisocytosis 1+ Ovalocytes 1+ Schistocytes None seen D-Dimer VBG pH VBG pCO2 VBG pO2 VBG HCO3 O2 Delivery Device O2 Liters/Min FiO2 Sodium 128 L 127 L Potassium 4.9 5.3 H Chloride 93 L 95 L Carbon Dioxide 26 26 Anion Gap 9 6 BUN 17 19 Creatinine 1.17 1.23 Estim Creat Clear Calc 52 47 Estimated GFR 59 56 L Glucose 80 79 POC Capillary Glucose Lactic Acid 0.7 Calcium 8.5 8.4 Phosphorus 4.7 H 5.1 H Magnesium 2.0 Total Bilirubin AST ALT Alkaline Phosphatase Troponin I C-Reactive Protein 7.1 H NT-Pro-B Natriuret Pep Total Protein Albumin 3.8 Lipase Procalcitonin Nasal MRSA (PCR) Detected A* Influenza A (RT-PCR) Influenza B (RT-PCR) RSV (RT-PCR) SARS-CoV-2 RNA (RT-PCR) 10/15/24 10/15/24 04:55 05:03 WBC RBC Hgb Hct MCV MCH MCHC RDW Plt Count MPV Immature Gran % (Auto) Neut % (Auto) Lymph % (Auto) [place] % (Auto) Eos % (Auto) Baso % (Auto) Lymph # (Auto) [place] # (Auto) Eos # (Auto) Baso # (Auto) Abs Immat Gran (auto) Absolute Neuts (auto) Absolute Nucleated RBC Total Counted Neutrophils % (Manual) Band Neutrophils % Lymphocytes % (Manual) Monocytes % (Manual) Eosinophils % (Manual) Nucleated RBC % Abs Neuts (Manual) Abs Lymphs (Manual) Abs Monocytes (Manual) Absolute Eos (Manual) Platelet Estimate Hypochromasia Anisocytosis Ovalocytes Schistocytes D-Dimer VBG pH 7.208 L* VBG pCO2 63.1 H VBG pO2 53.3 H VBG HCO3 24.6 O2 Delivery Device High flow nasal annamarie O2 Liters/Min 8.0 FiO2 66 Sodium Potassium Chloride Carbon Dioxide Anion Gap BUN Creatinine Estim Creat Clear Calc Estimated GFR Glucose POC Capillary Glucose Lactic Acid Calcium Phosphorus Magnesium Total Bilirubin AST ALT Alkaline Phosphatase Troponin I C-Reactive Protein Cancelled NT-Pro-B Natriuret Pep Total Protein Albumin 3.7 Lipase Procalcitonin 0.1 Nasal MRSA (PCR) Influenza A (RT-PCR) Influenza B (RT-PCR) RSV (RT-PCR) SARS-CoV-2 RNA (RT-PCR) Quality VTE Prophylaxis VTE prophylaxis: mechanical ordered
--- NOTE | 2024-10-15 07:28 | PC.NURSE ---
Spouse and daughter at bedside, refused bipap and CT Scan at this time. Educated patient on indication for Bipap and CT Scan and both verbalized understanding .
[2024-10-15] MEDS: SACUBITRIL/VALSARTAN 12-13 MG TABLET 1 TAB PO ×2 (09:14→20:54)
[2024-10-15] MEDS: ATORVASTATIN 20 MG TABLET PO (09:14)
[2024-10-15] MEDS: PANTOPRAZOLE 40 MG TABLET PO ×2 (09:14→20:54)
[2024-10-15] MEDS: FOLIC ACID 1 MG TABLET PO (09:14)
[2024-10-15] MEDS: CLOPIDOGREL BISULFATE 75 MG TABLET PO (09:14)
[2024-10-15] MEDS: MAGNESIUM OXIDE 400 MG TABLET PO (09:14)
[2024-10-15] MEDS: ASPIRIN 81 MG CHEWABLE TABLET PO (09:14)
[2024-10-15] MEDS: FUROSEMIDE 20 MG TABLET PO (09:15)
[2024-10-15] MEDS: MIDODRINE HCL 10 MG TABLET PO ×3 (09:17→17:04)
[2024-10-15] MEDS: ACIDOPHILUS/BULGARICUS CHEWABLE TABLET 1 TABLET PO ×2 (09:17→17:04)
[2024-10-15] MEDS: COLCHICINE 0.6 MG TABLET PO ×2 (09:17→20:54)
[2024-10-15] MEDS: ALPRAZolam (*CRX) 0.25 MG TABLET PO (17:03)
[2024-10-15] MEDS: traMADol HCL (*CRX) 50 MG TABLET PO (17:04)
[2024-10-15] MEDS: MIRTAZAPINE 7.5 MG TABLET PO (20:54)
[2024-10-15] MEDS: LATANOPROST 0.005% OP SOLN 2.5 ML BTL 1 DROP LEFT EYE (20:55)
[2024-10-15] MEDS: MUPIROCIN 2% OINT 22 GM TUBE 1 APPLIC EACH NARE (20:56)
[2024-10-15] MEDS: FLUTICASONE PROPIONATE 0.05% NA SPR 16 GM BTL (*BKC) 1 SPRAY NASAL (20:56)
[2024-10-15] MEDS: ACETAMINOPHEN 325 MG TABLET 650 MG PO (23:02)
[2024-10-16] MEDS: MORPHINE SULFATE (*CRX) 2 MG/ML INJ IV PUSH ×2 (01:25→05:24)
--- NOTE | 2024-10-16 05:47 | PC.NURSE ---
patient signed hospice wishes on monday10/14/2024. plan to return to [facility] sunday 10/15 on hospice but did not happen. patient's status declined over night and was having difficulty swallowing pills, following commands. became more confused and restless and c/o generalized pain and discomfort. respirations became more shallow and labored overnight and now has periods of apnea lasting 15 to 20 seconds and is audibly congested. suction set up and secretions cleared from back of throat. called hospitalist devan dee and obtained orders for prn morphine, SL ativan, and SL atropine. and daughter at bedside since shift change and have called in several more family members to be at bedside. comfort and reassurance given.
[2024-10-16] MEDS: LORazepam (*CRX) 2 MG/ML ORAL CONCENTRATE 1 ML SYRINGE SUBLINGUAL (05:48)
--- NOTE | 2024-10-16 06:09 | P.DN_ITS ---
Discharge Summary Date and Time Date of : 10/16/24 Time of : 06:05 Provider Pronounced By: 2 RNs Name of First RN That Pronounced: Fran Name of Second RN That Pronounced: Syd Probable Cause of Probable Cause of : Cardiac arrest due to acute respiratory failure with hypercapnia and hypoxia due to sepsis/pneumonia Summary Hospital Course: 89-year-old male patient was admitted to the hospital with altered mental status and acute respiratory failure with hypercapnia and hypoxia. Patient had been unresponsive at his facility [facility] and was sent to the ER where family had requested to speak with hospice. Patient had awakened and returned to [facility]. He head agreed to hospice and signed his own consents. He was still requiring high-flow oxygen so he was kept in the hospital in order to titrate down oxygen. Plans had been to discharged to [facility] once he quit met was available likely later today. Overnight patient was not awake enough to swallow pills and he was appearing quite uncomfortable. Nursing staff contacted provider to see if they could administer IV pain medication. Couple hours later they contacted again stating that he was having gurgling sounds in the upper respiratory system. Suction setup and atropine drops initiated sublingual. These noises were distressing to the family and made it seem like the patient was not very comfortable so the frequency of pain medication was increased and sublingual lorazepam ordered for additional comfort measures. Discontinued all medications that were not comfort focused. Within an hour patient . was confirmed by 2 RNs and provider was notified. Additional Data Confirmation of as documented by pronouncing clinician: Palpable Pulses, Response to Stimuli, Heart Tones and Breath Sounds Family: at bedside Name of Provider Notified: Tiburcio Aldridge APRN Time Provider Notified: 06:06 Was code activated?: No Provider Requests Autopsy: No Family Requests Autopsy: No Machine Learning Intern Notified: Yes Date [facility] Notified of : 10/16/24 Advance directives: Yes Hospice patient?: Yes (Planned to initiate hospice on return to [facility] later today)
== END 2024-10-16 10:14 | disposition expired ==
LOC: ANHED 13:54 → ANH3MEDSUR 20:40 → ANH3MED 21:51
PROVIDERS: Nurse Practitioner; Admitting Provider Internal Medicine; Emergency Provider Student in an Organized Health Care Education/Training Program; PCP Family Medicine; Visit Provider Internal Medicine
DX: J96.01 Acute respiratory failure with hypoxia (principal); J96.02 Acute respiratory failure with hypercapnia; R65.21 Severe sepsis with septic shock; J18.9 Pneumonia, unspecified organism; R79.82 Elevated C-reactive protein (CRP); E87.5 Hyperkalemia; E87.1 Hypo-osmolality and hyponatremia; J81.1 Chronic pulmonary edema; I48.91 Unspecified atrial fibrillation; I11.0 Hypertensive heart disease with heart failure; I50.9 Heart failure, unspecified; Z95.818 Presence of other cardiac implants and grafts; D64.9 Anemia, unspecified; I25.10 Atherosclerotic heart disease of native coronary artery without angina pectoris; E78.5 Hyperlipidemia, unspecified; I48.20 Chronic atrial fibrillation, unspecified; Z66 Do not resuscitate; Z20.822 Contact with and (suspected) exposure to COVID-19; Z98.890 Other specified postprocedural states; Z90.49 Acquired absence of other specified parts of digestive tract; H40.9 Unspecified glaucoma; Z79.01 Long term (current) use of anticoagulants; Z79.02 Long term (current) use of antithrombotics/antiplatelets; I31.39 Other pericardial effusion (noninflammatory); Z79.899 Other long term (current) drug therapy; Z79.51 Long term (current) use of inhaled steroids; Z79.891 Long term (current) use of opiate analgesic; Z79.52 Long term (current) use of systemic steroids; Z87.891 Personal history of nicotine dependence; Z82.49 Family history of ischemic heart disease and other diseases of the circulatory system; Z84.89 Family history of other specified conditions
CPT/HCPCS: 36415; 71045; 80053; 80069; 82803; 82948; 83605; 83690; 83735; 83880; 84145; 84484; 85025; 85380; 85652; 86140; 87637; 87641; 93005; 96361; 96365; 96367; 96375; 96376; 99285; A9270; G0378; J0612; J0692; J1815; J1938; J2270; J3373; J7040